=== PATIENT | male | born 1975 | race Caucasian/White ===

== ENCOUNTER 2019-01-04 08:08 | Day surgery (SDC) | payer MEDICAID, SELFPAY ==
--- NOTE | 2018-12-27 16:24 | EKG12_ITS ---
Test Reason : PRE OP Blood Pressure : / mmHG Vent. Rate : 089 BPM Atrial Rate : 089 BPM P-R Int : 136 ms QRS Dur : 096 ms QT Int : 360 ms P-R-T Axes : 048 017 035 degrees QTc Int : 438 ms Normal sinus rhythm Normal ECG When compared with ECG of 03-APR-2005 15:08, No significant change was found Confirmed by DEMETRIA GILL, OMAR ([id number]), editor sound JESUS HIDALGO ([id number]) on 01/03/2019 1:16:18 PM Referred By: Daniel Gonzalez Confirmed By:OMAR AUGUSTIN MD
[2018-12-27 17:18] LABS: Hemoglobin 14.6 g/dl (13.0-16.5); Mean Corpuscular Hgb 27.2 pg (27.0-32.0); Mean Corpuscular Volume 80.1 fL (80-94); Mean Platelet Vol. 10.3 fl (6.2-12.0); Platelet Count 272 K/mm3 (150-450); RBC Distribution Width CV 14.1 % (11.6-14.6); RBC Distribution Width SD 40.4 fl (35.1-43.9); Red Blood Count 5.37 M/mm3 (4.6-6.2); White Blood Count 9.2 K/mm3 (4.4-11.0)
[2018-12-27 17:19] LABS: Scan Indicated on CBC? Y/N NO
[2018-12-27 17:44] LABS: Anion Gap 8 (5-15); BUN 12 mg/dL (7-18); BUN/Creat Ratio 13.8 RATIO (10-20); Calcium,Total 8.8 mg/dL (8.5-10.1); Chloride 104 mmol/L (98-107); Creatinine, Serum 0.87 mg/dL (0.70-1.30); EST Glomerular Filtration Rate 102 mL/min (>60); Est Glom Filt Rate - Afr Amer 123 mL/min (>60); Glucose 224 mg/dL (74-106); Potassium 3.8 mmol/L (3.5-5.1); Sodium Level 136 mmol/L (136-145)
[2018-12-28 15:49] LABS: Hemoglobin A1c 8.2 % (4.2-6.3)
[2019-01-04] VITALS (8 sets, daily range): BP systolic 121–159; BP diastolic 78–97; PULSE 76–105; RESP 16–18; TEMP 35.7–36.5; O2SAT 92–100; BMI 45.3
[2019-01-04 09:00] LABS: Bedside Glucose 196 mg/dL (70-110)
[2019-01-04] MEDS: Oxymetazoline 0.05% 1 SPRAY SPRAY.BTL 15 SPRAY (10:12)
[2019-01-04] MEDS: Mupirocin Ointment 22gm Tube 1 APPLIC (11:51)
--- NOTE | 2019-01-04 11:57 | DCINST_ITS ---
You will use the following diet at home:: No restrictions Your food should be the consistency of: Regular Discharge Activity: May not drive while taking narcotic pain medications. Call your doctor if your incision/area has: Sudden Increased Bleeding, Increased Pain/ Swelling Additional Dressing/Incision Instructions:: mupirocin ointment to incision and nostrils twice daily. do not get nose wet. however, the morning of your follow up appointment, get it very wet in the shower. sleep with head of bed elevated. saline nasal spray to both nostrils 5 times daily. Allergies/Adverse Reactions: Allergies No Known Allergies Allergy (Verified 01/04/19 08:43) Medications to take at Discharge Allopurinol [Zyloprim] 300 mg PO DAILY 12/28/18 Atorvastatin Calcium [Lipitor] 40 mg PO QHS 12/28/18 Cholecalciferol (VIT D3) [Vitamin D] 1,000 unit PO DAILY 12/28/18 Cyclobenzaprine [Flexeril] 10 mg PO PRN PRN 12/28/18 Lisinopril [Zestril] 20 mg PO QHS 12/28/18 Metformin HCl [Glucophage] 500 mg PO 4X/DAY 12/28/18 Vitamin B Complex 1 tab PO DAILY 12/28/18 Oxycodone HCl/Acetaminophen [Percocet 5/325] 1 tab PO Q6H PRN PRN 5 Days #20 tab 01/04/19 Smz/Tmp Ds [Bactrim Ds] 1 tab PO BID #10 tab 01/04/19 The following prescriptions were given: Oxycodone HCl/Acetaminophen [Percocet 5/325] 1 tab PO Q6H PRN PRN 5 Days #20 tab PRN Reason: Pain Smz/Tmp Ds [Bactrim Ds] 1 tab PO BID #10 tab Orders to be completed after discharge: Hemoglobin A1c Time Frame: 12/28/18, Location: Laboratory Primary Care Physician: Ean Luu DO [Primary Care Provider] - Test Results: Test results from this visit will be discussed in further detail at your follow- up appointment, if applicable. Please Follow Up With: Daniel Gonzalez MD When: 1 week
--- NOTE | 2019-01-04 11:57 | PCM.OPRPT ---
Problem List (1) Nasal congestion Status: Chronic (2) Nasal turbinate hypertrophy Status: Chronic (3) Nasal valve collapse Status: Chronic (4) Deviated nasal septum Status: Chronic Report of Operation Date of Procedure: 01/04/19 Pre-Operative Diagnosis: 1. nasal congestion. 2. nasal septal deviation. 3. inferior turbinate hypertrophy. 4. internal nasal valve collapse, right and left Post-Operative Diagnosis: 1. nasal congestion. 2. nasal septal deviation. 3. inferior turbinate hypertrophy. 4. internal nasal valve collapse, right and left Surgery/Procedure Performed:: 1. open septorhinoplasty. 2. correction internal nasal valve collapse, right and left. 3. submucous resection inferior turbinates, right and left Type of Anesthesia:: General Description of Procedure: on the day of the procedure, after appropriate informed consent was obtained, the patient was brought to the operating room and placed in supine position on the operating table. he was placed under general endotracheal anesthesia by the anesthesiologist. the endotracheal tube was secured, the eyes were taped. the nose was injected with lidocaine/epinephrine. the face was prepped and draped in sterile fashion. the nose was decongested with oxymetazoline soaked pledgets. an inverted v columellar incision was made with a lower elwha blade. this traversed into right and left marginal incisions with an iris scizzor and three point retraction; the right and left lower lateral cartilages were skeletonized. the left and right scroll region and upper lateral cartilages were skeletonized. the medial crura were lateralized with brown forceps and the anterior septal angle was found with a color[place] tip bovie. left then right submucoperichondrial flaps were elevated with a rubi elevator. this was taken posteriorly to the bony/cartilaginous junction and inferiorly to the maxillary crest. the right and left upper lateral cartilages were disarticulated from the nasal septum with a #15 blade. given the patients high severe septal deflection, a D knife was used to remove the cartilaginous septum except for a 1cm preserved area off of the keystone. this was shaped for an anterior septal reconstruction on the back table and saved. deviated portions of the perpendicular plate of the ethmoid and vomer were removed with a gary sierra. the cartilage graft was placed as an internal optical laboratory mechanic graft on the right; this was sutured into place using 4-0 PDS between the septum and right upper lateral cartilage as well as to the maxillary crest periosteum. a 1cm x 2 mm internal optical laboratory mechanic graft was sutured between the septum and left upper lateral cartilage with 4-0 PDS. the submucoperichondrial flaps were brought together with numerous 4-0 chromic, several incorporating the graft. the head of the left inferior turbinate was injected with lidocaine/epinephrine. an incision was made in the head with a #15 blade. this was dissected submucosally with a rubi, reduced using suction electrocautery and outfractured using a boies elevator. the head of the right inferior turbinate was injected with lidocaine/epinephrine. an incision was made in the head with a #15 blade. this was dissected submucosally with a rubi, reduced using suction electrocautery and outfractured using a boies elevator. the inverted v columellar incision was closed with 7-0 vicryl, and the marginal incisions with 4-0 chromic. the latera trocar system was loaded. the right ala was everted with a double pronged skin hook. the vestibular skin was pierced with the trocar and advanced deep to the skin and soft tissue envelope, and lateral to the upper lateral cartilage and nasal bone. the implant was deployed and the trocar removed. the latera trocar system was loaded. the left ala was everted with a double pronged skin hook. the vestibular skin was pierced with the trocar and advanced deep to the skin and soft tissue envelope, and lateral to the upper lateral cartilage and nasal bone. the implant was deployed and the trocar removed. kaminski splints were sutured into place and a dorsal nasal splint was placed. a nasogastric tube was inserted and gastric contents were evacuated. the table was rotated 90 degrees toward the anesthesiologist where he was extubated. he was transferred to the PACU in stable condition.
--- NOTE | 2019-01-04 12:22 | OP.PCM_ITS ---
Problem List (1) Nasal congestion Status: Chronic (2) Nasal turbinate hypertrophy Status: Chronic (3) Nasal valve collapse Status: Chronic (4) Deviated nasal septum Status: Chronic Report of Operation Date of Procedure: 01/04/19 Pre-Operative Diagnosis: 1. nasal congestion. 2. nasal septal deviation. 3. inferior turbinate hypertrophy. 4. internal nasal valve collapse, right and left Post-Operative Diagnosis: 1. nasal congestion. 2. nasal septal deviation. 3. inferior turbinate hypertrophy. 4. internal nasal valve collapse, right and left Surgery/Procedure Performed:: 1. open septorhinoplasty. 2. correction internal nasal valve collapse, right and left. 3. submucous resection inferior turbinates, right and left Type of Anesthesia:: General Description of Procedure: on the day of the procedure, after appropriate informed consent was obtained, the patient was brought to the operating room and placed in supine position on the operating table. he was placed under general endotracheal anesthesia by the anesthesiologist. the endotracheal tube was secured, the eyes were taped. the nose was injected with lidocaine/epinephrine. the face was prepped and draped in sterile fashion. the nose was decongested with oxymetazoline soaked pledgets. an inverted v columellar incision was made with a la posta blade. this traversed into right and left marginal incisions with an iris scizzor and three point retraction; the right and left lower lateral cartilages were skeletonized. the left and right scroll region and upper lateral cartilages were skeletonized. the medial crura were lateralized with brown forceps and the anterior septal angle was found with a color[place] tip bovie. left then right submucoperichondrial flaps were elevated with a rubi elevator. this was taken posteriorly to the bony/cartilaginous junction and inferiorly to the maxillary crest. the right and left upper lateral cartilages were disarticulated from the nasal septum with a #15 blade. given the patients high severe septal deflection, a D knife was used to remove the cartilaginous septum except for a 1cm preserved area off of the keystone. this was shaped for an anterior septal reconstruction on the back table and saved. deviated portions of the perpendicular plate of the ethmoid and vomer were removed with a gary sierra. the cartilage graft was placed as an internal wealth management advisor graft on the right; this was sutured into place using 4-0 PDS between the septum and right upper lateral cartilage as well as to the maxillary crest periosteum. a 1cm x 2 mm internal wealth management advisor graft was sutured between the septum and left upper lateral cartilage with 4-0 PDS. the submucoperichondrial flaps were brought together with numerous 4-0 chromic, several incorporating the graft. the head of the left inferior turbinate was injected with lidocaine/epinephrine. an incision was made in the head with a #15 blade. this was dissected submucosally with a rubi, reduced using suction electrocautery and outfractured using a boies elevator. the head of the right inferior turbinate was injected with lidocaine/epinephrine. an incision was made in the head with a #15 blade. this was dissected submucosally with a rubi, reduced using suction electrocautery and outfractured using a boies elevator. the inverted v columellar incision was closed with 7-0 vicryl, and the marginal incisions with 4-0 chromic. the latera trocar system was loaded. the right ala was everted with a double pronged skin hook. the vestibular skin was pierced with the trocar and advanced deep to the skin and soft tissue envelope, and lateral to the upper lateral cartilage and nasal bone. the implant was deployed and the trocar removed. the latera trocar system was loaded. the left ala was everted with a double pronged skin hook. the vestibular skin was pierced with the trocar and advanced deep to the skin and soft tissue envelope, and lateral to the upper lateral cartilage and nasal bone. the implant was deployed and the trocar removed. kaminski splints were sutured into place and a dorsal nasal splint was placed. a nasogastric tube was inserted and gastric contents were evacuated. the table was rotated 90 degrees toward the anesthesiologist where he was extubated. he was transferred to the PACU in stable condition.
[2019-01-04 12:25] LABS: Bedside Glucose 214 mg/dL (70-110)
[2019-01-04] MEDS: HYDROcodone Bitartrate/Apap 5/325 Tablet PO (14:49)
== END 2019-01-04 15:16 | disposition home or self-care (01) ==
LOC: SDC 08:09 → AC 08:09
PROVIDERS: Family Provider Student in an Organized Health Care Education/Training Program; PCP Student in an Organized Health Care Education/Training Program; Referring Provider Otolaryngology; Visit Provider Otolaryngology
PROC: (CPT 20912; principal; 2019-01-04 09:55)
DX: J34.2 Deviated nasal septum (principal); J34.3 Hypertrophy of nasal turbinates; R09.81 Nasal congestion; M95.0 Acquired deformity of nose; G47.33 Obstructive sleep apnea (adult) (pediatric); I10 Essential (primary) hypertension; E11.9 Type 2 diabetes mellitus without complications; E78.00 Pure hypercholesterolemia, unspecified; F41.9 Anxiety disorder, unspecified; F32.9 Major depressive disorder, single episode, unspecified; Z79.84 Long term (current) use of oral hypoglycemic drugs; Z79.899 Other long term (current) drug therapy
CPT/HCPCS: 20912; 30140; 30420; 36415; 80048; 82962; 83036; 85027; 93005; J7120; J2405

== ENCOUNTER → 2019-02-24 | Outpatient (CLI) | payer MEDICAID, SELFPAY ==
[2019-01-04 08:45] VITALS: BMI 45.3
== END | disposition home or self-care (01) ==
LOC: SL 19:50
PROVIDERS: Family Provider Student in an Organized Health Care Education/Training Program; PCP Student in an Organized Health Care Education/Training Program; Referring Provider Otolaryngology; Visit Provider Otolaryngology
DX: G47.10 Hypersomnia, unspecified (principal); R06.81 Apnea, not elsewhere classified; R06.83 Snoring; I10 Essential (primary) hypertension
CPT/HCPCS: 95810

== ENCOUNTER → 2019-03-22 | Outpatient (CLI) | payer MEDICAID, SELFPAY ==
[2019-03-10 11:03] VITALS: BMI 45.3
== END | disposition home or self-care (01) ==
LOC: SL 15:22
PROVIDERS: Family Provider Student in an Organized Health Care Education/Training Program; PCP Student in an Organized Health Care Education/Training Program; Referring Provider Nurse Practitioner Acute Care; Visit Provider Nurse Practitioner Acute Care
DX: Z46.89 Encounter for fitting and adjustment of other specified devices (principal)

== ENCOUNTER → 2019-07-29 | Outpatient (CLI) | payer MEDICAID, SELFPAY ==
[2019-06-30 08:08] VITALS: BMI 44.4
== END | disposition home or self-care (01) ==
LOC: SL 22:46
PROVIDERS: Family Provider Student in an Organized Health Care Education/Training Program; PCP Student in an Organized Health Care Education/Training Program; Referring Provider Internal Medicine Critical Care Medicine; Visit Provider Internal Medicine Critical Care Medicine
DX: G47.33 Obstructive sleep apnea (adult) (pediatric) (principal)
CPT/HCPCS: 95811

== ENCOUNTER → 2019-08-12 | Outpatient (CLI) | payer MEDICAID, SELFPAY ==
[2019-06-30 08:08] VITALS: BMI 44.4
== END | disposition home or self-care (01) ==
LOC: SL 07:46
PROVIDERS: Family Provider Student in an Organized Health Care Education/Training Program; PCP Student in an Organized Health Care Education/Training Program; Referring Provider Nurse Practitioner Acute Care; Visit Provider Nurse Practitioner Acute Care
DX: Z46.89 Encounter for fitting and adjustment of other specified devices (principal)

== ENCOUNTER → 2019-10-03 09:49 | Outpatient (CLI) | payer MEDICAID, SELFPAY ==
[2019-10-03 08:12] VITALS: BMI 44.4
== END ==
PROVIDERS: Family Provider Student in an Organized Health Care Education/Training Program; PCP Student in an Organized Health Care Education/Training Program; Visit Provider Nurse Practitioner Acute Care
DX: Z46.89 Encounter for fitting and adjustment of other specified devices (principal)
CPT/HCPCS: 98960; G0463

== ENCOUNTER → 2021-06-04 07:20 | Outpatient (CLI) | payer MEDICAID, SELFPAY ==
[2021-06-18 18:31] LABS: ACHR AB Modulating <12 % (0-20); ACHR Recep AB, Blocking 10 % (0-25); Acetylcholine Receptor Binding < 0.03 nmol/L (0.00-0.24)
== END ==
PROVIDERS: PCP Student in an Organized Health Care Education/Training Program; Referring Provider Ophthalmology; Visit Provider Ophthalmology
DX: H02.412 Mechanical ptosis of left eyelid (principal)
CPT/HCPCS: 36415; 83519; 84238

== ENCOUNTER → 2024-10-05 | Outpatient (CLI) | payer OTHER, SELFPAY ==
--- NOTE | 2024-10-05 12:32 | RAD_ITS ---
STUDY: X-RAY - BILATERAL RIBS WITH CHEST REASON FOR EXAM: Male, 49 years old. Fall onto right anterior rib cage TECHNIQUE - RIBS: 6 view(s) of the ribs. TECHNIQUE - CHEST: Single PA view of the chest. COMPARISON: None. FINDINGS - RIBS : Normal visualized ribs without a demonstrated fracture. FINDINGS - CHEST: The lungs are clear and expanded. There is no demonstrated pleural abnormality. Normal size heart. Normal mediastinum and elena. Normal visualized pulmonary arteries. Normal visualized aortic arch and descending thoracic aorta. Normal visualized thoracic spine. Normal visualized ribs, clavicles, and shoulders. There is no demonstrated abnormality of the visualized soft tissue structures of the upper abdomen. RAD/Ribs Adilson Min 4V w/PA Chest IMPRESSION: RIBS: Normal x-ray examination of the bilateral ribs. CHEST: Normal x-ray examination of the chest. Electronically Signed: Osbaldo Montalvo MD at 13:03 EST ,
== END | disposition home or self-care (01) ==
LOC: MTRAD 12:32
PROVIDERS: PCP Student in an Organized Health Care Education/Training Program; Referring Provider Physician Assistant; Visit Provider Physician Assistant
DX: S20.211A Contusion of right front wall of thorax, initial encounter (principal); W19.XXXA Unspecified fall, initial encounter
CPT/HCPCS: 71111

== ENCOUNTER 2025-03-24 18:55 | Inpatient (IN) | payer OTHER, SELFPAY ==
[2025-03-24 18:57] VITALS: BP 93/80; PULSE 117; RESP 18; TEMP 36.4; O2SAT 96; BMI 39.9
--- NOTE | 2025-03-24 19:35 | EX.ED.DYSGE1 ---
HPI History of Present Illness Chief Complaint: General Illness Onset/Context/Timing Onset: Days Context: Gradual Onset Timing: Intermittent Current Severity: Mild Maximum Severity: Mild Narrative Narrative: 50-year-old male history of diabetes on metformin. States last 2 to 3 days. Thursday started with diarrhea at night. Multiple episodes again last night. Thursday felt lightheaded dehydrated. He also said he developed a red rash. Currently is on no antibiotics. Says it itches. Primarily below his abdomen back and legs. No prior history of allergic reaction. Prior similar symptoms: No Recent Illness/Hospitalization: No PFSH PFS Medical History Contusion of right chest wall Diabetes Deviated nasal septum Nasal valve collapse Nasal turbinate hypertrophy Nasal congestion Home Medications ?Medication ?Instructions ?Recorded ?Last Taken ?Type allopurinol 300 mg tablet 300 mg PO DAILY 12/28/18 03/23/25 History atorvastatin 40 mg tablet 40 mg PO QHS 12/28/18 03/23/25 History lisinopril 20 mg tablet 20 mg PO QHS 12/28/18 03/23/25 History metformin 500 mg tablet 750 mg PO DAILY 12/28/18 03/23/25 History glipizide 10 mg tablet, extended 10 mg PO QPM 03/24/25 03/23/25 History release 24 hr phentermine 37.5 mg tablet 37.5 mg PO DAILY 03/24/25 03/23/25 History topiramate 50 mg tablet 50 mg PO QHS 03/24/25 03/23/25 History Allergy/AdvReac Type Severity Reaction Status Date / Time No Known Allergies Allergy Verified 03/24/25 18:57 Family History Father Cancer prostate CVA (cerebral vascular accident) Diabetes Surgical History History of appendectomy History of rhinoplasty Social History Smoking Status: Never smoker second hand exposure: No ROS ROS ED ROS Narrative Diarrhea. Rash. Itching. Constitutional Constitutional ED: Denies chills or fever(s) Eyes Eyes: Denies blurry vision ENT ENT ED: Denies ear pain Cardiovascular Cardiovascular: Denies chest pain Respiratory/Chest Respiratory/Chest: Denies cough or dyspnea Gastrointestinal Gastrointestinal: Reports diarrhea; Denies abdominal pain, constipation, melena, nausea or vomiting Genitourinary Genitourinary ED: Denies dysuria or hematuria Musculoskeletal Musculoskeletal: Denies arthralgias or back pain Integumentary Reports rash; Denies abscess Neurologic Neurologic: Denies headache(s) Psychiatric Psychiatric: Denies anxiety Endocrine Endocrinology: Denies cold intolerance or heat intolerance Hematologic/Lymphatic Hematologic/Lymphatic: Reports none Allergic/Immunologic Allergic/Immunologic ED: Denies mouth swelling, tongue swelling or urticaria EXAM Physical Exam Narrative Exam Narrative: 50-year-old male. Sitting upright in bed. Initial blood pressure 93/80. Currently 112/72. Patient does not look septic or toxic. H EENT exam pupils round react to light. Dry mucous membranes. No facial droop no trauma. Neck nontender no JVD. Lungs clear to auscultation bilaterally. Heart tachycardic 117 no murmur. Chest wall ribs nontender. Abdomen soft nontender. Red rash that blanches no hives. No petechiae or purpura. No vesicles or pustules. Moving all 4 extremities. He is a chronic red rash of the lower extremities that does not eduardo that is not new he has and has had it for years. Calves nontender no edema. No cords. Back nontender. Nondescript rash that blanches there also. Again no vesicles. No pustules. No petechiae or peripheral. No sloughing of skin. Neurologically is awake alert. Answering questions following commands. Const Vital Signs: 03/24/25 18:57 03/24/25 19:28 03/24/25 20:56 Temperature 97.6 F L Temperature Source Oral Pulse Rate 117 H 103 H Respiratory Rate 18 Respiratory Effort Normal Non-Labored Respiratory Pattern Normal Blood Pressure 93/80 113/74 Blood Pressure Mean 84 87 Pulse Ox 96 93 Oxygen Delivery Method Room Air Room Air 03/24/25 22:00 03/24/25 22:20 03/24/25 23:08 Temperature 98.6 F 98.6 F 98.6 F Temperature Source Oral Oral Pulse Rate 103 H 104 H 104 H Respiratory Rate 19 H 16 Respiratory Effort Respiratory Pattern Blood Pressure 113/74 101/56 L 101/56 L Blood Pressure Mean 87 71 71 Pulse Ox 93 93 93 Oxygen Delivery Method Room Air Room Air 03/24/25 23:20 Temperature 98.6 F Temperature Source Oral Pulse Rate 100 Respiratory Rate 16 Respiratory Effort Respiratory Pattern Blood Pressure 116/67 Blood Pressure Mean 83 Pulse Ox 94 Oxygen Delivery Method Room Air Positive well nourished and well developed; Negative for cachectic, contractures or unkempt General Appearance ED: well developed and NAD; Negative for unkempt, cachectic, contractures, cyanotic, diaphoretic or pallor Nutritional Appearance: Negative for cachectic HEENT Reports dry mucous membranes Negative for trauma or tenderness Mouth ED: Yes dry mucous membranes Mouth: dry mucous membranes Eyes PERRL and EOMs intact bilaterally General Eye ED: Negative for pale conjunctiva or scleral icterus Neck no lymphadenopathy, supple and no JVD Chest Wall inspection of chest normal and palpation of chest normal Resp normal respiratory effort and clear to auscultation bilaterally Effort and Inspection: Negative for retractions Auscultation: Negative for rales, rhonchi, wheezes or diminished lung sounds Cardio regular rate, regular rhythm, S1 normal heart sound, S2 normal heart sound and no murmurs GI normal to inspection, nondistended, normoactive bowel sounds, non-tender, non-distended and no masses Auscultation: normoactive bowel sounds Palpation: soft; Negative for tender, guarding or rebound tenderness present Back/Spine no CVA tenderness General Back: Negative for CVA tenderness Cervical Spine: Negative for cervical spine tenderness Thoracic Spine / Upper Back: Negative for thoracic spinal tenderness or paraspinal muscle tenderness Lumbar Spine / Lower Back: Negative for lumbar spinal tenderness Extremity normal to inspection Extremity Narrative: Chronic rash lower extremity does not eduardo. General Extremety ED: Negative for edema or tenderness General Extremity: Negative for edema Neuro oriented x3 Sensorium / Orientation: alert; Negative for orientation impaired, lethargic or stuporous Motor Exam: strength 5/5 throughout Psych mental status grossly normal Appearance: Negative for unkempt Skin No no rashes or lesions noted and no wounds Skin Narrative: Rash abdomen and back. Red. Not hives. Possibly generalized allergic reaction. Does eduardo. No petechiae or purpura. No pustules. No vesicles. No sloughing of skin General Skin Exam: Negative for jaundice or pallor Lesions: No lesion noted Rashes: rashes noted MDM MDM MDM Narrative Medical decision making narrative: 50-year-old male allergic reaction with a rash we treated with IV Solu-Medrol. Was transiently hypotension has been having nausea, vomiting and diarrhea. clinically looks dehydrated. Will be treated with IV fluids and screening labs will be obtained. Patient has no abdominal pain. Multiple repeat exams patient was tachycardic and hypotensive was given 2 L of fluid that is all improved. Currently is resting comfortably at 11:50 PM. He is feeling improved. We went over his test results. His CAT scan has not shown anything specific. I will speak with the hospitalist about admission due to his elevated white count, transient hypotension, dehydration. History & Record Review Discussion w/independent historian: Patient and Family Additional record(s) reviewed:: Prior inpatient record, Prior outpatient record, Prior ED visit and Prior labs Lab Data Attestation: I reviewed the patient's lab results. Lab results narrative: CBC shows an elevated white count 21.2. H&H 18.756. Platelets 454. BMP shows sodium 130. Chloride 97. CO2 at 13. Gap is 19. BUN and creatinine 26 and 1.56. Glucose of 391. Lactic acid is elevated 5.9. Liver enzymes unremarkable. Lipase mildly elevated at 140. Urinalysis beginning positive for glucose. No nitrates. Micro pending. Labs: Laboratory Results - last 24 hr 03/24/25 03/24/25 19:53 23:10 WBC 21.2 H RBC 6.67 H Hgb 18.7 H* Hct 56.3 H MCV 84.4 MCH 28.0 MCHC 33.2 RDW Std Deviation 42.7 RDW Coeff of Hero 14.6 Plt Count 454 H MPV 10.0 Immature Gran % (Auto) 1.400 H Neut % (Auto) 70.6 H Lymph % (Auto) 19.5 [place] % (Auto) 5.6 Eos % (Auto) 2.0 Baso % (Auto) 0.9 Absolute Neuts (auto) 15.0 H Absolute Lymphs (auto) 4.14 Nucleated RBC % 0 Sodium 130 L Potassium 3.7 Chloride 97 L Carbon Dioxide 13.4 L Anion Gap 19 H BUN 26 H Creatinine 1.56 H Estim Creat Clear Calc 74.06 Est GFR (MDRD) Non-Af 54 L BUN/Creatinine Ratio 16.3 Glucose 391 H Lactic Acid 5.9 H* Calcium 9.4 Total Bilirubin 1.02 Direct Bilirubin 0.31 H AST 23 ALT 27 Alkaline Phosphatase 110 Total Protein 7.6 Albumin 4.5 Globulin 3.0 Lipase 140 H Urine Color Yellow Urine Clarity Clear Urine pH 5.0 Ur Specific [place] 1.010 Urine Protein 100 H Urine Glucose (UA) 1000 H Urine Ketones 5 H Urine Occult Blood Negative Urine Nitrite Negative Urine Bilirubin Negative Urine Urobilinogen Normal Ur Leukocyte Esterase Negative Radiography Diagnostic Testing: Clinical Impression(s) from Imaging Studies Abdomen/Pelvis CT 03/24/25 22:25 IMPRESSION: 1. Small esophageal hiatal hernia. 2. Hepatomegaly with fatty infiltration. 3. Fecal retention in the colon consistent with constipation. 4. Umbilical hernia containing fat. 5. No obstructive uropathy. 6. Degenerative changes lumbar spine as described. Reading Location: [facility] Rhythm Strip Rhythm Strip: Sinus Rhythm Rate: 88 Ectopy: None EKG Initial EKG: Attestation: I personally reviewed and interpreted this EKG as follows: Interpretation: Sinus Rhythm and No Acute Injury Pattern Comments: Normal sinus rhythm rate 88 no acute signs of ID or ischemia. No dysrhythmia. Discharge Plan Dx/Rx/DC Orders Clinical Impression: Diarrhea, Acute dehydration, Acute kidney injury, Acute hypotension, Leukocytosis, History of diabetes mellitus, Acute lactic acidosis, Rash Disposition Disposition: [facility]
--- OUTSIDE RECORDS SUMMARY | 2025-03-24 19:51 | XMS RPT_ITS | CCD ---
Author Organization [facility] Care Team Providers Care Device Engineer Name Role Phone Jus CHISHOLM Ean L Primary Care Provider [phone] MARGARET FOFANA Referring Unavailable LUU, EAN L Primary Care Unavailable LUU, EAN L Primary Care Unavailable REBA VAUGHAN Referring Unavailable Luu DO Ean Francheska Primary Care Provider Jus CHISHOLM Ean Francheska Primary Care Provider Deepak ELECTRIC MOTOR ANALYST.[place]enn [place] Unavailable Otoniel ELECTRIC MOTOR ANALYST.[place]i [place] Unavailable EAN LUU Attending Unavailable LUU, EAN L Primary Care Unavailable LUU, EAN L Attending Unavailable LUU, EAN L Primary Care Unavailable TJ DEL ANGEL Referring Unavailable LUU, EAN L Primary Care Unavailable CATRINA LOFTON Attending Unavaila ble LUU, EAN L Referring Unavailable LUU, EAN L Primary Care Unavailable PATRICK RUBIN Attending Unavailable LUU, EAN Francheska Primary Care Unavailable PATRICK RUBIN Attending Unavailable JENN SOTELO Referring Unavailabl e LUU, EAN L Primary Care Unavailable JENN SOTELO Attending Unavailabl e LUU, EAN L Primary Care Unavailable LUU, EAN L Referring Unavailable LUU, EAN L Primary Care Unavailable LUU, EAN L Referring Unavailable LUU, EAN L Primary Care Unavailable LUU, EAN L Attending Unavailable LUU, EAN L Primary Care Unavailable LUU, EAN L Attending Unavailable LUU, EAN L Primary Care Unavailable Luu, Ean Primary Care Unavailable Raji Hendricks Attending Unavailable Luu, Ean Referring Unavailable Luu, Ean Referring Unavailable Raji Hendricks Attending Unavailable Ean Luu Primary Care Unavailable Raji Hendricks Attending Unavailable Ean Luu Primary Care Unavailable Ean Luu Referring Unavailable Raji Hendricks Attending Unavailable Raji Hendricks Referring Unavailable Ean Luu Primary Care Unavailable Ena Luu Primary Care Unavailable Raji Hendricks Attending Unavailable Ean Luu Referring Unavailable Allergies Allergy Classification Reported Allergen(s) Allergy Type Date of Onset Reaction(s) Facility (11 sources) Phentermine; Translations: [PHENTERMINE] Drug Allergy 03-25-2024 Other: See Comments [facility] Medications Current Medications Medication Drug Class(es) Dates Sig (Normalized) Sig (Original) acyclovir 800 mg oral tablet (1 source) Herpesvirus Nucleoside Analog DNA Polymerase Inhibitor, Herpes Simplex Virus Nucleoside Analog DNA Polymerase Inhibitor, Herpes Zoster Virus Nucleoside Analog DNA Polymerase Inhibitor Start: 07-15-2023 End: 07-25-2023 take 1 tablet by mouth three times daily acyclovir (ZOVIRAX) 800 mg tablet Indications: Trigeminal neuralgia of left side of face Take 1 tablet by mouth three times a day for 10 days. Take at first signs of outbreak. 30 tablet 0 07/15/2023 07/25/2023 Active Comment on above: Take 1 tablet by christina th three times a day for 10 days. Take at first signs of outbreak. allopurinol 300 mg oral tablet (20 sources) Xanthine Oxidase Inhibitor Start: 04-02-2022 End: 04-19-2024 take 1 tablet by mouth once daily allopurinol (ZYLOPRIM) 300 mg tablet Indications: Gout, unspecified cause, unspecified chronicity, unspecified site Take 1 tablet by mouth once daily. 90 tablet 3 04/19/2024 Active Start: 06-26-2021 take 1 tablet by christina th once daily allopurinol (ZYLOPRIM) 300 mg tablet Indications: Gout, unspecified cause, unspecified chronicity, unspecified site Take 1 tablet by mouth once daily. 90 tablet 3 06/26/2021 Active Comment on above: Take 1 tablet by christina th once daily. amoxicillin 875 mg / clavulanate 125 mg oral tablet (1 source) Penicillin-class Antibacterial Start: 05-17-20 End: 05-27-20 24 take 1 tablet by mouth twice daily amoxicillin-clavulanat e potassium (AUGMENTIN) 875-125 mg per tablet Take 1 tablet by mouth two times a day for 10 days. 20 tablet 05/17/2024 05/27/2024 Active atorvastatin 40 mg oral tablet (20 sources) HMG-CoA Reductase Inhibitor Start: 07-18-20 End: 12-07-19 take 1 tablet by mouth once daily atorvastatin (LIPITOR) 40 mg tablet Indications: Hyperlipidemia with target LDL less than 100 Take 1 tablet by mouth once daily. 90 tablet 3 12/06/2024 Active Start: 04-02-2022 End: 07-14-2024 take 1 tablet by mouth once daily atorvastatin (LIPITOR) 40 mg tablet Indications: Hyperlipidemia with target LDL less than 100 Take 1 tablet by mouth once daily. 90 tablet 1 02/01/2024 07/14/2024 Discontinued Start: 06-26-2021 End: 12-25-2021 take 1 tablet by mouth once daily atorvastatin (LIPITOR) 40 mg tablet Take 1 tablet by mouth once daily. 90 tablet 1 12/25/2021 Active Comment on above: Take 1 tablet by christina th once daily. Blood-Glucose Meter monitoring kit (1 source) Start: 4 End: Blood-Glucose Meter monitoring kit Indications: Uncontrolled type 2 diabetes mellitus with hyperglycemia (HCC) Glucose Meter of Choice - Kit - Dx: Type 2 DM - Uncontrolled E11.65 1 Each 0 03/07/2024 03/08/2024 Active famotidine 40 mg oral tablet (20 sources) Histamine-2 Receptor Antagonist Start: 2 take 1 tablet by mouth at bedtime as needed famotidine (PEPCID) 40 mg tablet Indications: GERD without esophagitis Take 1 tablet by mouth at bedtime as needed. For acid reflux 30 tablet 11 07/09/2022 Active Comment on above: Take 1 tablet by christina th at bedtime as needed. For acid reflux glipiZIDE er 10 mg 24 hr extended release oral tablet (20 sources) Sulfonylurea Start: 3 End: 4 take 1 tablet by mouth once daily glipiZIDE (GLUCOTROL XL) 10mg 24 hr tablet Indications: Uncontrolled type 2 diabetes mellitus with hyperglycemia (HCC) Take 1 tablet by mouth once daily. With supper 30 tablet 11 05/17/2024 Active Start: 02-09-2023 End: 02-23-2024 take 1 tablet by mouth once daily glipiZIDE (GLUCOTROL) 10 mg tablet Take 1 tablet by mouth once daily. 30 tablet 11 02/09/2023 02/23/2024 Discontinued (Duplicate Entry) Comment on above: Take 1 tablet by christina th once daily. Take 1 tablet by christina th once daily. With supper isopropyl alcohol 0.7 ml/ml medicated pad (11 sources) Start: 03-07-20 24 alcohol swabs Indications: Uncontrolled type 2 diabetes mellitus with hyperglycemia (HCC) Use with blood glucose test 2 times daily. Insulin Dep? No 200 Each 5 03/07/2024 Active lisinopril 20 mg oral tablet (20 sources) Angiotensin Converting Enzyme Inhibitor Start: 06-26-20 End: 12-07-19 take 1 tablet by mouth once daily lisinopril (ZESTRIL) 20 mg tablet Indications: Essential hypertension Take 1 tablet by mouth once daily. 90 tablet 3 12/06/2024 Active Comment on above: Take 1 tablet by christina th once daily. take 1 tablet by christina th daily 24 hr metFORMIN hydrochloride 750 mg extended release oral tablet (20 sources) Biguanide Start: 09-23-20 End: 03-05-20 metFORMIN ER (GLUCOPHAGE XR) 750 mg 24 hr tablet Indications: Uncontrolled type 2 diabetes mellitus with hyperglycemia (HCC) Take 2 tablets with supper. 180 tablet 1 03/06/2025 Active Start: 04-02-2022 End: 04-02-2023 metFORMIN ER (GLUCOPHAGE XR) 750 mg 24 hr tablet Indications: Uncontrolled type 2 diabetes mellitus with hyperglycemia (HCC) Take 2 tablets with supper. 180 tablet 1 04/02/2023 Active Start: 06-26-2021 End: 12-25-2021 metFORMIN ER (GLUCOPHAGE XR) 750 mg 24 hr tablet Take 2 tablets with supper. 180 tablet 1 12/25/2021 Active Comment on above: Take 2 tablets with supper. ONETOUCH ULTRA2 METER (9 sources) Start: 03-20-2024 ONETOUCH ULTRA2 METER 1 Each by VIA DEVICE route once daily. 03/20/2024 Active Start: 03-20-2024 ONETOUCH ULTRA 2 METER 1 Each by VIA DEVICE route once daily. 0 03/20/2024 Active phentermine hydrochloride 37.5 mg oral tablet (5 sources) Sympathomimetic Amine Anorectic Start: 01-15-2024 End: 02-14-2024 take 1 tablet by mouth once daily Phentermine HCl (ADIPEX-P) 37.5 mg tablet Indications: Uncontrolled type 2 diabetes mellitus with hyperglycemia (HCC) Take 1 tablet by mouth once daily for 30 days. BMI 41.70 30 tablet 2 01/15/2024 02/14/2024 Active Comment on above: Take 1 tablet by christina th once daily for 30 days. BMI 41.70 sodium chloride-aloe vera (AYR SALINE) topical nasal gel (20 sources) Start: 08-11-2018 sodium chloride-aloe vera (AYR SALINE) topical nasal gel 1 application by INTRANASAL route at bedtime as needed (nasal dryness). 1 Each 5 08/11/2018 Active Comment on above: 1 application by INT RANASAL route at bedtime as needed (nasal dryness). sulfamethoxazole 800 mg / trimethoprim 160 mg oral tablet (1 source) Dihydrofolate Reductase Inhibitor Antibacterial, Sulfonamide Antimicrobial Start: 01-15-2024 End: 01-25-2024 take 1 tablet by mouth twice daily sulfamethoxazole- trimethoprim (BACTRIM DS) 800-160 mg per tablet Indications: Infected cyst of skin Take 1 tablet by mouth two times a day for 10 days. 20 tablet 1 01/15/2024 01/25/2024 Active Comment on above: Take 1 tablet by christina th two times a day for 10 days. topiramate 50 mg oral tablet (6 sources) Start: 05-17-2024 End: 12-06-2024 take 1 tablet by mouth once daily at bedtime topiramate (TOPAMAX) 50 mg tablet Take 1 tablet by mouth daily at bedtime. For weight loss 90 tablet 3 12/06/2024 Active Completed/Discontinued Medications Medication Drug Class(es) Dates Sig (Normalized) Sig (Original) amitriptyline hydrochloride 25 mg oral tablet (20 sources) Tricyclic Antidepressant Start: 04-02-2022 End: 12-06-2024 take 1-2 tablets by mouth once daily at bedtime amitriptyline (ELAVIL) 25 mg tablet Indications: Situational insomnia Take 1-2 tablets by mouth daily at bedtime. For insomnia 180 tablet 1 04/02/2022 12/06/2024 Discontinued Comment on above: Take 1-2 tablets by mouth daily at bedtime. For insomnia carbamide peroxide 65 mg/ml otic solution (20 sources) Start: 08-11-2018 End: 05-17-2024 carbamide peroxide (DEBROX) 6.5 % otic solution Indications: Bilateral impacted cerumen Use 5 Drops in both ears twice daily. 18 mL 1 01/07/2023 05/17/2024 Discontinued Comment on above: Use 5 Drops in both ears twice daily. cholecalciferol 0.125 mg oral capsule (20 sources) Vitamin D Start: 04-02-2022 End: 05-17-2024 take 1 capsule by mouth once daily Cholecalciferol, Vitamin D3, 125 mcg (5,000 unit) cap Take 1 capsule by mouth once daily. 30 capsule 11 04/02/2022 05/17/2024 Discontinued Start: 06-26-2021 take 1 capsule by mo ut once daily Cholecalciferol, Vitamin D3, 125 mcg (5,000 unit) cap Take 1 capsule by mouth once daily. 30 capsule 11 06/26/2021 Active Comment on above: Take 1 capsule by mo uth once daily. CPAP/BIPAP/OTHER (20 sources) Start: 02-25-2023 End: 05-17-2024 CPAP/BIPAP/OTHER Lower Settings to fixed pressure IPAP 12, EPAP min 6, PS 6 cm H2O, suitable mask per pt preference, chin strap, head gear, humidity, tubing, lifetime supplies. G47.33 MIKKI 1 Each 02/25/2023 05/17/2024 Discontinued Start: 02-25-2023 End: 07-12-2050 CPAP/BIPAP/OTHER Lower Setti ngs to fixed pressure IPAP 12, EPAP min 6, PS 6 cm H2O, suitable mask per pt preference, chin strap, head gear, humidity, tubing, lifetime supplies. G47.33 MIKKI 1 Each 0 02/25/2023 07/12/2050 Active Start: 02-17-2023 End: 02-25-2023 CPAP/BIPAP/OTHER Lower Setti ngs to IPAP max 16, EPAP min 6, PS 6 cm H2O, suitable mask per pt preference, chin strap, head gear, humidity, tubing, lifetime supplies. G47.33 MIKKI 1 Each 0 02/17/2023 02/25/2023 Discontinued Start: 02-17-2023 End: 07-04-2050 CPAP/BIPAP/OTHER Lower Setti ngs to IPAP max 16, EPAP min 6, PS 6 cm H2O, suitable mask per pt preference, chin strap, head gear, humidity, tubing, lifetime supplies. G47.33 MIKKI 1 Each 0 02/17/2023 07/04/2050 Active Start: 02-13-2023 End: 05-17-2024 CPAP/BIPAP/OTHER Type .CPAPS ettings into a note to see current settings/supplies/DME information. 1 Each 02/13/2023 05/17/2024 Discontinued Start: 02-13-2023 End: 06-30-2050 CPAP/BIPAP/OTHER Type .CPAPS ettings into a note to see current settings/supplies/DME information. 1 Each 0 02/13/2023 06/30/2050 Active Start: 12-03-2022 End: 04-19-2050 CPAP/BIPAP/OTHER New set up: Settings IPAP max 20, EPAP min 7, PS 6 cm H2O, suitable mask per pt preference, chin strap, head gear, humidity, tubing, lifetime supplies. G47.33 MIKKI 1 Each 0 12/03/2022 04/19/2050 Active Comment on above: New set up: Settings IPAP max 20, EPAP min 7, PS 6 cm H2O, suitable mask per pt preference, chin strap, head gear, humidity, tubing, lifetime supplies. G47.33 MIKKI Type .CPAPSettings i nto a note to see current settings/supplies/DME information. Lower Settings to IP AP max 16, EPAP min 6, PS 6 cm H2O, suitable mask per pt preference, chin strap, head gear, humidity, tubing, lifetime supplies. G47.33 MIKKI Lower Settings to fi xed pressure IPAP 12, EPAP min 6, PS 6 cm H2O, suitable mask per pt preference, chin strap, head gear, humidity, tubing, lifetime supplies. G47.33 MIKKI dapagliflozin 10 mg oral tablet (20 sources) Sodium-Glucose Cotransporter 2 Inhibitor Start: 04-02-20 End: 02-28-20 take 1 tablet by mouth once daily at dinner for diabetes mellitus dapagliflozin (FARXIGA) 10 mg tablet Indications: Uncontrolled type 2 diabetes mellitus with hyperglycemia (HCC) Take 1 tablet by mouth daily with dinner. For diabetes 90 tablet 1 10/01/2022 02/27/2023 Discontinued Start: 09-25-2021 End: 12-25-2021 take 1 tablet by mouth once daily at dinner for diabetes mellitus dapagliflozin (FARXIGA) 10 mg tablet Take 1 tablet by mouth daily with dinner. For diabetes 90 tablet 1 12/25/2021 Active Comment on above: Take 1 tablet by christina th daily with dinner. For diabetes diclofenac sodium 0.01 mg/mg topical gel (20 sources) Nonsteroidal Anti-inflammatory Drug Start: End: diclofenac (VOLTAREN ARTHRITIS PAIN) 1 % topical gel Indications: Chronic pain of both shoulders , Finger pain, left Apply 2 g to affected area twice daily as needed. On left shoulder or 5th finger with joint pain 200 g 2 01/07/2023 05/17/2024 Discontinued Comment on above: Apply 2 g to affecte d area twice daily as needed. On left shoulder or 5th finger with joint pain empagliflozin 25 mg oral tablet (6 sources) Sodium-Glucose Cotransporter 2 Inhibitor Start: End: take 1 tablet by mouth once daily, then take 1 tablet by mouth once daily in the morning empagliflozin (JARDIANCE) 25 mg tablet Take 1 tablet by mouth once daily. Take 1 tablet once daily in the morning 30 tablet 5 02/27/2023 07/15/2023 Discontinued Comment on above: Take 1 tablet by christina th once daily. Take 1 tablet once daily in the morning meloxicam 15 mg oral tablet (13 sources) Nonsteroidal Anti-inflammatory Drug Start: 018 End: take 1 tablet by mouth once daily at mealtime meloxicam (MOBIC) 15 mg tablet Indications: Left lateral epicondylitis , Left elbow pain TAKE 1 TABLET BY MOUTH ONCE DAILY WITH FOOD 30 tablet 0 08/03/2018 10/30/2022 Discontinued Comment on above: TAKE 1 TABLET BY CHRISTINA TH ONCE DAILY WITH FOOD mupirocin 0.02 mg/mg topical ointment (20 sources) RNA Synthetase Inhibitor Antibacterial Start: End: mupirocin (BACTROBAN) 2 % ointment Apply to affected area two times a day as needed (skin infection). 30 g 1 01/15/2024 05/17/2024 Discontinued Comment on above: Apply to affected ar ea twice daily as needed (skin infection). Apply to affected ar ea two times a day as needed (skin infection). sildenafil 100 mg oral tablet (3 sources) Phosphodiesterase 5 Inhibitor Start: End: take 1 tablet by mouth once daily as needed sildenafil (VIAGRA) 100 mg tablet Take 1 tablet by mouth once daily as needed. Take 30-60 minutes before sexual activity. 20 tablet 1 05/17/2024 09/01/2024 Discontinued SITagliptin 100 mg oral tablet (20 sources) Dipeptidyl Peptidase 4 Inhibitor Start: End: take 1 tablet by mouth once daily at dinner SITagliptin phosphate (JANUVIA) 100 mg tablet Indications: Uncontrolled type 2 diabetes mellitus with hyperglycemia (HCC) Take 1 tablet by mouth daily with dinner. 90 tablet 1 10/01/2022 02/26/2023 Discontinued (Not on Formulary) Start: 06-26-2021 End: 12-25-2021 take 1 tablet by mouth once daily at dinner SITagliptin (JANUVIA) 100 mg tablet Take 1 tablet by mouth daily with dinner. 90 tablet 1 12/25/2021 Active Comment on above: Take 1 tablet by christina th daily with dinner. tadalafil 10 mg oral tablet (20 sources) Phosphodiesterase 5 Inhibitor Start: 06-26-2021 Tadalafil (CIALIS) 10 mg tablet Take 1 tablet by mouth as needed (erectile dysfunction). 30 tablet 5 06/26/2021 Active Start: 03-13-2021 End: 05-17-2024 Tadalafil (CIALIS) 5 mg tabl et Indications: ED (erectile dysfunction) of organic origin Take 1 tablet by mouth as needed (sexual dysfunction). 16 tablet 3 03/13/2021 05/17/2024 Discontinued Comment on above: Take 1 tablet by christina th as needed (sexual dysfunction). Take 1 tablet by christina th as needed (erectile dysfunction). tiZANidine 2 mg oral tablet (20 sources) Central alpha-2 Adrenergic Agonist Start: End: take 1 tablet by mouth at bedtime as needed tiZANidine (ZANAFLEX) 2 mg tablet Indications: Carpal tunnel syndrome, bilateral Take 1-2 tablets by mouth at bedtime as needed. Muscle spasm, pain 60 tablet 3 04/02/2022 05/17/2024 Discontinued Start: 06-26-2021 take 1 tablet by christina th at bedtime as needed tiZANidine (ZANAFLEX) 2 mg tablet Indications: Carpal tunnel syndrome, bilateral Take 1-2 tablets by mouth at bedtime as needed. Muscle spasm, pain 60 tablet 3 06/26/2021 Active Comment on above: Take 1-2 tablets by mouth at bedtime as needed. Muscle spasm, pain traZODone hydrochloride 50 mg oral tablet (3 sources) Serotonin Reuptake Inhibitor Start: take 1 tablet by mouth once daily at bedtime traZODone (DESYREL) 50 mg tablet Indications: Chronic insomnia Take 1 tablet by mouth daily at bedtime. For insomnia 90 tablet 1 06/26/2021 Active Comment on above: Take 1 tablet by christina th daily at bedtime. For insomnia vardenafil 20 mg oral tablet (9 sources) Phosphodiesterase 5 Inhibitor Start: End: 023 Vardenafil HCl 20 mg tablet Take 0.5-1 tablets by mouth as needed (erectile dysfunction). 30 tablet 2 04/02/2022 10/30/2022 Discontinued Comment on above: Take 0.5-1 tablets b y mouth as needed (erectile dysfunction). Vitamin B Complex (20 sources) Start: End: 024 take 1 tablet by mouth once daily vitamin b complex (B-COMPLEX) tab Indications: Fatigue, unspecified type Take 1 tablet by mouth once daily. 30 tablet 11 05/07/2022 05/17/2024 Discontinued Start: 05-07-2022 take 1 tablet by christina th once daily vitamin b complex (B-COMPLEX) tab Indications: Fatigue, unspecified type Take 1 tablet by mouth once daily. 30 tablet 11 05/07/2022 Active Start: 03-13-2021 End: 05-05-2022 take 1 tablet by mouth once daily vitamin b complex (B-COMPLEX) tab Indications: Fatigue, unspecified type Take 1 tablet by mouth once daily. 30 tablet 11 03/13/2021 05/05/2022 Discontinued Start: 03-13-2021 take 1 tablet by christina th once daily vitamin b complex (B-COMPLEX) tab Indications: Fatigue, unspecified type Take 1 tablet by mouth once daily. 30 tablet 11 03/13/2021 Active Comment on above: Take 1 tablet by christina th once daily. Problems Active Problems Problem Classification Problem Date Documented Date Episodic/Chronic Administrative/socia l admission (2 sources) Patient encounter status; Translations: [Dietary counseling and surveillance] Episodic Anxiety disorders (20 sources) Anxiety; Translations: [Anxiety disorder, unspecified] Onset: 12-19-2009 12-19-2009 Chronic Diabetes mellitus with complications (20 sources) Type II diabetes mellitus uncontrolled; Translations: [Type 2 diabetes mellitus with hyperglycemia] Onset: 08-29-2019 Chronic Diabetes mellitus without complication (20 sources) Type 2 diabetes mellitus without complication; Translations: [Type 2 diabetes mellitus without complications] Onset: 10-24-2022 Chronic Disorders of lipid metabolism (20 sources) Hyperlipidemia; Translations: [Hyperlipidemia, unspecified] Onset: 12-29-2010 Chronic E Codes: Fall (1 source) Unspecified fall, initial encounter; Translations: [Unspecified fall, initial encounter] Onset: 10-17-2024 Episodic Esophageal disorders (20 sources) Gastroesophageal reflux disease without esophagitis; Translations: [Gastro-esophageal reflux disease without esophagitis] Onset: 07-09-2022 Chronic Essential hypertension (20 sources) Essential hypertension; Translations: [Essential (primary) hypertension] Onset: 12-29-2010 Chronic Genitourinary symptoms and ill-defined conditions (1 source) Dysuria; Translations: [Dysuria] 02-10-2024 Episodic Gout and other crystal arthropathies (20 sources) Gout; Translations: [Gout, unspecified] Onset: 12-19-2009 Resolved: 11-27-2016 10-08-2017 Chronic Miscellaneous mental health disorders (20 sources) Chronic insomnia; Translations: [Psychophysiologic insomnia] Onset: 03-13-2021 03-13-2021 Chronic Nutritional deficiencies (20 sources) Vitamin D deficiency; Translations: [Vitamin D deficiency, unspecified] Onset: 07-09-2022 Chronic Other male genital disorders (20 sources) Secondary erectile dysfunction; Translations: [Male erectile dysfunction, unspecified] Onset: 08-29-2019 08-29-2019 Chronic Other male genital disorders (1 source) Male erectile dysfunction, unspecified; Translations: [ED (erectile dysfunction) of organic origin] Onset: 08-29-2019 Chronic Other nervous system disorders (20 sources) Bilateral carpal tunnel syndrome; Translations: [Carpal tunnel syndrome, bilateral upper limbs] Onset: 06-26-2021 06-26-2021 Chronic Other nervous system disorders (1 source) Left trigeminal neuralgia; Translations: [Trigeminal neuralgia] 07-15-2023 Episodic Other nutritional; endocrine; and metabolic disorders (20 sources) Body mass index 40+ - severely obese; Translations: [Morbid (severe) obesity due to excess calories] Onset: 02-19-2018 Chronic Other nutritional; endocrine; and metabolic disorders (20 sources) Morbid obesity; Translations: [Morbid (severe) obesity due to excess calories] Onset: 10-07-2008 10-07-2008 Chronic Other nutritional; endocrine; and metabolic disorders (4 sources) Severe obesity; Translations: [Morbid (severe) obesity due to excess calories] Chronic Other nutritional; endocrine; and metabolic disorders (2 sources) Morbid (severe) obesity due to excess calories; Translations: [Class 3 severe obesity with serious comorbidity and body mass index (BMI) of 40.0 to 44.9 in adult, unspecified obesity type (HCC)] Onset: 10-07-2008 Chronic Other nutritional; endocrine; and metabolic disorders (1 source) Body mass index (BMI) 40.0-44.9, adult; Translations: [Class 3 severe obesity with serious comorbidity and body mass index (BMI) of 40.0 to 44.9 in adult, unspecified obesity type (HCC)] Onset: 10-28-2022 Chronic Other screening for suspected conditions (not mental disorders or infectious disease) (1 source) Imaging of thorax abnormal; Translations: [Abnormal findings on diagnostic imaging of other specified body structures] Chronic Residual codes; unclassified (20 sources) Obstructive sleep apnea syndrome; Translations: [Obstructive sleep apnea (adult) (pediatric)] Onset: 03-15-2019 03-15-2019 Chronic Residual codes; unclassified (2 sources) Obstructive sleep apnea (adult) (pediatric); Translations: [MIKKI (obstructive sleep apnea)] Onset: 12-03-2022 Chronic Superficial injury; contusion (1 source) Contusion of right front wall of thorax, initial encounter; Translations: [Contusion of right front wall of thorax, initial encounter] Onset: 12-12-2024 Episodic Unclassified (20 sources) Type 2 diabetes mellitus without complication; Translations: [Diabetes mellitus type 2, uncontrolled, without complications] Onset: 02-07-2016 02-07-2016 Past or Other Problems Problem Classification Problem Date Documented Da te Episodic/Chronic Malaise and fatigue (20 sources) Fatigue; Translations: [Other fatigue] Onset: 02-19-2018 02-19-2018 Episodic Nutritional deficiencies (20 sources) Cobalamin deficiency; Translations: [Deficiency of other specified B group vitamins] Onset: 01-15-2024 06-10-2023 Episodic Other connective tissue disease (20 sources) Bursitis of shoulder; Translations: [Bursitis of right shoulder] Onset: 02-19-2018 02-19-2018 Episodic Other connective tissue disease (20 sources) Pain in finger of left hand; Translations: [Pain in left finger(s)] Onset: 03-13-2021 03-13-2021 Episodic Other connective tissue disease (20 sources) Bursitis of right shoulder; Translations: [Bursitis of right shoulder] Onset: 02-19-2018 02-19-2018 Episodic Other ear and sense organ disorders (20 sources) Impacted cerumen of bilateral ears; Translations: [Impacted cerumen, bilateral] Onset: 01-07-2023 01-07-2023 Episodic Other eye disorders (7 sources) Ptosis of left eyelid; Translations: [Unspecified ptosis of left eyelid] Onset: 05-19-2024 05-19-2024 Episodic Other eye disorders (1 source) Unspecified ptosis of left eyelid; Translations: [Ptosis, left eyelid] Onset: 05-19-2024 Episodic Other lower respiratory disease (20 sources) Multiple nodules of lung; Translations: [Other nonspecific abnormal finding of lung field] Onset: 10-30-2022 Episodic Other non-traumatic joint disorders (3 sources) Shoulder pain; Translations: [Pain in right shoulder] Onset: 03-13-2021 03-13-2021 Episodic Other non-traumatic joint disorders (20 sources) Bilateral chronic pain of upper limbs; Translations: [Pain in right shoulder] Onset: 03-13-2021 03-13-2021 Episodic Other nutritional; endocrine; and metabolic disorders (19 sources) Metabolic syndrome X; Translations: [Dysmetabolic syndrome X] Onset: 10-10-2008 Resolved: 11-27-2016 11-27-2016 Chronic Other screening for suspected conditions (not mental disorders or infectious disease) (4 sources) Decreased testosterone level ; Translations: [Other specified abnormal findings of blood chemistry] Onset: 01-15-2024 01-26-2024 Episodic Other skin disorders (20 sources) Actinic keratosis; Translations: [Actinic keratosis] Onset: 06-26-2021 Episodic Other skin disorders (20 sources) Cyst of skin; Translations: [Follicular cyst of the skin and subcutaneous tissue, unspecified] Onset: 01-15-2024 01-15-2024 Episodic Other skin disorders (5 sources) Sebaceous cyst of skin; Translations: [Sebaceous cyst] Onset: 01-25-2016 Resolved: 11-27-2016 11-27-2016 Episodic Other skin disorders (19 sources) Skin tag; Translations: [Other hypertrophic disorders of the skin] Onset: 01-25-2016 Resolved: 11-27-2016 11-27-2016 Episodic Other skin disorders (16 sources) Infection of sebaceous cyst; Translations: [Sebaceous cyst] Onset: 01-25-2016 Resolved: 03-07-2024 02-23-2024 Episodic Other skin disorders (1 source) Follicular cyst of the skin and subcutaneous tissue, unspecified; Translations: [Infected cyst of skin] Onset: 01-15-2024 Episodic Skin and subcutaneous tissue infections (20 sources) Abscess of chest wall; Translations: [Cutaneous abscess of chest wall] Onset: 09-17-2015 Resolved: 11-27-2016 11-27-2016 Episodic Results Test Name Value Interpretation Reference Range Facility [facility] 12-06-2024 [facility] Office Visit ([facility] ) ROE INTERIANO ([id number]) 1975 M Date Time Provider Department 12/06/24 2:40 PM EAN LUUPWS During your visit today, we recorded the following information about you: Temperature Pulse Respiration Blood pressure 96.4 degrees 80/minute 16/minute 126/68 Weight 123.8 kg Ean Luu, DO 12/06/2024 5:09 PM Signed Patient presents with: F/U 3 Month HPI: Roe Interiano is a 49 year old male who presents to the office today for review of health conditions. Concerns today: Overall he is doing well He had recent PTOSIS surgery on left upper eyelid. He is not willing to do his labs at this time Mr. Interiano has past history of diabetes. Since our last visit he denies excessive thirst or increased frequency of urination, chest pain or dyspnea , new or unusual visual symptoms, and low sugar/hypoglycemic reactions. Depression- no. Follows a diabetic diet some of the time. He is compliant with medication(s) and is tolerating med(s) without any side effects. He reports checking his glucose on a infrequent to not at all basis schedule. Patient's last HgA1C was Hemoglobin A1C (%) Date Value 05/06/2024 6.9 01/15/2024 10.9 09/02/2021 10.3 06/21/2021 9.6 Hemoglobin A1C (POCT) (%) Date Value 10/01/2022 9.8 ) Last Ophthalmology exam was within the past 12 months Mr. Interiano reports history of hyperlipidemia. Current therapy includes diet and exercise. Denies side effects of muscle weakness or achiness. His most recent lipid panels are reviewed. Cholesterol, Total (mg/dL) Date Value 05/06/2024 114 06/21/2021 144 HDL Cholesterol (mg/dL) Date Value 05/06/2024 28 06/21/2021 30 LDL Cholesterol (mg/dL) Date Value 05/06/2024 37 06/21/2021 Unable to calculate due to increased Triglycerides. See LDL-Chol, Direct. LDL Cholesterol, Nonfasting (no units) Date Value 01/15/2024 Comment: Unable to calculate due to increased Triglycerides. A Direct LDL Cholesterol measurement will not be performed. If clinically indicated, a fasting Basic Lipid Panel (LIPB) may be ordered. Triglyceride (mg/dL) Date Value 05/06/2024 247 06/21/2021 539 Mr. Interiano indicates a history of hypertension and states that he is feeling well and denies any symptoms referable to elevated blood pressure. Specifically denies headache, chest pain, palpitations, dyspnea, and peripheral edema. Patient denies any side effects of his medication(s) and is compliant with their regimen. Last 3 Encounter BP Readings: Date: BP: 12/06/2024 126/68 08/30/2024 130/80 05/17/2024 140/82 He watches his diet for sodium, low fat and low cholesterol some of the time. He does not check BP's generally. Roe gets minimal exercise. 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 Sebaceous cyst 01/25/2016 Sleep apnea Did not tolerate CPAP PAST SURGICAL HISTORY Procedure Laterality Date APPENDECTOMY EXCISION BENIGN LESIONS,SCALP,NECK,HANDS 01/18/2016 mid chest EYE SURGERY PROCEDURE 32 yrs ago pt not sure what was done REVISE MEDIAN N/CARPAL TUNNEL SURG Bilateral 2019 VASECTOMY UNI/BI SPX W/POSTOP SEMEN EXAMS Social History Tobacco Use Smoking status: Never Passive exposure: Never Smokeless tobacco: Never Vaping Use Vaping status: Never Used Substance Use Topics Alcohol use: No Drug use: No FAMILY HISTORY Problem Relation Age of Onset Lipids Mother Prostate Cancer Father Diabetes Father Glaucoma Father Diabetes Maternal Grandmother Diabetes Paternal Grandmother DVT No Family History Allergies: ALLERGIES Allergen Reactions Phentermine Other: See Comments Difficulty urinating Current Meds: atorvastatin (LIPITOR) 40 mg tablet Take 1 tablet by mouth once daily. topiramate (TOPAMAX) 50 mg tablet Take 1 tablet by mouth daily at bedtime. For weight loss lisinopril (ZESTRIL) 20 mg tablet Take 1 tablet by mouth once daily. metFORMIN ER (GLUCOPHAGE XR) 750 mg 24 hr tablet Take 2 tablets with supper. glipiZIDE (GLUCOTROL XL) 10mg 24 hr tablet Take 1 tablet by mouth once daily. With supper allopurinol (ZYLOPRIM) 300 mg tablet Take 1 tablet by mouth once daily. Bee ResilientTOUCH ULTRA2 METER 1 Each by VIA DEVICE route once daily. blood sugar diagnostic test strip Use with blood glucose test 2 times daily, Insulin Dep? No Lancets Use with blood glucose test 2 times daily. Insulin Dep? No alcohol swabs Use with blood glucose test 2 times daily. Insulin Dep? No famotidi (more content not included)... Normal [facility] Virtual Office Visiton 10-24 Virtual Office Visit [facility] [address] [address] OFFICE VISIT Date of Service: 10/24/24 MR#: [id number] Acct: [id number] Patient: ROE INTERIANO Rep #: [id number] : 1975 Provider: VIDA Vela Age/Sex: 49/M Location: [facility] Status: Signed Intake Vital Signs 10/10/24 09:54 Height 5 ft 9 in Weight: 276 lb 4 oz BMI 40.8 BP 120/78 Position Sitting Pulse 81 Pulse Oximetry (%) 98 Oxygen Delivery Method room air Intake Visit Reasons: 2 W FU/ECHO WELD Chief Complaint: WC new, right rib injury Allergies No Known Allergies Allergy (Verified 10/10/24 09:57) COUNTS INCLUDE 234 BEDS AT THE [facility] Medical History (Updated 10/05/24 @ 12:51 by Raji MCPHERSON, VIDA) Contusion of right chest wall Diabetes Deviated nasal septum Nasal valve collapse Nasal turbinate hypertrophy Nasal congestion Surgical History History of appendectomy History of rhinoplasty Family History Father Cancer prostate CVA (cerebral vascular accident) Diabetes Social History (Updated 05/08/20 @ 11:[address] Audie Upton, DO) Smoking Status: Never smoker second hand exposure: No HPI HPI Chief Complaint: WC new, right rib injury Details: Patient was informed that today's visit charges, even if billed to insurance may still be the patient's responsibility to pay. ROE INTERIANO, is a 49 M who presents to the office today for follow-up of chest wall injury. Patient notes since his last evaluation he has been working without restrictions without difficulty is now symptom-free. No other complaints at this time. Exam Details: Details:: Exam was limited due to phone visit with no video. 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 Follow-up with [facility] clinic on an as-needed basis only. Patient states acknowledging understanding all the above. This note was generated with [employer] dictation software. It may contain incorrect words, spelling, and punctuation that were not noted in checking the note before signing. 10/24/24 0937 Date Raji Han Signature: Date (if applicable) CC: Normal [facility] Urgent Care Visit Reporton 0 10-10-2024 Urgent Care Visit Report [facility] [address], [address] [place] [address] OFFICE VISIT Date of Service: 10/10/24 MR#: [id number] Acct: [id number] Name: ROE INTERIANO Rep #: [id number] : 1975 Provider: VIDA Vela Age/Sex: 49/M Location: [facility] Status: Signed Intake Vital Signs 10/05/24 12:14 10/05/24 12:53 10/10/24 09:54 Height 5 ft 9 in 5 ft 9 in 5 ft 9 in Weight: 274 lb 2 oz 276 lb 4 oz BMI 40.4 40.8 BP 130/66 H 120/78 Blood Pressure Location Lt brachial Position Sitting Sitting Respiration 16 Pulse 79 81 Pulse Source NIBP Temp 97.9 F Temp Source Oral Pulse Oximetry (%) 98 98 Oxygen Delivery Method room air room air Intake Visit Reasons: 1 W FU/ECHO WELD Chief Complaint: WC new, right rib injury Accompanied by: Self Is patient in pain?: Yes Pain scale (1-10): 4 Allergies No Known Allergies Allergy (Verified 10/10/24 09:57) Medications ???Medication ???Instructions ???Recorded ???Confirmed ???Type allopurinol 300 mg tablet 300 mg PO DAILY 12/28/18 10/10/24 History atorvastatin 40 mg tablet 40 mg PO QHS 12/28/18 10/10/24 History cholecalciferol (vitamin D3) 25 1,000 unit PO DAILY 12/28/18 10/10/24 History mcg (1,000 unit) tablet cyclobenzaprine 10 mg tablet 10 mg PO PRN PRN Muscle Spasm 12/28/18 10/10/24 History lisinopril 20 mg tablet 20 mg PO QHS 12/28/18 10/10/24 History metformin 500 mg tablet 500 mg PO 4X/DAY 12/28/18 10/10/24 History vitamin B complex 1 tab PO DAILY 12/28/18 10/10/24 History Nurse's Note: [facility] follow up. COUNTS INCLUDE 234 BEDS AT THE [facility] Medical History (Updated 10/05/24 @ 12:51 by Raji MCPHERSON, PA) Contusion of right chest wall Diabetes Deviated nasal septum Nasal valve collapse Nasal turbinate hypertrophy Nasal congestion Surgical History History of appendectomy History of rhinoplasty Family History Father Cancer prostate CVA (cerebral vascular accident) Diabetes Social History (Updated 05/08/20 @ 11:[address] Audie Upton, DO) Smoking Status: Never smoker second hand exposure: No HPI HPI Chief Complaint: WC new, right rib injury Details: ROE INTERIANO, is a 49 M who presents to the office today for f/u status post fall on 10/05/2024 on icy surface therefore landing on right anterior chest wall with localized pain to the same. No complaints of chest pressure or shortness of breath or dyspnea on exertion, though admits deep inspiration does aggravate localized tenderness - though less so compared to last evaluation here. No other body part complaints of including no head or neck complaints. No loiz-ofv-[id number] products taken to assist. No other associated symptoms and no other alleviating/aggravating factors. ROS Const Constitutional: No other (As above) Exam Const General: cooperative, healthy appearing and no acute distress Orientation: alert and awake HENMT Head: normal to inspection Ears: external ears normal Nose: external nose normal and no nasal discharge Neck Neck: normal visual inspection, no meningeal signs and supple Chest Chest palpation inspection: normal inspection of the chest and normal palpation of entire chest wall (Except tender to touch R ant. cw (and still no ecchymosis/swelling to same)) Resp Effort Inspection: normal respiratory effort, able to speak in complete sentences and symmetric chest movement Auscultation: Bilateral: Clear to Auscultation Cardio Palpation: normal PMI Rate: regular rate Rhythm: regular rhythm Heart Sounds: S1 normal, S2 normal, no gallops, no murmurs and no rubs Pulses: radial pulses present GI Inspection: normal to inspection Palpation: soft Skin General: no rashes or lesions noted Neuro General: patient alert and patient awake Cognition: normal cognition Speech: speech normal Extrem General: normal to inspection Psych Appearance: grossly normal Mental Status: mental status grossly normal Mood: congruent mood Affect: normal affect Speech and Movement: speech and movement normal Attitude: cooperative Diagnoses Contusion of right chest wall S20.211A Assessment and Plan Assessment and Plan (1) Contusion of right chest wall: Status: Acute Plan: Continue to return to work without restrictions as noted on today's [employer] 14. Supportive measures including 6 inch Elton wrap to use as swath over chest as dispensed last evaluation, and cough/deep breathing exercises as re-instructed today. Follow-up with the [facility] in approximately 14 days for reassessment and continuation of care, sooner should symptoms only worsen or any other concerns develop; anticipate released without restrictions then Patient states acknowledging unders (more content not included)... Normal [facility] Ribs Adilson Min 4V w/PA Cheston 10-05-2024 Ribs Adilson Min 4V w/PA Chest [facility] [address] [place] [address] Ribs Adilson Min 4V w/PA Chest MR#: [id number] Acct: [id number] Name: ROE INTERIANO Rep #: [id number] : 1975 49 From: Osbaldo canela MD PCP: Dr. Ean Luu, DO Status: REG CLI Study: Ribs Adilson Min 4V w/PA Chest Date of Exam: 10/05 Exam# [id number] Ordering Dr: Raji Alvarez PA :[id number] STUDY: X-RAY - BILATERAL RIBS WITH CHEST REASON FOR EXAM: Male, 49 years old. Fall onto right anterior rib cage TECHNIQUE - RIBS: 6 view(s) of the ribs. TECHNIQUE - CHEST: Single PA view of the chest. COMPARISON: None. FINDINGS - RIBS : Normal visualized ribs without a demonstrated fracture. FINDINGS - CHEST: The lungs are clear and expanded. There is no demonstrated pleural abnormality. Normal size heart. Normal mediastinum and elena. Normal visualized pulmonary arteries. Normal visualized aortic arch and descending thoracic aorta. Normal visualized thoracic spine. Normal visualized ribs, clavicles, and shoulders. There is no demonstrated abnormality of the visualized soft tissue structures of the upper abdomen. RAD/Ribs Adilson Min 4V w/PA Chest IMPRESSION: RIBS: Normal x-ray examination of the bilateral ribs. CHEST: Normal x-ray examination of the chest. Electronically Signed: Osbaldo Montalvo MD at 13:03 EST , CC: Dr. Ean Luu, ; VIDA Vela [employer]itness [employer] Manager: Signed Normal [facility] Urgent Care Visit Reporton 0 10-05-2024 Urgent Care Visit Report [facility] [address], [address] [place] [address] OFFICE VISIT Date of Service: 10/05/24 MR#: [id number] Acct: [id number] Name: ROE INTERIANO Rep #: [id number] : 1975 Provider: VIDA Vela Age/Sex: 49/M Location: [facility] Status: Signed Intake Vital Signs 10/03/19 08:07 10/05/24 12:14 Height 5 ft 8 in 5 ft 9 in Weight: 274 lb 2 oz BMI 40.4 BP 130/66 H Blood Pressure Location Lt brachial Position Sitting Respiration 16 Pulse 79 Pulse Source NIBP Temp 97.9 F Temp Source Oral Pulse Oximetry (%) 98 Oxygen Delivery Method room air Intake Visit Reasons: R SIDE RIB INJURY/ ECHO-WELD (TFP HYACINTH) Chief Complaint: WC new, right rib injury Carbon Setter Required: No Is patient in pain?: Yes Allergies No Known Allergies Allergy (Verified 10/05/24 12:15) Medications ???Medication ???Instructions ???Recorded ???Confirmed ???Type allopurinol 300 mg tablet 300 mg PO DAILY 12/28/18 05/08/20 History atorvastatin 40 mg tablet 40 mg PO QHS 12/28/18 10/05/24 History cholecalciferol (vitamin D3) 25 1,000 unit PO DAILY 12/28/18 05/08/20 History mcg (1,000 unit) tablet cyclobenzaprine 10 mg tablet 10 mg PO PRN PRN Muscle Spasm 12/28/18 05/08/20 History lisinopril 20 mg tablet 20 mg PO QHS 12/28/18 05/08/20 History metformin 500 mg tablet 500 mg PO 4X/DAY 12/28/18 10/05/24 History vitamin B complex 1 tab PO DAILY 12/28/18 05/08/20 History Have you fallen in the past year?: Yes COUNTS INCLUDE 234 BEDS AT THE [facility] Medical History (Updated 10/05/24 @ 12:51 by Raji Alvarez PA, PA) Contusion of right chest wall Diabetes Deviated nasal septum Nasal valve collapse Nasal turbinate hypertrophy Nasal congestion Surgical History History of appendectomy History of rhinoplasty Family History Father Cancer prostate CVA (cerebral vascular accident) Diabetes Social History (Updated 05/08/20 @ 11:[address] Audie Upton, DO) Smoking Status: Never smoker second hand exposure: No HPI HPI Chief Complaint: WC new, right rib injury Details: ROE INTERIANO, is a 49 M who presents to the office today for initial evaluation status post fall on icy surface therefore landing on right anterior chest wall with localized pain to the same. No complaints of chest pressure or shortness of breath or dyspnea on exertion, though admits deep inspiration does aggravate localized tenderness. No other body part complaints of including no head or neck complaints. No wnad-pif-[id number] products taken to assist. No other associated symptoms and no other alleviating/aggravating factors. ROS Const Constitutional: No other (As above) Exam Const General: cooperative, healthy appearing and no acute distress Orientation: alert and awake [facility] Head: normal to inspection Ears: external ears normal Nose: external nose normal and no nasal discharge Neck Neck: normal visual inspection, no meningeal signs and supple Chest Chest palpation inspection: normal inspection of the chest and normal palpation of entire chest wall (Except tender to touch R ant. cw (no ecchymosis/swelling to same)) Resp Effort Inspection: normal respiratory effort, able to speak in complete sentences and symmetric chest movement Auscultation: Bilateral: Clear to Auscultation Cardio Palpation: normal PMI Rate: regular rate Rhythm: regular rhythm Heart Sounds: S1 normal, S2 normal, no gallops, no murmurs and no rubs Pulses: radial pulses present GI Inspection: normal to inspection Palpation: soft Skin General: no rashes or lesions noted Neuro General: patient alert and patient awake Cognition: normal cognition Speech: speech normal Extrem General: normal to inspection Psych Appearance: grossly normal Mental Status: mental status grossly normal Mood: congruent mood Affect: normal affect Speech and Movement: speech and movement normal Attitude: cooperative Coding Level of Care Code Off vis,new,level 4 Diagnoses Contusion of right chest wall S20.211A Assessment and Plan Assessment and Plan (1) Contusion of right chest wall: Status: Acute Plan: Right rib and PA chest radiographs revealed no acute osseous or cardiopulmonary pathology per my review, pending radiologist interpretation time patient discharge. Return to work today sitting duties only then returned to work without restrictions effective 10/06/2024 as noted on today's [employer] 14. Supportive measures including 6 inch Elton wrap to use as swath over chest, and cough/deep breathing exercises as instructed today. Follow-up with the [facility] in approximately 5 days for reassessment and continuation of care, sooner should symptoms only w (more content not included)... [facility] ([facility] ) ROE INTERIANO ([id number]) 1975 M Date Time Provider Department 08/30/24 3:00 PM EAN LUU [facility] During your visit today, we recorded the following information about you: Temperature Pulse Respiration Blood pressure 97.7 degrees 64/minute 16/minute 130/80 Weight 122.9 kg Ean Luu, 09/01/2024 12:33 PM Signed Patient presents with: F/U 3 Month HPI: Roe Boykin Jaydon is a 49 year old male who presents to the office today for review of health conditions. Concerns today: Mood, has stressors with his not wanting to work and financial stressors as well as stressors with his brother and daughter Alia. No SI or HI. 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 Mr. Interiano has past history of diabetes. Since our last visit he denies excessive thirst or increased frequency of urination, chest pain or dyspnea , new or unusual visual symptoms, and low sugar/hypoglycemic reactions. Depression- no. Follows a diabetic diet some of the time. He is compliant with medication(s) and is tolerating med(s) without any side effects. He reports checking his glucose on a once a day schedule with sugars in the <150 range. Patient's last HgA1C was Hemoglobin A1C (%) Date Value 05/06/2024 6.9 01/15/2024 10.9 09/02/2021 10.3 06/21/2021 9.6 Hemoglobin A1C (POCT) (%) Date Value 10/01/2022 9.8 ) Last Ophthalmology exam was within the past 6 months Mr. Interiano reports history of hyperlipidemia. Current therapy includes atorvastatin (Lipitor) 40 mg. Denies side effects of muscle weakness or achiness. His most recent lipid panels are reviewed. Cholesterol, Total (mg/dL) Date Value 05/06/2024 114 06/21/2021 144 HDL Cholesterol (mg/dL) Date Value 05/06/2024 28 06/21/2021 30 LDL Cholesterol (mg/dL) Date Value 05/06/2024 37 06/21/2021 Unable to calculate due to increased Triglycerides. See LDL-Chol, Direct. LDL Cholesterol, Nonfasting (no units) Date Value 01/15/2024 Comment: Unable to calculate due to increased Triglycerides. A Direct LDL Cholesterol measurement will not be performed. If clinically indicated, a fasting Basic Lipid Panel (LIPB) may be ordered. Triglyceride (mg/dL) Date Value 05/06/2024 247 06/21/2021 539 Mr. Interiano indicates a history of hypertension and states that he is feeling well and denies any symptoms referable to elevated blood pressure. Specifically denies headache, chest pain, palpitations, dyspnea, and peripheral edema. Patient denies any side effects of his medication(s) and is compliant with their regimen. Last 3 Encounter BP Readings: Date: BP: 08/30/2024 130/80 05/17/2024 140/82 03/25/2024 132/72 He watches his diet for sodium, low fat and low cholesterol some of the time. He does not check BP's generally. Roe gets minimal exercise. 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 Sebaceous cyst 01/25/2016 Sleep apnea Did not tolerate CPAP PAST SURGICAL HISTORY Procedure Laterality Date APPENDECTOMY EXCISION BENIGN LESIONS,SCALP,NECK,HANDS 01/18/2016 mid chest EYE SURGERY PROCEDURE 32 yrs ago pt not sure what was done REVISE MEDIAN N/CARPAL TUNNEL SURG Bilateral 2019 VASECTOMY UNI/BI SPX W/POSTOP SEMEN EXAMS Social History Tobacco Use Smoking status: Never Passive exposure: Never Smokeless tobacco: Never Vaping Use Vaping status: Never Used Substance Use Topics Alcohol use: No Drug use: No FAMILY HISTORY Problem Relation Age of Onset Lipids Mother Prostate Cancer Father Diabetes Father Glaucoma Father Diabetes Maternal Grandmother Diabetes Paternal Grandmother DVT No Family History Allergies: ALLERGIES Allergen Reactions Phentermine Other: See Comments Difficulty urinating Current Meds: metFORMIN ER (GLUCOPHAGE XR) 750 mg 24 hr tablet Take 2 tablets with supper. atorvastatin (LIPITOR) 40 mg tablet Take 1 tablet by mouth once daily. glipiZIDE (GLUCOTROL XL) 10mg 24 hr tablet Take 1 tablet by mouth once daily. With supper topiramate (TOPAMAX) 50 mg tablet Take 1 tablet by mouth daily at bedtime. For weight loss sildenafil (VIAGRA) 100 mg tablet Take 1 tablet by mouth once daily as needed. Take 30-60 minutes before sexual activity. allopurinol (ZYLOPRIM) 300 mg tablet Take 1 tablet by mouth once daily. ONETOUCH ULTRA2 (more content not included)... Normal [facility] CNOVon 05-17-2024 CNOV Office Visit (FAMPWS ) ROE INTERIANO ([id number]) 1975 M Date Time Provider Department 05/17/24 3:20 PM EAN LUUPMYRNA During your visit today, we recorded the following information about you: Temperature Pulse Respiration Blood pressure 97.8 degrees 80/minute 20/minute 140/82 Weight 122 kg Jus Ean Pritchard, DO 05/19/2024 12:33 PM Signed Patient presents with: F/U 3 Month HPI: Roe Interiano is a 49 year old male who presents to the office today for review of health conditions. Concerns today: Sore throat started Thursday, significant last night, sinus pressure and congestion. No cough, no fevers or chills. No ear pain Ptosis upper left eyelid, hasn't made follow up appt for surgical consideration yet with Cras ERECTILE DYSFUNCTION, has been tried on multple different medications without a lot of benefit. Was seen by Student Counsellor for opinion for testosterone replacement, not interested in surgical options at this time Mr. Interiano has past history of diabetes. Since our last visit he denies excessive thirst or increased frequency of urination, chest pain or dyspnea , new or unusual visual symptoms, and low sugar/hypoglycemic reactions. Depression- no. Follows a diabetic diet some of the time. He is compliant with medication(s) and is tolerating med(s) without any side effects. He reports checking his glucose on a once a day schedule with sugars in the <150 range. Patient's last HgA1C was Hemoglobin A1C (%) Date Value 05/06/2024 6.9 01/15/2024 10.9 09/02/2021 10.3 06/21/2021 9.6 Hemoglobin A1C (POCT) (%) Date Value 10/01/2022 9.8 ) Last Ophthalmology exam was within the past 12 months Mr. Interiano reports history of hyperlipidemia. Current therapy includes atorvastatin (Lipitor) 40 mg. Denies side effects of muscle weakness or achiness. His most recent lipid panels are reviewed. Cholesterol, Total (mg/dL) Date Value 05/06/2024 114 06/21/2021 144 HDL Cholesterol (mg/dL) Date Value 05/06/2024 28 06/21/2021 30 LDL Cholesterol (mg/dL) Date Value 05/06/2024 37 06/21/2021 Unable to calculate due to increased Triglycerides. See LDL-Chol, Direct. LDL Cholesterol, Nonfasting (no units) Date Value 01/15/2024 Comment: Unable to calculate due to increased Triglycerides. A Direct LDL Cholesterol measurement will not be performed. If clinically indicated, a fasting Basic Lipid Panel (LIPB) may be ordered. Triglyceride (mg/dL) Date Value 05/06/2024 247 06/21/2021 539 Mr. Interiano indicates a history of hypertension and states that he is feeling well and denies any symptoms referable to elevated blood pressure. Specifically denies headache, chest pain, palpitations, dyspnea, and peripheral edema. Patient denies any side effects of his medication(s) and is compliant with their regimen. Last 3 Encounter BP Readings: Date: BP: 05/17/2024 140/82 03/25/2024 132/72 02/23/2024 119/71 He watches his diet for sodium, low fat and low cholesterol some of the time. He does not check BP's generally. Roe likes to exercise by walking. 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 01/25/2016: Sebaceous cyst No date: Sleep apnea Comment: Did not tolerate CPAP PAST SURGICAL HISTORY No date: APPENDECTOMY 01/18/2016: EXCISION BENIGN LESIONS,SCALP,NECK,HANDS Comment: mid chest 32 yrs ago: EYE SURGERY PROCEDURE Comment: pt not sure what was done 2020: REVISE MEDIAN N/CARPAL TUNNEL SURG; Bilateral No date: VASECTOMY UNI/BI SPX W/POSTOP SEMEN EXAMS Social History Tobacco Use Smoking status: Never Passive exposure: Never Smokeless tobacco: Never Vaping Use Vaping status: Never Used Substance Use Topics Alcohol use: No Drug use: No FAMILY HISTORY Problem Relation Age of Onset Lipids Mother Prostate Cancer Father Diabetes Father Glaucoma Father Diabetes Maternal Grandmother Diabetes Paternal Grandmother DVT No Family History Allergies: ALLERGIES Allergen Reactions Phentermine Other: See Comments Difficulty urinating Current Meds: glipiZIDE (GLUCOTROL XL) 10mg 24 hr tablet Take 1 tablet by mouth once daily. With supper amoxicillin-clavulanate potassium (AUGMENTIN) 875-125 mg per tablet Take 1 tablet by mouth two times a day for 10 days. topiramate (TOPAMAX) 50 mg tablet Take 1 tablet by mouth daily at bedtime. For weight loss sildenafil (VIAGRA) 100 mg tablet Take 1 tablet by mouth once daily as needed. Ruslan (more content not included)... Normal [facility] ALBUMIN/CREATININE RATIO, UR INEon 05-06-2024 Albumin DL <= 20 mg/L (U) [Mass/Vol] 14.8 mg/L Normal [facility] Comment on above: Order Comment: Speci men Type: URINE SPECIMENOrdering Facility: [facility] Address: [address] [place] [address] Performed By: #### U ACR ####[facility] LABCLIA [id number] [place] [address] [place] Albumin/Creatinine (U) [Mass ratio] 15 mg/g Normal <30 [facility] Comment on above: Order Comment: Speci men Type: URINE SPECIMENOrdering Facility: [facility] Address: [address] [place] [address] Result Comment: Adul t Male and Female Nephrotic Criteria: <30 mg/g is considered normal to mildly increased 30-300 mg/g is considered moderately increased >300 mg/g is considered severely increased KDIGO. (2013). KDIGO 2012 Clinical Practice Guideline for the Evaluation and Management of Chronic Kidney Disease. Official Journal of the International Society of Nephrology, 3(1), 1-150. Performed By: #### U ACR ####[facility] LABCLIA [id number] [place] [address] [place] Creatinine (U) [Mass/Vol] 100.3 mg/dL Normal 20.0-300.0 [facility] Comment on above: Order Comment: Speci men Type: URINE SPECIMENOrdering Facility: [facility] Address: [address] [place] [address] Performed By: #### U ACR ####[facility] LABCLIA [id number] [place] [address] [place] Comprehensive metabolic 2000 panelon 05-06-2024 Albumin [Mass/Vol] 4.2 g/dL Normal 3.9-4.9 [facility] Comment on above: Order Comment: Speci men Type: BLOOD SPECIMENOrdering Facility: [facility] Address: [address] [place] [address] Performed By: #### 2 4323-8 ####[facility] BETSE[facility] MILLTOWNCLIA [id number] [place] [address] [place] ALP [Catalytic activity/Vol] 73 U/L Normal 38-113 [facility] Comment on above: Order Comment: Speci men Type: BLOOD SPECIMENOrdering Facility: [facility] Address: [address] [place] [address] Performed By: #### 2 4323-8 ####[facility] MILLTOWNCLIA [id number] [place] [address] [place] ALT [Catalytic activity/Vol] 20 U/L Normal 10-54 [facility] Comment on above: Order Comment: Speci men Type: BLOOD SPECIMENOrdering Facility: [facility] Address: [address] [place] [address] Performed By: #### 2 4323-8 ####[facility] BETSE[facility] MILLTOWNCLIA [id number] [place] [address] [place] Anion gap [Moles/Vol] 12 mmol/L Normal 8-15 [facility] Comment on above: Order Comment: Speci men Type: BLOOD SPECIMENOrdering Facility: [facility] Address: [address] [place] [address] Performed By: #### 2 4323-8 ####[facility] BETSE[facility] MILLTOWNCLIA [id number] [place] [address] [place] AST [Catalytic activity/Vol] 16 U/L Normal 14-40 [facility] Comment on above: Order Comment: Speci men Type: BLOOD SPECIMENOrdering Facility: [facility] Address: [address] [place] [address] Performed By: #### 2 4323-8 ####[facility] [id number] [place] [address] [place] Bilirubin [Mass/Vol] 0.9 mg/dL Normal 0.2-1.3 [facility] Comment on above: Order Comment: Speci men Type: BLOOD SPECIMENOrdering Facility: [facility] Address: [address] [place] [address] Performed By: #### 2 4323-8 ####[facility] [id number] [place] [address] [place] Calcium [Mass/Vol] 9.8 mg/dL Normal 8.5-10.2 [facility] Comment on above: Order Comment: Speci men Type: BLOOD SPECIMENOrdering Facility: [facility] Address: [address] [place] [address] Performed By: #### 2 4323-8 ####[facility] [id number] [place] [address] [place] Chloride [Moles/Vol] 106 mmol/L Normal 98-107 [facility] Comment on above: Order Comment: Speci men Type: BLOOD SPECIMENOrdering Facility: [facility] Address: [address] [place] [address] Performed By: #### 2 4323-8 ####[facility] [id number] [place] [address] [place] CO2 [Moles/Vol] 21 mmol/L Low 22-30 [facility] Comment on above: Order Comment: Speci men Type: BLOOD SPECIMENOrdering Facility: [facility] Address: [address] [place] [address] Performed By: #### 2 4323-8 ####[facility] [id number] [place] [address] [place] Creatinine [Mass/Vol] 0.65 mg/dL Low 0.73-1.22 [facility] Comment on above: Order Comment: Speci men Type: BLOOD SPECIMENOrdering Facility: [facility] Address: [address] [place] [address] Performed By: #### 2 4323-8 ####[facility] [id number] [place] [address] [place] Creatinine and Glomerular filtration rate.predicted panel (S/P/Bld) 116 mL/min/1.73m??? Normal >=60 [facility] Comment on above: Order Comment: Speci men Type: BLOOD SPECIMENOrdering Facility: [facility] Address: [address] [place] [address] Result Comment: Celeste mated Glomerular Filtration Rate (eGFR) is calculated using the 2020 CKD-EPI creatinine equation. This equation utilizes serum creatinine, sex, and age as parameters. The creatinine assay has traceable calibration to isotope dilution-mass spectrometry. Refer to KDIGO guidelines for clinical interpretation. In patients with unstable renal function, e.g. those with acute kidney injury, the eGFR may not accurately reflect actual GFR. Performed By: #### 2 4323-8 ####[facility] [id number] [place] [address] [place] Glucose [Mass/Vol] 137 mg/dL High 74-99 [facility] Comment on above: Order Comment: Speci men Type: BLOOD SPECIMENOrdering Facility: [facility] Address: [address] [place] [address] Result Comment: The [place] Diabetes Association (ADA) provides guidance for cutoff values for fasting glucose and random glucose. The ADA defines fasting as no caloric intake for at least 8 hours. Fasting plasma glucose results between 100 to 125 mg/dL indicate increased risk for diabetes (prediabetes). Fasting plasma glucose results greater than or equal to 126 mg/dL meet the criteria for diagnosis of diabetes. In the absence of unequivocal hyperglycemia, results should be confirmed by repeat testing. In a patient with classic symptoms of hyperglycemia or hyperglycemic crisis, random plasma glucose results greater than or equal to 200 mg/dL meet the criteria for diagnosis of diabetes. Reference: Standards of Medical Care in Diabetes 2016, [place] Diabetes Association. Diabetes Care. 2016.39(Suppl 1). Performed By: #### 2 4323-8 ####[facility] MILLWNELIA [id number] [place] [address] [place] Potassium [Moles/Vol] 4.3 mmol/L Normal 3.7-5.1 [facility] Comment on above: Order Comment: Speci men Type: BLOOD SPECIMENOrdering Facility: [facility] Address: [address] [place] [address] Performed By: #### 2 4323-8 ####[facility] [id number] [place] [address] [place] Protein [Mass/Vol] 6.7 g/dL Normal 6.3-8.0 [facility] Comment on above: Order Comment: Speci men Type: BLOOD SPECIMENOrdering Facility: [facility] Address: [address] [place] [address] Performed By: #### 2 4323-8 ####[facility] [id number] [place] [address] [place] Sodium [Moles/Vol] 139 mmol/L Normal 136-144 [facility] Comment on above: Order Comment: Speci men Type: BLOOD SPECIMENOrdering Facility: [facility] Address: [address] [place] [address] Performed By: #### 2 4323-8 ####[facility] [id number] [place] [address] [place] Urea nitrogen [Mass/Vol] 14 mg/dL Normal 9-24 [facility] Comment on above: Order Comment: Rachel mejia Type: BLOOD SPECIMENOrdering Facility: [facility] Address: [address] [place] [address] Performed By: #### 2 4323-8 ####[facility] [id number] [place] [address] [place] HbA1c (Bld)on 05-06-2024 Average glucose Estimated from glycated hemoglobin (Bld) [Mass/Vol] 151 mg/dL Normal [facility] Comment on above: Order Comment: Rachel mejia Type: BLOOD SPECIMENOrdering Facility: [facility] Address: [address] [place] [address] Result Comment: eAG: (Estimated average glucose) is a calculated value from HgbA1c and is passenger representative of the average blood glucose level in the last 2-3 month period. Performed By: #### 5 5454-3 ####[facility] LABCLIA [id number] [place] [address] [place] HbA1c (Bld) [Mass fraction] 6.9 % High 4.3-5.6 [facility] Comment on above: Order Comment: Rachel mejia Type: BLOOD SPECIMENOrdering Facility: [facility] Address: [address] [place] [address] Result Comment: [place] Diabetes Association guidelines indicate that patients with HgbA1c in the range 5.7-6.4% are at increased risk for development of diabetes, and intervention by lifestyle modification may be beneficial. HgbA1c greater or equal to 6.5% is considered diagnostic of diabetes. Performed By: #### 5 5454-3 ####[facility] LABCLIA [id number] [place] [id number] [place] Lipid 1996 panelon 4 Cholesterol [Mass/Vol] 114 mg/dL Normal <200 [facility] Comment on above: Order Comment: Speci men Type: BLOOD SPECIMENOrdering Facility: [facility] Address: [address] [place] [address] Result Comment: <200 mg/dL, Desirable 200-239 mg/dL, Borderline high >239 mg/dL, High Performed By: #### 3 016-3 ####[facility] LABCLIA [id number] [place] [address] [place]#### 84374-3 ####[facility] LABCLIA [id number] [address] [id number] [place] [address] [place] Cholesterol in HDL [Mass/Vol] 28 mg/dL Low >39 [facility] Comment on above: Order Comment: Speci men Type: BLOOD SPECIMENOrdering Facility: [facility] Address: [address] [place] [address] Result Comment: 40-5 9 mg/dL, Acceptable >59 mg/dL, High: Negative risk factor for coronary heart disease <40 mg/dL, Low: Positive risk factor for coronary heart disease Performed By: #### 3 016-3 ####[facility] LABCLIA [id number] [place] [address] [place]#### 13247-4 ####[facility] LABCLIA [id number] [address] STATES [facility] [id number] [place] [address] [place] Cholesterol in LDL [Mass/Vol] 37 mg/dL Normal <100 [facility] Comment on above: Order Comment: Speci men Type: BLOOD SPECIMENOrdering Facility: [facility] Address: [address] [place] [address] Result Comment: <100 mg/dL, Optimal 100-129 mg/dL, Near optimal/above optimal 130-159 mg/dL, Borderline high 160-189 mg/dL, High >189 mg/dL, Very high Secondary prevention optimal LDL Cholesterol levels are recommended to be < 70 mg/dL Performed By: #### 3 016-3 ####[facility] LABCLIA [id number] [place] [address] [place]#### 05567-2 ####[facility] LABIA [id number] [address] [id number] [place] [address] [place] Cholesterol in LDL/Cholesterol in HDL [Mass ratio] 1.32 {ratio} Normal <2.54 [facility] Comment on above: Order Comment: Speci men Type: BLOOD SPECIMENOrdering Facility: [facility] Address: [address] [place] [address] Result Comment: Darcy guadarrama: 1. National Cholesterol Education Program ATP III Guideline At-A-Glance Quick Desk Reference: National Heart, Lung, and Blood El Portal. National Institutes of Health. 2001: NIH Publication No. 01-3305. 2. An International Atherosclerosis Society position paper: global recommendations for the management of dyslipidemia: executive summary, Atherosclerosis. 2014: 232(2):410-413. Performed By: #### 3 016-3 ####[facility] LABIA [id number] [address] [place]#### 14179-0 ####[facility] LABIA [id number] [address] [id number] [place] [address] [place] Cholesterol in VLDL [Mass/Vol] 49 mg/dL High <30 [facility] Comment on above: Order Comment: Speci men Type: BLOOD SPECIMENOrdering Facility: [facility] Address: [address] [place] [address] Performed By: #### 3 016-3 ####[facility] LABCLIA [id number] [place] [address] [place]#### 84848-4 ####[facility] LABCLIA [id number] [address] OF [facility] [id number] [place] [address] [place] Cholesterol non HDL [Mass/Vol] 86 mg/dL Normal <130 [facility] Comment on above: Order Comment: Speci men Type: BLOOD SPECIMENOrdering Facility: [facility] Address: [address] [place] [address] Result Comment: <130 mg/dL, Optimal 130-159 mg/dL, Near optimal/above optimal 160-189 mg/dL, Borderline high 190-219 mg/dL, High >219 mg/dL, Very high Secondary prevention optimal non HDL Cholesterol levels are recommended to be <100 mg/dL Performed By: #### 3 016-3 ####[facility] LABCLIA [id number] [place] [address] [place]#### 03923-5 ####[facility] LABCLIA [id number] [address] STATES OF [facility] [id number] [place] [address] [place] Cholesterol.total/ Cholesterol in HDL [Mass ratio] 4.07 {ratio} Normal <5.10 [facility] Comment on above: Order Comment: Speci men Type: BLOOD SPECIMENOrdering Facility: [facility] Address: [address] [place] [address] Performed By: #### 3 016-3 ####[facility] LABCLIA [id number] [place] [address] [place]#### 47795-3 ####[facility] LABCLIA [id number] [address] [id number] [place] [address] [place] FASTING TIME 12 hrs Normal [facility] Comment on above: Order Comment: Speci men Type: BLOOD SPECIMENOrdering Facility: [facility] Address: [address] [place] [address] Performed By: #### 3 016-3 ####[facility] LABCLIA [id number] [place] [address] [place]#### 94132-3 ####[facility] LABCLIA [id number] [address] [id number] [place] [address] [place] Triglyceride [Mass/Vol] 247 mg/dL High <150 [facility] Comment on above: Order Comment: Speci men Type: BLOOD SPECIMENOrdering Facility: [facility] Address: [address] [place] [address] Result Comment: <150 mg/dL, Normal 150-199 mg/dL, Borderline high 200-499 mg/dL, High >499 mg/dL, Very high Performed By: #### 3 016-3 ####[facility] LABCLIA [id number] [place] [address] [place]#### 57430-1 ####[facility] LABCLIA [id number] [address] [id number] [place] [address] [place] TSH SerPl-aCncon 05-06-2024 TSH Qn 1.620 m[IU]/L Normal 0.270-4.200 [facility] Comment on above: Order Comment: Speci men Type: BLOOD SPECIMENOrdering Facility: [facility] Address: [address] [place] [address] Performed By: #### 3 016-3 ####[facility] LABCLIA [id number] [address]#### 24445-7 ####[facility] LABCLIA [id number] [address] STATES OF [facility] [id number] [address] [place] 05-02-2024 [facility] ROE INTERIANO ([id number]) 1975 M Date Time Provider Department 05/02/24 [facility] During your visit today, we recorded the following information about you: [place] RN 05/02/2024 1:28 PM Signed Patient calling to ask if he needs any labs prior to 3 month follow up appointment on 05/17? Advised PCP out of office this week. He says he is okay to wait for response. INO Dumont Bernadette, PA-C 05/02/2024 2:56 PM Addendum Fasting labs ordered. Tj Del Angel PA-C 05/02/2024 Philomena Scott RN 05/02/2024 3:03 PM Signed Called and left a voicemail for the Patient to call back and ask for a nurse to receive the providers message. INO Pride Krystle, RN 05/02/2024 3:24 PM Signed Patient returns call and notified that fasting lab orders have been placed. Patient will have completed prior to appointment 05/17. Jaci Silva RN Allergies As of Date: 05/02/2024 Noted Allergy Reaction PHENTERMINE 03/25/2024 14 - Other: See Comments Comments: Difficulty urinating Date Reviewed: 03/25/2024 Reviewed by: Ana Villalta RN - Fully Assessed Reason for Visit: Patient Question [1477] Primary Visit Diagnosis:Hyperlipidemia with target LDL less than 100 [E78.5] Other Visit Diagnosis:Diabetes mellitus type 2 with ketoacidosis, uncontrolled (HCC) [E11.10] Order(s):HEMOGLOBIN A1C [[id number]] Order #: [id number] FUTURE LIPID PANEL BASIC [SQLIPB] Order #: [id number] FUTURE COMPREHENSIVE METABOLIC PANEL [SQCMP] Order #: [id number] FUTURE ALBUMIN/CREATININE RATIO, URINE [SQUACR] Order #: [id number] FUTURE THYROID STIMULATING HORMONE [SQTSH] Order #: [id number] FUTURE Prescriptions as of 05/02/2024 - allopurinol (ZYLOPRIM) 300 mg tablet Take 1 tablet by mouth once daily. - ONETOUCH ULTRA2 METER 1 Each by VIA DEVICE route once daily. - metFORMIN ER (GLUCOPHAGE XR) 750 mg 24 hr tablet Take 2 tablets with supper. - blood sugar diagnostic test strip Use with blood glucose test 2 times daily, Insulin Dep? No - Lancets Use with blood glucose test 2 times daily. Insulin Dep? No - alcohol swabs Use with blood glucose test 2 times daily. Insulin Dep? No - lisinopril (ZESTRIL) 20 mg tablet Take 1 tablet by mouth once daily. - atorvastatin (LIPITOR) 40 mg tablet Take 1 tablet by mouth once daily. - mupirocin (BACTROBAN) 2 % ointment Apply to affected area two times a day as needed (skin infection). - glipiZIDE (GLUCOTROL XL) 10mg 24 hr tablet Take 1 tablet by mouth once daily. With supper - CPAP/BIPAP/OTHER Lower Settings to fixed pressure IPAP 12, EPAP min 6, PS 6 cm H2O, suitable mask per pt preference, chin strap, head gear, humidity, tubing, lifetime supplies. G47.33 MIKKI - CPAP/BIPAP/OTHER Type .CPAPSettings into a note to see current settings/supplies/DME information. - diclofenac (VOLTAREN ARTHRITIS PAIN) 1 % topical gel Apply 2 g to affected area twice daily as needed. On left shoulder or 5th finger with joint pain - carbamide peroxide (DEBROX) 6.5 % otic solution Use 5 Drops in both ears twice daily. - famotidine (PEPCID) 40 mg tablet Take 1 tablet by mouth at bedtime as needed. For acid reflux - vitamin b complex (B-COMPLEX) tab Take 1 tablet by mouth once daily. - Cholecalciferol, Vitamin D3, 125 mcg (5,000 unit) cap Take 1 capsule by mouth once daily. - tiZANidine (ZANAFLEX) 2 mg tablet Take 1-2 tablets by mouth at bedtime as needed. Muscle spasm, pain - amitriptyline (ELAVIL) 25 mg tablet Take 1-2 tablets by mouth daily at bedtime. For insomnia - Tadalafil (CIALIS) 5 mg tablet Take 1 tablet by mouth as needed (sexual dysfunction). - sodium chloride-aloe vera (AYR SALINE) topical nasal gel 1 application by INTRANASAL route at bedtime as needed (nasal dryness). Meds Comments as of 04/10/2017: Problem List As Of Date 05/02/2024 Noted Resolved MORBID OBESITY [E66.01] 10/07/2008 Dysmetabolic syndrome X [E88.810] 10/10/2008 11/27/2016 Gout [M10.9] 12/19/2009 11/27/2016 Anxiety [F41.9] 12/19/2009 Hypertension [I10] 12/29/2010 Hyperlipidemia with target LDL less than 100 [E*12/29/2010 Cutaneous abscess of chest wall [L02.213] 09/17/2015 11/27/2016 Infected sebaceous cyst [L72.3, L08.9] 01/25/2016 03/07/2024 Skin tag [L91.8] 01/25/2016 11/27/2016 Diabetes mellitus type 2, uncontrolled, without*02/07/2016 Gout [M10.9] 12/19/2009 Fatigue [R53.83] 02/19/2018 Obesity, Class III, BMI 40-49.9 (morbid obesity*02/19/2018 Acute bursitis of right shoulder [M75.51] 02/19/2018 Essential hypertension [I10] 02/16/2019 Uncontrolled type 2 diabetes mellitus without c*02/16/2019 MIKKI (obstructive sleep apnea) [G47.33] 03/15/2019 ED (erectile dysfunction) of organic origin [N5*08/29/2019 Diabetes mellitus type 2 with ketoacidosis, unc*08/29/2019 Uncontrolled type 2 diabetes m (more content not included)... Normal [facility] CNOVon 03-25-2024 CNOV Office Visit (ENWSTR ) ROE INTERIANO Lucretia ([id number]) 1975 M Date Time Provider Department 03/25/24 1:00 PM CATRINA LOFTON ENWSTR During your visit today, we recorded the following information about you: Pulse Respiration Blood pressure Weight 68/minute 20/minute 132/72 122 kg Height 1.727 m Catrina Lofton MD 03/28/2024 8:52 PM Signed [facility] Initial Clinic Visit Note Referred by: Ean Luu DO Chief complaint: Low testosterone HPI: Mr. Interiano is a 49 year old male here today at the request of his PCP for evaluation, management, and treatment of hypogonadism. 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 Anosmia:Normal Medications like KTZ, opioids,chemotherapy: No No use of anabolic steroids, estrogen, prolonged steroid use No antiepileptic use Alcohol:None Mumps/Orchitis in childhood.None No pituitary infections, surgeries, radiations, no testicular infections, radiation or surgery No fractures Losing weight by exercising and diet- could not quantity Exercise- walking about 1 to 1.5 hours every other day Exercise tolerance: no change Risk factors for Complications : History or Family history of Prostate Cancer : yes, father Race : no History of Breast Cancer : no History of MIKKI or suggestive of MIKKI: yes for several years, not using CPAP as he cannot sleep with it 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 metFORMIN ER (GLUCOPHAGE XR) 750 mg 24 hr tablet Take 2 tablets with supper. blood sugar diagnostic test strip Use with blood glucose test 2 times daily, Insulin Dep? No Lancets Use with blood glucose test 2 times daily. Insulin Dep? No alcohol swabs Use with blood glucose test 2 times daily. Insulin Dep? No lisinopril (ZESTRIL) 20 mg tablet Take 1 tablet by mouth once daily. atorvastatin (LIPITOR) 40 mg tablet Take 1 tablet by mouth once daily. glipiZIDE (GLUCOTROL XL) 10mg 24 hr tablet Take 1 tablet by mouth once daily. With supper allopurinol (ZYLOPRIM) 300 mg tablet Take 1 tablet by mouth once daily. carbamide peroxide (DEBROX) 6.5 % otic solution Use 5 Drops in both ears twice daily. (Patient taking differently: Use 5 Drops in both ears as needed (impacted cerumen).) famotidine (PEPCID) 40 mg tablet Take 1 tablet by mouth at bedtime as needed. For acid reflux sodium chloride-aloe vera (AYR SALINE) topical nasal gel 1 application by INTRANASAL route at bedtime as needed (nasal dryness). mupirocin (BACTROBAN) 2 % ointment Apply to affected area two times a day as needed (skin infection). (Patient not taking: Reported on 02/10/2024) CPAP/BIPAP/OTHER Lower Settings to fixed pressure IPAP 12, EPAP min 6, PS 6 cm H2O, suitable mask per pt preference, chin strap, head gear, humidity, tubing, lifetime supplies. G47.33 MIKKI (Patient not taking: Reported on 01/15/2024) CPAP/BIPAP/OTHER Type .CPAPSettings into a note to see current settings/supplies/DME information. (Patient not taking: Reported on 01/15/2024) diclofenac (VOLTAREN ARTHRITIS PAIN) 1 % topical gel Apply 2 g to affected area twice daily as needed. On left shoulder or 5th finger with joint pain (Patient not taking: Reported on 01/15/2024) vitamin b complex (B-COMPLEX) tab Take 1 tablet by mouth once daily. (Patient not taking: Reported on 03/25/2024) Cholecalciferol, Vitamin D3, 125 mcg (5,000 unit) cap Take 1 capsule by mouth once da (more content not included)... Normal [facility] 03-25-2024 [facility] Telephone (JONATHONWS) ROE INTERIANO ([id number]) 1975 M Date Time Provider Department 03/25/24 EAN LUU [facility] [place] During your visit today, we recorded the following information about you: Mag Chambers RN 03/25/2024 1:48 PM Signed Patient reports he saw the dewer, and was informed his testosterone numbers are fine and he doesn't need treatment. Reports he is feeling very frustrated right now. Reports he is having energy problems, sexual problems and doesn't know what to do now. Reports he is working on weight. Please advise patient. Jenn Sotelo APRN.ONDINA 03/25/2024 2:07 PM Signed Would recommend focusing on weight loss until follow-up appointment with Dr. Luu in April to further discuss. Thank you, Jenn Sotelo APRN.Lisa Richardson MA 03/25/2024 2:56 PM Signed Pt informed Lisa Valles MA Allergies As of Date: 03/25/2024 Noted Allergy Reaction PHENTERMINE 03/25/2024 14 - Other: See Comments Comments: Difficulty urinating Date Reviewed: 03/25/2024 Reviewed by: Ana Villalta RN - Fully Assessed Reason for Visit: Patient Update [1234] Prescriptions as of 03/25/2024 - MetacafeUCH ULTRA2 METER 1 Each by VIA DEVICE route once daily. - metFORMIN ER (GLUCOPHAGE XR) 750 mg 24 hr tablet Take 2 tablets with supper. - blood sugar diagnostic test strip Use with blood glucose test 2 times daily, Insulin Dep? No - Lancets Use with blood glucose test 2 times daily. Insulin Dep? No - alcohol swabs Use with blood glucose test 2 times daily. Insulin Dep? No - lisinopril (ZESTRIL) 20 mg tablet Take 1 tablet by mouth once daily. - atorvastatin (LIPITOR) 40 mg tablet Take 1 tablet by mouth once daily. - mupirocin (BACTROBAN) 2 % ointment Apply to affected area two times a day as needed (skin infection). - glipiZIDE (GLUCOTROL XL) 10mg 24 hr tablet Take 1 tablet by mouth once daily. With supper - allopurinol (ZYLOPRIM) 300 mg tablet Take 1 tablet by mouth once daily. - CPAP/BIPAP/OTHER Lower Settings to fixed pressure IPAP 12, EPAP min 6, PS 6 cm H2O, suitable mask per pt preference, chin strap, head gear, humidity, tubing, lifetime supplies. G47.33 MIKKI - CPAP/BIPAP/OTHER Type .CPAPSettings into a note to see current settings/supplies/DME information. - diclofenac (VOLTAREN ARTHRITIS PAIN) 1 % topical gel Apply 2 g to affected area twice daily as needed. On left shoulder or 5th finger with joint pain - carbamide peroxide (DEBROX) 6.5 % otic solution Use 5 Drops in both ears twice daily. - famotidine (PEPCID) 40 mg tablet Take 1 tablet by mouth at bedtime as needed. For acid reflux - vitamin b complex (B-COMPLEX) tab Take 1 tablet by mouth once daily. - Cholecalciferol, Vitamin D3, 125 mcg (5,000 unit) cap Take 1 capsule by mouth once daily. - tiZANidine (ZANAFLEX) 2 mg tablet Take 1-2 tablets by mouth at bedtime as needed. Muscle spasm, pain - amitriptyline (ELAVIL) 25 mg tablet Take 1-2 tablets by mouth daily at bedtime. For insomnia - Tadalafil (CIALIS) 5 mg tablet Take 1 tablet by mouth as needed (sexual dysfunction). - sodium chloride-aloe vera (AYR SALINE) topical nasal gel 1 application by INTRANASAL route at bedtime as needed (nasal dryness). Meds Comments as of 04/10/2017: Problem List As Of Date 03/25/2024 Noted Resolved MORBID OBESITY [E66.01] 10/07/2008 Dysmetabolic syndrome X [E88.810] 10/10/2008 11/27/2016 Gout [M10.9] 12/19/2009 11/27/2016 Anxiety [F41.9] 12/19/2009 Hypertension [I10] 12/29/2010 Hyperlipidemia with target LDL less than 100 [E*12/29/2010 Cutaneous abscess of chest wall [L02.213] 09/17/2015 11/27/2016 Infected sebaceous cyst [L72.3, L08.9] 01/25/2016 03/07/2024 Skin tag [L91.8] 01/25/2016 11/27/2016 Diabetes mellitus type 2, uncontrolled, without*02/07/2016 Gout [M10.9] 12/19/2009 Fatigue [R53.83] 02/19/2018 Obesity, Class III, BMI 40-49.9 (morbid obesity*02/19/2018 Acute bursitis of right shoulder [M75.51] 02/19/2018 Essential hypertension [I10] 02/16/2019 Uncontrolled type 2 diabetes mellitus without c*02/16/2019 MIKKI (obstructive sleep apnea) [G47.33] 03/15/2019 ED (erectile dysfunction) of organic origin [N5*08/29/2019 Diabetes mellitus type 2 with ketoacidosis, unc*08/29/2019 Uncontrolled type 2 diabetes mellitus with hype*03/13/2021 Chronic insomnia [F51.04] 03/13/2021 Finger pain, left [M79.645] 03/13/2021 Chronic pain of both shoulders [M25.511, G89.29*03/13/2021 Actinic keratosis [L57.0] 06/26/2021 Carpal tunnel syndrome, bilateral [G56.03] 06/26/2021 Vitamin D deficiency [E55.9] 07/09/2022 GERD without esophagitis [K21.9] 07/09/2022 Diabetes mellitus type 2, controlled, without c*10/24/2022 Lung nodules [R91.8] 10/30/2022 Bilateral impacted cerumen [H61.23] 01/07/2023 Vitamin B12 deficiency [E53.8] 01/15/2024 Infected cyst of skin [L72.9, L08.9] (more content not included)... Normal [facility] CNOVon 03-07-2024 CNOV Office Visit (CURTIS ) ROE INTERIANO ([id number]) 1975 M Date Time Provider Department 03/07/24 8:00 AM PATRICK RUBIN During your visit today, we recorded the following information about you: Patrick Rubin MD 03/07/2024 8:20 AM Signed POST OP Patient presents with: Follow Up: 10-14 day L groin abscess HPI: doing well, concerned about new area that drained a couple days ago, no f/c, no pain, no drainage today VITALS: There were no vitals taken for this visit. MEDS: lisinopril (ZESTRIL) 20 mg tablet Take 1 tablet by mouth once daily. atorvastatin (LIPITOR) 40 mg tablet Take 1 tablet by mouth once daily. mupirocin (BACTROBAN) 2 % ointment Apply to affected area two times a day as needed (skin infection). (Patient not taking: Reported on 02/10/2024) metFORMIN ER (GLUCOPHAGE XR) 750 mg 24 hr tablet Take 2 tablets with supper. glipiZIDE (GLUCOTROL XL) 10mg 24 hr tablet Take 1 tablet by mouth once daily. With supper allopurinol (ZYLOPRIM) 300 mg tablet Take 1 tablet by mouth once daily. CPAP/BIPAP/OTHER Lower Settings to fixed pressure IPAP 12, EPAP min 6, PS 6 cm H2O, suitable mask per pt preference, chin strap, head gear, humidity, tubing, lifetime supplies. G47.33 MIKKI (Patient not taking: Reported on 01/15/2024) CPAP/BIPAP/OTHER Type .CPAPSettings into a note to see current settings/supplies/DME information. (Patient not taking: Reported on 01/15/2024) diclofenac (VOLTAREN ARTHRITIS PAIN) 1 % topical gel Apply 2 g to affected area twice daily as needed. On left shoulder or 5th finger with joint pain (Patient not taking: Reported on 01/15/2024) carbamide peroxide (DEBROX) 6.5 % otic solution Use 5 Drops in both ears twice daily. famotidine (PEPCID) 40 mg tablet Take 1 tablet by mouth at bedtime as needed. For acid reflux vitamin b complex (B-COMPLEX) tab Take 1 tablet by mouth once daily. Cholecalciferol, Vitamin D3, 125 mcg (5,000 unit) cap Take 1 capsule by mouth once daily. (Patient not taking: Reported on 01/15/2024) tiZANidine (ZANAFLEX) 2 mg tablet Take 1-2 tablets by mouth at bedtime as needed. Muscle spasm, pain amitriptyline (ELAVIL) 25 mg tablet Take 1-2 tablets by mouth daily at bedtime. For insomnia Tadalafil (CIALIS) 5 mg tablet Take 1 tablet by mouth as needed (sexual dysfunction). sodium chloride-aloe vera (AYR SALINE) topical nasal gel 1 application by INTRANASAL route at bedtime as needed (nasal dryness). Lancets (FREESTYLE LANCETS) Misc lancets Use as instructed blood sugar diagnostic (FREESTYLE TEST) Misc test strip Use as directed. PHYSICAL EXAM: Left mons IANDD site healing well, 3mm opening with some proteinaceous deposit cleaned, no signs of infection or new abscess IMPRESSION: Post op course: expected I have explained to Mr. Interiano that he may return to normal activity with no restrictions. I have encouraged him to contact me at any time with any questions or concerns that may arise. Follow up: prn, encouraged following diabetic diet and monitoring blood sugars Patrick Rubin MD 03/07/2024 8:11 AM Allergies As of Date: 03/07/2024 (No Known Allergies) Date Reviewed: 03/07/2024 Reviewed by: Carlota Bailey MA - Fully Assessed Reason for Visit: Follow Up [171] Cmt: 10-14 day L groin abscess Primary Visit Diagnosis:Infected cyst of skin [L72.9, L08.9] Other Visit Diagnosis:Infected sebaceous cyst [L72.3, L08.9] Prescriptions as of 03/07/2024 - lisinopril (ZESTRIL) 20 mg tablet Take 1 tablet by mouth once daily. - atorvastatin (LIPITOR) 40 mg tablet Take 1 tablet by mouth once daily. - mupirocin (BACTROBAN) 2 % ointment Apply to affected area two times a day as needed (skin infection). - metFORMIN ER (GLUCOPHAGE XR) 750 mg 24 hr tablet Take 2 tablets with supper. - glipiZIDE (GLUCOTROL XL) 10mg 24 hr tablet Take 1 tablet by mouth once daily. With supper - allopurinol (ZYLOPRIM) 300 mg tablet Take 1 tablet by mouth once daily. - CPAP/BIPAP/OTHER Lower Settings to fixed pressure IPAP 12, EPAP min 6, PS 6 cm H2O, suitable mask per pt preference, chin strap, head gear, humidity, tubing, lifetime supplies. G47.33 MIKKI - CPAP/BIPAP/OTHER Type .CPAPSettings into a note to see current settings/supplies/DME information. - diclofenac (VOLTAREN ARTHRITIS PAIN) 1 % topical gel Apply 2 g to affected area twice daily as needed. On left shoulder or 5th finger with joint pain - carbamide peroxide (DEBROX) 6.5 % otic solution Use 5 Drops in both ears twice daily. - famotidine (PEPCID) 40 mg tablet Take 1 tablet by mouth at bedtime as needed. For acid reflux - vitamin b complex (B-COMPLEX) tab Take 1 tablet by mouth once daily. - Cholecalciferol, Vitamin D3, 125 mcg (5,000 unit) cap Take 1 capsule by mouth once daily. - tiZANidine (ZANAFLEX) 2 mg tablet Take 1-2 tablets by mouth at bedtime as n (more content not included)... Normal [facility] CNOVon 02-23-2024 CNOV Office Visit (CURTIS ) ROE INTERIANO ([id number]) 1975 M Date Time Provider Department 02/23/24 8:45 AM PATRICK RUBIN During your visit today, we recorded the following information about you: Pulse Blood pressure Weight Height 74/minute 119/71 122.5 kg 1.757 m Patrick Rubin MD 02/23/2024 6:46 PM Signed Incision and drainage Indication- 48 y/o wm with DM presents for eval of abscess of left side of mons pubis. Initially began in November, started as small pimple, enlarged, became red and painful and then spontaneously drained, seen by PCP treated with bactrim and bactroban. Some improvement but no resolution, yesterday once again became sore and swollen, no recent drg. No f/c. No previous similar episodes. Has DM, hasn;t checked his sugars in a while, had blood work about 1 month ago. Last HgbA1c 01/15/2024 - was 10.9.long h/o poorly controlled dm as in past poor dietary choices. 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 atorvastatin (LIPITOR) 40 mg tablet Take 1 tablet by mouth once daily. mupirocin (BACTROBAN) 2 % ointment Apply to affected area two times a day as needed (skin infection). (Patient not taking: Reported on 02/10/2024) metFORMIN ER (GLUCOPHAGE XR) 750 mg 24 hr tablet Take 2 tablets with supper. glipiZIDE (GLUCOTROL XL) 10mg 24 hr tablet Take 1 tablet by mouth once daily. With supper allopurinol (ZYLOPRIM) 300 mg tablet Take 1 tablet by mouth once daily. CPAP/BIPAP/OTHER Lower Settings to fixed pressure IPAP 12, EPAP min 6, PS 6 cm H2O, suitable mask per pt preference, chin strap, head gear, humidity, tubing, lifetime supplies. G47.33 MIKKI (Patient not taking: Reported on 01/15/2024) CPAP/BIPAP/OTHER Type .CPAPSettings into a note to see current settings/supplies/DME information. (Patient not taking: Reported on 01/15/2024) diclofenac (VOLTAREN ARTHRITIS PAIN) 1 % topical gel Apply 2 g to affected area twice daily as needed. On left shoulder or 5th finger with joint pain (Patient not taking: Reported on 01/15/2024) carbamide peroxide (DEBROX) 6.5 % otic solution Use 5 Drops in both ears twice daily. famotidine (PEPCID) 40 mg tablet Take 1 tablet by mouth at bedtime as needed. For acid reflux vitamin b complex (B-COMPLEX) tab Take 1 tablet by mouth once daily. Cholecalciferol, Vitamin D3, 125 mcg (5,000 unit) cap Take 1 capsule by mouth once daily. (Patient not taking: Reported on 01/15/2024) tiZANidine (ZANAFLEX) 2 mg tablet Take 1-2 tablets by mouth at bedtime as needed. Muscle spasm, pain amitriptyline (ELAVIL) 25 mg tablet Take 1-2 tablets by mouth daily at bedtime. For insomnia Tadalafil (CIALIS) 5 mg tablet Take 1 tablet by mouth as needed (sexual dysfunction). sodium chloride-aloe vera (AYR SALINE) topical nasal gel 1 application by INTRANASAL route at bedtime as needed (nasal dryness). Lancets (FREESTYLE LANCETS) [facility] lancets Use as instructed blood sugar diagnostic (FREESTYLE TEST) Misc test strip Use as directed. No current facility-administered medications on file prior to visit. BP 119/71 Pulse 74 Ht 175.7 cm (5' 9.17) Wt 122.5 kg (270 lb) BMI 39.67 kg/m? Body mass index is 39.67 kg/m?. General appearance: alert, in no acute distress, obese Head: Normocephalic, atraumatic Eyes: Anicteric sclera , Pupils are equally round and reactive Neck: No JVD, Trachea midline Abdomen: Soft, non distended Left side of mons pubis with 3cm fluctuant abscess, no surrounding cellulitis Extremities:No clubbing, cyanosis, or edema. Neuro: Alert and oriented times three, No apparent distress risks benefits and alternatives of proceeding with incision and drainage were discussed with the risks to include but not limited to hemorrhage, infection , seroma or hematoma formation, and the possibility of recurrence. Patient was understanding and wished to pro (more content not included)... Normal [facility] CNOVon 02-10-2024 CNOV Office Visit (FAMPWS ) ROE INTERIANO ([id number]) 1975 M Date Time Provider Department 02/10/24 3:20 PM JENN SOTELO During your visit today, we recorded the following information about you: Pulse Respiration Blood pressure Weight 72/minute 16/minute 124/62 126.9 kg Jenn Sotelo APRN.SOLE CONFORMING MACHINE OPERATOR 02/10/2024 4:05 PM Signed Chief Complaint Patient presents with: follow up groin remains red and sore even after second cour HPI Roe Interiano is a 48 year old male who presents here today for Above Complaints. Roe is an established patient of Dr. Jus DO. He is a new patient to me today. Concerns today... Groin rash/lesion --- Was seen by Dr. Luu on 01/14: Skin lesion, left groin area, sore and tender. Thinks it was red and draining as well. Present for a few weeks. No fevers or chills. Infected cyst of skin - ICD9: 706.2, ICD10: L72.9, L08.9 - Begin treatment with Trimethoprim-sulfamethozazol e (Bactrim) 2 DS PO BID - SULFAMETHOXAZOLE 800 MG-TRIMETHOPRIM 160 MG TABLET Today... Pt reports area is not any better. Got better, seemed almost gone and then antibiotic was done and it came right back. Did another round of antibiotic and the same thing happened. Feels area is larger this time. Feels like a really big pimple Does report burning with urination recently and burning to area. No drainage that he is aware of. No bandage to area. HgA1c is out of control at 10.9 which is likely contributing to poor healing. No other concerns or complaints. Past medical history, appointments, medications, allergies reviewed. 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 Sebaceous cyst 01/25/2016 Sleep apnea Did not tolerate CPAP Previous Surgical History PAST SURGICAL HISTORY Procedure Laterality Date APPENDECTOMY EXCISION BENIGN LESIONS,SCALP,NECK,HANDS 01/18/2016 mid chest EYE SURGERY PROCEDURE 32 yrs ago pt not sure what was done REVISE MEDIAN N/CARPAL TUNNEL SURG Bilateral 2019 VASECTOMY UNI/BI SPX W/POSTOP SEMEN EXAMS Family History FAMILY HISTORY Problem Relation Age of Onset Lipids Mother Prostate Cancer Father Diabetes Father Glaucoma Father Diabetes Maternal Grandmother Diabetes Paternal Grandmother DVT No Family History Patient Allergies ALLERGIES No Known Allergies Current Medications Current Outpatient Medications on File Prior to Visit Medication Sig lisinopril (ZESTRIL) 20 mg tablet Take 1 tablet by mouth once daily. atorvastatin (LIPITOR) 40 mg tablet Take 1 tablet by mouth once daily. mupirocin (BACTROBAN) 2 % ointment Apply to affected area two times a day as needed (skin infection). Phentermine HCl (ADIPEX-P) 37.5 mg tablet Take 1 tablet by mouth once daily for 30 days. BMI 41.70 metFORMIN ER (GLUCOPHAGE XR) 750 mg 24 hr tablet Take 2 tablets with supper. glipiZIDE (GLUCOTROL XL) 10mg 24 hr tablet Take 1 tablet by mouth once daily. With supper allopurinol (ZYLOPRIM) 300 mg tablet Take 1 tablet by mouth once daily. CPAP/BIPAP/OTHER Lower Settings to fixed pressure IPAP 12, EPAP min 6, PS 6 cm H2O, suitable mask per pt preference, chin strap, head gear, humidity, tubing, lifetime supplies. G47.33 MIKKI (Patient not taking: Reported on 01/15/2024) CPAP/BIPAP/OTHER Type .CPAPSettings into a note to see current settings/supplies/DME information. (Patient not taking: Reported on 01/15/2024) glipiZIDE (GLUCOTROL) 10 mg tablet Take 1 tablet by mouth once daily. diclofenac (VOLTAREN ARTHRITIS PAIN) 1 % topical gel Apply 2 g to affected area twice daily as needed. On left shoulder or 5th finger with joint pain (Patient not taking: Reported on 01/15/2024) carbamide peroxide (DEBROX) 6.5 % otic solution Use 5 Drops in both ears twice daily. famotidine (PEPCID) 40 mg tablet Take 1 tablet by mouth at bedtime as needed. For acid reflux vitamin b complex (B-COMPLEX) tab Take 1 tablet by mouth once daily. Cholecalciferol, Vitamin D3, 125 mcg (5,000 unit) cap Take 1 capsule by mouth once daily. (Patient not taking: Reported on 01/15/2024) tiZANidine (ZANAFLEX) 2 mg tablet Take 1-2 tablets by mouth at bedtime as needed. Muscle spasm, pain amitriptyline (ELAVIL) 25 mg tablet Take 1-2 tablets by mouth daily at bedtime. For insomnia Tadalafil (CIALIS) 5 mg tablet Take 1 tablet by mouth as needed (sexual dysfunction). sodium chloride-aloe vera (AYR SALINE) topical nasal gel 1 application by INTRANASAL route at bedtime as (more content not included)... Normal [facility] UA DIP, URINE (POC)on 2023 BILIRUBIN UA (POCT) Negative Negative [facility] CLARITY UA (POCT) Clear [facility] COLOR UA (POCT) Yellow [facility] GLUCOSE UA (POCT) 100 mg/dL Abnormal Negative [facility] Hemoglobin Ql (U) Negative Negative [facility] Interpretation and review of laboratory results Abnormal [facility] KETONE UA (POCT) Negative Negative mg/dL [facility] LEUKOCYTES UA (POCT) Negative Negative [facility] NITRITE UA (POCT) Negative Negative [facility] PH UA (POCT) 5.5 4.5 - 8.0 [facility] Protein Ql (U) Negative Negative mg/dL [facility] SPECIFIC GRAVITY UA (POCT) <=1.005 Abnormal 1.005 - 1.030 [facility] UROBILINOGEN UA (POCT) 0.2 Normal E.U./dL [facility] Location:[facility], [address] [place] [address], [place], [place], [id number] [place] [address] POINT OF CARE [facility] CNPTayler 02-03-2024 CNPN [facility] JAYDONROE D ([id number]) 1975 M Date Time Provider Department 02/03/24 EAN LUU During your visit today, we recorded the following information about you: Ean Luu DO 02/03/2024 10:24 PM Signed Please let him know that his testosterone levels are still low normal. Recommend follow up with Urologist or dewer for opinion if interested in taking testosterone hormone DO Reena Salinas [place], MA 02/04/2024 9:35 AM Signed Pt informed, verbalized understanding. Please assist with scheduling. Lisa Valles MA Allergies As of Date: 02/03/2024 (No Known Allergies) Date Reviewed: 01/15/2024 Reviewed by: Sarah Lua LPN - Fully Assessed Prescriptions as of 03/30/2024 - ONEJobviteUCH ULTRA2 METER 1 Each by VIA DEVICE route once daily. - metFORMIN ER (GLUCOPHAGE XR) 750 mg 24 hr tablet Take 2 tablets with supper. - blood sugar diagnostic test strip Use with blood glucose test 2 times daily, Insulin Dep? No - Lancets Use with blood glucose test 2 times daily. Insulin Dep? No - alcohol swabs Use with blood glucose test 2 times daily. Insulin Dep? No - lisinopril (ZESTRIL) 20 mg tablet Take 1 tablet by mouth once daily. - atorvastatin (LIPITOR) 40 mg tablet Take 1 tablet by mouth once daily. - mupirocin (BACTROBAN) 2 % ointment Apply to affected area two times a day as needed (skin infection). - glipiZIDE (GLUCOTROL XL) 10mg 24 hr tablet Take 1 tablet by mouth once daily. With supper - allopurinol (ZYLOPRIM) 300 mg tablet Take 1 tablet by mouth once daily. - CPAP/BIPAP/OTHER Lower Settings to fixed pressure IPAP 12, EPAP min 6, PS 6 cm H2O, suitable mask per pt preference, chin strap, head gear, humidity, tubing, lifetime supplies. G47.33 MIKKI - CPAP/BIPAP/OTHER Type .CPAPSettings into a note to see current settings/supplies/DME information. - diclofenac (VOLTAREN ARTHRITIS PAIN) 1 % topical gel Apply 2 g to affected area twice daily as needed. On left shoulder or 5th finger with joint pain - carbamide peroxide (DEBROX) 6.5 % otic solution Use 5 Drops in both ears twice daily. - famotidine (PEPCID) 40 mg tablet Take 1 tablet by mouth at bedtime as needed. For acid reflux - vitamin b complex (B-COMPLEX) tab Take 1 tablet by mouth once daily. - Cholecalciferol, Vitamin D3, 125 mcg (5,000 unit) cap Take 1 capsule by mouth once daily. - tiZANidine (ZANAFLEX) 2 mg tablet Take 1-2 tablets by mouth at bedtime as needed. Muscle spasm, pain - amitriptyline (ELAVIL) 25 mg tablet Take 1-2 tablets by mouth daily at bedtime. For insomnia - Tadalafil (CIALIS) 5 mg tablet Take 1 tablet by mouth as needed (sexual dysfunction). - sodium chloride-aloe vera (AYR SALINE) topical nasal gel 1 application by INTRANASAL route at bedtime as needed (nasal dryness). Meds Comments as of 04/10/2017: Problem List As Of Date 02/03/2024 Noted Resolved MORBID OBESITY [E66.01] 10/07/2008 Dysmetabolic syndrome X [E88.810] 10/10/2008 11/27/2016 Gout [M10.9] 12/19/2009 11/27/2016 Anxiety [F41.9] 12/19/2009 Hypertension [I10] 12/29/2010 Hyperlipidemia with target LDL less than 100 [E*12/29/2010 Cutaneous abscess of chest wall [L02.213] 09/17/2015 11/27/2016 Sebaceous cyst [L72.3] 01/25/2016 11/27/2016 Skin tag [L91.8] 01/25/2016 11/27/2016 Diabetes mellitus type 2, uncontrolled, without*02/07/2016 Gout [M10.9] 12/19/2009 Fatigue [R53.83] 02/19/2018 Obesity, Class III, BMI 40-49.9 (morbid obesity*02/19/2018 Acute bursitis of right shoulder [M75.51] 02/19/2018 Essential hypertension [I10] 02/16/2019 Uncontrolled type 2 diabetes mellitus without c*02/16/2019 MIKKI (obstructive sleep apnea) [G47.33] 03/15/2019 ED (erectile dysfunction) of organic origin [N5*08/29/2019 Diabetes mellitus type 2 with ketoacidosis, unc*08/29/2019 Uncontrolled type 2 diabetes mellitus with hype*03/13/2021 Chronic insomnia [F51.04] 03/13/2021 Finger pain, left [M79.645] 03/13/2021 Chronic pain of both shoulders [M25.511, G89.29*03/13/2021 Actinic keratosis [L57.0] 06/26/2021 Carpal tunnel syndrome, bilateral [G56.03] 06/26/2021 Vitamin D deficiency [E55.9] 07/09/2022 GERD without esophagitis [K21.9] 07/09/2022 Diabetes mellitus type 2, controlled, without c*10/24/2022 Lung nodules [R91.8] 10/30/2022 Bilateral impacted cerumen [H61.23] 01/07/2023 Vitamin B12 deficiency [E53.8] 01/15/2024 Infected cyst of skin [L72.9, L08.9] 01/15/2024 Encounter Status:Closed by ALLI MULLEN on 03/30/24 Normal [facility] TESTOSTERONE, FREE AND TOTAL on 01-27-2024 TESTOSTERONE, FREE, S 8.50 ng/dL Normal 4.26-16.4 [facility] Comment on above: Order Comment: Speci men Type: BLOOD SPECIMENOrdering Facility: [facility] Address: [address], [place] [address] Result Comment: ADDITIONAL INFORMATION This test was developed and its performance characteristics determined by [facility] in a manner consistent with CLIA requirements. This test has not been cleared or approved by the U.S. Food and Drug Administration. Performed By: #### T FTEST ####[facility] REFERENCE LABCLIA [id number] [place] [address] TESTOSTERONE, TOTAL, S 200 ng/dL Low 240-950 [facility] Comment on above: Order Comment: Speci men Type: BLOOD SPECIMENOrdering Facility: [facility] Address: [address] [place] [address] Result Comment: ADDITIONAL INFORMATION Testing performed by Liquid Chromatography-Tandem Mass Spectrometry (LC-MS/MS). This test was developed and its performance characteristics determined by [facility] in a manner consistent with CLIA requirements. This test has not been cleared or approved by the U.S. Food and Drug Administration. Test Performed by: [facility] [place] [id number] Strategic Analyst: Ulysses Sher M.D. Ph.D.; CLIA# [id number] Performed By: #### T FTEST ####[facility] REFERENCE LABCLIA [id number] [place] [address] Virid[place] 01-26-20[facility] ROE INTERIANO ([id number]) 1975 M Date Time Provider Department 01/26/24 [facility] During your visit today, we recorded the following information about you: Joyce Cline LPN 01/26/2024 9:30 AM Signed Patient calling asking PCP recommendations on his PSA and Testosterone lab results, he can see these on his my chart. His appt was before his labs were done. Please advise Latest Ref Rng 01/15/2024 WBC 3.70 - 11.00 k/uL 8.96 RBC 4.20 - 6.00 m/uL 5.70 Hemoglobin 13.0 - 17.0 g/dL 15.7 Hematocrit 39.0 - 51.0 % 46.3 MCV 80.0 - 100.0 fL 81.2 MCH 26.0 - 34.0 pg 27.5 MCHC 30.5 - 36.0 g/dL 33.9 RDW-CV 11.5 - 15.0 % 14.1 Platelet Count 150 - 400 k/uL 270 MPV 9.0 - 12.7 fL 10.4 Neut% % 72.7 Abs Neut (ANC) 1.45 - 7.50 k/uL 6.52 Lymph% % 16.2 Abs Lymph 1.00 - 4.00 k/uL 1.45 Edwards% % 6.3 Abs Edwards <0.87 k/uL 0.56 Eosin% % 3.6 Abs Eosin <0.46 k/uL 0.32 Baso% % 1.0 Abs Baso <0.11 k/uL 0.09 Immature Gran % % 0.2 IMMATURE GRANS (ABS) <0.10 k/uL <0.03 NRBC /100 WBC 0.0 Absolute nRBC <0.01 k/uL <0.01 DTYPE Auto Protein, Total 6.3 - 8.0 g/dL 7.1 Albumin 3.9 - 4.9 g/dL 4.4 Calcium 8.5 - 10.2 mg/dL 9.9 Bilirubin, Total 0.2 - 1.3 mg/dL 0.8 Alkaline Phosphatase 38 - 113 U/L 117 (H) AST 14 - 40 U/L 26 ALT 10 - 54 U/L 31 Glucose 74 - 99 mg/dL 373 (H) BUN 9 - 24 mg/dL 16 Creatinine 0.73 - 1.22 mg/dL 0.75 Sodium 136 - 144 mmol/L 134 (L) Potassium 3.7 - 5.1 mmol/L 4.5 Chloride 97 - 105 mmol/L 100 CO2 22 - 30 mmol/L 20 (L) Anion Gap 9 - 18 mmol/L 14 eGFR >=60 mL/min/1.73m? 112 Total Cholesterol, Nonfasting <200 mg/dL 145 Triglycerides, Nonfasting <150 mg/dL 988 (H) HDL Cholesterol, Nonfasting >39 mg/dL 31 (L) LDL Cholesterol, Nonfasting -- Non HDL Cholesterol, Nonfasting <130 mg/dL 114 VLDL Cholesterol, Nonfasting -- Total Chol/HDL Ratio, Nonfasting <5.10 mg/dL 4.68 LDL/HDL Ratio, Nonfasting -- Testosterone Free 4.26 - 16.4 ng/dL 4.72 Testosterone 240 - 950 ng/dL 122 (L) Hemoglobin A1C 4.3 - 5.6 % 10.9 (H) Estimated Average Glucose mg/dL 266 PSA Screening <2.60 ng/mL 0.49 Legend: (H) High (L) Low Ean Luu DO 01/26/2024 4:59 PM Signed Please inform patient that his testosterone levels are low. Would recommend this to be rechecked. If it is still low, then needs to consider seeing Urologist for opinion regarding if safe for him to be on testotserone replacement therapy. His PSA prostate levels are normal. He needs to be considering starting another glucose medication for regulation of his uncontrolled diabetes such as Jardiance or Trulicity or Lantus insulin daily as injection DO Tyler Salinas Amanda, RN 01/26/2024 6:23 PM Signed Pt called and is notified of providers results and instructions. Pt voices understanding. Pt scheduled recheck of testosterone levels. Pt states he does not want to start another medication at this time for his uncontrolled diabetes. INO Pride Alyson, APRN.OND[place] 01/27/2024 9:42 AM Signed Noted. Thank you, Jenn Sotelo APRN.SOLE CONFORMING MACHINE OPERATOR Allergies As of Date: 01/26/2024 (No Known Allergies) Date Reviewed: 01/15/2024 Reviewed by: Sarah Lua LPN - Fully Assessed Reason for Visit: Results, Lab [1201] Primary Visit Diagnosis:Low testosterone [R79.89] Order(s):TESTOSTERONE, FREE AND TOTAL [SQTFTEST] Order #: [id number] FUTURE Prescriptions as of 01/27/2024 - lisinopril (ZESTRIL) 20 mg tablet take 1 tablet by mouth daily - mupirocin (BACTROBAN) 2 % ointment Apply to affected area two times a day as needed (skin infection). - Phentermine HCl (ADIPEX-P) 37.5 mg tablet Take 1 tablet by mouth once daily for 30 days. BMI 41.70 - metFORMIN ER (GLUCOPHAGE XR) 750 mg 24 hr tablet Take 2 tablets with supper. - atorvastatin (LIPITOR) 40 mg tablet Take 1 tablet by mouth once daily. - glipiZIDE (GLUCOTROL XL) 10mg 24 hr tablet Take 1 tablet by mouth once daily. With supper - allopurinol (ZYLOPRIM) 300 mg tablet Take 1 tablet by mouth once daily. - CPAP/BIPAP/OTHER Lower Settings to fixed pressure IPAP 12, EPAP min 6, PS 6 cm H2O, suitable mask per pt preference, chin strap, head gear, humidity, tubing, lifetime supplies. G47.33 MIKKI - CPAP/BIPAP/OTHER Type .CPAPSettings into a note to see current settings/supplies/DME information. - glipiZIDE (GLUCOTROL) 10 mg tablet Take 1 tablet by mouth once daily. - diclofenac (VOLTAREN ARTHRITIS PAIN) 1 % topical gel Apply 2 g to affected area twice daily as needed. On left shoulder or 5th finger with joint pain - carbamide peroxide (DEBROX) 6.5 % otic solution Use 5 Drops in both ears twice daily. - famotidine (PEPCID) 40 mg tablet Take 1 tablet by mouth at bedtime as needed. For acid reflux - vitamin b complex (B-COMPLEX) tab Take 1 tablet by mouth once daily. - Cholecalci (more content not included)... Normal [facility] CBC W Auto Differential pane l (Bld)on 01-16-2024 Basophils (Bld) [#/Vol] 0.09 10*3/uL <0.11 k/uL [facility] Basophils/100 WBC (Bld) 1.0 % [facility] Differential cell count method Nom (Bld) Auto [facility] Eosinophils (Bld) [#/Vol] 0.32 10*3/uL <0.46 k/uL [facility] Eosinophils/100 WBC (Bld) 3.6 % [facility] Erythrocyte distribution width (RBC) [Ratio] 14.1 % 11.5 - 15.0 % [facility] Hematocrit (Bld) [Volume fraction] 46.3 % 39.0 - 51.0 % [facility] Hemoglobin (Bld) [Mass/Vol] 15.7 g/dL 13.0 - 17.0 g/dL [facility] Immature granulocytes (Bld) [#/Vol] <0.10 k/uL [facility] Immature granulocytes/100 WBC (Bld) 0.2 % [facility] Lymphocytes (Bld) [#/Vol] 1.45 10*3/uL 1.00 - 4.00 k/uL [facility] Lymphocytes/100 WBC (Bld) 16.2 % [facility] MCH (RBC) [Entitic mass] 27.5 pg 26.0 - 34.0 pg [facility] MCHC (RBC) [Mass/Vol] 33.9 g/dL 30.5 - 36.0 g/dL [facility] MCV (RBC) [Entitic vol] 81.2 fL 80.0 - 100.0 fL [facility] Monocytes (Bld) [#/Vol] 0.56 10*3/uL <0.87 k/uL [facility] Monocytes/100 WBC (Bld) 6.3 % [facility] Neutrophils (Bld) [#/Vol] 6.52 10*3/uL 1.45 - 7.50 k/uL [facility] Neutrophils/100 WBC (Bld) 72.7 % [facility] Nucleated RBC (Bld) [#/Vol] <0.01 k/uL [facility] Nucleated RBC/100 WBC (Bld) [Ratio] 0.0 /100 WBC [facility] Platelet mean volume (Bld) [Entitic vol] 10.4 fL 9.0 - 12.7 fL [facility] Platelets (Bld) [#/Vol] 270 10*3/uL 150 - 400 k/uL [facility] RBC (Bld) [#/Vol] 5.70 10*6/uL 4.20 - 6.0 0 m/uL [facility] WBC (Bld) [#/Vol] 8.96 10*3/uL 3.70 - 11. 00 k/uL [facility] CBC W Auto Differential pane l (Bld)on 01-15-2024 Basophils (Bld) [#/Vol] 0.09 10*3/uL Normal <0.11 [facility] Comment on above: Order Comment: Speci men Type: BLOOD SPECIMENOrdering Facility: [facility] Address: [address] [place] [address] Performed By: #### 5 7021-8 ####[facility] LABCLIA [id number] [place] [address] [place] Basophils/100 WBC (Bld) 1.0 % Normal [facility] Comment on above: Order Comment: Speci men Type: BLOOD SPECIMENOrdering Facility: [facility] Address: [address] [place] [address] Performed By: #### 5 7021-8 ####[facility] LABCLIA [id number] [place] [address] [place] Differential cell count method Nom (Bld) Auto Normal [facility] Comment on above: Order Comment: Speci men Type: BLOOD SPECIMENOrdering Facility: [facility] Address: [address] [place] [address] Performed By: #### 5 7021-8 ####[facility] LABCLIA [id number] [place] [address] [place] Eosinophils (Bld) [#/Vol] 0.32 10*3/uL Normal <0.46 [facility] Comment on above: Order Comment: Speci men Type: BLOOD SPECIMENOrdering Facility: [facility] Address: [address] [place] [address] Performed By: #### 5 7021-8 ####[facility] LABCLIA [id number] [place] [address] [place] Eosinophils/100 WBC (Bld) 3.6 % Normal [facility] Comment on above: Order Comment: Speci men Type: BLOOD SPECIMENOrdering Facility: [facility] Address: [address] [place] [address] Performed By: #### 5 7021-8 ####[facility] LABCLIA [id number] [place] [address] [place] Erythrocyte distribution width (RBC) [Ratio] 14.1 % Normal 11.5-15.0 [facility] Comment on above: Order Comment: Speci men Type: BLOOD SPECIMENOrdering Facility: [facility] Address: [address] [place] [address] Performed By: #### 5 7021-8 ####[facility] LABCLIA [id number] [place] [address] [place] Hematocrit (Bld) [Volume fraction] 46.3 % Normal 39.0-51.0 [facility] Comment on above: Order Comment: Speci men Type: BLOOD SPECIMENOrdering Facility: [facility] Address: [address] [place] [address] Performed By: #### 5 7021-8 ####[facility] LABIA [id number] [place] [address] [place] Hemoglobin (Bld) [Mass/Vol] 15.7 g/dL Normal 13.0-17.0 [facility] Comment on above: Order Comment: Speci men Type: BLOOD SPECIMENOrdering Facility: [facility] Address: [address] [place] [address] Performed By: #### 5 7021-8 ####[facility] LABIA [id number] [place] [address] [place] Immature granulocytes (Bld) [#/Vol] 10*3/uL Normal <0.10 [facility] Comment on above: Order Comment: Speci men Type: BLOOD SPECIMENOrdering Facility: [facility] Address: [address] [place] [address] Performed By: #### 5 7021-8 ####[facility] LABCLIA [id number] [place] [address] [place] Immature granulocytes/100 WBC (Bld) 0.2 % Normal [facility] Comment on above: Order Comment: Speci men Type: BLOOD SPECIMENOrdering Facility: [facility] Address: [address] [place] [address] Performed By: #### 5 7021-8 ####[facility] LABCLIA [id number] [place] [address] [place] Lymphocytes (Bld) [#/Vol] 1.45 10*3/uL Normal 1.00-4.00 [facility] Comment on above: Order Comment: Speci men Type: BLOOD SPECIMENOrdering Facility: [facility] Address: [address] [place] [address] Performed By: #### 5 7021-8 ####[facility] LABCLIA [id number] [place] [address] [place] Lymphocytes/100 WBC (Bld) 16.2 % Normal [facility] Comment on above: Order Comment: Speci men Type: BLOOD SPECIMENOrdering Facility: [facility] Address: [address] [place] [address] Performed By: #### 5 7021-8 ####[facility] LABCLIA [id number] [place] [address] [place] MCH (RBC) [Entitic mass] 27.5 pg Normal 26.0-34.0 [facility] Comment on above: Order Comment: Speci men Type: BLOOD SPECIMENOrdering Facility: [facility] Address: [address] [place] [address] Performed By: #### 5 7021-8 ####[facility] LABCLIA [id number] [place] [address] [place] MCHC (RBC) [Mass/Vol] 33.9 g/dL Normal 30.5-36.0 [facility] Comment on above: Order Comment: Speci men Type: BLOOD SPECIMENOrdering Facility: [facility] Address: [address] [place] [address] Performed By: #### 5 7021-8 ####[facility] LABCLIA [id number] [place] [address] [place] MCV (RBC) [Entitic vol] 81.2 fL Normal 80.0-100.0 [facility] Comment on above: Order Comment: Speci men Type: BLOOD SPECIMENOrdering Facility: [facility] Address: [address] [place] [address] Performed By: #### 5 7021-8 ####[facility] LABIA [id number] [place] [address] [place] Monocytes (Bld) [#/Vol] 0.56 10*3/uL Normal <0.87 [facility] Comment on above: Order Comment: Speci men Type: BLOOD SPECIMENOrdering Facility: [facility] Address: [address] [place] [address] Performed By: #### 5 7021-8 ####[facility] LABCLIA [id number] [place] [address] [place] Monocytes/100 WBC (Bld) 6.3 % Normal [facility] Comment on above: Order Comment: Speci men Type: BLOOD SPECIMENOrdering Facility: [facility] Address: [address] [place] [address] Performed By: #### 5 7021-8 ####[facility] LABIA [id number] [place] [address] [place] Neutrophils (Bld) [#/Vol] 6.52 10*3/uL Normal 1.45-7.50 [facility] Comment on above: Order Comment: Speci men Type: BLOOD SPECIMENOrdering Facility: [facility] Address: [address] [place] [address] Performed By: #### 5 7021-8 ####[facility] LABCLIA [id number] [place] [address] [place] Neutrophils/100 WBC (Bld) 72.7 % Normal [facility] Comment on above: Order Comment: Speci men Type: BLOOD SPECIMENOrdering Facility: [facility] Address: [address] [place] [address] Performed By: #### 5 7021-8 ####[facility] LABCLIA [id number] [place] [address] [place] Nucleated RBC (Bld) [#/Vol] 10*3/uL Normal <0.01 [facility] Comment on above: Order Comment: Speci men Type: BLOOD SPECIMENOrdering Facility: [facility] Address: [address] [place] [address] Performed By: #### 5 7021-8 ####[facility] LABCLIA [id number] [place] [address] [place] Nucleated RBC/100 WBC (Bld) [Ratio] 0.0 /100 WBC Normal [facility] Comment on above: Order Comment: Speci men Type: BLOOD SPECIMENOrdering Facility: [facility] Address: [address] [place] [address] Performed By: #### 5 7021-8 ####[facility] LABCLIA [id number] [place] [address] [place] Platelet mean volume (Bld) [Entitic vol] 10.4 fL Normal 9.0-12.7 [facility] Comment on above: Order Comment: Speci men Type: BLOOD SPECIMENOrdering Facility: [facility] Address: [address] [place] [address] Performed By: #### 5 7021-8 ####[facility] LABCLIA [id number] [place] [address] [place] Platelets (Bld) [#/Vol] 270 10*3/uL Normal 150-400 [facility] Comment on above: Order Comment: Speci men Type: BLOOD SPECIMENOrdering Facility: [facility] Address: [address] [place] [address] Performed By: #### 5 7021-8 ####[facility] LABCLIA [id number] [place] [address] [place] RBC (Bld) [#/Vol] 5.70 10*6/uL Normal 4.20-6.00 [facility] Comment on above: Order Comment: Speci men Type: BLOOD SPECIMENOrdering Facility: [facility] Address: [address] [place] [address] Performed By: #### 5 7021-8 ####[facility] LABCLIA [id number] [place], [place] [address] [place] WBC (Bld) [#/Vol] 8.96 10*3/uL Normal 3.70-11.00 [facility] Comment on above: Order Comment: Speci men Type: BLOOD SPECIMENOrdering Facility: [facility] Address: [address] [place] [address] Performed By: #### 5 7021-8 ####[facility] LABIA [id number] [place] [address] [place] CNOVon 01-15-2024 CNOV Office Visit (FAMPWS ) ROE INTERIANO ([id number]) 1975 M Date Time Provider Department 01/15/24 4:00 PM EAN LUU FAMPWS During your visit today, we recorded the following information about you: Pulse Respiration Blood pressure Weight 100/minute 14/minute 150/80 128.7 kg Ean Luu, 01/15/2024 5:17 PM Signed Patient presents with: 6 month f/up HPI: Roe Boykin Jaydon is a 48 year old male who presents to the office today for review of health conditions. Concerns today: Erectile dysfunction, long standing, difficulty with achieving and maintaining an erection. Has been on ERECTILE DYSFUNCTION medications in the past without much benefit, he would like to have testosterone levels checked Morbid obesity, weight at 283 lbs, knows that he needs to work on weight loss. He is interested in a trial of a medication. Is trying to be more physically active as well as eating healthier diet. Skin lesion, left groin area, sore and tender. Thinks it was red and draining as well. Present for a few weeks. No fevers or chills. Mr. Interiano has past history of diabetes. Since our last visit he denies excessive thirst or increased frequency of urination, chest pain or dyspnea , new or unusual visual symptoms, and low sugar/hypoglycemic reactions. Depression- no. Follows a diabetic diet some of the time. He is compliant with medication(s) and is tolerating med(s) without any side effects. He reports checking his glucose on a twice a day schedule with sugars in the <200 range. Patient's last HgA1C was Hemoglobin A1C (%) Date Value 06/27/2023 11.2 10/27/2022 9.9 09/02/2021 10.3 06/21/2021 9.6 Hemoglobin A1C (POCT) (%) Date Value 10/01/2022 9.8 ) Last Ophthalmology exam was within the past 12 months Mr. Interiano reports history of hyperlipidemia. Current therapy includes atorvastatin (Lipitor) 40 mg. Denies side effects of muscle weakness or achiness. His most recent lipid panels are reviewed. Cholesterol, Total (mg/dL) Date Value 06/27/2023 119 06/21/2021 144 HDL Cholesterol (mg/dL) Date Value 06/27/2023 28 06/21/2021 30 LDL Cholesterol Date Value 06/27/2023 Comment: Unable to calculate due to increased Triglycerides. See LDL-Chol, Direct. 06/21/2021 Unable to calculate due to increased Triglycerides. See LDL-Chol, Direct. mg/dL Triglyceride (mg/dL) Date Value 06/27/2023 503 06/21/2021 539 Mr. Interiano indicates a history of hypertension and states that he is feeling well and denies any symptoms referable to elevated blood pressure. Specifically denies headache, chest pain, palpitations, dyspnea, and peripheral edema. Patient denies any side effects of his medication(s) and is compliant with their regimen. Last 3 Encounter BP Readings: Date: BP: 01/15/2024 150/80 07/15/2023 130/80 01/07/2023 136/70 He watches his diet for sodium, low fat and low cholesterol some of the time. He does not check BP's generally. Roe gets minimal exercise. 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 Sebaceous cyst 01/25/2016 Sleep apnea Did not tolerate CPAP PAST SURGICAL HISTORY Procedure Laterality Date APPENDECTOMY EXCISION BENIGN LESIONS,SCALP,NECK,HANDS 01/18/2016 mid chest EYE SURGERY PROCEDURE 32 yrs ago pt not sure what was done REVISE MEDIAN N/CARPAL TUNNEL SURG Bilateral 2019 VASECTOMY UNI/BI SPX W/POSTOP SEMEN EXAMS Social History Tobacco Use Smoking status: Never Smokeless tobacco: Never Vaping Use Vaping Use: Never used Substance Use Topics Alcohol use: No Drug use: No FAMILY HISTORY Problem Relation Age of Onset Lipids Mother Prostate Cancer Father Diabetes Father Glaucoma Father Diabetes Maternal Grandmother Diabetes Paternal Grandmother DVT No Family History Allergies: ALLERGIES No Known Allergies Current Meds: lisinopril (ZESTRIL) 20 mg tablet take 1 tablet by mouth daily metFORMIN ER (GLUCOPHAGE XR) 750 mg 24 hr tablet Take 2 tablets with supper. atorvastatin (LIPITOR) 40 mg tablet Take 1 tablet by mouth once daily. glipiZIDE (GLUCOTROL XL) 10mg 24 hr tablet Take 1 tablet by mouth once daily. With supper allopurinol (ZYLOPRIM) 300 mg tablet Take 1 tablet by mouth once daily. glipiZIDE (GLUCOTROL) 10 mg tablet Take 1 tablet by mouth once daily. carbamide peroxide (DEBROX) 6.5 % otic solution Use 5 Drops in both ears twice daily. famotidine (PEPCID) 40 mg tablet Take 1 tablet by mouth at bedtime as needed. For acid re (more content not included)... Normal [facility] Comprehensive metabolic 2000 panelon 01-15-2024 Albumin [Mass/Vol] 4.4 g/dL Normal 3.9-4.9 [facility] Comment on above: Order Comment: Speci men Type: BLOOD SPECIMENOrdering Facility: [facility] Address: [address] [place] [address] Performed By: #### 2 4323-8, LIPNF ####[facility] LABCLIA [id number] [place] [address] [place] ALP [Catalytic activity/Vol] 117 U/L High 38-113 [facility] Comment on above: Order Comment: Speci men Type: BLOOD SPECIMENOrdering Facility: [facility] Address: [address] [place] [address] Performed By: #### 2 4323-8, LIPNF ####[facility] LABCLIA [id number] [place] [address] [place] ALT [Catalytic activity/Vol] 31 U/L Normal 10-54 [facility] Comment on above: Order Comment: Speci men Type: BLOOD SPECIMENOrdering Facility: [facility] Address: [address] [place] [address] Performed By: #### 2 4323-8, LIPNF ####[facility] LABCLIA [id number] [place] [address] [place] Anion gap [Moles/Vol] 14 mmol/L Normal 9-18 [facility] Comment on above: Order Comment: Speci men Type: BLOOD SPECIMENOrdering Facility: [facility] Address: [address] [place] [address] Performed By: #### 2 4323-8, LIPNF ####[facility] LABCLIA [id number] [place] [address] [place] AST [Catalytic activity/Vol] 26 U/L Normal 14-40 [facility] Comment on above: Order Comment: Speci men Type: BLOOD SPECIMENOrdering Facility: [facility] Address: [address] [place] [address] Performed By: #### 2 4323-8, LIPNF ####[facility] LABCLIA [id number] [place] [address] [place] Bilirubin [Mass/Vol] 0.8 mg/dL Normal 0.2-1.3 [facility] Comment on above: Order Comment: Speci men Type: BLOOD SPECIMENOrdering Facility: [facility] Address: [address] [place] [address] Performed By: #### 2 4323-8, LIPNF ####[facility] LABCLIA [id number] [place] [address] [place] Calcium [Mass/Vol] 9.9 mg/dL Normal 8.5-10.2 [facility] Comment on above: Order Comment: Speci men Type: BLOOD SPECIMENOrdering Facility: [facility] Address: [address] [place] [address] Performed By: #### 2 4323-8, LIPNF ####[facility] LABCLIA [id number] [place] [address] [place] Chloride [Moles/Vol] 100 mmol/L Normal 97-105 [facility] Comment on above: Order Comment: Speci men Type: BLOOD SPECIMENOrdering Facility: [facility] Address: [address] [place] [address] Performed By: #### 2 4323-8, LIPNF ####[facility] LABCLIA [id number] [place] [address] [place] CO2 [Moles/Vol] 20 mmol/L Low 22-30 [facility] Comment on above: Order Comment: Speci men Type: BLOOD SPECIMENOrdering Facility: [facility] Address: [address] [place] [address] Performed By: #### 2 4323-8, LIPNF ####[facility] LABCLIA [id number] [place] [id number] [place] Creatinine [Mass/Vol] 0.75 mg/dL Normal 0.73-1.22 [facility] Comment on above: Order Comment: Rachel mejia Type: BLOOD SPECIMENOrdering Facility: [facility] Address: [address] [place] [address] Performed By: #### 2 4323-8, LIPNF ####[facility] LABIA [id number] [place] [address] [place] [facility] Creatinine and Glomerular filtration rate.predicted panel (S/P/Bld) 112 mL/min/1.73m??? Normal >=60 [facility] Comment on above: Order Comment: Rachel mejia Type: BLOOD SPECIMENOrdering Facility: [facility] Address: [address] [place] [address] Result Comment: Celeste mated Glomerular Filtration Rate (eGFR) is calculated using the 2020 CKD-EPI creatinine equation. This equation utilizes serum creatinine, sex, and age as parameters. The creatinine assay has traceable calibration to isotope dilution-mass spectrometry. Refer to KDIGO guidelines for clinical interpretation. In patients with unstable renal function, e.g. those with acute kidney injury, the eGFR may not accurately reflect actual GFR. Performed By: #### 2 4323-8, LIPNF ####[facility] LABIA [id number] [place] [address] [place] Glucose [Mass/Vol] 373 mg/dL High 74-99 [facility] Comment on above: Order Comment: Rachel mejia Type: BLOOD SPECIMENOrdering Facility: [facility] Address: [address] [place] [address] Result Comment: The [place] Diabetes Association (ADA) provides guidance for cutoff values for fasting glucose and random glucose. The ADA defines fasting as no caloric intake for at least 8 hours. Fasting plasma glucose results between 100 to 125 mg/dL indicate increased risk for diabetes (prediabetes). Fasting plasma glucose results greater than or equal to 126 mg/dL meet the criteria for diagnosis of diabetes. In the absence of unequivocal hyperglycemia, results should be confirmed by repeat testing. In a patient with classic symptoms of hyperglycemia or hyperglycemic crisis, random plasma glucose results greater than or equal to 200 mg/dL meet the criteria for diagnosis of diabetes. Reference: Standards of Medical Care in Diabetes 2016, [place] [employer] Association. Diabetes Care. 2016.39(Suppl 1). Performed By: #### 2 4323-8, LIPNF ####[facility] LABCLIA [id number] [place] [address] [place] Potassium [Moles/Vol] 4.5 mmol/L Normal 3.7-5.1 [facility] Comment on above: Order Comment: Speci men Type: BLOOD SPECIMENOrdering Facility: [facility] Address: [address] [place] [address] Performed By: #### 2 4323-8, LIPNF ####[facility] LABCLIA [id number] [place] [address] [place] Protein [Mass/Vol] 7.1 g/dL Normal 6.3-8.0 [facility] Comment on above: Order Comment: Speci men Type: BLOOD SPECIMENOrdering Facility: [facility] Address: [address] [place] [address] Performed By: #### 2 4323-8, LIPNF ####[facility] LABCLIA [id number] [place] [address] [place] Sodium [Moles/Vol] 134 mmol/L Low 136-144 [facility] Comment on above: Order Comment: Speci men Type: BLOOD SPECIMENOrdering Facility: [facility] Address: [address] [place] [address] Performed By: #### 2 4323-8, LIPNF ####[facility] LABCLIA [id number] [place] [address] [place] Urea nitrogen [Mass/Vol] 16 mg/dL Normal 9-24 [facility] Comment on above: Order Comment: Speci men Type: BLOOD SPECIMENOrdering Facility: [facility] Address: [address] [place] [address] Performed By: #### 2 4323-8, LIPNF ####[facility] LABCLIA [id number] [place] [address] [place] HbA1c (Bld)on 01-15-2024 Average glucose Estimated from glycated hemoglobin (Bld) [Mass/Vol] 266 mg/dL Normal [facility] Comment on above: Order Comment: Speci men Type: BLOOD SPECIMENOrdering Facility: [facility] Address: [address] [place] [address] Result Comment: eAG: (Estimated average glucose) is a calculated value from HgbA1c and is passenger representative of the average blood glucose level in the last 2-3 month period. Performed By: #### 5 5454-3 ####[facility] LABIA [id number] [place] [address] [place] HbA1c (Bld) [Mass fraction] 10.9 % High 4.3-5.6 [facility] Comment on above: Order Comment: Rachel mejia Type: BLOOD SPECIMENOrdering Facility: [facility] Address: [address] [place] [address] Result Comment: [place] Diabetes Association guidelines indicate that patients with HgbA1c in the range 5.7-6.4% are at increased risk for development of diabetes, and intervention by lifestyle modification may be beneficial. HgbA1c greater or equal to 6.5% is considered diagnostic of diabetes. Performed By: #### 5 5454-3 ####[facility] LABCLIA [id number] [place] [address] [place] LIPID PANEL, NONFASTINGon Cholesterol [Mass/Vol] 145 mg/dL Normal <200 [facility] Comment on above: Order Comment: Rachel mejia Type: BLOOD SPECIMENOrdering Facility: [facility] Address: [address] [place] [address] Result Comment: <200 mg/dL, Desirable 200-239 mg/dL, Borderline high >239 mg/dL, High Performed By: #### 2 4323-8, LIPNF ####[facility] LABCLIA [id number] [place] [address] [place] HDL CHOLESTEROL, NF 31 mg/dL Low >39 [facility] Comment on above: Order Comment: Speci men Type: BLOOD SPECIMENOrdering Facility: [facility] Address: [address] [place] [address] Result Comment: 40-5 9 mg/dL, Acceptable >59 mg/dL, High: Negative risk factor for coronary heart disease <40 mg/dL, Low: Positive risk factor for coronary heart disease Performed By: #### 2 4323-8, LIPNF ####[facility] LABCLIA [id number] [place] [address] [place] LDL CHOLESTEROL, NF Normal [facility] Comment on above: Order Comment: Speci [facility] Type: BLOOD SPECIMENOrdering Facility: [facility] Address: [address] [place] [address] Result Comment: Unab le to calculate due to increased Triglycerides. A Direct LDL Cholesterol measurement will not be performed. If clinically indicated, a fasting Basic Lipid Panel (LIPB) may be ordered. Performed By: #### 2 4323-8, LIPNF ####[facility] LABCLIA [id number] [place] [address] [place] LDL/HDL RATIO, NF Normal [facility] Comment on above: Order Comment: Speci [facility] Type: BLOOD SPECIMENOrdering Facility: [facility] Address: [address] [place] [address] Result Comment: Unab le to calculate due to elevated Triglycerides. Reference: 1. National Cholesterol Education Program ATP III Guideline At-A-Glance Quick Desk Reference: National Heart, Lung, and Blood El Portal. National Institutes of Health. 2001: NIH Publication No. 01-3305. 2. An International Atherosclerosis Society position paper: global recommendations for the management of dyslipidemia: executive summary, Atherosclerosis. 2014: 232(2):410-413. Performed By: #### 2 4323-8, LIPNF ####[facility] LABCLIA [id number] [place] [address] [place] NON HDL CHOL, NF 114 mg/dL Normal <130 [facility] Comment on above: Order Comment: Speci men Type: BLOOD SPECIMENOrdering Facility: [facility] Address: [address] [place] [address] Result Comment: <130 mg/dL, Optimal 130-159 mg/dL, Near optimal/above optimal 160-189 mg/dL, Borderline high 190-219 mg/dL, High >219 mg/dL, Very high Secondary prevention optimal non HDL Cholesterol levels are recommended to be <100 mg/dL Performed By: #### 2 4323-8, LIPNF ####[facility] LABCLIA [id number] [place] [address] [place] T CHOL/HDL RATIO NF 4.68 mg/dL Normal <5.10 [facility] Comment on above: Order Comment: Speci men Type: BLOOD SPECIMENOrdering Facility: [facility] Address: [address] [place] [address] Performed By: #### 2 4323-8, LIPNF ####[facility] LABCLIA [id number] [place] [address] [place] TRIGLYCERIDES, NF 988 mg/dL High <150 [facility] Comment on above: Order Comment: Speci men Type: BLOOD SPECIMENOrdering Facility: [facility] Address: [address] [place] [address] Result Comment: <150 mg/dL, Normal 150-199 mg/dL, Borderline high 200-499 mg/dL, High >499 mg/dL, Very high Performed By: #### 2 4323-8, LIPNF ####[facility] LABCLIA [id number] [place] [address] [place] VLDL CHOLESTEROL, NF Normal [facility] Comment on above: Order Comment: Speci men Type: BLOOD SPECIMENOrdering Facility: [facility] Address: [address] [place] [address] Result Comment: Unab le to calculate due to elevated Triglycerides. Performed By: #### 2 4323-8, LIPNF ####[facility] LABCLIA [id number] [place] [address] [place] PSA/PROSTATE SPECIFIC ANTIGE N SCREENINGon 01-15-2024 Prostate specific Ag [Mass/Vol] 0.49 ng/mL Normal <2.60 [facility] Comment on above: Order Comment: Speci men Type: BLOOD SPECIMENOrdering Facility: [facility] Address: [address] [place] [address] Result Comment: Tota l PSA test methodology used is the Electrochemiluminescence Immunoassay by [employer]. Total PSA values by differing methodologies cannot be interchanged. Performed By: #### P SAS1 ####[facility] LABCLIA [id number] [place] [address] [place] TESTOSTERONE, FREE AND TOTAL on 01-15-2024 TESTOSTERONE, FREE, S 4.72 ng/dL Normal 4.26-16.4 [facility] Comment on above: Order Comment: Speci men Type: BLOOD SPECIMENOrdering Facility: [facility] Address: [address] [place] [address] Result Comment: ADDITIONAL INFORMATION This test was developed and its performance characteristics determined by [facility] in a manner consistent with CLIA requirements. This test has not been cleared or approved by the U.S. Food and Drug Administration. Performed By: #### T FTEST ####[facility] LABCLIA [id number] [place] [address] TESTOSTERONE, TOTAL, S 122 ng/dL Low 240-950 [facility] Comment on above: Order Comment: Speci men Type: BLOOD SPECIMENOrdering Facility: [facility] Address: [address] [place] [address] Result Comment: ADDITIONAL INFORMATION Testing performed by Liquid Chromatography-Tandem Mass Spectrometry (LC-MS/MS). This test was developed and its performance characteristics determined by [facility] in a manner consistent with CLIA requirements. This test has not been cleared or approved by the U.S. Food and Drug Administration. Test Performed by: [facility] [address] [place] [address] Strategic Analyst: Ulysses Sher M.D. Ph.D.; CLIA# [id number] Performed By: #### T FTEST ####[facility] LABCLIA [id number] [place] [id number] CT CHEST WO IVCONon 11-13-19 [facility] ECG COMPLETEon 10-28-2022 Atrial Rate 74 BPM [facility] Calculated P [place] 30 degrees [facility] Calculated R [place] 19 degrees [facility] Calculated T [place] 28 degrees [facility] P-R Interval 146 ms [facility] QRS Duration 118 ms [facility] QT Interval 410 ms [facility] QTC Calculation (Bazett) 455 ms [facility] Ventricular Rate 74 [facility] Ventricular Rate : 7 4 BPM Atrial Rate : 74 BPM P-R Interval : 146 ms QRS Duration : 118 ms Q-T Interval : 410 ms QTC Calculation(Bazett) : 455 ms Calculated P [place] : 30 degrees Calculated R [place] : 19 degrees Calculated T [place] : 28 degrees NORMAL SINUS RHYTHM NON-SPECIFIC INTRA-VENTRICULAR CONDUCTION DELAY BORDERLINE ECG NO PREVIOUS ECGS AVAILABLE Confirmed by ROE MARIE M.D. ([id number]) on 10/28/2022 4:56:40 PM NAME : ROE INTERIANO PID : [id number] : 1975 Gender : Male Race : ORD : [id number] Procedure Date : Oct 28 2022 07:57:11 Edit Date : Oct 28 2022 16:56:45 Diagnosis: NORMAL SINUS RHYTHM NON-SPECIFIC INTRA-VENTRICULAR CONDUCTION DELAY BORDERLINE ECG NO PREVIOUS ECGS AVAILABLE Confirmed by ROE MARIE M.D. ([id number]) on 10/28/2022 4:56:40 PM Test Reason : Other - Specify Location : 0 : CARD Overread By : ROE MARIE M.D. Edited By : ROE MARIE M.D. Referred By : REBA VAUGHAN Acquired by : [facility] US ABD RT UPPER QUADRANTon 0 10-27-2022 [facility] XR CHEST 2V FRONTAL/LATon Radiology Result ACTIONABLE Abnormal [facility] HEMOGLOBIN A1C (POC)on 10-01 HbA1c (Bld) [Mass fraction] 9.8 % Abnormal 4.2 - 5.6 % [facility] Vital Signs Date Time Vital Sign Value Performing Clinician Faci lity 12-06-2024 14:14-0400 Body mass index (BMI) [Ratio] 41.51 kg/m2 Ean Luu DO Work Phone: [facility] 12-06-2024 14:14-0400 Body temperature 96.4 [degF] Ean Luu DO Work Phone: [facility] 12-06-2024 14:14-0400 Body weight 123.83 kg Ean Luu DO Work Phone: [facility] 12-06-2024 14:14-0400 Diastolic blood pressure 68 mm[Hg] Ean Luu DO Work Phone: [facility] 12-06-2024 14:14-0400 Heart rate 80 /min Ean Luu DO Work Phone: [facility] 12-06-2024 14:14-0400 Respiratory rate 16 /min Ean Luu DO Work Phone: [facility] 12-06-2024 14:14-0400 Systolic blood pressure 126 mm[Hg] Ean Luu DO Work Phone: [facility] 08-30-2024 15:25-0500 Body mass index (BMI) [Ratio] 41.21 kg/m2 Ean Luu DO Work Phone: [facility] 08-30-2024 15:25-0500 Body temperature 97.7 [degF] Ean Luu DO Work Phone: [facility] 08-30-2024 15:25-0500 Body weight 122.92 kg Ean Luu DO Work Phone: [facility] 08-30-2024 15:25-0500 Diastolic blood pressure 80 mm[Hg] Ean Luu DO Work Phone: [facility] 08-30-2024 15:25-0500 Heart rate 64 /min Ean Luu DO Work Phone: [facility] 08-30-2024 15:25-0500 Respiratory rate 16 /min Ean Luu DO Work Phone: [facility] 08-30-2024 15:25-0500 Systolic blood pressure 130 mm[Hg] Ean Luu DO Work Phone: [facility] 05-17-2024 15:18-0400 Diastolic blood pressure 82 mm[Hg] Ean Luu DO Work Phone: [facility] 05-17-2024 15:18-0400 Systolic blood pressure 140 mm[Hg] Ean Luu DO Work Phone: [facility] 05-17-2024 15:13-0400 Body mass index (BMI) [Ratio] 40.9 kg/m2 Ean Luu DO Work Phone: [facility] 05-17-2024 15:13-0400 Body temperature 97.81 [degF] Ean Luu DO Work Phone: [facility] 05-17-2024 15:13-0400 Body weight 122.02 kg Ean Luu DO Work Phone: [facility] 05-17-2024 15:13-0400 Heart rate 80 /min Ean Luu DO Work Phone: [facility] 05-17-2024 15:13-0400 Respiratory rate 20 /min Ean Luu DO Work Phone: [facility] 03-25-2024 13:08-0400 Body height 172.7 cm Catrina Lofton MD Work Phone: [facility] 03-25-2024 13:08-0400 Body mass index (BMI) [Ratio] 40.9 kg/m2 Catrina Lofton MD Work Phone: [facility] 03-25-2024 13:08-0400 Body weight 122.02 kg Catrina Lofton MD Work Phone: [facility] 03-25-2024 13:08-0400 Diastolic blood pressure 72 mm[Hg] Catrina Lofton MD Work Phone: [facility] 03-25-2024 13:08-0400 Heart rate 68 /min Catrina Lofton MD Work Phone: [facility] 03-25-2024 13:08-0400 Respiratory rate 20 /min Catrina Lofton MD Work Phone: [facility] 03-25-2024 13:08-0400 SaO2% (BldA) [Mass fraction] 96 % Catrina Lofton MD Work Phone: [facility] 03-25-2024 13:08-0400 Systolic blood pressure 132 mm[Hg] Catrina Lofton MD Work Phone: [facility] 02-23-2024 08:57-0400 Body height 175.7 cm Patrick Rubin MD Work Phone: [facility] 02-23-2024 08:57-0400 Body mass index (BMI) [Ratio] 39.67 kg/m2 Patrick Rubin MD Work Phone: [facility] 02-23-2024 08:57-0400 Body weight 122.47 kg Patrick Rubin MD Work Phone: [facility] 02-23-2024 08:57-0400 Diastolic blood pressure 71 mm[Hg] Patrick Rubin MD Work Phone: [facility] 02-23-2024 08:57-0400 Heart rate 74 /min Patrick Rubin MD Work Phone: [facility] 02-23-2024 08:57-0400 Systolic blood pressure 119 mm[Hg] Patrick Rubin MD Work Phone: [facility] 02-10-2024 15:28-0400 Body mass index (BMI) [Ratio] 41.11 kg/m2 Jenn Sotelo ELECTRIC MOTOR ANALYST.SOLE CONFORMING MACHINE OPERATOR Work Phone: [facility] 02-10-2024 15:28-0400 Body weight 126.92 kg Jenn Sotelo ELECTRIC MOTOR ANALYST.SOLE CONFORMING MACHINE OPERATOR Work Phone: [facility] 02-10-2024 15:28-0400 Diastolic blood pressure 62 mm[Hg] Jenn Sotelo ELECTRIC MOTOR ANALYST.SOLE CONFORMING MACHINE OPERATOR Work Phone: [facility] 02-10-2024 15:28-0400 Heart rate 72 /min Jenn Sotelo ELECTRIC MOTOR ANALYST.SOLE CONFORMING MACHINE OPERATOR Work Phone: [facility] 02-10-2024 15:28-0400 Respiratory rate 16 /min Jenn Sotelo ELECTRIC MOTOR ANALYST.SOLE CONFORMING MACHINE OPERATOR Work Phone: [facility] 02-10-2024 15:28-0400 Systolic blood pressure 124 mm[Hg] Jenn Sotelo ELECTRIC MOTOR ANALYST.SOLE CONFORMING MACHINE OPERATOR Work Phone: [facility] 01-15-2024 16:06-0400 Body weight 128.73 kg Ean Luu DO Work Phone: [facility] 01-15-2024 16:06-0400 Diastolic blood pressure 80 mm[Hg] Ean Luu DO Work Phone: [facility] 01-15-2024 16:06-0400 Heart rate 100 /min Ean Luu DO Work Phone: [facility] 01-15-2024 16:06-0400 Respiratory rate 14 /min Ean Luu DO Work Phone: [facility] 01-15-2024 16:06-0400 Systolic blood pressure 150 mm[Hg] Ean Luu DO Work Phone: [facility] 07-15-2023 15:36-0400 Body temperature 97.3 [degF] Ean Luu DO Work Phone: [facility] 07-15-2023 15:36-0400 Body weight 126.55 kg Ean Luu DO Work Phone: [facility] 07-15-2023 15:36-0400 Diastolic blood pressure 80 mm[Hg] Ean Luu DO Work Phone: [facility] 07-15-2023 15:36-0400 Heart rate 68 /min Ean Luu DO Work Phone: [facility] 07-15-2023 15:36-0400 Respiratory rate 16 /min Ean Luu DO Work Phone: [facility] 07-15-2023 15:36-0400 Systolic blood pressure 130 mm[Hg] Ean Luu DO Work Phone: [facility] 01-07-2023 18:32-0400 Body temperature 97.7 [degF] Ean Luu DO Work Phone: [facility] 01-07-2023 18:32-0400 Body weight 130.64 kg Ean Luu DO Work Phone: [facility] 01-07-2023 18:32-0400 Diastolic blood pressure 70 mm[Hg] Ean Luu DO Work Phone: [facility] 01-07-2023 18:32-0400 Heart rate 80 /min Ean Luu DO Work Phone: [facility] 01-07-2023 18:32-0400 Respiratory rate 20 /min Ean Luu DO Work Phone: [facility] 01-07-2023 18:32-0400 Systolic blood pressure 136 mm[Hg] Ean Luu DO Work Phone: [facility] 12-01-2022 02:35-0500 Body height 175.7 cm Sleep Main Work Phone: [facility] 12-01-2022 02:35-0500 Body weight 130 kg Sleep Main Work Phone: [facility] 11-24-2022 08:19-0500 Body height 175.[address] Work Phone: [facility] 11-24-2022 08:19-0500 Body weight 130.[address] Work Phone: [facility] 11-19-2022 13:53-0500 Body height 175.3 cm Margaret Felixghlin ELECTRIC MOTOR ANALYST.SOLE CONFORMING MACHINE OPERATOR Work Phone: [facility] 11-19-2022 13:53-0500 Body weight 132.54 kg Margaret Fofana ELECTRIC MOTOR ANALYST.SOLE CONFORMING MACHINE OPERATOR Work Phone: [facility] 11-19-2022 13:53-0500 Diastolic blood pressure 84 mm[Hg] Margaret Fofana ELECTRIC MOTOR ANALYST.SOLE CONFORMING MACHINE OPERATOR Work Phone: [facility] 11-19-2022 13:53-0500 Heart rate 76 /min Margaret Fofana ELECTRIC MOTOR ANALYST.SOLE CONFORMING MACHINE OPERATOR Work Phone: [facility] 11-19-2022 13:53-0500 SaO2% (BldA) [Mass fraction] 97 % Margaret Fofana ELECTRIC MOTOR ANALYST.SOLE CONFORMING MACHINE OPERATOR Work Phone: [facility] 11-19-2022 13:53-0500 Systolic blood pressure 136 mm[Hg] Margaret Felixghlin ELECTRIC MOTOR ANALYST.SOLE CONFORMING MACHINE OPERATOR Work Phone: [facility] 10-24-2022 07:59-0500 Body height 175.3 cm Reba Vaughan ELECTRIC MOTOR ANALYST.SOLE CONFORMING MACHINE OPERATOR Work Phone: [facility] 10-24-2022 07:59-0500 Body weight 130.64 kg Reba Bulow ELECTRIC MOTOR ANALYST.SOLE CONFORMING MACHINE OPERATOR Work Phone: [facility] 10-01-2022 17:00-0500 Body temperature 97.81 [degF] Ean Luu DO Work Phone: [facility] 10-01-2022 17:00-0500 Body weight 130.64 kg Ean Luu DO Work Phone: [facility] 10-01-2022 17:00-0500 Diastolic blood pressure 80 mm[Hg] Ean Luu DO Work Phone: [facility] 10-01-2022 17:00-0500 Heart rate 80 /min Ean Luu DO Work Phone: [facility] 10-01-2022 17:00-0500 Respiratory rate 16 /min Ean Luu DO Work Phone: [facility] 10-01-2022 17:00-0500 Systolic blood pressure 120 mm[Hg] Ean Luu DO Work Phone: [facility] 07-09-2022 17:32-0400 Body temperature 98.01 [degF] Ean Luu DO Work Phone: [facility] 07-09-2022 17:32-0400 Body weight 132 kg Ean Luu DO Work Phone: [facility] 07-09-2022 17:32-0400 Diastolic blood pressure 80 mm[Hg] Ean Luu DO Work Phone: [facility] 07-09-2022 17:32-0400 Heart rate 88 /min Ean Luu DO Work Phone: [facility] 07-09-2022 17:32-0400 Respiratory rate 16 /min Ean Luu DO Work Phone: [facility] 07-09-2022 17:32-0400 SaO2% (BldA) [Mass fraction] 99 % Ean Luu DO Work Phone: [facility] 07-09-2022 17:32-0400 Systolic blood pressure 138 mm[Hg] Ean Luu DO Work Phone: [facility] 12-25-2021 17:30-0400 Body temperature 96.69 [degF] Ean Luu DO Work Phone: [facility] 12-25-2021 17:30-0400 Body weight 130.64 kg Ean Luu DO Work Phone: [facility] 12-25-2021 17:30-0400 Diastolic blood pressure 70 mm[Hg] Ean Luu DO Work Phone: [facility] 12-25-2021 17:30-0400 Heart rate 88 /min Ean Luu DO Work Phone: [facility] 12-25-2021 17:30-0400 Respiratory rate 20 /min Ean Luu DO Work Phone: [facility] 12-25-2021 17:30-0400 Systolic blood pressure 124 mm[Hg] Ean Luu DO Work Phone: [facility] Encounters Encounter Date Encounter Type Care Provider Facility Start: 03-05-2025 End: 03-06-2025 Refill Ean Fayrison DO Work Phone: [facility] [place] Comment on above: Refill Request Start: 12-06-2024 End: 12-06-2024 ambulatory EAN FAYRISON Facility:[facility] Start: 12-06-2024 End: 12-06-2024 Patient encounter procedure Ean Fayrison DO Work Phone: [facility] [place] Comment on above: Uncontrolled type 2 diabetes mellitus with hyperglycemia (HCC) (Primary Dx); Hyperlipidemia with target LDL less than 100; Essential hypertension; Primary hypertension; Vitamin B12 deficiency Start: 10-24-2024 End: 10-24-2024 ambulatory Ean Luu Facility:[facility] Start: 10-10-2024 End: 10-10-2024 ambulatory Ean Luu Facility:[facility] Start: 10-05-2024 End: 10-05-2024 ambulatory Ean Luu Facility:[facility] Start: 10-05-2024 End: 10-05-2024 ambulatory Raji MCPHERSON Facility:[facility] Start: 08-30-2024 End: 08-30-2024 Patient encounter procedure Ean Fayrison DO Work Phone: [facility] [place] Comment on above: MIKKI (obstructive sle ep apnea) (Primary Dx); Uncontrolled type 2 diabetes mellitus with hyperglycemia (HCC); Primary hypertension; Hyperlipidemia with target LDL less than 100; Vitamin B12 deficiency; Ptosis, left eyelid; Fatigue, unspecified type Start: 08-30-2024 End: 08-30-2024 ambulatory EAN LUU Facility:[facility] Start: 07-14-2024 End: 07-18-2024 Refill Jennkamila Sotelo ELECTRIC MOTOR ANALYST.SOLE CONFORMING MACHINE OPERATOR Work Phone: [facility] [place] Comment on above: Refill Request Start: 05-17-2024 End: 05-17-2024 Patient encounter procedure Ean Luu DO Work Phone: [facility] [place] Comment on above: Uncontrolled type 2 diabetes mellitus with hyperglycemia (HCC) (Primary Dx); Primary hypertension; Hyperlipidemia with target LDL less than 100; MIKKI (obstructive sleep apnea); Vitamin B12 deficiency; ED (erectile dysfunction) of organic origin; Morbid obesity (HCC); Ptosis, left eyelid Start: 05-17-2024 End: 05-17-2024 ambulatory EAN LUU Facility:[facility] Start: 05-06-2024 End: 05-06-2024 ambulatory TJ BEAN Facility:[facility] Start: 05-02-2024 Telephone encounter Ean chan DO Work Phone: [facility] [place] Comment on above: Patient Question Start: 04-19-2024 Refill Mag henning PA-C Work Phone: [facility] [place] Comment on above: Refill Request Start: 03-25-2024 Telephone encounter Ean chan DO Work Phone: [facility] [place] Comment on above: Patient Update Start: 03-25-2024 End: 03-25-2024 ambulatory CATRINA LOFTON Facility:[facility] Start: 03-25-2024 End: 03-25-2024 Patient encounter procedure Catrina Lofton MD Work Phone: Endocrinology Comment on above: Low testosterone in male (Primary Dx) Start: 03-16-2024 Refill Jenn Sotelo ELECTRIC MOTOR ANALYST.SOLE CONFORMING MACHINE OPERATOR Work Phone: [facility] [place] Comment on above: Refill Request Start: 03-07-2024 End: 03-07-2024 Patient encounter procedure Patrick Rubin MD Work Phone: General Surgery Comment on above: Infected cyst of ski n (Primary Dx); Infected sebaceous cyst Refill Request Start: 03-07-2024 End: 03-07-2024 ambulatory PATRICK RUBIN Facility:[facility] Start: 02-23-2024 End: 02-23-2024 ambulatory PATRICK RUBIN Facility:[facility] Start: 02-23-2024 End: 02-23-2024 Patient encounter procedure Patrick Rubin MD Work Phone: General Surgery Comment on above: Infected sebaceous c yst (Primary Dx); Cutaneous abscess of other site Start: 02-19-2024 Refill Jennmilady Sotelo ELECTRIC MOTOR ANALYST.SOLE CONFORMING MACHINE OPERATOR Work Phone: [facility] [place] Comment on above: Refill Request Start: 02-10-2024 End: 02-10-2024 ambulatory JENN SOTELO Facility:[facility] Start: 02-10-2024 End: 02-10-2024 Patient encounter procedure Jennmilady Sotelo ELECTRIC MOTOR ANALYST.SOLE CONFORMING MACHINE OPERATOR Work Phone: [facility] [place] Comment on above: Cutaneous abscess of other site (Primary Dx); Uncontrolled type 2 diabetes mellitus with hyperglycemia (HCC); Dysuria Start: 02-03-2024 Telephone encounter Ean chan DO Work Phone: [facility] [place] Start: 01-31-2024 Refill Ean mahmood DO Work Phone: [facility] [place] Comment on above: Refill Request Start: 01-27-2024 End: 01-27-2024 ambulatory EAN LUU Facility:[facility] Start: 01-26-2024 Telephone encounter Ean chan DO Work Phone: [facility] [place] Comment on above: Results, Lab Start: 01-15-2024 End: 01-15-2024 ambulatory EAN LUU Facility:[facility] Start: 01-15-2024 End: 01-15-2024 Patient encounter procedure Ean Luu DO Work Phone: [facility] [place] Comment on above: Uncontrolled type 2 diabetes mellitus with hyperglycemia (HCC) (Primary Dx); Infected cyst of skin; Hyperlipidemia with target LDL less than 100; Essential hypertension; Vitamin B12 deficiency; ED (erectile dysfunction) of organic origin; Screening for prostate cancer Start: 01-15-2024 End: 01-15-2024 ambulatory EAN LUU Facility:[facility] Start: 01-15-2024 Refill Jenn Sotelo SOLE CONFORMING MACHINE OPERATOR Work Phone: [facility] [place] Comment on above: Refill Request Start: 08-03-2023 Refill Ean mahmood DO Work Phone: [facility] [place] Comment on above: Refill Request Start: 07-15-2023 End: 07-15-2023 Patient encounter procedure Ean Luu DO Work Phone: [facility] [place] Comment on above: Uncontrolled type 2 diabetes mellitus with hyperglycemia (HCC) (Primary Dx); Trigeminal neuralgia of left side of face; Essential hypertension; Vitamin B12 deficiency Start: 06-09-2023 Telephone encounter Ean chan DO Work Phone: [facility] [place] Start: 05-18-2023 Refill Ean mahmood DO Work Phone: [facility] [place] Comment on above: Refill Request Start: 04-16-2023 Telephone encounter Ean chan DO Work Phone: [facility] [place] Comment on above: Patient Question Start: 04-02-2023 Refill Ean mahmood DO Work Phone: [facility] [place] Comment on above: Refill Request Start: 02-26-2023 Telephone encounter Ean chan DO Work Phone: [facility] [place] Comment on above: Insurance Authorizat ion ([employer] ) Start: 02-24-2023 Telephone encounter [facility] Work Phone: Neurology Comment on above: PAP Therapy Follow U p (11/27/22 - 02/24/23 ) Start: 02-17-2023 E-mail encounter toya m caregiver Margaret Fofana APRN.SOLE CONFORMING MACHINE OPERATOR Work Phone: [facility] Start: 02-17-2023 Follow-up encounter Margaret Robles APRN.SOLE CONFORMING MACHINE OPERATOR Work Phone: Neurology Comment on above: BiPAP follow up Start: 02-02-2023 Telephone encounter Ean chan DO Work Phone: [facility] [place] Comment on above: Medication Problem Start: 01-07-2023 End: 01-07-2023 Patient encounter procedure Ean Luu DO Work Phone: [facility] [place] Comment on above: Uncontrolled type 2 diabetes mellitus with hyperglycemia (HCC) (Primary Dx); Chronic pain of both shoulders; Finger pain, left; Bilateral impacted cerumen; Hyperlipidemia with target LDL less than 100; Obesity, Class III, BMI 40-49.9 (morbid obesity) (HCC); Fatigue, unspecified type; Essential hypertension; MIKKI (obstructive sleep apnea) Start: 01-07-2023 Refill Jenn Sotelo APRN.SOLE CONFORMING MACHINE OPERATOR Work Phone: [facility] Comment on above: Refill Request Start: 01-06-2023 End: 01-06-2023 ambulatory Sathish Martínez MD Work Phone: General Surgery Comment on above: Obesity, Class III, BMI 40-49.9 (morbid obesity) (HCC) (Primary Dx); Controlled type 2 diabetes mellitus without complication, without long-term current use of insulin (HCC); MIKKI (obstructive sleep apnea) Start: 01-06-2023 End: 01-06-2023 Telemedicine consultation with patient Sathish Martínez MD Work Phone: [facility] Start: 12-29-2022 Orders Only Shara Upton MD Work Phone: Pulmonary Medicine Comment on above: Lung nodules (Primar y Dx) Start: 12-10-2022 Telephone encounter Margaret Robles APRN.SOLE CONFORMING MACHINE OPERATOR Work Phone: Neurology Comment on above: Patient Question (Hi s new CPAP machine) Start: 12-01-2022 Chart abstracting [facility] Work Phone: Neurology Start: 11-30-2022 End: 12-01-2022 ambulatory MARGARET ANDERSONAUGHLIN Facility:[facility] Start: 11-24-2022 End: 11-24-[address] Work Phone: General Surgery Comment on above: Obesity, Class III, BMI 40-49.9 (morbid obesity) (HCC) (Primary Dx); Controlled type 2 diabetes mellitus without complication, without long-term current use of insulin (HCC); Dietary counseling and surveillance Start: 11-24-2022 End: 11-24-2022 Telemedicine consultation with patient Carrie Lane RD Work Phone: [facility] Start: 11-22-2022 Orders Only Shara Upton MD Work Phone: Pulmonary Medicine Comment on above: Lung nodules (Primar y Dx) Start: 11-21-2022 Telephone encounter Ean chan DO Work Phone: Family [facility] Comment on above: Orders Start: 11-19-2022 End: 11-19-2022 Patient encounter procedure Margaret Felixghlin ELECTRIC MOTOR ANALYST.SOLE CONFORMING MACHINE OPERATOR Work Phone: Neurology Comment on above: MIKKI (obstructive sle ep apnea) (Primary Dx); Primary hypertension; Obesity, Class III, BMI 40-49.9 (morbid obesity) (HCC) Start: 11-13-2022 End: 11-13-2022 Subsequent hospital visit by physician Ct [facility] (I-Stat) Work Phone: Cat Scan Comment on above: Lung nodules [R91.8] Start: 11-04-2022 Chart abstracting [facility] Work Phone: Neurology Start: 11-04-2022 End: 11-04-2022 ambulatory Sathish Martínez MD Work Phone: General Surgery Comment on above: Body mass index 40.0 -44.9, adult (HCC) (Primary Dx); Hyperlipidemia with target LDL less than 100; Gout, unspecified cause, unspecified chronicity, unspecified site; GERD without esophagitis; Vitamin D deficiency; MIKKI (obstructive sleep apnea); Primary hypertension; Controlled type 2 diabetes mellitus without complication, without long-term current use of insulin (HCC) Start: 11-04-2022 End: 11-04-2022 Telemedicine consultation with patient Sathish Martínez MD Work Phone: [facility] Start: 10-30-2022 End: 10-30-2022 ambulatory Shara Upton MD Work Phone: Pulmonary Medicine Comment on above: Lung nodules (Primar y Dx); Morbid obesity (HCC) Start: 10-30-2022 End: 10-30-2022 Telemedicine consultation with patient Shara Upton MD Work Phone: [facility] Start: 10-28-2022 End: 10-28-2022 Orders Only Reba Vaughan APRN.SOLE CONFORMING MACHINE OPERATOR Work Phone: Endocrinology BMI Comment on above: Abnormal chest x-ray (Primary Dx) Class 3 severe obesi ty with serious comorbidity and body mass index (BMI) of 40.0 to 44.9 in adult, unspecified obesity type (HCC) [E66.01, Z68.41] Start: 10-27-2022 End: 10-27-2022 Subsequent hospital visit by physician X[facility] [place] Work Phone: Radiology Comment on above: Class 3 severe obesi ty with serious comorbidity and body mass index (BMI) of 40.0 to 44.9 in adult, unspecified obesity type (HCC) [E66.01, Z68.41] Start: 10-24-2022 End: 10-24-2022 ambulatory Reba Vaughan APRN.SOLE CONFORMING MACHINE OPERATOR Work Phone: General Surgery Comment on above: Class 3 severe obesi ty with serious comorbidity and body mass index (BMI) of 40.0 to 44.9 in adult, unspecified obesity type (HCC) (Primary Dx); MIKKI (obstructive sleep apnea); Primary hypertension; Hyperlipidemia with target LDL less than 100; GERD without esophagitis; Vitamin D deficiency; Controlled type 2 diabetes mellitus without complication, unspecified whether retirement insulin use (HCC) Start: 10-24-2022 End: 10-24-2022 Telemedicine consultation with patient Reba Vaughan APRN.SOLE CONFORMING MACHINE OPERATOR Work Phone: [facility] Start: 10-01-2022 End: 10-01-2022 Patient encounter procedure Ean Luu DO Work Phone: [facility] [place] Comment on above: Uncontrolled type 2 diabetes mellitus with hyperglycemia (HCC) (Primary Dx); Hyperlipidemia with target LDL less than 100; Carpal tunnel syndrome, bilateral; Fatigue, unspecified type; Essential hypertension; Obesity, Class III, BMI 40-49.9 (morbid obesity) (HCC) Start: 07-09-2022 End: 07-09-2022 Patient encounter procedure Ean Luu DO Work Phone: [facility] [place] Comment on above: Uncontrolled type 2 diabetes mellitus with hyperglycemia (HCC) (Primary Dx); GERD without esophagitis; Fatigue, unspecified type; Essential hypertension; Hyperlipidemia with target LDL less than 100; Vitamin D deficiency; Obesity, Class III, BMI 40-49.9 (morbid obesity) (HCC) Start: 07-09-2022 Telephone encounter Ean chan DO Work Phone: [facility] [place] Comment on above: Insurance Authorizat ion Start: 05-05-2022 Refill Ean mahmood DO Work Phone: [facility] [place] Comment on above: Refill Request Start: 01-29-2022 Refill Ean mahmood DO Work Phone: [facility] [place] Comment on above: Refill Request Start: 12-30-2021 Telephone encounter Ean chan DO Work Phone: [facility] [place] Comment on above: Results Start: 12-25-2021 End: 12-25-2021 Patient encounter procedure Ean Luu DO Work Phone: [facility] [place] Comment on above: Uncontrolled type 2 diabetes mellitus with hyperglycemia (HCC) (Primary Dx); Hyperlipidemia with target LDL less than 100; Essential hypertension; Obesity, Class III, BMI 40-49.9 (morbid obesity) (HCC); Actinic keratosis Procedures Date Procedure Procedure Detail Performing Clinician Start: 02-10-2024 Urnls dip stick/tabl et rgnt auto w/o microscopy Jennkamila Sotelo ELECTRIC MOTOR ANALYST.SOLE CONFORMING MACHINE OPERATOR Work Phone: Start: 11-13-2022 Ct thorax w/o contra st material Shara Upton MD Work Phone: Start: 10-28-2022 Ecg routine ecg w/le ast 12 lds i&r only Reba Vaughan ELECTRIC MOTOR ANALYST.SOLE CONFORMING MACHINE OPERATOR Work Phone: Start: 10-27-2022 Radiologic exam ches t 2 views Reba Vaughan ELECTRIC MOTOR ANALYST.SOLE CONFORMING MACHINE OPERATOR Work Phone: Start: 10-27-2022 Us abdominal real ti me w/image limited Reba Vaughan ELECTRIC MOTOR ANALYST.SOLE CONFORMING MACHINE OPERATOR Work Phone: Start: 10-01-2022 Hemoglobin A1c/Hemoglobin.total in Blood Ean Pritchard Jus CHISHOLM Work Phone: Start: 04-02-2022 Adult depression screening assessment Ean Luu DO Work Phone: Start: 03-11-2021 Adult depression screening assessment Ean Luu DO Work Phone: Plan of Treatment Date Care Activity Detail Author Start: 02-04-2026 Urine microalbumin profile [facility] Start: 12-06-2025 Annual PCP Team Chronic Disease Visit Annual PCP Team Chronic Disease Visit [facility] Start: 12-06-2025 BP Controlled (<130/80) BP Controlled (<130/80) [facility] Start: 08-30-2025 Annual PCP Team Chronic Disease Visit Annual PCP Team [facility] Disease [facility] [facility] Start: 08-30-2025 Covid-19 Vaccine ( season) Covid-19 Vaccine () [facility] Comment on above: Postponed from 05/29/2024 (Declined at t his time) Start: 07-14-2025 Glaucoma screening Dilated Retinal Exam [facility] Start: 06-08-2025 End: 09-07-2025 CBC panel - Blood by Automated count COMPLETE BLOOD COUNT Lab Routine Hyperlipidemia with target LDL less than 100 Expected: 06/08/2025, Expires: 09/07/2025 [facility] Comment on above: Expected: 06/08/2025, Expires: Start: 06-08-2025 End: 09-07-2025 Comprehensive metabolic 2000 panel - Serum or Plasma COMPREHENSIVE METABOLIC PANEL Lab Routine Hyperlipidemia with target LDL less than 100 Vitamin B12 deficiency Expected: 06/08/2025, Expires: 09/07/2025 [facility] Comment on above: Expected: 06/08/2025, Expires: Start: 06-08-2025 End: 09-07-2025 Hemoglobin A1c in Blood HEMOGLOBIN A1C Lab Routine Uncontrolled type 2 diabetes mellitus with hyperglycemia (HCC) Expected: 06/08/2025, Expires: 09/07/2025 [facility] Work Phone: Comment on above: Expected: 06/08/2025, Expires: Start: 06-08-2025 End: 09-07-2025 Lipid 1996 panel - Serum or Plasma LIPID PANEL BASIC Lab Routine Hyperlipidemia with target LDL less than 100 Expected: 06/08/2025, Expires: 09/07/2025 [facility] Comment on above: Expected: 06/08/2025, Expires: Start: 06-08-2025 End: 09-07-2025 Microalbumin/Creatinin e [Mass Ratio] in Urine ALBUMIN/CREATININE RATIO, URINE Lab Routine Uncontrolled type 2 diabetes mellitus with hyperglycemia (HCC) Expected: 06/08/2025, Expires: 09/07/2025 [facility] Comment on above: Expected: 06/08/2025, Expires: Start: 06-06-2025 End: 06-06-2025 Patient encounter procedure 06/06/2025 2:40 PM EDT Office Visit [facility] [address] [place] [address] Ean Luu DO [address] [place], [place] [id number] [facility] Comment on above: Physical Start: 05-29-2025 Influenza vaccination Influenza Vaccine (Season Ended) [facility] Start: 05-18-2025 Diabetic foot examination Diabetic Foot Exam [facility] Start: 05-17-2025 Annual PCP Team Chronic Disease Visit Annual PCP Team Chronic Disease Visit [facility] Start: 05-06-2025 Hepatitis B screening Urine Albumin:Creatinine Ratio [facility] Start: 05-06-2025 Hepatitis B surface antibody level LDL Cholesterol [facility] Start: 03-27-2025 Influenza vaccination Influ[facility] Vaccine [facility] Comment on above: Postponed from 05/29/2024 (Declined at t his time) Start: 02-22-2025 BP Controlled (<130/80) BP Controlled (<130/80) [facility] Start: 02-09-2025 Annual PCP Team Chronic Disease Visit Annual PCP Team Chronic Disease Visit [facility] Start: 02-09-2025 BP Controlled (<130/80) BP Controlled (<130/80) [facility] Start: 01-14-2025 Annual PCP Team Chronic Disease Visit Annual PCP Team Chronic Disease Visit [facility] Start: 01-14-2025 Covid-19 Vaccine ( season) Covid-19 Vaccine () [facility] Comment on above: Postponed from 05/29/2023 (Declined at t his time) Start: 01-14-2025 Hepatitis B surface antibody level LDL Cholesterol [facility] Start: 01-14-2025 Pneumococcal vaccination Pneumococcal Vaccine (2 of 2 - PCV) [facility] Comment on above: Postponed from 09/15/2013 (Declined at t his time) Start: 12-06-2024 End: 12-06-2024 Patient encounter procedure 12/06/2024 2:40 PM EDT Office Visit [facility] [place] [address] [place] [address] Ean Luu DO [address] [place] [address] 3 month follow up [facility] Comment on above: 3 month follow up Start: 11-06-2024 Hemoglobin A1c measurement HbA1C [facility] Start: 08-30-2024 End: 08-30-2024 Patient encounter procedure 08/30/2024 3:00 PM EST Office Visit [facility] [address] [place] [address] Ean Luu DO [address] [place] [address] 3 month follow up [facility] Comment on above: 3 month follow up Start: 08-30-2024 End: 11-29-2024 CBC W Auto Differential panel - Blood COMPLETE BLOOD COUNT AND DIFFERENTIAL Lab Routine Uncontrolled type 2 diabetes mellitus with hyperglycemia (HCC) Expected: 08/30/2024, Expires: 11/29/2024 [facility] Comment on above: Expected: 08/30/2024, Expires: Start: 08-30-2024 End: 11-29-2024 Comprehensive metabolic 2000 panel - Serum or Plasma COMPREHENSIVE METABOLIC PANEL Lab Routine Uncontrolled type 2 diabetes mellitus with hyperglycemia (HCC) Expected: 08/30/2024, Expires: 11/29/2024 [facility] Comment on above: Expected: 08/30/2024, Expires: Start: 08-30-2024 End: 11-29-2024 Hemoglobin A1c in Blood HEMOGLOBIN A1C Lab Routine Uncontrolled type 2 diabetes mellitus with hyperglycemia (HCC) Expected: 08/30/2024, Expires: 11/29/2024 [facility] Work Phone: Comment on above: Expected: 08/30/2024, Expires: Start: 07-15-2024 3 comp foot exam completed Diabetic Foot Exam [facility] Start: 07-15-2024 Annual PCP Team Chronic Disease Visit Annual PCP Team Chronic Disease Visit [facility] Start: 07-15-2024 BP Controlled (<130/80) BP Controlled (<130/80) [facility] Start: 07-15-2024 Diabetic foot examination Diabetic Foot Exam [facility] Start: 06-27-2024 Hepatitis B screening Urine Albumin:Creatinine Ratio [facility] Start: 06-27-2024 Hepatitis B surface antibody level LDL Cholesterol [facility] Start: 05-29-2024 Covid-19 Vaccine ( season) Covid-19 Vaccine ( season) [facility] Start: 05-29-2024 Influenza vaccination [facility] Start: 05-17-2024 End: 05-17-2024 Patient encounter procedure 05/17/2024 3:20 PM EDT Office Visit [facility] [address] [place] [address] Ean Luu L, DO [address] [place] [address] 3 month f/up [facility] Comment on above: 3 month f/up Start: 05-06-2024 End: 05-06-2024 ambulatory 05/06/2024 8:15 AM EDT Results Only [facility] [address] [place] [address] [facility] Start: 05-02-2024 End: 08-01-2024 Comprehensive metabolic 2000 panel - Serum or Plasma COMPREHENSIVE METABOLIC PANEL Lab Routine Hyperlipidemia with target LDL less than 100 Diabetes mellitus type 2 with ketoacidosis, uncontrolled (HCC) Expected: 05/02/2024, Expires: 08/01/2024 [facility] Comment on above: Expected: 05/02/2024, Expires: Start: 05-02-2024 End: 08-01-2024 Hemoglobin A1c in Blood HEMOGLOBIN A1C Lab Routine Hyperlipidemia with target LDL less than 100 Diabetes mellitus type 2 with ketoacidosis, uncontrolled (HCC) Expected: 05/02/2024, Expires: 08/01/2024 [facility] Work Phone: Comment on above: Expected: 05/02/2024, Expires: Start: 05-02-2024 End: 08-01-2024 Lipid 1996 panel - Serum or Plasma LIPID PANEL BASIC Lab Routine Hyperlipidemia with target LDL less than 100 Expected: 05/02/2024, Expires: 08/01/2024 [facility] Comment on above: Expected: 05/02/2024, Expires: Start: 05-02-2024 End: 08-01-2024 Microalbumin/Creatinin e [Mass Ratio] in Urine ALBUMIN/CREATININE RATIO, URINE Lab Routine Diabetes mellitus type 2 with ketoacidosis, uncontrolled (HCC) Expected: 05/02/2024, Expires: 08/01/2024 [facility] Comment on above: Expected: 05/02/2024, Expires: Start: 05-02-2024 End: 08-01-2024 Thyrotropin [Units/volume] in Serum or Plasma THYROID STIMULATING HORMONE Lab Routine Hyperlipidemia with target LDL less than 100 Expected: 05/02/2024, Expires: 08/01/2024 [facility] Comment on above: Expected: 05/02/2024, Expires: Start: 04-15-2024 Hemoglobin A1c measurement HbA1C [facility] Start: 03-27-2024 Influenza vaccination Influenza Vaccine (#1) [facility] Comment on above: Postponed from 05/29/2023 (Declined at t his time) Start: 03-25-2024 End: 03-25-2024 Patient encounter procedure 03/25/2024 1:00 PM EDT [facility] [address] [address] [place], [place] [id number] Catrina Lofton MD [address] [address] [place] [place], [place] [id number] TESTOSTERONE Endocrinology Comment on above: TESTOSTERONE Start: 03-07-2024 End: 03-07-2024 Patient encounter procedure 03/07/2024 8:00 AM EDT Office Visit General Surgery [address] [facility] [address] [place], [place] [id number] Patrick Rubin MD [address] [facility] [address] [place] [address] 10-14 day L groin abscess review General Surgery Comment on above: 10-14 day L groin abscess review Start: 02-23-2024 End: 02-23-2024 Patient encounter procedure General Surgery Comment on above: Cutaneous abscess of other site [L02.818 ] Cutaneous abscess of left groin; 01/14 PCP visit placed on Bactrim, 02/09 PCP visit and referral Start: 01-26-2024 End: 04-26-2024 TESTOSTERONE, FREE AND TOTAL TESTOSTERONE, FREE AND TOTAL Lab Routine Low testosterone Expected: 01/26/2024, Expires: 04/26/2024 [facility] Work Phone: Comment on above: Expected: 01/26/2024, Expires: 4 Start: 01-15-2024 End: 04-15-2024 Comprehensive metabolic 2000 panel - Serum or Plasma [facility] Work Phone: Comment on above: Expected: 01/15/2024, Expires: Start: 01-15-2024 End: 04-15-2024 Hemoglobin A1c in Blood [facility] Work Phone: Comment on above: Expected: 01/15/2024, Expires: 4 Start: 01-15-2024 End: 04-15-2024 LIPID PANEL, NONFASTING [facility] Work Phone: Comment on above: Expected: 01/15/2024, Expires: Start: 01-15-2024 End: 04-15-2024 PSA/PROSTATE SPECIFIC ANTIGEN SCREENING [facility] Work Phone: Comment on above: Expected: 01/15/2024, Expires: Start: 01-15-2024 End: 04-15-2024 TESTOSTERONE, FREE AND TOTAL [facility] Work Phone: Comment on above: Expected: 01/15/2024, Expires: 4 Start: 01-08-2024 ANNUAL PCP TEAM CHRONIC DISEASE VISIT ANNUAL PCP TEAM CHRONIC DISEASE VISIT [facility] Start: 10-27-2023 Hepatitis B surface antibody level LDL CHOLESTEROL [facility] Start: 10-01-2023 ANNUAL PCP TEAM CHRONIC DISEASE VISIT ANNUAL PCP TEAM CHRONIC DISEASE VISIT [facility] Start: 10-01-2023 COVID-19 VACCINE (#1) COVID-19 VACCINE (#1) [facility] Comment on above: Postponed from 1976 (Declined at t his time) Start: 09-26-2023 Hemoglobin A1c measurement HbA1C [facility] Start: 09-26-2023 Hemoglobin A1c/Hemoglobin.total in Blood HbA1C [facility] Start: 07-09-2023 ANNUAL PCP TEAM CHRONIC DISEASE VISIT ANNUAL PCP TEAM CHRONIC DISEASE VISIT [facility] Start: 07-09-2023 PNEUMOCOCCAL (2 - PCV) PNEUMOCOCCAL (2 - PCV) [facility] Comment on above: Postponed from 09/15/2013 (Declined at t his time) Start: 07-09-2023 Pneumococcal vaccination Pneumococcal Vaccine (2 - PCV) [facility] Comment on above: Postponed from 09/15/2013 (Declined at t his time) Start: 06-10-2023 End: 08-10-2023 ALBUMIN/CREAT RATIO RND UR ALBUMIN/CREAT RATIO RND UR Lab Routine Diabetes mellitus type 2 with ketoacidosis, uncontrolled (HCC) Expected: 06/10/2023, Expires: 08/10/2023 [facility] Work Phone: Comment on above: Expected: 06/10/2023, Expires: 3 Start: 06-10-2023 End: 08-10-2023 CBC W Auto Differential panel - Blood CBC + DIFF Lab Routine Hypercholesteremia Expected: 06/10/2023, Expires: 08/10/2023 [facility] Work Phone: Comment on above: Expected: 06/10/2023, Expires: 3 Start: 06-10-2023 End: 08-10-2023 Cobalamin (Vitamin B12) [Mass/volume] in Serum or Plasma VITAMIN B12 BLOOD Lab Routine Vitamin B12 deficiency Expected: 06/10/2023, Expires: 08/10/2023 [facility] Work Phone: Comment on above: Expected: 06/10/2023, Expires: 3 Start: 06-10-2023 End: 08-10-2023 Comprehensive metabolic 2000 panel - Serum or Plasma COMP METABOLIC PANEL Lab Routine Hypercholesteremia Expected: 06/10/2023, Expires: 08/10/2023 [facility] Work Phone: Comment on above: Expected: 06/10/2023, Expires: 3 Start: 06-10-2023 End: 08-10-2023 Hemoglobin A1c in Blood HGB A1C Lab Routine Diabetes mellitus type 2 with ketoacidosis, uncontrolled (HCC) Expected: 06/10/2023, Expires: 08/10/2023 [facility] Work Phone: Comment on above: Expected: 06/10/2023, Expires: 3 Start: 06-10-2023 End: 08-10-2023 Lipid 1996 panel - Serum or Plasma LIPID PANEL BASIC Lab Routine Hypercholesteremia Expected: 06/10/2023, Expires: 08/10/2023 [facility] Work Phone: Comment on above: Expected: 06/10/2023, Expires: 3 Start: 06-10-2023 End: 08-10-2023 Thyrotropin [Units/volume] in Serum or Plasma TSH BLD Lab Routine Diabetes mellitus type 2 with ketoacidosis, uncontrolled (HCC) Expected: 06/10/2023, Expires: 08/10/2023 [facility] Work Phone: Comment on above: Expected: 06/10/2023, Expires: 3 Start: 06-10-2023 End: 08-10-2023 Urate [Mass/volume] in Serum or Plasma URIC ACID BLOOD Lab Routine Gout, unspecified cause, unspecified chronicity, unspecified site Expected: 06/10/2023, Expires: 08/10/2023 [facility] Work Phone: Comment on above: Expected: 06/10/2023, Expires: 3 Start: 05-29-2023 Influenza vaccination [facility] Start: 04-02-2023 3 comp foot exam completed DIABETIC FOOT EXAM [facility] Start: 04-02-2023 Adult depression screening assessment DEPRESSION SCREENING [facility] Start: 04-02-2023 ANNUAL PCP TEAM CHRONIC DISEASE VISIT ANNUAL PCP TEAM CHRONIC DISEASE VISIT [facility] Start: 04-02-2023 BP CONTROLLED (<130/80) BP CONTROLLED (<130/80) [facility] Start: 03-27-2023 Influenza vaccination INFLUENZA (#1) [facility] Comment on above: Postponed from 05/29/2022 (Declined at t his time) Start: 02-09-2023 End: 01-28-2024 Ct thorax w/o contrast material CT CHEST WO IVCON Radiology Routine Lung nodules Expected: 02/09/2023, Expires: 01/28/2024 [facility] Work Phone: Comment on above: Expected: 02/09/2023, Expires: 4 Start: 01-25-2023 Hemoglobin A1c/Hemoglobin.total in Blood HBA1C [facility] Start: 12-30-2022 End: 03-01-2023 CBC panel - Blood by Automated count CBC Lab Routine Uncontrolled type 2 diabetes mellitus with hyperglycemia (HCC) Expected: 12/30/2022, Expires: 03/01/2023 [facility] Work Phone: Comment on above: Expected: 12/30/2022, Expires: 3 Start: 12-30-2022 End: 03-01-2023 Comprehensive metabolic 2000 panel - Serum or Plasma COMP METABOLIC PANEL Lab Routine Uncontrolled type 2 diabetes mellitus with hyperglycemia (HCC) Expected: 12/30/2022, Expires: 03/01/2023 [facility] Work Phone: Comment on above: Expected: 12/30/2022, Expires: 3 Start: 12-30-2022 End: 03-01-2023 Hemoglobin A1c in Blood HGB A1C Lab Routine Uncontrolled type 2 diabetes mellitus with hyperglycemia (HCC) Expected: 12/30/2022, Expires: 03/01/2023 [facility] Work Phone: Comment on above: Expected: 12/30/2022, Expires: 3 Start: 12-30-2022 Hemoglobin A1c/Hemoglobin.total in Blood HBA1C [facility] Start: 12-28-2022 Hepatitis B screening URINE ALBUMIN:CREATININE RATIO [facility] Start: 12-28-2022 Hepatitis B surface antibody level LDL CHOLESTEROL [facility] Start: 12-25-2022 ANNUAL PCP TEAM CHRONIC DISEASE VISIT ANNUAL PCP TEAM CHRONIC DISEASE VISIT [facility] Start: 12-25-2022 BP CONTROLLED (<130/80) BP CONTROLLED (<130/80) [facility] Start: 11-22-2022 End: 01-22-2023 FUNGAL BATTERY CF FUNGAL BATTERY CF Lab Routine Lung nodules Expected: 11/22/2022, Expires: 01/22/2023 [facility] Work Phone: Comment on above: Expected: 11/22/2022, Expires: 3 Start: 11-22-2022 End: 01-22-2023 FUNGAL BATTERY ID FUNGAL BATTERY ID Lab Routine Lung nodules Expected: 11/22/2022, Expires: 01/22/2023 [facility] Work Phone: Comment on above: Expected: 11/22/2022, Expires: 3 Start: 11-22-2022 End: 01-22-2023 HISTOPLASMA AG URINE HISTOPLASMA AG URINE Lab Routine Lung nodules Expected: 11/22/2022, Expires: 01/22/2023 [facility] Work Phone: Comment on above: Expected: 11/22/2022, Expires: 3 Start: 10-30-2022 End: 11-29-2023 Ct thorax w/o contrast material CT CHEST WO IVCON Radiology Routine Lung nodules Expected: 10/30/2022, Expires: 11/29/2023 [facility] Work Phone: Comment on above: Expected: 10/30/2022, Expires: 4 Start: 10-24-2022 End: 12-24-2022 25-hydroxyvitamin D3 [Mass/volume] in Serum or Plasma VITAMIN D 25 HYDROXY Lab Routine Class 3 severe obesity with serious comorbidity and body mass index (BMI) of 40.0 to 44.9 in adult, unspecified obesity type (HCC) Expected: 10/24/2022, Expires: 12/24/2022 [facility] Work Phone: Comment on above: Expected: 10/24/2022, Expires: 3 Start: 10-24-2022 End: 12-24-2022 CBC W Auto Differential panel - Blood CBC + DIFF Lab Routine Class 3 severe obesity with serious comorbidity and body mass index (BMI) of 40.0 to 44.9 in adult, unspecified obesity type (HCC) Expected: 10/24/2022, Expires: 12/24/2022 [facility] Work Phone: Comment on above: Expected: 10/24/2022, Expires: Start: 10-24-2022 End: 12-24-2022 Cobalamin (Vitamin B12) [Mass/volume] in Serum or Plasma VITAMIN B12 BLOOD Lab Routine Class 3 severe obesity with serious comorbidity and body mass index (BMI) of 40.0 to 44.9 in adult, unspecified obesity type (HCC) Expected: 10/24/2022, Expires: 12/24/2022 [facility] Work Phone: Comment on above: Expected: 10/24/2022, Expires: Start: 10-24-2022 End: 12-24-2022 Comprehensive metabolic 2000 panel - Serum or Plasma COMP METABOLIC PANEL Lab Routine Class 3 severe obesity with serious comorbidity and body mass index (BMI) of 40.0 to 44.9 in adult, unspecified obesity type (HCC) Expected: 10/24/2022, Expires: 12/24/2022 [facility] Work Phone: Comment on above: Expected: 10/24/2022, Expires: Start: 10-24-2022 End: 12-24-2022 Ferritin [Mass/volume] in Serum or Plasma FERRITIN BLD Lab Routine Class 3 severe obesity with serious comorbidity and body mass index (BMI) of 40.0 to 44.9 in adult, unspecified obesity type (HCC) Expected: 10/24/2022, Expires: 12/24/2022 [facility] Work Phone: Comment on above: Expected: 10/24/2022, Expires: Start: 10-24-2022 End: 12-24-2022 Folate [Mass/volume] in Serum or Plasma FOLATE SERUM Lab Routine Class 3 severe obesity with serious comorbidity and body mass index (BMI) of 40.0 to 44.9 in adult, unspecified obesity type (HCC) Expected: 10/24/2022, Expires: 12/24/2022 [facility] Work Phone: Comment on above: Expected: 10/24/2022, Expires: Start: 10-24-2022 End: 12-24-2022 Hemoglobin A1c in Blood HGB A1C Lab Routine Class 3 severe obesity with serious comorbidity and body mass index (BMI) of 40.0 to 44.9 in adult, unspecified obesity type (HCC) Expected: 10/24/2022, Expires: 12/24/2022 [facility] Work Phone: Comment on above: Expected: 10/24/2022, Expires: Start: 10-24-2022 End: 12-24-2022 Iron and Iron binding capacity panel - Serum or Plasma IRON + TIBC Lab Routine Class 3 severe obesity with serious comorbidity and body mass index (BMI) of 40.0 to 44.9 in adult, unspecified obesity type (HCC) Expected: 10/24/2022, Expires: 12/24/2022 [facility] Work Phone: Comment on above: Expected: 10/24/2022, Expires: Start: 10-24-2022 End: 12-24-2022 Lipid 1996 panel - Serum or Plasma LIPID PANEL BASIC Lab Routine Class 3 severe obesity with serious comorbidity and body mass index (BMI) of 40.0 to 44.9 in adult, unspecified obesity type (HCC) Expected: 10/24/2022, Expires: 12/24/2022 [facility] Work Phone: Comment on above: Expected: 10/24/2022, Expires: Start: 10-24-2022 End: 12-24-2022 Natriuretic peptide.B prohormone N-Terminal [Mass/volume] in Serum or Plasma NT PRO BNP Lab Routine Class 3 severe obesity with serious comorbidity and body mass index (BMI) of 40.0 to 44.9 in adult, unspecified obesity type (HCC) Expected: 10/24/2022, Expires: 12/24/2022 [facility] Work Phone: Comment on above: Expected: 10/24/2022, Expires: Start: 10-24-2022 End: 12-24-2022 NICOTINE & METAB, UR NICOTINE & METAB, UR Lab Routine Class 3 severe obesity with serious comorbidity and body mass index (BMI) of 40.0 to 44.9 in adult, unspecified obesity type (HCC) Expected: 10/24/2022, Expires: 12/24/2022 [facility] Work Phone: Comment on above: Expected: 10/24/2022, Expires: Start: 10-24-2022 End: 12-24-2022 Thyrotropin [Units/volume] in Serum or Plasma TSH BLD Lab Routine Class 3 severe obesity with serious comorbidity and body mass index (BMI) of 40.0 to 44.9 in adult, unspecified obesity type (HCC) Expected: 10/24/2022, Expires: 12/24/2022 [facility] Work Phone: Comment on above: Expected: 10/24/2022, Expires: Start: 10-24-2022 End: 12-24-2022 TOX SCREEN ROUT UR TOX SCREEN ROUT UR Lab Routine Class 3 severe obesity with serious comorbidity and body mass index (BMI) of 40.0 to 44.9 in adult, unspecified obesity type (HCC) Expected: 10/24/2022, Expires: 12/24/2022 [facility] Work Phone: Comment on above: Expected: 10/24/2022, Expires: Start: 10-24-2022 End: 12-24-2022 VITAMIN B1 (THIAMINE), WHOLE BLOOD VITAMIN B1 (THIAMINE), WHOLE BLOOD Lab Routine Class 3 severe obesity with serious comorbidity and body mass index (BMI) of 40.0 to 44.9 in adult, unspecified obesity type (HCC) Expected: 10/24/2022, Expires: 12/24/2022 [facility] Work Phone: Comment on above: Expected: 10/24/2022, Expires: 3 Start: 09-02-2022 COVID-19 VACCINE (#1) COVID-19 VACCINE (#1) [facility] Comment on above: Postponed from 1976 (Declined at t his time) Start: 09-02-2022 COVID-19 VACCINE (1) COVID-19 VACCINE (1) [facility] Comment on above: Postponed from 1981 (Declined at t his time) Start: 06-21-2022 Hepatitis B surface antibody level LDL CHOLESTEROL [facility] Start: 05-31-2022 Glaucoma screening Dilated Retinal Exam [facility] Start: 05-31-2022 Hepatitis C antibody, confirmatory test DILATED RETINAL EXAM [facility] Start: 05-29-2022 Influenza vaccination [facility] Start: 03-29-2022 Hemoglobin A1c/Hemoglobin.total in Blood HBA1C [facility] Start: 03-27-2022 Influenza vaccination INFLUENZA (#1) [facility] Comment on above: Postponed from 05/29/2021 (Declined at t his time) Start: 03-13-2022 3 comp foot exam completed DIABETIC FOOT EXAM [facility] Start: 03-11-2022 Adult depression screening assessment DEPRESSION SCREENING [facility] Start: 12-25-2021 End: 02-24-2022 ALBUMIN/CREAT RATIO RND UR ALBUMIN/CREAT RATIO RND UR Lab Routine Expected: 12/25/2021, Expires: 02/24/2022 [facility] Work Phone: Comment on above: Expected: 12/25/2021, Expires: 2 Start: 12-25-2021 End: 02-24-2022 CBC panel - Blood by Automated count CBC Lab Routine Expected: 12/25/2021, Expires: 02/24/2022 [facility] Work Phone: Comment on above: Expected: 12/25/2021, Expires: 2 Start: 12-25-2021 End: 02-24-2022 Comprehensive metabolic 2000 panel - Serum or Plasma COMP METABOLIC PANEL Lab Routine Expected: 12/25/2021, Expires: 02/24/2022 [facility] Work Phone: Comment on above: Expected: 12/25/2021, Expires: 2 Start: 12-25-2021 End: 02-24-2022 Hemoglobin A1c/Hemoglobin.total in Blood HGB A1C Lab Routine Expected: 12/25/2021 (Approximate), Expires: 02/24/2022 [facility] Work Phone: Comment on above: Expected: 12/25/2021 (Approximate), Expi res: 02/24/2022 Start: 12-25-2021 End: 02-24-2022 LIPID PANEL BASIC LIPID PANEL BASIC Lab Routine Hyperlipidemia with target LDL less than 100 Expected: 12/25/2021, Expires: 02/24/2022 [facility] Work Phone: Comment on above: Expected: 12/25/2021, Expires: 2 Start: 12-25-2021 End: 02-24-2022 Urinalysis complete panel - Urine URINALYSIS, WITH MICROSCOPIC Lab Routine Expected: 12/25/2021, Expires: 02/24/2022 [facility] Work Phone: Comment on above: Expected: 12/25/2021, Expires: 2 Start: 12-01-2021 Hemoglobin A1c/Hemoglobin.total in Blood HBA1C [facility] Start: 2021 COLOGUARD (FIT-DNA) COLOGUARD (FIT-DNA) [facility] Start: 2021 Colonoscopy COLONOSCOPY [facility] Start: 2021 COLORECTAL CANCER SCREENING COLORECTAL CANCER SCREENING [facility] Start: [address] COLONOGRAPHY [facility] Start: 2021 FECAL OCCULT BLOOD FECAL OCCULT BLOOD [facility] Start: 2021 Screening for malignant neoplasm of colon [facility] Start: 2021 SIGMOIDOSCOPY SIGMOIDOSCOPY [facility] Start: 02-13-2020 Hepatitis B screening URINE ALBUMIN:CREATININE RATIO [facility] Start: 09-15-2013 PNEUMOCOCCAL (2 - PCV) PNEUMOCOCCAL (2 - PCV) [facility] Start: 09-15-2013 Pneumococcal vaccination [facility] Start: 1995 Hepatitis B Vaccine (1 of 3 - 19+ 3-dose series) Hepatitis B Vaccine (1 of 3 - 19+ 3-dose series) [facility] Start: 1994 Depression Screening Depression Screening [facility] Start: 1994 HEPATITIS C SCREENING HEPATITIS C SCREENING [facility] Start: 1994 Hepatitis C screening Hepatitis C Screening [facility] Start: 1994 HIV SCREENING HIV SCREENING [facility] Start: 1994 HIV screening HIV Screening [facility] Start: 1976 HEPATITIS B (1 of 3 - 3-dose series) HEPATITIS B (1 of 3 - 3-dose series) [facility] Start: 1976 Hepatitis B Vaccine (1 of 3 - 3-dose series) Hepatitis B Vaccine (1 of 3 - 3-dose series) [facility] End: 10-24-2023 ECG COMPLETE ECG COMPLETE ECG Routine Class 3 severe obesity with serious comorbidity and body mass index (BMI) of 40.0 to 44.9 in adult, unspecified obesity type (HCC) 1 Occurrences starting 10/24/2022 until 10/24/2023 [facility] Work Phone: Comment on above: 1 Occurrences starting 10/24/2022 until 10/24/2023 End: 10-28-2022 ECG COMPLETE ECG COMPLETE ECG Routine Class 3 severe obesity with serious comorbidity and body mass index (BMI) of 40.0 to 44.9 in adult, unspecified obesity type (HCC) 1 Occurrences starting 10/28/2022 until 10/28/2022 [facility] Work Phone: Comment on above: 1 Occurrences starting 10/28/2022 until 10/28/2022 End: 10-24-2023 HOME SLEEP APNEA TEST (HSAT) HOME SLEEP APNEA TEST (HSAT) Procedures Routine Class 3 severe obesity with serious comorbidity and body mass index (BMI) of 40.0 to 44.9 in adult, unspecified obesity type (HCC) MIKKI (obstructive sleep apnea) 1 Occurrences starting 10/24/2022 until 10/24/2023 [facility] Work Phone: Comment on above: 1 Occurrences starting 10/24/2022 until 10/24/2023 End: 12-19-2023 PAP TITRATION PSG (CPAP, BIPAP, ASV) PAP TITRATION PSG (CPAP, BIPAP, ASV) Procedures Routine MIKKI (obstructive sleep apnea) 1 Occurrences starting 11/19/2022 until 12/19/2023 [facility] Work Phone: Comment on above: 1 Occurrences starting 11/19/2022 until 12/19/2023 End: 11-23-2023 Radiologic exam chest 2 views XR CHEST 2V FRONTAL/LAT Radiology Routine Class 3 severe obesity with serious comorbidity and body mass index (BMI) of 40.0 to 44.9 in adult, unspecified obesity type (HCC) 1 Occurrences starting 10/24/2022 until 11/23/2023 [facility] Work Phone: Comment on above: 1 Occurrences starting 10/24/2022 until 11/23/2023 TESTOSTERONE, FREE A ND TOTAL TESTOSTERONE, FREE AND TOTAL Lab Routine Low testosterone 01/27/2024 7:53 AM EDT [facility] End: 11-23-2023 Us abdominal real time w/image limited US ABD RT UPPER QUADRANT Radiology Routine Class 3 severe obesity with serious comorbidity and body mass index (BMI) of 40.0 to 44.9 in adult, unspecified obesity type (HCC) 1 Occurrences starting 10/24/2022 until 11/23/2023 [facility] Work Phone: Comment on above: 1 Occurrences starting 10/24/2022 until 11/23/2023 [facility] Immunizations Immunization Date Immunization Notes Care Provider Bry kaye 08-11-2018 influenza virus vacc ine, unspecified formulation Ean Luu DO Work Phone: [facility] 02-05-2016 tetanus toxoid, redu ana diphtheria toxoid, and acellular pertussis vaccine, adsorbed Ean Luu DO Work Phone: [facility] Work Phone: 09-15-2012 pneumococcal polysaccharide vaccine, 23 valent Ean Luu DO Work Phone: [facility] Payers Date Payer Category Payer Unknown [id number] 2024 Self-pay 2024 Unknown [id number] 2023 Private Health Insurance [id number] 2023 Unknown [id number] 2020 Medicaid [id number] 2018 Unknown [facility] [id number]-Present [phone] [address] [place] [address] WC [id number] 2018 Medicaid [employer] [id number] 2018-Present [phone] [address] [place] [address] Medicaid [id number] 2018 Medicaid [id number] Unknown [id number] Unknown [id number] Unknown [id number] Unknown [id number] Unknown [id number] Social History Date Type Detail Facility Start: 07-09-2022 End: 03-25-2024 Tobacco smoking status MIIS Never smoked tobacco [facility] Work Phone: Start: 12-25-2021 End: 08-30-2024 Alcohol intake Current non-drinker of alcohol (finding) [facility] Start: 06-26-2021 End: 12-31-2022 History SDOH Alcohol Frequency 1 [facility] Start: 06-26-2021 History SDOH Alcohol Std Drinks 98 [facility] Start: 06-26-2021 End: 12-31-2022 History SDOH Social Connections Phone 4 [facility] Start: 06-26-2021 End: 12-31-2022 History SDOH Social Connections Baptism 3 [facility] Start: 06-26-2021 End: 12-31-2022 History SDOH Physical Activity DPW 0 [facility] Start: 06-26-2021 End: 12-31-2022 History SDOH Stress 2 [facility] Start: 02-01-2020 Education 15 [facility] Start: 1975 Sex Assigned At Not on file C [facility] Start: 12-15-2021 End: 07-09-2022 Exposure to SARS-CoV-2 (event) Not sure [facility] Work Phone: Start: 07-09-2022 End: 03-25-2024 Tobacco use and exposure Smokeless tobacco non-user [facility] Start: 12-31-2022 End: 02-13-2023 History of Social function [facility] Start: 12-31-2022 End: 02-13-2023 Social connection and isolation panel [facility] Do you belong to any clubs or organizations such as jew groups, unions, fraternal or athletic groups, or school groups? Yes [facility] Are you now , , , , never or living with a partner? [facility] How often to you hav e a drink containing alcohol? Never [facility] How many standard dr inks containing alcohol do you have on a typical day? Patient does not drink [facility] How hard is it for y ou to pay for the very basics like food, housing, medical care, and heating Not very hard [facility] Do you feel stress - tense, restless, nervous, or anxious, or unable to sleep at night because your mind is troubled all the time - these days [OSQ] Only a little [facility] (I/We) worried whemaria isabel er (my/our) food would run out before (I/we) got money to buy more. Never true [facility] In the past 12 month s, was there a time when you were not able to pay the mortgage or rent on time? No [facility] How hard is it for y ou to pay for the very basics like food, housing, medical care, and heating Somewhat hard [facility] The food that (I/we) bought just didn't last, and (I/we) didn't have money to get more. DK or Refused [facility] Do you feel stress - tense, restless, nervous, or anxious, or unable to sleep at night because your mind is troubled all the time - these days [OSQ] To some extent [facility] NEGATED: Highlighted rowStart: AGUILARF History of tobacco use Passive smoker [facility] Medical Equipment Procedure Code Equipment Code Equipment Origin al Text Equipment Identifier Dates [id number], [id number], [id number] Start: 12-09-2010 End: 03-25-2024 Comment on above: Use as directed. Use as instructed Functional Status Date Assessment Result Facility 03-23-2015 Are you deaf, or do you have serious difficulty hearing No 03/23/2015 3:08 PM Sonja Soto LPN [facility] 03-23-2015 Are you blind, or do you have serious difficulty seeing, even when wearing glasses No 03/23/2015 3:08 PM Sonja Soto LPN [facility] 03-23-2015 Do you have serious difficulty walking or climbing stairs No 03/23/2015 3:08 PM Sonja Soto LPN No [facility] 03-23-2015 Do you have difficul ty dressing or bathing No 03/23/2015 3:08 PM Sonja Soto LPN [facility] 03-23-2015 Because of a physica l, mental, or emotional condition, do you have difficulty doing errands alone such as visiting a physician's office or shopping No 03/23/2015 3:08 PM Sonja Soto LPN [facility] Mental Status Date Assessment Result Facility 03-23-2015 Because of a physica l, mental, or emotional condition, do you have serious difficulty concentrating, remembering, or making decisions No 03/23/2015 3:08 PM Sonja Soto LPN No [facility] Clinical Notes 01-25-2016 to 03-06-2025 Telephone Encounter - Sarah Lua LPN - 03/06/2025 12:39 PM EDTTelephone Encounter - Sarah Lua LPN - 03/06/2025 12:39 PM Ean Jc DO - 12/06/2024 5:05 PM EDT Note Date & Type Note Facility 03-06-2025 Telephone encounter Note Prescription Refill Information The patient has been identified by name and date of : Yes Caregiver verified no other encounters exist for this prescription request: Yes Caregiver confirmed with patient/requestor that no other refills are due, in the near future, with this provider at this time: Yes The last office visit in the department: 12/06/24 Does the patient have a future office visit with this provider/department: Yes Requested Prescriptions Pending Prescriptions Disp Refills metFORMIN ER (GLUCOPHAGE XR) 750 mg 24 hr tablet 180 tablet 1 Sig: Take 2 tablets with supper. Sarah Lua LPN March 06, 2025 12:40 PM [facility] 03-06-2025 Miscellaneous Notes Prescription Refill Information The patient has been identified by name and date of : Yes Caregiver verified no other encounters exist for this prescription request: Yes Caregiver confirmed with patient/requestor that no other refills are due, in the near future, with this provider at this time: Yes The last office visit in the department: 12/06/24 Does the patient have a future office visit with this provider/department: Yes Requested Prescriptions Pending Prescriptions Disp Refills metFORMIN ER (GLUCOPHAGE XR) 750 mg 24 hr tablet 180 tablet 1 Sig: Take 2 tablets with supper. Sarah Lua LPN March 06, 2025 12:40 PM documented in this encounter [facility] 12-06-2024 Note HNO ID: [id number] Author: EAN LUU DO Service: ? Author Type: Physician Type: Progress Notes Filed: 12/06/2024 17:09 Note Text: Patient presents with: F/U 3 Month HPI: Roe Interiano is a 49 year old male who presents to the office today for review of health conditions. Concerns today: Overall he is doing well He had recent PTOSIS surgery on left upper eyelid. He is not willing to do his labs at this time Mr. Interiano has past history of diabetes. Since our last visit he denies excessive thirst or increased frequency of urination, chest pain or dyspnea , new or unusual visual symptoms, and low sugar/hypoglycemic reactions. Depression- no. Follows a diabetic diet some of the time. He is compliant with medication(s) and is tolerating med(s) without any side effects. He reports checking his glucose on a infrequent to not at all basis schedule. Patient's last HgA1C was Hemoglobin A1C (%) Date Value 05/06/2024 6.9 01/15/2024 10.9 09/02/2021 10.3 06/21/2021 9.6 Hemoglobin A1C (POCT) (%) Date Value 10/01/2022 9.8 ) Last Ophthalmology exam was within the past 12 months Mr. Interiano reports history of hyperlipidemia. Current therapy includes diet and exercise. Denies side effects of muscle weakness or achiness. His most recent lipid panels are reviewed. Cholesterol, Total (mg/dL) Date Value 05/06/2024 114 06/21/2021 144 HDL Cholesterol (mg/dL) Date Value 05/06/2024 28 06/21/2021 30 LDL Cholesterol (mg/dL) Date Value 05/06/2024 37 06/21/2021 Unable to calculate due to increased Triglycerides. See LDL-Chol, Direct. LDL Cholesterol, Nonfasting (no units) Date Value 01/15/2024 Comment: Unable to calculate due to increased Triglycerides. A Direct LDL Cholesterol measurement will not be performed. If clinically indicated, a fasting Basic Lipid Panel (LIPB) may be ordered. Triglyceride (mg/dL) Date Value 05/06/2024 247 06/21/2021 539 Mr. Interiano indicates a history of hypertension and states that he is feeling well and denies any symptoms referable to elevated blood pressure. Specifically denies headache, chest pain, palpitations, dyspnea, and peripheral edema. Patient denies any side effects of his medication(s) and is compliant with their regimen. Last 3 Encounter BP Readings: Date: BP: 12/06/2024 126/68 08/30/2024 130/80 05/17/2024 140/82 He watches his diet for sodium, low fat and low cholesterol some of the time. He does not check BP's generally. Roe gets minimal exercise. 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 Sebaceous cyst 01/25/2016 Sleep apnea Did not tolerate CPAP PAST SURGICAL HISTORY Procedure Laterality Date APPENDECTOMY EXCISION BENIGN LESIONS,SCALP,NECK,HANDS 01/18/2016 mid chest EYE SURGERY PROCEDURE 32 yrs ago pt not sure what was done REVISE MEDIAN N/CARPAL TUNNEL SURG Bilateral 2019 VASECTOMY UNI/BI SPX W/POSTOP SEMEN EXAMS Social History Tobacco Use Smoking status: Never Passive exposure: Never Smokeless tobacco: Never Vaping Use Vaping status: Never Used Substance Use Topics Alcohol use: No Drug use: No FAMILY HISTORY Problem Relation Age of Onset Lipids Mother Prostate Cancer Father Diabetes Father Glaucoma Father Diabetes Maternal Grandmother Diabetes Paternal Grandmother DVT No Family History Allergies: ALLERGIES Allergen Reactions Phentermine Other: See Comments Difficulty urinating Current Meds: atorvastatin (LIPITOR) 40 mg tablet Take 1 tablet by mouth once daily. topiramate (TOPAMAX) 50 mg tablet Take 1 tablet by mouth daily at bedtime. For weight loss lisinopril (ZESTRIL) 20 mg tablet Take 1 tablet by mouth once daily. metFORMIN ER (GLUCOPHAGE XR) 750 mg 24 hr tablet Take 2 tablets with supper. glipiZIDE (GLUCOTROL XL) 10mg 24 hr tablet Take 1 tablet by mouth once daily. With supper allopurinol (ZYLOPRIM) 300 mg tablet Take 1 tablet by mouth once daily. ONEJobviteUCH ULTRA2 METER 1 Each by VIA DEVICE route once daily. blood sugar diagnostic test strip Use with blood glucose test 2 times daily, Insulin Dep? No Lancets Use with blood glucose test 2 times daily. Insulin Dep? No alcohol swabs Use with blood glucose test 2 times daily. Insulin Dep? No famotidine (PEPCID) 40 mg tablet Take 1 tablet by mouth at bedtime as needed. For acid reflux sodium chloride-aloe vera (AYR SALINE) topical nasal gel 1 application by INTRANASAL route at bedtime as needed (nasal dryness). Review of Systems: The remainder of the review of systems is negative. PE: 12/06/ (more content not included)... [facility] 12-06-2024 History of Present illness Narrative Patient presents with: F/U 3 Month HPI: Roe Interiano is a 49 year old male who presents to the office today for review of health conditions. Concerns today: Overall he is doing well He had recent PTOSIS surgery on left upper eyelid. He is not willing to do his labs at this time Mr. Interiano has past history of diabetes. Since our last visit he denies excessive thirst or increased frequency of urination, chest pain or dyspnea , new or unusual visual symptoms, and low sugar/hypoglycemic reactions. Depression- no. Follows a diabetic diet some of the time. He is compliant with medication(s) and is tolerating med(s) without any side effects. He reports checking his glucose on a infrequent to not at all basis schedule. Patient's last HgA1C was Hemoglobin A1C (%) Date Value 05/06/2024 6.9 01/15/2024 10.9 09/02/2021 10.3 06/21/2021 9.6 Hemoglobin A1C (POCT) (%) Date Value 10/01/2022 9.8 ) Last Ophthalmology exam was within the past 12 months Mr. Interiano reports history of hyperlipidemia. Current therapy includes diet and exercise. Denies side effects of muscle weakness or achiness. His most recent lipid panels are reviewed. Cholesterol, Total (mg/dL) Date Value 05/06/2024 114 06/21/2021 144 HDL Cholesterol (mg/dL) Date Value 05/06/2024 28 06/21/2021 30 LDL Cholesterol (mg/dL) Date Value 05/06/2024 37 06/21/2021 Unable to calculate due to increased Triglycerides. See LDL-Chol, Direct. LDL Cholesterol, Nonfasting (no units) Date Value 01/15/2024 Comment: Unable to calculate due to increased Triglycerides. A Direct LDL Cholesterol measurement will not be performed. If clinically indicated, a fasting Basic Lipid Panel (LIPB) may be ordered. Triglyceride (mg/dL) Date Value 05/06/2024 247 06/21/2021 539 Mr. Interiano indicates a history of hypertension and states that he is feeling well and denies any symptoms referable to elevated blood pressure. Specifically denies headache, chest pain, palpitations, dyspnea, and peripheral edema. Patient denies any side effects of his medication(s) and is compliant with their regimen. Last 3 Encounter BP Readings: Date: BP: 12/06/2024 126/68 08/30/2024 130/80 05/17/2024 140/82 He watches his diet for sodium, low fat and low cholesterol some of the time. He does not check BP's generally. Roe gets minimal exercise. 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 Sebaceous cyst 01/25/2016 Sleep apnea Did not tolerate CPAP PAST SURGICAL HISTORY Procedure Laterality Date APPENDECTOMY EXCISION BENIGN LESIONS,SCALP,NECK,HANDS 01/18/2016 mid chest EYE SURGERY PROCEDURE 32 yrs ago pt not sure what was done REVISE MEDIAN N/CARPAL TUNNEL SURG Bilateral 2019 VASECTOMY UNI/BI SPX W/POSTOP SEMEN EXAMS Social History Tobacco Use Smoking status: Never Passive exposure: Never Smokeless tobacco: Never Vaping Use Vaping status: Never Used Substance Use Topics Alcohol use: No Drug use: No FAMILY HISTORY Problem Relation Age of Onset Lipids Mother Prostate Cancer Father Diabetes Father Glaucoma Father Diabetes Maternal Grandmother Diabetes Paternal Grandmother DVT No Family History Allergies: ALLERGIES Allergen Reactions Phentermine Other: See Comments Difficulty urinating Current Meds: atorvastatin (LIPITOR) 40 mg tablet Take 1 tablet by mouth once daily. topiramate (TOPAMAX) 50 mg tablet Take 1 tablet by mouth daily at bedtime. For weight loss lisinopril (ZESTRIL) 20 mg tablet Take 1 tablet by mouth once daily. metFORMIN ER (GLUCOPHAGE XR) 750 mg 24 hr tablet Take 2 tablets with supper. glipiZIDE (GLUCOTROL XL) 10mg 24 hr tablet Take 1 tablet by mouth once daily. With supper allopurinol (ZYLOPRIM) 300 mg tablet Take 1 tablet by mouth once daily. ONETOUCH ULTRA2 METER 1 Each by VIA DEVICE route once daily. blood sugar diagnostic test strip Use with blood glucose test 2 times daily, Insulin Dep? No Lancets Use with blood glucose test 2 times daily. Insulin Dep? No alcohol swabs Use with blood glucose test 2 times daily. Insulin Dep? No famotidine (PEPCID) 40 mg tablet Take 1 tablet by mouth at bedtime as needed. For acid reflux sodium chloride-aloe vera (AYR SALINE) topical nasal gel 1 application by INTRANASAL route at bedtime as needed (nasal dryness). Review of Systems: The remainder of the review of systems is negative. PE: 12/06/24 1414 BP: 126/68 Pulse: 80 Resp: 16 Temp: (!) 35.8 C (96.4 F) TempSrc: Temporal Weight: 123.8 kg (273 lb) Gen: A&O, NAD, non-toxic appearing, Pleasant, cooperative HEENT: NT/AC, PERRLA, EOM abnormal chronically on right, healing left upper eyelid from surgery, nares clear and patent b/l, pharynx without erythema, exudate or lesions. Uvula midline. MMM Neck: supple, No cervical LAD, no thyromegaly, no carotid bruits CV: RRR, normal S1 and S2, no murmurs, no gallops, no rubs, Pulses 2+ and symmetric in UE and LE b/l Lungs: normal respiratory effort, CTA b/l, no wheezing or rhonchi or rales Abd: soft, obese, NT, ND, +BS, no hepatosplenomegaly MS: arthritis changes of joints Neuro: CN II-XII intact b/l, strength 5/5 b/l UE and LE, DTRs 2/4 UE and LE, sensation intact. Skin: warm, dry, intact, No rashes or lesions on exposed skin. Foot exam: Monofilament wnl on right and left feet. No edema, normal pulses ASSESSMENT/PLAN: 1. Uncontrolled type 2 diabetes mellitus with hyperglycemia (HCC) - ICD9: 250.02, ICD10: E11.65 (primary diagnosis) - Uncontrolled - Improving control - Continue current medications - Blood glucose monitoring on a twice daily schedule - Counseled on healthy diet and regular exercise - Discussed need for and benefit of weight loss. BMI 41.51 kg/(m^2) - HEMOGLOBIN A1C - ALBUMIN/CREATININE RATIO, URINE 2. Hyperlipidemia with target LDL less than 100 - ICD9: 272.4, ICD10: E78.5 - Control undetermined, due for labs - Continue current medications - Counseled on healthy diet and regular exercise - ATORVASTATIN 40 MG TABLET - COMPREHENSIVE METABOLIC PANEL - LIPID PANEL BASIC - COMPLETE BLOOD COUNT 3. Essential hypertension - ICD9: 401.9, ICD10: I10 - Controlled - Continue current medications - Recommend home blood pressure monitoring, to bring results to next visit - Encouraged sodium restriction, DASH or Mediterranean diet - Recommend regular aerobic exercise - LISINOPRIL 20 MG TABLET 4. Primary hypertension - ICD9: 401.9, ICD10: I10 - Controlled - Continue current medications - Recommend home blood pressure monitoring, to bring results to next visit - Encouraged sodium restriction, DASH or Mediterranean diet - Recommend regular aerobic exercise 5. Vitamin B12 deficiency - ICD9: 266.2, ICD10: E53.8 - COMPREHENSIVE METABOLIC PANEL Ean Luu DO To ER if develops chest pain, shortness of breath, or severe worsening of symptoms. Discussed risks, benefits, alternatives, and potential side effects of medications. Patient expressed understanding and agreed with the plan. Ean Luu DO [id number] [place] [address] documented in this encounter [facility] 09-01-2024 Note HNO ID: [id number] Author: EAN LUU DO Service: ? Author Type: Physician Type: Progress Notes Filed: 09/01/2024 12:33 Note Text: Patient presents with: F/U 3 Month HPI: Roe D Jaydon is a 49 year old male who presents to the office today for review of health conditions. Concerns today: Mood, has stressors with his not wanting to work and financial stressors as well as stressors with his brother and daughter Alia. No SI or HI. 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 Mr. Interiano has past history of diabetes. Since our last visit he denies excessive thirst or increased frequency of urination, chest pain or dyspnea , new or unusual visual symptoms, and low sugar/hypoglycemic reactions. Depression- no. Follows a diabetic diet some of the time. He is compliant with medication(s) and is tolerating med(s) without any side effects. He reports checking his glucose on a once a day schedule with sugars in the <150 range. Patient's last HgA1C was Hemoglobin A1C (%) Date Value 05/06/2024 6.9 01/15/2024 10.9 09/02/2021 10.3 06/21/2021 9.6 Hemoglobin A1C (POCT) (%) Date Value 10/01/2022 9.8 ) Last Ophthalmology exam was within the past 6 months Mr. Interiano reports history of hyperlipidemia. Current therapy includes atorvastatin (Lipitor) 40 mg. Denies side effects of muscle weakness or achiness. His most recent lipid panels are reviewed. Cholesterol, Total (mg/dL) Date Value 05/06/2024 114 06/21/2021 144 HDL Cholesterol (mg/dL) Date Value 05/06/2024 28 06/21/2021 30 LDL Cholesterol (mg/dL) Date Value 05/06/2024 37 06/21/2021 Unable to calculate due to increased Triglycerides. See LDL-Chol, Direct. LDL Cholesterol, Nonfasting (no units) Date Value 01/15/2024 Comment: Unable to calculate due to increased Triglycerides. A Direct LDL Cholesterol measurement will not be performed. If clinically indicated, a fasting Basic Lipid Panel (LIPB) may be ordered. Triglyceride (mg/dL) Date Value 05/06/2024 247 06/21/2021 539 Mr. Interiano indicates a history of hypertension and states that he is feeling well and denies any symptoms referable to elevated blood pressure. Specifically denies headache, chest pain, palpitations, dyspnea, and peripheral edema. Patient denies any side effects of his medication(s) and is compliant with their regimen. Last 3 Encounter BP Readings: Date: BP: 08/30/2024 130/80 05/17/2024 140/82 03/25/2024 132/72 He watches his diet for sodium, low fat and low cholesterol some of the time. He does not check BP's generally. Roe gets minimal exercise. 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 Sebaceous cyst 01/25/2016 Sleep apnea Did not tolerate CPAP PAST SURGICAL HISTORY Procedure Laterality Date APPENDECTOMY EXCISION BENIGN LESIONS,SCALP,NECK,HANDS 01/18/2016 mid chest EYE SURGERY PROCEDURE 32 yrs ago pt not sure what was done REVISE MEDIAN N/CARPAL TUNNEL SURG Bilateral 2019 VASECTOMY UNI/BI SPX W/POSTOP SEMEN EXAMS Social History Tobacco Use Smoking status: Never Passive exposure: Never Smokeless tobacco: Never Vaping Use Vaping status: Never Used Substance Use Topics Alcohol use: No Drug use: No FAMILY HISTORY Problem Relation Age of Onset Lipids Mother Prostate Cancer Father Diabetes Father Glaucoma Father Diabetes Maternal Grandmother Diabetes Paternal Grandmother DVT No Family History Allergies: ALLERGIES Allergen Reactions Phentermine Other: See Comments Difficulty urinating Current Meds: metFORMIN ER (GLUCOPHAGE XR) 750 mg 24 hr tablet Take 2 tablets with supper. atorvastatin (LIPITOR) 40 mg tablet Take 1 tablet by mouth once daily. glipiZIDE (GLUCOTROL XL) 10mg 24 hr tablet Take 1 tablet by mouth once daily. With supper topiramate (TOPAMAX) 50 mg tablet Take 1 tablet by mouth daily at bedtime. For weight loss sildenafil (VIAGRA) 100 mg tablet Take 1 tablet by mouth once daily as needed. Take 30-60 minutes before sexual activity. allopurinol (ZYLOPRIM) 300 mg tablet Take 1 tablet by mouth once daily. MetacafeUCH ULTRA2 METER 1 Each by VIA DEVICE route once daily. blood sugar diagnostic test strip Use with blood glucose test 2 times daily, Insulin Dep? No Lancets Use with blood glucose test 2 times daily. Insulin Dep? No alcohol swabs Use with blood glucose test 2 times daily. Insulin Dep? No lisinopril (ZESTRIL) (more content not included)... [facility] 09-01-2024 History of Present illness Narrative Patient presents with: F/U 3 Month HPI: Roe Interiano is a 49 year old male who presents to the office today for review of health conditions. Concerns today: Mood, has stressors with his not wanting to work and financial stressors as well as stressors with his brother and daughter Alia. No SI or HI. 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 Mr. Interiano has past history of diabetes. Since our last visit he denies excessive thirst or increased frequency of urination, chest pain or dyspnea , new or unusual visual symptoms, and low sugar/hypoglycemic reactions. Depression- no. Follows a diabetic diet some of the time. He is compliant with medication(s) and is tolerating med(s) without any side effects. He reports checking his glucose on a once a day schedule with sugars in the <150 range. Patient's last HgA1C was Hemoglobin A1C (%) Date Value 05/06/2024 6.9 01/15/2024 10.9 09/02/2021 10.3 06/21/2021 9.6 Hemoglobin A1C (POCT) (%) Date Value 10/01/2022 9.8 ) Last Ophthalmology exam was within the past 6 months Mr. Interiano reports history of hyperlipidemia. Current therapy includes atorvastatin (Lipitor) 40 mg. Denies side effects of muscle weakness or achiness. His most recent lipid panels are reviewed. Cholesterol, Total (mg/dL) Date Value 05/06/2024 114 06/21/2021 144 HDL Cholesterol (mg/dL) Date Value 05/06/2024 28 06/21/2021 30 LDL Cholesterol (mg/dL) Date Value 05/06/2024 37 06/21/2021 Unable to calculate due to increased Triglycerides. See LDL-Chol, Direct. LDL Cholesterol, Nonfasting (no units) Date Value 01/15/2024 Comment: Unable to calculate due to increased Triglycerides. A Direct LDL Cholesterol measurement will not be performed. If clinically indicated, a fasting Basic Lipid Panel (LIPB) may be ordered. Triglyceride (mg/dL) Date Value 05/06/2024 247 06/21/2021 539 Mr. Interiano indicates a history of hypertension and states that he is feeling well and denies any symptoms referable to elevated blood pressure. Specifically denies headache, chest pain, palpitations, dyspnea, and peripheral edema. Patient denies any side effects of his medication(s) and is compliant with their regimen. Last 3 Encounter BP Readings: Date: BP: 08/30/2024 130/80 05/17/2024 140/82 03/25/2024 132/72 He watches his diet for sodium, low fat and low cholesterol some of the time. He does not check BP's generally. Roe gets minimal exercise. 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 Sebaceous cyst 01/25/2016 Sleep apnea Did not tolerate CPAP PAST SURGICAL HISTORY Procedure Laterality Date APPENDECTOMY EXCISION BENIGN LESIONS,SCALP,NECK,HANDS 01/18/2016 mid chest EYE SURGERY PROCEDURE 32 yrs ago pt not sure what was done REVISE MEDIAN N/CARPAL TUNNEL SURG Bilateral 2019 VASECTOMY UNI/BI SPX W/POSTOP SEMEN EXAMS Social History Tobacco Use Smoking status: Never Passive exposure: Never Smokeless tobacco: Never Vaping Use Vaping status: Never Used Substance Use Topics Alcohol use: No Drug use: No FAMILY HISTORY Problem Relation Age of Onset Lipids Mother Prostate Cancer Father Diabetes Father Glaucoma Father Diabetes Maternal Grandmother Diabetes Paternal Grandmother DVT No Family History Allergies: ALLERGIES Allergen Reactions Phentermine Other: See Comments Difficulty urinating Current Meds: metFORMIN ER (GLUCOPHAGE XR) 750 mg 24 hr tablet Take 2 tablets with supper. atorvastatin (LIPITOR) 40 mg tablet Take 1 tablet by mouth once daily. glipiZIDE (GLUCOTROL XL) 10mg 24 hr tablet Take 1 tablet by mouth once daily. With supper topiramate (TOPAMAX) 50 mg tablet Take 1 tablet by mouth daily at bedtime. For weight loss sildenafil (VIAGRA) 100 mg tablet Take 1 tablet by mouth once daily as needed. Take 30-60 minutes before sexual activity. allopurinol (ZYLOPRIM) 300 mg tablet Take 1 tablet by mouth once daily. ONETOUCH ULTRA2 METER 1 Each by VIA DEVICE route once daily. blood sugar diagnostic test strip Use with blood glucose test 2 times daily, Insulin Dep? No Lancets Use with blood glucose test 2 times daily. Insulin Dep? No alcohol swabs Use with blood glucose test 2 times daily. Insulin Dep? No lisinopril (ZESTRIL) 20 mg tablet Take 1 tablet by mouth once daily. famotidine (PEPCID) 40 mg tablet Take 1 tablet by mouth at bedtime as needed. For acid reflux amitriptyline (ELAVIL) 25 mg tablet Take 1-2 tablets by mouth daily at bedtime. For insomnia (Patient not taking: Reported on 03/25/2024) sodium chloride-aloe vera (AYR SALINE) topical nasal gel 1 application by INTRANASAL route at bedtime as needed (nasal dryness). Review of Systems: The remainder of the review of systems is negative. PE: 08/30/24 1525 BP: 130/80 Pulse: 64 Resp: 16 Temp: 36.5 C (97.7 F) TempSrc: Left Tympanic Weight: 122.9 kg (271 lb) Gen: A&O, NAD, non-toxic appearing, Pleasant, cooperative HEENT: NT/AC, ptosis left upper eyelid and visually impaired, nares clear and patent b/l, pharynx without erythema, exudate or lesions. MMM, Uvula midline. EACs without erythema or debris. TMs pearly jimenez with intact landmarks b/l. Neck: supple, No cervical LAD, no thyromegaly, no carotid bruits CV: RRR, normal S1 and S2, no murmurs, no gallops, no rubs, Pulses 2+ and symmetric in UE and LE b/l Lungs: normal respiratory effort, CTA b/l, no wheezing or rhonchi or rales Abd: soft, obese, NT, ND, +BS, no hepatosplenomegaly MS: FROM all 4 extremities Neuro: CN II-XII intact b/l, strength 5/5 b/l UE and LE, DTRs 2/4 UE and LE, sensation intact. Skin: warm, dry, intact, No rashes or lesions on exposed skin. Foot exam: Monofilament wnl on right and left feet. No edema, normal pulses ASSESSMENT/PLAN: 1. MIKKI (obstructive sleep apnea) - ICD9: 327.23, ICD10: G47.33 (primary diagnosis) Stable, chronic 2. Uncontrolled type 2 diabetes mellitus with hyperglycemia (HCC) - ICD9: 250.02, ICD10: E11.65 - Improving control - Continue current medications - Blood glucose monitoring on a twice daily schedule - Counseled on healthy diet and regular exercise - Discussed need for and benefit of weight loss. BMI 41.21 kg/(m^2) - METFORMIN ER 750 MG TABLET,EXTENDED RELEASE 24 HR - HEMOGLOBIN A1C - COMPREHENSIVE METABOLIC PANEL - COMPLETE BLOOD COUNT AND DIFFERENTIAL 3. Primary hypertension - ICD9: 401.9, ICD10: I10 - Controlled - Continue current medications - Recommend home blood pressure monitoring, to bring results to next visit - Encouraged sodium restriction, DASH or Mediterranean diet - Recommend regular aerobic exercise - Discussed need for and benefit of weight loss. BMI 41.21 kg/(m^2) 4. Hyperlipidemia with target LDL less than 100 - ICD9: 272.4, ICD10: E78.5 - Improving control - Continue current medications - Counseled on healthy diet and regular exercise - Discussed need for and benefit of weight loss. BMI 41.21 kg/(m^2) 5. Vitamin B12 deficiency - ICD9: 266.2, ICD10: E53.8 stable 6. Ptosis, left eyelid - ICD9: 374.30, ICD10: H02.402 F/u with specialist for surgery Okay for clearance A1c is controlled. 7. Fatigue, unspecified type - ICD9: 780.79, ICD10: R53.83 Stable, chronic Ean Luu DO To ER if develops chest pain, shortness of breath, or severe worsening of symptoms. Discussed risks, benefits, alternatives, and potential side effects of medications. Patient expressed understanding and agreed with the plan. Ean Luu DO [address] [place] [address] documented in this encounter [facility] 07-15-2024 Telephone encounter Note Prescription Refill Information The patient has been identified by name and date of : Yes Caregiver verified no other encounters exist for this prescription request: Yes Caregiver confirmed with patient/requestor that no other refills are due, in the near future, with this provider at this time: Yes The last office visit in the department: 05/17/24 Does the patient have a future office visit with this provider/department: Yes 08/30/24 Requested Prescriptions Pending Prescriptions Disp Refills atorvastatin (LIPITOR) 40 mg tablet 90 tablet 1 Sig: Take 1 tablet by mouth once daily. Suha Villalobos LPN July 15, 2024 8:00 AM [facility] 07-15-2024 Miscellaneous Notes Prescription Refill Information The patient has been identified by name and date of : Yes Caregiver verified no other encounters exist for this prescription request: Yes Caregiver confirmed with patient/requestor that no other refills are due, in the near future, with this provider at this time: Yes The last office visit in the department: 05/17/24 Does the patient have a future office visit with this provider/department: Yes 08/30/24 Requested Prescriptions Pending Prescriptions Disp Refills atorvastatin (LIPITOR) 40 mg tablet 90 tablet 1 Sig: Take 1 tablet by mouth once daily. Suha Villalobos LPN July 15, 2024 8:00 AM documented in this encounter [facility] 05-17-2024 Instructions Ean Luu DO - 05/17/2024 3:46 PM EDT Decrease dose of glipizide to 1/2 tablet with supper, down from 10 mg to 5 mg. EPSOM salt soaks- for 20 minutes in the evening with 1 cup of epsom salts. documented in this encounter [facility] 05-17-2024 Note HNO ID: [id number] Author: LUU, ENA, DO Service: ? Author Type: Physician Type: Progress Notes Filed: 05/19/2024 12:33 Note Text: Patient presents with: F/U 3 Month HPI: Roe Interiano is a 49 year old male who presents to the office today for review of health conditions. Concerns today: Sore throat started Thursday, significant last night, sinus pressure and congestion. No cough, no fevers or chills. No ear pain Ptosis upper left eyelid, hasn't made follow up appt for surgical consideration yet with [facility] ERECTILE DYSFUNCTION, has been tried on multple different medications without a lot of benefit. Was seen by Student Counsellor for opinion for testosterone replacement, not interested in surgical options at this time Mr. Interiano has past history of diabetes. Since our last visit he denies excessive thirst or increased frequency of urination, chest pain or dyspnea , new or unusual visual symptoms, and low sugar/hypoglycemic reactions. Depression- no. Follows a diabetic diet some of the time. He is compliant with medication(s) and is tolerating med(s) without any side effects. He reports checking his glucose on a once a day schedule with sugars in the <150 range. Patient's last HgA1C was Hemoglobin A1C (%) Date Value 05/06/2024 6.9 01/15/2024 10.9 09/02/2021 10.3 06/21/2021 9.6 Hemoglobin A1C (POCT) (%) Date Value 10/01/2022 9.8 ) Last Ophthalmology exam was within the past 12 months Mr. Interiano reports history of hyperlipidemia. Current therapy includes atorvastatin (Lipitor) 40 mg. Denies side effects of muscle weakness or achiness. His most recent lipid panels are reviewed. Cholesterol, Total (mg/dL) Date Value 05/06/2024 114 06/21/2021 144 HDL Cholesterol (mg/dL) Date Value 05/06/2024 28 06/21/2021 30 LDL Cholesterol (mg/dL) Date Value 05/06/2024 37 06/21/2021 Unable to calculate due to increased Triglycerides. See LDL-Chol, Direct. LDL Cholesterol, Nonfasting (no units) Date Value 01/15/2024 Comment: Unable to calculate due to increased Triglycerides. A Direct LDL Cholesterol measurement will not be performed. If clinically indicated, a fasting Basic Lipid Panel (LIPB) may be ordered. Triglyceride (mg/dL) Date Value 05/06/2024 247 06/21/2021 539 Mr. Interiano indicates a history of hypertension and states that he is feeling well and denies any symptoms referable to elevated blood pressure. Specifically denies headache, chest pain, palpitations, dyspnea, and peripheral edema. Patient denies any side effects of his medication(s) and is compliant with their regimen. Last 3 Encounter BP Readings: Date: BP: 05/17/2024 140/82 03/25/2024 132/72 02/23/2024 119/71 He watches his diet for sodium, low fat and low cholesterol some of the time. He does not check BP's generally. Roe likes to exercise by walking. 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 01/25/2016: Sebaceous cyst No date: Sleep apnea Comment: Did not tolerate CPAP PAST SURGICAL HISTORY No date: APPENDECTOMY 01/18/2016: EXCISION BENIGN LESIONS,SCALP,NECK,HANDS Comment: mid chest 32 yrs ago: EYE SURGERY PROCEDURE Comment: pt not sure what was done 2020: REVISE MEDIAN N/CARPAL TUNNEL SURG; Bilateral No date: VASECTOMY UNI/BI SPX W/POSTOP SEMEN EXAMS Social History Tobacco Use Smoking status: Never Passive exposure: Never Smokeless tobacco: Never Vaping Use Vaping status: Never Used Substance Use Topics Alcohol use: No Drug use: No FAMILY HISTORY Problem Relation Age of Onset Lipids Mother Prostate Cancer Father Diabetes Father Glaucoma Father Diabetes Maternal Grandmother Diabetes Paternal Grandmother DVT No Family History Allergies: ALLERGIES Allergen Reactions Phentermine Other: See Comments Difficulty urinating Current Meds: glipiZIDE (GLUCOTROL XL) 10mg 24 hr tablet Take 1 tablet by mouth once daily. With supper amoxicillin-clavulanate potassium (AUGMENTIN) 875-125 mg per tablet Take 1 tablet by mouth two times a day for 10 days. topiramate (TOPAMAX) 50 mg tablet Take 1 tablet by mouth daily at bedtime. For weight loss sildenafil (VIAGRA) 100 mg tablet Take 1 tablet by mouth once daily as needed. Take 30-60 minutes before sexual activity. allopurinol (ZYLOPRIM) 300 mg tablet Take 1 tablet by mouth once daily. ONETOUCH ULTRA2 METER 1 Each by VIA DEVICE route once daily. metFORMIN ER (GLUCOPHAGE XR) 750 mg 24 hr tablet Take 2 tablets with supper. blood sugar diagnostic test strip Use with blood (more content not included)... [facility] 05-17-2024 History of Present illness Narrative Patient presents with: F/U 3 Month HPI: Roe Interiano is a 49 year old male who presents to the office today for review of health conditions. Concerns today: Sore throat started Thursday, significant last night, sinus pressure and congestion. No cough, no fevers or chills. No ear pain Ptosis upper left eyelid, hasn't made follow up appt for surgical consideration yet with [facility] ERECTILE DYSFUNCTION, has been tried on multple different medications without a lot of benefit. Was seen by Student Counsellor for opinion for testosterone replacement, not interested in surgical options at this time Mr. Interiano has past history of diabetes. Since our last visit he denies excessive thirst or increased frequency of urination, chest pain or dyspnea , new or unusual visual symptoms, and low sugar/hypoglycemic reactions. Depression- no. Follows a diabetic diet some of the time. He is compliant with medication(s) and is tolerating med(s) without any side effects. He reports checking his glucose on a once a day schedule with sugars in the <150 range. Patient's last HgA1C was Hemoglobin A1C (%) Date Value 05/06/2024 6.9 01/15/2024 10.9 09/02/2021 10.3 06/21/2021 9.6 Hemoglobin A1C (POCT) (%) Date Value 10/01/2022 9.8 ) Last Ophthalmology exam was within the past 12 months Mr. Interiano reports history of hyperlipidemia. Current therapy includes atorvastatin (Lipitor) 40 mg. Denies side effects of muscle weakness or achiness. His most recent lipid panels are reviewed. Cholesterol, Total (mg/dL) Date Value 05/06/2024 114 06/21/2021 144 HDL Cholesterol (mg/dL) Date Value 05/06/2024 28 06/21/2021 30 LDL Cholesterol (mg/dL) Date Value 05/06/2024 37 06/21/2021 Unable to calculate due to increased Triglycerides. See LDL-Chol, Direct. LDL Cholesterol, Nonfasting (no units) Date Value 01/15/2024 Comment: Unable to calculate due to increased Triglycerides. A Direct LDL Cholesterol measurement will not be performed. If clinically indicated, a fasting Basic Lipid Panel (LIPB) may be ordered. Triglyceride (mg/dL) Date Value 05/06/2024 247 06/21/2021 539 Mr. Interiano indicates a history of hypertension and states that he is feeling well and denies any symptoms referable to elevated blood pressure. Specifically denies headache, chest pain, palpitations, dyspnea, and peripheral edema. Patient denies any side effects of his medication(s) and is compliant with their regimen. Last 3 Encounter BP Readings: Date: BP: 05/17/2024 140/82 03/25/2024 132/72 02/23/2024 119/71 He watches his diet for sodium, low fat and low cholesterol some of the time. He does not check BP's generally. Roe likes to exercise by walking. 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 01/25/2016: Sebaceous cyst No date: Sleep apnea Comment: Did not tolerate CPAP PAST SURGICAL HISTORY No date: APPENDECTOMY 01/18/2016: EXCISION BENIGN LESIONS,SCALP,NECK,HANDS Comment: mid chest 32 yrs ago: EYE SURGERY PROCEDURE Comment: pt not sure what was done 2020: REVISE MEDIAN N/CARPAL TUNNEL SURG; Bilateral No date: VASECTOMY UNI/BI SPX W/POSTOP SEMEN EXAMS Social History Tobacco Use Smoking status: Never Passive exposure: Never Smokeless tobacco: Never Vaping Use Vaping status: Never Used Substance Use Topics Alcohol use: No Drug use: No FAMILY HISTORY Problem Relation Age of Onset Lipids Mother Prostate Cancer Father Diabetes Father Glaucoma Father Diabetes Maternal Grandmother Diabetes Paternal Grandmother DVT No Family History Allergies: ALLERGIES Allergen Reactions Phentermine Other: See Comments Difficulty urinating Current Meds: glipiZIDE (GLUCOTROL XL) 10mg 24 hr tablet Take 1 tablet by mouth once daily. With supper amoxicillin-clavulanate potassium (AUGMENTIN) 875-125 mg per tablet Take 1 tablet by mouth two times a day for 10 days. topiramate (TOPAMAX) 50 mg tablet Take 1 tablet by mouth daily at bedtime. For weight loss sildenafil (VIAGRA) 100 mg tablet Take 1 tablet by mouth once daily as needed. Take 30-60 minutes before sexual activity. allopurinol (ZYLOPRIM) 300 mg tablet Take 1 tablet by mouth once daily. MetacafeUCH ULTRA2 METER 1 Each by VIA DEVICE route once daily. metFORMIN ER (GLUCOPHAGE XR) 750 mg 24 hr tablet Take 2 tablets with supper. blood sugar diagnostic test strip Use with blood glucose test 2 times daily, Insulin Dep? No Lancets Use with blood glucose test 2 times daily. Insulin Dep? No alcohol swabs Use with blood glucose test 2 times daily. Insulin Dep? No lisinopril (ZESTRIL) 20 mg tablet Take 1 tablet by mouth once daily. atorvastatin (LIPITOR) 40 mg tablet Take 1 tablet by mouth once daily. famotidine (PEPCID) 40 mg tablet Take 1 tablet by mouth at bedtime as needed. For acid reflux amitriptyline (ELAVIL) 25 mg tablet Take 1-2 tablets by mouth daily at bedtime. For insomnia (Patient not taking: Reported on 03/25/2024) sodium chloride-aloe vera (AYR SALINE) topical nasal gel 1 application by INTRANASAL route at bedtime as needed (nasal dryness). Review of Systems: The remainder of the review of systems is negative. PE: 05/17/24 1513 05/17/24 1518 BP: 136/80 140/82 Pulse: 80 Resp: 20 Temp: 36.6 C (97.8 F) TempSrc: Left Tympanic Weight: 122 kg (269 lb) Gen: A&O, NAD, non-toxic appearing, Pleasant, cooperative HEENT: NT/AC, PERRLA, ptosis left upper eyelid, hx of left eye deformity, nares clear and patent b/l, pharynx without erythema, exudate or lesions. Uvula midline. EACs without erythema or debris. TMs pearly jimenez with intact landmarks b/l. Neck: supple, No cervical LAD, no thyromegaly, no carotid bruits CV: RRR, normal S1 and S2, no murmurs, no gallops, no rubs, Pulses 2+ and symmetric in UE and LE b/l Lungs: normal respiratory effort, CTA b/l, no wheezing or rhonchi or rales Abd: soft, obese, NT, ND, +BS, no hepatosplenomegaly MS: FROM all 4 extremities Neuro: CN II-XII intact b/l, strength 5/5 b/l UE and LE, DTRs 2/4 UE and LE, sensation intact. Skin: warm, dry, intact, No rashes or lesions on exposed skin. Foot exam: Monofilament wnl on right and left feet. No edema, normal pulses ASSESSMENT/PLAN: 1. Uncontrolled type 2 diabetes mellitus with hyperglycemia (HCC) - ICD9: 250.02, ICD10: E11.65 (primary diagnosis) - Improving control - Continue current medications - Blood glucose monitoring on a once daily schedule - Counseled on healthy diet and regular exercise - Discussed need for and benefit of weight loss. BMI 40.90 kg/(m^2) - GLIPIZIDE ER 10 MG TABLET, EXTENDED RELEASE 24 HR 2. Primary hypertension - ICD9: 401.9, ICD10: I10 - Controlled - Continue current medications - Recommend home blood pressure monitoring, to bring results to next visit - Encouraged sodium restriction, DASH or Mediterranean diet - Recommend regular aerobic exercise - Discussed need for and benefit of weight loss. BMI 40.90 kg/(m^2) 3. Hyperlipidemia with target LDL less than 100 - ICD9: 272.4, ICD10: E78.5 - Improving control - Continue current medications - Counseled on healthy diet and regular exercise - Discussed need for and benefit of weight loss. BMI 40.90 kg/(m^2) 4. MIKKI (obstructive sleep apnea) - ICD9: 327.23, ICD10: G47.33 Need for continued weight loss 5. Vitamin B12 deficiency - ICD9: 266.2, ICD10: E53.8 Continue supplement 6. ED (erectile dysfunction) of organic origin - ICD9: 607.84, ICD10: N52.9 Consider surgical options Hasn't improved with E D medications 7. Morbid obesity (HCC) - ICD9: 278.01, ICD10: E66.01 Weight decreasing - Behavioral intervention, - [facility], and - Eat well program 8. Ptosis, left eyelid - ICD9: 374.30, ICD10: H02.402 F/u with center maker hand, rinku for surgical intervention at this time with controlled a1c Ean Luu DO To ER if develops chest pain, shortness of breath, or severe worsening of symptoms. Discussed risks, benefits, alternatives, and potential side effects of medications. Patient expressed understanding and agreed with the plan. Ean Luu DO [address] [place] [address] documented in this encounter [facility] 05-02-2024 Telephone encounter Note Patient returns call and notified that fasting lab orders have been placed. Patient will have completed prior to appointment 05/17. Jaci Silva RN [facility] 05-02-2024 Miscellaneous Notes Patient returns call and notified that fasting lab orders have been placed. Patient will have completed prior to appointment 05/17. Jaci Silva RN Called and left a voicemail for the Patient to call back and ask for a nurse to receive the providers message. Philomena Scott RN Fasting labs ordered. Tj Del Angel PA-C 05/02/2024 Patient calling to ask if he needs any labs prior to 3 month follow up appointment on 05/17? Advised PCP out of office this week. He says he is okay to wait for response. [place] Plaza RN documented in this encounter [facility] 05-02-2024 Telephone encounter Note Called and left a voicemail for the Patient to call back and ask for a nurse to receive the providers message. Philomena Scott RN [facility] 05-02-2024 Telephone encounter Note Fasting labs ordered. Tj Del Angel PA-C 05/02/2024 [facility] 05-02-2024 Telephone encounter Note Patient calling to ask if he needs any labs prior to 3 month follow up appointment on 05/17? Advised PCP out of office this week. He says he is okay to wait for response. Sahara Plaza RN [facility] 04-19-2024 Telephone encounter Note Prescription Refill Information The patient has been identified by name and date of : Yes Caregiver verified no other encounters exist for this prescription request: Yes Caregiver confirmed with patient/requestor that no other refills are due, in the near future, with this provider at this time: Yes The last office visit in the department: 02/10/2024 Does the patient have a future office visit with this provider/department: Yes Requested Prescriptions Pending Prescriptions Disp Refills allopurinol (ZYLOPRIM) 300 mg tablet 90 tablet 3 Sig: Take 1 tablet by mouth once daily. Ragini Marcum LPN April 19, 2024 10:15 AM [facility] 04-19-2024 Miscellaneous Notes Prescription Refill Information The patient has been identified by name and date of : Yes Caregiver verified no other encounters exist for this prescription request: Yes Caregiver confirmed with patient/requestor that no other refills are due, in the near future, with this provider at this time: Yes The last office visit in the department: 02/10/2024 Does the patient have a future office visit with this provider/department: Yes Requested Prescriptions Pending Prescriptions Disp Refills allopurinol (ZYLOPRIM) 300 mg tablet 90 tablet 3 Sig: Take 1 tablet by mouth once daily. Ragini Marcum LPN April 19, 2024 10:15 AM documented in this encounter [facility] 03-25-2024 Telephone encounter Note Pt informed Lisa Valles MA [facility] 03-25-2024 Miscellaneous Notes Pt informed Lisa Valles MA Would recommend focusing on weight loss until follow-up appointment with Dr. Luu in April to further discuss. Thank you, Jenn Sotelo APRN.SOLE CONFORMING MACHINE OPERATOR Patient reports he saw the dewer, and was informed his testosterone numbers are fine and he doesn't need treatment. Reports he is feeling very frustrated right now. Reports he is having energy problems, sexual problems and doesn't know what to do now. Reports he is working on weight. Please advise patient. documented in this encounter [facility] 03-25-2024 Telephone encounter Note Would recommend focusing on weight loss until follow-up appointment with Dr. Luu in April to further discuss. Thank you, Jenn Sotelo APRN.SOLE CONFORMING MACHINE OPERATOR [facility] 03-25-2024 Telephone encounter Note Patient reports he saw the dewer, and was informed his testosterone numbers are fine and he doesn't need treatment. Reports he is feeling very frustrated right now. Reports he is having energy problems, sexual problems and doesn't know what to do now. Reports he is working on weight. Please advise patient. [facility] 03-25-2024 Note HNO ID: [id number] Author: CATRINA LOFTON MD Service: ? Author Type: Physician Type: Progress Notes Filed: 03/28/2024 20:52 Note Text: [facility] Initial Clinic Visit Note Referred by: Ean Luu DO Chief complaint: Low testosterone HPI: Mr. Interiano is a 49 year old male here today at the request of his PCP for evaluation, management, and treatment of hypogonadism. 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 Anosmia:Normal Medications like KTZ, opioids,chemotherapy: No No use of anabolic steroids, estrogen, prolonged steroid use No antiepileptic use Alcohol:None Mumps/Orchitis in childhood.None No pituitary infections, surgeries, radiations, no testicular infections, radiation or surgery No fractures Losing weight by exercising and diet- could not quantity Exercise- walking about 1 to 1.5 hours every other day Exercise tolerance: no change Risk factors for Complications : History or Family history of Prostate Cancer : yes, father Race : no History of Breast Cancer : no History of MIKKI or suggestive of MIKKI: yes for several years, not using CPAP as he cannot sleep with it 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 metFORMIN ER (GLUCOPHAGE XR) 750 mg 24 hr tablet Take 2 tablets with supper. blood sugar diagnostic test strip Use with blood glucose test 2 times daily, Insulin Dep? No Lancets Use with blood glucose test 2 times daily. Insulin Dep? No alcohol swabs Use with blood glucose test 2 times daily. Insulin Dep? No lisinopril (ZESTRIL) 20 mg tablet Take 1 tablet by mouth once daily. atorvastatin (LIPITOR) 40 mg tablet Take 1 tablet by mouth once daily. glipiZIDE (GLUCOTROL XL) 10mg 24 hr tablet Take 1 tablet by mouth once daily. With supper allopurinol (ZYLOPRIM) 300 mg tablet Take 1 tablet by mouth once daily. carbamide peroxide (DEBROX) 6.5 % otic solution Use 5 Drops in both ears twice daily. (Patient taking differently: Use 5 Drops in both ears as needed (impacted cerumen).) famotidine (PEPCID) 40 mg tablet Take 1 tablet by mouth at bedtime as needed. For acid reflux sodium chloride-aloe vera (AYR SALINE) topical nasal gel 1 application by INTRANASAL route at bedtime as needed (nasal dryness). mupirocin (BACTROBAN) 2 % ointment Apply to affected area two times a day as needed (skin infection). (Patient not taking: Reported on 02/10/2024) CPAP/BIPAP/OTHER Lower Settings to fixed pressure IPAP 12, EPAP min 6, PS 6 cm H2O, suitable mask per pt preference, chin strap, head gear, humidity, tubing, lifetime supplies. G47.33 MIKKI (Patient not taking: Reported on 01/15/2024) CPAP/BIPAP/OTHER Type .CPAPSettings into a note to see current settings/supplies/DME information. (Patient not taking: Reported on 01/15/2024) diclofenac (VOLTAREN ARTHRITIS PAIN) 1 % topical gel Apply 2 g to affected area twice daily as needed. On left shoulder or 5th finger with joint pain (Patient not taking: Reported on 01/15/2024) vitamin b complex (B-COMPLEX) tab Take 1 tablet by mouth once daily. (Patient not taking: Reported on 03/25/2024) Cholecalciferol, Vitamin D3, 125 mcg (5,000 unit) cap Take 1 capsule by mouth once daily. (Patient not taking: Reported on 01/15/2024) tiZANidine (ZANAFLEX) 2 mg tablet Take 1-2 tablets by mouth at bedtime as needed. Muscle spasm, pain (Patient not taking: Reported on 03/25/2024) amitriptyline (ELAVIL) 25 mg tablet Take 1-2 tablets by mouth daily at bedtime. For insomnia (Patient (more content not included)... [facility] 03-25-2024 History of Present illness Narrative [facility] Initial Clinic Visit Note Referred by: Ean Luu DO Chief complaint: Low testosterone HPI: Mr. Interiano is a 49 year old male here today at the request of his PCP for evaluation, management, and treatment of hypogonadism. 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 Anosmia:Normal Medications like KTZ, opioids,chemotherapy: No No use of anabolic steroids, estrogen, prolonged steroid use No antiepileptic use Alcohol:None Mumps/Orchitis in childhood.None No pituitary infections, surgeries, radiations, no testicular infections, radiation or surgery No fractures Losing weight by exercising and diet- could not quantity Exercise- walking about 1 to 1.5 hours every other day Exercise tolerance: no change Risk factors for Complications : History or Family history of Prostate Cancer : yes, father Race : no History of Breast Cancer : no History of MIKKI or suggestive of MIKKI: yes for several years, not using CPAP as he cannot sleep with it 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 metFORMIN ER (GLUCOPHAGE XR) 750 mg 24 hr tablet Take 2 tablets with supper. blood sugar diagnostic test strip Use with blood glucose test 2 times daily, Insulin Dep? No Lancets Use with blood glucose test 2 times daily. Insulin Dep? No alcohol swabs Use with blood glucose test 2 times daily. Insulin Dep? No lisinopril (ZESTRIL) 20 mg tablet Take 1 tablet by mouth once daily. atorvastatin (LIPITOR) 40 mg tablet Take 1 tablet by mouth once daily. glipiZIDE (GLUCOTROL XL) 10mg 24 hr tablet Take 1 tablet by mouth once daily. With supper allopurinol (ZYLOPRIM) 300 mg tablet Take 1 tablet by mouth once daily. carbamide peroxide (DEBROX) 6.5 % otic solution Use 5 Drops in both ears twice daily. (Patient taking differently: Use 5 Drops in both ears as needed (impacted cerumen).) famotidine (PEPCID) 40 mg tablet Take 1 tablet by mouth at bedtime as needed. For acid reflux sodium chloride-aloe vera (AYR SALINE) topical nasal gel 1 application by INTRANASAL route at bedtime as needed (nasal dryness). mupirocin (BACTROBAN) 2 % ointment Apply to affected area two times a day as needed (skin infection). (Patient not taking: Reported on 02/10/2024) CPAP/BIPAP/OTHER Lower Settings to fixed pressure IPAP 12, EPAP min 6, PS 6 cm H2O, suitable mask per pt preference, chin strap, head gear, humidity, tubing, lifetime supplies. G47.33 MIKKI (Patient not taking: Reported on 01/15/2024) CPAP/BIPAP/OTHER Type .CPAPSettings into a note to see current settings/supplies/DME information. (Patient not taking: Reported on 01/15/2024) diclofenac (VOLTAREN ARTHRITIS PAIN) 1 % topical gel Apply 2 g to affected area twice daily as needed. On left shoulder or 5th finger with joint pain (Patient not taking: Reported on 01/15/2024) vitamin b complex (B-COMPLEX) tab Take 1 tablet by mouth once daily. (Patient not taking: Reported on 03/25/2024) Cholecalciferol, Vitamin D3, 125 mcg (5,000 unit) cap Take 1 capsule by mouth once daily. (Patient not taking: Reported on 01/15/2024) tiZANidine (ZANAFLEX) 2 mg tablet Take 1-2 tablets by mouth at bedtime as needed. Muscle spasm, pain (Patient not taking: Reported on 03/25/2024) amitriptyline (ELAVIL) 25 mg tablet Take 1-2 tablets by mouth daily at bedtime. For insomnia (Patient not taking: Reported on 03/25/2024) Tadalafil (CIALIS) 5 mg tablet Take 1 tablet by mouth as needed (sexual dysfunction). (Patient not taking: Reported on 03/25/2024) No current facility-administered medications on file prior to visit. ALLERGIES Allergen Reactions Phentermine Other: See Comments Difficulty urinating FAMILY HISTORY Problem Relation Age of Onset Lipids Mother Prostate Cancer Father Diabetes Father Glaucoma Father Diabetes Maternal Grandmother Diabetes Paternal Grandmother DVT No Family History Vitals: BP 132/72 (BP Site: Right Arm, BP Position: Sitting, BP Cuff Size: Large Adult) Pulse 68 Resp 20 Ht 172.7 cm (5' 8) Wt 122 kg (269 lb) SpO2 96% BMI 40.90 kg/m Body mass index is 40.9 kg/m . Physical Exam: General: WNWD, NAD, obese body habitus Extremities proportion : normal Eyes: conjunctivae are pink, and moist. No exopthalmos, lag, or stare Neck: The thyroid is normal in size, nontender, no cervical or supraclavicular adenopathy Cardiovascular: regular rate Respiratory: full sounds bilaterally with normal expansion Gastrointestinal: soft, non-tender, normal bowel sounds, no hepatosplenomegaly Musculoskeletal: normal muscle mass, no lower extremity swelling Spine: no kyphosis present, no lordosis present Skin: normal, no rashes present Neurologic:Visual Field defects DATA REVIEW: Labs: Latest Ref Rng 01/15/2024 01/27/2024 WBC 3.70 - 11.00 k/uL 8.96 RBC 4.20 - 6.00 m/uL 5.70 Hemoglobin 13.0 - 17.0 g/dL 15.7 Hematocrit 39.0 - 51.0 % 46.3 MCV 80.0 - 100.0 fL 81.2 MCH 26.0 - 34.0 pg 27.5 MCHC 30.5 - 36.0 g/dL 33.9 RDW-CV 11.5 - 15.0 % 14.1 Platelet Count 150 - 400 k/uL 270 MPV 9.0 - 12.7 fL 10.4 Neut% % 72.7 Abs Neut (ANC) 1.45 - 7.50 k/uL 6.52 Lymph% % 16.2 Abs Lymph 1.00 - 4.00 k/uL 1.45 Edwards% % 6.3 Abs Edwards <0.87 k/uL 0.56 Eosin% % 3.6 Abs Eosin <0.46 k/uL 0.32 Baso% % 1.0 Abs Baso <0.11 k/uL 0.09 Immature Gran % % 0.2 IMMATURE GRANS (ABS) <0.10 k/uL <0.03 NRBC /100 WBC 0.0 Absolute nRBC <0.01 k/uL <0.01 DTYPE Auto Testosterone Free 4.26 - 16.4 ng/dL 4.72 8.50 Testosterone 240 - 950 ng/dL 122 (L) 200 (L) Hemoglobin A1C 4.3 - 5.6 % 10.9 (H) Estimated Average Glucose mg/dL 266 PSA Screening <2.60 ng/mL 0.49 Legend: (L) Low (H) High Assessment and Plan: Felipe Interiano is a 49 year old male who presents for evaluation of hypogonadism, after referral by his primary care physician. #Low Total Testosterone 2/2 low normal SHBG from obesity, untreated MIKKI Reviewed diurnal variation of testosterone hormone and that testosterone levels are expected to be at their peak at 8 am in the morning Instructed patient hypogonadism is diagnosed when two fasting 8-10 AM total and free testosterone levels are below the reference range Reviewed the role of binding globulins and testosterone --low binding globulins possibly due to obesity can result in low total testosterone levels but normal Free T levels Reviewed that his free T is within normal and does not indicate need for TRT initiation Patient is not happy after hearing this and reports that he thought he would get help here for his symptoms, but was not a useful visit. I again emphasized that his free/active testosterone levels are within normal, and the reason for low total has been explained once again. I discussed it is is important to target this patients obesity, suspected MIKKI, and stress as ways to improve his SHBG and in turn total testosterone levels. He can possibly do labs with his PCP if the above causes of low T can be treated I spent a total of 55 minutes on the date of the service which included preparing to see the patient, [id number] patient care, completing clinical documentation, obtaining and/or reviewing separately obtained history, performing a medically appropriate examination, counseling and educating the patient/family/caregiver, ordering medications, tests, or procedures, and independently interpreting results (not separately reported). Catrina Lofton MD Endocrinology Associate Staff [facility] Endocrinology and Metabolism [place] [phone] documented in this encounter [facility] 03-16-2024 Telephone encounter Note JACE-02/10/24 Labs-01/27/24Jul-05/17/24 Suha Villalobos LPN [facility] 03-16-2024 Miscellaneous Notes JACE-02/10/24 Labs-01/27/24Jul-05/17/24 Suha Villalobos LPN documented in this encounter [facility] 03-07-2024 Telephone encounter Note Prescription Refill Information The patient has been identified by name and date of : Yes Caregiver verified no other encounters exist for this prescription request: Yes Caregiver confirmed with patient/requestor that no other refills are due, in the near future, with this provider at this time: Yes The last office visit in the department: 02-10-24 Does the patient have a future office visit with this provider/department: Yes Patient reports he has not checked his BS's at home in a long time, and wants to get his DM under control. Requested Prescriptions Pending Prescriptions Disp Refills blood sugar diagnostic test strip 200 Strip 5 Sig: Use with blood glucose test 2 times daily, Insulin Dep? No Lancets 200 Each 5 Sig: Use with blood glucose test 2 times daily. Insulin Dep? No alcohol swabs 200 Each 5 Sig: Use with blood glucose test 2 times daily. Insulin Dep? No Blood-Glucose Meter monitoring kit 1 Each 0 Sig: Glucose Meter of Choice - Kit - Dx: Type 2 DM - Uncontrolled E11.65 Mag Chambers RN March 07, 2024 9:59 AM [facility] 03-07-2024 Miscellaneous Notes Prescription Refill Information The patient has been identified by name and date of : Yes Caregiver verified no other encounters exist for this prescription request: Yes Caregiver confirmed with patient/requestor that no other refills are due, in the near future, with this provider at this time: Yes The last office visit in the department: 02-10-24 Does the patient have a future office visit with this provider/department: Yes Patient reports he has not checked his BS's at home in a long time, and wants to get his DM under control. Requested Prescriptions Pending Prescriptions Disp Refills blood sugar diagnostic test strip 200 Strip 5 Sig: Use with blood glucose test 2 times daily, Insulin Dep? No Lancets 200 Each 5 Sig: Use with blood glucose test 2 times daily. Insulin Dep? No alcohol swabs 200 Each 5 Sig: Use with blood glucose test 2 times daily. Insulin Dep? No Blood-Glucose Meter monitoring kit 1 Each 0 Sig: Glucose Meter of Choice - Kit - Dx: Type 2 DM - Uncontrolled E11.65 Mag Thony Chambers RN March 07, 2024 9:59 AM documented in this encounter [facility] 03-07-2024 Note HNO ID: [id number] Author: PATRICK RUBIN MD Service: ? Author Type: Physician Type: Progress Notes Filed: 03/07/2024 08:20 Note Text: POST OP Patient presents with: Follow Up: 10-14 day L groin abscess HPI: doing well, concerned about new area that drained a couple days ago, no f/c, no pain, no drainage today VITALS: There were no vitals taken for this visit. MEDS: lisinopril (ZESTRIL) 20 mg tablet Take 1 tablet by mouth once daily. atorvastatin (LIPITOR) 40 mg tablet Take 1 tablet by mouth once daily. mupirocin (BACTROBAN) 2 % ointment Apply to affected area two times a day as needed (skin infection). (Patient not taking: Reported on 02/10/2024) metFORMIN ER (GLUCOPHAGE XR) 750 mg 24 hr tablet Take 2 tablets with supper. glipiZIDE (GLUCOTROL XL) 10mg 24 hr tablet Take 1 tablet by mouth once daily. With supper allopurinol (ZYLOPRIM) 300 mg tablet Take 1 tablet by mouth once daily. CPAP/BIPAP/OTHER Lower Settings to fixed pressure IPAP 12, EPAP min 6, PS 6 cm H2O, suitable mask per pt preference, chin strap, head gear, humidity, tubing, lifetime supplies. G47.33 MIKKI (Patient not taking: Reported on 01/15/2024) CPAP/BIPAP/OTHER Type .CPAPSettings into a note to see current settings/supplies/DME information. (Patient not taking: Reported on 01/15/2024) diclofenac (VOLTAREN ARTHRITIS PAIN) 1 % topical gel Apply 2 g to affected area twice daily as needed. On left shoulder or 5th finger with joint pain (Patient not taking: Reported on 01/15/2024) carbamide peroxide (DEBROX) 6.5 % otic solution Use 5 Drops in both ears twice daily. famotidine (PEPCID) 40 mg tablet Take 1 tablet by mouth at bedtime as needed. For acid reflux vitamin b complex (B-COMPLEX) tab Take 1 tablet by mouth once daily. Cholecalciferol, Vitamin D3, 125 mcg (5,000 unit) cap Take 1 capsule by mouth once daily. (Patient not taking: Reported on 01/15/2024) tiZANidine (ZANAFLEX) 2 mg tablet Take 1-2 tablets by mouth at bedtime as needed. Muscle spasm, pain amitriptyline (ELAVIL) 25 mg tablet Take 1-2 tablets by mouth daily at bedtime. For insomnia Tadalafil (CIALIS) 5 mg tablet Take 1 tablet by mouth as needed (sexual dysfunction). sodium chloride-aloe vera (AYR SALINE) topical nasal gel 1 application by INTRANASAL route at bedtime as needed (nasal dryness). Lancets (FREESTYLE LANCETS) [facility] lancets Use as instructed blood sugar diagnostic (FREESTYLE TEST) Misc test strip Use as directed. PHYSICAL EXAM: Left mons IANDD site healing well, 3mm opening with some proteinaceous deposit cleaned, no signs of infection or new abscess IMPRESSION: Post op course: expected I have explained to Mr. Interiano that he may return to normal activity with no restrictions. I have encouraged him to contact me at any time with any questions or concerns that may arise. Follow up: prn, encouraged following diabetic diet and monitoring blood sugars Patrick Rubin MD 03/07/2024 8:11 AM [facility] 03-07-2024 History of Present illness Narrative POST OP Patient presents with: Follow Up: 10-14 day L groin abscess HPI: doing well, concerned about new area that drained a couple days ago, no f/c, no pain, no drainage today VITALS: There were no vitals taken for this visit. MEDS: lisinopril (ZESTRIL) 20 mg tablet Take 1 tablet by mouth once daily. atorvastatin (LIPITOR) 40 mg tablet Take 1 tablet by mouth once daily. mupirocin (BACTROBAN) 2 % ointment Apply to affected area two times a day as needed (skin infection). (Patient not taking: Reported on 02/10/2024) metFORMIN ER (GLUCOPHAGE XR) 750 mg 24 hr tablet Take 2 tablets with supper. glipiZIDE (GLUCOTROL XL) 10mg 24 hr tablet Take 1 tablet by mouth once daily. With supper allopurinol (ZYLOPRIM) 300 mg tablet Take 1 tablet by mouth once daily. CPAP/BIPAP/OTHER Lower Settings to fixed pressure IPAP 12, EPAP min 6, PS 6 cm H2O, suitable mask per pt preference, chin strap, head gear, humidity, tubing, lifetime supplies. G47.33 MIKKI (Patient not taking: Reported on 01/15/2024) CPAP/BIPAP/OTHER Type .CPAPSettings into a note to see current settings/supplies/DME information. (Patient not taking: Reported on 01/15/2024) diclofenac (VOLTAREN ARTHRITIS PAIN) 1 % topical gel Apply 2 g to affected area twice daily as needed. On left shoulder or 5th finger with joint pain (Patient not taking: Reported on 01/15/2024) carbamide peroxide (DEBROX) 6.5 % otic solution Use 5 Drops in both ears twice daily. famotidine (PEPCID) 40 mg tablet Take 1 tablet by mouth at bedtime as needed. For acid reflux vitamin b complex (B-COMPLEX) tab Take 1 tablet by mouth once daily. Cholecalciferol, Vitamin D3, 125 mcg (5,000 unit) cap Take 1 capsule by mouth once daily. (Patient not taking: Reported on 01/15/2024) tiZANidine (ZANAFLEX) 2 mg tablet Take 1-2 tablets by mouth at bedtime as needed. Muscle spasm, pain amitriptyline (ELAVIL) 25 mg tablet Take 1-2 tablets by mouth daily at bedtime. For insomnia Tadalafil (CIALIS) 5 mg tablet Take 1 tablet by mouth as needed (sexual dysfunction). sodium chloride-aloe vera (AYR SALINE) topical nasal gel 1 application by INTRANASAL route at bedtime as needed (nasal dryness). Lancets (FREESTYLE LANCETS) Misc lancets Use as instructed blood sugar diagnostic (FREESTYLE TEST) Misc test strip Use as directed. PHYSICAL EXAM: Left mons I&D site healing well, 3mm opening with some proteinaceous deposit cleaned, no signs of infection or new abscess IMPRESSION: Post op course: expected I have explained to Mr. Interiano that he may return to normal activity with no restrictions. I have encouraged him to contact me at any time with any questions or concerns that may arise. Follow up: prn, encouraged following diabetic diet and monitoring blood sugars Patrick Rubin MD 03/07/2024 8:11 AM documented in this encounter [facility] 02-23-2024 Note HNO ID: [id number] Author: PATRICK RUBIN MD Service: ? Author Type: Physician Type: Progress Notes Filed: 02/23/2024 18:46 Note Text: Incision and drainage Indication- 48 y/o wm with DM presents for eval of abscess of left side of mons pubis. Initially began in November, started as small pimple, enlarged, became red and painful and then spontaneously drained, seen by PCP treated with bactrim and bactroban. Some improvement but no resolution, yesterday once again became sore and swollen, no recent drg. No f/c. No previous similar episodes. Has DM, hasn;t checked his sugars in a while, had blood work about 1 month ago. Last HgbA1c 01/15/2024 - was 10.9.long h/o poorly controlled dm as in past poor dietary choices. 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 atorvastatin (LIPITOR) 40 mg tablet Take 1 tablet by mouth once daily. mupirocin (BACTROBAN) 2 % ointment Apply to affected area two times a day as needed (skin infection). (Patient not taking: Reported on 02/10/2024) metFORMIN ER (GLUCOPHAGE XR) 750 mg 24 hr tablet Take 2 tablets with supper. glipiZIDE (GLUCOTROL XL) 10mg 24 hr tablet Take 1 tablet by mouth once daily. With supper allopurinol (ZYLOPRIM) 300 mg tablet Take 1 tablet by mouth once daily. CPAP/BIPAP/OTHER Lower Settings to fixed pressure IPAP 12, EPAP min 6, PS 6 cm H2O, suitable mask per pt preference, chin strap, head gear, humidity, tubing, lifetime supplies. G47.33 MIKKI (Patient not taking: Reported on 01/15/2024) CPAP/BIPAP/OTHER Type .CPAPSettings into a note to see current settings/supplies/DME information. (Patient not taking: Reported on 01/15/2024) diclofenac (VOLTAREN ARTHRITIS PAIN) 1 % topical gel Apply 2 g to affected area twice daily as needed. On left shoulder or 5th finger with joint pain (Patient not taking: Reported on 01/15/2024) carbamide peroxide (DEBROX) 6.5 % otic solution Use 5 Drops in both ears twice daily. famotidine (PEPCID) 40 mg tablet Take 1 tablet by mouth at bedtime as needed. For acid reflux vitamin b complex (B-COMPLEX) tab Take 1 tablet by mouth once daily. Cholecalciferol, Vitamin D3, 125 mcg (5,000 unit) cap Take 1 capsule by mouth once daily. (Patient not taking: Reported on 01/15/2024) tiZANidine (ZANAFLEX) 2 mg tablet Take 1-2 tablets by mouth at bedtime as needed. Muscle spasm, pain amitriptyline (ELAVIL) 25 mg tablet Take 1-2 tablets by mouth daily at bedtime. For insomnia Tadalafil (CIALIS) 5 mg tablet Take 1 tablet by mouth as needed (sexual dysfunction). sodium chloride-aloe vera (AYR SALINE) topical nasal gel 1 application by INTRANASAL route at bedtime as needed (nasal dryness). Lancets (FREESTYLE LANCETS) [facility] lanc[facility] Use as instructed blood sugar diagnostic (FREESTYLE TEST) Misc test strip Use as directed. No current facility-administered medications on file prior to visit. BP 119/71 Pulse 74 Ht 175.7 cm (5' 9.17) Wt 122.5 kg (270 lb) BMI 39.67 kg/m? Body mass index is 39.67 kg/m?. General appearance: alert, in no acute distress, obese Head: Normocephalic, atraumatic Eyes: Anicteric sclera , Pupils are equally round and reactive Neck: No JVD, Trachea midline Abdomen: Soft, non distended Left side of mons pubis with 3cm fluctuant abscess, no surrounding cellulitis Extremities:No clubbing, cyanosis, or edema. Neuro: Alert and oriented times three, No apparent distress risks benefits and alternatives of proceeding with incision and drainage were discussed with the risks to include but not limited to hemorrhage, infection , seroma or hematoma formation, and the possibility of recurrence. Patient was understanding and wished to proceed UNIVERSAL PROTOCOL / SAFETY CHECKLIST Procedure to be performed:SHERWIN Sign in Communication: Completed Time Out: Team Confirms the Correct Patient, Correct Procedure, Correct Site and Site Marking, Correct Position (if applicable). Sign Out Discussion: C (more content not included)... [facility] 02-23-2024 History of Present illness Narrative Incision and drainage Indication- 48 y/o wm with DM presents for eval of abscess of left side of mons pubis. Initially began in November, started as small pimple, enlarged, became red and painful and then spontaneously drained, seen by PCP treated with bactrim and bactroban. Some improvement but no resolution, yesterday once again became sore and swollen, no recent drg. No f/c. No previous similar episodes. Has DM, hasn;t checked his sugars in a while, had blood work about 1 month ago. Last HgbA1c 01/15/2024 - was 10.9.long h/o poorly controlled dm as in past poor dietary choices. 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 atorvastatin (LIPITOR) 40 mg tablet Take 1 tablet by mouth once daily. mupirocin (BACTROBAN) 2 % ointment Apply to affected area two times a day as needed (skin infection). (Patient not taking: Reported on 02/10/2024) metFORMIN ER (GLUCOPHAGE XR) 750 mg 24 hr tablet Take 2 tablets with supper. glipiZIDE (GLUCOTROL XL) 10mg 24 hr tablet Take 1 tablet by mouth once daily. With supper allopurinol (ZYLOPRIM) 300 mg tablet Take 1 tablet by mouth once daily. CPAP/BIPAP/OTHER Lower Settings to fixed pressure IPAP 12, EPAP min 6, PS 6 cm H2O, suitable mask per pt preference, chin strap, head gear, humidity, tubing, lifetime supplies. G47.33 MIKKI (Patient not taking: Reported on 01/15/2024) CPAP/BIPAP/OTHER Type .CPAPSettings into a note to see current settings/supplies/DME information. (Patient not taking: Reported on 01/15/2024) diclofenac (VOLTAREN ARTHRITIS PAIN) 1 % topical gel Apply 2 g to affected area twice daily as needed. On left shoulder or 5th finger with joint pain (Patient not taking: Reported on 01/15/2024) carbamide peroxide (DEBROX) 6.5 % otic solution Use 5 Drops in both ears twice daily. famotidine (PEPCID) 40 mg tablet Take 1 tablet by mouth at bedtime as needed. For acid reflux vitamin b complex (B-COMPLEX) tab Take 1 tablet by mouth once daily. Cholecalciferol, Vitamin D3, 125 mcg (5,000 unit) cap Take 1 capsule by mouth once daily. (Patient not taking: Reported on 01/15/2024) tiZANidine (ZANAFLEX) 2 mg tablet Take 1-2 tablets by mouth at bedtime as needed. Muscle spasm, pain amitriptyline (ELAVIL) 25 mg tablet Take 1-2 tablets by mouth daily at bedtime. For insomnia Tadalafil (CIALIS) 5 mg tablet Take 1 tablet by mouth as needed (sexual dysfunction). sodium chloride-aloe vera (AYR SALINE) topical nasal gel 1 application by INTRANASAL route at bedtime as needed (nasal dryness). Lancets (FREESTYLE LANCETS) [facility] lancets Use as instructed blood sugar diagnostic (FREESTYLE TEST) [facility] test strip Use as directed. No current facility-administered medications on file prior to visit. BP 119/71 Pulse 74 Ht 175.7 cm (5' 9.17) Wt 122.5 kg (270 lb) BMI 39.67 kg/m Body mass index is 39.67 kg/m . General appearance: alert, in no acute distress, obese Head: Normocephalic, atraumatic Eyes: Anicteric sclera , Pupils are equally round and reactive Neck: No JVD, Trachea midline Abdomen: Soft, non distended Left side of mons pubis with 3cm fluctuant abscess, no surrounding cellulitis Extremities:No clubbing, cyanosis, or edema. Neuro: Alert and oriented times three, No apparent distress risks benefits and alternatives of proceeding with incision and drainage were discussed with the risks to include but not limited to hemorrhage, infection , seroma or hematoma formation, and the possibility of recurrence. Patient was understanding and wished to proceed UNIVERSAL PROTOCOL / SAFETY CHECKLIST Procedure to be performed:I&D Sign in Communication: Completed Time Out: Team Confirms the Correct Patient, Correct Procedure, Correct Site and Site Marking, Correct Position (if applicable). Sign Out Discussion: Completed The area was prepped with betadaine. Overlying skin and subcutaneous tissues were anesthetized with 1% Xylocaine with epinephrine. An 11 blade was used to make a 1.5 centimeter opening over the abscess cavity. A small amount of purulent drainage was evacuated and cultures not obtained.punctum which drained sebum noted upon infiltration of site. irrigated Packing - 1/4 inch nu gauze placed, and a dry dressing was applied. The patient was instructed to change the dressing each day. And remove packing with next shower Antibiotics --none Dx - infected sebaceous cyst Follow-up visit --10-14 days Patrick Rubin MD 02/23/2024 6:39 PM documented in this encounter [facility] 02-10-2024 History of Present illness Narrative Chief Complaint Patient presents with: follow up groin remains red and sore even after second cour HPI Roe Interiano is a 48 year old male who presents here today for Above Complaints. Roe is an established patient of Dr. Jus DO. He is a new patient to me today. Concerns today... Groin rash/lesion --- Was seen by Dr. Luu on 01/14: Skin lesion, left groin area, sore and tender. Thinks it was red and draining as well. Present for a few weeks. No fevers or chills. Infected cyst of skin - ICD9: 706.2, ICD10: L72.9, L08.9 - Begin treatment with Trimethoprim-sulfamethozazole (Bactrim) 2 DS PO BID - SULFAMETHOXAZOLE 800 MG-TRIMETHOPRIM 160 MG TABLET Today... Pt reports area is not any better. Got better, seemed almost gone and then antibiotic was done and it came right back. Did another round of antibiotic and the same thing happened. Feels area is larger this time. Feels like a really big pimple Does report burning with urination recently and burning to area. No drainage that he is aware of. No bandage to area. HgA1c is out of control at 10.9 which is likely contributing to poor healing. No other concerns or complaints. Past medical history, appointments, medications, allergies reviewed. 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 Sebaceous cyst 01/25/2016 Sleep apnea Did not tolerate CPAP Previous Surgical History PAST SURGICAL HISTORY Procedure Laterality Date APPENDECTOMY EXCISION BENIGN LESIONS,SCALP,NECK,HANDS 01/18/2016 mid chest EYE SURGERY PROCEDURE 32 yrs ago pt not sure what was done REVISE MEDIAN N/CARPAL TUNNEL SURG Bilateral 2019 VASECTOMY UNI/BI SPX W/POSTOP SEMEN EXAMS Family History FAMILY HISTORY Problem Relation Age of Onset Lipids Mother Prostate Cancer Father Diabetes Father Glaucoma Father Diabetes Maternal Grandmother Diabetes Paternal Grandmother DVT No Family History Patient Allergies ALLERGIES No Known Allergies Current Medications Current Outpatient Medications on File Prior to Visit Medication Sig lisinopril (ZESTRIL) 20 mg tablet Take 1 tablet by mouth once daily. atorvastatin (LIPITOR) 40 mg tablet Take 1 tablet by mouth once daily. mupirocin (BACTROBAN) 2 % ointment Apply to affected area two times a day as needed (skin infection). Phentermine HCl (ADIPEX-P) 37.5 mg tablet Take 1 tablet by mouth once daily for 30 days. BMI 41.70 metFORMIN ER (GLUCOPHAGE XR) 750 mg 24 hr tablet Take 2 tablets with supper. glipiZIDE (GLUCOTROL XL) 10mg 24 hr tablet Take 1 tablet by mouth once daily. With supper allopurinol (ZYLOPRIM) 300 mg tablet Take 1 tablet by mouth once daily. CPAP/BIPAP/OTHER Lower Settings to fixed pressure IPAP 12, EPAP min 6, PS 6 cm H2O, suitable mask per pt preference, chin strap, head gear, humidity, tubing, lifetime supplies. G47.33 MIKKI (Patient not taking: Reported on 01/15/2024) CPAP/BIPAP/OTHER Type .CPAPSettings into a note to see current settings/supplies/DME information. (Patient not taking: Reported on 01/15/2024) glipiZIDE (GLUCOTROL) 10 mg tablet Take 1 tablet by mouth once daily. diclofenac (VOLTAREN ARTHRITIS PAIN) 1 % topical gel Apply 2 g to affected area twice daily as needed. On left shoulder or 5th finger with joint pain (Patient not taking: Reported on 01/15/2024) carbamide peroxide (DEBROX) 6.5 % otic solution Use 5 Drops in both ears twice daily. famotidine (PEPCID) 40 mg tablet Take 1 tablet by mouth at bedtime as needed. For acid reflux vitamin b complex (B-COMPLEX) tab Take 1 tablet by mouth once daily. Cholecalciferol, Vitamin D3, 125 mcg (5,000 unit) cap Take 1 capsule by mouth once daily. (Patient not taking: Reported on 01/15/2024) tiZANidine (ZANAFLEX) 2 mg tablet Take 1-2 tablets by mouth at bedtime as needed. Muscle spasm, pain amitriptyline (ELAVIL) 25 mg tablet Take 1-2 tablets by mouth daily at bedtime. For insomnia Tadalafil (CIALIS) 5 mg tablet Take 1 tablet by mouth as needed (sexual dysfunction). sodium chloride-aloe vera (AYR SALINE) topical nasal gel 1 application by INTRANASAL route at bedtime as needed (nasal dryness). Lancets (FREESTYLE LANCETS) [facility] lancets Use as instructed blood sugar diagnostic (FREESTYLE TEST) Misc test strip Use as directed. No current facility-administered medications on file prior to visit. Social History Social History Tobacco Use Smoking status: Never Smokeless tobacco: Never Vaping Use Vaping Use: Never used Substance Use Topics Alcohol use: No Drug use: No REVIEW OF SYSTEMS: as above Reviewed relevant PMHx, PSHx, Social Hx, current medications and allergies. Review of Symptoms REVIEW OF SYSTEMS See HPI. EXAM: BP 124/62 (BP Site: Left Arm, BP Position: Sitting, BP Cuff Size: Large Adult) Pulse 72 Resp 16 Wt 126.9 kg (279 lb 12.8 oz) BMI 41.11 kg/m General Appearance: Well appearing, alert, in no acute distress, well-hydrated, well nourished.. Skin: Skin color, texture, turgor normal, no suspicious rashes or lesions, Positives: abscess to L groin/scrotum region about the size of dime. Red and inflamed without drainage. Head: Normocephalic, no masses, lesions, tenderness or abnormalities. Health Maintenance List Hepatitis C Screening Never done HIV Screening Never done Hepatitis B Vaccine(1 of 3 - 19+ 3-dose series) Never done Colorectal Cancer Screening Never done Dilated Retinal Exam due on 05/31/2022 Covid-19 Vaccine(1 - 2022- season) due on 01/14/2025 Pneumococcal Vaccine(2 of 2 - PCV) due on 01/14/2025 HbA1C due on 04/15/2024 Influenza Vaccine(Season Ended) due on 05/29/2024 Urine Albumin:Creatinine Ratio due on 06/27/2024 Diabetic Foot Exam due on 07/15/2024 BP Controlled (<130/80) due on 07/15/2024 LDL Cholesterol due on 01/14/2025 Annual PCP Team Chronic Disease Visit due on 01/14/2025 DTaP,Tdap,Td Vaccine(2 - Td or Tdap) due on 02/04/2026 Behavioral Health Screening Discontinued ASSESSMENT/PLAN: 1. Cutaneous abscess of other site - ICD9: 682.8, ICD10: L02.818 UA dip d/t associated dysuria -- negative for any signs of infection. Glucose + at 100. Poorly controlled DM contributing to poor healing process. Failed resolution with 2 rounds of antibiotic. Likely needs I&D or excision. General surgery consult placed. - No lymphangetic streaking, this was defined for patient to watch for and to seek medical care immediately if appears - UA DIP, URINE (POC) - CONSULT TO GENERAL SURGERY 2. Uncontrolled type 2 diabetes mellitus with hyperglycemia (HCC) - ICD9: 250.02, ICD10: E11.65 See above. - UA DIP, URINE (POC) 3. Dysuria - ICD9: 788.1, ICD10: R30.0 see above. - UA DIP, URINE (POC) RTO as needed. Prescription instructions reviewed with patient as applicable. Potential red flag symptoms discussed with the patient. Reviewed appropriate action plan to take if red flag symptoms occur. Patient agreeable to treatment plan. Jenn Burgos APRN.SOLE CONFORMING MACHINE OPERATOR [id number] [place] [address] documented in this encounter [facility] 02-10-2024 Note HNO ID: [id number] Author: JENN SOTELO APRN.ONDINA Service: ? Author Type: Nurse Practitioner Type: Progress Notes Filed: 02/10/2024 16:05 Note Text: Chief Complaint Patient presents with: follow up groin remains red and sore even after second cour HPI Roe Interiano is a 48 year old male who presents here today for Above Complaints. Roe is an established patient of Dr. Jus DO. He is a new patient to me today. Concerns today... Groin rash/lesion --- Was seen by Dr. Luu on 01/14: Skin lesion, left groin area, sore and tender. Thinks it was red and draining as well. Present for a few weeks. No fevers or chills. Infected cyst of skin - ICD9: 706.2, ICD10: L72.9, L08.9 - Begin treatment with Trimethoprim-sulfamethozazole (Bactrim) 2 DS PO BID - SULFAMETHOXAZOLE 800 MG-TRIMETHOPRIM 160 MG TABLET Today... Pt reports area is not any better. Got better, seemed almost gone and then antibiotic was done and it came right back. Did another round of antibiotic and the same thing happened. Feels area is larger this time. Feels like a really big pimple Does report burning with urination recently and burning to area. No drainage that he is aware of. No bandage to area. HgA1c is out of control at 10.9 which is likely contributing to poor healing. No other concerns or complaints. Past medical history, appointments, medications, allergies reviewed. 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 Sebaceous cyst 01/25/2016 Sleep apnea Did not tolerate CPAP Previous Surgical History PAST SURGICAL HISTORY Procedure Laterality Date APPENDECTOMY EXCISION BENIGN LESIONS,SCALP,NECK,HANDS 01/18/2016 mid chest EYE SURGERY PROCEDURE 32 yrs ago pt not sure what was done REVISE MEDIAN N/CARPAL TUNNEL SURG Bilateral 2019 VASECTOMY UNI/BI SPX W/POSTOP SEMEN EXAMS Family History FAMILY HISTORY Problem Relation Age of Onset Lipids Mother Prostate Cancer Father Diabetes Father Glaucoma Father Diabetes Maternal Grandmother Diabetes Paternal Grandmother DVT No Family History Patient Allergies ALLERGIES No Known Allergies Current Medications Current Outpatient Medications on File Prior to Visit Medication Sig lisinopril (ZESTRIL) 20 mg tablet Take 1 tablet by mouth once daily. atorvastatin (LIPITOR) 40 mg tablet Take 1 tablet by mouth once daily. mupirocin (BACTROBAN) 2 % ointment Apply to affected area two times a day as needed (skin infection). Phentermine HCl (ADIPEX-P) 37.5 mg tablet Take 1 tablet by mouth once daily for 30 days. BMI 41.70 metFORMIN ER (GLUCOPHAGE XR) 750 mg 24 hr tablet Take 2 tablets with supper. glipiZIDE (GLUCOTROL XL) 10mg 24 hr tablet Take 1 tablet by mouth once daily. With supper allopurinol (ZYLOPRIM) 300 mg tablet Take 1 tablet by mouth once daily. CPAP/BIPAP/OTHER Lower Settings to fixed pressure IPAP 12, EPAP min 6, PS 6 cm H2O, suitable mask per pt preference, chin strap, head gear, humidity, tubing, lifetime supplies. G47.33 MIKKI (Patient not taking: Reported on 01/15/2024) CPAP/BIPAP/OTHER Type .CPAPSettings into a note to see current settings/supplies/DME information. (Patient not taking: Reported on 01/15/2024) glipiZIDE (GLUCOTROL) 10 mg tablet Take 1 tablet by mouth once daily. diclofenac (VOLTAREN ARTHRITIS PAIN) 1 % topical gel Apply 2 g to affected area twice daily as needed. On left shoulder or 5th finger with joint pain (Patient not taking: Reported on 01/15/2024) carbamide peroxide (DEBROX) 6.5 % otic solution Use 5 Drops in both ears twice daily. famotidine (PEPCID) 40 mg tablet Take 1 tablet by mouth at bedtime as needed. For acid reflux vitamin b complex (B-COMPLEX) tab Take 1 tablet by mouth once daily. Cholecalciferol, Vitamin D3, 125 mcg (5,000 unit) cap Take 1 capsule by mouth once daily. (Patient not taking: Reported on 01/15/2024) tiZANidine (ZANAFLEX) 2 mg tablet Take 1-2 tablets by mouth at bedtime as needed. Muscle spasm, pain amitriptyline (ELAVIL) 25 mg tablet Take 1-2 tablets by mouth daily at bedtime. For insomnia Tadalafil (CIALIS) 5 mg tablet Take 1 tablet by mouth as needed (sexual dysfunction). sodium chloride-aloe vera (AYR SALINE) topical nasal gel 1 application by INTRANASAL route at bedtime as needed (nasal dryness). Lancets (FREESTYLE LANCETS) [facility] lancets Use as instructed blood sugar diagnostic (FREESTYLE TEST) [facility] test strip Use as directed. No current facility-administered medications on file prior to visit. Social History Social History (more content not included)... [facility] 02-04-2024 Telephone encounter Note Pt informed, verbalized understanding. Please assist with scheduling. Lisa Valles MA [facility] 02-04-2024 Miscellaneous Notes Pt informed, verbalized understanding. Please assist with scheduling. Lisa Valles MA Please let him know that his testosterone levels are still low normal. Recommend follow up with Urologist or dewer for opinion if interested in taking testosterone hormone Ean Luu DO documented in this encounter [facility] 02-03-2024 Telephone encounter Note Please let him know that his testosterone levels are still low normal. Recommend follow up with Urologist or dewer for opinion if interested in taking testosterone hormone Ean Luu DO [facility] 02-01-2024 Telephone encounter Note Patient has been identified by name and date of : Yes Patient phones for refill(s): Requested Prescriptions Pending Prescriptions Disp Refills lisinopril (ZESTRIL) 20 mg tablet 90 tablet 3 Sig: Take 1 tablet by mouth once daily. atorvastatin (LIPITOR) 40 mg tablet 90 tablet 1 Sig: Take 1 tablet by mouth once daily. Date of last office visit in primary care: 01/15/2024 Date of next office visit in primary care: 01/31/2024 Please advise. Thank you. Betzaida Hyman MA. [facility] 02-01-2024 Miscellaneous Notes Patient has been identified by name and date of : Yes Patient phones for refill(s): Requested Prescriptions Pending Prescriptions Disp Refills lisinopril (ZESTRIL) 20 mg tablet 90 tablet 3 Sig: Take 1 tablet by mouth once daily. atorvastatin (LIPITOR) 40 mg tablet 90 tablet 1 Sig: Take 1 tablet by mouth once daily. Date of last office visit in primary care: 01/15/2024 Date of next office visit in primary care: 01/31/2024 Please advise. Thank you. Betzaida Hyman MA. documented in this encounter [facility] 01-27-2024 Telephone encounter Note Noted. Thank you, Jenn Sotelo APRN.ONDINA [facility] 01-27-2024 Miscellaneous Notes Noted. Thank you, Jenn Sotelo APRN.SOLE CONFORMING MACHINE OPERATOR Pt called and is notified of providers results and instructions. Pt voices understanding. Pt scheduled recheck of testosterone levels. Pt states he does not want to start another medication at this time for his uncontrolled diabetes. Philomena Scott RN Please inform patient that his testosterone levels are low. Would recommend this to be rechecked. If it is still low, then needs to consider seeing Urologist for opinion regarding if safe for him to be on testotserone replacement therapy. His PSA prostate levels are normal. He needs to be considering starting another glucose medication for regulation of his uncontrolled diabetes such as Jardiance or Trulicity or Lantus insulin daily as injection Ean Luu DO Patient calling asking PCP recommendations on his PSA and Testosterone lab results, he can see these on his my chart. His appt was before his labs were done. Please advise Latest Ref Rng 01/15/2024 WBC 3.70 - 11.00 k/uL 8.96 RBC 4.20 - 6.00 m/uL 5.70 Hemoglobin 13.0 - 17.0 g/dL 15.7 Hematocrit 39.0 - 51.0 % 46.3 MCV 80.0 - 100.0 fL 81.2 MCH 26.0 - 34.0 pg 27.5 MCHC 30.5 - 36.0 g/dL 33.9 RDW-CV 11.5 - 15.0 % 14.1 Platelet Count 150 - 400 k/uL 270 MPV 9.0 - 12.7 fL 10.4 Neut% % 72.7 Abs Neut (ANC) 1.45 - 7.50 k/uL 6.52 Lymph% % 16.2 Abs Lymph 1.00 - 4.00 k/uL 1.45 Edwards% % 6.3 Abs Edwards <0.87 k/uL 0.56 Eosin% % 3.6 Abs Eosin <0.46 k/uL 0.32 Baso% % 1.0 Abs Baso <0.11 k/uL 0.09 Immature Gran % % 0.2 IMMATURE GRANS (ABS) <0.10 k/uL <0.03 NRBC /100 WBC 0.0 Absolute nRBC <0.01 k/uL <0.01 DTYPE Auto Protein, Total 6.3 - 8.0 g/dL 7.1 Albumin 3.9 - 4.9 g/dL 4.4 Calcium 8.5 - 10.2 mg/dL 9.9 Bilirubin, Total 0.2 - 1.3 mg/dL 0.8 Alkaline Phosphatase 38 - 113 U/L 117 (H) AST 14 - 40 U/L 26 ALT 10 - 54 U/L 31 Glucose 74 - 99 mg/dL 373 (H) BUN 9 - 24 mg/dL 16 Creatinine 0.73 - 1.22 mg/dL 0.75 Sodium 136 - 144 mmol/L 134 (L) Potassium 3.7 - 5.1 mmol/L 4.5 Chloride 97 - 105 mmol/L 100 CO2 22 - 30 mmol/L 20 (L) Anion Gap 9 - 18 mmol/L 14 eGFR >=60 mL/min/1.73m 112 Total Cholesterol, Nonfasting <200 mg/dL 145 Triglycerides, Nonfasting <150 mg/dL 988 (H) HDL Cholesterol, Nonfasting >39 mg/dL 31 (L) LDL Cholesterol, Nonfasting -- Non HDL Cholesterol, Nonfasting <130 mg/dL 114 VLDL Cholesterol, Nonfasting -- Total Chol/HDL Ratio, Nonfasting <5.10 mg/dL 4.68 LDL/HDL Ratio, Nonfasting -- Testosterone Free 4.26 - 16.4 ng/dL 4.72 Testosterone 240 - 950 ng/dL 122 (L) Hemoglobin A1C 4.3 - 5.6 % 10.9 (H) Estimated Average Glucose mg/dL 266 PSA Screening <2.60 ng/mL 0.49 Legend: (H) High (L) Low documented in this encounter [facility] 01-26-2024 Telephone encounter Note Pt called and is notified of providers results and instructions. Pt voices understanding. Pt scheduled recheck of testosterone levels. Pt states he does not want to start another medication at this time for his uncontrolled diabetes. Philomena Scott RN [facility] 01-26-2024 Telephone encounter Note Please inform patient that his testosterone levels are low. Would recommend this to be rechecked. If it is still low, then needs to consider seeing Urologist for opinion regarding if safe for him to be on testotserone replacement therapy. His PSA prostate levels are normal. He needs to be considering starting another glucose medication for regulation of his uncontrolled diabetes such as Jardiance or Trulicity or Lantus insulin daily as injection Ean Luu DO [facility] 01-26-2024 Telephone encounter Note Patient calling asking PCP recommendations on his PSA and Testosterone lab results, he can see these on his my chart. His appt was before his labs were done. Please advise Latest Ref Rng 01/15/2024 WBC 3.70 - 11.00 k/uL 8.96 RBC 4.20 - 6.00 m/uL 5.70 Hemoglobin 13.0 - 17.0 g/dL 15.7 Hematocrit 39.0 - 51.0 % 46.3 MCV 80.0 - 100.0 fL 81.2 MCH 26.0 - 34.0 pg 27.5 MCHC 30.5 - 36.0 g/dL 33.9 RDW-CV 11.5 - 15.0 % 14.1 Platelet Count 150 - 400 k/uL 270 MPV 9.0 - 12.7 fL 10.4 Neut% % 72.7 Abs Neut (ANC) 1.45 - 7.50 k/uL 6.52 Lymph% % 16.2 Abs Lymph 1.00 - 4.00 k/uL 1.45 Edwards% % 6.3 Abs Edwards <0.87 k/uL 0.56 Eosin% % 3.6 Abs Eosin <0.46 k/uL 0.32 Baso% % 1.0 Abs Baso <0.11 k/uL 0.09 Immature Gran % % 0.2 IMMATURE GRANS (ABS) <0.10 k/uL <0.03 NRBC /100 WBC 0.0 Absolute nRBC <0.01 k/uL <0.01 DTYPE Auto Protein, Total 6.3 - 8.0 g/dL 7.1 Albumin 3.9 - 4.9 g/dL 4.4 Calcium 8.5 - 10.2 mg/dL 9.9 Bilirubin, Total 0.2 - 1.3 mg/dL 0.8 Alkaline Phosphatase 38 - 113 U/L 117 (H) AST 14 - 40 U/L 26 ALT 10 - 54 U/L 31 Glucose 74 - 99 mg/dL 373 (H) BUN 9 - 24 mg/dL 16 Creatinine 0.73 - 1.22 mg/dL 0.75 Sodium 136 - 144 mmol/L 134 (L) Potassium 3.7 - 5.1 mmol/L 4.5 Chloride 97 - 105 mmol/L 100 CO2 22 - 30 mmol/L 20 (L) Anion Gap 9 - 18 mmol/L 14 eGFR >=60 mL/min/1.73m 112 Total Cholesterol, Nonfasting <200 mg/dL 145 Triglycerides, Nonfasting <150 mg/dL 988 (H) HDL Cholesterol, Nonfasting >39 mg/dL 31 (L) LDL Cholesterol, Nonfasting -- Non HDL Cholesterol, Nonfasting <130 mg/dL 114 VLDL Cholesterol, Nonfasting -- Total Chol/HDL Ratio, Nonfasting <5.10 mg/dL 4.68 LDL/HDL Ratio, Nonfasting -- Testosterone Free 4.26 - 16.4 ng/dL 4.72 Testosterone 240 - 950 ng/dL 122 (L) Hemoglobin A1C 4.3 - 5.6 % 10.9 (H) Estimated Average Glucose mg/dL 266 PSA Screening <2.60 ng/mL 0.49 Legend: (H) High (L) Low [facility] 01-15-2024 Note HNO ID: [id number] Author: EAN LUU, DO Service: ? Author Type: Physician Type: Progress Notes Filed: 01/15/2024 17:17 Note Text: Patient presents with: 6 month f/up HPI: Roe Interiano is a 48 year old male who presents to the office today for review of health conditions. Concerns today: Erectile dysfunction, long standing, difficulty with achieving and maintaining an erection. Has been on ERECTILE DYSFUNCTION medications in the past without much benefit, he would like to have testosterone levels checked Morbid obesity, weight at 283 lbs, knows that he needs to work on weight loss. He is interested in a trial of a medication. Is trying to be more physically active as well as eating healthier diet. Skin lesion, left groin area, sore and tender. Thinks it was red and draining as well. Present for a few weeks. No fevers or chills. Mr. Interiano has past history of diabetes. Since our last visit he denies excessive thirst or increased frequency of urination, chest pain or dyspnea , new or unusual visual symptoms, and low sugar/hypoglycemic reactions. Depression- no. Follows a diabetic diet some of the time. He is compliant with medication(s) and is tolerating med(s) without any side effects. He reports checking his glucose on a twice a day schedule with sugars in the <200 range. Patient's last HgA1C was Hemoglobin A1C (%) Date Value 06/27/2023 11.2 10/27/2022 9.9 09/02/2021 10.3 06/21/2021 9.6 Hemoglobin A1C (POCT) (%) Date Value 10/01/2022 9.8 ) Last Ophthalmology exam was within the past 12 months Mr. Interiano reports history of hyperlipidemia. Current therapy includes atorvastatin (Lipitor) 40 mg. Denies side effects of muscle weakness or achiness. His most recent lipid panels are reviewed. Cholesterol, Total (mg/dL) Date Value 06/27/2023 119 06/21/2021 144 HDL Cholesterol (mg/dL) Date Value 06/27/2023 28 06/21/2021 30 LDL Cholesterol Date Value 06/27/2023 Comment: Unable to calculate due to increased Triglycerides. See LDL-Chol, Direct. 06/21/2021 Unable to calculate due to increased Triglycerides. See LDL-Chol, Direct. mg/dL Triglyceride (mg/dL) Date Value 06/27/2023 503 06/21/2021 539 Mr. Interiano indicates a history of hypertension and states that he is feeling well and denies any symptoms referable to elevated blood pressure. Specifically denies headache, chest pain, palpitations, dyspnea, and peripheral edema. Patient denies any side effects of his medication(s) and is compliant with their regimen. Last 3 Encounter BP Readings: Date: BP: 01/15/2024 150/80 07/15/2023 130/80 01/07/2023 136/70 He watches his diet for sodium, low fat and low cholesterol some of the time. He does not check BP's generally. Roe gets minimal exercise. 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 Sebaceous cyst 01/25/2016 Sleep apnea Did not tolerate CPAP PAST SURGICAL HISTORY Procedure Laterality Date APPENDECTOMY EXCISION BENIGN LESIONS,SCALP,NECK,HANDS 01/18/2016 mid chest EYE SURGERY PROCEDURE 32 yrs ago pt not sure what was done REVISE MEDIAN N/CARPAL TUNNEL SURG Bilateral 2019 VASECTOMY UNI/BI SPX W/POSTOP SEMEN EXAMS Social History Tobacco Use Smoking status: Never Smokeless tobacco: Never Vaping Use Vaping Use: Never used Substance Use Topics Alcohol use: No Drug use: No FAMILY HISTORY Problem Relation Age of Onset Lipids Mother Prostate Cancer Father Diabetes Father Glaucoma Father Diabetes Maternal Grandmother Diabetes Paternal Grandmother DVT No Family History Allergies: ALLERGIES No Known Allergies Current Meds: lisinopril (ZESTRIL) 20 mg tablet take 1 tablet by mouth daily metFORMIN ER (GLUCOPHAGE XR) 750 mg 24 hr tablet Take 2 tablets with supper. atorvastatin (LIPITOR) 40 mg tablet Take 1 tablet by mouth once daily. glipiZIDE (GLUCOTROL XL) 10mg 24 hr tablet Take 1 tablet by mouth once daily. With supper allopurinol (ZYLOPRIM) 300 mg tablet Take 1 tablet by mouth once daily. glipiZIDE (GLUCOTROL) 10 mg tablet Take 1 tablet by mouth once daily. carbamide peroxide (DEBROX) 6.5 % otic solution Use 5 Drops in both ears twice daily. famotidine (PEPCID) 40 mg tablet Take 1 tablet by mouth at bedtime as needed. For acid reflux vitamin b complex (B-COMPLEX) tab Take 1 tablet by mouth once daily. Lancets (FREESTYLE LANCETS) Misc lancets Use as instructed blood sugar diagnostic (FREESTYLE TEST) Misc test strip Use as directed. mupirocin (BACTROBAN) 2 % ointment Apply to affected area two times (more content not included)... [facility] 01-15-2024 History of Present illness Narrative Patient presents with: 6 month f/up HPI: Roe Interiano is a 48 year old male who presents to the office today for review of health conditions. Concerns today: Erectile dysfunction, long standing, difficulty with achieving and maintaining an erection. Has been on ERECTILE DYSFUNCTION medications in the past without much benefit, he would like to have testosterone levels checked Morbid obesity, weight at 283 lbs, knows that he needs to work on weight loss. He is interested in a trial of a medication. Is trying to be more physically active as well as eating healthier diet. Skin lesion, left groin area, sore and tender. Thinks it was red and draining as well. Present for a few weeks. No fevers or chills. Mr. Interiano has past history of diabetes. Since our last visit he denies excessive thirst or increased frequency of urination, chest pain or dyspnea , new or unusual visual symptoms, and low sugar/hypoglycemic reactions. Depression- no. Follows a diabetic diet some of the time. He is compliant with medication(s) and is tolerating med(s) without any side effects. He reports checking his glucose on a twice a day schedule with sugars in the <200 range. Patient's last HgA1C was Hemoglobin A1C (%) Date Value 06/27/2023 11.2 10/27/2022 9.9 09/02/2021 10.3 06/21/2021 9.6 Hemoglobin A1C (POCT) (%) Date Value 10/01/2022 9.8 ) Last Ophthalmology exam was within the past 12 months Mr. Interiano reports history of hyperlipidemia. Current therapy includes atorvastatin (Lipitor) 40 mg. Denies side effects of muscle weakness or achiness. His most recent lipid panels are reviewed. Cholesterol, Total (mg/dL) Date Value 06/27/2023 119 06/21/2021 144 HDL Cholesterol (mg/dL) Date Value 06/27/2023 28 06/21/2021 30 LDL Cholesterol Date Value 06/27/2023 Comment: Unable to calculate due to increased Triglycerides. See LDL-Chol, Direct. 06/21/2021 Unable to calculate due to increased Triglycerides. See LDL-Chol, Direct. mg/dL Triglyceride (mg/dL) Date Value 06/27/2023 503 06/21/2021 539 Mr. Interiano indicates a history of hypertension and states that he is feeling well and denies any symptoms referable to elevated blood pressure. Specifically denies headache, chest pain, palpitations, dyspnea, and peripheral edema. Patient denies any side effects of his medication(s) and is compliant with their regimen. Last 3 Encounter BP Readings: Date: BP: 01/15/2024 150/80 07/15/2023 130/80 01/07/2023 136/70 He watches his diet for sodium, low fat and low cholesterol some of the time. He does not check BP's generally. Roe gets minimal exercise. 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 Sebaceous cyst 01/25/2016 Sleep apnea Did not tolerate CPAP PAST SURGICAL HISTORY Procedure Laterality Date APPENDECTOMY EXCISION BENIGN LESIONS,SCALP,NECK,HANDS 01/18/2016 mid chest EYE SURGERY PROCEDURE 32 yrs ago pt not sure what was done REVISE MEDIAN N/CARPAL TUNNEL SURG Bilateral 2019 VASECTOMY UNI/BI SPX W/POSTOP SEMEN EXAMS Social History Tobacco Use Smoking status: Never Smokeless tobacco: Never Vaping Use Vaping Use: Never used Substance Use Topics Alcohol use: No Drug use: No FAMILY HISTORY Problem Relation Age of Onset Lipids Mother Prostate Cancer Father Diabetes Father Glaucoma Father Diabetes Maternal Grandmother Diabetes Paternal Grandmother DVT No Family History Allergies: ALLERGIES No Known Allergies Current Meds: lisinopril (ZESTRIL) 20 mg tablet take 1 tablet by mouth daily metFORMIN ER (GLUCOPHAGE XR) 750 mg 24 hr tablet Take 2 tablets with supper. atorvastatin (LIPITOR) 40 mg tablet Take 1 tablet by mouth once daily. glipiZIDE (GLUCOTROL XL) 10mg 24 hr tablet Take 1 tablet by mouth once daily. With supper allopurinol (ZYLOPRIM) 300 mg tablet Take 1 tablet by mouth once daily. glipiZIDE (GLUCOTROL) 10 mg tablet Take 1 tablet by mouth once daily. carbamide peroxide (DEBROX) 6.5 % otic solution Use 5 Drops in both ears twice daily. famotidine (PEPCID) 40 mg tablet Take 1 tablet by mouth at bedtime as needed. For acid reflux vitamin b complex (B-COMPLEX) tab Take 1 tablet by mouth once daily. Lancets (FREESTYLE LANCETS) [facility] lancets Use as instructed blood sugar diagnostic (FREESTYLE TEST) [facility] test strip Use as directed. mupirocin (BACTROBAN) 2 % ointment Apply to affected area two times a day as needed (skin infection). sulfamethoxazole-trimethoprim (BACTRIM DS) 800-160 mg per tablet Take 1 tablet by mouth two times a day for 10 days. CPAP/BIPAP/OTHER Lower Settings to fixed pressure IPAP 12, EPAP min 6, PS 6 cm H2O, suitable mask per pt preference, chin strap, head gear, humidity, tubing, lifetime supplies. G47.33 MIKKI (Patient not taking: Reported on 01/15/2024) CPAP/BIPAP/OTHER Type .CPAPSettings into a note to see current settings/supplies/DME information. (Patient not taking: Reported on 01/15/2024) diclofenac (VOLTAREN ARTHRITIS PAIN) 1 % topical gel Apply 2 g to affected area twice daily as needed. On left shoulder or 5th finger with joint pain (Patient not taking: Reported on 01/15/2024) Cholecalciferol, Vitamin D3, 125 mcg (5,000 unit) cap Take 1 capsule by mouth once daily. (Patient not taking: Reported on 01/15/2024) tiZANidine (ZANAFLEX) 2 mg tablet Take 1-2 tablets by mouth at bedtime as needed. Muscle spasm, pain amitriptyline (ELAVIL) 25 mg tablet Take 1-2 tablets by mouth daily at bedtime. For insomnia Tadalafil (CIALIS) 5 mg tablet Take 1 tablet by mouth as needed (sexual dysfunction). sodium chloride-aloe vera (AYR SALINE) topical nasal gel 1 application by INTRANASAL route at bedtime as needed (nasal dryness). Review of Systems: The remainder of the review of systems is negative. PE: 01/15/24 1606 BP: 150/80 BP Site: Left Arm BP Position: Sitting BP Cuff Size: Large Adult Pulse: 100 Resp: 14 Weight: 128.7 kg (283 lb 12.8 oz) Gen: A&O, NAD, non-toxic appearing, Pleasant, cooperative HEENT: NT/AC, PERRLA, ptosis left upper eyelid, visually impaired right eye, nares clear and patent b/l, pharynx without erythema, exudate or lesions. Uvula midline. MMM Neck: supple, No cervical LAD, no thyromegaly, no carotid bruits CV: RRR, normal S1 and S2, no murmurs, no gallops, no rubs, Pulses 2+ and symmetric in UE and LE b/l Lungs: normal respiratory effort, CTA b/l, no wheezing or rhonchi or rales Abd: soft, NT, ND, +BS, no hepatosplenomegaly MS: FROM all 4 extremities Neuro: CN II-XII intact b/l, strength 5/5 b/l UE and LE, DTRs 2/4 UE and LE, sensation intact. Skin: warm, dry, intact, non fluctuant skin cyst/abscess with soreness and redness left groin Foot exam: no edema, normal pulses ASSESSMENT/PLAN: 1. Uncontrolled type 2 diabetes mellitus with hyperglycemia (HCC) - ICD9: 250.02, ICD10: E11.65 (primary diagnosis) - Uncontrolled - Worsening control - Barriers to control: diet adherence, lack of exercise, and cost of medication - Continue current medications - Blood glucose monitoring on a twice daily schedule - Counseled on healthy diet and regular exercise - Discussed need for and benefit of weight loss. BMI 41.70 kg/(m^2) - would like to start GLP1 agonist but he states insurance won't cover it - PHENTERMINE 37.5 MG TABLET - HEMOGLOBIN A1C - COMPREHENSIVE METABOLIC PANEL - COMPLETE BLOOD COUNT AND DIFFERENTIAL 2. Infected cyst of skin - ICD9: 706.2, ICD10: L72.9, L08.9 - Begin treatment with Trimethoprim-sulfamethozazole (Bactrim) 2 DS PO BID - SULFAMETHOXAZOLE 800 MG-TRIMETHOPRIM 160 MG TABLET 3. Hyperlipidemia with target LDL less than 100 - ICD9: 272.4, ICD10: E78.5 - Control undetermined, due for labs - Continue current medications - Counseled on healthy diet and regular exercise - Discussed need for and benefit of weight loss. BMI 41.70 kg/(m^2) - LIPID PANEL, NONFASTING 4. Essential hypertension - ICD9: 401.9, ICD10: I10 - Controlled - Continue current medications - Recommend home blood pressure monitoring, to bring results to next visit - Encouraged sodium restriction, DASH or Mediterranean diet - Recommend regular aerobic exercise 5. Vitamin B12 deficiency - ICD9: 266.2, ICD10: E53.8 Continue supplement 6. ED (erectile dysfunction) of organic origin - ICD9: 607.84, ICD10: N52.9 Labs as ordered Need for weight loss Have tried viagra and cialis without improvement - TESTOSTERONE, FREE AND TOTAL 7. Screening for prostate cancer - ICD9: V76.44, ICD10: Z12.5 - Counseled on healthy diet and regular exercise - Discussed need for and benefit of weight loss. BMI 41.70 kg/(m^2) - PSA/PROSTATE SPECIFIC ANTIGEN SCREENING Ean Luu DO To ER if develops chest pain, shortness of breath, or severe worsening of symptoms. Discussed risks, benefits, alternatives, and potential side effects of medications. Patient expressed understanding and agreed with the plan. Ean Luu DO [address] [place] [address] documented in this encounter [facility] 01-15-2024 Miscellaneous Notes Patient has been identified by name and date of : Yes, Provider Luu Date 01/15/2024 Time 1221 Patient phones for refill(s): Requested Prescriptions Pending Prescriptions Disp Refills lisinopril (ZESTRIL) 20 mg tablet [Pharmacy Med Name: lisinopril 20 mg tablet] 90 tablet 3 Sig: take 1 tablet by mouth daily Date of last office visit in primary care: 07/15/2023 Date of next office visit in primary care: Visit date not found Please advise. Thank you. Lisa Valles MA. documented in this encounter [facility] 08-03-2023 Miscellaneous Notes [facility] Patient has been identified by name and date of : Yes Patient aware RX will be sent to pharmacy. No need to notify patient. Spouse phones for refill(s): Requested Prescriptions Pending Prescriptions Disp Refills atorvastatin (LIPITOR) 40 mg tablet 90 tablet 1 Sig: Take 1 tablet by mouth once daily. Date of last office visit : 07/15/2023 Date of next office visit : 01/15/2024 Last 2 Encounter Wt Readings: Date: Wt: 07/15/2023 126.6 kg (279 lb) 01/07/2023 130.6 kg (288 lb) Not applicable Please advise. Lilly Rosado Pss documented in this encounter [facility] 07-16-2023 History of Present illness Narrative Patient presents with: 6 Month Exam HPI: Roe Interiano is a 48 year old male who presents to the office today for review of health conditions. Concerns today: Admits that he hasn't been following a diabetic diet. He stopped taking his jardiance since he isn't able to afford the extra $40 per month cost. He states that he didn't qualify for patient assistance due to his health insurance. Tingling left side of face on jaw, no blisters, present the last 1 week He is frustrated that his insurance won't pay for weight loss surgery for him as well. Mr. Interiano has past history of diabetes. Since our last visit he denies excessive thirst or increased frequency of urination, chest pain or dyspnea , new or unusual visual symptoms, and low sugar/hypoglycemic reactions. Depression- no. Follows a diabetic diet generally not very much. He is not compliant with medication(s) but is tolerating med(s) without any side effects. He reports checking his glucose on a infrequent to not at all basis schedule - due to his choice. Patient's last HgA1C was Hemoglobin A1C (%) Date Value 06/27/2023 11.2 10/27/2022 9.9 09/02/2021 10.3 06/21/2021 9.6 Hemoglobin A1C (POCT) (%) Date Value 10/01/2022 9.8 ) Last Ophthalmology exam was within the past 12 months Mr. Interiano reports history of hyperlipidemia. Current therapy includes atorvastatin (Lipitor) 40 mg. Denies side effects of muscle weakness or achiness. His most recent lipid panels are reviewed. Cholesterol, Total (mg/dL) Date Value 06/27/2023 119 06/21/2021 144 HDL Cholesterol (mg/dL) Date Value 06/27/2023 28 06/21/2021 30 LDL Cholesterol Date Value 06/27/2023 Comment: Unable to calculate due to increased Triglycerides. See LDL-Chol, Direct. 06/21/2021 Unable to calculate due to increased Triglycerides. See LDL-Chol, Direct. mg/dL Triglyceride (mg/dL) Date Value 06/27/2023 503 06/21/2021 539 Mr. Interiano indicates a history of hypertension and states that he is feeling well and denies any symptoms referable to elevated blood pressure. Specifically denies headache, chest pain, palpitations, dyspnea, and peripheral edema. Patient denies any side effects of his medication(s) and is compliant with their regimen. Last 3 Encounter BP Readings: Date: BP: 07/15/2023 130/80 01/07/2023 136/70 11/19/2022 136/84 He watches his diet for sodium, low fat and low cholesterol some of the time. He does not check BP's generally. Roe gets minimal exercise. 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 Sebaceous cyst 01/25/2016 Sleep apnea Did not tolerate CPAP PAST SURGICAL HISTORY Procedure Laterality Date APPENDECTOMY EXCISION BENIGN LESIONS,SCALP,NECK,HANDS 01/18/2016 mid chest EYE SURGERY PROCEDURE 32 yrs ago pt not sure what was done REVISE MEDIAN N/CARPAL TUNNEL SURG Bilateral 2019 VASECTOMY UNI/BI SPX W/POSTOP SEMEN EXAMS Social History Tobacco Use Smoking status: Never Smokeless tobacco: Never Vaping Use Vaping Use: Never used Substance Use Topics Alcohol use: No Drug use: No FAMILY HISTORY Problem Relation Age of Onset Lipids Mother Prostate Cancer Father Diabetes Father Glaucoma Father Diabetes Maternal Grandmother Diabetes Paternal Grandmother DVT No Family History Allergies: ALLERGIES No Known Allergies Current Meds: allopurinol (ZYLOPRIM) 300 mg tablet Take 1 tablet by mouth once daily. metFORMIN ER (GLUCOPHAGE XR) 750 mg 24 hr tablet Take 2 tablets with supper. lisinopril (ZESTRIL) 20 mg tablet Take 1 tablet by mouth once daily. diclofenac (VOLTAREN ARTHRITIS PAIN) 1 % topical gel Apply 2 g to affected area twice daily as needed. On left shoulder or 5th finger with joint pain carbamide peroxide (DEBROX) 6.5 % otic solution Use 5 Drops in both ears twice daily. atorvastatin (LIPITOR) 40 mg tablet Take 1 tablet by mouth once daily. famotidine (PEPCID) 40 mg tablet Take 1 tablet by mouth at bedtime as needed. For acid reflux vitamin b complex (B-COMPLEX) tab Take 1 tablet by mouth once daily. Cholecalciferol, Vitamin D3, 125 mcg (5,000 unit) cap Take 1 capsule by mouth once daily. glipiZIDE (GLUCOTROL XL) 10mg 24 hr tablet Take 1 tablet by mouth once daily. With supper acyclovir (ZOVIRAX) 800 mg tablet Take 1 tablet by mouth three times a day for 10 days. Take at first signs of outbreak. CPAP/BIPAP/OTHER Lower Settings to fixed pressure IPAP 12, EPAP min 6, PS 6 cm H2O, suitable mask per pt preference, chin strap, head gear, humidity, tubing, lifetime supplies. G47.33 MIKKI CPAP/BIPAP/OTHER Type .CPAPSettings into a note to see current settings/supplies/DME information. glipiZIDE (GLUCOTROL) 10 mg tablet Take 1 tablet by mouth once daily. tiZANidine (ZANAFLEX) 2 mg tablet Take 1-2 tablets by mouth at bedtime as needed. Muscle spasm, pain amitriptyline (ELAVIL) 25 mg tablet Take 1-2 tablets by mouth daily at bedtime. For insomnia mupirocin (BACTROBAN) 2 % ointment Apply to affected area twice daily as needed (skin infection). Tadalafil (CIALIS) 5 mg tablet Take 1 tablet by mouth as needed (sexual dysfunction). sodium chloride-aloe vera (AYR SALINE) topical nasal gel 1 application by INTRANASAL route at bedtime as needed (nasal dryness). Lancets (FREESTYLE LANCETS) [facility] lancets Use as instructed blood sugar diagnostic (FREESTYLE TEST) [facility] test strip Use as directed. Review of Systems: The remainder of the review of systems is negative. PE: 07/15/23 1536 BP: 130/80 Pulse: 68 Resp: 16 Temp: 36.3 C (97.3 F) TempSrc: Left Tympanic Weight: 126.6 kg (279 lb) Gen: A&O, NAD, non-toxic appearing, Pleasant, cooperative HEENT: NT/AC, PERRLA, wearing glasses, EOMs intact b/l, nares clear and patent b/l, pharynx without erythema, exudate or lesions. Uvula midline. MMM Neck: supple, No cervical LAD, no thyromegaly, no carotid bruits CV: RRR, normal S1 and S2, no murmurs, no gallops, no rubs, Pulses 2+ and symmetric in UE and LE b/l Lungs: normal respiratory effort, CTA b/l, no wheezing or rhonchi or rales Abd: soft, obese, NT, ND, +BS, no hepatosplenomegaly MS: FROM all 4 extremities Neuro: CN II-XII intact b/l, strength 5/5 b/l UE and LE, DTRs 2/4 UE and LE, sensation intact. Skin: warm, dry, intact, No rashes or lesions on exposed skin. Foot exam: no edema, normal pulses ASSESSMENT/PLAN: 1. Uncontrolled type 2 diabetes mellitus with hyperglycemia (HCC) - ICD9: 250.02, ICD10: E11.65 (primary diagnosis) - Uncontrolled, poor diet choices and non adherence to medication, restart sulfonylurea - Worsening control - Blood glucose monitoring on a three times daily schedule - able to check with insurance on other medication options for coverage - GLIPIZIDE ER 10 MG TABLET, EXTENDED RELEASE 24 HR 2. Trigeminal neuralgia of left side of face - ICD9: 350.1, ICD10: G50.0 rx prn, likely with trigeminal neuralgia at this time, no signs of shingles or stroke symptoms otherwise. - ACYCLOVIR 800 MG TABLET 3. Essential hypertension - ICD9: 401.9, ICD10: I10 - Controlled - Continue current medications - Recommend home blood pressure monitoring, to bring results to next visit - Encouraged sodium restriction, DASH or Mediterranean diet - Recommend regular aerobic exercise - Discussed need for and benefit of weight loss. BMI 41.00 kg/(m^2) - Reviewed risks of hypertension and principles of treatment 4. Vitamin B12 deficiency - ICD9: 266.2, ICD10: E53.8 Start on supplement Ean L Luu, DO To ER if develops chest pain, shortness of breath, or severe worsening of symptoms. Discussed risks, benefits, alternatives, and potential side effects of medications. Patient expressed understanding and agreed with the plan. Ean Luu DO [address] [place] [address] documented in this encounter [facility] 06-10-2023 Miscellaneous Notes Pt notified of instructions below. Pt verbalizes understanding. Imtiaz Marr LPN Please inform patient that his fasting labs and urine albumin are ordered to have drawn before his upcoming visit in office Ean Luu DO Has appt 07/15/23 & asking if he is due for labs? Please advise pt. Radha Loera LPN documented in this encounter [facility] 05-18-2023 Miscellaneous Notes Patient has been identified by name and date of : Yes Requested Prescriptions Pending Prescriptions Disp Refills allopurinol (ZYLOPRIM) 300 mg tablet 90 tablet 3 Sig: Take 1 tablet by mouth once daily. JACE-01/07/23 Labs-10/27/22 NOV-07/15/23 RX INSTRUCTIONS: Patient aware RX will be sent to pharmacy. No need to notify patient. Breann Mora documented in this encounter [facility] 04-24-2023 Miscellaneous Notes Patient calls and notified of provider response. Patient voiced understanding. Barb Duarte RN Left message to return call. This isn't a procedure that can be done without insurance coverage due to would then be out of pocket, unless this is what patient is interested in discussing with financial intern Ean Luu DO Patient reports he had a change of insurance and insurance denied the Bariatric procedure. Asking pcp if you know of any other options for him to get this procedure? Please advise patient. documented in this encounter [facility] 04-02-2023 Miscellaneous Notes Patient has been identified by name and date of : Yes Last office visit in this department: 01/07/2023 Labs-10/27/22 NOV-07/08/23 RX INSTRUCTIONS: Patient aware RX will be sent to pharmacy. No need to notify patient. Patient phones requesting refills as follows: Requested Prescriptions Pending Prescriptions Disp Refills metFORMIN ER (GLUCOPHAGE XR) 750 mg 24 hr tablet 180 tablet 1 Sig: Take 2 tablets with supper. Please review and advise. Deepa Salas documented in this encounter [facility] 02-28-2023 Miscellaneous Notes Noted, will await callback by patient or Ean Luu DO Pt states this is still gonna be 40.00 he can not afford. His is calling insurance today to see what they will cover and will call us back with information. Ok to change Farixiga to Jardiance Please inform Ean Luu DO The following approved medication requests have been transmitted electronically. Requested Prescriptions Signed Prescriptions Disp Refills empagliflozin (JARDIANCE) 25 mg tablet 30 tablet 5 Sig: Take 1 tablet by mouth once daily. Take 1 tablet once daily in the morning Authorizing Provider: EAN LUU DO Called patient per phone note 02/02 advised no longer has [employer] but chart no been updated. Received PA request from [employer] for Farxiga. Patient verified new insurance listed below. [facility] ID [id number] Group [id number] Member services# Farxiga is not covered and other formulary option is needed. Patient is on fixed income so if expensive still with insurance will not be able to afford. Advised would need to get prices from insurance since we are unsure cost. Please choose another formulary option -Nesina 6.25 mg, 12.5 mg, 25 mg -Jardiance 25 mg Tradjenta Onglyza 2.5 mg, 5 mg Shara Patel Ma documented in this encounter [facility] 02-25-2023 Miscellaneous Notes Order signed for pressure adjust. documented in this encounter [facility] 02-24-2023 Miscellaneous Notes Images from the original note were not included. documented in this encounter [facility] 02-09-2023 Miscellaneous Notes Pt informed, verbalized understanding. Lisa Valles The following approved medication requests have been transmitted electronically. Requested Prescriptions Signed Prescriptions Disp Refills glipiZIDE (GLUCOTROL) 10 mg tablet 30 tablet 11 Sig: Take 1 tablet by mouth once daily. Authorizing Provider: EAN LUU DO Please review provider message below for Januvia alternative. Pt uses DM. Katiana Dozier LPN LM for patients to contact office to inform of the below. Betzaida Hyman MA Can you please call the patient and significant other and let them know an alternative to Januvia could be Glipizide. This medication is usually relatively affordable. If they would like to add on this medication please verify pharmacy. Thank you. 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 Asking for something cheaper. Please advise . Mckenna Hopkins LPN documented in this encounter [facility] 01-07-2023 History of Present illness Narrative Patient presents with: F/U 3 Month HPI: Roe Interiano is a 47 year old male who presents to the office today for review of health conditions. Concerns today: Considering going through with a bariatric surgery. Recently had retesting for MIKKI and is waiting the 5-8 months to receive a new CPAP machine to control his MIKKI symptoms. Admits to poor diet choices. Not willing to currently have blood glucose and cholesterol rechecked. States there has been a lot of stress in his life with his 's uncle ill and hospitalized at this time. Mr. Interiano has past history of diabetes. Since our last visit he denies excessive thirst or increased frequency of urination, chest pain or dyspnea , new or unusual visual symptoms, and low sugar/hypoglycemic reactions. Depression- no. Follows a diabetic diet generally not very much. He is not compliant with medication(s) but is tolerating med(s) without any side effects. He reports checking his glucose on a infrequent to not at all basis schedule Patient's last HgA1C was Hemoglobin A1C (%) Date Value 10/27/2022 9.9 12/28/2021 8.5 09/02/2021 10.3 06/21/2021 9.6 Hemoglobin A1C (POCT) (%) Date Value 10/01/2022 9.8 ) Last Ophthalmology exam was within the past 12 months Mr. Interiano reports history of hyperlipidemia. Current therapy includes atorvastatin (Lipitor) 40 mg. Denies side effects of muscle weakness or achiness. His most recent lipid panels are reviewed. Cholesterol, Total (mg/dL) Date Value 10/27/2022 128 06/21/2021 144 HDL Cholesterol (mg/dL) Date Value 10/27/2022 31 06/21/2021 30 LDL Cholesterol Date Value 10/27/2022 Comment: Unable to calculate due to increased Triglycerides. See LDL-Chol, Direct. 06/21/2021 Unable to calculate due to increased Triglycerides. See LDL-Chol, Direct. mg/dL Triglyceride (mg/dL) Date Value 10/27/2022 408 06/21/2021 539 Mr. Interiano indicates a history of hypertension and states that he is feeling well and denies any symptoms referable to elevated blood pressure. Specifically denies headache, chest pain, palpitations, dyspnea, and peripheral edema. Patient denies any side effects of his medication(s) and is compliant with their regimen. Last 3 Encounter BP Readings: Date: BP: 01/07/2023 136/70 11/19/2022 136/84 10/01/2022 120/80 He watches his diet for sodium, low fat and low cholesterol generally not very much. He does not check BP's generally. Roe denies regular aerobic exercise. 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 Sebaceous cyst 01/25/2016 Sleep apnea Did not tolerate CPAP PAST SURGICAL HISTORY Procedure Laterality Date APPENDECTOMY EXCISION BENIGN LESIONS,SCALP,NECK,HANDS 01/18/2016 mid chest EYE SURGERY PROCEDURE 32 yrs ago pt not sure what was done REVISE MEDIAN N/CARPAL TUNNEL SURG Bilateral 2019 VASECTOMY UNI/BI SPX W/POSTOP SEMEN EXAMS Social History Tobacco Use Smoking status: Never Smokeless tobacco: Never Vaping Use Vaping Use: Never used Substance Use Topics Alcohol use: No Drug use: No FAMILY HISTORY Problem Relation Age of Onset Lipids Mother Prostate Cancer Father Diabetes Father Glaucoma Father Diabetes Maternal Grandmother Diabetes Paternal Grandmother DVT No Family History Allergies: ALLERGIES No Known Allergies Current Meds: CPAP/BIPAP/OTHER New set up: Settings IPAP max 20, EPAP min 7, PS 6 cm H2O, suitable mask per pt preference, chin strap, head gear, humidity, tubing, lifetime supplies. G47.33 MIKKI SITagliptin phosphate (JANUVIA) 100 mg tablet Take 1 tablet by mouth daily with dinner. atorvastatin (LIPITOR) 40 mg tablet Take 1 tablet by mouth once daily. dapagliflozin (FARXIGA) 10 mg tablet Take 1 tablet by mouth daily with dinner. For diabetes metFORMIN ER (GLUCOPHAGE XR) 750 mg 24 hr tablet Take 2 tablets with supper. famotidine (PEPCID) 40 mg tablet Take 1 tablet by mouth at bedtime as needed. For acid reflux vitamin b complex (B-COMPLEX) tab Take 1 tablet by mouth once daily. Cholecalciferol, Vitamin D3, 125 mcg (5,000 unit) cap Take 1 capsule by mouth once daily. tiZANidine (ZANAFLEX) 2 mg tablet Take 1-2 tablets by mouth at bedtime as needed. Muscle spasm, pain allopurinol (ZYLOPRIM) 300 mg tablet Take 1 tablet by mouth once daily. amitriptyline (ELAVIL) 25 mg tablet Take 1-2 tablets by mouth daily at bedtime. For insomnia lisinopril (ZESTRIL, PRINIVIL) 20 mg tablet Take 1 tablet by mouth once daily. mupirocin (BACTROBAN) 2 % ointment Apply to affected area twice daily as needed (skin infection). Tadalafil (CIALIS) 5 mg tablet Take 1 tablet by mouth as needed (sexual dysfunction). sodium chloride-aloe vera (AYR SALINE) topical nasal gel 1 application by INTRANASAL route at bedtime as needed (nasal dryness). Lancets (FREESTYLE LANCETS) [facility] lancets Use as instructed blood sugar diagnostic (FREESTYLE TEST) Misc test strip Use as directed. diclofenac (VOLTAREN ARTHRITIS PAIN) 1 % topical gel Apply 2 g to affected area twice daily as needed. On left shoulder or 5th finger with joint pain carbamide peroxide (DEBROX) 6.5 % otic solution Use 5 Drops in both ears twice daily. Review of Systems: The remainder of the review of systems is negative. PE: 01/07/23 1832 BP: 136/70 Pulse: 80 Resp: 20 Temp: 36.5 C (97.7 F) TempSrc: Left Tympanic Weight: 130.6 kg (288 lb) Gen: A&O, NAD, non-toxic appearing, cooperative HEENT: NT/AC, PERRLA, eyelid ptosis left >right, EOMs intact on left eye, visually impaired on right eye., nares clear and patent b/l, pharynx without erythema, exudate or lesions. Uvula midline Neck: supple, No cervical LAD, no thyromegaly, no carotid bruits CV: RRR, normal S1 and S2, no murmurs, no gallops, no rubs, Pulses 2+ and symmetric in UE and LE b/l Lungs: normal respiratory effort, CTA b/l, no wheezing or rhonchi or rales Abd: soft, central obesity, NT, ND, +BS, no hepatosplenomegaly MS: left finger index with DIP joint swelling / arthritis changes Neuro: CN II-XII intact b/l Skin: warm, dry, intact, No rashes or lesions on exposed skin. Foot exam: no edema, normal pulses ASSESSMENT/PLAN: 1. Uncontrolled type 2 diabetes mellitus with hyperglycemia (HCC) - ICD9: 250.02, ICD10: E11.65 (primary diagnosis) - Uncontrolled - Barriers to control: diet adherence and lack of exercise - Continue current medications - Blood glucose monitoring on a twice daily schedule - Counseled on healthy diet and regular exercise - Discussed need for and benefit of weight loss. BMI 42.32 kg/(m^2) 2. Chronic pain of both shoulders - ICD9: 719.41, 338.29, ICD10: M25.511, G89.29, M25.512 rx refilled, stable - DICLOFENAC 1 % TOPICAL GEL 3. Finger pain, left - ICD9: 729.5, ICD10: M79.645 rx prn use as d/w him today - DICLOFENAC 1 % TOPICAL GEL 4. Bilateral impacted cerumen - ICD9: 380.4, ICD10: H61.23 - rx refilled, stable. - CARBAMIDE PEROXIDE 6.5 % EAR DROPS 5. Hyperlipidemia with target LDL less than 100 - ICD9: 272.4, ICD10: E78.5 - suboptimal control - Continue current medication. - Encouraged following a low fat, low cholesterol diet. - Discussed the benefits of regular aerobic exercise and weight loss. 6. Obesity, Class III, BMI 40-49.9 (morbid obesity) (HCC) - ICD9: 278.01, ICD10: E66.01 Stable - Behavioral intervention, - PSMF, and - Eat well program Follow up with Bariatric specialist/surgeon 7. Fatigue, unspecified type - ICD9: 780.79, ICD10: R53.83 - chronic 8. Essential hypertension - ICD9: 401.9, ICD10: I10 - good control - Continue current medication(s) - Encouraged dietary sodium restriction/DASH diet - Recommended regular aerobic exercise. - Recommend home blood pressure monitoring, to bring results in on next visit - Discussed need and benefit for weight loss. - Goal of BP <130/80 9. MIKKI (obstructive sleep apnea) - ICD9: 327.23, ICD10: G47.33 - need for new CPAP, awaiting this Ean Luu DO To ER if develops chest pain, shortness of breath, or severe worsening of symptoms. Discussed risks, benefits, alternatives, and potential side effects of medications. Patient expressed understanding and agreed with the plan. Ean Luu DO [address] [place] [address] documented in this encounter [facility] 01-07-2023 Miscellaneous Notes Patient has been identified by name and date of : Patient phones for refill(s): Requested Prescriptions Pending Prescriptions Disp Refills lisinopril (ZESTRIL) 20 mg tablet [Pharmacy Med Name: lisinopril 20 mg tablet] 90 tablet 3 Sig: Take 1 tablet by mouth once daily. Date of last office visit in primary care: 10/01/22 Last 2 Encounter Wt Readings: Date: Wt: 12/01/2022 130 kg (286 lb 9.6 oz) 11/24/2022 130.6 kg (288 lb) Previous labs/tests for medication: Not applicable Please advise. Thank you. Patrick Leroy LPN documented in this encounter [facility] 01-06-2023 History of Present illness Narrative VIRTUAL VISIT PROGRESS NOTE This is a virtual visit using Me[employer]urMobile video visit. It required patient-provider interaction for the medical decision making as documented below. I have communicated my name and active licensure. The patient's identity and physical location were verified at the time of this visit. Either the patient or their legal passenger representative has been informed of the risks and benefits of -- and alternatives to -- treatment through a remote evaluation and consents to proceed with the evaluation remotely. Roe Interiano is a 47 year old male who is undergoing multidisciplinary evaluation for metabolic and bariatric surgery. At that time of my last visit the patient was undecided on procedure type. This visit is to evaluate studies obtained since the time of initial evaluation and to make a procedure choice. At the time of his initial visit he was interested in sleeve gastrectomy based on the recommendation of his primary care provider, not considered Costa-en-Y gastric bypass. His individual metabolic risk score was 72 which favors Costa-en-Y gastric bypass for resolution of type 2 diabetes. He was last seen on 11/04/2022 for his initial visit. The following results have been obtained in the interim: Sleep study completed with reconfirmed diagnosis of obstructive sleep apnea recommended auto bilevel PAP. Still awaiting machine, was told several month wait for supplies from [facility] pattern lease inspector. The following he has followed up with psychology nutrition is scheduled. We had a lengthy discussion including the following specific concerns that he brought up. Concerned about time off work. Had been told 4-6 weeks by others in the program. 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 's uncle just had complications from a shoulder surgery. This has increased apprehension around surgery. He does note that this for July did have alcohol use disorder and was a smoker and he wonders if those 2 factors played into his postoperative complications. Patient reported weight today is unchanged. 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 Sebaceous cyst 01/25/2016 Sleep apnea Did not tolerate CPAP PAST SURGICAL HISTORY Procedure Laterality Date APPENDECTOMY EXCISION BENIGN LESIONS,SCALP,NECK,HANDS 01/18/2016 mid chest EYE SURGERY PROCEDURE 32 yrs ago pt not sure what was done REVISE MEDIAN N/CARPAL TUNNEL SURG Bilateral 2019 VASECTOMY UNI/BI SPX W/POSTOP SEMEN EXAMS FAMILY HISTORY Problem Relation Age of Onset Lipids Mother Prostate Cancer Father Diabetes Father Glaucoma Father Diabetes Maternal Grandmother Diabetes Paternal Grandmother DVT No Family History Social History Tobacco Use Smoking status: Never Smokeless tobacco: Never Vaping Use Vaping Use: Never used Substance Use Topics Alcohol use: No Drug use: No Current Outpatient Medications Medication Sig CPAP/BIPAP/OTHER New set up: Settings IPAP max 20, EPAP min 7, PS 6 cm H2O, suitable mask per pt preference, chin strap, head gear, humidity, tubing, lifetime supplies. G47.33 MIKKI SITagliptin phosphate (JANUVIA) 100 mg tablet Take 1 tablet by mouth daily with dinner. atorvastatin (LIPITOR) 40 mg tablet Take 1 tablet by mouth once daily. dapagliflozin (FARXIGA) 10 mg tablet Take 1 tablet by mouth daily with dinner. For diabetes metFORMIN ER (GLUCOPHAGE XR) 750 mg 24 hr tablet Take 2 tablets with supper. famotidine (PEPCID) 40 mg tablet Take 1 tablet by mouth at bedtime as needed. For acid reflux vitamin b complex (B-COMPLEX) tab Take 1 tablet by mouth once daily. Cholecalciferol, Vitamin D3, 125 mcg (5,000 unit) cap Take 1 capsule by mouth once daily. tiZANidine (ZANAFLEX) 2 mg tablet Take 1-2 tablets by mouth at bedtime as needed. Muscle spasm, pain allopurinol (ZYLOPRIM) 300 mg tablet Take 1 tablet by mouth once daily. amitriptyline (ELAVIL) 25 mg tablet Take 1-2 tablets by mouth daily at bedtime. For insomnia lisinopril (ZESTRIL, PRINIVIL) 20 mg tablet Take 1 tablet by mouth once daily. mupirocin (BACTROBAN) 2 % ointment Apply to affected area twice daily as needed (skin infection). diclofenac (VOLTAREN ARTHRITIS PAIN) 1 % topical gel Apply 2 g to affected area twice daily as needed. On left shoulder or 5th finger with joint pain Tadalafil (CIALIS) 5 mg tablet Take 1 tablet by mouth as needed (sexual dysfunction). (Patient not taking: Reported on 11/19/2022) carbamide peroxide (DEBROX) 6.5 % otic solution Use 5 Drops in both ears twice daily. sodium chloride-aloe vera (AYR SALINE) topical nasal gel 1 application by INTRANASAL route at bedtime as needed (nasal dryness). Lancets (FREESTYLE LANCETS) [facility] lancets Use as instructed blood sugar diagnostic (FREESTYLE TEST) [facility] test strip Use as directed. No current facility-administered medications for this visit. ALLERGIES No Known Allergies REVIEW OF SYSTEMS: GENERAL: Sleepiness HEENT: denies ANN, change in hearing or vision, no other ENT complaints NECK: denies swelling or pain in neck RESPIRATORY: no cough, no wheezing or shortness of breath CARDIOVASCULAR: no chest pain, no palpitations GI: normal appetite, tolerating PO well, BMs normal, and no abdominal pain MUSCULOSKELETAL: denies any painful or swollen joints, no muscle aches PSYCH: denies depressed or anxious mood, sleep is normal HEMATOLOGY/LYMPHOLOGY: negative for prolonged bleeding, no swollen lymph nodes ENDOCRINE: denies cold/heat intolerance, denies polyuria or polydipsia, no goiter NEURO: no numbness or paresthesias and no weakness of the extremities PHYSICAL EXAMINATION: VIDEO EXAM: (if completed, performed via video enabled technology) No exam performed ASSESSMENT: Roe Interiano No diagnosis found. PLAN: Roe Interiano is a 47 year old male with the following diagnosis and co-morbidities: type 2 diabetes mellitus, dyslipidemia, and obstructive sleep apnea BMI: 42.11 kg/m2 We had a lengthy discussion regarding the various options for metabolic and bariatric surgery. This included longitudinal sleeve gastrectomy and Costa en Y gastric bypass. Based on the patient's comorbidities we discussed that my recommendation for procedure would be Costa en Y gastric bypass based on his individualized metabolic risk score. Risks, benefits, outcomes, follow up and expectations of longitudinal sleeve gastrectomy and Costa en Y gastric bypass procedures were discussed in detail. Specifically, (1) we talked about the increased risk of nutritional deficiencies and marginal ulcer formation with the gastric bypass, and how medications like ASA and NSAIDS are not to be used after gastric bypass. (2) There is a lifelong risk of internal hernia formation from a gastric bypass, related to the spaces created when the intestines are rerouted, though these spaces are routinely closed at the time of surgery. (3) We also discussed the possibility of developing GERD (or worsening of GERD if already a pre-existing condition) after sleeve gastrectomy, and how ASA and NSAIDS are acceptable after sleeve gastrectomy. (4) The patient understands that if medical therapy fails for marginal ulcer or GERD, then surgical therapy may be needed. (5) The patient also understands that the weight loss after a sleeve gastrectomy may be 10% lower than that of a gastric bypass (on average); however, there are more surgical options for a secondary bariatric procedure after sleeve gastrectomy. After our discussion, patient states he has selected Costa en Y gastric bypass as their preferred procedure. Additional items needed to prepare for selected surgical procedure: none We discussed importance of using CPAP in immediate and early postop period and explained that MIKKI can be a life threatening condition. He is still awaiting a device from the DME supplier, and was apparently told that this could be 8 months. I will message the sleep medicine team to see if there is any alternative to move this forward. He has at least 3-4 more visits with the nutrition team to meet insurance criteria. In terms of post operative recovery. My recommendation is to anticipate at least 1 preferably 2 weeks fully off work to concentrate on postoperative recovery meeting protein goals and fluid intake goals in the first couple of weeks. At 2 weeks some people are able to return to desk based jobs. There would be a total of 4-week restriction of lifting weight of no more than 15 pounds. I spent a total of 45 minutes on the date of the service which included preparing to see the patient, [id number] patient care, completing clinical documentation, counseling and educating the patient/family/caregiver, communicating with other HCPs (not separately reported), communicating results to the patient/family/caregiver, and care coordination (not separately reported) Sathish Martínez MD 01/06/2023 9:02 AM documented in this encounter [facility] 12-10-2022 Miscellaneous Notes Called and left patient a voicemail and sent DataPad message Patient called regarding his CPAP machine. He spoke to the [employer] company and they told him it would take 6-8 months to receive. Patient's insurance is running out at the end of the month. Patient asking if you can please contact the [employer] company. documented in this encounter [facility] 12-01-2022 History of Present illness Narrative Sleep Study Check-In Documentation Date: December 01, 2022 Name: Roe Interiano Patient was accompanied by Self. Location: [place] Latex allergy: No Tape allergy: No Current medications were reviewed with the patient:Yes Sleep aid taken by patient for the sleep study: [place] of sleep aid: Not Applicable Procedure was explained to the patient and all questions were answered. PAP treatment discussed and shown to patient: Yes If PAP used enter mask info: Mask Name Ramon Guaman F&P MaskTypeNasal Mask SizeMedisandra Magana Sharp Used No Knowledge Program (KP): KP was not completed in epic by patient and accepted Study type: PAP titration Adverse Event: No (If yes create a new abstract) Comments: Patient was advised to follow up with their ordering provider regarding test results Carlota Shabazz documented in this encounter [facility] 11-24-[address] - 11/24/2022 8:54 AM EST Nutrition Intervention 11/24/2022: Modify type and amount of foods consumed for meals and snacks 1. Read Nutritional Guidelines Section of Your Guide to Surgery by next session [email or web address] en 2. Do not skip meals. 3. Use protein shake 1x per day to replace any skipped meals or for breakfast. Aim for shakes ~150-200 calories, ~15-20 grams of protein, <5 grams of total sugar. Here are a few examples of approved options for the 2 week pre-op liquid diet: Slim Fast Advanced Nutrition, [place] Breakfast Essentials Light Start mixed with fat free milk, Atkins, Boost Glucose Control, Owyn 4. Use the Healthy Plate Method of portion control for lunch and dinner 4 oz lean meat (fish, chicken, pork tenderloin, turkey, seafood, eggs/cheese) 1/2 plate non starchy vegetables (salad, greens, cabbage, spinach, brussels sprouts, broccoli, carrots, celery, peppers, green beans, cauliflower) 1 cup starch/starchy vegetables (corn, peas, beans, winter squash, sweet potato, brown rice, whole grain pasta, whole grain bread products, quinoa) 5. Physical activity: Aim for 150 minutes of physical activity per week. Include 10-20 minutes of strength/resistance exercise 2-3x/week. 6. Drink 64 ounces per day water. Fluids should follow these guidelines: No carbonation, no caffeine, no calories, no alcohol. 7. Start to explore post surgery bariatric vitamins/minerals: (2) children's chewable Multivitamin complete (morning) OR (2) adult Centrum Chewable complete multivitamin, Iron supplement 18mg (morning), Vit B12 500 mcg sublingual pill or liquid (morning), and calcium citrate w/Vit D 600 mg at lunch and 600 mg at dinner. Additional 2000 IU Vit D3 daily, B complex with 75-100 mg Thiamine *It is ok to take a combination bariatric vitamin to limit pill volume. Here are a few options to consider: - Bariatric Fusion: 4 Complete Multivitamin chewables per day (2 in the AM, 2 in the PM) OR 2 Multivitamin soft chews per day + 3 calcium chews + 1 iron soft chew [email or web address] - Procare Health: 1 Bariatric Multivitamin (capsule or chewable) and 5988-4786 mg Calcium Citrate per day [email or web address] Polymers - Bariatric Choice: 1 Bariatric Multivitamin capsule and 2322-6775 mg Calcium Citrate per day OR 4 Complete Multivitamin chewables per day [email or web address] - Bariatric Advantage: 2 Multivitamin chewables and 3 Calcium Citrate chewables per day [email or web address] - Celebrate: 2 Multivitamin (chewables) OR 3 Multivitamin (capsules) PLUS 3 Calcium Citrate soft chews per day AND Iron (chewable, capsule, or soft chew for a total of 45-60 mg per day) www.[email or web address] - Bariatric Pal: 1 Bariatric Multivitamin capsule and 5155-7486 mg Calcium Citrate per day [email or web address] [email or web address] Take multivitamin with iron 2 hours apart from calcium citrate, and take each dose of calcium 4 hours apart from each other Pre-op goal weight: 276 pounds Protein needs: 92 gm per day Nutrition Monitoring & Evaluation: 1-2 lbs wt loss/week Need for Follow up: 1 month, scheduling [phone] documented in this encounter [facility] 11-24-2022 Miscellaneous Notes Pt said he needed to think it over and he will discuss it with provider at his December appointment. Please inform patient that I would like him to have a colonoscopy for colon cancer screening Ean Luu DO documented in this encounter [facility] 11-24-2022 History of Present illness Narrative [facility] Nutrition Therapy: Virtual Consult - Initial Assessment This visit was performed virtually due to the COVID-19 epidemic as an effort to protect patients and minimize exposure. Consent from patient received to conduct visit virtually. This Team Access Model visit is a virtual encounter. It required patient-provider interaction for the medical decision making as documented below. Nutrition Diagnosis: Overweight/obesity, related to, food/nutrition - related knowledge deficit, as evidenced by BMI above normative standard for age and gender. RECOMMENDED MALNUTRITION DIAGNOSIS: NO MALNUTRITION IDENTIFIED NUTRITION CARE PLAN Nutrition Intervention 11/24/2022: Modify type and amount of foods consumed for meals and snacks 1. Read Nutritional Guidelines Section of Your Guide to Surgery by next session [email or web address]?la= en 2. Do not skip meals. 3. Use protein shake 1x per day to replace any skipped meals or for breakfast. Aim for shakes ~150-200 calories, ~15-20 grams of protein, <5 grams of total sugar. Here are a few examples of approved options for the 2 week pre-op liquid diet: Slim Fast Advanced Nutrition, [place] Breakfast Essentials Light Start mixed with fat free milk, Atkins, Boost Glucose Control, Owyn 4. Use the Healthy Plate Method of portion control for lunch and dinner 4 oz lean meat (fish, chicken, pork tenderloin, turkey, seafood, eggs/cheese) 1/2 plate non starchy vegetables (salad, greens, cabbage, spinach, brussels sprouts, broccoli, carrots, celery, peppers, green beans, cauliflower) 1 cup starch/starchy vegetables (corn, peas, beans, winter squash, sweet potato, brown rice, whole grain pasta, whole grain bread products, quinoa) 5. Physical activity: Aim for 150 minutes of physical activity per week. Include 10-20 minutes of strength/resistance exercise 2-3x/week. 6. Drink 64 ounces per day water. Fluids should follow these guidelines: No carbonation, no caffeine, no calories, no alcohol. 7. Start to explore post surgery bariatric vitamins/minerals: (2) children's chewable Multivitamin complete (morning) OR (2) adult Centrum Chewable complete multivitamin, Iron supplement 18mg (morning), Vit B12 500 mcg sublingual pill or liquid (morning), and calcium citrate w/Vit D 600 mg at lunch and 600 mg at dinner. Additional 2000 IU Vit D3 daily, B complex with 75-100 mg Thiamine *It is ok to take a combination bariatric vitamin to limit pill volume. Here are a few options to consider: - Bariatric Fusion: 4 Complete Multivitamin chewables per day (2 in the AM, 2 in the PM) OR 2 Multivitamin soft chews per day + 3 calcium chews + 1 iron soft chew [email or web address] - Procare Health: 1 Bariatric Multivitamin (capsule or chewable) and 7731-4397 mg Calcium Citrate per day [email or web address] Polymers - Bariatric Choice: 1 Bariatric Multivitamin capsule and 3112-0105 mg Calcium Citrate per day OR 4 Complete Multivitamin chewables per day [email or web address] - Bariatric Advantage: 2 Multivitamin chewables and 3 Calcium Citrate chewables per day [email or web address] Polymers - Celebrate: 2 Multivitamin (chewables) OR 3 Multivitamin (capsules) PLUS 3 Calcium Citrate soft chews per day AND Iron (chewable, capsule, or soft chew for a total of 45-60 mg per day) [email or web address] Polymers - Bariatric Pal: 1 Bariatric Multivitamin capsule and 0209-7993 mg Calcium Citrate per day www.[email or web address] [email or web address] Take multivitamin with iron 2 hours apart from calcium citrate, and take each dose of calcium 4 hours apart from each other Pre-op goal weight: 276 pounds Protein needs: 92 gm per day Nutrition Monitoring & Evaluation: 1-2 lbs wt loss/week Need for Follow up: 1 month, scheduling [phone] Patient presents for initial nutrition consult in preparation for bariatric surgery. Patient is interested in undecided (Dr. Martínez). Height and weight discussed today. Presents with Class III obesity, Body mass index is 42.53 kg/m . Significant medical comorbidities include HTN, HLD, type 2 diabetes, MIKKI, GERD. Patient does not have a set weight goal following surgery. Patient has basic understanding of weight loss surgery and nutritional implications following surgery. Previous diet attempts include Slimgenics, keto. Weight history significant for adult onset weight gain. Greatest barrier to weight loss in the past has been n/a. Greatest motivation for surgery includes improved health, get off diabetes medications. Diet recall indicates consistent meal pattern with no skipped meals. Patient endorses regular consumption of fast food and processed snacks contributing to excess calorie intake. Meals are not well balanced and often lack lean protein source and non starchy vegetables (only likes green beans and salad). Fluids consumed include coffee, diet pop and insufficient water. 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 [place] body weight: 169 lbs. Excess body weight: 119 lbs. Goal weight pre-op: 276 lbs. Protein needs estimated: 92 gm (1.2 g protein/kg IBW) Patient meets the National Institutes of Health guidelines for weight loss surgery and has [employer] Insurance therefore is required to complete 6 months of Nutrition Intervention for clearance for surgery. Today is visit 2 out of 6 ([place] 10/24/22, Ariana 11/24/22). Patient's symptoms are: Weight Concerns: weight gain Diet History: Breakfast - instant oatmeal, or [employer] breakfast sandwich Snack - nuts, or cookies, or apple Lunch - sandwich and chips, or leftovers Snack - chips or fruit Dinner - chicken or beef w/ potato and sometimes green beans, eats out 3-4x/week fast food or restaurant Snack - grapes or chips, bowl of cereal Beverages - 2 bottles diet pop, 1-2 cups coffee w/ cream and sweet n low, hot tea, 5-6 glasses water Alcohol- none Vitamins/Supplements - Vit B12, Vit D Activity: Activities of Daily Living: Active <25% of the day. 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 Resting Metabolic Rate: 2198 Malnutrition Screening Significant unintentional weight loss? No Eating less than 75% of usual intake for more than 2 weeks? No Potential Signs of Inflammation: no identifiable sources Education Materials Provided: BMI Nutrition Guidelines and Vitamins & Minerals after Gastric Bypass or Gastric Sleeve, Healthy Lunch/Dinner Plate, Healthy Snacks, and Lean Protein Foods, and Smart Choices Dining Out READINESS TO LEARN Cognitive ability: Alert and oriented Motivation to learn: Interested Family support: Unable to assess - Family not present Instruction provided to: Patient Patient learns best by: Multiple Methods Factors affecting learning: None Physical limitations affecting learning: None Referred by: Mauricio ZENDEJAS Billing Type: Initial Assess/15 min 2 units SIGNATURE: Carrie [address] RD PATIENT NAME: Roe Interiano DATE: 11/24/2022 TIME: 3:14 PM documented in this encounter [facility] 11-19-2022 Instructions Margaret Fofana APRN.SOLE CONFORMING MACHINE OPERATOR - 11/19/2022 2:35 PM EST PLAN: - Will start Auto Bilevel PAP - I will have a prescription sent to a [employer] company - Miya Leggett - who will be calling you in the next 1-2 weeks or so. Please call them directly or us if you do not hear from them in this time frame. - You should be eligible for new supplies approximately every 3-6 months, depending on your insurance coverage. - If your mask doesn't fit well, call the [employer] company before 30 days are up to get a new mask without an additional charge. - Insurance requires regular usage and periodic office follow ups for PAP therapy, to continue to cover supplies. INSURANCE REQUIREMENTS: - Your insurance requires a [id number] follow up visit within a 31-90 day period after starting CPAP. - Your insurance requires compliance with CPAP, which is at least 4 hours per night for 70% of the time. This must be done over a 30 day period and must occur within the initial 31-90 day period after starting CPAP. - Your insurance also requires at least yearly follow ups to continue to pay for CPAP supplies. - Any appointments can be scheduled through the central scheduling system for the [facility] at [phone]. - If you are a [facility] patient, call [phone] for questions - Any other locations you have seen me at, please call [phone] opt [phone] for questions. - May use Message My Doc through My Chart for questions. - [facility] website: [email or web address] About Your PAP Therapy Continuous Positive Airway Pressure/Bilevel Therapy You have been prescribed Positive Airway Pressure (PAP) therapy to treat sleep apnea. The most common type of sleep apnea is obstructive sleep apnea (MIKKI), a condition in which the upper airway collapses during sleep. This obstruction keeps air from getting into your lungs. The prescribed PAP machine (CPAP or Bilevel or ASV) will smoothly blow air into your airway to prevent it from closing. The machine will use a mask to deliver the air through your nose and/or mouth. These devices are available in various sizes and styles. It will take some time for you to get used to the new equipment and it may take a while for you to begin to feel the benefits of PAP therapy. Please be patient. If you are having problems adjusting to your machine, please contact us for help. Beginning your PAP Therapy Assembly: Place your PAP machine on a level surface near your bed. To prevent injury, do not place the machine higher than your head. Keep the machine at least 12 inches away from anything that may block the vents. Plug the machine into a properly grounded electrical outlet. It is better to avoid using an extension cord. If necessary, use a heavy-duty one. If you are NOT using a humidifier with you PAP equipment: Attach one end of your 6-foot tubing to the PAP unit outlet and the other end to your mask. (If your mask does not have a built-in exhalation port, a special exhalation valve should be used between the mask and the 6-foot tubing.) Attach the headgear to your mask. If you are using a humidifier with your PAP equipment: Fill the humidifier with DISTILLED water to the maximum fill line. Attach the humidifier to the PAP unit s outlet as instructed by the respiratory therapist with your home care company. Attach one end of your 6-foot tubing to the humidifier outlet and the other end to your mask. (If your mask does not have a built-in exhalation port, a special exhalation valve should be used between the mask and the 6-foot tubing.) If you have been prescribed oxygen to be used with the PAP machine, you will be instructed on how to attach your oxygen tubing. Always turn off the oxygen tank before turning off your PAP machine. Getting Started: Wash your face and apply the mask and headgear as instructed by the instructional design technologist or respiratory therapist. The mask should fit snugly to prevent air leaks, but not so tight as to cause skin irritation or discomfort. Turn the PAP power switch to the ON position. You should feel air blowing through the mask. Breathe normally and adjust the mask gently if you feel an air leak. If there are no leaks, activate the ramp feature on your PAP machine. The ramp allows a lower pressure to be delivered for a designated period of time (usually 5 to 45 minutes) to allow you to relax and fall asleep more easily. The pressure will then gradually increase to the prescribed pressure that controls your apnea. Remember to turn OFF your PAP unit when it is not in use. Care and Maintenance Headgear should be washed as needed. Daily inspection and weekly washings are recommended. Do not disassemble the straps. Machine wash in warm water, making sure to attach Velcro hooks and tabs before washing. Line dry or machine dry on a low setting. Masks should be washed every other day. Daily inspection is recommended. Leave the mask and tubing attached. Gently wash the mask with a soft cloth using warm water and mild detergent, concentrating on the mask cushion flaps. DO NOT use alcohol or bleach. Rinse thoroughly and air dry. Tubing should be washed every other day. Daily inspection is recommended. Wash in warm water and mild detergent and rinse thoroughly. Hook the tubing to the machine and blow until dry. Humidifier should be washed daily and filled with DISTILLED water before use. Wash with warm water and mild detergent. Disinfect weekly by soaking with a solution of 1 part white vinegar and 3 parts water for 30 minutes. Rinse thoroughly and air dry. Disposable filters should be replaced once a month. Wash reusable foam filters with warm water and mild detergent at least once a month. Rinse thoroughly and dry with paper towels. Avoid materials planner/production planner that contain fragrance or conditioners, as these will leave a residue. NEVER iron any soft goods. Troubleshooting If the machine fails to turn on: Make sure that the PAP machine is plugged into a grounded outlet. Make sure that the ON/OFF switch is in the ON position. Make sure that the wall outlet has power. If there is no pressure coming from your machine: Make sure that the inlet filter is clean and unblocked. Make sure that the cooling fan is unblocked and that air is flowing freely. Make sure that all tubing is securely connected. If your PAP machine still fails to operate, please call [phone] or your home care company for assistance. What You Should Know About Insurance There are many different insurance policies and coverage for PAP equipment will vary. Find out what your coverage provides and what your responsibilities are as a consumer. PAP therapy equipment is considered Durable Medical Equipment (DME). Here are a few questions to ask your insurance provider. What benefits do I have for DME? Do I have a deductible and/or co pay for DME? Is there a repair or replacement plan for durable medical equipment? How often can I receive a replacement mask, tubing, headgear and filters? Do I have to demonstrate that I am using my PAP device? How do I do that? Important Information It is very important to keep your PAP equipment and supplies clean. The life of the supplies depends on the care they receive. Under normal circumstances, expect the mask and headgear to last 9-12 months. Refer to the agricultural extension educator s manual for more information. Important Safety Reminders Keep equipment free from obstruction. Use your PAP equipment as directed. DO NOT try to adjust your pressure setting. DO NOT block the exhalation port or valve. Keep filters clean to prevent overheating. If a humidifier is being used, place it at a level lower than your head. If using a heated humidifier, allow unit to cool before cleaning or refilling. Follow safety guidelines regarding oxygen equipment.DO NOT operate multiple electrical devices from one outlet. If you have a medical emergency, contact the Emergency Medical Services. Below are the links to follow to watch a PAP education video: http://my.[facility].org/jenny e_care/services/home_respiratory_ therapy.aspx http://www.youtube.com/watch?v=ramses J_epDGzEw http://my.[facility].org/bere rological_institute/sleep-disorde rs-center/treatment-services/pap- therapy.aspx documented in this encounter [facility] 11-19-2022 History of Present illness Narrative Images from the original note were not included. [facility] New Patient Evaluation PATIENT NAME: Roe Interiano DATE OF SERVICE: November 19, 2022 CONSULTING PROVIDER: Reba Vaughan [address] [facility] [address] REASON FOR CONSULT: Reba Vaughan sends the patient for an opinion about MIKKI and treatment. My findings and recommendations will be transmitted electronically via shared medical record to the consulting provider. HPI: Roe Interiano is a 47 year old male with past medical history of Anxiety, Diabetes mellitus type II, GERD, Hyperlipidemia, Hypertension, Insomnia, Morbid obesity, & Obstructive sleep apnea. His sleep-related history includes sleepiness, fatigue, snoring, multiple awakenings from sleep, and waking up with dry mouth/sore throat. He was previously diagnosed with MIKKI, and was not able to tolerate PAP. Their previous test results are not available for review. He states he was on BiPAP through [employer], but insurance changed and no longer receiving supplies. He had a mask that was improper fit and just ultimately stopped use. SLEEP-WAKE SCHEDULE Bedtime: 10-11 PM. Latency: awhile Wake time: 730 AM, with an alarm. Nocturnal wakings: 2-4 for BRB On weekends, he tends to sleeps until 9-10 AM. Average total sleep time (in a 24 hour period): ?? hours. He does take naps. Frequency: occasionally or on sundays, Duration: 60 minutes. Naps are sometimes refreshing. Preferred sleep position: side or back Breathing disturbances and other behaviors during sleep: snoring and stopping breathing during sleep. WAKE-RELATED DETAILS He works but is not a shift worker. He does not have difficulty with memory or concentration. He denies falling asleep or dozing off when driving. Has been drowsy. He does drink 4-5 servings of pop, 2 servings of coffee caffeinated beverages per day. There has not been a recent change in weight. Excessive Daytime sleepiness/fatigue has been a problem for several years There is a history of head injury (age 6) prior to the start of daytime sleepiness. SLEEP DISORDER SYMPTOMS He does not report having an urge to move the legs in the evening (when resting) that is accompanied or caused by uncomfortable and/or unpleasant sensations in the legs. He has not been told that he has leg kicking during sleep. He denies any history of parasomnias. OTHER SLEEP BEHAVIORS/COMPLAINTS: Bruxism: No Anxiety or rumination: No GERD or aspiration: Yes Waking up with heart pounding or racing: No SLEEP FUNCTIONAL OUTCOME MEASURES Not completed PAST TREATMENTS: Bilevel PAP PRIOR SLEEP STUDIES: On file, reviewed with patient 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 Sebaceous cyst 01/25/2016 Sleep apnea Did not tolerate CPAP PAST SURGICAL HISTORY Procedure Laterality Date APPENDECTOMY EXCISION BENIGN LESIONS,SCALP,NECK,HANDS 01/18/2016 mid chest EYE SURGERY PROCEDURE 32 yrs ago pt not sure what was done REVISE MEDIAN N/CARPAL TUNNEL SURG Bilateral 2019 VASECTOMY UNI/BI SPX W/POSTOP SEMEN EXAMS ACTIVE PROBLEM LIST Morbid Obesity (Hcc) Anxiety Hypertension Hyperlipidemia With Target Ldl Less Than 100 Diabetes Mellitus Type 2, Uncontrolled, Without Complications Gout Fatigue Obesity, Class Iii, Bmi 40-49.9 (Morbid Obesity) ([facility]) Acute Bursitis of Right Shoulder Essential Hypertension Uncontrolled Type 2 Diabetes Mellitus Without Complication, Without Long-Term Current Use of Insulin Mikki (Obstructive Sleep Apnea) Ed (Erectile Dysfunction) of Organic Origin Diabetes Mellitus Type 2 With Ketoacidosis, Uncontrolled (Hcc) Uncontrolled Type 2 Diabetes Mellitus With Hyperglycemia ([facility]) Chronic Insomnia Finger Pain, Left Chronic Pain of Both Shoulders Actinic Keratosis Carpal Tunnel Syndrome, Bilateral Vitamin D Deficiency Gerd Without Esophagitis Diabetes Mellitus Type 2, Controlled, Without Complications ([facility]) Lung Nodules Allergies As of Date: 11/19/2022 (No Known Allergies) Fully Assessed 11/19/2022 CURRENT MEDICATIONS: SITagliptin phosphate (JANUVIA) 100 mg tablet Take 1 tablet by mouth daily with dinner. atorvastatin (LIPITOR) 40 mg tablet Take 1 tablet by mouth once daily. dapagliflozin (FARXIGA) 10 mg tablet Take 1 tablet by mouth daily with dinner. For diabetes metFORMIN ER (GLUCOPHAGE XR) 750 mg 24 hr tablet Take 2 tablets with supper. famotidine (PEPCID) 40 mg tablet Take 1 tablet by mouth at bedtime as needed. For acid reflux vitamin b complex (B-COMPLEX) tab Take 1 tablet by mouth once daily. Cholecalciferol, Vitamin D3, 125 mcg (5,000 unit) cap Take 1 capsule by mouth once daily. tiZANidine (ZANAFLEX) 2 mg tablet Take 1-2 tablets by mouth at bedtime as needed. Muscle spasm, pain allopurinol (ZYLOPRIM) 300 mg tablet Take 1 tablet by mouth once daily. amitriptyline (ELAVIL) 25 mg tablet Take 1-2 tablets by mouth daily at bedtime. For insomnia lisinopril (ZESTRIL, PRINIVIL) 20 mg tablet Take 1 tablet by mouth once daily. mupirocin (BACTROBAN) 2 % ointment Apply to affected area twice daily as needed (skin infection). diclofenac (VOLTAREN ARTHRITIS PAIN) 1 % topical gel Apply 2 g to affected area twice daily as needed. On left shoulder or 5th finger with joint pain carbamide peroxide (DEBROX) 6.5 % otic solution Use 5 Drops in both ears twice daily. sodium chloride-aloe vera (AYR SALINE) topical nasal gel 1 application by INTRANASAL route at bedtime as needed (nasal dryness). Lancets (FREESTYLE LANCETS) Misc lancets Use as instructed blood sugar diagnostic (FREESTYLE TEST) Misc test strip Use as directed. Tadalafil (CIALIS) 5 mg tablet Take 1 tablet by mouth as needed (sexual dysfunction). (Patient not taking: Reported on 11/19/2022) REVIEW OF SYSTEMS SLEEP RELATED ROS GENERAL: See HPI RESPIRATORY: negative dyspnea CARDIOVASCULAR: negative chest pain GI: positive GERD : positive nocturia SKIN: positive mask irritation PSYCH: negative depression and suicidal thoughts ENDOCRINE: negative thyroid problems NEURO: negative memory problems All other systems reviewed and are negative. SOCIAL HISTORY Social History Tobacco Use Smoking status: Never Smokeless tobacco: Never Vaping Use Vaping Use: Never used Substance Use Topics Alcohol use: No Drug use: No FAMILY HISTORY FAMILY HISTORY Problem Relation Age of Onset Lipids Mother Prostate Cancer Father Diabetes Father Glaucoma Father Diabetes Maternal Grandmother Diabetes Paternal Grandmother DVT No Family History PHYSICAL EXAMINATION: Vital Signs: BP 136/84 (BP Site: Left Arm, BP Position: Sitting, BP Cuff Size: Large Adult) Pulse 76 Ht 175.3 cm (5' 9) Wt 132.5 kg (292 lb 3.2 oz) SpO2 97% BMI 43.15 kg/m PHYSICAL EXAM: General appearance: NAD, attire appropriate per season Mental status: A & O X3 Speech: Clear & Coherent Constitutional: Overweight Skin: W/D/I on exposed skin Neuro: Gait stable, hearing intact to conversation IMPRESSION/PLAN: G47.33 MIKKI (obstructive sleep apnea) (primary encounter diagnosis) I10 Primary hypertension E66.01 Obesity, Class III, BMI 40-49.9 (morbid obesity) ([facility]) Roe Interiano is a 47 year old male with past medical history of Anxiety, Diabetes mellitus type II, GERD, Hyperlipidemia, Hypertension, Insomnia, Morbid obesity, & Obstructive sleep apnea. His sleep-related history includes sleepiness, fatigue, snoring, multiple awakenings from sleep, and waking up with dry mouth/sore throat. He was previously diagnosed with MIKKI, and was not able to tolerate PAP. Their previous test results are not available for review. He states he was on BiPAP through [employer], but insurance changed and no longer receiving supplies. He had a mask that was improper fit and just ultimately stopped use. Discussed with patient: the physiology of OSAS, medical conditions associated with OSAS (DM, HTN, CAD, Depression, Stroke, Headache, [place]) and treatment options (UPPP, Dental appliances, CPAP, Inspire). Advised patient to avoid activities that could harm self or others when tired/sleepy, including driving and/or operating heavy machinery. - PAP titration study per insurance requirement and assess need for BiPAP therapy - Will start Auto Bilevel PAP after results of PAP titration - I will have a prescription sent to a [employer] company - [employer] - who will be calling you in the next 1-2 weeks or so. Please call them directly or us if you do not hear from them in this time frame. - You should be eligible for new supplies approximately every 3-6 months, depending on your insurance coverage. - If your mask doesn't fit well, call the DME company before 30 days are up to get a new mask without an additional charge. - Insurance requires regular usage and periodic office follow ups for PAP therapy, to continue to cover supplies. INSURANCE REQUIREMENTS: - Your insurance requires a [id number] follow up visit within a 31-90 day period after starting CPAP. - Your insurance requires compliance with CPAP, which is at least 4 hours per night for 70% of the time. This must be done over a 30 day period and must occur within the initial 31-90 day period after starting CPAP. - Your insurance also requires at least yearly follow ups to continue to pay for CPAP supplies. Follow up in 3 month(s). Margaret Fofana APRN.ONDINA I spent a total of 45 minutes on the date of the service which included preparing to see the patient, [id number] patient care, completing clinical documentation, obtaining and/or reviewing separately obtained history, performing a medically appropriate examination, counseling and educating the patient/family/caregiver, ordering medications, tests, or procedures, and communicating results to the patient/family/caregiver. documented in this encounter [facility] 11-13-2022 History of Present illness Narrative Radiology Service Progress Note PATIENT NAME: Roe Interiano DATE OF SERVICE: November 13, 2022 TIME: 10:29 AM PATIENT IDENTITY VERIFICATION COMPLETED USING TWO (2) IDENTIFIERS: Name and Date of confirmed by patient verbally. FALL SCREENING: Has the patient had 2 falls in the last year or 1 fall with injury or currently using an Ambulatory Assistive Device (Walker, Cane, Wheelchair, Crutches, etc.)? No PATIENT GENDER DATA: Male PATIENT RELEVANT IMPLANT DATA REVIEWED: Yes RADIOLOGY DEPARTMENT: CT; Exam(s) Completed: Chest PERIPHERAL IV DATA: Not applicable SIGNED BY: RT Paulo(R) November 13, 2022 10:29 AM documented in this encounter [facility] 11-04-2022 History of Present illness Narrative November 04, 2022 Standing PSG Orders signed in the last 90 days None Future PSG Orders signed in the last 90 days Ordered Auth. provider CONSULT TO SLEEP MEDICINE - ADULT [[id number]] 10/24/22 Reba Vaughan APRN.SOLE CONFORMING MACHINE OPERATOR Assoc. diagnoses: MIKKI (obstructive sleep apnea) [G47.33] Q: Does consulting provider have [facility] access?: A: Yes All Prior Sleep Studies (past 365 days) Some values may be hidden. Unless noted otherwise, only the newest values recorded on each date are displayed. 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 Indications for study: MIKKI suspected with comorbid medical or sleep disorders: Morbid obesity (BMI>40 kg/m2) Sleep study to be performed: Home Sleep Apnea Test (HSAT) Special instructions: None-follow laboratory protocol [facility] Staff Note: I have read the above protocol, edited as needed, and agree to the plan. Lon Gentile MD 8:58 AM, 11/05/2022 Nomad# [id number] , date shipped out 11/04/22 Tracking mailout: [phone] Tracking return: [phone] 2006 November 04, 2022 An order has been received for Home Sleep Apnea Test (HSAT) from [facility] Staff. Visit prep complete. Comments :No The sleep study is scheduled for 11/05/22. Insurance: Payor: [facility] MEDICAID / Plan: [facility] MEDICAID / Product Type: Medicaid / Payer/Plan Subscr Sex Relation Sub. Ins. ID Effective Group Num 1. [facility] 1975 [facility] Self [id number] 10/29/22 [facility] [address] 2. [facility] GEN* ROE INTERIANO 1975 Male Self [id number] 05/19/18 [address], [facility] [address] Macarena Mosley documented in this encounter [facility] 11-04-2022 History and physical note BARIATRIC SURGERY NEW PATIENT EVALUATION Date: November 04, 2022 Time: 8:06 AM Name: Roe Interiano CHIEF COMPLAINT: initial evaluation for metabolic and bariatric surgery This is a virtual visit using Got[employer] video visit. It required patient-provider interaction for the medical decision making as documented below. SUBJECTIVE HPI:This is a 47 year old male with morbid obesity who presents for a virtual evaluation for surgical treatment of obesity. The patient's access body weight interferes with activities of daily living and negatively impacts body of quality of life. Weight History: He reports a family history of obesity and adult onset weight gain. He states his weight gain is related to the following factors, including reduced physical activity, consumption of unhealthy foods, and inadequate sleep duration (not due to night work). The most recent height and weight we have on file is 130.6 kg, 175.3 cm, which corresponds to a body mass index of 42.53 kg/m2. His peak adult weight was around 310lbs. The patient affirms that these are roughly accurate. He is interested in surgery to improve his weight related comorbidities as well as his overall quality of life. GERD symptoms: Famotidine appears in medication list, he only uses this intermittently. Usually this medication completely resolves symptoms. NSAID use: No regular use. Has topical diclofenac on list MIKKI -previously documented intolerance of CPAP. He is not currently using the machine. He has tried several different masks in the past. STOP-BANG score at initial evaluation on 10/24/2022 was 5. Diabetes, A1c from 09/29/2022 was 9.8, A1c from 10/27/2022 was 9.9. Currently on metformin, januvia and farxiga. Diagnosed in 2016. Never been on insulin. X-ray demonstrated multiple pulmonary nodules. He was recently evaluated by pulmonology who is impression that this likely represents granulomatous disease or histoplasmosis exposure. 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 Sebaceous cyst 01/25/2016 Sleep apnea Did not tolerate CPAP PAST SURGICAL HISTORY: PAST SURGICAL HISTORY Procedure Laterality Date APPENDECTOMY EXCISION BENIGN LESIONS,SCALP,NECK,HANDS 01/18/2016 mid chest EYE SURGERY PROCEDURE 32 yrs ago pt not sure what was done REVISE MEDIAN N/CARPAL TUNNEL SURG Bilateral 2019 VASECTOMY UNI/BI SPX W/POSTOP SEMEN EXAMS FAMILY HISTORY: FAMILY HISTORY Problem Relation Age of Onset Lipids Mother Prostate Cancer Father Diabetes Father Glaucoma Father Diabetes Maternal Grandmother Diabetes Paternal Grandmother DVT No Family History SOCIAL HISTORY: Social History Tobacco Use Smoking status: Never Smokeless tobacco: Never Vaping Use Vaping Use: Never used Substance Use Topics Alcohol use: No Drug use: No MEDICATIONS: Prior to Admission Medications: SITagliptin phosphate (JANUVIA) 100 mg tablet Take 1 tablet by mouth daily with dinner. atorvastatin (LIPITOR) 40 mg tablet Take 1 tablet by mouth once daily. dapagliflozin (FARXIGA) 10 mg tablet Take 1 tablet by mouth daily with dinner. For diabetes metFORMIN ER (GLUCOPHAGE XR) 750 mg 24 hr tablet Take 2 tablets with supper. famotidine (PEPCID) 40 mg tablet Take 1 tablet by mouth at bedtime as needed. For acid reflux vitamin b complex (B-COMPLEX) tab Take 1 tablet by mouth once daily. Cholecalciferol, Vitamin D3, 125 mcg (5,000 unit) cap Take 1 capsule by mouth once daily. tiZANidine (ZANAFLEX) 2 mg tablet Take 1-2 tablets by mouth at bedtime as needed. Muscle spasm, pain allopurinol (ZYLOPRIM) 300 mg tablet Take 1 tablet by mouth once daily. amitriptyline (ELAVIL) 25 mg tablet Take 1-2 tablets by mouth daily at bedtime. For insomnia lisinopril (ZESTRIL, PRINIVIL) 20 mg tablet Take 1 tablet by mouth once daily. mupirocin (BACTROBAN) 2 % ointment Apply to affected area twice daily as needed (skin infection). diclofenac (VOLTAREN ARTHRITIS PAIN) 1 % topical gel Apply 2 g to affected area twice daily as needed. On left shoulder or 5th finger with joint pain Tadalafil (CIALIS) 5 mg tablet Take 1 tablet by mouth as needed (sexual dysfunction). carbamide peroxide (DEBROX) 6.5 % otic solution Use 5 Drops in both ears twice daily. sodium chloride-aloe vera (AYR SALINE) topical nasal gel 1 application by INTRANASAL route at bedtime as needed (nasal dryness). Lancets (FREESTYLE LANCETS) [facility] lanc[facility] Use as instructed blood sugar diagnostic (FREESTYLE TEST) Misc test strip Use as directed. No current facility-administered medications for this visit. ALLERGIES: ALLERGIES No Known Allergies I have confirmed and edited as necessary, the PFSH and ROS obtained by others. REVIEW OF SYSTEMS: GENERAL: feeling well without fatigue, no recent change in weight HEENT: denies ANN, change in hearing or vision, no other ENT complaints NECK: denies swelling or pain in neck RESPIRATORY: no cough, no wheezing or shortness of breath CARDIOVASCULAR: no chest pain, no palpitations GI: normal appetite, tolerating PO well, BMs normal, and no abdominal pain : urination is normal MUSCULOSKELETAL: denies any painful or swollen joints, no muscle aches SKIN: no rash PSYCH: denies depressed or anxious mood, sleep is normal HEMATOLOGY/LYMPHOLOGY: negative for prolonged bleeding, no swollen lymph nodes ENDOCRINE: blood sugar checks at home, last A1c 9 NEURO: no numbness or paresthesias and no weakness of the extremities Objective PHYSICAL EXAM: VIDEO EXAM: (if completed, performed via video enabled technology) No exam performed ASSESSMENT: Roe Interiano is a 47 year old male with the following diagnosis and co-morbidities: dyslipidemia - T type II diabetes mellitus - GERD - MIKKI (previously did not use CPAP) -Hypertension -Right upper quadrant ultrasound noted fatty appearance of liver There is no height or weight on file to calculate BMI. Diagnosis noted as above, no additional diagnosis at this time. - Individualized metabolic score: 73; favors Costa en Y gastric bypass - Relapse with Costa en Y gastric bypass 35.7% - Relapse with longitudinal sleeve gastrectomy 55.0% This patient does meet the criteria for a surgical weight loss procedure according to NIH guidelines. Is this a Revisional Procedure:No Risks, benefits and alternatives discussed. PLAN: The plan of treatment for Roe Interiano is to continue with the consultations and tests ordered today in hopes of qualifying for pre-operative clearance for bariatric surgery. Patient is interested in: initially interested in sleeve gastrectomy We did discuss that gastroesophageal reflux disease can worsen after laparoscopic sleeve gastrectomy. In addition we discussed that based on the individualized metabolic risk score procedure selection, MD likelihood of relapse of diabetes after Costa-en-Y gastric bypass versus sleeve that the gastric bypass is favored - Patient has a 6-month insurance requirement for medically supervised weight loss/diet - We discussed post-operative requirements for optimal weight loss, healthy recovery, and weight loss maintenance in detail, including protein and fluid intake, vitamins, and minerals, labs, and follow-up appointments. Patient expressed understanding and agrees to comply with these requirements. - I emphasized the importance of using CPAP in immediate and early postop period and explained that MIKKI can be a life threatening condition. -Patient did mention to me that he may be losing insurance coverage in January. This unfortunately [place] deplete is required 6 months of nutrition visits. I will have navigator reach out to him about potential alternative coverage, in particular if there is a commercially available plan through his workplace. -We will schedule follow-up appointment in 2 to 3 months as a virtual visit to discuss final procedure choice. Patient was encouraged to talk to friends or family members regarding laparoscopic sleeve gastrectomy versus Costa-en-Y gastric bypass. -If elects laparoscopic sleeve gastrectomy, will need preoperative EGD to rule out esophagitis, hiatal hernia. -Unrelated to multidisciplinary metabolic work-up, patient is due for age-related colorectal cancer screening based on average risk. There are no Patient Instructions on file for this visit. I spent a total of 60 minutes on the date of the service which included preparing to see the patient, [id number] patient care, completing clinical documentation, obtaining and/or reviewing separately obtained history, counseling and educating the patient/family/caregiver, communicating with other HCPs (not separately reported), communicating results to the patient/family/caregiver, and care coordination (not separately reported) Bariatric and Advanced Laparoscopic Surgery SIGNATURE: Sathish Martínez MD PATIENT NAME: Roe Interiano DATE: November 04, 2022 TIME: 8:06 AM documented in this encounter [facility] 10-30-2022 History of Present illness Narrative VIRTUAL VISIT PROGRESS NOTE This is a virtual visit using [employer] video visit. It required patient-provider interaction for the medical decision making as documented below. Roe Interiano is a 47 year old male seen for abnormal chest x-ray. Consultation requested by surgery. HPI: 47-year-old morbidly obese non-smoker with PMH significant for diabetes, HTN, gout, HLD and obstructive sleep apnea being seen virtually for abnormal chest x-ray. No prior chronic respiratory problems such as asthma. No history of cancer. No chronic respiratory symptoms of cough, chest pain, sputum production or wheezing. LOW due to weight. In the process of being evaluated for bariatric surgery. Screening CXR showed multiple nodules thus being sent for evaluation but surgery. DATA: DATE OF EXAM: Oct 27 2022 9:16AM [id number] - XR CHEST 2V FRONTAL/LAT / PROCEDURE REASON: multiple diagnoses CLINICAL HISTORY: Class 3 severe obesity with serious comorbidity and body mass index (BMI) of 40.0 to 44.9 in adult, unspecified obesity type (HCC) Class 3 severe obesity with serious comorbidity and body mass index (BMI) of 40.0 to 44.9 in adult, unspecified obesity type (HCC) MQ: XC2_6 EXAM DATE/TIME: 10/27/2022 9:16 AM COMPARISON: No relevant prior studies available. RESULT: Lines, tubes, and devices: None. Lungs and pleura: No consolidation. Several tiny nodules bilaterally likely represent calcified granulomata. No pleural effusion. No pneumothorax. Cardiomediastinal silhouette: Normal cardiomediastinal silhouette. Bones and soft tissues: Mild wedging of several lower thoracic vertebrae. Age indeterminate somewhat exaggerated dorsal kyphosis IMPRESSION: Several tiny nodules bilaterally likely represent calcified granulomata. CT chest recommended for complete evaluation, however. Mild wedging of several thoracic vertebrae. 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 Sebaceous cyst 01/25/2016 Sleep apnea Did not tolerate CPAP PAST SURGICAL HISTORY Procedure Laterality Date APPENDECTOMY EXCISION BENIGN LESIONS,SCALP,NECK,HANDS 01/18/2016 mid chest EYE SURGERY PROCEDURE 32 yrs ago pt not sure what was done VASECTOMY UNI/BI SPX W/POSTOP SEMEN EXAMS FAMILY HISTORY Problem Relation Age of Onset Lipids Mother Prostate Cancer Father Diabetes Father Glaucoma Father Diabetes Maternal Grandmother Diabetes Paternal Grandmother Social History Tobacco Use Smoking status: Never Smokeless tobacco: Never Vaping Use Vaping Use: Never used Substance Use Topics Alcohol use: No 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 atorvastatin (LIPITOR) 40 mg tablet Take 1 tablet by mouth once daily. dapagliflozin (FARXIGA) 10 mg tablet Take 1 tablet by mouth daily with dinner. For diabetes metFORMIN ER (GLUCOPHAGE XR) 750 mg 24 hr tablet Take 2 tablets with supper. famotidine (PEPCID) 40 mg tablet Take 1 tablet by mouth at bedtime as needed. For acid reflux vitamin b complex (B-COMPLEX) tab Take 1 tablet by mouth once daily. Cholecalciferol, Vitamin D3, 125 mcg (5,000 unit) cap Take 1 capsule by mouth once daily. tiZANidine (ZANAFLEX) 2 mg tablet Take 1-2 tablets by mouth at bedtime as needed. Muscle spasm, pain allopurinol (ZYLOPRIM) 300 mg tablet Take 1 tablet by mouth once daily. Vardenafil HCl 20 mg tablet Take 0.5-1 tablets by mouth as needed (erectile dysfunction). amitriptyline (ELAVIL) 25 mg tablet Take 1-2 tablets by mouth daily at bedtime. For insomnia lisinopril (ZESTRIL, PRINIVIL) 20 mg tablet Take 1 tablet by mouth once daily. mupirocin (BACTROBAN) 2 % ointment Apply to affected area twice daily as needed (skin infection). diclofenac (VOLTAREN ARTHRITIS PAIN) 1 % topical gel Apply 2 g to affected area twice daily as needed. On left shoulder or 5th finger with joint pain Tadalafil (CIALIS) 5 mg tablet Take 1 tablet by mouth as needed (sexual dysfunction). carbamide peroxide (DEBROX) 6.5 % otic solution Use 5 Drops in both ears twice daily. sodium chloride-aloe vera (AYR SALINE) topical nasal gel 1 application by INTRANASAL route at bedtime as needed (nasal dryness). meloxicam (MOBIC) 15 mg tablet TAKE 1 TABLET BY MOUTH ONCE DAILY WITH FOOD Lancets (FREESTYLE LANCETS) Misc lancets Use as instructed blood sugar diagnostic (FREESTYLE TEST) Misc test strip Use as directed. No current facility-administered medications for this visit. ALLERGIES No Known Allergies REVIEW OF SYSTEMS: GENERAL: feeling well without fatigue, no fever HEENT: no sinus congestion or drainage CARDIAC: no chest pain, palpitations. Edema RESP: no cough, chest pain, wheezing, sputum GI: no GERD, diarrhea, nausea ENDO: diabetes not well controlled PSYCH: no anxiety or depression Rest of ROS negative PHYSICAL EXAMINATION: VIDEO EXAM: (if completed, performed via video enabled technology) GENERAL: Morbidly obese male, NAD RESPIRATORY: breathing non-labored ASSESSMENT/PLAN: Multiple pulmonary nodules -Likely represents granulomatous disease, histoplasmosis exposure. Low risk for cancer -Chest CT 2. Morbid obesity -Class 3, BMI 45 -Being evaluated for bariatric surgery Shara Upton MD documented in this encounter [facility] 10-27-2022 History of Present illness Narrative Radiology Service Progress Note PATIENT NAME: Roe Interiano DATE OF SERVICE: October 27, 2022 TIME: 9:11 AM PATIENT IDENTITY VERIFICATION COMPLETED USING TWO (2) IDENTIFIERS: Name and Date of confirmed by patient verbally. FALL SCREENING: Has the patient had 2 falls in the last year or 1 fall with injury or currently using an Ambulatory Assistive Device (Walker, Cane, Wheelchair, Crutches, etc.)? No PATIENT GENDER DATA: Male PATIENT RELEVANT IMPLANT DATA REVIEWED: Yes RADIOLOGY DEPARTMENT: General X-ray: Exam(s) Completed: Chest X-Ray PERIPHERAL IV DATA: Not applicable SIGNED BY: RT Felicitas(R) October 27, 2022 9:11 AM documented in this encounter [facility] 10-27-2022 History of Present illness Narrative Radiology Service Progress Note PATIENT NAME: Roe Interiano DATE OF SERVICE: October 27, 2022 TIME: 9:09 AM PATIENT IDENTITY VERIFICATION COMPLETED USING TWO (2) IDENTIFIERS: Name and Date of confirmed by patient verbally. FALL SCREENING: Has the patient had 2 falls in the last year or 1 fall with injury or currently using an Ambulatory Assistive Device (Walker, Cane, Wheelchair, Crutches, etc.)? No PATIENT GENDER DATA: Male PATIENT RELEVANT IMPLANT DATA REVIEWED: Not Applicable RADIOLOGY DEPARTMENT: Ultrasound PERIPHERAL IV DATA: Not applicable SIGNED BY: Mireya Candelario RDMS RVT October 27, 2022 9:09 AM documented in this encounter [facility] 10-24-2022 History of Present illness Narrative BMI Obesity Medicine Initial Bariatric Surgery Consult [facility] Visit October 24, 2022 Virtual Visit (Audio/Visual)I have discussed the nature of this visit with the patient which will occur via [facility] (Phone, Virtual Visit) and he agrees to proceed with this interaction. Patient Summary:: Roe Interiano is a 47 year old male who presents on October 24, 2022 for medical assessment of obesity. The patient is interested in laparoscopic sleeve gastrectomy and has decided to have the procedure with Dr. Sathish Martínze. Weight History: He reports a family history of obesity and adult onset weight gain. He states his weight gain is related to the following factors, including reduced physical activity, consumption of unhealthy foods, and inadequate sleep duration. Weight Graph: (please see graph scanned in chart) Obesigenic Medications: NO Diet: B: Yogurt, granola bar, apple L: Left overs from dinner D: Chicken and vegetable Snacks: Chips Beverages: Diet pepsi, coffee, water, tea Quality of diet: 24hr recall suggests unhealthy diet. Characterization of diet:Unstructured, unhealthy snacking, and increased consumption of sugar sweetened beverages. History of eating disorders: negative Previous Obesity Treatments: Self directed exercise and dieting Portion control Keto diet Exercise: Regular exercise: No Barriers to regular exercise? None Stress test: yes: when 12/2020 WNL Functional Status: Do heavy work around the house, such as scrubbing floors, lifting or moving heavy furniture (8.00 METs) Patient denies any chest pain or undue shortness of breath with the above physical activity. 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 Snoring : Do you snore loudly (louder than talking, heard through closed doors)? YES 2. Tired : Do you often feel tired, fatigued, or sleepy during daytime? YES 3. Observed : Has anyone observed you stop breathing during your sleep? NO 4. Blood Pressure: Do you have or are you being treated for high blood pressure? YES 5. BMI : BMI more than 35 kg/m2? YES 6. Age : Age over 50 yr old? NO 7. Neck circumference: Neck circumference greater than 40 cm? NO 8. Gender : Gender male? 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 atorvastatin (LIPITOR) 40 mg tablet Take 1 tablet by mouth once daily. dapagliflozin (FARXIGA) 10 mg tablet Take 1 tablet by mouth daily with dinner. For diabetes metFORMIN ER (GLUCOPHAGE XR) 750 mg 24 hr tablet Take 2 tablets with supper. famotidine (PEPCID) 40 mg tablet Take 1 tablet by mouth at bedtime as needed. For acid reflux vitamin b complex (B-COMPLEX) tab Take 1 tablet by mouth once daily. Cholecalciferol, Vitamin D3, 125 mcg (5,000 unit) cap Take 1 capsule by mouth once daily. tiZANidine (ZANAFLEX) 2 mg tablet Take 1-2 tablets by mouth at bedtime as needed. Muscle spasm, pain allopurinol (ZYLOPRIM) 300 mg tablet Take 1 tablet by mouth once daily. Vardenafil HCl 20 mg tablet Take 0.5-1 tablets by mouth as needed (erectile dysfunction). amitriptyline (ELAVIL) 25 mg tablet Take 1-2 tablets by mouth daily at bedtime. For insomnia lisinopril (ZESTRIL, PRINIVIL) 20 mg tablet Take 1 tablet by mouth once daily. mupirocin (BACTROBAN) 2 % ointment Apply to affected area twice daily as needed (skin infection). diclofenac (VOLTAREN ARTHRITIS PAIN) 1 % topical gel Apply 2 g to affected area twice daily as needed. On left shoulder or 5th finger with joint pain Tadalafil (CIALIS) 5 mg tablet Take 1 tablet by mouth as needed (sexual dysfunction). carbamide peroxide (DEBROX) 6.5 % otic solution Use 5 Drops in both ears twice daily. sodium chloride-aloe vera (AYR SALINE) topical nasal gel 1 application by INTRANASAL route at bedtime as needed (nasal dryness). meloxicam (MOBIC) 15 mg tablet TAKE 1 TABLET BY MOUTH ONCE DAILY WITH FOOD Lancets (FREESTYLE LANCETS) [facility] lancets Use as instructed blood sugar diagnostic (FREESTYLE TEST) [facility] test strip Use as directed. No current facility-administered medications on file prior to visit. ALLERGIES No Known Allergies PAST SURGICAL HISTORY Procedure Laterality Date APPENDECTOMY EXCISION BENIGN LESIONS,SCALP,NECK,HANDS 01/18/2016 mid chest EYE SURGERY PROCEDURE 32 yrs ago pt not sure what was done VASECTOMY UNI/BI SPX W/POSTOP SEMEN EXAMS Any problems with anesthesia with the above surgeries: No FAMILY HISTORY Problem Relation Age of Onset Lipids Mother Prostate Cancer Father Diabetes Father Glaucoma Father Diabetes Maternal Grandmother Diabetes Paternal Grandmother Social History Tobacco Use Smoking status: Never Smokeless tobacco: Never Vaping Use Vaping Use: Never used Substance Use Topics Alcohol use: No Drug use: No Review Of Systems Skin: negative Respiratory: +MIKKI (non compliant with BiPap) Cardiovascular: +HTN-Rx Gastrointestinal: +GERD-Rx Genitourinary: No burning with urination, blood in urine or incontinence. Hematology/Lymphology Negative for prolonged bleeding, bruising easily or swollen nodes Musculoskeletal: negative Psychiatric: negative Endocrine: +DMT2-Rx Neuro: No history of headaches, syncope, paralysis, seizures or tremors Physical Exam Virtual: NAD Impression Roe Interiano is a 47 year old male with Class III obesity He has the following metabolic complications of obesity type 2 diabetes mellitus, dyslipidemia, hypertension, and obstructive sleep apnea and other medical conditions as below. We reviewed principles of energy metabolism, caloric intake and expenditure, and rationale for treatment program. We discussed the importance of healthy lifestyle modification. He is a candidate for bariatric and metabolic surgery. he will be evaluated by our multidisciplinary team in preparation for surgery. : N/A Patient Active Problem List Diabetes mellitus type 2, controlled, without complications (HCC) Vitamin D deficiency GERD without esophagitis Actinic keratosis Carpal tunnel syndrome, bilateral Uncontrolled type 2 diabetes mellitus with hyperglycemia (HCC) Chronic insomnia Finger pain, left Chronic pain of both shoulders ED (erectile dysfunction) of organic origin Diabetes mellitus type 2 with ketoacidosis, uncontrolled (HCC) MIKKI (obstructive sleep apnea) Essential hypertension Uncontrolled type 2 diabetes mellitus without complication, without long-term current use of insulin Fatigue Obesity, Class III, BMI 40-49.9 (morbid obesity) (HCC) Acute bursitis of right shoulder Diabetes mellitus type 2, uncontrolled, without complications Hypertension Hyperlipidemia with target LDL less than 100 Anxiety Gout Morbid obesity (HCC) Resolved Hospital Problems No resolved problems to display. Plan Based on the severity and resistance of the obesity to more conservative weight loss approaches, I believe a surgical intervention is the best and most appropriate intervention. -He has a 6 month insurance requirement prior to surgery. -Reviewed BMI Nutritional Tips for Bariatric Surgery pamphlet -Encouraged the patient to improve physical activity. We discussed the benefits of both cardiovascular and strength exercises. -Discussed the importance of taking post-operative vitamins and reviewed vitamin levels ordered today. Patient understands that any variations of B vitamins or Vitamin D will be corrected pre-operatively. -Labs ordered today: See Epic -CXR, EKG, RUQ US order placed today -1/6 nutritional counseling completed today -HSAT order and consult to sleep medicine placed today I spent a total of 45 minutes on the date of the service which included preparing to see the patient, [id number] patient care, completing clinical documentation, obtaining and/or reviewing separately obtained history, performing a medically appropriate examination, counseling and educating the patient/family/caregiver, ordering medications, tests, or procedures, and independently interpreting results (not separately reported). Reba Vaughan APRN.CNP documented in this encounter [facility] 10-01-2022 History of Present illness Narrative Patient presents with: F/U 3 Month HPI: Roe Interiano is a 47 year old male who presents to the office today for review of health conditions. Concerns today: Obesity, states that he is considering interest in bariatric surgery options because he is struggling with attempts at weight loss. Knows that he needs to get weight down for better diabetes control. Is wondering if should consider bariatric procedure. Mr. Interiano has past history of diabetes. Since our last visit he denies excessive thirst or increased frequency of urination, chest pain or dyspnea , new or unusual visual symptoms, and low sugar/hypoglycemic reactions. Depression- no. Follows a diabetic diet some of the time. He is compliant with medication(s) and is tolerating med(s) without any side effects. He reports checking his glucose on a infrequent to not at all basis schedule. Patient's last HgA1C was Hemoglobin A1C (%) Date Value 12/28/2021 8.5 09/02/2021 10.3 06/21/2021 9.6 Hemoglobin A1C (POCT) (%) Date Value 10/01/2022 9.8 ) Last Ophthalmology exam was within the past 12 months Mr. Interiano reports history of hyperlipidemia. Current therapy includes atorvastatin (Lipitor) 40 mg. Denies side effects of muscle weakness or achiness. His most recent lipid panels are reviewed. Cholesterol, Total (mg/dL) Date Value 12/28/2021 137 06/21/2021 144 HDL Cholesterol (mg/dL) Date Value 12/28/2021 31 06/21/2021 30 LDL Cholesterol Date Value 12/28/2021 Comment: Unable to calculate due to increased Triglycerides. See LDL-Chol, Direct. 06/21/2021 Unable to calculate due to increased Triglycerides. See LDL-Chol, Direct. mg/dL Triglyceride (mg/dL) Date Value 12/28/2021 508 06/21/2021 539 Mr. Interiano indicates a history of hypertension and states that he is feeling well and denies any symptoms referable to elevated blood pressure. Specifically denies headache, chest pain, palpitations, dyspnea, and peripheral edema. Patient denies any side effects of his medication(s) and is compliant with their regimen. Last 3 Encounter BP Readings: Date: BP: 10/01/2022 120/80 07/09/2022 138/80 04/02/2022 120/80 He watches his diet for sodium, low fat and low cholesterol some of the time. He does not check BP's generally. Roe gets minimal exercise. 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 Sebaceous cyst 01/25/2016 Sleep apnea Did not tolerate CPAP PAST SURGICAL HISTORY Procedure Laterality Date APPENDECTOMY EXCISION BENIGN LESIONS,SCALP,NECK,HANDS 01/18/2016 mid chest EYE SURGERY PROCEDURE 32 yrs ago pt not sure what was done VASECTOMY UNI/BI SPX W/POSTOP SEMEN EXAMS Social History Tobacco Use Smoking status: Never Smokeless tobacco: Never Vaping Use Vaping Use: Never used Substance Use Topics Alcohol use: No Drug use: No FAMILY HISTORY Problem Relation Age of Onset Lipids Mother Prostate Cancer Father Diabetes Father Glaucoma Father Diabetes Maternal Grandmother Diabetes Paternal Grandmother Allergies: ALLERGIES No Known Allergies Current Meds: metFORMIN ER (GLUCOPHAGE XR) 750 mg 24 hr tablet Take 2 tablets with supper. famotidine (PEPCID) 40 mg tablet Take 1 tablet by mouth at bedtime as needed. For acid reflux vitamin b complex (B-COMPLEX) tab Take 1 tablet by mouth once daily. Cholecalciferol, Vitamin D3, 125 mcg (5,000 unit) cap Take 1 capsule by mouth once daily. tiZANidine (ZANAFLEX) 2 mg tablet Take 1-2 tablets by mouth at bedtime as needed. Muscle spasm, pain allopurinol (ZYLOPRIM) 300 mg tablet Take 1 tablet by mouth once daily. Vardenafil HCl 20 mg tablet Take 0.5-1 tablets by mouth as needed (erectile dysfunction). amitriptyline (ELAVIL) 25 mg tablet Take 1-2 tablets by mouth daily at bedtime. For insomnia lisinopril (ZESTRIL, PRINIVIL) 20 mg tablet Take 1 tablet by mouth once daily. mupirocin (BACTROBAN) 2 % ointment Apply to affected area twice daily as needed (skin infection). diclofenac (VOLTAREN ARTHRITIS PAIN) 1 % topical gel Apply 2 g to affected area twice daily as needed. On left shoulder or 5th finger with joint pain Tadalafil (CIALIS) 5 mg tablet Take 1 tablet by mouth as needed (sexual dysfunction). carbamide peroxide (DEBROX) 6.5 % otic solution Use 5 Drops in both ears twice daily. sodium chloride-aloe vera (AYR SALINE) topical nasal gel 1 application by INTRANASAL route at bedtime as needed (nasal dryness). meloxicam (MOBIC) 15 mg tablet TAKE 1 TABLET BY MOUTH ONCE DAILY WITH FOOD Lancets (FREESTYLE LANCETS) Misc lancets Use as instructed blood sugar diagnostic (FREESTYLE TEST) Misc test strip Use as directed. SITagliptin phosphate (JANUVIA) 100 mg tablet Take 1 tablet by mouth daily with dinner. atorvastatin (LIPITOR) 40 mg tablet Take 1 tablet by mouth once daily. dapagliflozin (FARXIGA) 10 mg tablet Take 1 tablet by mouth daily with dinner. For diabetes Review of Systems: The remainder of the review of systems is negative. PE: 10/01/22 1700 BP: 120/80 Pulse: 80 Resp: 16 Temp: 36.6 C (97.8 F) TempSrc: Left Tympanic Weight: 130.6 kg (288 lb) Gen: A&O, NAD, non-toxic appearing, cooperative HEENT: NT/AC, strabismus right eye, ptosis right upper eyelid, nares clear and patent b/l, pharynx without erythema, exudate or lesions. Uvula midline. EACs without erythema or debris on right, + cerumen on left Neck: supple, No cervical LAD, no thyromegaly, no carotid bruits CV: RRR, normal S1 and S2, no murmurs, no gallops, no rubs, Pulses 2+ and symmetric in UE and LE b/l Lungs: normal respiratory effort, CTA b/l, no wheezing or rhonchi or rales Abd: soft, obese, NT, ND, +BS, no hepatosplenomegaly MS: FROM all 4 extremities Neuro: CN II-XII intact b/l Skin: warm, dry, intact, No rashes or lesions on exposed skin. Foot exam: no edema, normal pulses ASSESSMENT/PLAN: 1. Uncontrolled type 2 diabetes mellitus with hyperglycemia (HCC) - ICD9: 250.02, ICD10: E11.65 (primary diagnosis) uncontrolled poorly controlled worsening control Poor adherence to plan of care. - Continue current medications - Blood glucose monitoring on a twice a day schedule - Encouraged regular aerobic exercise and weight loss - Follow up in 3 months, sooner should any other issues arise. - Discussed diabetic education issues of retirement diabetic complications, hyperglycemic symptoms, diet, medications- side effects and need for compliance, and importance of exercise with patient. - BP goal of <130/80 - LDL goal of <100 - would recommend considering adding GLP1 medication such as trulicity or victoza etc - SITAGLIPTIN PHOSPHATE 100 MG TABLET - DAPAGLIFLOZIN 10 MG TABLET - HGB A1C - COMP METABOLIC PANEL - CBC - HEMOGLOBIN A1C (POC) 2. Hyperlipidemia with target LDL less than 100 - ICD9: 272.4, ICD10: E78.5 - suboptimal control - Encouraged following a low fat, low cholesterol diet. - Discussed the benefits of regular aerobic exercise and weight loss. - ATORVASTATIN 40 MG TABLET 3. Carpal tunnel syndrome, bilateral - ICD9: 354.0, ICD10: G56.03 stable 4. Fatigue, unspecified type - ICD9: 780.79, ICD10: R53.83 chronic 5. Essential hypertension - ICD9: 401.9, ICD10: I10 - good control - Continue current medication(s) - Encouraged dietary sodium restriction/DASH diet - Recommended regular aerobic exercise. - Recommend home blood pressure monitoring, to bring results in on next visit - Goal of BP <130/80 6. Obesity, Class III, BMI 40-49.9 (morbid obesity) (HCC) - ICD9: 278.01, ICD10: E66.01 Weight increasing - Behavioral intervention and - Pharmacological intervention Ean Luu DO To ER if develops chest pain, shortness of breath, or severe worsening of symptoms. Discussed risks, benefits, alternatives, and potential side effects of medications. Patient expressed understanding and agreed with the plan. Ean Luu DO [address] [place] [address] documented in this encounter [facility] 07-14-2022 Miscellaneous Notes Have head no response from insurance. Called the pharmacy and rx was ran through [employer] insurance with no copay and no issues. It appears PA was able to be completed via covermymeds. LUISA INTERIANO ([place]: [id number]) - [id number] metFORMIN HCl ER 750MG er tablets Status: Sent to Plan Created: July 07, 2022 Sent: July 10, 2022 Open An[employer] as not sent Archive [facility] has changed their PA process. This new process isn't going well. Unable to complete PA electronically. Please call insurance company for a PA for his glucophage XR medication. States this is needed due to insurance changes. Ean Luu DO documented in this encounter [facility] 07-09-2022 History of Present illness Narrative Patient presents with: F/U 3 Month HPI: Roe Interiano is a 47 year old male who presents to the office today for review of health conditions. Concerns today: Admits that he hasn't been consistent with taking his Farxiga medication. He hasn't had his labs obtained as ordered at last office visit. Admits doesn't always follow a low carbohydrate diabetic diet as he shoulder. Mr. Interiano has past history of diabetes. Since our last visit he denies excessive thirst or increased frequency of urination, chest pain or dyspnea , new or unusual visual symptoms, and low sugar/hypoglycemic reactions. Follows a diabetic diet generally not very much. He is not compliant with medication(s) and is tolerating med(s) without any side effects. He reports checking his glucose on a infrequent to not at all basis schedule - he refuses to regularly check his blood glucose. Patient's last HgA1C was Hemoglobin A1C (%) Date Value 12/28/2021 8.5 09/02/2021 10.3 06/21/2021 9.6 ) Last Ophthalmology exam was within the past 12 months Mr. Interiano reports history of hyperlipidemia. Current therapy includes atorvastatin (Lipitor) 40 mg. Denies side effects of muscle weakness or achiness. His most recent lipid panels are reviewed. Cholesterol, Total (mg/dL) Date Value 12/28/2021 137 06/21/2021 144 HDL Cholesterol (mg/dL) Date Value 12/28/2021 31 06/21/2021 30 LDL Cholesterol Date Value 12/28/2021 Comment: Unable to calculate due to increased Triglycerides. See LDL-Chol, Direct. 06/21/2021 Unable to calculate due to increased Triglycerides. See LDL-Chol, Direct. mg/dL Triglyceride (mg/dL) Date Value 12/28/2021 508 06/21/2021 539 Mr. Interiano indicates a history of hypertension and states that he is feeling well and denies any symptoms referable to elevated blood pressure. Specifically denies headache, chest pain, palpitations, dyspnea, and peripheral edema. Patient denies any side effects of his medication(s) and is compliant with their regimen. Last 3 Encounter BP Readings: Date: BP: 07/09/2022 138/80 04/02/2022 120/80 12/25/2021 124/70 He watches his diet for sodium, low fat and low cholesterol some of the time. He does not check BP's generally. Roe gets minimal exercise. 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 Sebaceous cyst 01/25/2016 Sleep apnea Did not tolerate CPAP PAST SURGICAL HISTORY Procedure Laterality Date APPENDECTOMY EXCISION BENIGN LESIONS,SCALP,NECK,HANDS 01/18/2016 mid chest EYE SURGERY PROCEDURE 32 yrs ago pt not sure what was done VASECTOMY UNI/BI SPX W/POSTOP SEMEN EXAMS Social History Tobacco Use Smoking status: Never Smokeless tobacco: Never Vaping Use Vaping Use: Never used Substance Use Topics Alcohol use: No Drug use: No FAMILY HISTORY Problem Relation Age of Onset Lipids Mother Prostate Cancer Father Diabetes Father Glaucoma Father Diabetes Maternal Grandmother Diabetes Paternal Grandmother Allergies: ALLERGIES No Known Allergies Current Meds: vitamin b complex (B-COMPLEX) tab Take 1 tablet by mouth once daily. SITagliptin (JANUVIA) 100 mg tablet Take 1 tablet by mouth daily with dinner. atorvastatin (LIPITOR) 40 mg tablet Take 1 tablet by mouth once daily. dapagliflozin (FARXIGA) 10 mg tablet Take 1 tablet by mouth daily with dinner. For diabetes Cholecalciferol, Vitamin D3, 125 mcg (5,000 unit) cap Take 1 capsule by mouth once daily. tiZANidine (ZANAFLEX) 2 mg tablet Take 1-2 tablets by mouth at bedtime as needed. Muscle spasm, pain allopurinol (ZYLOPRIM) 300 mg tablet Take 1 tablet by mouth once daily. amitriptyline (ELAVIL) 25 mg tablet Take 1-2 tablets by mouth daily at bedtime. For insomnia lisinopril (ZESTRIL, PRINIVIL) 20 mg tablet Take 1 tablet by mouth once daily. mupirocin (BACTROBAN) 2 % ointment Apply to affected area twice daily as needed (skin infection). diclofenac (VOLTAREN ARTHRITIS PAIN) 1 % topical gel Apply 2 g to affected area twice daily as needed. On left shoulder or 5th finger with joint pain carbamide peroxide (DEBROX) 6.5 % otic solution Use 5 Drops in both ears twice daily. sodium chloride-aloe vera (AYR SALINE) topical nasal gel 1 application by INTRANASAL route at bedtime as needed (nasal dryness). Lancets (FREESTYLE LANCETS) [facility] lancets Use as instructed blood sugar diagnostic (FREESTYLE TEST) Misc test strip Use as directed. metFORMIN ER (GLUCOPHAGE XR) 750 mg 24 hr tablet Take 2 tablets with supper. famotidine (PEPCID) 40 mg tablet Take 1 tablet by mouth at bedtime as needed. For acid reflux Vardenafil HCl 20 mg tablet Take 0.5-1 tablets by mouth as needed (erectile dysfunction). Tadalafil (CIALIS) 5 mg tablet Take 1 tablet by mouth as needed (sexual dysfunction). (Patient not taking: Reported on 07/09/2022) meloxicam (MOBIC) 15 mg tablet TAKE 1 TABLET BY MOUTH ONCE DAILY WITH FOOD (Patient not taking: Reported on 07/09/2022) Review of Systems: The remainder of the review of systems is negative. PE: 07/09/22 1732 BP: 138/80 Pulse: 88 Resp: 16 Temp: 36.7 C (98 F) TempSrc: Left Tympanic SpO2: 99% Weight: 132 kg (291 lb) Gen: A&O, NAD, non-toxic appearing, cooperative HEENT: NT/AC, upper eyelid lag on left, nares clear and patent b/l, pharynx without erythema, exudate or lesions. Uvula midline.MMM Neck: supple, No cervical LAD, no thyromegaly, no carotid bruits CV: RRR, normal S1 and S2, no murmurs, no gallops, no rubs, Pulses 2+ and symmetric in UE and LE b/l Lungs: normal respiratory effort, CTA b/l, no wheezing or rhonchi or rales Abd: soft,obese, NT, ND, +BS, no hepatosplenomegaly MS: FROM all 4 extremities Neuro: CN II-XII intact b/l, strength 5/5 b/l UE and LE, DTRs 2/4 UE and LE, sensation intact. Skin: warm, dry, intact, No rashes or lesions on exposed skin. Foot exam: no edema, normal pulses ASSESSMENT/PLAN: 1. Uncontrolled type 2 diabetes mellitus with hyperglycemia (HCC) - ICD9: 250.02, ICD10: E11.65 (primary diagnosis) uncontrolled poorly controlled - Continue current medications - Check HgA1C and fasting lipid panel - Blood glucose monitoring on a once a day schedule - METFORMIN ER 750 MG TABLET,EXTENDED RELEASE 24 HR 2. GERD without esophagitis - ICD9: 530.81, ICD10: K21.9 - Discussed lifestyle modifications including losing weight, limiting caffeine, no meals three hours before sleep, and head of bed elevation - FAMOTIDINE 40 MG TABLET 3. Fatigue, unspecified type - ICD9: 780.79, ICD10: R53.83 - multifactorial, doesn't eat and follow a diabetic diet and often not taking his medications appropriately 4. Essential hypertension - ICD9: 401.9, ICD10: I10 - good control - Continue current medication(s) - Encouraged dietary sodium restriction/DASH diet - Recommended regular aerobic exercise. - Recommend home blood pressure monitoring, to bring results in on next visit - Discussed need and benefit for weight loss. - Goal of BP <130/80 5. Hyperlipidemia with target LDL less than 100 - ICD9: 272.4, ICD10: E78.5 - to be determined upon return of lab results - Encouraged following a low fat, low cholesterol diet. - Discussed the benefits of regular aerobic exercise and weight loss. 6. Vitamin D deficiency - ICD9: 268.9, ICD10: E55.9 - continue supplement 7. Obesity, Class III, BMI 40-49.9 (morbid obesity) (HCC) - ICD9: 278.01, ICD10: E66.01 Stable - Behavioral intervention and - Pharmacological intervention Ean Luu DO He refuses colonoscopy or IFOBT or cologuard stool testing at this time. To ER if develops chest pain, shortness of breath, or severe worsening of symptoms. Discussed risks, benefits, alternatives, and potential side effects of medications. Patient expressed understanding and agreed with the plan. Ean Luu DO [address] [place] [address] documented in this encounter [facility] 05-05-2022 Miscellaneous Notes Patient has been identified by name and date of : Yes Pending Prescriptions Disp Refills VITAMIN B COMPLEX TABLET 30 tablet 11 Sig: Take 1 tablet by mouth once daily. TAVIA: No RX INSTRUCTIONS: Patient aware RX will be sent to pharmacy. No need to notify patient. Breann Mora documented in this encounter [facility] 01-29-2022 Miscellaneous Notes Patient has been identified by name and date of : Yes Spouse phones for refill(s): Pending Prescriptions Disp Refills LISINOPRIL 20 MG TABLET 90 tablet 3 Sig: Take 1 tablet by mouth once daily. TAVIA: No Date of last office visit in primary care: 12/25/2021 states that pharmacy told her that patient needs refills. Pharmacy gave them a couple pills to hold him over. Last 2 Encounter Wt Readings: Date: Wt: 12/25/2021 130.6 kg (288 lb) 09/25/2021 132.5 kg (292 lb) Previous labs/tests for medication: Blood Pressure: BUN (mg/dL) Date Value 12/28/2021 16 09/02/2021 10 Sodium (mmol/L) Date Value 12/28/2021 139 09/02/2021 136 Last 1 Encounter BP Readings: Date: BP: 12/25/2021 124/70 Liver Function: ALT (U/L) Date Value 12/28/2021 21 09/02/2021 30 AST (U/L) Date Value 12/28/2021 18 09/02/2021 20 Please advise. Thank you. Barb Duarte RN documented in this encounter [facility] 12-30-2021 Miscellaneous Notes Spoke with patient. Given message from provider's office. Patient verbalizes understanding. [place] RN Message left to return call. Patrick Leroy LPN He is already at the highest dose of Farixiga Can check to see if his insurance will cover Rybelsus oral GLP1 agonist Ean Luu DO Pt. will not do any injections. He will increase his Farxiga if needed.Patrick Leroy LPN Please inform patient that his a1c is improved but still high at 8.5%. We need to consider adding on once a day Lantus 10 units of insulin at bedtime or changing the Januvia to trulicity 0.75 mg once a week SQ injection or Ozempic once a week injection (GLP 1 agonist) for improved control. Ean Luu DO documented in this encounter [facility] 12-25-2021 History of Present illness Narrative Patient presents with: Follow Up: 3 months HPI: Roe Interiano is a 46 year old male who presents to the office today for review of health conditions. Concerns today: Skin lesion on scalp, not resolved, hx of sun exposure in the past. Mr. Interiano has past history of diabetes. Since our last visit he denies excessive thirst or increased frequency of urination, chest pain or dyspnea , new or unusual visual symptoms and low sugar/hypoglycemic reactions. Follows a diabetic diet some of the time. He is compliant with medication(s) and is tolerating med(s) without any side effects. He reports checking his glucose on a infrequent to not at all basis schedule. Patient's last HgA1C was Hemoglobin A1C (%) Date Value 09/02/2021 10.3 06/21/2021 9.6 ) Last Ophthalmology exam was within the past 12 months Mr. Interiano reports history of hyperlipidemia. Current therapy includes atorvastatin (Lipitor) 40 mg. Denies side effects of muscle weakness or achiness. His most recent lipid panels are reviewed. Cholesterol, Total (mg/dL) Date Value 06/21/2021 144 HDL Cholesterol (mg/dL) Date Value 06/21/2021 30 LDL Cholesterol (mg/dL) Date Value 06/21/2021 Unable to calculate due to increased Triglycerides. See LDL-Chol, Direct. Triglyceride (mg/dL) Date Value 06/21/2021 539 Mr. Interiano indicates a history of hypertension and states that he is feeling well and denies any symptoms referable to elevated blood pressure. Specifically denies headache, chest pain, palpitations, dyspnea and peripheral edema. Patient denies any side effects of his medication(s) and is compliant with their regimen. Last 3 Encounter BP Readings: Date: BP: 12/25/2021 124/70 09/25/2021 136/80 09/02/2021 136/80 He watches his diet for sodium, low fat and low cholesterol some of the time. He does not check BP's generally. Roe gets minimal exercise. 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 Sebaceous cyst 01/25/2016 Sleep apnea Did not tolerate CPAP PAST SURGICAL HISTORY Procedure Laterality Date APPENDECTOMY EXCISION BENIGN LESIONS,SCALP,NECK,HANDS 01/18/2016 mid chest EYE SURGERY PROCEDURE 32 yrs ago pt not sure what was done VASECTOMY UNI/BI SPX W/POSTOP SEMEN EXAMS Social History Tobacco Use Smoking status: Never Smoker Smokeless tobacco: Never Used Vaping Use Vaping Use: Never used Substance Use Topics Alcohol use: No Drug use: No FAMILY HISTORY Problem Relation Age of Onset Lipids Mother Prostate Cancer Father Diabetes Father Glaucoma Father Diabetes Maternal Grandmother Diabetes Paternal Grandmother Allergies: ALLERGIES No Known Allergies Current Meds: SITagliptin (JANUVIA) 100 mg tablet Take 1 tablet by mouth daily with dinner. metFORMIN ER (GLUCOPHAGE XR) 750 mg 24 hr tablet Take 2 tablets with supper. atorvastatin (LIPITOR) 40 mg tablet Take 1 tablet by mouth once daily. dapagliflozin (FARXIGA) 10 mg tablet Take 1 tablet by mouth daily with dinner. For diabetes lisinopril (ZESTRIL, PRINIVIL) 20 mg tablet Take 1 tablet by mouth once daily. Cholecalciferol, Vitamin D3, 125 mcg (5,000 unit) cap Take 1 capsule by mouth once daily. tiZANidine (ZANAFLEX) 2 mg tablet Take 1-2 tablets by mouth at bedtime as needed. Muscle spasm, pain allopurinol (ZYLOPRIM) 300 mg tablet Take 1 tablet by mouth once daily. mupirocin (BACTROBAN) 2 % ointment Apply to affected area twice daily as needed (skin infection). diclofenac (VOLTAREN ARTHRITIS PAIN) 1 % topical gel Apply 2 g to affected area twice daily as needed. On left shoulder or 5th finger with joint pain vitamin b complex (B-COMPLEX) tab Take 1 tablet by mouth once daily. Tadalafil (CIALIS) 5 mg tablet Take 1 tablet by mouth as needed (sexual dysfunction). carbamide peroxide (DEBROX) 6.5 % otic solution Use 5 Drops in both ears twice daily. sodium chloride-aloe vera (AYR SALINE) topical nasal gel 1 application by INTRANASAL route at bedtime as needed (nasal dryness). Lancets (FREESTYLE LANCETS) [facility] lancets Use as instructed blood sugar diagnostic (FREESTYLE TEST) [facility] test strip Use as directed. Tadalafil (CIALIS) 10 mg tablet Take 1 tablet by mouth as needed (erectile dysfunction). traZODone (DESYREL) 50 mg tablet Take 1 tablet by mouth daily at bedtime. For insomnia meloxicam (MOBIC) 15 mg tablet TAKE 1 TABLET BY MOUTH ONCE DAILY WITH FOOD Review of Systems: The remainder of the review of systems is negative. PE: 12/25/21 1730 BP: 124/70 Pulse: 88 Resp: 20 Temp: (!) 35.9 C (96.7 F) TempSrc: Left Tympanic Weight: 130.6 kg (288 lb) Gen: A&O, NAD, non-toxic appearing, Pleasant, cooperative HEENT: NT/AC, upper eyelid lag left >right, EOMI intact on left, nares clear and patent b/l, pharynx without erythema, exudate or lesions. Uvula midline. Neck: supple, No cervical LAD, no thyromegaly, no carotid bruits CV: RRR, normal S1 and S2, no murmurs, no gallops, no rubs, Pulses 2+ and symmetric in UE and LE b/l Lungs: normal respiratory effort, CTA b/l, no wheezing or rhonchi or rales Abd: soft, obese, NT, ND, +BS, no hepatosplenomegaly MS: FROM all 4 extremities Neuro: CN II-XII intact b/l, strength 5/5 b/l UE and LE, DTRs 2/4 UE and LE, sensation intact. Skin: warm, dry, intact, actinic keratosis scalp Foot exam: no edema, normal pulses ASSESSMENT/PLAN: 1. Uncontrolled type 2 diabetes mellitus with hyperglycemia (HCC) - ICD9: 250.02, ICD10: E11.65 (primary diagnosis) uncontrolled Poor adherence to plan of care. - Continue current medications - Check HgA1C, fasting glucose, fasting lipid panel and CMP - Blood glucose monitoring on a twice a day schedule - Encouraged regular aerobic exercise and weight loss - Follow up in 3 months, sooner should any other issues arise. - Discussed diabetic education issues of retirement diabetic complications, hyperglycemic symptoms, diet, medications- side effects and need for compliance and importance of exercise with patient. - BP goal of <130/80 - LDL goal of <100 2. Hyperlipidemia with target LDL less than 100 - ICD9: 272.4, ICD10: E78.5 - to be determined upon return of lab results - Encouraged following a low fat, low cholesterol diet. - Discussed the benefits of regular aerobic exercise and weight loss. - Check fasting lipid panel - LIPID PANEL BASIC 3. Essential hypertension - ICD9: 401.9, ICD10: I10 - good control - Continue current medication(s) - Encouraged dietary sodium restriction/DASH diet - Recommended regular aerobic exercise. - Recommend home blood pressure monitoring, to bring results in on next visit - Discussed need and benefit for weight loss. - Goal of BP <130/80 4. Obesity, Class III, BMI 40-49.9 (morbid obesity) (HCC) - ICD9: 278.01, ICD10: E66.01 Stable - Behavioral intervention, - Eat well program and - Continue current medications 5. Actinic keratosis - ICD9: 702.0, ICD10: L57.0 - treated x 1 lesion on scalp with cryotherapy, tolerated well, no complication. Ean Luu DO To ER if develops chest pain, shortness of breath, or severe worsening of symptoms. Discussed risks, benefits, alternatives, and potential side effects of medications. Patient expressed understanding and agreed with the plan. Ean Luu DO [address] [place] [id number] documented in this encounter [facility] 01-25-2016 History of Past i llness Narrative Problem Noted Date Resolved Date Sebaceous cyst 01/25/2016 11/27/2016 Skin tag 01/25/2016 11/27/2016 Cutaneous abscess of chest wall 09/17/2015 11/27/2016 Gout 12/19/2009 11/27/2016 Dysmetabolic syndrome X 10/10/2008 11/28/19 17 documented as of this encounter (statuses as of 12/25/2021) [facility]04-29-2016 History of Past illness Narrative* Problem Noted Date Resolved Date Sebaceous cyst 01/25/2016 11/27/2016 Skin tag 01/25/2016 11/27/2016 Cutaneous abscess of chest wall 09/17/2015 11/27/2016 Gout 12/19/2009 11/27/2016 Dysmetabolic syndrome X 10/10/2008 11/28/19 17 documented as of this encounter (statuses as of 12/30/2021) [facility]2016 History of Past illness Narrative* Problem Noted Date Resolved Date Sebaceous cyst 01/25/2016 11/27/2016 Skin tag 01/25/2016 11/27/2016 Cutaneous abscess of chest wall 09/17/2015 11/27/2016 Gout 12/19/2009 11/27/2016 Dysmetabolic syndrome X 10/10/2008 11/28/19 17 documented as of this encounter (statuses as of 01/29/2022) [facility] History of Past illness Narrative* Problem Noted Date Resolved Date Sebaceous cyst 01/25/2016 11/27/2016 Skin tag 01/25/2016 11/27/2016 Cutaneous abscess of chest wall 09/17/2015 11/27/2016 Gout 12/19/2009 11/27/2016 Dysmetabolic syndrome X 10/10/2008 11/28/19 17 documented as of this encounter (statuses as of 05/07/2022) [facility] History of Past illness Narrative* Problem Noted Date Resolved Date Sebaceous cyst 01/25/2016 11/27/2016 Skin tag 01/25/2016 11/27/2016 Cutaneous abscess of chest wall 09/17/2015 11/27/2016 Gout 12/19/2009 11/27/2016 Dysmetabolic syndrome X 10/10/2008 11/28/19 17 documented as of this encounter (statuses as of 07/10/2022) [facility] History of Past illness Narrative* Problem Noted Date Resolved Date Sebaceous cyst 01/25/2016 11/27/2016 Skin tag 01/25/2016 11/27/2016 Cutaneous abscess of chest wall 09/17/2015 11/27/2016 Gout 12/19/2009 11/27/2016 Dysmetabolic syndrome X 10/10/2008 11/28/19 17 documented as of this encounter (statuses as of 07/14/2022) [facility] History of Past illness Narrative* Problem Noted Date Resolved Date Sebaceous cyst 01/25/2016 11/27/2016 Skin tag 01/25/2016 11/27/2016 Cutaneous abscess of chest wall 09/17/2015 11/27/2016 Gout 12/19/2009 11/27/2016 Dysmetabolic syndrome X 10/10/2008 11/28/19 17 documented as of this encounter (statuses as of 10/03/2022) [facility] History of Past illness Narrative* Problem Noted Date Resolved Date Sebaceous cyst 01/25/2016 11/27/2016 Skin tag 01/25/2016 11/27/2016 Cutaneous abscess of chest wall 09/17/2015 11/27/2016 Gout 12/19/2009 11/27/2016 Dysmetabolic syndrome X 10/10/2008 11/28/19 17 documented as of this encounter (statuses as of 10/24/2022) [facility] History of Past illness Narrative* Problem Noted Date Resolved Date Sebaceous cyst 01/25/2016 11/27/2016 Skin tag 01/25/2016 11/27/2016 Cutaneous abscess of chest wall 09/17/2015 11/27/2016 Gout 12/19/2009 11/27/2016 Dysmetabolic syndrome X 10/10/2008 11/28/19 17 documented as of this encounter (statuses as of 10/28/2022) [facility] History of Past illness Narrative* Problem Noted Date Resolved Date Sebaceous cyst 01/25/2016 11/27/2016 Skin tag 01/25/2016 11/27/2016 Cutaneous abscess of chest wall 09/17/2015 11/27/2016 Gout 12/19/2009 11/27/2016 Dysmetabolic syndrome X 10/10/2008 11/28/19 17 documented as of this encounter (statuses as of 10/29/2022) [address]29-2016 History of Past illness Narrative* Problem Noted Date Resolved Date Sebaceous cyst 01/25/2016 11/27/2016 Skin tag 01/25/2016 11/27/2016 Cutaneous abscess of chest wall 09/17/2015 11/27/2016 Gout 12/19/2009 11/27/2016 Dysmetabolic syndrome X 10/10/2008 11/28/19 17 documented as of this encounter (statuses as of 10/30/2022) [facility] History of Past illness Narrative* Problem Noted Date Resolved Date Sebaceous cyst 01/25/2016 11/27/2016 Skin tag 01/25/2016 11/27/2016 Cutaneous abscess of chest wall 09/17/2015 11/27/2016 Gout 12/19/2009 11/27/2016 Dysmetabolic syndrome X 10/10/2008 11/28/19 17 documented as of this encounter (statuses as of 11/04/2022) [facility] History of Past illness Narrative* Problem Noted Date Resolved Date Sebaceous cyst 01/25/2016 11/27/2016 Skin tag 01/25/2016 11/27/2016 Cutaneous abscess of chest wall 09/17/2015 11/27/2016 Gout 12/19/2009 11/27/2016 Dysmetabolic syndrome X 10/10/2008 11/28/19 17 documented as of this encounter (statuses as of 11/05/2022) [facility] History of Past illness Narrative* Problem Noted Date Resolved Date Sebaceous cyst 01/25/2016 11/27/2016 Skin tag 01/25/2016 11/27/2016 Cutaneous abscess of chest wall 09/17/2015 11/27/2016 Gout 12/19/2009 11/27/2016 Dysmetabolic syndrome X 10/10/2008 11/28/19 17 documented as of this encounter (statuses as of 11/19/2022) [facility] History of Past illness Narrative* Problem Noted Date Resolved Date Sebaceous cyst 01/25/2016 11/27/2016 Skin tag 01/25/2016 11/27/2016 Cutaneous abscess of chest wall 09/17/2015 11/27/2016 Gout 12/19/2009 11/27/2016 Dysmetabolic syndrome X 10/10/2008 11/28/19 17 documented as of this encounter (statuses as of 11/22/2022) [address]-2016 History of Past illness Narrative* Problem Noted Date Resolved Date Sebaceous cyst 01/25/2016 11/27/2016 Skin tag 01/25/2016 11/27/2016 Cutaneous abscess of chest wall 09/17/2015 11/27/2016 Gout 12/19/2009 11/27/2016 Dysmetabolic syndrome X 10/10/2008 11/28/19 17 documented as of this encounter (statuses as of 11/24/2022) [facility] History of Past illness Narrative* Problem Noted Date Resolved Date Sebaceous cyst 01/25/2016 11/27/2016 Skin tag 01/25/2016 11/27/2016 Cutaneous abscess of chest wall 09/17/2015 11/27/2016 Gout 12/19/2009 11/27/2016 Dysmetabolic syndrome X 10/10/2008 11/28/19 17 documented as of this encounter (statuses as of 11/24/2022) [address]29-2016 History of Past illness Narrative* Problem Noted Date Resolved Date Sebaceous cyst 01/25/2016 11/27/2016 Skin tag 01/25/2016 11/27/2016 Cutaneous abscess of chest wall 09/17/2015 11/27/2016 Gout 12/19/2009 11/27/2016 Dysmetabolic syndrome X 10/10/2008 11/28/19 17 documented as of this encounter (statuses as of 12/01/2022) [address]-2016 History of Past illness Narrative* Problem Noted Date Resolved Date Sebaceous cyst 01/25/2016 11/27/2016 Skin tag 01/25/2016 11/27/2016 Cutaneous abscess of chest wall 09/17/2015 11/27/2016 Gout 12/19/2009 11/27/2016 Dysmetabolic syndrome X 10/10/2008 11/28/19 17 documented as of this encounter (statuses as of 12/10/2022) [address]29-2016 History of Past illness Narrative* Problem Noted Date Resolved Date Sebaceous cyst 01/25/2016 11/27/2016 Skin tag 01/25/2016 11/27/2016 Cutaneous abscess of chest wall 09/17/2015 11/27/2016 Gout 12/19/2009 11/27/2016 Dysmetabolic syndrome X 10/10/2008 11/28/19 17 documented as of this encounter (statuses as of 12/29/2022) [facility] History of Past illness Narrative* Problem Noted Date Resolved Date Sebaceous cyst 01/25/2016 11/27/2016 Skin tag 01/25/2016 11/27/2016 Cutaneous abscess of chest wall 09/17/2015 11/27/2016 Gout 12/19/2009 11/27/2016 Dysmetabolic syndrome X 10/10/2008 11/28/19 17 documented as of this encounter (statuses as of 01/07/2023) [address]-2016 History of Past illness Narrative* Problem Noted Date Resolved Date Sebaceous cyst 01/25/2016 11/27/2016 Skin tag 01/25/2016 11/27/2016 Cutaneous abscess of chest wall 09/17/2015 11/27/2016 Gout 12/19/2009 11/27/2016 Dysmetabolic syndrome X 10/10/2008 11/28/19 17 documented as of this encounter (statuses as of 01/08/2023) [address]-2016 History of Past illness Narrative* Problem Noted Date Resolved Date Sebaceous cyst 01/25/2016 11/27/2016 Skin tag 01/25/2016 11/27/2016 Cutaneous abscess of chest wall 09/17/2015 11/27/2016 Gout 12/19/2009 11/27/2016 Dysmetabolic syndrome X 10/10/2008 11/28/19 17 documented as of this encounter (statuses as of 01/08/2023) [facility] History of Past illness Narrative* Problem Noted Date Resolved Date Sebaceous cyst 01/25/2016 11/27/2016 Skin tag 01/25/2016 11/27/2016 Cutaneous abscess of chest wall 09/17/2015 11/27/2016 Gout 12/19/2009 11/27/2016 Dysmetabolic syndrome X 10/10/2008 11/28/19 17 documented as of this encounter (statuses as of 02/10/2023) [facility] History of Past illness Narrative* Problem Noted Date Resolved Date Sebaceous cyst 01/25/2016 11/27/2016 Skin tag 01/25/2016 11/27/2016 Cutaneous abscess of chest wall 09/17/2015 11/27/2016 Gout 12/19/2009 11/27/2016 Dysmetabolic syndrome X 10/10/2008 11/28/19 17 documented as of this encounter (statuses as of 02/24/2023) [facility]04[facility] History of Past illness Narrative* Problem Noted Date Resolved Date Sebaceous cyst 01/25/2016 11/27/2016 Skin tag 01/25/2016 11/27/2016 Cutaneous abscess of chest wall 09/17/2015 11/27/2016 Gout 12/19/2009 11/27/2016 Dysmetabolic syndrome X 10/10/2008 11/28/19 17 documented as of this encounter (statuses as of 02/25/2023) [facility] History of Past illness Narrative* Problem Noted Date Resolved Date Sebaceous cyst 01/25/2016 11/27/2016 Skin tag 01/25/2016 11/27/2016 Cutaneous abscess of chest wall 09/17/2015 11/27/2016 Gout 12/19/2009 11/27/2016 Dysmetabolic syndrome X 10/10/2008 11/28/19 17 documented as of this encounter (statuses as of 04/02/2023) [address]29-2016 History of Past illness Narrative* Problem Noted Date Diagnosed Date Resolved Date Sebaceous cyst 01/25/2016 11/27/2016 Skin tag 01/25/2016 11/27/2016 Cutaneous abscess of chest wall 09/17/2015 11/27/2016 Gout 12/19/2009 11/27/2016 Dysmetabolic syndrome X 10/10/200810/2016 documented as of this encounter (statuses as of 04/24/2023) [facility]04[facility] History of Past illness Narrative* Problem Noted Date Diagnosed Date Resolved Date Sebaceous cyst 01/25/2016 11/27/2016 Skin tag 01/25/2016 11/27/2016 Cutaneous abscess of chest wall 09/17/2015 11/27/2016 Gout 12/19/2009 11/27/2016 Dysmetabolic syndrome X 10/10/200810/2016 documented as of this encounter (statuses as of 05/19/2023) [facility] History of Past illness Narrative* Problem Noted Date Diagnosed Date Resolved Date Sebaceous cyst 01/25/2016 11/27/2016 Skin tag 01/25/2016 11/27/2016 Cutaneous abscess of chest wall 09/17/2015 11/27/2016 Gout 12/19/2009 11/27/2016 Dysmetabolic syndrome X 10/10/200810/2016 documented as of this encounter (statuses as of 06/10/2023) [facility] History of Past illness Narrative* Problem Noted Date Diagnosed Date Resolved Date Sebaceous cyst 01/25/2016 11/27/2016 Skin tag 01/25/2016 11/27/2016 Cutaneous abscess of chest wall 09/17/2015 11/27/2016 Gout 12/19/2009 11/27/2016 Dysmetabolic syndrome X 10/10/200810/2016 documented as of this encounter (statuses as of 07/04/2023) [facility] History of Past illness Narrative* Problem Noted Date Diagnosed Date Resolved Date Sebaceous cyst 01/25/2016 11/27/2016 Skin tag 01/25/2016 11/27/2016 Cutaneous abscess of chest wall 09/17/2015 11/27/2016 Gout 12/19/2009 11/27/2016 Dysmetabolic syndrome X 10/10/200810/2016 documented as of this encounter (statuses as of 07/16/2023) [address]29-2016 History of Past illness Narrative* Problem Noted Date Diagnosed Date Resolved Date Sebaceous cyst 01/25/2016 11/27/2016 Skin tag 01/25/2016 11/27/2016 Cutaneous abscess of chest wall 09/17/2015 11/27/2016 Gout 12/19/2009 11/27/2016 Dysmetabolic syndrome X 10/10/200810/2016 documented as of this encounter (statuses as of 08/02/2023) [address]29-2016 History of Past illness Narrative* Problem Noted Date Diagnosed Date Resolved Date Sebaceous cyst 01/25/2016 11/27/2016 Skin tag 01/25/2016 11/27/2016 Cutaneous abscess of chest wall 09/17/2015 11/27/2016 Gout 12/19/2009 11/27/2016 Dysmetabolic syndrome X 10/10/200810/2016 documented as of this encounter (statuses as of 08/02/2023) [address]29-2016 History of Past illness Narrative* Problem Noted Date Diagnosed Date Resolved Date Sebaceous cyst 01/25/2016 11/27/2016 Skin tag 01/25/2016 11/27/2016 Cutaneous abscess of chest wall 09/17/2015 11/27/2016 Gout 12/19/2009 11/27/2016 Dysmetabolic syndrome X 10/10/200810/2016 documented as of this encounter (statuses as of 08/02/2023) [address]29-2016 History of Past illness Narrative* Problem Noted Date Diagnosed Date Resolved Date Sebaceous cyst 01/25/2016 11/27/2016 Skin tag 01/25/2016 11/27/2016 Cutaneous abscess of chest wall 09/17/2015 11/27/2016 Gout 12/19/2009 11/27/2016 Dysmetabolic syndrome X 10/10/200810/2016 documented as of this encounter (statuses as of 08/04/2023) [address]29-2016 History of Past illness Narrative* Problem Noted Date Diagnosed Date Resolved Date Sebaceous cyst 01/25/2016 11/27/2016 Skin tag 01/25/2016 11/27/2016 Cutaneous abscess of chest wall 09/17/2015 11/27/2016 Gout 12/19/2009 11/27/2016 Dysmetabolic syndrome X 10/10/200810/2016 documented as of this encounter (statuses as of 01/15/2024) [facility]04[facility]2016 History of Past illness Narrative* Problem Noted Date Diagnosed Date Resolved Date Sebaceous cyst 01/25/2016 11/27/2016 Skin tag 01/25/2016 11/27/2016 Cutaneous abscess of chest wall 09/17/2015 11/27/2016 Gout 12/19/2009 11/27/2016 Dysmetabolic syndrome X 10/10/200810/2016 documented as of this encounter (statuses as of 01/16/2024) [facility] [place] [facility] Diagnosis Uncontrolled type 2 diabetes mellitus with hyperglycemia (HCC)- Primary Hyperlipidemia with target LDL less than 100 Other and unspecified hyperlipidemia Essential hypertension Unspecified essential hypertension Obesity, Class III, BMI 40-49.9 (morbid obesity) (HCC) Morbid obesity Actinic keratosis [facility] [place] [facility] Diagnosis Essential hypertension Unspecified essential hypertension [facility] [place] [facility]* Diagnosis Fatigue, unspecified type documented [facility] this encounter [facility] [place] [facility]* Diagnosis Uncontrolled type 2 diabetes mellitus with hyperglycemia (HCC)- Primary GERD without esophagitis Esophageal reflux Fatigue, unspecified type Essential hypertension Unspecified essential hypertension Hyperlipidemia with target LDL less than 100 Other and unspecified hyperlipidemia Vitamin D deficiency Unspecified vitamin D deficiency Obesity, Class III, BMI 40-49.9 (morbid obesity) (HCC) Morbid obesity [facility] [place] [facility] Diagnosis Uncontrolled type 2 diabetes mellitus with hyperglycemia (HCC)- Primary Hyperlipidemia with target LDL less than 100 Other and unspecified hyperlipidemia Carpal tunnel syndrome, bilateral Carpal tunnel syndrome Fatigue, unspecified type Essential hypertension Unspecified essential hypertension Obesity, Class III, BMI 40-49.9 (morbid obesity) (HCC) Morbid obesity [facility] encounter [facility] [place] [facility]* Diagnosis Class 3 severe obesity with serious comorbidity and body mass index (BMI) of 40.0 to 44.9 in adult, unspecified obesity type (HCC)- Primary MIKKI (obstructive sleep apnea) Obstructive sleep apnea (adult) (pediatric) Primary hypertension Unspecified essential hypertension Hyperlipidemia with target LDL less than 100 Other and unspecified hyperlipidemia GERD without esophagitis Esophageal reflux Vitamin D deficiency Unspecified vitamin D deficiency Controlled type 2 diabetes mellitus without complication, unspecified whether terminal operator insulin use (HCC) [facility] encounter [facility] [place] [facility] Diagnosis Abnormal chest x-ray- Primary Other nonspecific abnormal finding of lung field [facility] [place] [facility] Diagnosis Class 3 severe obesity with serious comorbidity and body mass index (BMI) of 40.0 to 44.9 in adult, unspecified obesity type (HCC) documented in this encounter [facility] note* Diagnosis Lung nodules- Primary Other nonspecific abnormal finding of lung field Morbid obesity (HCC) Morbid obesity [facility] [place] [facility] Diagnosis Body mass index 40.0-44.9, adult (HCC)- Primary Body Mass Index 40.0-44.9, adult Hyperlipidemia with target LDL less than 100 Other and unspecified hyperlipidemia Gout, unspecified cause, unspecified chronicity, unspecified site GERD without esophagitis Esophageal reflux Vitamin D deficiency Unspecified vitamin D deficiency MIKKI (obstructive sleep apnea) Obstructive sleep apnea (adult) (pediatric) Primary hypertension Unspecified essential hypertension Controlled type 2 diabetes mellitus without complication, without long-term current use of insulin ([facility]) Class 3 severe obesity with serious comorbidity and body mass index (BMI) of 40.0 to 44.9 in adult, unspecified obesity type (HCC) MIKKI (obstructive sleep apnea) Obstructive sleep apnea (adult) (pediatric) documented [facility] this encounter [facility] [place] [facility] Diagnosis MIKKI (obstructive sleep apnea)- Primary Obstructive sleep apnea (adult) (pediatric) Primary hypertension Unspecified essential hypertension Obesity, Class III, BMI 40-49.9 (morbid obesity) (HCC) Morbid obesity documented in this encounter [facility] [place] [facility]* Diagnosis Lung nodules- Primary Other nonspecific abnormal finding of lung field documented [facility] this encounter [facility] [place] [facility] Diagnosis Obesity, Class III, BMI 40-49.9 (morbid obesity) (HCC)- Primary Morbid obesity Controlled type 2 diabetes mellitus without complication, without long-term current use of insulin (HCC) Dietary counseling and surveillance Dietary surveillance and counseling documented in this encounter [facility] [place] [facility]* Diagnosis Lung nodules- Primary Other nonspecific abnormal finding of lung field documented [facility] this encounter [facility] [place] [facility] Diagnosis Obesity, Class III, BMI 40-49.9 (morbid obesity) (HCC)- Primary Morbid obesity Controlled type 2 diabetes mellitus without complication, without long-term current use of insulin (HCC) MIKKI (obstructive sleep apnea) Obstructive sleep apnea (adult) (pediatric) [facility] Essential hypertension Unspecified essential hypertension [facility] Diagnosis Uncontrolled type 2 diabetes mellitus with hyperglycemia (HCC)- Primary Chronic pain of both shoulders Pain in joint, shoulder region Finger pain, left Pain in limb Bilateral impacted cerumen Impacted cerumen Hyperlipidemia with target LDL less than 100 Other and unspecified hyperlipidemia Obesity, Class III, BMI 40-49.9 (morbid obesity) (HCC) Morbid obesity Fatigue, unspecified type Essential hypertension Unspecified essential hypertension MIKKI (obstructive sleep apnea) Obstructive sleep apnea (adult) (pediatric) documented in this encounter [facility] [place] [facility]* Diagnosis Uncontrolled type 2 diabetes mellitus with hyperglycemia (HCC) [facility] Diagnosis Gout, unspecified cause, unspecified chronicity, unspecified site [facility] [place] [facility] Diagnosis Vitamin B12 deficiency- Primary Other B-complex deficiencies Uncontrolled type 2 diabetes mellitus with hyperglycemia (HCC) Essential hypertension Unspecified essential hypertension Gout, unspecified cause, unspecified chronicity, unspecified site Diabetes mellitus type 2 with ketoacidosis, uncontrolled (HCC) Type II or unspecified type diabetes mellitus with ketoacidosis, uncontrolled Hypercholesteremia Pure hypercholesterolemia [facility] note* Diagnosis Uncontrolled type 2 diabetes mellitus with hyperglycemia (HCC)- Primary Trigeminal neuralgia of left side of face Essential hypertension Unspecified essential hypertension Vitamin B12 deficiency Other B-complex deficiencies [facility] Diagnosis Class 3 severe obesity with serious comorbidity and body mass index (BMI) of 40.0 to 44.9 in adult, unspecified obesity type (HCC) [facility] [place] [facility] Diagnosis Lung nodules Other nonspecific abnormal finding of lung field [facility] Diagnosis Class 3 severe obesity with serious comorbidity and body mass index (BMI) of 40.0 to 44.9 in adult, unspecified obesity type (HCC) [facility] Diagnosis Hyperlipidemia with target LDL less than 100 Other and unspecified hyperlipidemia [facility] Diagnosis Essential hypertension Unspecified essential hypertension [facility] Diagnosis Uncontrolled type 2 diabetes mellitus with hyperglycemia (HCC)- Primary Infected cyst of skin Sebaceous cyst Hyperlipidemia with target LDL less than 100 Other and unspecified hyperlipidemia Essential hypertension Unspecified essential hypertension Vitamin B12 deficiency Other B-complex deficiencies ED (erectile dysfunction) of organic origin Impotence of organic origin Screening for prostate cancer Special screening for malignant neoplasm of prostate [facility] [place] [facility] Diagnosis Low testosterone- Primary Other testicular hypofunction [facility]* Diagnosis Hyperlipidemia with target LDL less than 100 Other and unspecified hyperlipidemia [facility] [place] [facility]* Diagnosis Essential hypertension Unspecified essential hypertension Hyperlipidemia with target LDL less than 100 Other and unspecified hyperlipidemia [facility]* Diagnosis Cutaneous abscess of other site- Primary Uncontrolled type 2 diabetes mellitus with hyperglycemia (HCC) Dysuria [facility] [place] [facility]* Diagnosis Uncontrolled type 2 diabetes mellitus with hyperglycemia (HCC) [facility] Diagnosis Infected sebaceous cyst- Primary Sebaceous cyst Cutaneous abscess of other site [facility]* Diagnosis Infected cyst of skin- Primary Sebaceous cyst Infected sebaceous cyst Sebaceous cyst [facility]* Diagnosis Uncontrolled type 2 diabetes mellitus with hyperglycemia (HCC)- Primary [facility]* Diagnosis Uncontrolled type 2 diabetes mellitus with hyperglycemia (HCC) [facility]* Diagnosis Low testosterone in male- Primary [facility]* Diagnosis Gout, unspecified cause, unspecified chronicity, unspecified site [facility]* Diagnosis Hyperlipidemia with target LDL less than 100- Primary Other and unspecified hyperlipidemia Diabetes mellitus type 2 with ketoacidosis, uncontrolled (HCC) Type II or unspecified type diabetes mellitus with ketoacidosis, uncontrolled [facility]* Diagnosis Uncontrolled type 2 diabetes mellitus with hyperglycemia (HCC)- Primary Primary hypertension Unspecified essential hypertension Hyperlipidemia with target LDL less than 100 Other and unspecified hyperlipidemia MIKKI (obstructive sleep apnea) Obstructive sleep apnea (adult) (pediatric) Vitamin B12 deficiency Other B-complex deficiencies ED (erectile dysfunction) of organic origin Impotence of organic origin Morbid obesity (HCC) Morbid obesity Ptosis, left eyelid Unspecified ptosis of eyelid documented [facility] this encounter [facility] [place] [facility]* Diagnosis Hyperlipidemia with target LDL less than 100 Other and unspecified hyperlipidemia documented in this encounter [facility] [place] [facility]* Diagnosis MIKKI (obstructive sleep apnea)- Primary Obstructive sleep apnea (adult) (pediatric) Uncontrolled type 2 diabetes mellitus with hyperglycemia (HCC) Primary hypertension Unspecified essential hypertension Hyperlipidemia with target LDL less than 100 Other and unspecified hyperlipidemia Vitamin B12 deficiency Other B-complex deficiencies Ptosis, left eyelid Unspecified ptosis of eyelid Fatigue, unspecified type documented in this encounter [facility] [place] [facility]* Diagnosis Uncontrolled type 2 diabetes mellitus with hyperglycemia (HCC)- Primary Hyperlipidemia with target LDL less than 100 Other and unspecified hyperlipidemia Essential hypertension Unspecified essential hypertension Primary hypertension Unspecified essential hypertension Vitamin B12 deficiency Other B-complex deficiencies documented in this encounter [facility] [place] [facility]* Diagnosis Uncontrolled type 2 diabetes mellitus with hyperglycemia (HCC) documented in this encounter [facility] for referral (narrative)* Outpatient Procedure (Routine) - Closed Specialty Diagnoses / Procedures Referred By Contac t Referred [facility] Diagnoses Class 3 severe obesity with serious comorbidity and body mass index (BMI) of 40.0 to 44.9 in adult, unspecified obesity type (HCC) Procedures ECG COMPLETE ECG ROUTINE ECG W/LEAST 12 LDS W/I&R Reba Vaughan APRN.CNP [id number] [facility] [place] [address] [place] [address] Referral ID Status Reason Start Date Expiration Date V isits Requested Visits Authorized [id number] Closed Auto-Generate d Referral 10/24/2022 10/24/2023 1 1 AM [facility] for referral (narrative)* Diagnostic Procedure Only (Routine) - Closed Specialty Diagnoses / Procedures Referred By Contac t Referred To Contact [facility] IMAG[facility] Diagnoses Class 3 severe obesity with serious comorbidity and body mass index (BMI) of 40.0 to 44.9 in adult, unspecified obesity type (HCC) Procedures US ABD RT UPPER QUADRANT US ABDOMINAL REAL TIME W/IMAGE LIMITED Bulow, Reba, ELECTRIC MOTOR ANALYST.SOLE CONFORMING MACHINE OPERATOR [address] [place] [address] [facility] [address] Referral ID Status Reason Start Date Expiration Date V isits Requested Visits Authorized [id number] Closed Auto-Generate d Referral 10/24/2022 11/23/2023 1 1 [facility] for visit Narrative* Outpatient Procedure (Routine) - Closed Specialty Diagnoses / Procedures Referred By Contac t Referred To [facility] Diagnoses Class 3 severe obesity with serious comorbidity and body mass index (BMI) of 40.0 to 44.9 in adult, unspecified obesity type (HCC) Procedures ECG COMPLETE ECG ROUTINE ECG W/LEAST 12 LDS W/I&R Reba Vaughan, ELECTRIC MOTOR ANALYST.SOLE CONFORMING MACHINE OPERATOR [address] [place] [address] [facility] [place] [facility] [address] [place] [address] Referral ID Status Reason Start Date Expiration Date V isits Requested Visits Authorized [id number] Closed Auto-Generate d Referral 10/24/2022 10/24/2023 1 1 [facility] Reason for Referral Specialty Diagnoses / Procedures Referred By Contac t Referred To Contact Diagnoses Diabetes mellitus type 2 with ketoacidosis, uncontrolled (HCC) Ean Luu L, DO [address] [place] [address] Referral ID Status Reason Start Date Expiration Date Visits Re quested Visits Authorized [id number] Closed 1 1 Referral ID Status Reason Start Date Expiration Date Visits Re quested Visits Authorized [id number] Closed 1 1 Specialty Diagnoses / Procedures Referred By Contac t Referred To Contact Diagnoses MIKKI (obstructive sleep apnea) Procedures CONSULT TO SLEEP MEDICINE - ADULT OFFICE/OUTPATIENT [facility] MDM 60-74 MINUTES Reba Vaughan, ELECTRIC MOTOR ANALYST.SOLE CONFORMING MACHINE OPERATOR [address] [place] [address] Referral ID Status Reason Start Date Expiration Date Visits Requested Visits Authorized [id number] Authorized PCP Requested Referral 10/24/2022 10/24/2023 1 1 Specialty Diagnoses / Procedures Referred By Contac t Referred To Contact [facility] Diagnoses Class 3 severe obesity with serious comorbidity and body mass index (BMI) of 40.0 to 44.9 in adult, unspecified obesity type (HCC) MIKKI (obstructive sleep apnea) Procedures HOME SLEEP APNEA TEST (HSAT) SLEEP STD AIRFLOW HRT RATE&O2 SAT EFFORT UNATT Reba Vaughan, ELECTRIC MOTOR ANALYST.SOLE CONFORMING MACHINE OPERATOR [address] [id number] [place] [address] Referral ID Status Reason Start Date Expiration Date Visits Requested Visits Authorized [id number] Authorized Auto-Generat ed Referral 10/24/2022 10/24/2023 1 1 Specialty Diagnoses / Procedures Referred By Contac t Referred To Contact US IMAGING Diagnoses Class 3 severe obesity with serious comorbidity and body mass index (BMI) of 40.0 to 44.9 in adult, unspecified obesity type (HCC) Procedures US ABD RT UPPER QUADRANT US ABDOMINAL REAL TIME W/IMAGE LIMITED Reba Vaughan, ELECTRIC MOTOR ANALYST.SOLE CONFORMING MACHINE OPERATOR [address] [place] [address] [facility] Referral ID Status Reason Start Date Expiration Date Visits Requested Visits Authorized [id number] Authorized Auto-Generat ed Referral 10/24/2022 11/23/2023 1 1 Specialty Diagnoses / Procedures Referred By Contac t Referred [facility] Diagnoses Class 3 severe obesity with serious comorbidity and body mass index (BMI) of 40.0 to 44.9 in adult, unspecified obesity type (HCC) Procedures ECG COMPLETE ECG ROUTINE ECG W/LEAST 12 LDS W/I&R Reba Vaughan, ELECTRIC MOTOR ANALYST.SOLE CONFORMING MACHINE OPERATOR [address] [place] [address] [facility] [address] [address] Referral ID Status Reason Start Date Expiration Date Visits Requested Visits Authorized [id number] Pending Review Auto-Generat ed Referral 10/24/2022 10/24/2023 1 1 Specialty Diagnoses / Procedures Referred By Contac t Referred To Contact CT IMAGING Diagnoses Lung nodules Procedures CT CHEST WO IVCON DIAGNOSTIC COMPUTED TOMOGRAPHY THORAX W/O Shara Pretty MD [address] [facility] [place] [address] Ct Imaging Referral ID Status Reason Start Date Expiration Date Visits Requested Visits Authorized [id number] Pending Review Auto-Generat ed Referral 10/30/2022 11/29/2023 1 1 Referral ID Status Reason Start Date Expiration Date Visits Requested Visits Authorized [id number] Pending Review Auto-Generat ed Referral 02/09/2023 01/28/2024 1 1 Specialty Diagnoses / Procedures Referred By Contac t Referred To Contact CT IMAGING Diagnoses Lung nodules Procedures CT CHEST WO IVCON DIAGNOSTIC COMPUTED TOMOGRAPHY THORAX W/O Shara Pretty MD [address] [place] [address] Ct Imaging [facility] Referral ID Status Reason Start Date Expiration Date V isits Requested Visits Authorized [id number] Denied Auto-Generat ed Referral Patient Cleared - Admin/Chairm an/Director advise to proceed or did not respond 10/30/2022 12/29/2022 1 0 Specialty Diagnoses / Procedures Referred By Contac t Referred To Contact General Surgery Diagnoses Cutaneous abscess of other site Procedures CONSULT TO GENERAL SURGERY OFFICE/OUTPATIENT [facility] MDM 60 MINUTES Jenn Sotelo APRN.SOLE CONFORMING MACHINE OPERATOR [address] [place] [address] Referral ID Status Reason Start Date Expiration Date Visits Requested Visits Authorized [id number] Authorized PCP Requested Referral 02/10/2024 02/09/2025 1 1 Advance Directives Documents on File Type Date Recorded 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 Advance Directive(s) Advance Directive(s) 12/25/2020 4:50 PM Advance Directive(s) 02/16/2020 11:03 AM Advance Directive(s) 02/10/2020 10:50 AM Advance Directive(s) 05/19/2018 4:30 PM Documents on File Type Date Recorded 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 Advance Directive(s) Advance Directive(s) 12/25/2020 4:50 PM Advance Directive(s) 02/16/2020 11:03 AM Advance Directive(s) 02/10/2020 10:50 AM Advance Directive(s) 05/19/2018 4:30 PM Summary Purpose Family History No Family History Records FoundNo Family History Records FoundNo Family History Records Found Additional Source Comments Source Comments (unrecognize d section and content) In the event this informatio n is protected by the Federal Confidentiality of Alcohol and Drug Abuse Patient Records regulations: The Federal rules restrict any use of the information to criminally investigate or prosecute any alcohol or drug abuse patient.[facility] the event this information is protected by the Federal Confidentiality of Alcohol and Drug Abuse Patient Records regulations: The Federal rules restrict any use of the information to criminally investigate or prosecute any alcohol or drug abuse patient.[facility] the event this information is protected by the Federal Confidentiality of Alcohol and Drug Abuse Patient Records regulations: The Federal rules restrict any use of the information to criminally investigate or prosecute any alcohol or drug abuse patient.[facility] the event this information is protected by the Federal Confidentiality of Alcohol and Drug Abuse Patient Records regulations: The Federal rules restrict any use of the information to criminally investigate or prosecute any alcohol or drug abuse patient.[facility] the event this information is protected by the Federal Confidentiality of Alcohol and Drug Abuse Patient Records regulations: The Federal rules restrict any use of the information to criminally investigate or prosecute any alcohol or drug abuse patient.[facility] the event this information is protected by the Federal Confidentiality of Alcohol and Drug Abuse Patient Records regulations: The Federal rules restrict any use of the information to criminally investigate or prosecute any alcohol or drug abuse patient.[facility]In the event this information is protected by the Federal Confidentiality of Alcohol and Drug Abuse Patient Records regulations: The Federal rules restrict any use of the information to criminally investigate or prosecute any alcohol or drug abuse patient.[facility] the event this information is protected by the Federal Confidentiality of Alcohol and Drug Abuse Patient Records regulations: The Federal rules restrict any use of the information to criminally investigate or prosecute any alcohol or drug abuse patient.[facility]In the event this information is protected by the Federal Confidentiality of Alcohol and Drug Abuse Patient Records regulations: The Federal rules restrict any use of the information to criminally investigate or prosecute any alcohol or drug abuse patient.[facility]In the event this information is protected by the Federal Confidentiality of Alcohol and Drug Abuse Patient Records regulations: The Federal rules restrict any use of the information to criminally investigate or prosecute any alcohol or drug abuse patient.[facility] the event this information is protected by the Federal Confidentiality of Alcohol and Drug Abuse Patient Records regulations: The Federal rules restrict any use of the information to criminally investigate or prosecute any alcohol or drug abuse patient.[facility] the event this information is protected by the Federal Confidentiality of Alcohol and Drug Abuse Patient Records regulations: The Federal rules restrict any use of the information to criminally investigate or prosecute any alcohol or drug abuse patient.[facility] the event this information is protected by the Federal Confidentiality of Alcohol and Drug Abuse Patient Records regulations: The Federal rules restrict any use of the information to criminally investigate or prosecute any alcohol or drug abuse patient.[facility]In the event this information is protected by the Federal Confidentiality of Alcohol and Drug Abuse Patient Records regulations: The Federal rules restrict any use of the information to criminally investigate or prosecute any alcohol or drug abuse patient.[facility] HospitalIn the event this information is protected by the Federal Confidentiality of Alcohol and Drug Abuse Patient Records regulations: The Federal rules restrict any use of the information to criminally investigate or prosecute any alcohol or drug abuse patient.[facility] HospitalIn the event this information is protected by the Federal Confidentiality of Alcohol and Drug Abuse Patient Records regulations: The Federal rules restrict any use of the information to criminally investigate or prosecute any alcohol or drug abuse patient.[facility] HospitalIn the event this information is protected by the Federal Confidentiality of Alcohol and Drug Abuse Patient Records regulations: The Federal rules restrict any use of the information to criminally investigate or prosecute any alcohol or drug abuse patient.[facility] HospitalIn the event this information is protected by the Federal Confidentiality of Alcohol and Drug Abuse Patient Records regulations: The Federal rules restrict any use of the information to criminally investigate or prosecute any alcohol or drug abuse patient.[facility] HospitalIn the event this information is protected by the Federal Confidentiality of Alcohol and Drug Abuse Patient Records regulations: The Federal rules restrict any use of the information to criminally investigate or prosecute any alcohol or drug abuse patient.[facility] HospitalIn the event this information is protected by the Federal Confidentiality of Alcohol and Drug Abuse Patient Records regulations: The Federal rules restrict any use of the information to criminally investigate or prosecute any alcohol or drug abuse patient.[facility]In the event this information is protected by the Federal Confidentiality of Alcohol and Drug Abuse Patient Records regulations: The Federal rules restrict any use of the information to criminally investigate or prosecute any alcohol or drug abuse patient.[facility]In the event this information is protected by the Federal Confidentiality of Alcohol and Drug Abuse Patient Records regulations: The Federal rules restrict any use of the information to criminally investigate or prosecute any alcohol or drug abuse patient.[facility] HospitalIn the event this information is protected by the Federal Confidentiality of Alcohol and Drug Abuse Patient Records regulations: The Federal rules restrict any use of the information to criminally investigate or prosecute any alcohol or drug abuse patient.[facility] HospitalIn the event this information is protected by the Federal Confidentiality of Alcohol and Drug Abuse Patient Records regulations: The Federal rules restrict any use of the information to criminally investigate or prosecute any alcohol or drug abuse patient.[facility] HospitalIn the event this information is protected by the Federal Confidentiality of Alcohol and Drug Abuse Patient Records regulations: The Federal rules restrict any use of the information to criminally investigate or prosecute any alcohol or drug abuse patient.[facility] HospitalIn the event this information is protected by the Federal Confidentiality of Alcohol and Drug Abuse Patient Records regulations: The Federal rules restrict any use of the information to criminally investigate or prosecute any alcohol or drug abuse patient.[facility] HospitalIn the event this information is protected by the Federal Confidentiality of Alcohol and Drug Abuse Patient Records regulations: The Federal rules restrict any use of the information to criminally investigate or prosecute any alcohol or drug abuse patient.[facility] HospitalIn the event this information is protected by the Federal Confidentiality of Alcohol and Drug Abuse Patient Records regulations: The Federal rules restrict any use of the information to criminally investigate or prosecute any alcohol or drug abuse patient.[facility] HospitalIn the event this information is protected by the Federal Confidentiality of Alcohol and Drug Abuse Patient Records regulations: The Federal rules restrict any use of the information to criminally investigate or prosecute any alcohol or drug abuse patient.[facility] HospitalIn the event this information is protected by the Federal Confidentiality of Alcohol and Drug Abuse Patient Records regulations: The Federal rules restrict any use of the information to criminally investigate or prosecute any alcohol or drug abuse patient.[facility] HospitalIn the event this information is protected by the Federal Confidentiality of Alcohol and Drug Abuse Patient Records regulations: The Federal rules restrict any use of the information to criminally investigate or prosecute any alcohol or drug abuse patient.[facility] HospitalIn the event this information is protected by the Federal Confidentiality of Alcohol and Drug Abuse Patient Records regulations: The Federal rules restrict any use of the information to criminally investigate or prosecute any alcohol or drug abuse patient.[facility] HospitalIn the event this information is protected by the Federal Confidentiality of Alcohol and Drug Abuse Patient Records regulations: The Federal rules restrict any use of the information to criminally investigate or prosecute any alcohol or drug abuse patient.[facility] HospitalIn the event this information is protected by the Federal Confidentiality of Alcohol and Drug Abuse Patient Records regulations: The Federal rules restrict any use of the information to criminally investigate or prosecute any alcohol or drug abuse patient.[facility] HospitalIn the event this information is protected by the Federal Confidentiality of Alcohol and Drug Abuse Patient Records regulations: The Federal rules restrict any use of the information to criminally investigate or prosecute any alcohol or drug abuse patient.[facility] HospitalIn the event this information is protected by the Federal Confidentiality of Alcohol and Drug Abuse Patient Records regulations: The Federal rules restrict any use of the information to criminally investigate or prosecute any alcohol or drug abuse patient.[facility] HospitalIn the event this information is protected by the Federal Confidentiality of Alcohol and Drug Abuse Patient Records regulations: The Federal rules restrict any use of the information to criminally investigate or prosecute any alcohol or drug abuse patient.[facility] HospitalIn the event this information is protected by the Federal Confidentiality of Alcohol and Drug Abuse Patient Records regulations: The Federal rules restrict any use of the information to criminally investigate or prosecute any alcohol or drug abuse patient.[facility] HospitalIn the event this information is protected by the Federal Confidentiality of Alcohol and Drug Abuse Patient Records regulations: The Federal rules restrict any use of the information to criminally investigate or prosecute any alcohol or drug abuse patient.[facility] HospitalIn the event this information is protected by the Federal Confidentiality of Alcohol and Drug Abuse Patient Records regulations: The Federal rules restrict any use of the information to criminally investigate or prosecute any alcohol or drug abuse patient.[facility] HospitalIn the event this information is protected by the Federal Confidentiality of Alcohol and Drug Abuse Patient Records regulations: The Federal rules restrict any use of the information to criminally investigate or prosecute any alcohol or drug abuse patient.[facility] HospitalIn the event this information is protected by the Federal Confidentiality of Alcohol and Drug Abuse Patient Records regulations: The Federal rules restrict any use of the information to criminally investigate or prosecute any alcohol or drug abuse patient.[facility] HospitalIn the event this information is protected by the Federal Confidentiality of Alcohol and Drug Abuse Patient Records regulations: The Federal rules restrict any use of the information to criminally investigate or prosecute any alcohol or drug abuse patient.[facility] HospitalIn the event this information is protected by the Federal Confidentiality of Alcohol and Drug Abuse Patient Records regulations: The Federal rules restrict any use of the information to criminally investigate or prosecute any alcohol or drug abuse patient.[facility] HospitalIn the event this information is protected by the Federal Confidentiality of Alcohol and Drug Abuse Patient Records regulations: The Federal rules restrict any use of the information to criminally investigate or prosecute any alcohol or drug abuse patient.[facility] HospitalIn the event this information is protected by the Federal Confidentiality of Alcohol and Drug Abuse Patient Records regulations: The Federal rules restrict any use of the information to criminally investigate or prosecute any alcohol or drug abuse patient.[facility] HospitalIn the event this information is protected by the Federal Confidentiality of Alcohol and Drug Abuse Patient Records regulations: The Federal rules restrict any use of the information to criminally investigate or prosecute any alcohol or drug abuse patient.[facility] HospitalIn the event this information is protected by the Federal Confidentiality of Alcohol and Drug Abuse Patient Records regulations: The Federal rules restrict any use of the information to criminally investigate or prosecute any alcohol or drug abuse patient.[facility] HospitalIn the event this information is protected by the Federal Confidentiality of Alcohol and Drug Abuse Patient Records regulations: The Federal rules restrict any use of the information to criminally investigate or prosecute any alcohol or drug abuse patient.[facility] HospitalIn the event this information is protected by the Federal Confidentiality of Alcohol and Drug Abuse Patient Records regulations: The Federal rules restrict any use of the information to criminally investigate or prosecute any alcohol or drug abuse patient.[facility] HospitalIn the event this information is protected by the Federal Confidentiality of Alcohol and Drug Abuse Patient Records regulations: The Federal rules restrict any use of the information to criminally investigate or prosecute any alcohol or drug abuse patient.[facility] HospitalIn the event this information is protected by the Federal Confidentiality of Alcohol and Drug Abuse Patient Records regulations: The Federal rules restrict any use of the information to criminally investigate or prosecute any alcohol or drug abuse patient.[facility] HospitalIn the event this information is protected by the Federal Confidentiality of Alcohol and Drug Abuse Patient Records regulations: The Federal rules restrict any use of the information to criminally investigate or prosecute any alcohol or drug abuse patient.[facility] HospitalIn the event this information is protected by the Federal Confidentiality of Alcohol and Drug Abuse Patient Records regulations: The Federal rules restrict any use of the information to criminally investigate or prosecute any alcohol or drug abuse patient.[facility] HospitalIn the event this information is protected by the Federal Confidentiality of Alcohol and Drug Abuse Patient Records regulations: The Federal rules restrict any use of the information to criminally investigate or prosecute any alcohol or drug abuse patient.[facility] HospitalIn the event this information is protected by the Federal Confidentiality of Alcohol and Drug Abuse Patient Records regulations: The Federal rules restrict any use of the information to criminally investigate or prosecute any alcohol or drug abuse patient.[facility] HospitalIn the event this information is protected by the Federal Confidentiality of Alcohol and Drug Abuse Patient Records regulations: The Federal rules restrict any use of the information to criminally investigate or prosecute any alcohol or drug abuse patient.[facility] Reason for Visit (unrecogniz ed section and content) Reason Comments Follow Up 3 months Reason Comments Results Reason Onset Date Comments Refill Request 01/29/2022 Reason Onset Date Comments Refill Request 05/05/2022 Reason Comments F/U 3 Month Reason Comments Insurance Authorization Reason Comments Obesity Weight Loss Surgery Reason Comments Abnormal Chest X-ray Reason Comments Weight Loss Surgery Reason Comments New Patient Evaluation Specialty Diagnoses / Procedures Referred By Contac t Referred To Contact Diagnoses MIKKI (obstructive sleep apnea) Procedures CONSULT TO SLEEP MEDICINE - ADULT OFFICE/OUTPATIENT NEW HIGH MDM 60-74 MINUTES Reba Vaughan, ELECTRIC MOTOR ANALYST.SOLE CONFORMING MACHINE OPERATOR [address] [place] [id number] Referral ID Status Reason Start Date Expiration Date V isits Requested Visits Authorized [id number] Closed PCP Requested Referral 10/24/2022 10/24/2023 1 1 Reason Comments Orders Reason Comments Patient Education Assessment Reason Comments Patient Question His new CPAP machine Reason Comments Weight Loss Surgery procedure selection Reason Comments Refill Request Reason Comments Medication Problem Reason Comments PAP Therapy Follow Up 11/27/22 - 02/24/23 Reason Onset Date Comments Refill Request 04/02/2023 Reason Comments Patient Question Reason Onset Date Comments Refill Request 05/18/2023 Reason Comments Insurance Authorization [employer] Reason Comments 6 Month Exam Reason Comments Radiology CT Specialty Diagnoses / Procedures Referred By Contac t Referred To Contact CT IMAGING Diagnoses Lung nodules Procedures CT CHEST WO IVCON DIAGNOSTIC COMPUTED TOMOGRAPHY THORAX W/O Shara Pretty MD [address] [place] [address] Ct Imaging [place] [address] Referral ID Status Reason Start Date Expiration Date V isits Requested Visits Authorized [id number] Denied Auto-Generat ed Referral Patient Cleared - Admin/Chairm an/Director advise to proceed or did not respond 10/30/2022 12/29/2022 1 0 Reason Comments Radiology US Specialty Diagnoses / Procedures Referred By Contac t Referred To Contact US IMAGING Diagnoses Class 3 severe obesity with serious comorbidity and body mass index (BMI) of 40.0 to 44.9 in adult, unspecified obesity type (HCC) Procedures US ABD RT UPPER QUADRANT US ABDOMINAL REAL TIME W/IMAGE LIMITED Reba Vaughan, TORIE.SOLE CONFORMING MACHINE OPERATOR [address] [place] [address] [place] [phone] Referral ID Status Reason Start Date Expiration Date V isits Requested Visits Authorized [id number] Closed Auto-Generate d Referral 10/24/2022 11/23/2023 1 1 Reason Onset Date Comments Refill Request 08/03/2023 Reason Comments 6 month f/up Reason Comments Results, Lab Reason Onset Date Comments Refill Request 01/31/2024 Reason Comments follow up groin remains red and sore hanna n after second cour Reason Comments Consult L groin cutaneous ab scess Specialty Diagnoses / Procedures Referred By Contac t Referred To Contact General Surgery Diagnoses Cutaneous abscess of other site Procedures CONSULT TO GENERAL SURGERY OFFICE/OUTPATIENT [facility] 60 MINUTES Jenn Sotelo, ELECTRIC MOTOR ANALYST.SOLE CONFORMING MACHINE OPERATOR [address] [place] [address] Referral ID Status Reason Start Date Expiration Date V isits Requested Visits Authorized [id number] Closed PCP Requested Referral 02/10/2024 02/09/2025 1 1 Reason Comments Follow Up 10-14 day L groin ab scess Reason Onset Date Comments Refill Request 03/07/2024 Reason Onset Date Comments Refill Request 03/16/2024 Reason Comments Patient Update Reason Comments Low Testosterone Reason Onset Date Comments Refill Request 04/19/2024 Reason Onset Date Comments Refill Request 07/14/2024 Reason Onset Date Comments Refill Request 03/05/2025 Care Teams (unrecognized sec tion and content) Device Engineer Relationship Specialty Start Date End Date Ean Luu DO [address] [place] [address] PCP - General Family Practice 05/03/13 Device Engineer Relationship Specialty Start Date End Date Ean Luu DO [address] [place] [address] PCP - General Family Practice 05/03/13 Device Engineer Relationship Specialty Start Date End Date Ean Luu DO [address] [place], [place] [id number] PCP - General Family Practice 05/03/13 Device Engineer Relationship Specialty Start Date End Date Ean Luu, DO [address] [place] [address] PCP - General Family Practice 05/03/13 Device Engineer Relationship Specialty Start Date End Date Ean Luu, DO [address] [place] [address] PCP - General Family Medicine 05/03/13 Device Engineer Relationship Specialty Start Date End Date Ean Luu, DO [address] [place] [address] PCP - General Family Medicine 05/03/13 Device Engineer Relationship Specialty Start Date End Date Ean Luu, DO [address] [place] [address] PCP - General Family Medicine 05/03/13 Device Engineer Relationship Specialty Start Date End Date Ean Luu, DO [address] [place] [address] PCP - General Family Medicine 05/03/13 Device Engineer Relationship Specialty Start Date End Date Ean Luu, DO [address] [place] [address] PCP - General Family Medicine 05/03/13 Device Engineer Relationship Specialty Start Date End Date Ean Luu, DO [address] [place] [address] PCP - General Family Medicine 05/03/13 Device Engineer Relationship Specialty Start Date End Date Ean Luu, DO [address] [place] [address] PCP - General Family Medicine 05/03/13 Device Engineer Relationship Specialty Start Date End Date Ean Luu, DO [address] [place] [address] PCP - General Family Medicine 05/03/13 Device Engineer Relationship Specialty Start Date End Date Ean Luu, DO [address] [place] [address] PCP - General Family Medicine 05/03/13 Device Engineer Relationship Specialty Start Date End Date Ean Luu, DO [address] [place] [address] PCP - General Family Medicine 05/03/13 Device Engineer Relationship Specialty Start Date End Date Ean Luu, DO [address] [place] [address] PCP - General Family Medicine 05/03/13 Device Engineer Relationship Specialty Start Date End Date Ean Luu, DO [address] [place] [address] PCP - General Family Medicine 05/03/13 Device Engineer Relationship Specialty Start Date End Date Ean Luu, DO [address] [place] [address] PCP - General Family Medicine 05/03/13 Device Engineer Relationship Specialty Start Date End Date Ean Luu, DO [address] [place] [address] PCP - General Family Medicine 05/03/13 Device Engineer Relationship Specialty Start Date End Date Ean Luu, DO [address] [place] [address] PCP - General Family Medicine 05/03/13 Device Engineer Relationship Specialty Start Date End Date Ean Luu, DO [address] [place] [address] PCP - General Family Medicine 05/03/13 Device Engineer Relationship Specialty Start Date End Date Ean Luu, DO [address] [place] [address] PCP - General Family Medicine 05/03/13 Device Engineer Relationship Specialty Start Date End Date Ean Luu DO [address] [facility] [place] [address] PCP - General Family Medicine 05/03/13 Device Engineer Relationship Specialty Start Date End Date Ean Luu DO [address] [facility] [place] [place] [address] PCP - General Family Medicine 05/03/13 Device Engineer Relationship Specialty Start Date End Date Ean Luu DO [address] [place] [address] PCP - General Family Medicine 05/03/13 Device Engineer Relationship Specialty Start Date End Date Ean Luu DO [address] [place] [address] PCP - General Family Medicine 05/03/13 Device Engineer Relationship Specialty Start Date End Date Ean Luu DO [address] [facility] [place] [place] [address] PCP - General Family Medicine 05/03/13 Device Engineer Relationship Specialty Start Date End Date Ean Luu DO [address] [facility] [place] [place] [address] PCP - General Family Medicine 05/03/13 Device Engineer Relationship Specialty Start Date End Date Ean Luu DO [address] [facility] [place] [address] PCP - General Family Medicine 05/03/13 Device Engineer Relationship Specialty Start Date End Date Ean Luu DO [address] [facility] [address] PCP - General Family Medicine 05/03/13 Device Engineer Relationship Specialty Start Date End Date Ean Luu, [address] [facility] [address] PCP - General Family Medicine 05/03/13 Device Engineer Relationship Specialty Start Date End Date Ean Luu, DO [address] [place] [address] PCP - General Family Medicine 05/03/13 Device Engineer Relationship Specialty Start Date End Date Ean Luu, [address] [place] [address] PCP - General Family Medicine 05/03/13 Device Engineer Relationship Specialty Start Date End Date Ean Luu, [address] [facility] [place] [address] PCP - General Family Medicine 05/03/13 Device Engineer Relationship Specialty Start Date End Date Ean Luu, DO [address] [place] [address] PCP - General Family Medicine 05/03/13 Device Engineer Relationship Specialty Start Date End Date Ean Luu, [address] [facility] [place] [address] PCP - General Family Medicine 05/03/13 Device Engineer Relationship Specialty Start Date End Date Ean Luu, [address] [place] [address] PCP - General Family Medicine 05/03/13 Device Engineer Relationship Specialty Start Date End Date Ean Luu DO [address] [facility] [place] [address] PCP - General Family Medicine 05/03/13 Device Engineer Relationship Specialty Start Date End Date Ean Luu DO [address] [facility] [place] [address] PCP - General Family Medicine 05/03/13 Device Engineer Relationship Specialty Start Date End Date Ean Luu DO [address] [facility] [place] [address] PCP - [facility] Medicine 05/03/13 Device Engineer Relationship Specialty Start Date End Date Ean Luu DO [address] [facility] [place] [address] PCP - General Family Medicine 05/03/13 Jenn Sotelo, ELECTRIC MOTOR ANALYST.SOLE CONFORMING MACHINE OPERATOR [address] [facility] [place] [address] Rrts [facility] 09/04/24 Alli Mullen, ELECTRIC MOTOR ANALYST.SOLE CONFORMING MACHINE OPERATOR [address] [facility] [place] [address] Rrts [facility] 09/04/24 Device Engineer Relationship Specialty Start Date End Date Ean Luu DO [address] [facility] [place] [address] PCP - General [facility] Medicine 05/03/13 Alli Mullen, ELECTRIC MOTOR ANALYST.SOLE CONFORMING MACHINE OPERATOR [address] [facility] [place] [address] Rrts [facility] Medicine 09/04/24 (unrecognized sect ion and content) No Status Records FoundNo Status Records FoundNo Status Records Found INFORMATION SOURCE (unrecogn ized section and content) DATE CREATED AUTHOR 12/05/2022 [facility] DATE CREATED AUTHOR AUTHOR'S JENNIFFER ATION 12/09/2024 [facility] DATE CREATED AUTHOR AUTHOR'S ORGANIZ ATION 12/13/2024 [facility] FOR RECORDS PERTAINING TO PATIENTS WHO ARE OR HAVE BEEN ENROLLED IN A CHEMICAL DEPENDENCY/SUBSTANCEABUSE PROGRAM, SOME INFORMATION MAY BE OMITTED. This clinical summary was aggregated from multiple sources. Caution should be exercised in using it in the provision of clinical care. This summary normalizes information from multiple sources, and as a consequence, information in this document may materially change the coding, format and clinical context of patient data. In addition, data may be omitted in some cases. CLINICAL DECISIONS SHOULD BE BASED ON THE PRIMARY CLINICAL RECORDS. [employer] provides no warranty or guarantee of the accuracy or completeness of information in this document.
[2025-03-24] MEDS: 0.9% Normal Saline (1000mL) 1,000 ML 1000 ML IV (19:56)
[2025-03-24] MEDS: MethylPREDNISolone 125 MG/2 ML Vial IV (19:57)
[2025-03-24] MEDS: Ondansetron 4 MG/2 ML Vial IV (20:03)
[2025-03-24 20:22] LABS: Absolute Lymphocyte Count 4.14 X10^3/uL (0.83-4.51); Basophil% 0.9 % (0-1); Eosinophil# 0.42 X10^3/uL; Lymphocyte # 4.14 X10^3/ul (0.83-4.51); Lymphocyte % 19.5 % (19-41); Mean Corp Hgb Conc 33.2 g/dL (32-36); Mean Corpuscular Volume 84.4 fL (80-94); Monocyte# 1.18 X10^3/uL; Monocyte% 5.6 % (0-10); NRBC Flagged by Analyzer 0 % (0-5); Neutrophil # 14.99 X10^3/uL (2.7-7.7); Neutrophil % 70.6 % (47-70); Platelet Count 454 K/mm3 (150-450); RBC Distribution Width CV 14.6 % (11.6-14.6); RBC Distribution Width SD 42.7 fl (35.1-43.9); Red Blood Count 6.67 M/mm3 (4.6-6.2); White Blood Count 21.2 K/mm3 (4.4-11.0)
[2025-03-24 20:56] VITALS: BP 113/74; PULSE 103; O2SAT 93
[2025-03-24 21:14] LABS: Anion Gap 19 (5-15); BUN 26 mg/dL (4-19); BUN/Creat Ratio 16.3 RATIO (10-20); Calcium,Total 9.4 mg/dL (7.6-11.0); Carbon Dioxide 13.4 mmol/L (21.0-32.0); Chloride 97 mmol/L (98-108); Creatinine, Serum 1.56 mg/dL (0.70-1.20); EST Glomerular Filtration Rate 54 (>60); Estimated Creatinine Clearance 74.06 ml/min (50-250); Glucose 391 mg/dL (70-99); Potassium 3.7 mmol/L (3.3-5.1); Sodium Level 130 mmol/L (133-145)
[2025-03-24 21:15] LABS: Lactic Acid 5.9 mmol/L (0.0-2.0)
[2025-03-24 21:28] LABS: Hematocrit 56.3 % (40-54)
[2025-03-24 21:32] LABS: Hemoglobin 18.7 g/dL (13.0-16.5)
[2025-03-24 22:00] VITALS: BP 113/74; PULSE 103; TEMP 37; O2SAT 93
[2025-03-24 22:20] VITALS: BP 101/56; PULSE 104; RESP 19; TEMP 37; O2SAT 93
--- NOTE | 2025-03-24 22:25 | CT_ITS ---
EXAM: CT Abdomen and Pelvis With Intravenous Contrast CLINICAL INDICATION: VOMITING AND DEHYDRATION AND HYPOTENSION TECHNIQUE: Axial computed tomography images of the abdomen and pelvis with intravenous contrast. This CT exam was performed using one or more of the following dose reduction techniques: automated exposure control, adjustment of the mA and/or kV according to patient size, and/or use of iterative reconstruction technique. COMPARISON: No relevant prior studies available. FINDINGS: LUNG BASES: Unremarkable. No mass. No consolidation. MEDIASTINUM: Small esophageal hiatal hernia. ABDOMEN: LIVER: Hepatomegaly with fatty infiltration. GALLBLADDER AND BILE DUCTS: Unremarkable. No calcified stones. No ductal dilation. PANCREAS: Unremarkable. No mass. No ductal dilation. SPLEEN: Unremarkable. No splenomegaly. ADRENALS: Unremarkable. No mass. KIDNEYS AND URETERS: Unremarkable. No stones within either kidney. No hydronephrosis. STOMACH AND BOWEL: Fecal retention in the colon consistent with constipation. No obstruction. No mucosal thickening. PELVIS: APPENDIX: No findings to suggest acute appendicitis. BLADDER: Unremarkable. No mass. REPRODUCTIVE: Unremarkable as visualized. ABDOMEN and PELVIS: INTRAPERITONEAL SPACE: Unremarkable. No free air. No significant fluid collection. BONES/JOINTS: Degenerative disc disease throughout the lumbar spine. Degenerative facet arthropathy throughout the lumbar spine, most prominent in the lower lumbar spine. No acute fracture. No dislocation. SOFT TISSUES: Umbilical hernia containing fat. VASCULATURE: Scattered calcified atherosclerotic disease of aorta. No abdominal aortic aneurysm. LYMPH NODES: Unremarkable. No enlarged lymph nodes. CT/Abdomen/Pelvis W IV Cont ONLY IMPRESSION: 1. Small esophageal hiatal hernia. 2. Hepatomegaly with fatty infiltration. 3. Fecal retention in the colon consistent with constipation. 4. Umbilical hernia containing fat. 5. No obstructive uropathy. 6. Degenerative changes lumbar spine as described. Reading Location: [id number]
[2025-03-24] MEDS: 0.9% Normal Saline (1000mL) 1,000 ML 999 ML IV (22:32)
[2025-03-24 23:08] VITALS: BP 101/56; PULSE 104; RESP 16; TEMP 37; O2SAT 93
[2025-03-24 23:13] LABS: AST(SGOT) 23 U/L (<=37); Alanine Aminotransfer ALT/SGPT 27 U/L (<=46); Albumin, Serum 4.5 g/dL (3.5-5.0); Alkaline Phosphatase 110 U/L (40-129); Bilirubin, Direct 0.31 mg/dL (0.00-0.30); Lipase 140 U/L (13-75); Protein, Total 7.6 g/dL (5.9-8.4); Total Bilirubin 1.02 mg/dL (0.00-1.30)
[2025-03-24 23:20] VITALS: BP 116/67; PULSE 100; RESP 16; TEMP 37; O2SAT 94
[2025-03-24 23:48] LABS: Mucous, Urine 0 SEEN /hpf (<or=2+); Red Blood Cells-Urine 0 SEEN /hpf (0-5); Squamous Epithelial Cells - UA 0 SEEN /hpf (0-5); White Blood Cells 0 SEEN /hpf (0-5)
[2025-03-24 23:49] LABS: Color, Urine Yellow (Yellow); Glucose, Dipstick 1000 mg/dl (Normal); Ketone-Dipstick 5 mg/dl (Negative); Leukocyte Esterase-Dipstick Negative /ul (Negative); Nitrite-Dipstick Negative (Negative); Occult Blood-Urine Negative /ul (Negative); Protein-Dipstick 100 mg/dl (Negative); Urine Bilirubin Dipstick Negative (Negative); Urine Clarity Clear (Clear); Urine Urobilinogen Normal (Normal)
[2025-03-25] VITALS (23 sets, daily range): BP systolic 114–145; BP diastolic 62–80; PULSE 68–108; RESP 13–20; TEMP 36.1–37.1; O2SAT 90–99; BMI 39.6
[2025-03-25 00:05] LABS: Reflex Lactate? Y
[2025-03-25 00:14] LABS: Bacteria RARE /hpf (None Seen); Calcium Oxalate Crystals Ur 2+ /hpf (<or=2+); Hyaline Cast 0-5 SEEN /lpf (0-5)
--- NOTE | 2025-03-25 00:14 | PCM.HP.STD ---
HPI - General General Date of Admission: 03/25/25 Date of Service: 03/25/25 Chief Complaint: N/V/D HPI Narrative The patient is a 50 y/o M w/ PMHx: Morbid obesity, Diabetes mellitus type II, Obesity, HTN, HLD, Gout, MIKKI who presents to the [facility] ED on 03/24/25 with history of generalized fatigue, malaise ongoing over the last 2 to 3 days with diarrhea starting on Thursday night with onset of multiple episodes since addition to nausea and emesis then with onset of lightheadedness and dizziness in addition to development of erythematous rash that is pruritic with no current antibiotic therapy primarily to his abdomen, back and lower extremities not improving prompting eventual ED evaluation to be cautious. Workup in the ED included T97.6, heart 117, BP 93/80, respiratory rate 18, 96% on room air with most recent repeat vitals T98.6 Oral, heart rate 104, BP 101/56 with MAP of 71, respiratory rate 19, 93% on room air, CBC with WBC 21.2, hemoglobin 18.7, platelet 454 with left shift, CMP with sodium 130, chloride 97, 13.4, anion gap 19, BUN/creatinine 26/1.56, GFR 54, glucose 391, lactic acid 5.9, hepatic profile with T. bili 0.31 otherwise unremarkable, lipase mildly elevated 140, CT abdomen pelvis with small esophageal Heda hernia, hepatomegaly with fatty infiltration, fecal retention in the colon consistent with constipation, umbilical hernia containing fat, no obstructive uropathy, degenerative changes of the lumbar spine, EKG with sinus rhythm with no acute evidence of ischemia, urinalysis with protein 100, glucose of thousand, ketone 5, negative nitrite, negative leukocyte esterase. In the ED patient initiated on septic 30 cc/kg IV fluid bolus protocol with 2000 cc administered in addition to Solu-Medrol 125 mg IV x 1, Zofran 4 mg IV x 1. Discussed with ED physician that order for hospitalist was placed for beta-hydroxybutyrate acid to assure no DKA evidence. [facility] Medical History Morbid obesity Gout HLD (hyperlipidemia) HTN (hypertension) MIKKI (obstructive sleep apnea) Diabetes Deviated nasal septum Nasal turbinate hypertrophy Home Medications ?Medication ?Instructions ?Recorded ?Last Taken ?Type allopurinol 300 mg tablet 300 mg PO DAILY 12/28/18 03/23/25 History atorvastatin 40 mg tablet 40 mg PO QHS 12/28/18 03/23/25 History lisinopril 20 mg tablet 20 mg PO QHS 12/28/18 03/23/25 History metformin 500 mg tablet 750 mg PO DAILY 12/28/18 03/23/25 History glipizide 10 mg tablet, extended 10 mg PO QPM 03/24/25 03/23/25 History release 24 hr phentermine 37.5 mg tablet 37.5 mg PO DAILY 03/24/25 03/23/25 History topiramate 50 mg tablet 50 mg PO QHS 03/24/25 03/23/25 History Allergy/AdvReac Type Severity Reaction Status Date / Time No Known Allergies Allergy Verified 03/24/25 18:57 Family History (Updated 03/25/25 @ 01:[address] Sridevi Dillon MD) Father Cancer prostate CVA (cerebral vascular accident) Diabetes Mother No problems noted. Surgical History History of appendectomy History of rhinoplasty Social History (Updated 03/25/25 @ 01:[address] Sridevi Dillon MD) household members: spouse Smoking Status: Never smoker second hand exposure: No alcohol intake: never substance use type: does not use ROS ROS Narrative Admission Review of Systems: CONSTITUTIONAL: No weight loss, fever, chills, + weakness or fatigue. HEENT: + Lightheadedness, dizziness. Eyes: No visual loss, blurred vision, double vision or yellow sclerae. Ears, Nose, Throat: No hearing loss, sneezing, congestion, runny nose or sore throat. SKIN: + Significant rash onset primarily to the lower abdomen, back and bilateral lower extremity noted to be pruritic. CARDIOVASCULAR: No chest pain, chest pressure or chest discomfort, palpitations, edema, orthopnea, syncopal events. RESPIRATORY: No shortness of breath, cough or sputum, wheezing, hemoptysis. GASTROINTESTINAL: + Lack of appetite/anorexia, loose stools/diarrhea, nausea, emesis. No abdominal pain, melena, BRBPR. GENITOURINARY: No dysuria, frequency, urgency or retention. NEUROLOGICAL: + Lightheadedness, dizziness. No headache, syncope, paralysis, ataxia, numbness or tingling in the extremities, focal weakness, change in bowel or bladder control, seizure. MUSCULOSKELETAL: + muscle, back pain, joint pain or stiffness. HEMATOLOGIC: No anemia, bleeding or bruising. LYMPHATICS: No enlarged nodes. No history of splenectomy. PSYCHIATRIC: No history of depression or anxiety. ENDOCRINOLOGIC: No reports of sweating, cold or heat intolerance. No polyuria or polydipsia. ALLERGIES: No history of asthma, hives, eczema or rhinitis. Vital Signs Vital Signs Vital Signs: 03/24/25 18:57 03/24/25 19:28 03/24/25 20:56 Temperature 97.6 F L Temperature Source Oral Pulse Rate 117 H 103 H Respiratory Rate 18 Respiratory Effort Normal Non-Labored Respiratory Pattern Normal Blood Pressure 93/80 113/74 Blood Pressure Mean 84 87 Pulse Ox 96 93 Oxygen Delivery Method Room Air Room Air 03/24/25 22:00 03/24/25 22:20 03/24/25 23:08 Temperature 98.6 F 98.6 F 98.6 F Temperature Source Oral Oral Pulse Rate 103 H 104 H 104 H Respiratory Rate 19 H 16 Respiratory Effort Respiratory Pattern Blood Pressure 113/74 101/56 L 101/56 L Blood Pressure Mean 87 71 71 Pulse Ox 93 93 93 Oxygen Delivery Method Room Air Room Air 03/24/25 23:20 03/25/25 00:00 Temperature 98.6 F Temperature Source Oral Pulse Rate 100 103 H Respiratory Rate 16 Respiratory Effort Respiratory Pattern Blood Pressure 116/67 114/76 Blood Pressure Mean 83 88 Pulse Ox 94 94 Oxygen Delivery Method Room Air Room Air Weight Weight: 270 lb Body Mass Index (BMI) 39.9 Physical Exam Narrative Physical Examination: General: Awake, alert, oriented x 3 and cooperative, seated upright in the ED bed, notes feeling significantly improved since initial ED arrival. Skin: Normal color, normal turgor, no icterus, no cyanosis except occasional stage ecchymoses, abrasion and notable bilateral lower extremity primarily petechial rash, mildly blanching, and raised. HEENT: AT/NC, EOMI although he does have amblyopia present, PERRLA, moderately dry MM, no carotid bruits, difficult to discern JVD given thickened neck. Lungs: Mildly diminished, greater bases, poor effort, no evidence of distress, no rales, ronchi or wheezing. Heart: Regular rate and rhythm; no gallop, rub audible. Abdomen: Soft, morbidly obese, NTTP, mildly hyperactive bowel sounds, difficult to discern distention and HSM given habitus but no tympany noted. Extremities: No cyanosis, no clubbing, mild bilateral ankle nonpitting edema, see skin. Neurological: Patient awake, alert, oriented as noted, cognitive function intact; pupils equally reactive to light and accommodation, cranial nerves grossly normal, moving all 4 extremities, no focal deficits, strength moderately to severely globally decreased. Psychiatric: Affect appears flat, fatigued, no acute evidence of depressive or anxiety feelings. Results Lab / Micro Data 03/24/25 19:53 03/24/25 19:53 Labs: Laboratory Results - last 24 hr 03/24/25 19:53: WBC 21.2 H, RBC 6.67 H, Hgb 18.7 H*, Hct 56.3 H, MCV 84.4, MCH 28.0, MCHC 33.2, RDW Std Deviation 42.7, RDW Coeff of Hero 14.6, Plt Count 454 H, MPV 10.0, Immature Gran % (Auto) 1.400 H, Neut % (Auto) 70.6 H, Lymph % (Auto) 19.5, [place] % (Auto) 5.6, Eos % (Auto) 2.0, Baso % (Auto) 0.9, Absolute Neuts (auto) 15.0 H, Absolute Lymphs (auto) 4.14, Nucleated RBC % 0, Sodium 130 L, Potassium 3.7, Chloride 97 L, Carbon Dioxide 13.4 L, Anion Gap 19 H, BUN 26 H, Creatinine 1.56 H, Estim Creat Clear Calc 74.06, Est GFR (MDRD) Non-Af 54 L, BUN/Creatinine Ratio 16.3, Glucose 391 H, Lactic Acid 5.9 H*, Calcium 9.4, Total Bilirubin 1.02, Direct Bilirubin 0.31 H, AST 23, ALT 27, Alkaline Phosphatase 110, Total Protein 7.6, Albumin 4.5, Globulin 3.0, Lipase 140 H 03/24/25 23:10: Urine Color Yellow, Urine Clarity Clear, Urine pH 5.0, Ur Specific [place] 1.010, Urine Protein 100 H, Urine Glucose (UA) 1000 H, Urine Ketones 5 H, Urine Occult Blood Negative, Urine Nitrite Negative, Urine Bilirubin Negative, Urine Urobilinogen Normal, Ur Leukocyte Esterase Negative, Urine RBC 0 SEEN, Urine WBC 0 SEEN, Ur Squamous Epith Cells 0 SEEN, Calcium Oxalate Crystal 2+, Urine Bacteria RARE, Hyaline Casts 0-5 SEEN, Urine Mucus 0 SEEN Rhythm Strip Rhythm Strip: Sinus Rhythm Rate: 88 Ectopy: None Imaging Radiology Impression Abdomen/Pelvis CT 03/24/25 22:25 IMPRESSION: 1. Small esophageal hiatal hernia. 2. Hepatomegaly with fatty infiltration. 3. Fecal retention in the colon consistent with constipation. 4. Umbilical hernia containing fat. 5. No obstructive uropathy. 6. Degenerative changes lumbar spine as described. Reading Location: [facility] Assessment & Plan Assessment/Plan (1) Acute kidney injury: (2) Diarrhea: PLAN: Plan The patient is a 50 y/o M w/ PMHx: Morbid obesity, Diabetes mellitus type II, Obesity, HTN, HLD, Gout, MIKKI who presents to the [facility] ED on 03/24/25 with history of generalized fatigue, malaise ongoing over the last 2 to 3 days with diarrhea starting on Thursday night with onset of multiple episodes since addition to nausea and emesis then with onset of lightheadedness and dizziness in addition to development of erythematous rash that is pruritic with no current antibiotic therapy primarily to his abdomen, back and lower extremities not improving prompting eventual ED evaluation to be cautious. #1. SIRS with unclear exact etiology primarily suspected secondary to severity of dehydration of note with persistent significant diarrhea, fatigue and malaise with erythematous rash suspected secondary to possible acute gastroenteritis with significant leukocytosis suspected secondary to dehydration as well as lactic acidosis associate with dehydration: Will admit to PCU, will continue aggressive hydration, will obtain C. difficile and enteric pathogen, procalcitonin requested, will trend lactic acid per facility protocol, will allow clear liquids until clinically improving maintain IV PPI, already received IV Solu-Medrol in the ED for rash present, as noted given hyperglycemia, lactic acidosis and mild anion gap elevation requested beta hydroxybutyrate acid to ensure no DKA evident, will continue to monitor erythematous rash, will maintain on fall precautions, if enteric/c-diff negative will have loperamide that may be used. #2. Acute kidney injury: Secondary to acute presentation as noted with GI losses. Admission BUN/Cr 26/1.56, GFR 54, prior baseline creatinine noted to be 0.8. Will continue to aggressively hydrate, hold nephrotoxic medications and repeat chemistry in AM. #3. Hyponatremia, hypochloremia, suspected hypovolemic etiology especially with acute presentation #1: Admission CMP with sodium 130, chloride 97, will continue to aggressively hydrate and repeat CMP in AM. #4. Diabetes mellitus type II with hyperglycemia: Given lactic acidosis and elevated anion gap to be cautious will obtain hydroxybutyrate level to assure no DKA, in the interim will hold oral home regimen, hemoglobin A1c requested, holding oral regimen, given current presentation maintain n.p.o. status with continued accu checks w/ ISS. #5. Hypertension: Will temporally hold home lisinopril regimen given CELIA, will have as needed IV hydralazine in the interim however BP is on low normal and at this point given presentation #1. #6. Hyperlipidemia: Will continue patient on statin therapy. #7. Gout: Will continue patient on allopurinol regimen. #8. Morbid Obesity: Weight loss and lifestyle changes encouraged. #9. MIKKI: Patient denies using PAP therapy as he was not able to tolerate in the past. #10. DVT prophylaxis: Lovenox. #11. CODE status: Patient HCPOA and living will are not in place but he notes his will be his medical decision-maker if necessary. Discussed CODE status at length including difference between FULL code, DNR-CCA and DNR-CC status. Following discussions about the differences in these status, requested Full Code status. Charges/Coding Visit Charges Inpatient E&M: 77149 Init Hosp L3
--- OUTSIDE RECORDS SUMMARY | 2025-03-25 00:43 | XMS RPT_ITS | CCD ---
Author Organization [facility] Care Team Providers Care Customer Success Advocate Name Role Phone Jus CHISHOLM Ean L Primary Care Provider [phone] MARGARET FOFANA Referring Unavailable LUU, EAN L Primary Care Unavailable LUU, EAN L Primary Care Unavailable REBA VAUGHAN Referring Unavailable Luu DO Ean Francheska Primary Care Provider Jus CHISHOLM Ean Francheska Primary Care Provider Deepak GI TECHNICIAN.[place]enn [place] Unavailable Otoniel GI TECHNICIAN.Alli [place] Unavailable EAN LUU Attending Unavailable LUU, [...] Hendricks Attending Unavailable Raji Hendricks Referring Unavailable LuuEan Primary Care Unavailable Ean Luu Primary Care Unavailable Raji Hendricks Attending Unavailable LuuEan Referring Unavailable Pedro STUARTNPrerna LOWRY Unavailable [phone] Allergies Allergy Classification Reported Allergen(s) Allergy Type Date of Onset Reaction(s) Facility (12 sources) Phentermine; Translations: [PHENTERMINE] Drug Allergy 03-25-2024 Other: See Comments [facility] Medications Current Medications Medication Drug Class(es) [...] source) Penicillin-class Antibacterial Start: 05-17-20 End: 05-27-20 take 1 tablet by mouth twice daily [...] monitoring kit (1 source) Start: 4 End: 4 Blood-Glucose Meter monitoring kit Indications: Uncontrolled type [...] supper isopropyl alcohol 0.7 ml/ml medicated pad (12 sources) Start: 03-07-20 24 alcohol swabs Indications: [...] 2 tablets with supper. ONETOUCH ULTRA2 METER (10 sources) Start: 03-20-2024 ONETOUCH ULTRA2 METER 1 [...] 10 days. topiramate 50 mg oral tablet (7 sources) Start: 05-17-2024 End: 12-06-2024 take 1 [...] Start: 06-26-2021 take 1 capsule by mo [facility] once daily Cholecalciferol, Vitamin D3, 125 mcg (5,000 unit) cap Take 1 capsule by mouth once daily. 30 capsule 11 06/26/2021 Active Comment on above: Take 1 capsule by mo [facility] once daily. CPAP/BIPAP/OTHER (20 sources) Start: 02-25-2023 [...] gear, humidity, tubing, lifetime supplies. G47.33 [facility] [id number] dapagliflozin 10 mg oral tablet (20 sources) [...] gel (20 sources) Nonsteroidal Anti-inflammatory Drug Start: 021 End: diclofenac (VOLTAREN ARTHRITIS PAIN) 1 % [...] (9 sources) Phosphodiesterase 5 Inhibitor Start: End: Vardenafil HCl 20 mg tablet Take 0.5-1 tablets by mouth as needed (erectile dysfunction). 30 tablet 2 04/02/2022 10/30/2022 Discontinued Comment on above: Take 0.5-1 tablets b y mouth as needed (erectile dysfunction). Vitamin B Complex (20 sources) Start: End: take 1 tablet by mouth [...] [Anxiety disorder, unspecified] Onset: 12-19-2009 12-19-2009 Chronic Cardiac dysrhythmias (1 source) Tachycardia; Translations: [Tachycardia, unspecified] 03-24-2025 Episodic Diabetes mellitus with complications (20 sources) Type [...] D deficiency, unspecified] Onset: 07-09-2022 Chronic Other circulatory disease (1 source) Low blood pressure; Translations: [Hypotension, unspecified] 03-24-2025 Episodic Other male genital disorders (20 sources) Secondary [...] Onset: 01-07-2023 01-07-2023 Episodic Other eye disorders (8 sources) Ptosis of left eyelid; Translations: [Unspecified [...] nutritional; endocrine; and metabolic disorders (20 sources) Metabolic syndrome X; Translations: [Dysmetabolic syndrome [...] Resolved: 11-27-2016 11-27-2016 Episodic Other skin disorders (20 sources) Skin tag; Translations: [Other hypertrophic disorders of the skin] Onset: 01-25-2016 Resolved: 11-27-2016 11-27-2016 Episodic Other skin disorders (17 sources) Infection of sebaceous cyst; Translations: [Sebaceous [...] Test Name Value Interpretation Reference Range Facility [facility] 12-06-2024 CNOV Office Visit (FAMPWS ) ROE INTERIANO ([id number]) 1975 M Date Time Provider Department 12/06/24 2:40 PM [facility] your visit today, we recorded the following information about you: Temperature Pulse Respiration Blood pressure 96.4 degrees 80/minute 16/minute 126/68 Weight 123.8 kg Ean Luu, 12/06/2024 5:09 PM Signed Patient presents with: [...] No famotidi (more content not included)... Normal [facility] Virtual Office Visiton 10-24 Virtual Office Visit [facility] [address] [place] [address] OFFICE VISIT Date of Service: 10/24/24 MR#: [id number] Acct: [id number] Patient: ROE INTERIANO Rep #: [id number] : 1975 Provider: VIDA Vela Age/Sex: 49/M Location: [facility] Status: Signed Intake Vital Signs 10/10/24 09:54 Height 5 ft 9 in Weight: 276 lb 4 oz BMI 40.8 BP 120/78 Position Sitting Pulse 81 Pulse Oximetry (%) 98 Oxygen Delivery Method room air Intake Visit Reasons: 2 W FU/ECHO WELD Chief Complaint: WC new, right rib injury Allergies No Known Allergies Allergy (Verified 10/10/24 09:57) [facility] Medical History (Updated 10/05/24 @ 12:51 by [...] video. Coding Level of Care Code Attention Kanwal Diagnoses Contusion of right chest wall S20.211A Comment 25071 Assessment and Plan Assessment and Plan (1) Contusion of right chest wall: Status: Acute Plan: Released without restrictions at this time as noted on today's [employer] 14. Follow-up with [facility] on an as-needed basis only. Patient states acknowledging understanding all the above. This note was generated with [employer] dictation software. It may contain incorrect words, spelling, and punctuation that were not noted in checking the note before signing. 10/24/24 0937 Date Raji Han Signature: Date (if applicable) CC: Normal [facility] Urgent Care Visit Reporton 0 10-10-2024 Urgent Care Visit Report [facility] [address], [address] [place] [address] OFFICE VISIT Date of Service: 10/10/24 MR#: [id number] Acct: [id number] Name: ROE INTERIANO Rep #: [id number] : 1975 Provider: VIDA Vela Age/Sex: 49/M Location: [facility] Status: Signed Intake Vital Signs 10/05/24 12:14 [...] air Intake Visit Reasons: 1 W FU/ECHO ÁNGELA Chief Complaint: WC new, right rib injury [...] PO DAILY 12/28/18 10/10/24 History Nurse's Note: [facility] follow up. [facility] Medical History (Updated 10/05/24 @ 12:51 by VIDA Enamorado) Contusion of right chest wall Diabetes Deviated [...] including no head or neck complaints. No iipo-anb-lcwbgow products taken to assist. No other associated symptoms and no other alleviating/aggravating factors. ROS Const Constitutional: No other (As above) Exam Const General: cooperative, healthy appearing and no acute distress Orientation: alert and awake [facility] Head: normal to inspection Ears: external ears [...] work without restrictions as noted on today's [employer] 14. Supportive measures including 6 inch Elton [...] acknowledging unders (more content not included)... Normal [facility] Ribs Adilson Min 4V w/PA Cheston 10-05-2024 Ribs Adilson Min 4V w/PA Chest [facility] [address] [place] [address] Ribs Adilson Min 4V w/PA Chest MR#: [id number] Acct: [id number] Name: ROE INTERIANO Rep #: [id number] : 1975 49 From: Osbaldo canela MD PCP: Dr. Ean Luu, DO Status: REG CLI Study: Ribs Adilson Min 4V w/PA Chest Date of Exam: 10/05 Exam# [id number] Ordering Dr: Raji Alvarez PA :[id number] STUDY: X-RAY - BILATERAL RIBS WITH CHEST [...] 13:03 EST , CC: Dr. Ean Luu, DO; VIDA Vela Chemical Instrumentation Officer: Signed Normal [facility] Urgent Care Visit Reporton 0 10-05-2024 Urgent Care Visit Report [facility] [address], [address] [place], [place] [address] OFFICE VISIT Date of Service: 10/05/24 MR#: [id number] Acct: [id number] Name: ROE INTERIANO Rep #: [id number] : 1975 Provider: VIDA Vela Age/Sex: 49/M Location: [facility] Status: Signed Intake Vital Signs 10/03/19 08:07 [...] Chief Complaint: WC new, right rib injury Cast Associate Required: No Is patient in pain?: Yes [...] you fallen in the past year?: Yes [facility] Medical History (Updated 10/05/24 @ 12:51 by [...] including no head or neck complaints. No oebv-aha-zzjphey products taken to assist. No other associated symptoms and no other alleviating/aggravating factors. ROS Const Constitutional: No other (As above) Exam Const General: cooperative, healthy appearing and no acute distress Orientation: alert and awake [facility] Head: normal to inspection Ears: external ears [...] restrictions effective 10/06/2024 as noted on today's [employer] 14. Supportive measures including 6 inch Elton wrap to use as swath over chest, and cough/deep breathing exercises as instructed today. Follow-up with the [facility] in approximately 5 days for reassessment and continuation of care, sooner should symptoms only w (more content not included)... 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 Mr. Interiano has past history [...] ONETOUCH ULTRA2 (more content not included)... Normal [facility] CNOVon 05-17-2024 CNOV Office Visit (FAMPWS ) ROE INTERIANO ([id number]) 1975 M Date Time Provider Department 05/17/24 3:20 PM EAN LUU During your visit today, we recorded the following information about you: Temperature Pulse Respiration Blood pressure 97.8 degrees 80/minute 20/minute 140/82 Weight 122 kg Ean Luu, DO 05/19/2024 12:33 PM Signed Patient presents [...] up appt for surgical consideration yet with Knitting Teacher ERECTILE DYSFUNCTION, has been tried on multple different medications without a lot of benefit. Was seen by Security Controls Assessor for opinion for testosterone replacement, not interested [...] needed. Ruslan (more content not included)... Normal [facility] ALBUMIN/CREATININE RATIO, UR INEon 05-06-2024 Albumin DL <= 20 mg/L (U) [Mass/Vol] 14.8 mg/L Normal [facility] Comment on above: Order Comment: Speci men Type: URINE SPECIMENOrdering Facility: [facility] Address: [address] [place] [address] Performed By: #### U ACR ####[facility] LABCLIA [id number] [place] [address] [place] Albumin/Creatinine (U) [Mass ratio] 15 mg/g Normal <30 [facility] Comment on above: Order Comment: Speci men Type: URINE SPECIMENOrdering Facility: [facility] Address: [address] [place] [address] Result Comment: Adul t Male and Female Nephrotic Criteria: <30 mg/g is considered normal to mildly increased 30-300 mg/g is considered moderately increased >300 mg/g is considered severely increased KDIGO. (2013). KDIGO 2012 Clinical Practice Guideline for the Evaluation and Management of Chronic Kidney Disease. Official Journal of the International Society of Nephrology, 3(1), 1-150. Performed By: #### U ACR ####[facility] LABCLIA [id number] [place] [id number] [place] Creatinine (U) [Mass/Vol] 100.3 mg/dL Normal 20.0-300.0 [facility] Comment on above: Order Comment: Speci men Type: URINE SPECIMENOrdering Facility: [facility] Address: [address] [place] [address] Performed By: #### U ACR ####[facility] LABCLIA [id number] [place] [address] [place] Comprehensive metabolic 2000 panelon 05-06-2024 Albumin [Mass/Vol] 4.2 g/dL Normal 3.9-4.9 [facility] Comment on above: Order Comment: Speci men Type: BLOOD SPECIMENOrdering Facility: [facility] Address: [address] [place] [address] Performed By: #### 2 4323-8 ####[facility] BETSEY MILLTOWNCLIA [id number] [place] [address] [place] ALP [Catalytic activity/Vol] 73 U/L Normal 38-113 [facility] Comment on above: Order Comment: Speci men Type: BLOOD SPECIMENOrdering Facility: [facility] Address: [address] [place] [address] Performed By: #### 2 4323-8 ####[facility] BETSEY MILLTOWNCLIA [id number] [place] [address] [place] ALT [Catalytic activity/Vol] 20 U/L Normal 10-54 [facility] Comment on above: Order Comment: Speci men Type: BLOOD SPECIMENOrdering Facility: [facility] Address: [address] [place] [address] Performed By: #### 2 4323-8 ####[facility] BETSEY MILLTOWNCLIA [id number] [place] [address] [place] Anion gap [Moles/Vol] 12 mmol/L Normal 8-15 [facility] Comment on above: Order Comment: Speci men Type: BLOOD SPECIMENOrdering Facility: [facility] Address: [address] [place] [address] Performed By: #### 2 4323-8 ####[facility] RODERICKLIA [id number] [place] [address] [place] AST [Catalytic activity/Vol] 16 U/L Normal 14-40 [facility] Comment on above: Order Comment: Speci men Type: BLOOD SPECIMENOrdering Facility: [facility] Address: [address] [place] [address] Performed By: #### 2 4323-8 ####[facility] REJIHOLLY SPRINGSFRANKLIA [id number] [place] [address] [place] Bilirubin [Mass/Vol] 0.9 mg/dL Normal 0.2-1.3 [facility] Comment on above: Order Comment: Speci men Type: BLOOD SPECIMENOrdering Facility: [facility] Address: [address] [place] [address] Performed By: #### 2 4323-8 ####[facility] REJIHOLLY SPRINGSFRANKLIA [id number] [place] [address] [place] Calcium [Mass/Vol] 9.8 mg/dL Normal 8.5-10.2 [facility] Comment on above: Order Comment: Speci men Type: BLOOD SPECIMENOrdering Facility: [facility] Address: [address] [place] [address] Performed By: #### 2 4323-8 ####[facility] [id number] [place] [address] [place] Chloride [Moles/Vol] 106 mmol/L Normal 98-107 [facility] Comment on above: Order Comment: Speci men Type: BLOOD SPECIMENOrdering Facility: [facility] Address: [address] [place] [address] Performed By: #### 2 4323-8 ####[facility] EASTWNCLIA [id number] [place] [address] [place] CO2 [Moles/Vol] 21 mmol/L Low 22-30 [facility] Comment on above: Order Comment: Speci men Type: BLOOD SPECIMENOrdering Facility: [facility] Address: [address] [place] [address] Performed By: #### 2 4323-8 ####[facility] HOSPITALLIA [id number] [place] [address] [place] Creatinine [Mass/Vol] 0.65 mg/dL Low 0.73-1.22 [facility] Comment on above: Order Comment: Speci men Type: BLOOD SPECIMENOrdering Facility: [facility] Address: [address] [place] [address] Performed By: #### 2 4323-8 ####[facility] [id number] [place] [address] [place] Creatinine and Glomerular filtration rate.predicted panel (S/P/Bld) 116 mL/min/1.73m??? Normal >=60 [facility] Comment on above: Order Comment: Speci men Type: BLOOD SPECIMENOrdering Facility: [facility] Address: [address] [place] [address] Result Comment: Celeste mated Glomerular Filtration Rate [...] actual GFR. Performed By: #### 2 4323-8 ####[facility] EASTWNCLIA [id number] [place] [address] [place] Glucose [Mass/Vol] 137 mg/dL High 74-99 [facility] Comment on above: Order Comment: Speci men Type: BLOOD SPECIMENOrdering Facility: [facility] Address: [address] [place] [address] Result Comment: The [place] Diabetes Association (ADA) provides guidance for cutoff [...] Standards of Medical Care in Diabetes 2016, [place] Diabetes Association. Diabetes Care. 2016.39(Suppl 1). Performed By: #### 2 4323-8 ####[facility] [id number] [place] [address] [place] Potassium [Moles/Vol] 4.3 mmol/L Normal 3.7-5.1 [facility] Comment on above: Order Comment: Rafiai men Type: BLOOD SPECIMENOrdering Facility: [facility] Address: [address] [place] [address] Performed By: #### 2 4323-8 ####[facility]ERNCLI [id number] [place] [address] [place] Protein [Mass/Vol] 6.7 g/dL Normal 6.3-8.0 [facility] Comment on above: Order Comment: Rachel mejia Type: BLOOD SPECIMENOrdering Facility: [facility] Address: [address] [place] [address] Performed By: #### 2 4323-8 ####[facility]CLIA [id number] [place] [address] [place] Sodium [Moles/Vol] 139 mmol/L Normal 136-144 [facility] Comment on above: Order Comment: Speci men Type: BLOOD SPECIMENOrdering Facility: [facility] Address: [address] [place] [address] Performed By: #### 2 4323-8 ####[facility] REJIPARVIZ [id number] [place] [address] [place] Urea nitrogen [Mass/Vol] 14 mg/dL Normal 9-24 [facility] Comment on above: Order Comment: Rafiai men Type: BLOOD SPECIMENOrdering Facility: [facility] Address: [address] [place] [address] Performed By: #### 2 4323-8 ####[facility]ENTERNCRELL [id number] [place] [address] [place] HbA1c (Bld)on 05-06-2024 Average glucose Estimated from glycated hemoglobin (Bld) [Mass/Vol] 151 mg/dL Normal [facility] Comment on above: Order Comment: Rachel men Type: BLOOD SPECIMENOrdering Facility: [facility] Address: [address] [place] [address] Result Comment: eAG: (Estimated average glucose) is a calculated value from HgbA1c and is contracts representative of the average blood glucose level in the last 2-3 month period. Performed By: #### 5 5454-3 ####[facility] LABCLIA [id number] [place] [address] [place] HbA1c (Bld) [Mass fraction] 6.9 % High 4.3-5.6 [facility] Comment on above: Order Comment: Rachel [facility] Type: BLOOD SPECIMENOrdering Facility: [facility] Address: [address] [place] [address] Result Comment: Amer ican Diabetes Association guidelines indicate that patients with HgbA1c in the range 5.7-6.4% are at increased risk for development of diabetes, and intervention by lifestyle modification may be beneficial. HgbA1c greater or equal to 6.5% is considered diagnostic of diabetes. Performed By: #### 5 5454-3 ####[facility] LABCLIA [id number] [place] [address] [place] Lipid 1996 panelon 4 Cholesterol [Mass/Vol] 114 mg/dL Normal <200 [facility] Comment on above: Order Comment: Speci men Type: BLOOD SPECIMENOrdering Facility: [facility] Address: [address] [place] [address] Result Comment: <200 mg/dL, Desirable 200-239 mg/dL, Borderline high >239 mg/dL, High Performed By: #### 3 016-3 ####[facility] LABCLIA [id number] [place] [address] [place]#### 97445-2 ####[facility] LABCLIA [id number] [address] STATES OF [facility] [id number] [place] [address] [place] Cholesterol in HDL [Mass/Vol] 28 mg/dL Low >39 [facility] Comment on above: Order Comment: Speci men Type: BLOOD SPECIMENOrdering Facility: [facility] Address: [address] [place] [address] Result Comment: 40-5 9 mg/dL, Acceptable >59 mg/dL, High: Negative risk factor for coronary heart disease <40 mg/dL, Low: Positive risk factor for coronary heart disease Performed By: #### 3 016-3 ####[facility] LABCLIA [id number] [place] [address] [place]#### 12351-5 ####[facility] LABCLIA [id number] [address] STATES OF AMERICAWESTERN RESERVE HOSPITALLIA [id number] [place] [address] [place] Cholesterol in LDL [Mass/Vol] 37 mg/dL Normal <100 [facility] Comment on above: Order Comment: Speci men Type: BLOOD SPECIMENOrdering Facility: [facility] Address: [address] [place] [address] Result Comment: <100 mg/dL, Optimal 100-129 mg/dL, Near optimal/above optimal 130-159 mg/dL, Borderline high 160-189 mg/dL, High >189 mg/dL, Very high Secondary prevention optimal LDL Cholesterol levels are recommended to be < 70 mg/dL Performed By: #### 3 016-3 ####[facility] LABCLIA [id number] [address]#### 54624-8 ####[facility] LABCLIA [id number] [id number] [place] [address] STATES OF [facility] Cholesterol in LDL/Cholesterol in HDL [Mass ratio] 1.32 {ratio} Normal <2.54 [facility] Comment on above: Order Comment: Speci men Type: BLOOD SPECIMENOrdering Facility: [facility] Address: [address] [place] [address] Result Comment: Darcy guaadrrama: 1. National Cholesterol Education Program ATP III Guideline At-A-Glance Quick Desk Reference: National Heart, Lung, and Blood [place]. National Institutes of Health. 2001: NIH Publication No. 01-3305. 2. An International Atherosclerosis Society position paper: global recommendations for the management of dyslipidemia: executive summary, Atherosclerosis. 2014: 232(2):410-413. Performed By: #### 3 016-3 ####[facility] LABCLIA [id number] [address] [place]#### 03310-1 ####[facility] LABCLIA [id number] [address] [id number] [address] [place] Cholesterol in VLDL [Mass/Vol] 49 mg/dL High <30 [facility] Comment on above: Order Comment: Speci men Type: BLOOD SPECIMENOrdering Facility: [facility] Address: [address] [place] [address] Performed By: #### 3 016-3 ####[facility] LABCLIA [id number] [place] [address] [place]#### 31827-9 ####[facility] LABCLIA [id number] [address] STATES OF [facility] [id number] [address] [place] Cholesterol non HDL [Mass/Vol] 86 mg/dL Normal <130 [facility] Comment on above: Order Comment: Speci men Type: BLOOD SPECIMENOrdering Facility: [facility] Address: [address] [place] [address] Result Comment: <130 mg/dL, Optimal 130-159 mg/dL, Near optimal/above optimal 160-189 mg/dL, Borderline high 190-219 mg/dL, High >219 mg/dL, Very high Secondary prevention optimal non HDL Cholesterol levels are recommended to be <100 mg/dL Performed By: #### 3 016-3 ####[facility] LABCLIA [id number] [address] [place]#### 23908-9 ####[facility] LABCLIA [id number] [place] [address] [place] [facility] [id number] [place] [address] [place] Cholesterol.total/ Cholesterol in HDL [Mass ratio] 4.07 {ratio} Normal <5.10 [facility] Comment on above: Order Comment: Speci men Type: BLOOD SPECIMENOrdering Facility: [facility] Address: [address] [place] [address] Performed By: #### 3 016-3 ####[facility] LABCLIA [id number] [place] [address] [place]#### 37993-0 ####[facility] LABCLIA [id number] [place] [address] [facility] [id number] [place] [address] [place] FASTING TIME 12 hrs Normal [facility] Comment on above: Order Comment: Speci men Type: BLOOD SPECIMENOrdering Facility: [facility] Address: [address] [place] [address] Performed By: #### 3 016-3 ####[facility] LABCLIA [id number] [place] [address] [place]#### 03808-7 ####[facility] LABCLIA [id number] [address] STATES [facility] [id number] [place] [address] [place] Triglyceride [Mass/Vol] 247 mg/dL High <150 [facility] Comment on above: Order Comment: Speci men Type: BLOOD SPECIMENOrdering Facility: [facility] Address: [address] [place] [address] Result Comment: <150 mg/dL, Normal 150-199 mg/dL, Borderline high 200-499 mg/dL, High >499 mg/dL, Very high Performed By: #### 3 016-3 ####[facility] LABCLIA [id number] [place] [address] [place]#### 87758-4 ####[facility] LABCLIA [id number] [place] [address] [facility] [id number] [address] [place] TSH SerPl-aCncon 05-06-2024 TSH Qn 1.620 m[IU]/L Normal 0.270-4.200 [facility] Comment on above: Order Comment: Speci men Type: BLOOD SPECIMENOrdering Facility: [facility] Address: [address] [place] [address] Performed By: #### 3 016-3 ####[facility] LABCLIA [id number] [address]#### 78099-0 ####[facility] LABCLIA [id number] [address] [id number] [address] [place] CNPNon 05-02-2024 CNPN Telephone (FAMPWS) ROE INTERIANO ([id number]) 1975 Date Time Provider Department 05/02/24 EAN LUU FAMPWS During your visit today, [...] with ketoacidosis, uncontrolled (HCC) [E11.10] Order(s):HEMOGLOBIN A1C [ZZTQI1F] Order #: [id number] FUTURE LIPID PANEL BASIC [SQLIPB] Order #: [id number] FUTURE COMPREHENSIVE METABOLIC PANEL [SQCMP] Order #: [id number] FUTURE ALBUMIN/CREATININE RATIO, URINE [SQUACR] Order #: [id number] FUTURE THYROID STIMULATING HORMONE [SQTSH] Order #: [id number] FUTURE Prescriptions as of 05/02/2024 - allopurinol [...] diabetes m (more content not included)... Normal [facility] CNOVon 03-25-2024 CNOV Office Visit (ENWSTR ) ROE INTERIANO Lucretia ([id number]) 1975 M Date Time Provider Department 03/25/24 [...] on File Prior to Visit Medication Sig DeepRockDriveTOUCH ULTRA2 METER 1 Each by VIA DEVICE [...] once da (more content not included)... [facility] JAYDONROE ([id number]) 1975 M Date Time Provider Department 03/25/24 EAN LUU During your visit today, we recorded the following information about you: Mag Chambers, RN 03/25/2024 1:48 PM Signed Patient reports he saw the production line technician, and was informed his testosterone numbers are [...] urinating Date Reviewed: 03/25/2024 Reviewed by: Ana Villalta, INO - Fully Assessed Reason for Visit: Patient Update [1234] Prescriptions as of 03/25/2024 - ONETOUCH ULTRA2 METER 1 Each by [...] [L72.9, L08.9] (more content not included)... Normal [facility] CNOVon 03-07-2024 CNOV Office Visit (GENSME ) ROE INTERIANO ([id number]) 1975 M Date Time Provider Department 03/07/24 [...] as n (more content not included)... Normal [facility] CNOVon 02-23-2024 CNOV Office Visit (CURTIS ) ROE INTERIANO ([id number]) 1975 M Date Time Provider Department 02/23/24 [...] as needed (nasal dryness). [facility] Use as instructed blood sugar diagnostic [...] to pro (more content not included)... Normal [facility] CNOVon 02-10-2024 CNOV Office Visit (FAMPWS ) ROE INTERIANO ([id number]) 1975 M Date Time Provider Department 02/10/24 3:20 PM JENN SOTELO [facility] During your visit today, we recorded the following information about you: Pulse Respiration Blood pressure Weight 72/minute 16/minute 124/62 126.9 kg Jenn Sotelo APRN.QUALITY CONTROL ASSISTANT 02/10/2024 4:05 PM Signed Chief Complaint Patient [...] bedtime as (more content not included)... Normal [facility] UA DIP, URINE (POC)on 2023 BILIRUBIN UA (POCT) Negative Negative [facility] CLARITY UA (POCT) Clear [facility] COLOR UA (POCT) Yellow [facility] GLUCOSE UA (POCT) 100 mg/dL Abnormal Negative [facility] Hemoglobin Ql (U) Negative Negative [facility] Interpretation and review of laboratory results Abnormal [facility] KETONE UA (POCT) Negative Negative mg/dL [facility] LEUKOCYTES UA (POCT) Negative Negative [facility] NITRITE UA (POCT) Negative Negative [facility] PH UA (POCT) 5.5 4.5 - 8.0 [facility] Protein Ql (U) Negative Negative mg/dL [facility] SPECIFIC GRAVITY UA (POCT) <=1.005 Abnormal 1.005 - 1.030 [facility] UROBILINOGEN UA (POCT) 0.2 Normal E.U./dL [facility] Location:[facility], [address], [place], [address] [facility] POINT OF CARE [facility] CNPNon 02-03-2024 CNPN Telephone (FAMPWS) ROE INTERIANO ([id number]) 1975 M Date Time Provider Department 02/03/24 [facility] During your visit today, we recorded the following information about you: Ean Luu DO 02/03/2024 10:24 PM Signed Please let him know that his testosterone levels are still low normal. Recommend follow up with Urologist or production line technician for opinion if interested in taking testosterone hormone DO Reena Salinas [place], MA 02/04/2024 9:35 AM Signed Pt informed, verbalized understanding. Please assist with scheduling. Lisa Valles MA Allergies As of Date: 02/03/2024 (No Known Allergies) Date Reviewed: 01/15/2024 Reviewed by: Sarah Lua LPN - Fully Assessed Prescriptions as of 03/30/2024 - ONETOUCH ULTRA2 METER 1 Each by [...] Status:Closed by ALLI MULLEN on 03/30/24 Normal [facility] TESTOSTERONE, FREE AND TOTAL on 01-27-2024 TESTOSTERONE, FREE, S 8.50 ng/dL Normal 4.26-16.4 [facility] Comment on above: Order Comment: Speci men Type: BLOOD SPECIMENOrdering Facility: [facility] Address: [address] [place] [id number] Result Comment: ADDITIONAL INFORMATION This test was developed and its performance characteristics determined by [facility] in a manner consistent with CLIA requirements. This test has not been cleared or approved by the U.S. Food and Drug Administration. Performed By: #### T FTEST ####[facility] LABCLIA [id number] [place] [address] TESTOSTERONE, TOTAL, S 200 ng/dL Low 240-950 [facility] Comment on above: Order Comment: Speci men Type: BLOOD SPECIMENOrdering Facility: [facility] Address: [address] [place], [place] [address] [address] Result Comment: ADDITIONAL INFORMATION Testing performed by Liquid Chromatography-Tandem Mass Spectrometry (LC-MS/MS). This test was developed and its performance characteristics determined by [facility] in a manner consistent with CLIA requirements. This test has not been cleared or approved by the U.S. Food and Drug Administration. Test Performed by: [address] [address] Research And Development Manager: Ulysses Sher M.D. Ph.D.; CLIA# [id number] Performed By: #### T FTEST ####[facility] LABCLIA [id number] [place] [address] Viridiana 01-26-2024 CNPN Telephone (FAMPWS) ROE INTERIANO ([id number]) 1975 Date Time Provider Department 01/26/24 EAN LUU During your visit today, we recorded the following information about you: FideliawilliJoyceVLADIMIR 01/26/2024 9:30 AM Signed Patient calling asking [...] Abs Lymph 1.00 - 4.00 k/uL 1.45 [place]% % 6.3 Abs [place] <0.87 k/uL 0.56 E[place]% % 3.6 Abs [...] AM Signed Noted. Thank you, Jenn Sotelo APRN.QUALITY CONTROL ASSISTANT Allergies As of Date: 01/26/2024 (No Known Allergies) Date Reviewed: 01/15/2024 Reviewed by: Sarah Lua LPN - Fully Assessed Reason for Visit: Results, Lab [1201] Primary Visit Diagnosis:Low testosterone [R79.89] Order(s):TESTOSTERONE, FREE AND TOTAL [SQTFTEST] Order #: [id number] FUTURE Prescriptions as of 01/27/2024 - lisinopril [...] - Cholecalci (more content not included)... Normal [facility] CBC W Auto Differential pane l (Bld)on 01-16-2024 Basophils (Bld) [#/Vol] 0.09 10*3/uL <0.11 k/uL [facility] Basophils/100 WBC (Bld) 1.0 % [facility] Differential cell count method Nom (Bld) Auto [facility] Eosinophils (Bld) [#/Vol] 0.32 10*3/uL <0.46 k/uL [facility] Eosinophils/100 WBC (Bld) 3.6 % [facility] Erythrocyte distribution width (RBC) [Ratio] 14.1 % 11.5 - 15.0 % [facility] Hematocrit (Bld) [Volume fraction] 46.3 % 39.0 - 51.0 % [facility] Hemoglobin (Bld) [Mass/Vol] 15.7 g/dL 13.0 - 17.0 g/dL [facility] Immature granulocytes (Bld) [#/Vol] <0.10 k/uL [facility] Immature granulocytes/100 WBC (Bld) 0.2 % [facility] Lymphocytes (Bld) [#/Vol] 1.45 10*3/uL 1.00 - 4.00 k/uL [facility] Lymphocytes/100 WBC (Bld) 16.2 % [facility] MCH (RBC) [Entitic mass] 27.5 pg 26.0 - 34.0 pg [facility] MCHC (RBC) [Mass/Vol] 33.9 g/dL 30.5 - 36.0 g/dL [facility] MCV (RBC) [Entitic vol] 81.2 fL 80.0 - 100.0 fL [facility] Monocytes (Bld) [#/Vol] 0.56 10*3/uL <0.87 k/uL [facility] Monocytes/100 WBC (Bld) 6.3 % [facility] Neutrophils (Bld) [#/Vol] 6.52 10*3/uL 1.45 - 7.50 k/uL [facility] Neutrophils/100 WBC (Bld) 72.7 % [facility] Nucleated RBC (Bld) [#/Vol] <0.01 k/uL [facility] Nucleated RBC/100 WBC (Bld) [Ratio] 0.0 /100 WBC [facility] Platelet mean volume (Bld) [Entitic vol] 10.4 fL 9.0 - 12.7 fL [facility] Platelets (Bld) [#/Vol] 270 10*3/uL 150 - 400 k/uL [facility] RBC (Bld) [#/Vol] 5.70 10*6/uL 4.20 - 6.0 0 m/uL [facility] WBC (Bld) [#/Vol] 8.96 10*3/uL 3.70 - 11. 00 k/uL [facility] CBC W Auto Differential pane l (Bld)on 01-15-2024 Basophils (Bld) [#/Vol] 0.09 10*3/uL Normal <0.11 [facility] Comment on above: Order Comment: Speci men Type: BLOOD SPECIMENOrdering Facility: [facility] Address: [address] [place] [address] Performed By: #### 5 7021-8 ####[facility] LABCLIA [id number] [place] [address] [place] Basophils/100 WBC (Bld) 1.0 % Normal [facility] Comment on above: Order Comment: Speci men Type: BLOOD SPECIMENOrdering Facility: [facility] Address: [address] [place] [address] Performed By: #### 5 7021-8 ####[facility] LABCLIA [id number] [place] [address] [place] Differential cell count method Nom (Bld) Auto Normal [facility] Comment on above: Order Comment: Speci men Type: BLOOD SPECIMENOrdering Facility: [facility] Address: [address] [place] [address] Performed By: #### 5 7021-8 ####[facility] LABCLIA [id number] [place] [address] [place] Eosinophils (Bld) [#/Vol] 0.32 10*3/uL Normal <0.46 [facility] Comment on above: Order Comment: Speci men Type: BLOOD SPECIMENOrdering Facility: [facility] Address: [address] [place] [address] Performed By: #### 5 7021-8 ####[facility] LABCLIA [id number] [place] [address] [place] Eosinophils/100 WBC (Bld) 3.6 % Normal [facility] Comment on above: Order Comment: Speci men Type: BLOOD SPECIMENOrdering Facility: [facility] Address: [address] [place] [address] Performed By: #### 5 7021-8 ####[facility] LABIA [id number] [place] [address] [place] Erythrocyte distribution width (RBC) [Ratio] 14.1 % Normal 11.5-15.0 [facility] Comment on above: Order Comment: Speci men Type: BLOOD SPECIMENOrdering Facility: [facility] Address: [address] [place] [address] Performed By: #### 5 7021-8 ####[facility] LABIA [id number] [place] [address] [place] Hematocrit (Bld) [Volume fraction] 46.3 % Normal 39.0-51.0 [facility] Comment on above: Order Comment: Speci men Type: BLOOD SPECIMENOrdering Facility: [facility] Address: [address] [place] [address] Performed By: #### 5 7021-8 ####[facility] LABIA [id number] [place] [address] [place] Hemoglobin (Bld) [Mass/Vol] 15.7 g/dL Normal 13.0-17.0 [facility] Comment on above: Order Comment: Speci men Type: BLOOD SPECIMENOrdering Facility: [facility] Address: [address] [place] [address] Performed By: #### 5 7021-8 ####[facility] LABIA [id number] [place] [address] [place] Immature granulocytes (Bld) [#/Vol] 10*3/uL Normal <0.10 [facility] Comment on above: Order Comment: Speci men Type: BLOOD SPECIMENOrdering Facility: [facility] Address: [address] [place] [address] Performed By: #### 5 7021-8 ####[facility] LABCLIA [id number] [place] [address] [place] Immature granulocytes/100 WBC (Bld) 0.2 % Normal [facility] Comment on above: Order Comment: Speci men Type: BLOOD SPECIMENOrdering Facility: [facility] Address: [address] [place] [address] Performed By: #### 5 7021-8 ####[facility] LABCLIA [id number] [place] [address] [place] Lymphocytes (Bld) [#/Vol] 1.45 10*3/uL Normal 1.00-4.00 [facility] Comment on above: Order Comment: Speci men Type: BLOOD SPECIMENOrdering Facility: [facility] Address: [address] [place] [address] Performed By: #### 5 7021-8 ####[facility] LABCLIA [id number] [place] [address] [place] Lymphocytes/100 WBC (Bld) 16.2 % Normal [facility] Comment on above: Order Comment: Speci men Type: BLOOD SPECIMENOrdering Facility: [facility] Address: [address] [place] [address] Performed By: #### 5 7021-8 ####[facility] LABCLIA [id number] [place] [address] [place] MCH (RBC) [Entitic mass] 27.5 pg Normal 26.0-34.0 [facility] Comment on above: Order Comment: Speci men Type: BLOOD SPECIMENOrdering Facility: [facility] Address: [address] [place] [address] Performed By: #### 5 7021-8 ####[facility] LABCLIA [id number] [place] [address] [place] MCHC (RBC) [Mass/Vol] 33.9 g/dL Normal 30.5-36.0 [facility] Comment on above: Order Comment: Speci men Type: BLOOD SPECIMENOrdering Facility: [facility] Address: [address] [place] [address] Performed By: #### 5 7021-8 ####[facility] LABIA [id number] [place] [address] [place] MCV (RBC) [Entitic vol] 81.2 fL Normal 80.0-100.0 [facility] Comment on above: Order Comment: Speci men Type: BLOOD SPECIMENOrdering Facility: [facility] Address: [address] [place] [address] Performed By: #### 5 7021-8 ####[facility] LABIA [id number] [place] [address] [place] Monocytes (Bld) [#/Vol] 0.56 10*3/uL Normal <0.87 [facility] Comment on above: Order Comment: Speci men Type: BLOOD SPECIMENOrdering Facility: [facility] Address: [address] [place] [address] Performed By: #### 5 7021-8 ####[facility] LABIA [id number] [place] [address] [place] Monocytes/100 WBC (Bld) 6.3 % Normal [facility] Comment on above: Order Comment: Speci men Type: BLOOD SPECIMENOrdering Facility: [facility] Address: [address] [place] [address] Performed By: #### 5 7021-8 ####[facility] LABIA [id number] [place] [address] [place] Neutrophils (Bld) [#/Vol] 6.52 10*3/uL Normal 1.45-7.50 [facility] Comment on above: Order Comment: Speci men Type: BLOOD SPECIMENOrdering Facility: [facility] Address: [address] [place] [address] Performed By: #### 5 7021-8 ####[facility] LABCLIA [id number] [place] [address] [place] Neutrophils/100 WBC (Bld) 72.7 % Normal [facility] Comment on above: Order Comment: Speci men Type: BLOOD SPECIMENOrdering Facility: [facility] Address: [address] [place] [address] Performed By: #### 5 7021-8 ####[facility] LABCLIA [id number] [place] [address] [place] Nucleated RBC (Bld) [#/Vol] 10*3/uL Normal <0.01 [facility] Comment on above: Order Comment: Speci men Type: BLOOD SPECIMENOrdering Facility: [facility] Address: [address] [place] [address] Performed By: #### 5 7021-8 ####[facility] LABIA [id number] [place] [address] [place] Nucleated RBC/100 WBC (Bld) [Ratio] 0.0 /100 WBC Normal [facility] Comment on above: Order Comment: Speci men Type: BLOOD SPECIMENOrdering Facility: [facility] Address: [address] [place] [address] Performed By: #### 5 7021-8 ####[facility] LABIA [id number] [place] [address] [place] Platelet mean volume (Bld) [Entitic vol] 10.4 fL Normal 9.0-12.7 [facility] Comment on above: Order Comment: Speci men Type: BLOOD SPECIMENOrdering Facility: [facility] Address: [address] [place] [address] Performed By: #### 5 7021-8 ####[facility] LABIA [id number] [place] [address] [place] Platelets (Bld) [#/Vol] 270 10*3/uL Normal 150-400 [facility] Comment on above: Order Comment: Speci men Type: BLOOD SPECIMENOrdering Facility: [facility] Address: [address] [place] [address] Performed By: #### 5 7021-8 ####[facility] LABCLIA [id number] [place] [address] [place] RBC (Bld) [#/Vol] 5.70 10*6/uL Normal 4.20-6.00 [facility] Comment on above: Order Comment: Speci men Type: BLOOD SPECIMENOrdering Facility: [facility] Address: [address] [place] [address] Performed By: #### 5 7021-8 ####[facility] LABCLIA [id number] [place] [address] [place] WBC (Bld) [#/Vol] 8.96 10*3/uL Normal 3.70-11.00 [facility] Comment on above: Order Comment: Speci men Type: BLOOD SPECIMENOrdering Facility: [facility] Address: [address] [place] [address] Performed By: #### 5 7021-8 ####[facility] LABCLIA [id number] [place] [address] [place] CNOVon 01-15-2024 CNOV Office Visit (FAMPWS ) ROE INTERIANO ([id number]) 1975 M Date Time Provider Department 01/15/24 [...] acid re (more content not included)... Normal [facility] Comprehensive metabolic 2000 panelon 01-15-2024 Albumin [Mass/Vol] 4.4 g/dL Normal 3.9-4.9 [facility] Comment on above: Order Comment: Speci men Type: BLOOD SPECIMENOrdering Facility: [facility] Address: [address] [place] [address] Performed By: #### 2 4323-8, LIPNF ####[facility] LABCLIA [id number] [place] [address] [place] ALP [Catalytic activity/Vol] 117 U/L High 38-113 [facility] Comment on above: Order Comment: Speci men Type: BLOOD SPECIMENOrdering Facility: [facility] Address: [address] [place] [address] Performed By: #### 2 4323-8, LIPNF ####[facility] LABCLIA [id number] [place] [address] [place] ALT [Catalytic activity/Vol] 31 U/L Normal 10-54 [facility] Comment on above: Order Comment: Speci men Type: BLOOD SPECIMENOrdering Facility: [facility] Address: [address] [place] [address] Performed By: #### 2 4323-8, LIPNF ####[facility] LABIA [id number] [place] [address] [place] Anion gap [Moles/Vol] 14 mmol/L Normal 9-18 [facility] Comment on above: Order Comment: Speci men Type: BLOOD SPECIMENOrdering Facility: [facility] Address: [address] [place] [address] Performed By: #### 2 4323-8, LIPNF ####[facility] LABCLIA [id number] [place] [address] [place] AST [Catalytic activity/Vol] 26 U/L Normal 14-40 [facility] Comment on above: Order Comment: Speci men Type: BLOOD SPECIMENOrdering Facility: [facility] Address: [address] [place] [address] Performed By: #### 2 4323-8, LIPNF ####[facility] LABCLIA [id number] [place] [address] [place] Bilirubin [Mass/Vol] 0.8 mg/dL Normal 0.2-1.3 [facility] Comment on above: Order Comment: Speci men Type: BLOOD SPECIMENOrdering Facility: [facility] Address: [address] [place] [address] Performed By: #### 2 4323-8, LIPNF ####[facility] LABCLIA [id number] [place] [address] [place] Calcium [Mass/Vol] 9.9 mg/dL Normal 8.5-10.2 [facility] Comment on above: Order Comment: Speci men Type: BLOOD SPECIMENOrdering Facility: [facility] Address: [address] [place] [address] Performed By: #### 2 4323-8, LIPNF ####[facility] LABCLIA [id number] [place] [address] [place] Chloride [Moles/Vol] 100 mmol/L Normal 97-105 [facility] Comment on above: Order Comment: Speci men Type: BLOOD SPECIMENOrdering Facility: [facility] Address: [address] [place] [address] Performed By: #### 2 4323-8, LIPNF ####[facility] LABCLIA [id number] [place] [address] [place] CO2 [Moles/Vol] 20 mmol/L Low 22-30 [facility] Comment on above: Order Comment: Speci men Type: BLOOD SPECIMENOrdering Facility: [facility] Address: [address] [place] [address] Performed By: #### 2 4323-8, LIPNF ####[facility] LABCLIA [id number] [facility] [place] [address] [place] Creatinine [Mass/Vol] 0.75 mg/dL Normal 0.73-1.22 [facility] Comment on above: Order Comment: Speci men Type: BLOOD SPECIMENOrdering Facility: [facility] Address: [address] [place] [address] Performed By: #### 2 4323-8, LIPNF ####[facility] LABCLIA [id number] [place] [address] [place] Creatinine and Glomerular filtration rate.predicted panel (S/P/Bld) 112 mL/min/1.73m??? Normal >=60 [facility] Comment on above: Order Comment: Speci men Type: BLOOD SPECIMENOrdering Facility: [facility] Address: [address] [place] [address] Result Comment: Celeste mated Glomerular Filtration Rate [...] GFR. Performed By: #### 2 4323-8, LIPNF ####[facility] LABCLIA [id number] [place] [address] [place] Glucose [Mass/Vol] 373 mg/dL High 74-99 [facility] Comment on above: Order Comment: Speci men Type: BLOOD SPECIMENOrdering Facility: [facility] Address: [address] [place] [address] Result Comment: The [place] Diabetes Association (ADA) provides guidance for cutoff [...] Standards of Medical Care in Diabetes 2016, [place] Diabetes Association. Diabetes Care. 2016.39(Suppl 1). Performed By: #### 2 4323-8, LIPNF ####[facility] LABIA [id number] [place] [address] [place] Potassium [Moles/Vol] 4.5 mmol/L Normal 3.7-5.1 [facility] Comment on above: Order Comment: Speci men Type: BLOOD SPECIMENOrdering Facility: [facility] Address: [address] [place] [address] Performed By: #### 2 4323-8, LIPNF ####[facility] [id number] [place] [address] [place] Protein [Mass/Vol] 7.1 g/dL Normal 6.3-8.0 [facility] Comment on above: Order Comment: Speci men Type: BLOOD SPECIMENOrdering Facility: [facility] Address: [address] [place] [address] Performed By: #### 2 4323-8, LIPNF ####[facility] LABIA [id number] [place] [address] [place] Sodium [Moles/Vol] 134 mmol/L Low 136-144 [facility] Comment on above: Order Comment: Speci men Type: BLOOD SPECIMENOrdering Facility: [facility] Address: [address] [place] [address] Performed By: #### 2 4323-8, LIPNF ####[facility] LABCLIA [id number] [place] [address] [place] Urea nitrogen [Mass/Vol] 16 mg/dL Normal 9-24 [facility] Comment on above: Order Comment: Rafiai men Type: BLOOD SPECIMENOrdering Facility: [facility] Address: [address] [place] [address] Performed By: #### 2 4323-8, LIPNF ####[facility] LABCLIA [id number] [place] [address] [place] HbA1c (Bld)on 01-15-2024 Average glucose Estimated from glycated hemoglobin (Bld) [Mass/Vol] 266 mg/dL Normal [facility] Comment on above: Order Comment: Rachel mejia Type: BLOOD SPECIMENOrdering Facility: [facility] Address: [address] [place] [address] Result Comment: eAG: (Estimated average glucose) is a calculated value from HgbA1c and is contracts representative of the average blood glucose level in the last 2-3 month period. Performed By: #### 5 5454-3 ####[facility] LABCLIA [id number] [place] [address] [place] HbA1c (Bld) [Mass fraction] 10.9 % High 4.3-5.6 [facility] Comment on above: Order Comment: Rachel mejia Type: BLOOD SPECIMENOrdering Facility: [facility] Address: [address] [place] [address] Result Comment: Amer [place] Diabetes Association guidelines indicate that patients with HgbA1c in the range 5.7-6.4% are at increased risk for development of diabetes, and intervention by lifestyle modification may be beneficial. HgbA1c greater or equal to 6.5% is considered diagnostic of diabetes. Performed By: #### 5 5454-3 ####[facility] LABCLIA [id number] [place] [address] [place] LIPID PANEL, NONFASTINGon 04 -19-2024 Cholesterol [Mass/Vol] 145 mg/dL Normal <200 [facility] Comment on above: Order Comment: Speci men Type: BLOOD SPECIMENOrdering Facility: [facility] Address: [address] [place] [address] Result Comment: <200 mg/dL, Desirable 200-239 mg/dL, Borderline high >239 mg/dL, High Performed By: #### 2 4323-8, LIPNF ####[facility] LABCLIA [id number] [place] [address] [place] HDL CHOLESTEROL, NF 31 mg/dL Low >39 [facility] Comment on above: Order Comment: Speci men Type: BLOOD SPECIMENOrdering Facility: [facility] Address: [address] [place] [address] Result Comment: 40-5 9 mg/dL, Acceptable >59 mg/dL, High: Negative risk factor for coronary heart disease <40 mg/dL, Low: Positive risk factor for coronary heart disease Performed By: #### 2 4323-8, LIPNF ####[facility] LABCLIA [id number] [place] [address] [place] LDL CHOLESTEROL, NF Normal [facility] Comment on above: Order Comment: Speci men Type: BLOOD SPECIMENOrdering Facility: [facility] Address: [address] [place] [address] Result Comment: Unab le to calculate due to increased Triglycerides. A Direct LDL Cholesterol measurement will not be performed. If clinically indicated, a fasting Basic Lipid Panel (LIPB) may be ordered. Performed By: #### 2 4323-8, LIPNF ####[facility] LABCLIA [id number] [place] [address] [place] LDL/HDL RATIO, NF Normal [facility] Comment on above: Order Comment: Speci men Type: BLOOD SPECIMENOrdering Facility: [facility] Address: [address] [place] [address] Result Comment: Unab le to calculate due to elevated Triglycerides. Reference: 1. National Cholesterol Education Program ATP III Guideline At-A-Glance Quick Desk Reference: National Heart, Lung, and Blood [place]. National Institutes of Health. 2001: NIH Publication No. 01-3305. 2. An International Atherosclerosis Society position paper: global recommendations for the management of dyslipidemia: executive summary, Atherosclerosis. 2014: 232(2):410-413. Performed By: #### 2 4323-8, LIPNF ####[facility] LABCLIA [id number] [place] [address] [place] NON HDL CHOL, NF 114 mg/dL Normal <130 [facility] Comment on above: Order Comment: Speci men Type: BLOOD SPECIMENOrdering Facility: [facility] Address: [address] [place] [address] Result Comment: <130 mg/dL, Optimal 130-159 mg/dL, Near optimal/above optimal 160-189 mg/dL, Borderline high 190-219 mg/dL, High >219 mg/dL, Very high Secondary prevention optimal non HDL Cholesterol levels are recommended to be <100 mg/dL Performed By: #### 2 4323-8, LIPNF ####[facility] LABCLIA [id number] [address] [place] T CHOL/HDL RATIO NF 4.68 mg/dL Normal <5.10 [facility] Comment on above: Order Comment: Rafiai men Type: BLOOD SPECIMENOrdering Facility: [facility] Address: [address] [place] [address] Performed By: #### 2 4323-8, LIPNF ####[facility] LABCLIA [id number] [address] [place] TRIGLYCERIDES, NF 988 mg/dL High <150 [facility] Comment on above: Order Comment: Rafiai men Type: BLOOD SPECIMENOrdering Facility: [facility] Address: [address] [place] [address] Result Comment: <150 mg/dL, Normal 150-199 mg/dL, Borderline high 200-499 mg/dL, High >499 mg/dL, Very high Performed By: #### 2 4323-8, LIPNF ####[facility] LABCLIA [id number] [place] [address] [place] VLDL CHOLESTEROL, NF Normal [facility] Comment on above: Order Comment: Speci men Type: BLOOD SPECIMENOrdering Facility: [facility] Address: [address] [place] [address] Result Comment: Unab le to calculate due to elevated Triglycerides. Performed By: #### 2 4323-8, LIPNF ####[facility] LABCLIA [id number] [place] [address] [place] PSA/PROSTATE SPECIFIC ANTIGE N SCREENINGon 01-15-2024 Prostate specific Ag [Mass/Vol] 0.49 ng/mL Normal <2.60 [facility] Comment on above: Order Comment: Speci men Type: BLOOD SPECIMENOrdering Facility: [facility] Address: [address] [place] [address] Result Comment: Tota l PSA test methodology used is the Electrochemiluminescence Immunoassay by Bob [employer]. Total PSA values by differing methodologies cannot be interchanged. Performed By: #### P SAS1 ####[facility] LABCLIA [id number] [place] [address] [place] TESTOSTERONE, FREE AND TOTAL on 01-15-2024 TESTOSTERONE, FREE, S 4.72 ng/dL Normal 4.26-16.4 [facility] Comment on above: Order Comment: Speci men Type: BLOOD SPECIMENOrdering Facility: [facility] Address: [address] [place] [address] Result Comment: ADDITIONAL INFORMATION This test was developed and its performance characteristics determined by [facility] in a manner consistent with CLIA requirements. This test has not been cleared or approved by the U.S. Food and Drug Administration. Performed By: #### T FTEST ####[facility] LABCLIA [id number] [place] [address] TESTOSTERONE, TOTAL, S 122 ng/dL Low 240-950 [facility] Comment on above: Order Comment: Speci men Type: BLOOD SPECIMENOrdering Facility: [facility] Address: [place] [address] Result Comment: ADDITIONAL INFORMATION Testing performed by Liquid Chromatography-Tandem Mass Spectrometry (LC-MS/MS). This test was developed and its performance characteristics determined by [facility] in a manner consistent with CLIA requirements. This test has not been cleared or approved by the U.S. Food and Drug Administration. Test Performed by: [facility] [address] [place] [address] Research And Development Manager: Ulysses Sher M.D. Ph.D.; CLIA# [id number] Performed By: #### T FTEST ####[facility] LABCLIA [id number] [place] [address] CT CHEST WO IVCONon 11-13-19 [facility] ECG COMPLETEon 10-28-2022 Atrial Rate 74 BPM [facility] Calculated P [place] 30 degrees [facility] Calculated R [place] 19 degrees [facility] Calculated T [place] 28 degrees [facility] P-R Interval 146 ms [facility] QRS Duration 118 ms [facility] QT Interval 410 ms [facility] QTC Calculation (Bazett) 455 ms [facility] Ventricular Rate 74 BPM [facility] ECG COMPLETE Ventricular Rate : 7 4 BPM Atrial Rate : 74 BPM P-R Interval : 146 ms QRS Duration : 118 ms Q-T Interval : 410 ms QTC Calculation(Bazett) : 455 ms Calculated P [place] : 30 degrees Calculated R [place] : 19 degrees Calculated T [place] : 28 degrees NORMAL SINUS RHYTHM NON-SPECIFIC INTRA-VENTRICULAR CONDUCTION DELAY BORDERLINE ECG NO PREVIOUS ECGS AVAILABLE Confirmed by ROE MARIE M.D. ([id number]) on 10/28/2022 4:56:40 PM NAME : JAYDONROE PID : [id number] : 1975 Gender : Male Race : ORD : [id number] Procedure Date : Oct 28 2022 07:57:11 [...] REBA VAUGHAN Acquired by : JENNIFER WARD [facility] ABD RT UPPER QUADRANTon 0 10-27-2022 [facility] XR CHEST 2V FRONTAL/LATon Radiology Result ACTIONABLE Abnormal [facility] HEMOGLOBIN A1C (POC)on 10-01 HbA1c (Bld) [Mass fraction] 9.8 % Abnormal 4.2 - 5.6 % [facility] Vital Signs Date Time Vital Sign Value Performing Clinician Faci lity 03-24-2025 18:28-0400 Body mass index (BMI) [Ratio] 41 kg/m2 Kisha Hill APRN.QUALITY CONTROL ASSISTANT Work Phone: [facility] 03-24-2025 18:28-0400 Body temperature 98.4 [degF] Kisha Hill APRN.QUALITY CONTROL ASSISTANT Work Phone: [facility] 03-24-2025 18:28-0400 Body weight 122.3 kg Kisha Hill APRN.QUALITY CONTROL ASSISTANT Work Phone: [facility] 03-24-2025 18:28-0400 Diastolic blood pressure 60 mm[Hg] Kisha Hill APRN.QUALITY CONTROL ASSISTANT Work Phone: [facility] 03-24-2025 18:28-0400 Heart rate 122 /min Kisha Hill APRN.QUALITY CONTROL ASSISTANT Work Phone: [facility] 03-24-2025 18:28-0400 Respiratory rate 20 /min Kisha Hill APRN.QUALITY CONTROL ASSISTANT Work Phone: [facility] 03-24-2025 18:28-0400 SaO2% (BldA) [Mass fraction] 97 % Kisha Hill APRN.QUALITY CONTROL ASSISTANT Work Phone: [facility] 03-24-2025 18:28-0400 Systolic blood pressure 92 mm[Hg] Kisha Hill QUALITY CONTROL ASSISTANT Work Phone: [facility] 12-06-2024 14:14-0400 Body mass index (BMI) [Ratio] 41.51 kg/m2 Ean Luu DO Work Phone: [facility] 12-06-2024 14:14-0400 Body temperature 96.4 [degF] Ean Luu DO Work Phone: [facility] 12-06-2024 14:14-0400 Body weight 123.83 kg Ean Luu DO Work Phone: [facility] 12-06-2024 14:14-0400 Diastolic blood pressure 68 mm[Hg] Ean Luu DO Work Phone: [facility] 12-06-2024 14:14-0400 Heart rate 80 /min Ean Luu DO Work Phone: [facility] 12-06-2024 14:14-0400 Respiratory rate 16 /min Ean Luu DO Work Phone: [facility] 12-06-2024 14:14-0400 Systolic blood pressure 126 mm[Hg] Ean Luu DO Work Phone: [facility] 08-30-2024 15:25-0500 Body mass index (BMI) [Ratio] 41.21 kg/m2 Ean Luu DO Work Phone: [facility] 08-30-2024 15:25-0500 Body temperature 97.7 [degF] Ean Luu DO Work Phone: [facility] 08-30-2024 15:25-0500 Body weight 122.92 kg Ean Luu DO Work Phone: [facility] 08-30-2024 15:25-0500 Diastolic blood pressure 80 mm[Hg] Ean Luu DO Work Phone: [facility] 08-30-2024 15:25-0500 Heart rate 64 /min Ean Luu DO Work Phone: [facility] 08-30-2024 15:25-0500 Respiratory rate 16 /min Ean Luu DO Work Phone: [facility] 08-30-2024 15:25-0500 Systolic blood pressure 130 mm[Hg] Ean Luu DO Work Phone: [facility] 05-17-2024 15:18-0400 Diastolic blood pressure 82 mm[Hg] Ean Luu DO Work Phone: [facility] 05-17-2024 15:18-0400 Systolic blood pressure 140 mm[Hg] Ean Luu DO Work Phone: [facility] 05-17-2024 15:13-0400 Body mass index (BMI) [Ratio] 40.9 kg/m2 Ean Luu DO Work Phone: [facility] 05-17-2024 15:13-0400 Body temperature 97.81 [degF] Ean Luu DO Work Phone: [facility] 05-17-2024 15:13-0400 Body weight 122.02 kg Ean Luu DO Work Phone: [facility] 05-17-2024 15:13-0400 Heart rate 80 /min Ean Luu DO Work Phone: [facility] 05-17-2024 15:13-0400 Respiratory rate 20 /min Ean Luu DO Work Phone: [facility] 03-25-2024 13:08-0400 Body height 172.7 cm Catrina Lofton MD Work Phone: [facility] 03-25-2024 13:08-0400 Body mass index (BMI) [Ratio] 40.9 kg/m2 Catrina Lofton MD Work Phone: [facility] 03-25-2024 13:08-0400 Body weight 122.02 kg Catrina Lofton MD Work Phone: [facility] 03-25-2024 13:08-0400 Diastolic blood pressure 72 mm[Hg] Catrina Lofton MD Work Phone: [facility] 03-25-2024 13:08-0400 Heart rate 68 /min Catrina Lofton MD Work Phone: [facility] 03-25-2024 13:08-0400 Respiratory rate 20 /min Catrina Lofton MD Work Phone: [facility] 03-25-2024 13:08-0400 SaO2% (BldA) [Mass fraction] 96 % Catrina Lofton MD Work Phone: [facility] 03-25-2024 13:08-0400 Systolic blood pressure 132 mm[Hg] Catrina Lofton MD Work Phone: [facility] 02-23-2024 08:57-0400 Body height 175.7 cm Patrick Rubin MD Work Phone: [facility] 02-23-2024 08:57-0400 Body mass index (BMI) [Ratio] 39.67 kg/m2 Patrick Rubin MD Work Phone: [facility] 02-23-2024 08:57-0400 Body weight 122.47 kg Patrick Rubin MD Work Phone: [facility] 02-23-2024 08:57-0400 Diastolic blood pressure 71 mm[Hg] Patrick Rubin MD Work Phone: [facility] 02-23-2024 08:57-0400 Heart rate 74 /min Patrick Rubin MD Work Phone: [facility] 02-23-2024 08:57-0400 Systolic blood pressure 119 mm[Hg] Patrick Rubin MD Work Phone: [facility] 02-10-2024 15:28-0400 Body mass index (BMI) [Ratio] 41.11 kg/m2 Jenn Sotelo APRN.CNP Work Phone: [facility] 02-10-2024 15:28-0400 Body weight 126.92 kg Jenn Sotelo GI TECHNICIAN.QUALITY CONTROL ASSISTANT Work Phone: [facility] 02-10-2024 15:28-0400 Diastolic blood pressure 62 mm[Hg] Jenn Sotelo GI TECHNICIAN.QUALITY CONTROL ASSISTANT Work Phone: [facility] 02-10-2024 15:28-0400 Heart rate 72 /min Jenn Sotleo GI TECHNICIAN.QUALITY CONTROL ASSISTANT Work Phone: [facility] 02-10-2024 15:28-0400 Respiratory rate 16 /min Jenn Sotelo GI TECHNICIAN.QUALITY CONTROL ASSISTANT Work Phone: [facility] 02-10-2024 15:28-0400 Systolic blood pressure 124 mm[Hg] Jenn Sotelo GI TECHNICIAN.QUALITY CONTROL ASSISTANT Work Phone: [facility] 01-15-2024 16:06-0400 Body weight 128.73 kg Ean Luu DO Work Phone: [facility] 01-15-2024 16:06-0400 Diastolic blood pressure 80 mm[Hg] Ean Luu DO Work Phone: [facility] 01-15-2024 16:06-0400 Heart rate 100 /min Ean Luu DO Work Phone: [facility] 01-15-2024 16:06-0400 Respiratory rate 14 /min Ean Luu DO Work Phone: [facility] 01-15-2024 16:06-0400 Systolic blood pressure 150 mm[Hg] Ean Luu DO Work Phone: [facility] 07-15-2023 15:36-0400 Body temperature 97.3 [degF] Ean Luu DO Work Phone: [facility] 07-15-2023 15:36-0400 Body weight 126.55 kg Ean Luu DO Work Phone: [facility] 07-15-2023 15:36-0400 Diastolic blood pressure 80 mm[Hg] Ean Luu DO Work Phone: [facility] 07-15-2023 15:36-0400 Heart rate 68 /min Ean Luu DO Work Phone: [facility] 07-15-2023 15:36-0400 Respiratory rate 16 /min Ean Luu DO Work Phone: [facility] 07-15-2023 15:36-0400 Systolic blood pressure 130 mm[Hg] Ean Luu DO Work Phone: [facility] 01-07-2023 18:32-0400 Body temperature 97.7 [degF] Ean Luu DO Work Phone: [facility] 01-07-2023 18:32-0400 Body weight 130.64 kg Ean Luu DO Work Phone: [facility] 01-07-2023 18:32-0400 Diastolic blood pressure 70 mm[Hg] Ean Luu DO Work Phone: [facility] 01-07-2023 18:32-0400 Heart rate 80 /min Ean Luu DO Work Phone: [facility] 01-07-2023 18:32-0400 Respiratory rate 20 /min Ean Luu DO Work Phone: [facility] 01-07-2023 18:32-0400 Systolic blood pressure 136 mm[Hg] Ean Luu DO Work Phone: [facility] 12-01-2022 02:35-0500 Body height 175.7 cm Sleep Main Work Phone: [facility] 12-01-2022 02:35-0500 Body weight 130 kg Sleep Main Work Phone: [facility] 11-24-2022 08:19-0500 Body height 175.[address] Work Phone: [facility] 11-24-2022 08:19-0500 Body weight 130.[address] Work Phone: [facility] 11-19-2022 13:53-0500 Body height 175.3 cm Margaret Fofana GI TECHNICIAN.QUALITY CONTROL ASSISTANT Work Phone: [facility] 11-19-2022 13:53-0500 Body weight 132.54 kg Margaret Fofana GI TECHNICIAN.QUALITY CONTROL ASSISTANT Work Phone: [facility] 11-19-2022 13:53-0500 Diastolic blood pressure 84 mm[Hg] Margaretabiodun Fofana GI TECHNICIAN.QUALITY CONTROL ASSISTANT Work Phone: [facility] 11-19-2022 13:53-0500 Heart rate 76 /min Margaret Fofana GI TECHNICIAN.QUALITY CONTROL ASSISTANT Work Phone: [facility] 11-19-2022 13:53-0500 SaO2% (BldA) [Mass fraction] 97 % [facility] Fofana GI TECHNICIAN.QUALITY CONTROL ASSISTANT Work Phone: [facility] 11-19-2022 13:53-0500 Systolic blood pressure 136 mm[Hg] Margaretabiodun Fofana GI TECHNICIAN.QUALITY CONTROL ASSISTANT Work Phone: [facility] 10-24-2022 07:59-0500 Body height 175.3 cm Reba Vaughan GI TECHNICIAN.QUALITY CONTROL ASSISTANT Work Phone: [facility] 10-24-2022 07:59-0500 Body weight 130.64 kg Reba Vaughan GI TECHNICIAN.QUALITY CONTROL ASSISTANT Work Phone: [facility] 10-01-2022 17:00-0500 Body temperature 97.81 [degF] Ean Luu DO Work Phone: [facility] 10-01-2022 17:00-0500 Body weight 130.64 kg Ean Luu DO Work Phone: [facility] 10-01-2022 17:00-0500 Diastolic blood pressure 80 mm[Hg] Ean Luu DO Work Phone: [facility] 10-01-2022 17:00-0500 Heart rate 80 /min Ean Luu DO Work Phone: [facility] 10-01-2022 17:00-0500 Respiratory rate 16 /min Ean Luu DO Work Phone: [facility] 10-01-2022 17:00-0500 Systolic blood pressure 120 mm[Hg] Ean Luu DO Work Phone: [facility] 07-09-2022 17:32-0400 Body temperature 98.01 [degF] Ean Luu DO Work Phone: [facility] 07-09-2022 17:32-0400 Body weight 132 kg Ean Luu DO Work Phone: [facility] 07-09-2022 17:32-0400 Diastolic blood pressure 80 mm[Hg] Ean Luu DO Work Phone: [facility] 07-09-2022 17:32-0400 Heart rate 88 /min Ean Luu DO Work Phone: [facility] 07-09-2022 17:32-0400 Respiratory rate 16 /min Ean Luu DO Work Phone: [facility] 07-09-2022 17:32-0400 SaO2% (BldA) [Mass fraction] 99 % Ean Luu DO Work Phone: [facility] 07-09-2022 17:32-0400 Systolic blood pressure 138 mm[Hg] Ean Luu DO Work Phone: [facility] 12-25-2021 17:30-0400 Body temperature 96.69 [degF] Ean Luu DO Work Phone: [facility] 12-25-2021 17:30-0400 Body weight 130.64 kg Ean Luu DO Work Phone: [facility] 12-25-2021 17:30-0400 Diastolic blood pressure 70 mm[Hg] Ean Luu DO Work Phone: [facility] 12-25-2021 17:30-0400 Heart rate 88 /min Ean Luu DO Work Phone: [facility] 12-25-2021 17:30-0400 Respiratory rate 20 /min Ean Luu DO Work Phone: [facility] 12-25-2021 17:30-0400 Systolic blood pressure 124 mm[Hg] Ean Luu DO Work Phone: [facility] Encounters Encounter Date Encounter Type Care Provider Facility Start: 03-24-2025 End: 03-24-2025 Patient encounter procedure Kisha Hill QUALITY CONTROL ASSISTANT [facility] Comment on above: Hypotension, unspeci fied hypotension type (Primary Dx); Tachycardia Start: 03-05-2025 End: 03-06-2025 Refill Ean L Luu DO Work Phone: [facility] Comment on above: Refill Request Start: 12-06-2024 End: 12-06-2024 ambulatory EAN L LUU Facility:[facility] Start: 12-06-2024 End: 12-06-2024 Patient encounter procedure Ean L Luu DO Work Phone: [facility] Comment on above: Uncontrolled type 2 diabetes mellitus with hyperglycemia (HCC) (Primary Dx); Hyperlipidemia with target LDL less than 100; Essential hypertension; Primary hypertension; Vitamin B12 deficiency Start: 10-24-2024 End: 10-24-2024 ambulatory Ean Luu Facility[facility] Start: 10-10-2024 End: 10-10-2024 ambulatory Ean Luu Facility:[facility] Start: 10-05-2024 End: 10-05-2024 ambulatory Ean Luu Facility:[facility] Start: 10-05-2024 End: 10-05-2024 ambulatory Raji MCPHERSON Facility:[facility] Start: 08-30-2024 End: 08-30-2024 Patient encounter procedure Ean L Luu DO Work Phone: [facility] Comment on above: MIKKI (obstructive sle ep apnea) (Primary Dx); Uncontrolled type 2 diabetes mellitus with hyperglycemia (HCC); Primary hypertension; Hyperlipidemia with target LDL less than 100; Vitamin B12 deficiency; Ptosis, left eyelid; Fatigue, unspecified type Start: 08-30-2024 End: 08-30-2024 ambulatory EAN L LUU Facility:[facility] Start: 07-14-2024 End: 07-18-2024 Refill Jenn Sotelo GI TECHNICIAN.QUALITY CONTROL ASSISTANT Work Phone: [facility] Comment on above: Refill Request Start: 05-17-2024 End: 05-17-2024 Patient encounter procedure Ean Silverrison DO Work Phone: [facility] Comment on above: Uncontrolled type 2 diabetes mellitus with hyperglycemia (HCC) (Primary Dx); Primary hypertension; Hyperlipidemia with target LDL less than 100; MIKKI (obstructive sleep apnea); Vitamin B12 deficiency; ED (erectile dysfunction) of organic origin; Morbid obesity (HCC); Ptosis, left eyelid Start: 05-17-2024 End: 05-17-2024 ambulatory EAN LUU Facility:[facility] Start: 05-06-2024 End: 05-06-2024 ambulatory TJ BEAN Facility:[facility] Start: 05-02-2024 Telephone encounter Ean chan DO Work Phone: [facility] [place] Comment on above: Patient Question Start: 04-19-2024 Refill Mag Negrete on PA-C Work Phone: [facility] Comment on above: Refill Request Start: 03-25-2024 Telephone encounter Ean chan DO Work Phone: [facility] [place] Comment on above: Patient Update Start: 03-25-2024 End: 03-25-2024 ambulatory CATRINA LOFTON Facility:[facility] Start: 03-25-2024 End: 03-25-2024 Patient encounter procedure Catrina Lofton MD Work Phone: Endocrinology Comment on above: Low testosterone in male (Primary Dx) Start: 03-16-2024 Refill Jenn Sotelo GI TECHNICIAN.QUALITY CONTROL ASSISTANT Work Phone: [facility] Comment on above: Refill Request Start: 03-07-2024 End: 03-07-2024 Patient encounter procedure Patrick Rubin MD Work Phone: General Surgery Comment on above: Infected cyst of ski n (Primary Dx); Infected sebaceous cyst Refill Request Start: 03-07-2024 End: 03-07-2024 ambulatory PATRICK RUBIN Facility:[facility] Start: 02-23-2024 End: 02-23-2024 ambulatory PATRICK RUBIN Facility:[facility] Start: 02-23-2024 End: 02-23-2024 Patient encounter procedure Patrick Rubin MD Work Phone: General Surgery Comment on above: Infected sebaceous c yst (Primary Dx); Cutaneous abscess of other site Start: 02-19-2024 Refill Jenn Deepak GI TECHNICIAN.QUALITY CONTROL ASSISTANT Work Phone: [facility] Comment on above: Refill Request Start: 02-10-2024 End: 02-10-2024 ambulatory JENN SOTELO Facility:[facility] Start: 02-10-2024 End: 02-10-2024 Patient encounter procedure Jenn Sotelo GI TECHNICIAN.QUALITY CONTROL ASSISTANT Work Phone: [facility] Comment on above: Cutaneous abscess of other site (Primary Dx); Uncontrolled type 2 diabetes mellitus with hyperglycemia (HCC); Dysuria Start: 02-03-2024 Telephone encounter Ean chan DO Work Phone: [facility] Start: 01-31-2024 Refill Ean Garcia son DO Work Phone: [facility] Comment on above: Refill Request Start: 01-27-2024 End: 01-27-2024 ambulatory EAN LUU Facility:[facility] Start: 01-26-2024 Telephone encounter Ean chan DO Work Phone: [facility] Comment on above: Results, Lab Start: 01-15-2024 End: 01-15-2024 ambulatory EAN LUU Facility:[facility] Start: 01-15-2024 End: 01-15-2024 Patient encounter procedure Ean Luu DO Work Phone: [facility] Comment on above: Uncontrolled type 2 diabetes mellitus with hyperglycemia (HCC) (Primary Dx); Infected cyst of skin; Hyperlipidemia with target LDL less than 100; Essential hypertension; Vitamin B12 deficiency; ED (erectile dysfunction) of organic origin; Screening for prostate cancer Start: 01-15-2024 End: 01-15-2024 ambulatory EAN LUU Facility:[facility] Start: 01-15-2024 Refill Jenn Sotelo TORIE.QUALITY CONTROL ASSISTANT Work Phone: [facility] Comment on above: Refill Request Start: 08-03-2023 Refill Ean mahmood DO Work Phone: [facility] Comment on above: Refill Request Start: 07-15-2023 End: 07-15-2023 Patient encounter procedure Ean Luu DO Work Phone: [facility] Comment on above: Uncontrolled type 2 diabetes mellitus with hyperglycemia (HCC) (Primary Dx); Trigeminal neuralgia of left side of face; Essential hypertension; Vitamin B12 deficiency Start: 06-09-2023 Telephone encounter Ean chan DO Work Phone: [facility] Start: 05-18-2023 Refill Ean mahmood DO Work Phone: [facility] Comment on above: Refill Request Start: 04-16-2023 Telephone encounter Ean chan DO Work Phone: [facility] Comment on above: Patient Question Start: 04-02-2023 Refill Ean mahmood DO Work Phone: [facility] Comment on above: Refill Request Start: 02-26-2023 Telephone encounter Ean chan DO Work Phone: [facility] Comment on above: Insurance Authorizat ion ([employer] ) Start: 02-24-2023 Telephone encounter [facility] Work Phone: Neurology Comment on above: PAP Therapy Follow U p (11/27/22 - 02/24/23 ) Start: 02-17-2023 E-mail encounter toya bull caregiver Margaret Fofana APRN.QUALITY CONTROL ASSISTANT Work Phone: [facility] Start: 02-17-2023 Follow-up encounter Margaret Robles APRN.QUALITY CONTROL ASSISTANT Work Phone: Neurology Comment on above: BiPAP follow up Start: 02-02-2023 Telephone encounter Ean Francheska chan DO Work Phone: [facility] [place] Comment on above: Medication Problem Start: 01-07-2023 End: 01-07-2023 Patient encounter procedure Ean Luu DO Work Phone: Family [facility] [place] Comment on above: Uncontrolled type 2 diabetes mellitus with hyperglycemia (HCC) (Primary Dx); Chronic pain of both shoulders; Finger pain, left; Bilateral impacted cerumen; Hyperlipidemia with target LDL less than 100; Obesity, Class III, BMI 40-49.9 (morbid obesity) (HCC); Fatigue, unspecified type; Essential hypertension; MIKKI (obstructive sleep apnea) Start: 01-07-2023 Refill Jenn Sotelo APRN.QUALITY CONTROL ASSISTANT Work Phone: [facility] Comment on above: Refill Request Start: 01-06-2023 End: 01-06-2023 ambulatory Sathish Martínez MD Work Phone: General Surgery Comment on above: Obesity, Class III, BMI 40-49.9 (morbid obesity) (HCC) (Primary Dx); Controlled type 2 diabetes mellitus without complication, without long-term current use of insulin (HCC); MIKKI (obstructive sleep apnea) Start: 01-06-2023 End: 01-06-2023 Telemedicine consultation with patient Sathish Martínez MD Work Phone: [facility] Start: 12-29-2022 Orders Only Shara Upton MD Work Phone: Pulmonary Medicine Comment on above: Lung nodules (Primar y Dx) Start: 12-10-2022 Telephone encounter Margaret Robles APRN.QUALITY CONTROL ASSISTANT Work Phone: Neurology Comment on above: Patient Question (Hi s new CPAP machine) Start: 12-01-2022 Chart abstracting [facility] Work Phone: Neurology Start: 11-30-2022 End: 12-01-2022 ambulatory MARGARET FOFANA Facility:[facility] Start: 11-24-2022 End: 11-24-[address] Work Phone: General Surgery Comment on above: Obesity, Class III, BMI 40-49.9 (morbid obesity) (HCC) (Primary Dx); Controlled type 2 diabetes mellitus without complication, without long-term current use of insulin (HCC); Dietary counseling and surveillance Start: 11-24-2022 End: 11-24-2022 Telemedicine consultation with patient Carrie Mendozanini OLIVEIRA Work Phone: [facility] Start: 11-22-2022 Orders Only Shara Upton MD Work Phone: Pulmonary Medicine Comment on above: Lung nodules (Primar y Dx) Start: 11-21-2022 Telephone encounter Ean chan DO Work Phone: [facility] Comment on above: Orders Start: 11-19-2022 End: 11-19-2022 Patient encounter procedure Margaret Fofana APRN.CNP Work Phone: Neurology Comment on above: MIKKI (obstructive sle ep apnea) (Primary Dx); Primary hypertension; Obesity, Class III, BMI 40-49.9 (morbid obesity) (HCC) Start: 11-13-2022 End: 11-13-2022 Subsequent hospital visit by physician [facility] ([facility]) Work Phone: Cat Scan Comment [...] with patient Sathish Martínez MD Work Phone: [facility] Start: 10-30-2022 End: 10-30-2022 ambulatory Shara Upton MD Work Phone: Pulmonary Medicine Comment on above: Lung nodules (Primar y Dx); Morbid obesity (HCC) Start: 10-30-2022 End: 10-30-2022 Telemedicine consultation with patient Shara Upton MD Work Phone: [facility] Start: 10-28-2022 End: 10-28-2022 Orders Only Reba Vaughan APRN.QUALITY CONTROL ASSISTANT Work Phone: Endocrinology BMI Comment on above: Abnormal chest x-ray (Primary Dx) Class 3 severe obesi ty with serious comorbidity and body mass index (BMI) of 40.0 to 44.9 in adult, unspecified obesity type (HCC) [E66.01, Z68.41] Start: 10-27-2022 End: 10-27-2022 Subsequent hospital visit by physician Xr [facility] [place] Petar Work Phone: Radiology Comment on above: Class 3 severe obesi ty with serious comorbidity and body mass index (BMI) of 40.0 to 44.9 in adult, unspecified obesity type (HCC) [E66.01, Z68.41] Start: 10-24-2022 End: 10-24-2022 ambulatory Reba Vaughan APRN.QUALITY CONTROL ASSISTANT Work Phone: General Surgery Comment on above: Class 3 severe obesi ty with serious comorbidity and body mass index (BMI) of 40.0 to 44.9 in adult, unspecified obesity type (HCC) (Primary Dx); MIKKI (obstructive sleep apnea); Primary hypertension; Hyperlipidemia with target LDL less than 100; GERD without esophagitis; Vitamin D deficiency; Controlled type 2 diabetes mellitus without complication, unspecified whether mcc insulin use (HCC) Start: 10-24-2022 End: 10-24-2022 Telemedicine consultation with patient Reba Alexus VOGT.QUALITY CONTROL ASSISTANT Work Phone: [facility] Start: 10-01-2022 End: 10-01-2022 Patient encounter procedure Ean Luu DO Work Phone: [facility] Comment on above: Uncontrolled type 2 diabetes mellitus with hyperglycemia (HCC) (Primary Dx); Hyperlipidemia with target LDL less than 100; Carpal tunnel syndrome, bilateral; Fatigue, unspecified type; Essential hypertension; Obesity, Class III, BMI 40-49.9 (morbid obesity) (HCC) Start: 07-09-2022 End: 07-09-2022 Patient encounter procedure Ean Luu DO Work Phone: [facility] Comment on above: Uncontrolled type 2 diabetes mellitus with hyperglycemia (HCC) (Primary Dx); GERD without esophagitis; Fatigue, unspecified type; Essential hypertension; Hyperlipidemia with target LDL less than 100; Vitamin D deficiency; Obesity, Class III, BMI 40-49.9 (morbid obesity) ([facility]) Start: 07-09-2022 Telephone encounter Ean chan DO Work Phone: [facility] Comment on above: Insurance Authorizat ion Start: 05-05-2022 Refill Ean mahmood DO Work Phone: [facility] Comment on above: Refill Request Start: 01-29-2022 Refill Ean mahmood DO Work Phone: [facility] Comment on above: Refill Request Start: 12-30-2021 Telephone encounter Ean chan DO Work Phone: [facility] Comment on above: Results Start: 12-25-2021 End: 12-25-2021 Patient encounter procedure Ean Luu DO Work Phone: [facility] Comment on above: Uncontrolled type 2 diabetes mellitus with hyperglycemia (HCC) (Primary Dx); Hyperlipidemia with target LDL less than 100; Essential hypertension; Obesity, Class III, BMI 40-49.9 (morbid obesity) ([facility]); Actinic keratosis Procedures Date Procedure Procedure Detail Performing Clinician Start: 02-10-2024 Urnls dip stick/tabl et rgnt auto w/o microscopy Jennkamila Sotelo APRN.QUALITY CONTROL ASSISTANT Work Phone: Start: 11-13-2022 Ct thorax w/o contra st material Shara Arielle Brown MD Work Phone: Start: 10-28-2022 Ecg routine ecg w/le ast 12 lds i&r only Reba Vaughan GI TECHNICIAN.QUALITY CONTROL ASSISTANT Work Phone: Start: 10-27-2022 Radiologic exam ches t 2 views Reba Vaughan APRN.QUALITY CONTROL ASSISTANT Work Phone: Start: 10-27-2022 Us abdominal real ti me w/image limited Reba Vaughan APRN.QUALITY CONTROL ASSISTANT Work Phone: Start: 10-01-2022 Hemoglobin A1c/Hemoglobin.total in Blood Ean Luu DO Work Phone: Start: 04-02-2022 Adult depression screening assessment Ean Luu DO Work Phone: Start: 03-11-2021 Adult depression screening assessment Ean Luu Work Phone: Plan of Treatment Date Care Activity Detail Author Start: 02-04-2026 Urine microalbumin profile [facility] Start: 12-06-2025 Annual PCP Team Chronic Disease Visit Annual PCP Team Chronic Disease Visit [facility] Start: 12-06-2025 BP Controlled (<130/80) BP Controlled (<130/80) [facility] Start: 08-30-2025 Annual PCP Team Chronic Disease Visit Annual PCP Team Chronic Disease Visit [facility] Start: 08-30-2025 Covid-19 Vaccine () Covid-19 Vaccine () [facility] Comment on above: Postponed from 05/29/2024 (Declined at t his time) Start: 07-14-2025 Glaucoma screening Dilated Retinal Exam [facility] Start: 06-08-2025 End: 09-07-2025 CBC panel - Blood by Automated count COMPLETE BLOOD COUNT Lab Routine Hyperlipidemia with target LDL less than 100 Expected: 06/08/2025, Expires: 09/07/2025 [facility] Comment on above: Expected: 06/08/2025, Expires: Start: 06-08-2025 End: 09-07-2025 Comprehensive metabolic 2000 panel - Serum or Plasma COMPREHENSIVE METABOLIC PANEL Lab Routine Hyperlipidemia with target LDL less than 100 Vitamin B12 deficiency Expected: 06/08/2025, Expires: 09/07/2025 [facility] Comment on above: Expected: 06/08/2025, Expires: Start: 06-08-2025 End: 09-07-2025 Hemoglobin A1c in Blood HEMOGLOBIN A1C Lab Routine Uncontrolled type 2 diabetes mellitus with hyperglycemia (HCC) Expected: 06/08/2025, Expires: 09/07/2025 [facility] Work Phone: Comment on above: Expected: 06/08/2025, Expires: Start: 06-08-2025 End: 09-07-2025 Lipid 1996 panel - Serum or Plasma LIPID PANEL BASIC Lab Routine Hyperlipidemia with target LDL less than 100 Expected: 06/08/2025, Expires: 09/07/2025 [facility] Comment on above: Expected: 06/08/2025, Expires: Start: 06-08-2025 End: 09-07-2025 Microalbumin/Creatinin e [Mass Ratio] in Urine ALBUMIN/CREATININE RATIO, URINE Lab Routine Uncontrolled type 2 diabetes mellitus with hyperglycemia (HCC) Expected: 06/08/2025, Expires: 09/07/2025 [facility] Comment on above: Expected: 06/08/2025, Expires: Start: 06-06-2025 End: 06-06-2025 Patient encounter procedure 06/06/2025 2:40 PM EDT Office Visit [facility] [address] [place], [place] [id number] Ean Luu DO [address] [place] [address] [facility] Comment on above: Physical Start: 05-29-2025 Influenza vaccination Influenza Vaccine (Season Ended) [facility] Start: 05-18-2025 Diabetic foot examination Diabetic Foot Exam [facility] Start: 05-17-2025 Annual PCP Team Chronic Disease Visit Annual PCP Team Chronic Disease Visit [facility] Start: 05-06-2025 Hepatitis B screening Urine Albumin:Creatinine Ratio [facility] Start: 05-06-2025 Hepatitis B surface antibody level LDL Cholesterol [facility] Start: 03-27-2025 [facility]: Postponed from 05/29/2024 (Declined at t his time) Start: 02-22-2025 BP Controlled (<130/80) BP Controlled (<130/80) [facility] Start: 02-09-2025 Annual PCP Team Chronic Disease Visit Annual PCP Team Chronic Disease Visit [facility] Start: 02-09-2025 BP Controlled (<130/80) BP Controlled (<130/80) [facility] Start: 01-14-2025 Annual PCP Team Chronic Disease Visit Annual PCP Team Chronic Disease Visit [facility] Start: 01-14-2025 Covid-19 Vaccine () Covid-19 Vaccine () [facility] Comment on above: Postponed from 05/29/2023 (Declined at t his time) Start: 01-14-2025 Hepatitis B surface antibody level LDL Cholesterol [facility] Start: 01-14-2025 Pneumococcal vaccination Pneumococcal Vaccine (2 of 2 - PCV) [facility] Comment on above: Postponed from 09/15/2013 (Declined at t his time) Start: 12-06-2024 End: 12-06-2024 Patient encounter procedure 12/06/2024 2:40 PM EDT Office Visit Family [facility] [address] [place] [address] Ean Luu, DO [address] [place], [place] [address] 3 month follow up Family [facility] Comment on above: 3 month follow up Start: 11-06-2024 Hemoglobin A1c measurement HbA1C [facility] Start: 08-30-2024 End: 08-30-2024 Patient encounter procedure 08/30/2024 3:00 PM EST Office Visit Family [facility] [address] [place] [address] Ean Luu, DO [address] [place] [address] 3 month follow up Family [facility] Comment on above: 3 month follow up Start: 08-30-2024 End: 11-29-2024 CBC W Auto Differential panel - Blood COMPLETE BLOOD COUNT AND DIFFERENTIAL Lab Routine Uncontrolled type 2 diabetes mellitus with hyperglycemia (HCC) Expected: 08/30/2024, Expires: 11/29/2024 [facility] Comment on above: Expected: 08/30/2024, Expires: Start: 08-30-2024 End: 11-29-2024 Comprehensive metabolic 2000 panel - Serum or Plasma COMPREHENSIVE METABOLIC PANEL Lab Routine Uncontrolled type 2 diabetes mellitus with hyperglycemia (HCC) Expected: 08/30/2024, Expires: 11/29/2024 [facility] Comment on above: Expected: 08/30/2024, Expires: Start: 08-30-2024 End: 11-29-2024 Hemoglobin A1c in Blood HEMOGLOBIN A1C Lab Routine Uncontrolled type 2 diabetes mellitus with hyperglycemia (HCC) Expected: 08/30/2024, Expires: 11/29/2024 [facility] Work Phone: Comment on above: Expected: 08/30/2024, Expires: Start: 07-15-2024 3 comp foot exam completed Diabetic Foot Exam [facility] Start: 07-15-2024 Annual PCP Team Chronic Disease Visit Annual PCP Team Chronic Disease Visit [facility] Start: 07-15-2024 BP Controlled (<130/80) BP Controlled (<130/80) [facility] Start: 07-15-2024 Diabetic foot examination Diabetic Foot Exam [facility] Start: 06-27-2024 Hepatitis B screening Urine Albumin:Creatinine Ratio [facility] Start: 06-27-2024 Hepatitis B surface antibody level LDL Cholesterol [facility] Start: 05-29-2024 Covid-19 Vaccine ( season) Covid-19 Vaccine ( season) [facility] Start: 05-29-2024 Influenza vaccination [facility] Start: 05-17-2024 End: 05-17-2024 Patient encounter procedure 05/17/2024 3:20 PM EDT Office Visit [facility] [address] [facility] [place] [address] Ean Luu DO [address] [place] [address] 3 month f/up [facility] Comment on above: 3 month f/up Start: 05-06-2024 End: 05-06-2024 ambulatory 05/06/2024 8:15 AM EDT Results Only [facility] [address] [place] [address] [facility] Start: 05-02-2024 End: 08-01-2024 Comprehensive metabolic 2000 panel - Serum or Plasma COMPREHENSIVE METABOLIC PANEL Lab Routine Hyperlipidemia with target LDL less than 100 Diabetes mellitus type 2 with ketoacidosis, uncontrolled (HCC) Expected: 05/02/2024, Expires: 08/01/2024 [facility] Comment on above: Expected: 05/02/2024, Expires: Start: 05-02-2024 End: 08-01-2024 Hemoglobin A1c in Blood HEMOGLOBIN A1C Lab Routine Hyperlipidemia with target LDL less than 100 Diabetes mellitus type 2 with ketoacidosis, uncontrolled (HCC) Expected: 05/02/2024, Expires: 08/01/2024 [facility] Work Phone: Comment on above: Expected: 05/02/2024, Expires: Start: 05-02-2024 End: 08-01-2024 Lipid 1996 panel - Serum or Plasma LIPID PANEL BASIC Lab Routine Hyperlipidemia with target LDL less than 100 Expected: 05/02/2024, Expires: 08/01/2024 [facility] Comment on above: Expected: 05/02/2024, Expires: Start: 05-02-2024 End: 08-01-2024 Microalbumin/Creatinin e [Mass Ratio] in Urine ALBUMIN/CREATININE RATIO, URINE Lab Routine Diabetes mellitus type 2 with ketoacidosis, uncontrolled (HCC) Expected: 05/02/2024, Expires: 08/01/2024 [facility] Comment on above: Expected: 05/02/2024, Expires: Start: 05-02-2024 End: 08-01-2024 Thyrotropin [Units/volume] in Serum or Plasma THYROID STIMULATING HORMONE Lab Routine Hyperlipidemia with target LDL less than 100 Expected: 05/02/2024, Expires: 08/01/2024 [facility] Comment on above: Expected: 05/02/2024, Expires: Start: 04-15-2024 Hemoglobin A1c measurement HbA1C [facility] Start: 03-27-2024 Influenza vaccination Influenza Vaccine (#1) [facility] Comment on above: Postponed from 05/29/2023 (Declined at t his time) Start: 03-25-2024 End: 03-25-2024 Patient encounter procedure 03/25/2024 1:00 PM EDT [facility] [address] [facility] [place] [id number] Cartina Lofton MD [address] [facility] [place], [place] [id number] TESTOSTERONE Endocrinology Comment on above: TESTOSTERONE Start: 03-07-2024 End: 03-07-2024 Patient encounter procedure 03/07/2024 8:00 AM EDT Office Visit General Surgery [address] [facility] [address] [place], [place] [id number] Patrick Rubin MD [address] [facility] [address] [place], [place] [id number] 10-14 day L groin abscess review General [...] Routine Low testosterone Expected: 01/26/2024, Expires: 04/26/2024 [facility] Work Phone: Comment on above: Expected: 01/26/2024, Expires: Start: 01-15-2024 End: 04-15-2024 Comprehensive metabolic 2000 panel - Serum or Plasma [facility] Work Phone: Comment on above: Expected: 01/15/2024, Expires: Start: 01-15-2024 End: 04-15-2024 Hemoglobin A1c in Blood [facility] Work Phone: Comment on above: Expected: 01/15/2024, Expires: Start: 01-15-2024 End: 04-15-2024 LIPID PANEL, NONFASTING [facility] Work Phone: Comment on above: Expected: 01/15/2024, Expires: Start: 01-15-2024 End: 04-15-2024 PSA/PROSTATE SPECIFIC ANTIGEN SCREENING [facility] Work Phone: Comment on above: Expected: 01/15/2024, Expires: Start: 01-15-2024 End: 04-15-2024 TESTOSTERONE, FREE AND TOTAL [facility] Work Phone: Comment on above: Expected: 01/15/2024, Expires: Start: 01-08-2024 ANNUAL PCP TEAM CHRONIC DISEASE VISIT ANNUAL PCP TEAM CHRONIC DISEASE VISIT [facility] Start: 10-27-2023 Hepatitis B surface antibody level LDL CHOLESTEROL [facility] Start: 10-01-2023 ANNUAL PCP TEAM CHRONIC DISEASE VISIT ANNUAL PCP TEAM CHRONIC DISEASE VISIT [facility] Start: 10-01-2023 COVID-19 VACCINE (#1) COVID-19 VACCINE (#1) [facility] Comment on above: Postponed from 1976 (Declined at t his time) Start: 09-26-2023 Hemoglobin A1c measurement HbA1C [facility] Start: 09-26-2023 Hemoglobin A1c/Hemoglobin.total in Blood HbA1C [facility] Start: 07-09-2023 ANNUAL PCP TEAM CHRONIC DISEASE VISIT ANNUAL PCP TEAM CHRONIC DISEASE VISIT [facility] Start: 07-09-2023 PNEUMOCOCCAL (2 - PCV) PNEUMOCOCCAL (2 - PCV) [facility] Comment on above: Postponed from 09/15/2013 (Declined at t his time) Start: 07-09-2023 Pneumococcal vaccination Pneumococcal Vaccine (2 - PCV) [facility] Comment on above: Postponed from 09/15/2013 (Declined at t his time) Start: 06-10-2023 End: 08-10-2023 ALBUMIN/CREAT RATIO RND UR ALBUMIN/CREAT RATIO RND UR Lab Routine Diabetes mellitus type 2 with ketoacidosis, uncontrolled (HCC) Expected: 06/10/2023, Expires: 08/10/2023 [facility] Work Phone: Comment on above: Expected: 06/10/2023, Expires: 3 Start: 06-10-2023 End: 08-10-2023 CBC W Auto Differential panel - Blood CBC + DIFF Lab Routine Hypercholesteremia Expected: 06/10/2023, Expires: 08/10/2023 [facility] Work Phone: Comment on above: Expected: 06/10/2023, Expires: Start: 06-10-2023 End: 08-10-2023 Cobalamin (Vitamin B12) [Mass/volume] in Serum or Plasma VITAMIN B12 BLOOD Lab Routine Vitamin B12 deficiency Expected: 06/10/2023, Expires: 08/10/2023 [facility] Work Phone: Comment on above: Expected: 06/10/2023, Expires: 3 Start: 06-10-2023 End: 08-10-2023 Comprehensive metabolic 2000 panel - Serum or Plasma COMP METABOLIC PANEL Lab Routine Hypercholesteremia Expected: 06/10/2023, Expires: 08/10/2023 [facility] Work Phone: Comment on above: Expected: 06/10/2023, Expires: 3 Start: 06-10-2023 End: 08-10-2023 Hemoglobin A1c in Blood HGB A1C Lab Routine Diabetes mellitus type 2 with ketoacidosis, uncontrolled (HCC) Expected: 06/10/2023, Expires: 08/10/2023 [facility] Work Phone: Comment on above: Expected: 06/10/2023, Expires: 3 Start: 06-10-2023 End: 08-10-2023 Lipid 1996 panel - Serum or Plasma LIPID PANEL BASIC Lab Routine Hypercholesteremia Expected: 06/10/2023, Expires: 08/10/2023 [facility] Work Phone: Comment on above: Expected: 06/10/2023, Expires: 3 Start: 06-10-2023 End: 08-10-2023 Thyrotropin [Units/volume] in Serum or Plasma TSH BLD Lab Routine Diabetes mellitus type 2 with ketoacidosis, uncontrolled (HCC) Expected: 06/10/2023, Expires: 08/10/2023 [facility] Work Phone: Comment on above: Expected: 06/10/2023, Expires: 3 Start: 06-10-2023 End: 08-10-2023 Urate [Mass/volume] in Serum or Plasma URIC ACID BLOOD Lab Routine Gout, unspecified cause, unspecified chronicity, unspecified site Expected: 06/10/2023, Expires: 08/10/2023 [facility] Work Phone: Comment on above: Expected: 06/10/2023, Expires: 3 Start: 05-29-2023 Influenza vaccination [facility] Start: 04-02-2023 3 comp foot exam completed DIABETIC FOOT EXAM [facility] Start: 04-02-2023 Adult depression screening assessment DEPRESSION SCREENING [facility] Start: 04-02-2023 ANNUAL PCP TEAM CHRONIC DISEASE VISIT ANNUAL PCP TEAM CHRONIC DISEASE VISIT [facility] Start: 04-02-2023 BP CONTROLLED (<130/80) BP CONTROLLED (<130/80) [facility] Start: 03-27-2023 Influenza vaccination INFLUENZA (#1) [facility] Comment on above: Postponed from 05/29/2022 (Declined at t his time) Start: 02-09-2023 End: 01-28-2024 Ct thorax w/o contrast material CT CHEST WO IVCON Radiology Routine Lung nodules Expected: 02/09/2023, Expires: 01/28/2024 [facility] Work Phone: Comment on above: Expected: 02/09/2023, Expires: 4 Start: 01-25-2023 Hemoglobin A1c/Hemoglobin.total in Blood HBA1C [facility] Start: 12-30-2022 End: 03-01-2023 CBC panel - Blood by Automated count CBC Lab Routine Uncontrolled type 2 diabetes mellitus with hyperglycemia (HCC) Expected: 12/30/2022, Expires: 03/01/2023 [facility] Work Phone: Comment on above: Expected: 12/30/2022, Expires: 3 Start: 12-30-2022 End: 03-01-2023 Comprehensive metabolic 2000 panel - Serum or Plasma COMP METABOLIC PANEL Lab Routine Uncontrolled type 2 diabetes mellitus with hyperglycemia (HCC) Expected: 12/30/2022, Expires: 03/01/2023 [facility] Work Phone: Comment on above: Expected: 12/30/2022, Expires: 3 Start: 12-30-2022 End: 03-01-2023 Hemoglobin A1c in Blood HGB A1C Lab Routine Uncontrolled type 2 diabetes mellitus with hyperglycemia (HCC) Expected: 12/30/2022, Expires: 03/01/2023 [facility] Work Phone: Comment on above: Expected: 12/30/2022, Expires: 3 Start: 12-30-2022 Hemoglobin A1c/Hemoglobin.total in Blood HBA1C [facility] Start: 12-28-2022 Hepatitis B screening URINE ALBUMIN:CREATININE RATIO [facility] Start: 12-28-2022 Hepatitis B surface antibody level LDL CHOLESTEROL [facility] Start: 12-25-2022 ANNUAL PCP TEAM CHRONIC DISEASE VISIT ANNUAL PCP TEAM CHRONIC DISEASE VISIT [facility] Start: 12-25-2022 BP CONTROLLED (<130/80) BP CONTROLLED (<130/80) [facility] Start: 11-22-2022 End: 01-22-2023 FUNGAL BATTERY CF FUNGAL BATTERY CF Lab Routine Lung nodules Expected: 11/22/2022, Expires: 01/22/2023 [facility] Work Phone: Comment on above: Expected: 11/22/2022, Expires: 3 Start: 11-22-2022 End: 01-22-2023 FUNGAL BATTERY ID FUNGAL BATTERY ID Lab Routine Lung nodules Expected: 11/22/2022, Expires: 01/22/2023 [facility] Work Phone: Comment on above: Expected: 11/22/2022, Expires: 3 Start: 11-22-2022 End: 01-22-2023 HISTOPLASMA AG URINE HISTOPLASMA AG URINE Lab Routine Lung nodules Expected: 11/22/2022, Expires: 01/22/2023 [facility] Work Phone: Comment on above: Expected: 11/22/2022, Expires: 3 Start: 10-30-2022 End: 11-29-2023 Ct thorax w/o contrast material CT CHEST WO IVCON Radiology Routine Lung nodules Expected: 10/30/2022, Expires: 11/29/2023 [facility] Work Phone: Comment on above: Expected: 10/30/2022, Expires: 4 Start: 10-24-2022 End: 12-24-2022 25-hydroxyvitamin D3 [Mass/volume] in Serum or Plasma VITAMIN D 25 HYDROXY Lab Routine Class 3 severe obesity with serious comorbidity and body mass index (BMI) of 40.0 to 44.9 in adult, unspecified obesity type (HCC) Expected: 10/24/2022, Expires: 12/24/2022 [facility] Work Phone: Comment on above: Expected: 10/24/2022, Expires: 3 Start: 10-24-2022 End: 12-24-2022 CBC W Auto Differential panel - Blood CBC + DIFF Lab Routine Class 3 severe obesity with serious comorbidity and body mass index (BMI) of 40.0 to 44.9 in adult, unspecified obesity type (HCC) Expected: 10/24/2022, Expires: 12/24/2022 [facility] Work Phone: Comment on above: Expected: 10/24/2022, Expires: 3 Start: 10-24-2022 End: 12-24-2022 Cobalamin (Vitamin B12) [Mass/volume] in Serum or Plasma VITAMIN B12 BLOOD Lab Routine Class 3 severe obesity with serious comorbidity and body mass index (BMI) of 40.0 to 44.9 in adult, unspecified obesity type (HCC) Expected: 10/24/2022, Expires: 12/24/2022 [facility] Work Phone: Comment on above: Expected: 10/24/2022, Expires: Start: 10-24-2022 End: 12-24-2022 Comprehensive metabolic 2000 panel - Serum or Plasma COMP METABOLIC PANEL Lab Routine Class 3 severe obesity with serious comorbidity and body mass index (BMI) of 40.0 to 44.9 in adult, unspecified obesity type (HCC) Expected: 10/24/2022, Expires: 12/24/2022 [facility] Work Phone: Comment on above: Expected: 10/24/2022, Expires: Start: 10-24-2022 End: 12-24-2022 Ferritin [Mass/volume] in Serum or Plasma FERRITIN BLD Lab Routine Class 3 severe obesity with serious comorbidity and body mass index (BMI) of 40.0 to 44.9 in adult, unspecified obesity type (HCC) Expected: 10/24/2022, Expires: 12/24/2022 [facility] Work Phone: Comment on above: Expected: 10/24/2022, Expires: Start: 10-24-2022 End: 12-24-2022 Folate [Mass/volume] in Serum or Plasma FOLATE SERUM Lab Routine Class 3 severe obesity with serious comorbidity and body mass index (BMI) of 40.0 to 44.9 in adult, unspecified obesity type (HCC) Expected: 10/24/2022, Expires: 12/24/2022 [facility] Work Phone: Comment on above: Expected: 10/24/2022, Expires: Start: 10-24-2022 End: 12-24-2022 Hemoglobin A1c in Blood HGB A1C Lab Routine Class 3 severe obesity with serious comorbidity and body mass index (BMI) of 40.0 to 44.9 in adult, unspecified obesity type (HCC) Expected: 10/24/2022, Expires: 12/24/2022 [facility] Work Phone: Comment on above: Expected: 10/24/2022, Expires: Start: 10-24-2022 End: 12-24-2022 Iron and Iron binding capacity panel - Serum or Plasma IRON + TIBC Lab Routine Class 3 severe obesity with serious comorbidity and body mass index (BMI) of 40.0 to 44.9 in adult, unspecified obesity type (HCC) Expected: 10/24/2022, Expires: 12/24/2022 [facility] Work Phone: Comment on above: Expected: 10/24/2022, Expires: Start: 10-24-2022 End: 12-24-2022 Lipid 1996 panel - Serum or Plasma LIPID PANEL BASIC Lab Routine Class 3 severe obesity with serious comorbidity and body mass index (BMI) of 40.0 to 44.9 in adult, unspecified obesity type (HCC) Expected: 10/24/2022, Expires: 12/24/2022 [facility] Work Phone: Comment on above: Expected: 10/24/2022, Expires: Start: 10-24-2022 End: 12-24-2022 Natriuretic peptide.B prohormone N-Terminal [Mass/volume] in Serum or Plasma NT PRO BNP Lab Routine Class 3 severe obesity with serious comorbidity and body mass index (BMI) of 40.0 to 44.9 in adult, unspecified obesity type (HCC) Expected: 10/24/2022, Expires: 12/24/2022 [facility] Work Phone: Comment on above: Expected: 10/24/2022, Expires: Start: 10-24-2022 End: 12-24-2022 NICOTINE & METAB, UR NICOTINE & METAB, UR Lab Routine Class 3 severe obesity with serious comorbidity and body mass index (BMI) of 40.0 to 44.9 in adult, unspecified obesity type (HCC) Expected: 10/24/2022, Expires: 12/24/2022 [facility] Work Phone: Comment on above: Expected: 10/24/2022, Expires: 3 Start: 10-24-2022 End: 12-24-2022 Thyrotropin [Units/volume] in Serum or Plasma TSH BLD Lab Routine Class 3 severe obesity with serious comorbidity and body mass index (BMI) of 40.0 to 44.9 in adult, unspecified obesity type (HCC) Expected: 10/24/2022, Expires: 12/24/2022 [facility] Work Phone: Comment on above: Expected: 10/24/2022, Expires: 3 Start: 10-24-2022 End: 12-24-2022 TOX SCREEN ROUT UR TOX SCREEN ROUT UR Lab Routine Class 3 severe obesity with serious comorbidity and body mass index (BMI) of 40.0 to 44.9 in adult, unspecified obesity type (HCC) Expected: 10/24/2022, Expires: 12/24/2022 [facility] Work Phone: Comment on above: Expected: 10/24/2022, Expires: 3 Start: 10-24-2022 End: 12-24-2022 VITAMIN B1 (THIAMINE), WHOLE BLOOD VITAMIN B1 (THIAMINE), WHOLE BLOOD Lab Routine Class 3 severe obesity with serious comorbidity and body mass index (BMI) of 40.0 to 44.9 in adult, unspecified obesity type (HCC) Expected: 10/24/2022, Expires: 12/24/2022 [facility] Work Phone: Comment on above: Expected: 10/24/2022, Expires: 3 Start: 09-02-2022 COVID-19 VACCINE (#1) COVID-19 VACCINE (#1) [facility] Comment on above: Postponed from 1976 (Declined at t his time) Start: 09-02-2022 COVID-19 VACCINE (1) COVID-19 VACCINE (1) [facility] Comment on above: Postponed from 1981 (Declined at t his time) Start: 06-21-2022 Hepatitis B surface antibody level LDL CHOLESTEROL [facility] Start: 05-31-2022 Glaucoma screening Dilated Retinal Exam [facility] Start: 05-31-2022 Hepatitis C antibody, confirmatory test DILATED RETINAL EXAM [facility] Start: 05-29-2022 Influenza vaccination [facility] Start: 03-29-2022 Hemoglobin A1c/Hemoglobin.total in Blood HBA1C [facility] Start: 03-27-2022 Influenza vaccination INFLUENZA (#1) [facility] Comment on above: Postponed from 05/29/2021 (Declined at t his time) Start: 03-13-2022 3 comp foot exam completed DIABETIC FOOT EXAM [facility] Start: 03-11-2022 Adult depression screening assessment DEPRESSION SCREENING [facility] Start: 12-25-2021 End: 02-24-2022 ALBUMIN/CREAT RATIO RND UR ALBUMIN/CREAT RATIO RND UR Lab Routine Expected: 12/25/2021, Expires: 02/24/2022 [facility] Work Phone: Comment on above: Expected: 12/25/2021, Expires: 2 Start: 12-25-2021 End: 02-24-2022 CBC panel - Blood by Automated count CBC Lab Routine Expected: 12/25/2021, Expires: 02/24/2022 [facility] Work Phone: Comment on above: Expected: 12/25/2021, Expires: 2 Start: 12-25-2021 End: 02-24-2022 Comprehensive metabolic 2000 panel - Serum or Plasma COMP METABOLIC PANEL Lab Routine Expected: 12/25/2021, Expires: 02/24/2022 [facility] Work Phone: Comment on above: Expected: 12/25/2021, Expires: 2 Start: 12-25-2021 End: 02-24-2022 Hemoglobin A1c/Hemoglobin.total in Blood HGB A1C Lab Routine Expected: 12/25/2021 (Approximate), Expires: 02/24/2022 [facility] Work Phone: Comment on above: Expected: 12/25/2021 (Approximate), Expi res: 02/24/2022 Start: 12-25-2021 End: 02-24-2022 LIPID PANEL BASIC LIPID PANEL BASIC Lab Routine Hyperlipidemia with target LDL less than 100 Expected: 12/25/2021, Expires: 02/24/2022 [facility] Work Phone: Comment on above: Expected: 12/25/2021, Expires: 2 Start: 12-25-2021 End: 02-24-2022 Urinalysis complete panel - Urine URINALYSIS, WITH MICROSCOPIC Lab Routine Expected: 12/25/2021, Expires: 02/24/2022 [facility] Work Phone: Comment on above: Expected: 12/25/2021, Expires: 2 Start: 12-01-2021 Hemoglobin A1c/Hemoglobin.total in Blood HBA1C [facility] Start: 2021 COLOGUARD (FIT-DNA) COLOGUARD (FIT-DNA) [facility] Start: 2021 Colonoscopy COLONOSCOPY [facility] Start: 2021 COLORECTAL CANCER SCREENING COLORECTAL CANCER SCREENING [facility] Start: [address] COLONOGRAPHY [facility] Start: 2021 FECAL OCCULT BLOOD FECAL OCCULT BLOOD [facility] Start: 2021 Screening for malignant neoplasm of colon [facility] Start: 2021 SIGMOIDOSCOPY SIGMOIDOSCOPY [facility] Start: 02-13-2020 Hepatitis B screening URINE ALBUMIN:CREATININE RATIO [facility] Start: 09-15-2013 PNEUMOCOCCAL (2 - PCV) PNEUMOCOCCAL (2 - PCV) [facility] Start: 09-15-2013 Pneumococcal vaccination [facility] Start: 1995 Hepatitis B Vaccine (1 of 3 - 19+ 3-dose series) Hepatitis B Vaccine (1 of 3 - 19+ 3-dose series) [facility] Start: 1994 Depression Screening Depression Screening [facility] Start: 1994 HEPATITIS C SCREENING HEPATITIS C SCREENING [facility] Start: 1994 Hepatitis C screening Hepatitis C Screening [facility] Start: 1994 HIV SCREENING HIV SCREENING [facility] Start: 1994 HIV screening HIV Screening [facility] Start: 1976 HEPATITIS B (1 of 3 - 3-dose series) HEPATITIS B (1 of 3 - 3-dose series) [facility] Start: 1976 Hepatitis B Vaccine (1 of 3 - 3-dose series) Hepatitis B Vaccine (1 of 3 - 3-dose series) [facility] End: 10-24-2023 ECG COMPLETE ECG COMPLETE ECG Routine Class 3 severe obesity with serious comorbidity and body mass index (BMI) of 40.0 to 44.9 in adult, unspecified obesity type (HCC) 1 Occurrences starting 10/24/2022 until 10/24/2023 [facility] Work Phone: Comment on above: 1 Occurrences starting 10/24/2022 until 10/24/2023 End: 10-28-2022 ECG COMPLETE ECG COMPLETE ECG Routine Class 3 severe obesity with serious comorbidity and body mass index (BMI) of 40.0 to 44.9 in adult, unspecified obesity type (HCC) 1 Occurrences starting 10/28/2022 until 10/28/2022 [facility] Work Phone: Comment on above: 1 Occurrences starting 10/28/2022 until 10/28/2022 End: 10-24-2023 HOME SLEEP APNEA TEST (HSAT) HOME SLEEP APNEA TEST (HSAT) Procedures Routine Class 3 severe obesity with serious comorbidity and body mass index (BMI) of 40.0 to 44.9 in adult, unspecified obesity type (HCC) MIKKI (obstructive sleep apnea) 1 Occurrences starting 10/24/2022 until 10/24/2023 [facility] Work Phone: Comment on above: 1 Occurrences starting 10/24/2022 until 10/24/2023 End: 12-19-2023 PAP TITRATION PSG (CPAP, BIPAP, ASV) PAP TITRATION PSG (CPAP, BIPAP, ASV) Procedures Routine MIKKI (obstructive sleep apnea) 1 Occurrences starting 11/19/2022 until 12/19/2023 [facility] Work Phone: Comment on above: 1 Occurrences starting 11/19/2022 until 12/19/2023 End: 11-23-2023 Radiologic exam chest 2 views XR CHEST 2V FRONTAL/LAT Radiology Routine Class 3 severe obesity with serious comorbidity and body mass index (BMI) of 40.0 to 44.9 in adult, unspecified obesity type (HCC) 1 Occurrences starting 10/24/2022 until 11/23/2023 [facility] Work Phone: Comment on above: 1 Occurrences starting 10/24/2022 until 11/23/2023 TESTOSTERONE, FREE A ND TOTAL TESTOSTERONE, FREE AND TOTAL Lab Routine Low testosterone 01/27/2024 7:53 AM EDT [facility] End: 11-23-2023 Us abdominal real time w/image limited US ABD RT UPPER QUADRANT Radiology Routine Class 3 severe obesity with serious comorbidity and body mass index (BMI) of 40.0 to 44.9 in adult, unspecified obesity type (HCC) 1 Occurrences starting 10/24/2022 until 11/23/2023 [facility] Work Phone: Comment on above: 1 Occurrences starting 10/24/2022 until 11/23/2023 [facility] Immunizations Immunization Date Immunization Notes Care Provider Bry kaye 08-11-2018 influenza virus vacc ine, unspecified formulation Ean Luu DO Work Phone: [facility] 02-05-2016 tetanus toxoid, redu ana diphtheria toxoid, and acellular pertussis vaccine, adsorbed Ean Luu DO Work Phone: [facility] Work Phone: 09-15-2012 pneumococcal polysaccharide vaccine, 23 valent Ean Luu DO Work Phone: [facility] Payers Date Payer Category Payer Unknown [id number] 2024 Self-pay 2024 Unknown [id number] 2023 Private Health Insurance [id number] 2023 Unknown [id number] 2020 Medicaid [id number] 2018 Unknown [facility] [id number]-Present [phone] [address] [place] [address] WC [id number] 2018 Medicaid [employer] [id number] 2018-Present [phone] [address] [place] [address] Medicaid [id number] 2018 Medicaid [id number] Unknown [id number] Unknown [id number] Unknown [id number] Unknown [id number] Unknown [id number] Social History Date Type Detail Facility Start: 07-09-2022 End: 03-25-2024 Tobacco smoking status VTIS Never smoked tobacco [facility] Work Phone: Start: 12-25-2021 End: 03-24-2025 Alcohol intake Current non-drinker of alcohol (finding) [facility] Start: 06-26-2021 End: 12-31-2022 History SDOH Alcohol Frequency 1 [facility] Start: 06-26-2021 History SDOH Alcohol Std Drinks 98 [facility] Start: 06-26-2021 End: 12-31-2022 History SDOH Social Connections Phone 4 [facility] Start: 06-26-2021 End: 12-31-2022 History SDOH Social Connections [facility] 3 [facility] Start: 06-26-2021 End: 12-31-2022 History SDOH Physical Activity DPW 0 [facility] Start: 06-26-2021 End: 12-31-2022 History SDOH Stress 2 [facility] Start: 02-01-2020 Education 15 [facility] Start: 1975 Sex Assigned At Not on file C [facility] Start: 12-15-2021 End: 07-09-2022 Exposure to SARS-CoV-2 (event) Not sure [facility] Work Phone: Start: 07-09-2022 End: 03-25-2024 Tobacco use and exposure Smokeless tobacco non-user [facility] Start: 12-31-2022 End: 02-13-2023 History of Social function [facility] Start: 12-31-2022 End: 02-13-2023 Social connection and isolation panel [facility] Do you belong to any clubs or organizations such as mu-ism groups, unions, fraternal or athletic groups, or school groups? Yes [facility] Are you now , , , , never or living with a partner? [facility] How often to you hav e a drink containing alcohol? Never [facility] How many standard dr inks containing alcohol do you have on a typical day? Patient does not drink [facility] How hard is it for y ou to pay for the very basics like food, housing, medical care, and heating Not very hard [facility] Do you feel stress - tense, restless, nervous, or anxious, or unable to sleep at night because your mind is troubled all the time - these days [OSQ] Only a little [facility] (I/We) worried bety er (my/our) food would run out before (I/we) got money to buy more. Never true [facility] In the past 12 month s, was there a time when you were not able to pay the mortgage or rent on time? No [facility] How hard is it for y ou to pay for the very basics like food, housing, medical care, and heating Somewhat hard [facility] The food that (I/we) bought just didn't last, and (I/we) didn't have money to get more. DK or Refused [facility] Do you feel stress - tense, restless, nervous, or anxious, or unable to sleep at night because your mind is troubled all the time - these days [OSQ] To some extent [facility] NEGATED: Highlighted rowStart: [id number] History of tobacco use Passive smoker [facility] Medical Equipment Procedure Code Equipment Code Equipment Origin al Text Equipment Identifier Dates [id number], [id number], [id number], [id number] Start: 12-09-2010 End: 03-25-2024 Comment on above: Use as directed. Use as instructed Functional Status Date Assessment Result Facility 03-23-2015 Are you deaf, or do you have serious difficulty hearing No 03/23/2015 3:08 PM EDT Sonja Curiel LPN No [facility] 03-23-2015 Are you blind, or do you have serious difficulty seeing, even when wearing glasses No 03/23/2015 3:08 PM EDT Sonja Curiel LPN No [facility] 03-23-2015 Do you have serious difficulty walking or climbing stairs No 03/23/2015 3:08 PM EDT Sonja Curiel LPN No [facility] 03-23-2015 Do you have difficul ty dressing or bathing No 03/23/2015 3:08 PM EDT Sonja Curiel LPN No [facility] 03-23-2015 Because of a physica l, mental, or emotional condition, do you have difficulty doing errands alone such as visiting a physician's office or shopping No 03/23/2015 3:08 PM EDT Sonja Curiel LPN No [facility] Mental Status Date Assessment Result Facility 03-23-2015 Because of a physica l, mental, or emotional condition, do you have serious difficulty concentrating, remembering, or making decisions No 03/23/2015 3:08 PM EDT Sonja Curiel LPN No [facility] Clinical Notes 01-25-2016 to 03-24-2025 Kisha Hill APRN.QUALITY CONTROL ASSISTANT - 03/24/2025 6:42 PM EDTTelephone Encounter - Sarah Lua LPN - 03/06/2025 12:39 PM EDTTelephone Encounter - Sarah Lua LPN - 03/06/2025 12:39 PM EDTPatient Instructions Note Date & Type Note Facility 03-24-2025 History of Present illness Narrative Triage Note: BP 92/60 Pulse (!) 122 Temp 36.9 C (98.4 F) Resp 20 Wt 122.3 kg (269 lb 10 oz) SpO2 97% BMI 41.00 kg/m . Recheck BP 84/40 HR 125 Patient presented to for c/o itching, lightheaded, dizziness, and doesn't feel well. Two days prior was experiencing diarrhea. He has drank 2 bottles of water today and voiding. Due low BP and tachycardia, recommend patient be seen at nearest ED for further work up. Patient declined squad, will transport to [facility]. Kisha Hill APRN.ONDINA documented in this encounter [facility] 03-06-2025 Telephone encounter Note Prescription Refill Information [...] Lua LPN March 06, 2025 12:40 PM [facility] 03-06-2025 Miscellaneous Notes Prescription Refill Information [...] 2025 12:40 PM documented in this encounter [facility] 12-06-2024 Note HNO ID: [id number] Author: EAN LUU, DO Service: ? Author [...] negative. PE: 12/06/ (more content not included)... [facility] 12-06-2024 History of Present illness Narrative Patient [...] agreed with the plan. Ean Luu DO [address] [place] [address] documented in this encounter [facility] 09-01-2024 Note HNO ID: [id number] Author: EAN LUU DO Service: ? 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 Mr. Interiano has past history [...] No lisinopril (ZESTRIL) (more content not included)... [facility] 09-01-2024 History of Present illness Narrative Patient presents with: F/U 3 Month HPI: oRe Interiano is a 49 year old male who presents to the office today for review of health conditions. Concerns today: Mood, has stressors with his not wanting to work and financial stressors as well as stressors with his brother and daughter Alia. No SI or HI. 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 Mr. Interiano has past history [...] Take 1 tablet by mouth once daily. ONEStartcappsUCH ULTRA2 METER 1 Each by VIA DEVICE [...] with the plan. Ean Luu DO [address] [place] [address] documented in this encounter [facility] 07-15-2024 Telephone encounter Note Prescription Refill [...] Villalobos LPN July 15, 2024 8:00 AM [facility] 07-15-2024 Miscellaneous Notes Prescription Refill Information [...] 2024 8:00 AM documented in this encounter [facility] 05-17-2024 Instructions Ean Luu DO - 05/17/2024 3:46 PM EDT Decrease dose of glipizide to 1/2 tablet with supper, down from 10 mg to 5 mg. EPSOM salt soaks- for 20 minutes in the evening with 1 cup of epsom salts. documented in this encounter [facility] 05-17-2024 Note HNO ID: [id number] Author: EAN LUU DO Service: ? Author [...] up appt for surgical consideration yet with Knitting Teacher ERECTILE DYSFUNCTION, has been tried on multple different medications without a lot of benefit. Was seen by Security Controls Assessor for opinion for testosterone replacement, not interested [...] Use with blood (more content not included)... [facility] 05-17-2024 History of Present illness Narrative Patient [...] up appt for surgical consideration yet with Knitting Teacher ERECTILE DYSFUNCTION, has been tried on multple different medications without a lot of benefit. Was seen by Security Controls Assessor for opinion for testosterone replacement, not interested [...] - ICD9: 374.30, ICD10: H02.402 F/u with oyster farmer, okay for surgical intervention at this time with controlled a1c Ean Luu DO To ER if develops chest pain, shortness of breath, or severe worsening of symptoms. Discussed risks, benefits, alternatives, and potential side effects of medications. Patient expressed understanding and agreed with the plan. Ean Luu DO [address] [place] [address] documented in this encounter [facility] 05-02-2024 Telephone encounter Note Patient returns call and notified that fasting lab orders have been placed. Patient will have completed prior to appointment 05/17. Jaci Silva RN [facility] 05-02-2024 Miscellaneous Notes Patient returns call [...] [place] RN documented in this encounter [facility] 05-02-2024 Telephone encounter Note Called and left a voicemail for the Patient to call back and ask for a nurse to receive the providers message. Philomena Scott RN [facility] 05-02-2024 Telephone encounter Note Fasting labs ordered. Tj Del Angel PA-C 05/02/2024 [facility] 05-02-2024 Telephone encounter Note Patient calling to ask if he needs any labs prior to 3 month follow up appointment on 05/17? Advised PCP out of office this week. He says he is okay to wait for response. Sahara Plaza, RN [facility] 04-19-2024 Telephone encounter Note Prescription Refill [...] Marcum LPN April 19, 2024 10:15 AM [facility] 04-19-2024 Miscellaneous Notes Prescription Refill Information [...] 2024 10:15 AM documented in this encounter [facility] 03-25-2024 Telephone encounter Note Pt informed Lisa Valles MA [facility] 03-25-2024 Miscellaneous Notes Pt informed Lisa Valles MA Would recommend focusing on weight loss until follow-up appointment with Dr. Luu in April to further discuss. Thank you, Jenn Sotelo APRN.QUALITY CONTROL ASSISTANT Patient reports he saw the production line technician, and was informed his testosterone numbers are fine and he doesn't need treatment. Reports he is feeling very frustrated right now. Reports he is having energy problems, sexual problems and doesn't know what to do now. Reports he is working on weight. Please advise patient. documented in this encounter [facility] 03-25-2024 Telephone encounter Note Would recommend focusing on weight loss until follow-up appointment with Dr. Luu in April to further discuss. Thank you, Jenn Sotelo APRN.QUALITY CONTROL ASSISTANT [facility] 03-25-2024 Telephone encounter Note Patient reports he saw the production line technician, and was informed his testosterone numbers are fine and he doesn't need treatment. Reports he is feeling very frustrated right now. Reports he is having energy problems, sexual problems and doesn't know what to do now. Reports he is working on weight. Please advise patient. [facility] 03-25-2024 Note HNO ID: [id number] Author: CATRINA LOFTON MD Service: ? Author [...] For insomnia (Patient (more content not included)... [facility] 03-25-2024 History of Present illness Narrative ENDOCRINOLOGY [...] on File Prior to Visit Medication Sig DEY Storage SystemsUCH ULTRA2 METER 1 Each by VIA DEVICE [...] Abs Lymph 1.00 - 4.00 k/uL 1.45 [place]% % 6.3 Abs [place] <0.87 k/uL 0.56 Eosin% % 3.6 Abs [...] which included preparing to see the patient, [id number] patient care, completing clinical documentation, obtaining and/or reviewing separately obtained history, performing a medically appropriate examination, counseling and educating the patient/family/caregiver, ordering medications, tests, or procedures, and independently interpreting results (not separately reported). Catrina Lofton MD Endocrinology Associate Staff [facility] Specialty & [facility] Endocrinology and Metabolism [place] [phone] documented in this encounter [facility] 03-16-2024 Telephone encounter Note JACE-02/10/24 Labs-01/27/24Jul-05/17/24 Suha Villalobos LPN [facility] 03-16-2024 Miscellaneous Notes JACE-02/10/24 Labs-01/27/24Jul-05/17/24 Suha Villalobos LPN documented in this encounter [facility] 03-07-2024 Telephone encounter Note Prescription Refill [...] Chambers RN March 07, 2024 9:[address] [facility] 03-07-2024 Miscellaneous Notes Prescription Refill Information [...] 2024 9:59 AM documented in this encounter [facility] 03-07-2024 Note HNO ID: [id number] Author: PATRICK RUBIN MD Service: ? Author [...] sugars Patrick Rubin MD 03/07/2024 8:11 AM [facility] 03-07-2024 History of Present illness Narrative POST [...] as needed (nasal dryness). Lancets (FREESTYLE LANCETS) [facility] lancets Use as instructed blood sugar diagnostic (FREESTYLE TEST) [facility] test strip Use as directed. PHYSICAL EXAM: [...] 03/07/2024 8:11 AM documented in this encounter [facility] 02-23-2024 Note HNO ID: [id number] Author: PATRICK RUBIN MD Service: ? Author [...] as needed (nasal dryness). Lancets (FREESTYLE LANCETS) [facility] lancets Use as instructed blood sugar diagnostic (FREESTYLE TEST) [facility] Use as directed. No current [...] PROTOCOL / SAFETY CHECKLIST Procedure to be performed:IANDLucretia Sign in Communication: Completed Time Out: Team Confirms the Correct Patient, Correct Procedure, Correct Site and Site Marking, Correct Position (if applicable). Sign Out Discussion: C (more content not included)... [facility] 02-23-2024 History of Present illness Narrative Incision [...] as needed (nasal dryness). Lancets (FREESTYLE LANCETS) [facility] lancets Use as instructed blood sugar diagnostic (FREESTYLE TEST) [facility] test strip Use as directed. No current [...] 02/23/2024 6:39 PM documented in this encounter [facility] 02-10-2024 History of Present illness Narrative [...] Exam due on 05/31/2022 Covid-19 Vaccine(1 - 24 season) due on 01/14/2025 Pneumococcal Vaccine(2 of [...] Patient agreeable to treatment plan. Jenn Burgos APRN.ONDINA [address] [place] [address] documented in this encounter [facility] 02-10-2024 Note HNO ID: [id number] Author: JENN SOTELO APRN.CNP Service: ? Author Type: Nurse Practitioner Type: [...] as needed (nasal dryness). Lancets (FREESTYLE LANCETS) [facility] lancets Use as instructed blood sugar diagnostic (FREESTYLE TEST) Mis test strip Use as directed. No current facility-administered medications on file prior to visit. Social History Social History (more content not included)... [facility] 02-04-2024 Telephone encounter Note Pt informed, verbalized understanding. Please assist with scheduling. Lisa Valles MA [facility] 02-04-2024 Miscellaneous Notes Pt informed, verbalized understanding. Please assist with scheduling. Lisa Valles MA Please let him know that his testosterone levels are still low normal. Recommend follow up with Urologist or production line technician for opinion if interested in taking testosterone hormone Ean Luu DO documented in this encounter [facility] 02-03-2024 Telephone encounter Note Please let him know that his testosterone levels are still low normal. Recommend follow up with Urologist or production line technician for opinion if interested in taking testosterone hormone Ean Luu DO [facility] 02-01-2024 Telephone encounter Note Patient has [...] Please advise. Thank you. Betzaida Hyman MA. [facility] 02-01-2024 Miscellaneous Notes Patient has been [...] Betzaida Hyman MA. documented in this encounter [facility] 01-27-2024 Telephone encounter Note Noted. Thank you, Jenn Sotelo APRN.QUALITY CONTROL ASSISTANT [facility] 01-27-2024 Miscellaneous Notes Noted. Thank you, Jenn Sotelo APRN.QUALITY CONTROL ASSISTANT Pt called and is notified of providers [...] Abs Lymph 1.00 - 4.00 k/uL 1.45 [place]% % 6.3 Abs [place] <0.87 k/uL 0.56 Eosin% % 3.6 Abs [...] High (L) Low documented in this encounter [facility] 01-26-2024 Telephone encounter Note Pt called and is notified of providers results and instructions. Pt voices understanding. Pt scheduled recheck of testosterone levels. Pt states he does not want to start another medication at this time for his uncontrolled diabetes. Philomena Scott RN [facility] 01-26-2024 Telephone encounter Note Please inform [...] insulin daily as injection Ean Luu DO [facility] 01-26-2024 Telephone encounter Note Patient calling [...] Abs Lymph 1.00 - 4.00 k/uL 1.45 [place]% % 6.3 Abs [place] <0.87 k/uL 0.56 Eosin% % 3.6 Abs [...] ng/mL 0.49 Legend: (H) High (L) Low [facility] 01-15-2024 Note HNO ID: [id number] Author: EAN LUU, DO Service: ? Author [...] by mouth once daily. Lancets (FREESTYLE LANCETS) [facility] lancets Use as instructed blood sugar diagnostic (FREESTYLE TEST) Misc test strip Use as directed. mupirocin (BACTROBAN) 2 % ointment Apply to affected area two times (more content not included)... [facility] 01-15-2024 History of Present illness Narrative Patient [...] by mouth once daily. Lancets (FREESTYLE LANCETS) [facility] lancets Use as instructed blood sugar diagnostic (FREESTYLE TEST) [facility] test strip Use as directed. mupirocin (BACTROBAN) [...] agreed with the plan. Ean Luu DO [address] [place] [address] documented in this encounter [facility] 01-15-2024 Miscellaneous Notes Patient has been identified by name and date of : Yes, Provider Jus Date 01/15/2024 Time 1221 Patient phones for [...] Lisa Valles MA. documented in this encounter [facility] 08-03-2023 Miscellaneous Notes Pharmacy verified in Epic Patient has been identified by name and [...] (288 lb) Not applicable Please advise. Lilly Patel documented in this encounter [facility] 07-16-2023 History of Present illness Narrative [...] TEST) Misc test strip Use as directed. Review of [...] 266.2, ICD10: E53.8 Start on supplement Ean Luu DO To ER if develops chest pain, shortness of breath, or severe worsening of symptoms. Discussed risks, benefits, alternatives, and potential side effects of medications. Patient expressed understanding and agreed with the plan. Ean Luu DO [address] [place] [address] documented in this encounter [facility] 06-10-2023 Miscellaneous Notes Pt notified of instructions below. Pt verbalizes understanding. Imtiaz Marr LPN Please inform patient that his fasting labs and urine albumin are ordered to have drawn before his upcoming visit in office Ean Luu DO Has appt 07/15/23 & asking if he is due for labs? Please advise pt. Radha Loera LPN documented in this encounter [facility] 05-18-2023 Miscellaneous Notes Patient has been identified by name and date of : Yes Requested Prescriptions Pending Prescriptions Disp Refills allopurinol (ZYLOPRIM) 300 mg tablet 90 tablet 3 Sig: Take 1 tablet by mouth once daily. JACE-01/07/23 Labs-10/27/22 NOV-07/15/23 RX INSTRUCTIONS: Patient aware RX will be sent to pharmacy. No need to notify patient. Breannlane Mora documented in this encounter [facility] 04-24-2023 Miscellaneous Notes Patient calls and notified of provider response. Patient voiced understanding. Barb Duarte RN Left message to return call. This isn't a procedure that can be done without insurance coverage due to would then be out of pocket, unless this is what patient is interested in discussing with financial assistance specialist Ean Luu DO Patient reports he had a change of insurance and insurance denied the Bariatric procedure. Asking pcp if you know of any other options for him to get this procedure? Please advise patient. documented in this encounter [facility] 04-02-2023 Miscellaneous Notes Patient has been [...] advise. Deepa Salas documented in this encounter [facility] 02-28-2023 Miscellaneous Notes Noted, will await [...] Requested Prescriptions Signed Prescriptions Disp Refills empagliflozin (KARENDIANCE) 25 mg tablet 30 tablet 5 Sig: Take 1 tablet by mouth once daily. Take 1 tablet once daily in the morning Authorizing Provider: EAN LUU DO Called patient per phone note 02/02 advised no longer has caresource but chart no been updated. Received PA request from [employer] for Farxiga. Patient verified new insurance listed below. [facility] [place] [id number] Group [id number] Member services# Farxiga is not covered and [...] Shara Patel Ma documented in this encounter [facility] 02-25-2023 Miscellaneous Notes Order signed for pressure adjust. documented in this encounter [facility] 02-24-2023 Miscellaneous Notes Images from the original note were not included. documented in this encounter [facility] 02-09-2023 Miscellaneous Notes Pt informed, verbalized [...] called and went to the pharmacy to picker packer medication Januvia and was told pt no longer has [employer] insurance. Asking for something cheaper. Please advise . Mckenna Hopkins LPN documented in this encounter [facility] 01-07-2023 History of Present illness Narrative [...] as needed (nasal dryness). Lancets (FREESTYLE LANCETS) [facility] lancets Use as instructed blood sugar diagnostic (FREESTYLE TEST) [facility] Use as directed. diclofenac (VOLTAREN [...] with the plan. Ean Luu DO [address] [place] [address] documented in this encounter [facility] 01-07-2023 Miscellaneous Notes Patient has been [...] Patrick Leroy LPN documented in this encounter [facility] 01-06-2023 History of Present illness Narrative VIRTUAL VISIT PROGRESS NOTE This is a virtual visit using G2Link video visit. It required patient-provider interaction for the medical decision making as documented below. I have communicated my name and active licensure. The patient's identity and physical location were verified at the time of this visit. Either the patient or their legal contracts representative has been informed of the risks [...] told several month wait for supplies from [employer] controls operator molded goods. The following he has followed up with [...] which included preparing to see the patient, [id number]-ue-[id number] patient care, completing clinical documentation, counseling and educating the patient/family/caregiver, communicating with other HCPs (not separately reported), communicating results to the patient/family/caregiver, and care coordination (not separately reported) Sathish Martínez MD 01/06/2023 9:02 AM documented in this encounter [facility] 12-10-2022 Miscellaneous Notes Called and left patient a voicemail and sent [email or web address] message Patient called regarding his CPAP machine. He spoke to the [facility] and they told him it would take 6-8 months to receive. Patient's insurance is running out at the end of the month. Patient asking if you can please contact the [facility]. documented in this encounter [facility] 12-01-2022 History of Present illness Narrative Sleep Study Check-In Documentation Date: December 01, 2022 Name: Roe Interiano Patient was accompanied by Self. Location: [place] Latex allergy: No Tape allergy: No Current medications were reviewed with the patient:Yes Sleep aid taken by patient for the sleep study: [place] of sleep aid: Not Applicable Procedure was explained to the patient and all questions were answered. PAP treatment discussed and shown to patient: Yes If PAP used enter mask info: Mask Name Ramon Make F&P MaskTypeNasal Mask SizeMedium Chin Sharp Used No Knowledge Program (KP): KP was not completed in epic by patient and accepted Study type: PAP titration Adverse Event: No (If yes create a new abstract) Comments: Patient was advised to follow up with their ordering provider regarding test results Carlota Shabazz documented in this encounter [facility] 11-24-[address] - [...] pre-op liquid diet: Slim Fast Advanced Nutrition, [place] Breakfast Essentials Light Start mixed with fat [...] + 1 iron soft chew www.bariatricfusion.com - [place] [facility]: 1 Bariatric Multivitamin (capsule or chewable) and 3167-9648 mg Calcium Citrate per day www.Tailored - Bariatric Choice: 1 Bariatric Multivitamin capsule and 1484-7488 mg Calcium Citrate per day OR 4 Complete Multivitamin chewables per day www.bariatricchoice.com - Bariatric Advantage: 2 Multivitamin chewables and 3 Calcium Citrate chewables per day www.bariatricadvantage.com - Celebrate: 2 Multivitamin (chewables) OR 3 Multivitamin (capsules) PLUS 3 Calcium Citrate soft chews per day AND Iron (chewable, capsule, or soft chew for a total of 45-60 mg per day) www.Managed ObjectsebrateSmalltowns.FOUNDD - Bariatric Pal: 1 Bariatric Multivitamin capsule and 0025-7980 mg Calcium Citrate per day www.[employer]bariatricpal.FOUNDD/collec tions/bariatric-vitamins Take multivitamin with iron 2 hours apart from calcium citrate, and take each dose of calcium 4 hours apart from each other Pre-op goal weight: 276 pounds Protein needs: 92 gm per day Nutrition Monitoring & Evaluation: 1-2 lbs wt loss/week Need for Follow up: 1 month, scheduling [phone] documented in this encounter [facility] 11-24-2022 Miscellaneous Notes Pt said he needed to think it over and he will discuss it with provider at his December appointment. Please inform patient that I would like him to have a colonoscopy for colon cancer screening Ean Luu DO documented in this encounter [facility] 11-24-2022 History of Present illness Narrative [facility] Nutrition Therapy: Virtual Consult - Initial [...] Your Guide to Surgery by next session [email or web address] [email or web address]?la= en 2. Do not skip meals. 3. Use protein shake 1x per day to replace any skipped meals or for breakfast. Aim for shakes ~150-200 calories, ~15-20 grams of protein, <5 grams of total sugar. Here are a few examples of approved options for the 2 week pre-op liquid diet: Slim Fast Advanced Nutrition, [place] Breakfast Essentials Light Start mixed with fat [...] 1 Bariatric Multivitamin (capsule or chewable) and 6246-3465 mg Calcium Citrate per day www.[email or web address] Backlinks.FOUNDD - Bariatric Choice: 1 Bariatric Multivitamin capsule and 8365-3501 mg Calcium Citrate per day OR 4 Complete Multivitamin chewables per day www.bariatricchoice.com - Bariatric Advantage: 2 Multivitamin chewables and 3 Calcium Citrate chewables per day www.bariatricadvantage.FOUNDD - Celebrate: 2 Multivitamin (chewables) OR 3 Multivitamin (capsules) PLUS 3 Calcium Citrate soft chews per day AND Iron (chewable, capsule, or soft chew for a total of 45-60 mg per day) www.TracelyticsteSnapwire.FOUNDD - Bariatric Pal: 1 Bariatric Multivitamin capsule and 0232-9858 mg Calcium Citrate per day www.[employer]bariatricpal.FOUNDD/lavellc [place]/bariatric-vitamins Take multivitamin with iron 2 hours apart from calcium citrate, and take each dose of calcium 4 hours apart from each other Pre-op goal weight: 276 pounds Protein needs: 92 gm per day Nutrition Monitoring & Evaluation: 1-2 lbs wt loss/week Need for Follow up: 1 month, scheduling [phone] Patient presents for initial nutrition consult in [...] job and not including any routine exercise. [place] body weight: 169 lbs. Excess body weight: 119 lbs. Goal weight pre-op: 276 lbs. Protein needs estimated: 92 gm (1.2 g protein/kg IBW) Patient meets the National Institutes of Health guidelines for weight loss surgery and [facility] [place] [facility] [place] therefore is required to complete 6 months of Nutrition Intervention for clearance for surgery. Today is visit 2 out of 6 (Alexus 10/24/22, Ariana 11/24/22). Patient's symptoms are: Weight [...] TIME: 3:14 PM documented in this encounter [facility] 11-19-2022 Instructions Margaret Fofana APRN.QUALITY CONTROL ASSISTANT - 11/19/2022 2:35 PM EST PLAN: - Will start Auto Bilevel PAP - I will have a prescription sent to a [employer] company - [employer] - who will be calling you in the next 1-2 weeks or so. Please call them directly or us if you do not hear from them in this time frame. - You should be eligible for new supplies approximately every 3-6 months, depending on your insurance coverage. - If your mask doesn't fit well, call the [employer] company before 30 days are up to get a new mask without an additional charge. - Insurance requires regular usage and periodic office follow ups for PAP therapy, to continue to cover supplies. INSURANCE REQUIREMENTS: - Your insurance requires a [id number] follow up visit within a 31-90 day [...] the central scheduling system for the [facility] at [phone]. - If you are a [facility] patient, call [phone] for questions - Any other locations you have seen me at, please call [phone] opt [phone] for questions. - May use Message My Doc through My Chart for questions. - [facility] website: [email or web address].org/sleep About Your PAP Therapy Continuous Positive Airway [...] mask and headgear as instructed by the nuclear cardiology technologist or respiratory therapist. The mask should [...] thoroughly and dry with paper towels. Avoid databases computer consultant that contain fragrance or conditioners, as these [...] machine still fails to operate, please call [phone] or your home care company for assistance. [...] to last 9-12 months. Refer to the owner/photographer s manual for more information. Important Safety [...] follow to watch a PAP education video: [email or web address] e_care/services/home_respiratory_ therapy.aspx http://www.youtube.com/watch?v=pe J_epDGzEw http://my.[facility].org/bere rological_institute/sleep-disorde -center/treatment-services/pap- therapy.aspx documented in this encounter [facility] 11-19-2022 History of Present illness Narrative Images from the original note were not included. [facility] New Patient Evaluation PATIENT NAME: Roe Interiano DATE OF SERVICE: November 19, 2022 CONSULTING PROVIDER: Reba Vaughan [address] [facility] [address] REASON FOR CONSULT: Reba Vaughan sends the [...] He states he was on BiPAP through [employer], but insurance changed and no longer receiving [...] Obesity, Class Iii, Bmi 40-49.9 (Morbid Obesity) (Hcc) Acute Bursitis of Right Shoulder Essential Hypertension Uncontrolled Type 2 Diabetes Mellitus Without Complication, Without Long-Term Current Use of Insulin Mikki (Obstructive Sleep Apnea) Ed (Erectile Dysfunction) of Organic Origin Diabetes Mellitus Type 2 With Ketoacidosis, Uncontrolled (Hcc) Uncontrolled Type 2 Diabetes Mellitus With Hyperglycemia (Hcc) Chronic Insomnia Finger Pain, Left Chronic Pain of Both Shoulders Actinic Keratosis Carpal Tunnel Syndrome, Bilateral Vitamin D Deficiency Gerd Without Esophagitis Diabetes Mellitus Type 2, Controlled, Without Complications (Hcc) Lung Nodules Allergies As of Date: 11/19/2022 [...] Obesity, Class III, BMI 40-49.9 (morbid obesity) ([facility]) Roe Interiano is a 47 year old [...] He states he was on BiPAP through [employer], but insurance changed and no longer receiving supplies. He had a mask that was improper fit and just ultimately stopped use. Discussed with patient: the physiology of OSAS, medical conditions associated with OSAS (DM, HTN, CAD, Depression, Stroke, Headache, FL) and treatment options (UPPP, Dental appliances, CPAP, Inspire). Advised patient to avoid activities that could harm self or others when tired/sleepy, including driving and/or operating heavy machinery. - PAP titration study per insurance requirement and assess need for BiPAP therapy - Will start Auto Bilevel PAP after results of PAP titration - I will have a prescription sent to a [employer] company - [employer] - who will be calling you in the next 1-2 weeks or so. Please call them directly or us if you do not hear from them in this time frame. - You should be eligible for new supplies approximately every 3-6 months, depending on your insurance coverage. - If your mask doesn't fit well, call the [employer] company before 30 days are up to get a new mask without an additional charge. - Insurance requires regular usage and periodic office follow ups for PAP therapy, to continue to cover supplies. INSURANCE REQUIREMENTS: - Your insurance requires a [id number] follow up visit within a 31-90 day [...] which included preparing to see the patient, cslh-xe-lops patient care, completing clinical documentation, obtaining and/or reviewing separately obtained history, performing a medically appropriate examination, counseling and educating the patient/family/caregiver, ordering medications, tests, or procedures, and communicating results to the patient/family/caregiver. documented in this encounter [facility] 11-13-2022 History of Present illness Narrative [...] 2022 10:29 AM documented in this encounter [facility] 11-04-2022 History of Present illness Narrative November 04, 2022 Standing PSG Orders signed in the last 90 days None Future PSG Orders signed in the last 90 days Ordered Auth. provider CONSULT TO SLEEP MEDICINE - ADULT [[id number]] 10/24/22 Reba Vaughan APRN.CNP Assoc. diagnoses: MIKKI (obstructive sleep apnea) [G47.33] Q: Does consulting provider have [facility] Epic access?: A: Yes All Prior Sleep Studies [...] (HSAT) Special instructions: None-follow laboratory protocol [facility] Staff Note: I have read the above protocol, edited as needed, and agree to the plan. Lon Gentile MD 8:58 AM, 11/05/2022 Nomad# [id number] , date shipped out 11/04/22 Tracking mailout: [phone] [id number] Tracking return: [id number] 2021 [id number] November 04, 2022 An order has been received for Home Sleep Apnea Test (HSAT) from [facility] Staff. Visit prep complete. Comments :No The sleep study is scheduled for 11/05/22. Insurance: Payor: [facility] MEDICAID / Plan: [facility] [employer]ICA[facility] / Product Type: Medicaid / Payer/Plan Subscr Sex Relation Sub. Ins. ID Effective Group Num 1. [facility] ME* ROE INTERIANO 1975 Male Self [id number] 10/29/22 [facility] [address] 2. [facility] GEN* ROE INTERIANO 1975 Male Self [phone] 05/19/18 [address], [facility] [address] Macarena Mosley documented in this encounter [facility] 11-04-2022 History and physical note BARIATRIC SURGERY NEW PATIENT EVALUATION Date: November 04, 2022 Time: 8:06 AM Name: Roe Interiano CHIEF COMPLAINT: initial evaluation for metabolic and bariatric surgery This is a virtual visit using G2Link video visit. It required patient-provider interaction for [...] as needed (nasal dryness). Lancets (FREESTYLE LANCETS) [facility] lancets Use as instructed blood sugar diagnostic (FREESTYLE TEST) [facility] test strip Use as directed. No current [...] which included preparing to see the patient, ujvy-qd-sjgc patient care, completing clinical documentation, obtaining and/or reviewing separately obtained history, counseling and educating the patient/family/caregiver, communicating with other HCPs (not separately reported), communicating results to the patient/family/caregiver, and care coordination (not separately reported) Bariatric and Advanced Laparoscopic Surgery SIGNATURE: Sathish Martínez MD PATIENT NAME: Roe Interiano DATE: November 04, 2022 TIME: 8:06 AM documented in this encounter [facility] 10-30-2022 History of Present illness Narrative VIRTUAL VISIT PROGRESS NOTE This is a virtual visit using G2Link video visit. 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 Pets: outside dogs Current Outpatient Medications Medication [...] Shara Upton MD documented in this encounter [facility] 10-27-2022 History of Present illness Narrative Radiology [...] 2022 9:11 AM documented in this encounter [facility] 10-27-2022 History of Present illness Narrative [...] 2022 9:09 AM documented in this encounter [facility] 10-24-2022 History of Present illness Narrative [...] to have the procedure with Dr. Sathish Martínez. Weight History: He reports a family history [...] exercise? None Stress test: yes: when 12/2020 WN Functional Status: Do heavy work around the house, such as scrubbing floors, lifting or moving heavy furniture (8.00 METs) Patient denies any chest pain or undue shortness of breath with the above physical activity. 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 Snoring : [...] Did not tolerate CPAP No history of FL, COPD, asthma, peptic ulcer disease, dyslipidemia, hypothyroidism, [...] -CXR, EKG, RUQ US order placed today -10/03 nutritional counseling completed today -HSAT order and consult to sleep medicine placed today I spent a total of 45 minutes on the date of the service which included preparing to see the patient, mudd-vy-lryi patient care, completing clinical documentation, obtaining and/or reviewing separately obtained history, performing a medically appropriate examination, counseling and educating the patient/family/caregiver, ordering medications, tests, or procedures, and independently interpreting results (not separately reported). Reba Vaughan APRN.ONDINA documented in this encounter [facility] 10-01-2022 History of Present illness Narrative [...] Date Value 12/28/2021 508 06/21/2021 539 Mr. Interaino indicates a history of hypertension and states [...] arise. - Discussed diabetic education issues of nurse monitoring diabetic complications, hyperglycemic symptoms, diet, medications- side [...] agreed with the plan. Ean Luu DO [address] [place] [address] documented in this encounter [facility] 07-14-2022 Miscellaneous Notes Have head no response from insurance. Called the pharmacy and rx was ran through pts insurance with no copay and no issues. It appears PA was able to be completed via covermymeds. LUISA INTERIANO ([place]: [id number]) - [id number] metFORMIN HCl ER 750MG er tablets Status: Sent to Plan Created: July 07, 2022 Sent: July 10, 2022 Open Aniket as not sent Archive [facility] has changed their PA process. This new process isn't going well. Unable to complete PA electronically. Please call insurance company for a PA for his glucophage XR medication. States this is needed due to insurance changes. Ean Luu DO documented in this encounter [facility] 07-09-2022 History of Present illness Narrative [...] as needed (nasal dryness). [facility] Use as instructed blood sugar diagnostic [...] with the plan. Ean Luu DO [address] [place] [address] documented in this encounter [facility] 05-05-2022 Miscellaneous Notes Patient has been identified by name and date of : Yes Pending Prescriptions Disp Refills VITAMIN B COMPLEX TABLET 30 tablet 11 Sig: Take 1 tablet by mouth once daily. TAVIA: No RX INSTRUCTIONS: Patient aware RX will be sent to pharmacy. No need to notify patient. Breann Mora documented in this encounter [facility] 01-29-2022 Miscellaneous Notes Patient has been [...] Barb Duarte RN documented in this encounter [facility] 12-30-2021 Miscellaneous Notes Spoke with patient. [...] Ean Luu DO documented in this encounter [facility] 12-25-2021 History of Present illness Narrative [...] arise. - Discussed diabetic education issues of nurse monitoring diabetic complications, hyperglycemic symptoms, diet, medications- side [...] with the plan. Ean Luu DO [address] [place] [address] documented in this encounter [facility] 01-25-2016 History of Past i llness Narrative Problem Noted Date Resolved Date Sebaceous cyst 01/25/2016 11/27/2016 Skin tag 01/25/2016 11/27/2016 Cutaneous abscess of chest wall 09/17/2015 11/27/2016 Gout 12/19/2009 11/27/2016 Dysmetabolic syndrome X 10/10/2008 11/28/19 17 documented as of this encounter (statuses as of 12/25/2021) [facility] History of Past illness Narrative* Problem Noted Date Resolved Date Sebaceous cyst 01/25/2016 11/27/2016 Skin tag 01/25/2016 11/27/2016 Cutaneous abscess of chest wall 09/17/2015 11/27/2016 Gout 12/19/2009 11/27/2016 Dysmetabolic syndrome X 10/10/2008 11/28/19 17 documented as of this encounter (statuses as of 12/30/2021) [address]2016 History of Past illness Narrative* Problem Noted Date Resolved Date Sebaceous cyst 01/25/2016 11/27/2016 Skin tag 01/25/2016 11/27/2016 Cutaneous abscess of chest wall 09/17/2015 11/27/2016 Gout 12/19/2009 11/27/2016 Dysmetabolic syndrome X 10/10/2008 11/28/19 17 documented as of this encounter (statuses as of 01/29/2022) [address]2016 History of Past illness Narrative* Problem Noted Date Resolved Date Sebaceous cyst 01/25/2016 11/27/2016 Skin tag 01/25/2016 11/27/2016 Cutaneous abscess of chest wall 09/17/2015 11/27/2016 Gout 12/19/2009 11/27/2016 Dysmetabolic syndrome X 10/10/2008 11/28/19 17 documented as of this encounter (statuses as of 05/07/2022) [address]2016 History of Past illness Narrative* Problem Noted Date Resolved Date Sebaceous cyst 01/25/2016 11/27/2016 Skin tag 01/25/2016 11/27/2016 Cutaneous abscess of chest wall 09/17/2015 11/27/2016 Gout 12/19/2009 11/27/2016 Dysmetabolic syndrome X 10/10/2008 11/28/19 17 documented as of this encounter (statuses as of 07/10/2022) [place] [address]29-2016 History of Past illness Narrative* Problem Noted Date Resolved Date Sebaceous cyst 01/25/2016 11/27/2016 Skin tag 01/25/2016 11/27/2016 Cutaneous abscess of chest wall 09/17/2015 11/27/2016 Gout 12/19/2009 11/27/2016 Dysmetabolic syndrome X 10/10/2008 11/28/19 17 documented as of this encounter (statuses as of 07/14/2022) [address]2016 History of Past illness Narrative* Problem Noted Date Resolved Date Sebaceous cyst 01/25/2016 11/27/2016 Skin tag 01/25/2016 11/27/2016 Cutaneous abscess of chest wall 09/17/2015 11/27/2016 Gout 12/19/2009 11/27/2016 Dysmetabolic syndrome X 10/10/2008 11/28/19 17 documented as of this encounter (statuses as of 10/03/2022) [facility] History of Past illness Narrative* Problem Noted Date Resolved Date Sebaceous cyst 01/25/2016 11/27/2016 Skin tag 01/25/2016 11/27/2016 Cutaneous abscess of chest wall 09/17/2015 11/27/2016 Gout 12/19/2009 11/27/2016 Dysmetabolic syndrome X 10/10/2008 11/28/19 17 documented as of this encounter (statuses as of 10/24/2022) [facility] History of Past illness Narrative* Problem Noted Date Resolved Date Sebaceous cyst 01/25/2016 11/27/2016 Skin tag 01/25/2016 11/27/2016 Cutaneous abscess of chest wall 09/17/2015 11/27/2016 Gout 12/19/2009 11/27/2016 Dysmetabolic syndrome X 10/10/2008 11/28/19 17 documented as of this encounter (statuses as of 10/28/2022) [facility] History of Past illness Narrative* Problem Noted Date Resolved Date Sebaceous cyst 01/25/2016 11/27/2016 Skin tag 01/25/2016 11/27/2016 Cutaneous abscess of chest wall 09/17/2015 11/27/2016 Gout 12/19/2009 11/27/2016 Dysmetabolic syndrome X 10/10/2008 11/28/19 17 documented as of this encounter (statuses as of 10/29/2022) [facility] History of Past illness Narrative* Problem Noted Date Resolved Date Sebaceous cyst 01/25/2016 11/27/2016 Skin tag 01/25/2016 11/27/2016 Cutaneous abscess of chest wall 09/17/2015 11/27/2016 Gout 12/19/2009 11/27/2016 Dysmetabolic syndrome X 10/10/2008 11/28/19 17 documented as of this encounter (statuses as of 10/30/2022) [facility] History of Past illness Narrative* Problem Noted Date Resolved Date Sebaceous cyst 01/25/2016 11/27/2016 Skin tag 01/25/2016 11/27/2016 Cutaneous abscess of chest wall 09/17/2015 11/27/2016 Gout 12/19/2009 11/27/2016 Dysmetabolic syndrome X 10/10/2008 11/28/19 17 documented as of this encounter (statuses as of 11/04/2022) [facility] History of Past illness Narrative* Problem Noted Date Resolved Date Sebaceous cyst 01/25/2016 11/27/2016 Skin tag 01/25/2016 11/27/2016 Cutaneous abscess of chest wall 09/17/2015 11/27/2016 Gout 12/19/2009 11/27/2016 Dysmetabolic syndrome X 10/10/2008 11/28/19 17 documented as of this encounter (statuses as of 11/05/2022) [facility] History of Past illness Narrative* Problem Noted Date Resolved Date Sebaceous cyst 01/25/2016 11/27/2016 Skin tag 01/25/2016 11/27/2016 Cutaneous abscess of chest wall 09/17/2015 11/27/2016 Gout 12/19/2009 11/27/2016 Dysmetabolic syndrome X 10/10/2008 11/28/19 17 documented as of this encounter (statuses as of 11/19/2022) [facility] History of Past illness Narrative* Problem Noted Date Resolved Date Sebaceous cyst 01/25/2016 11/27/2016 Skin tag 01/25/2016 11/27/2016 Cutaneous abscess of chest wall 09/17/2015 11/27/2016 Gout 12/19/2009 11/27/2016 Dysmetabolic syndrome X 10/10/2008 11/28/19 17 documented as of this encounter (statuses as of 11/22/2022) [facility] History of Past illness Narrative* Problem Noted Date Resolved Date Sebaceous cyst 01/25/2016 11/27/2016 Skin tag 01/25/2016 11/27/2016 Cutaneous abscess of chest wall 09/17/2015 11/27/2016 Gout 12/19/2009 11/27/2016 Dysmetabolic syndrome X 10/10/2008 11/28/19 17 documented as of this encounter (statuses as of 11/24/2022) [facility] History of Past illness Narrative* Problem Noted Date Resolved Date Sebaceous cyst 01/25/2016 11/27/2016 Skin tag 01/25/2016 11/27/2016 Cutaneous abscess of chest wall 09/17/2015 11/27/2016 Gout 12/19/2009 11/27/2016 Dysmetabolic syndrome X 10/10/2008 11/28/19 17 documented as of this encounter (statuses as of 11/24/2022) [facility] History of Past illness Narrative* Problem Noted Date Resolved Date Sebaceous cyst 01/25/2016 11/27/2016 Skin tag 01/25/2016 11/27/2016 Cutaneous abscess of chest wall 09/17/2015 11/27/2016 Gout 12/19/2009 11/27/2016 Dysmetabolic syndrome X 10/10/2008 11/28/19 17 documented as of this encounter (statuses as of 12/01/2022) [facility] History of Past illness Narrative* Problem Noted Date Resolved Date Sebaceous cyst 01/25/2016 11/27/2016 Skin tag 01/25/2016 11/27/2016 Cutaneous abscess of chest wall 09/17/2015 11/27/2016 Gout 12/19/2009 11/27/2016 Dysmetabolic syndrome X 10/10/2008 11/28/19 17 documented as of this encounter (statuses as of 12/10/2022) [facility] History of Past illness Narrative* Problem Noted Date Resolved Date Sebaceous cyst 01/25/2016 11/27/2016 Skin tag 01/25/2016 11/27/2016 Cutaneous abscess of chest wall 09/17/2015 11/27/2016 Gout 12/19/2009 11/27/2016 Dysmetabolic syndrome X 10/10/2008 11/28/19 17 documented as of this encounter (statuses as of 12/29/2022) [facility] History of Past illness Narrative* Problem Noted Date Resolved Date Sebaceous cyst 01/25/2016 11/27/2016 Skin tag 01/25/2016 11/27/2016 Cutaneous abscess of chest wall 09/17/2015 11/27/2016 Gout 12/19/2009 11/27/2016 Dysmetabolic syndrome X 10/10/2008 11/28/19 17 documented as of this encounter (statuses as of 01/07/2023) [address]2016 History of Past illness Narrative* Problem Noted Date Resolved Date Sebaceous cyst 01/25/2016 11/27/2016 Skin tag 01/25/2016 11/27/2016 Cutaneous abscess of chest wall 09/17/2015 11/27/2016 Gout 12/19/2009 11/27/2016 Dysmetabolic syndrome X 10/10/2008 11/28/19 17 documented as of this encounter (statuses as of 01/08/2023) [facility] History of Past illness Narrative* Problem Noted Date Resolved Date Sebaceous cyst 01/25/2016 11/27/2016 Skin tag 01/25/2016 11/27/2016 Cutaneous abscess of chest wall 09/17/2015 11/27/2016 Gout 12/19/2009 11/27/2016 Dysmetabolic syndrome X 10/10/2008 11/28/19 17 documented as of this encounter (statuses as of 01/08/2023) [facility] History of Past illness Narrative* Problem Noted Date Resolved Date Sebaceous cyst 01/25/2016 11/27/2016 Skin tag 01/25/2016 11/27/2016 Cutaneous abscess of chest wall 09/17/2015 11/27/2016 Gout 12/19/2009 11/27/2016 Dysmetabolic syndrome X 10/10/2008 11/28/19 17 documented as of this encounter (statuses as of 02/10/2023) [facility] History of Past illness Narrative* Problem Noted Date Resolved Date Sebaceous cyst 01/25/2016 11/27/2016 Skin tag 01/25/2016 11/27/2016 Cutaneous abscess of chest wall 09/17/2015 11/27/2016 Gout 12/19/2009 11/27/2016 Dysmetabolic syndrome X 10/10/2008 11/28/19 17 documented as of this encounter (statuses as of 02/24/2023) [facility] History of Past illness Narrative* Problem Noted Date Resolved Date Sebaceous cyst 01/25/2016 11/27/2016 Skin tag 01/25/2016 11/27/2016 Cutaneous abscess of chest wall 09/17/2015 11/27/2016 Gout 12/19/2009 11/27/2016 Dysmetabolic syndrome X 10/10/2008 11/28/19 17 documented as of this encounter (statuses as of 02/25/2023) [address]2016 History of Past illness Narrative* Problem Noted Date Resolved Date Sebaceous cyst 01/25/2016 11/27/2016 Skin tag 01/25/2016 11/27/2016 Cutaneous abscess of chest wall 09/17/2015 11/27/2016 Gout 12/19/2009 11/27/2016 Dysmetabolic syndrome X 10/10/2008 11/28/19 17 documented as of this encounter (statuses as of 04/02/2023) [address]2016 History of Past illness Narrative* Problem Noted Date Diagnosed Date Resolved Date Sebaceous cyst 01/25/2016 11/27/2016 Skin tag 01/25/2016 11/27/2016 Cutaneous abscess of chest wall 09/17/2015 11/27/2016 Gout 12/19/2009 11/27/2016 Dysmetabolic syndrome X 10/10/20080 10/2016 documented as of this encounter (statuses as of 04/24/2023) [address]2016 History of Past illness Narrative* Problem Noted Date Diagnosed Date Resolved Date Sebaceous cyst 01/25/2016 11/27/2016 Skin tag 01/25/2016 11/27/2016 Cutaneous abscess of chest wall 09/17/2015 11/27/2016 Gout 12/19/2009 11/27/2016 Dysmetabolic syndrome X 10/10/200810/2016 documented as of this encounter (statuses as of 05/19/2023) [facility] History of Past illness Narrative* Problem Noted Date Diagnosed Date Resolved Date Sebaceous cyst 01/25/2016 11/27/2016 Skin tag 01/25/2016 11/27/2016 Cutaneous abscess of chest wall 09/17/2015 11/27/2016 Gout 12/19/2009 11/27/2016 Dysmetabolic syndrome X 10/10/20080 10/2016 documented as of this encounter (statuses as of 06/10/2023) [address]2016 History of Past illness Narrative* Problem Noted Date Diagnosed Date Resolved Date Sebaceous cyst 01/25/2016 11/27/2016 Skin tag 01/25/2016 11/27/2016 Cutaneous abscess of chest wall 09/17/2015 11/27/2016 Gout 12/19/2009 11/27/2016 Dysmetabolic syndrome X 10/10/200810/2016 documented as of this encounter (statuses as of 07/04/2023) [facility] History of Past illness Narrative* Problem Noted Date Diagnosed Date Resolved Date Sebaceous cyst 01/25/2016 11/27/2016 Skin tag 01/25/2016 11/27/2016 Cutaneous abscess of chest wall 09/17/2015 11/27/2016 Gout 12/19/2009 11/27/2016 Dysmetabolic syndrome X 10/10/200810/2016 documented as of this encounter (statuses as of 07/16/2023) [facility] History of Past illness Narrative* Problem Noted Date Diagnosed Date Resolved Date Sebaceous cyst 01/25/2016 11/27/2016 Skin tag 01/25/2016 11/27/2016 Cutaneous abscess of chest wall 09/17/2015 11/27/2016 Gout 12/19/2009 11/27/2016 Dysmetabolic syndrome X 10/10/200810/2016 documented as of this encounter (statuses as of 08/02/2023) [facility] History of Past illness Narrative* Problem Noted Date Diagnosed Date Resolved Date Sebaceous cyst 01/25/2016 11/27/2016 Skin tag 01/25/2016 11/27/2016 Cutaneous abscess of chest wall 09/17/2015 11/27/2016 Gout 12/19/2009 11/27/2016 Dysmetabolic syndrome X 10/10/200810/2016 documented as of this encounter (statuses as of 08/02/2023) [facility] History of Past illness Narrative* Problem Noted Date Diagnosed Date Resolved Date Sebaceous cyst 01/25/2016 11/27/2016 Skin tag 01/25/2016 11/27/2016 Cutaneous abscess of chest wall 09/17/2015 11/27/2016 Gout 12/19/2009 11/27/2016 Dysmetabolic syndrome X 10/10/200810/2016 documented as of this encounter (statuses as of 08/02/2023) [place] [address]-29-2016 History of Past illness Narrative* Problem Noted Date Diagnosed Date Resolved Date Sebaceous cyst 01/25/2016 11/27/2016 Skin tag 01/25/2016 11/27/2016 Cutaneous abscess of chest wall 09/17/2015 11/27/2016 Gout 12/19/2009 11/27/2016 Dysmetabolic syndrome X 10/10/200810/2016 documented as of this encounter (statuses as of 08/04/2023) [facility] History of Past illness Narrative* Problem Noted Date Diagnosed Date Resolved Date Sebaceous cyst 01/25/2016 11/27/2016 Skin tag 01/25/2016 11/27/2016 Cutaneous abscess of chest wall 09/17/2015 11/27/2016 Gout 12/19/2009 11/27/2016 Dysmetabolic syndrome X 10/10/200810/2016 documented as of this encounter (statuses as of 01/15/2024) [address]2016 History of Past illness Narrative* Problem Noted Date Diagnosed Date Resolved Date Sebaceous cyst 01/25/2016 11/27/2016 Skin tag 01/25/2016 11/27/2016 Cutaneous abscess of chest wall 09/17/2015 11/27/2016 Gout 12/19/2009 11/27/2016 Dysmetabolic syndrome X 10/10/200810/2016 documented as of this encounter (statuses as of 01/16/2024) [facility] [place] [facility]* Diagnosis Uncontrolled type 2 diabetes mellitus with hyperglycemia (HCC)- Primary Hyperlipidemia with target LDL less than 100 Other and unspecified hyperlipidemia Essential hypertension Unspecified essential hypertension Obesity, Class III, BMI 40-49.9 (morbid obesity) (HCC) Morbid obesity Actinic keratosis [facility] Essential hypertension Unspecified essential hypertension [facility] Diagnosis Fatigue, unspecified type [facility] Diagnosis Uncontrolled type 2 diabetes mellitus with hyperglycemia (HCC)- Primary GERD without esophagitis Esophageal reflux Fatigue, unspecified type Essential hypertension Unspecified essential hypertension Hyperlipidemia with target LDL less than 100 Other and unspecified hyperlipidemia Vitamin D deficiency Unspecified vitamin D deficiency Obesity, Class III, BMI 40-49.9 (morbid obesity) (HCC) Morbid obesity documented [facility]* Diagnosis Uncontrolled type 2 diabetes mellitus with hyperglycemia (HCC)- Primary Hyperlipidemia with target LDL less than 100 Other and unspecified hyperlipidemia Carpal tunnel syndrome, bilateral Carpal tunnel syndrome Fatigue, unspecified type Essential hypertension Unspecified essential hypertension Obesity, Class III, BMI 40-49.9 (morbid obesity) (HCC) Morbid obesity documented [facility]* Diagnosis Class 3 severe obesity with [...] 2 diabetes mellitus without complication, unspecified whether nurse monitoring insulin use (HCC) documented in [facility]* Diagnosis Abnormal chest x-ray- Primary Other nonspecific abnormal finding of lung field documented in this [facility]* Diagnosis Class 3 severe obesity with serious comorbidity and body mass index (BMI) of 40.0 to 44.9 in adult, unspecified obesity type (HCC) documented in this encounter [facility]* Diagnosis Lung nodules- Primary Other nonspecific abnormal finding of lung field Morbid obesity (HCC) Morbid obesity documented in this encounter [facility]* Diagnosis Body mass index 40.0-44.9, adult [...] without long-term current use of insulin (HCC) Class 3 severe obesity with serious comorbidity and body mass index (BMI) of 40.0 to 44.9 in adult, unspecified obesity type (HCC) MIKKI (obstructive sleep apnea) Obstructive sleep apnea (adult) (pediatric) documented in this encounter [facility]* Diagnosis MIKKI (obstructive sleep apnea)- Primary Obstructive sleep apnea (adult) (pediatric) Primary hypertension Unspecified essential hypertension Obesity, Class III, BMI 40-49.9 (morbid obesity) (HCC) Morbid obesity [facility] Diagnosis Lung nodules- Primary Other nonspecific abnormal finding of lung field [facility] Diagnosis Obesity, Class III, BMI 40-49.9 (morbid obesity) (HCC)- Primary Morbid obesity Controlled type 2 diabetes mellitus without complication, without long-term current use of insulin (HCC) Dietary counseling and surveillance Dietary surveillance and counseling [facility] [place] [facility] Diagnosis Lung nodules- Primary Other nonspecific abnormal finding of lung field [facility] Diagnosis Obesity, Class III, BMI 40-49.9 (morbid obesity) (HCC)- Primary Morbid obesity Controlled type 2 diabetes mellitus without complication, without long-term current use of insulin (HCC) MIKKI (obstructive sleep apnea) Obstructive sleep apnea (adult) (pediatric) documented [facility] [place] [facility]* Diagnosis Essential hypertension Unspecified essential hypertension [facility] Diagnosis Uncontrolled type 2 diabetes [...] apnea (adult) (pediatric) [facility] [place] [facility]* Diagnosis Uncontrolled type 2 diabetes mellitus with hyperglycemia (HCC) [facility] Diagnosis Gout, unspecified cause, unspecified chronicity, unspecified site [facility] [place] [facility]* Diagnosis Vitamin B12 deficiency- Primary Other B-complex deficiencies Uncontrolled type 2 diabetes mellitus with hyperglycemia (HCC) Essential hypertension Unspecified essential hypertension Gout, unspecified cause, unspecified chronicity, unspecified site Diabetes mellitus type 2 with ketoacidosis, uncontrolled (HCC) Type II or unspecified type diabetes mellitus with ketoacidosis, uncontrolled Hypercholesteremia Pure hypercholesterolemia [facility] [place] [facility]* Diagnosis Uncontrolled type 2 diabetes mellitus with hyperglycemia (HCC)- Primary Trigeminal neuralgia of left side of face Essential hypertension Unspecified essential hypertension Vitamin B12 deficiency Other B-complex deficiencies [facility]* Diagnosis Class 3 severe obesity with serious comorbidity and body mass index (BMI) of 40.0 to 44.9 in adult, unspecified obesity type (HCC) [facility]* Diagnosis Lung nodules Other nonspecific abnormal finding of lung field [facility]* Diagnosis Class 3 severe obesity with serious comorbidity and body mass index (BMI) of 40.0 to 44.9 in adult, unspecified obesity type (HCC) [facility]* Diagnosis Hyperlipidemia with target LDL less than 100 Other and unspecified hyperlipidemia [facility]* Diagnosis Essential hypertension Unspecified essential hypertension [facility]* Diagnosis Uncontrolled type 2 diabetes [...] neoplasm of prostate [facility]* Diagnosis Low testosterone- Primary Other testicular hypofunction [facility]* Diagnosis Hyperlipidemia with target LDL less than 100 Other and unspecified hyperlipidemia [facility]* Diagnosis Essential hypertension Unspecified essential hypertension Hyperlipidemia with target LDL less than 100 Other and unspecified hyperlipidemia [facility]* Diagnosis Cutaneous abscess of other site- Primary Uncontrolled type 2 diabetes mellitus with hyperglycemia (HCC) Dysuria [facility]* Diagnosis Uncontrolled type 2 diabetes mellitus with hyperglycemia (HCC) [facility]* Diagnosis Infected sebaceous cyst- Primary Sebaceous cyst Cutaneous abscess of other site [facility]* Diagnosis Infected cyst of skin- Primary Sebaceous cyst Infected sebaceous cyst Sebaceous cyst [facility]* Diagnosis Uncontrolled type 2 diabetes mellitus with hyperglycemia (HCC)- Primary [facility]* Diagnosis Uncontrolled type 2 diabetes mellitus with hyperglycemia (HCC) [facility] [place] [facility]* Diagnosis Low testosterone in male- Primary [facility] [place] [facility]* Diagnosis Gout, unspecified cause, unspecified chronicity, unspecified site [facility] [place] [facility]* Diagnosis Hyperlipidemia with target LDL less than 100- Primary Other and unspecified hyperlipidemia Diabetes mellitus type 2 with ketoacidosis, uncontrolled (HCC) Type II or unspecified type diabetes mellitus with ketoacidosis, uncontrolled [facility] [place] [facility]* Diagnosis Uncontrolled [...] ptosis of eyelid [facility] [place] [facility]* Diagnosis Hyperlipidemia with target LDL less than 100 Other and unspecified hyperlipidemia [facility] [place] [facility]* Diagnosis MIKKI (obstructive sleep apnea)- Primary Obstructive sleep apnea (adult) (pediatric) Uncontrolled type 2 diabetes mellitus with hyperglycemia (HCC) Primary hypertension Unspecified essential hypertension Hyperlipidemia with target LDL less than 100 Other and unspecified hyperlipidemia Vitamin B12 deficiency Other B-complex deficiencies Ptosis, left eyelid Unspecified ptosis of eyelid Fatigue, unspecified type [facility]* Diagnosis Uncontrolled type 2 diabetes mellitus with hyperglycemia (HCC)- Primary Hyperlipidemia with target LDL less than 100 Other and unspecified hyperlipidemia Essential hypertension Unspecified essential hypertension Primary hypertension Unspecified essential hypertension Vitamin B12 deficiency Other B-complex deficiencies [facility] [place] [facility]* Diagnosis Uncontrolled type 2 diabetes mellitus with hyperglycemia (HCC) [facility] [place] [facility]* Diagnosis Hypotension, unspecified hypotension type- Primary Tachycardia Tachycardia, unspecified documented in this encounter [facility] for referral (narrative)* Outpatient Procedure (Routine) - Closed Specialty Diagnoses / Procedures Referred By Contgibson t Referred To [facility] Diagnoses Class 3 severe obesity with serious comorbidity and body mass index (BMI) of 40.0 to 44.9 in adult, unspecified obesity type (HCC) Procedures ECG COMPLETE ECG ROUTINE ECG W/LEAST 12 LDS W/I&R Reba Vaughan APRN.QUALITY CONTROL ASSISTANT [address] [place] [id number] [facility] [place] [address] [facility] [place] [id number] Referral ID Status Reason Start Date Expiration Date V isits Requested Visits Authorized [id number] Closed Auto-Generate d Referral 10/24/2022 10/24/2023 1 1 [facility] for referral (narrative)* Diagnostic Procedure Only (Routine) - Closed Specialty Diagnoses / Procedures Referred By Contac t Referred To Contact US IMAGING Diagnoses Class 3 severe obesity with serious comorbidity and body mass index (BMI) of 40.0 to 44.9 in adult, unspecified obesity type (HCC) Procedures US ABD RT UPPER QUADRANT US ABDOMINAL REAL TIME W/IMAGE LIMITED Reba Vaughan APRN.QUALITY CONTROL ASSISTANT [address] [place] [id number] [facility] Referral ID Status Reason Start Date Expiration Date V isits Requested Visits Authorized [id number] Closed Auto-Generate d Referral 10/24/2022 11/23/2023 1 1 [facility] for visit Narrative* Outpatient Procedure (Routine) - Closed Specialty Diagnoses / Procedures Referred By Contac t Referred To Contact [facility] Diagnoses Class 3 severe obesity with serious comorbidity and body mass index (BMI) of 40.0 to 44.9 in adult, unspecified obesity type (HCC) Procedures ECG COMPLETE ECG ROUTINE ECG W/LEAST 12 [facility] W/I&R Reba Vaughan, TORIE.QUALITY CONTROL ASSISTANT [address] [place] [address] [facility] [place] [address] [place], [place] [address]Lucretia [place] [phone] Referral ID Status Reason Start Date Expiration Date V isits Requested Visits Authorized [id number] Closed Auto-Generate d Referral 10/24/2022 10/24/2023 1 1 [facility] Reason for Referral Specialty Diagnoses / Procedures Referred By Contac t Referred To Contact Diagnoses Diabetes mellitus type 2 with ketoacidosis, uncontrolled (HCC) Ean Luu, DO [address] [place] [address] Referral ID Status Reason Start Date Expiration Date Visits Re quested Visits Authorized [id number] Closed 1 1 Referral ID Status Reason Start Date Expiration Date Visits Re quested Visits Authorized [id number] Closed 1 1 Specialty Diagnoses / Procedures Referred By Contac t Referred To Contact Diagnoses MIKKI (obstructive sleep apnea) Procedures CONSULT TO SLEEP MEDICINE - ADULT OFFICE/OUTPATIENT [facility] 60-74 MINUTES Reba Vaughan, GI TECHNICIAN.QUALITY CONTROL ASSISTANT [address] [place] [address] Referral ID Status Reason Start Date Expiration Date Visits Requested Visits Authorized [id number] Authorized PCP Requested Referral 10/24/2022 10/24/2023 1 [...] HRT RATE&O2 SAT EFFORT UNATT Reba Vaughan, GI TECHNICIAN.QUALITY CONTROL ASSISTANT [address] [place] [address] Neurological [place] [id number] [place] [address] Referral ID Status Reason Start Date Expiration Date Visits Requested Visits Authorized [id number] Authorized Auto-Generat ed Referral 10/24/2022 10/24/2023 1 1 Specialty Diagnoses / Procedures Referred By Contac t Referred To Contact US IMAGING Diagnoses Class 3 severe obesity with serious comorbidity and body mass index (BMI) of 40.0 to 44.9 in adult, unspecified obesity type (HCC) Procedures US ABD RT UPPER QUADRANT US ABDOMINAL REAL TIME W/IMAGE LIMITED Reba Vaughan, GI TECHNICIAN.QUALITY CONTROL ASSISTANT [address] [place] [address] Us Imaging Referral ID Status Reason Start Date Expiration Date Visits Requested Visits Authorized [id number] Authorized Auto-Generat ed Referral 10/24/2022 11/23/2023 1 1 Specialty Diagnoses / Procedures Referred By Contac t Referred To Contact [facility] Diagnoses Class 3 severe obesity with serious comorbidity and body mass index (BMI) of 40.0 to 44.9 in adult, unspecified obesity type (HCC) Procedures ECG COMPLETE ECG ROUTINE ECG W/LEAST 12 LDS W/I&R Reba Vaughan, TORIE.QUALITY CONTROL ASSISTANT [address] [place] [address] [facility] [place] [address] [place] [address] Referral ID Status Reason Start Date Expiration Date Visits Requested Visits Authorized [id number] Pending Review Auto-Generat ed Referral 10/24/2022 10/24/2023 1 1 Specialty Diagnoses / Procedures Referred By Contac t Referred To Contact CT IMAGING Diagnoses Lung nodules Procedures CT CHEST WO IVCON DIAGNOSTIC COMPUTED TOMOGRAPHY THORAX W/O Shara Pretty MD [address] [place] [address] Ct Imaging Referral ID Status Reason Start Date Expiration Date Visits Requested Visits Authorized [id number] Pending Review Auto-Generat ed Referral 10/30/2022 11/29/2023 1 1 Referral ID Status Reason Start Date Expiration Date Visits Requested Visits Authorized [id number] Pending Review Auto-Generat ed Referral 02/09/2023 01/28/2024 1 1 Specialty Diagnoses / Procedures Referred By Contac t Referred To Contact CT IMAGING Diagnoses Lung nodules Procedures CT CHEST WO IVCON DIAGNOSTIC COMPUTED TOMOGRAPHY THORAX W/O Shara Pretty MD [address] [facility] [address] [place] [address] Referral ID Status Reason Start Date Expiration Date V isits Requested Visits Authorized [id number] Denied Auto-Generat ed Referral Patient Cleared - Admin/Chairm an/Director advise to proceed or did not respond 10/30/2022 12/29/2022 1 0 Specialty Diagnoses / Procedures Referred By Contac t Referred To Contact General Surgery Diagnoses Cutaneous abscess of other site Procedures CONSULT TO GENERAL SURGERY OFFICE/OUTPATIENT [facility] MDM 60 MINUTES Jenn Sotelo APRN.QUALITY CONTROL ASSISTANT [address] [place] [address] Referral ID Status Reason Start Date Expiration Date Visits Requested Visits Authorized [id number] Authorized PCP Requested Referral 02/10/2024 02/09/2025 1 1 Advance Directives Documents on File Type Date 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(s) Advance Directive(s) 12/25/2020 4:50 PM Advance Directive(s) 02/16/2020 11:03 AM Advance Directive(s) 02/10/2020 10:50 AM Advance Directive(s) 05/19/2018 4:30 PM Documents on File Type Date 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 Directive(s) Advance Directive(s) 12/25/2020 [...] or prosecute any alcohol or drug abuse patient.[facility] the event this information is protected by the Federal Confidentiality of Alcohol and Drug Abuse Patient Records regulations: The Federal rules restrict any use of the information to criminally investigate or prosecute any alcohol or drug abuse patient.[facility] the event this information is protected by the Federal Confidentiality of Alcohol and Drug Abuse Patient Records regulations: The Federal rules restrict any use of the information to criminally investigate or prosecute any alcohol or drug abuse patient.[facility] the event this information is protected by the Federal Confidentiality of Alcohol and Drug Abuse Patient Records regulations: The Federal rules restrict any use of the information to criminally investigate or prosecute any alcohol or drug abuse patient.[facility] the event this information is protected by the Federal Confidentiality of Alcohol and Drug Abuse Patient Records regulations: The Federal rules restrict any use of the information to criminally investigate or prosecute any alcohol or drug abuse patient.[facility] the event this information is protected by the Federal Confidentiality of Alcohol and Drug Abuse Patient Records regulations: The Federal rules restrict any use of the information to criminally investigate or prosecute any alcohol or drug abuse patient.[facility] the event this information is protected by the Federal Confidentiality of Alcohol and Drug Abuse Patient Records regulations: The Federal rules restrict any use of the information to criminally investigate or prosecute any alcohol or drug abuse patient.[facility] the event this information is protected by the Federal Confidentiality of Alcohol and Drug Abuse Patient Records regulations: The Federal rules restrict any use of the information to criminally investigate or prosecute any alcohol or drug abuse patient.[facility] the event this information is protected by the Federal Confidentiality of Alcohol and Drug Abuse Patient Records regulations: The Federal rules restrict any use of the information to criminally investigate or prosecute any alcohol or drug abuse patient.[facility] HospitalIn the event this information is protected by the Federal Confidentiality of Alcohol and Drug Abuse Patient Records regulations: The Federal rules restrict any use of the information to criminally investigate or prosecute any alcohol or drug abuse patient.[facility] HospitalIn the event this information is protected by the Federal Confidentiality of Alcohol and Drug Abuse Patient Records regulations: The Federal rules restrict any use of the information to criminally investigate or prosecute any alcohol or drug abuse patient.[facility] Hospital[facility] the event this information is protected by the Federal Confidentiality of Alcohol and Drug Abuse Patient Records regulations: The Federal rules restrict any use of the information to criminally investigate or prosecute any alcohol or drug abuse patient.[facility] HospitalIn the event this information is protected by the Federal Confidentiality of Alcohol and Drug Abuse Patient Records regulations: The Federal rules restrict any use of the information to criminally investigate or prosecute any alcohol or drug abuse patient.[facility] HospitalIn the event this information is protected by the Federal Confidentiality of Alcohol and Drug Abuse Patient Records regulations: The Federal rules restrict any use of the information to criminally investigate or prosecute any alcohol or drug abuse patient.[facility] HospitalIn the event this information is protected by the Federal Confidentiality of Alcohol and Drug Abuse Patient Records regulations: The Federal rules restrict any use of the information to criminally investigate or prosecute any alcohol or drug abuse patient.[facility] HospitalIn the event this information is protected by the Federal Confidentiality of Alcohol and Drug Abuse Patient Records regulations: The Federal rules restrict any use of the information to criminally investigate or prosecute any alcohol or drug abuse patient.[facility] HospitalIn the event this information is protected by the Federal Confidentiality of Alcohol and Drug Abuse Patient Records regulations: The Federal rules restrict any use of the information to criminally investigate or prosecute any alcohol or drug abuse patient.[facility] HospitalIn the event this information is protected by the Federal Confidentiality of Alcohol and Drug Abuse Patient Records regulations: The Federal rules restrict any use of the information to criminally investigate or prosecute any alcohol or drug abuse patient.[facility] Hospital[facility] the event this information is protected by the Federal Confidentiality of Alcohol and Drug Abuse Patient Records regulations: The Federal rules restrict any use of the information to criminally investigate or prosecute any alcohol or drug abuse patient.[facility] HospitalIn the event this information is protected by the Federal Confidentiality of Alcohol and Drug Abuse Patient Records regulations: The Federal rules restrict any use of the information to criminally investigate or prosecute any alcohol or drug abuse patient.[facility] HospitalIn the event this information is protected by the Federal Confidentiality of Alcohol and Drug Abuse Patient Records regulations: The Federal rules restrict any use of the information to criminally investigate or prosecute any alcohol or drug abuse patient.[facility] HospitalIn the event this information is protected by the Federal Confidentiality of Alcohol and Drug Abuse Patient Records regulations: The Federal rules restrict any use of the information to criminally investigate or prosecute any alcohol or drug abuse patient.[facility] HospitalIn the event this information is protected by the Federal Confidentiality of Alcohol and Drug Abuse Patient Records regulations: The Federal rules restrict any use of the information to criminally investigate or prosecute any alcohol or drug abuse patient.[facility] HospitalIn the event this information is protected by the Federal Confidentiality of Alcohol and Drug Abuse Patient Records regulations: The Federal rules restrict any use of the information to criminally investigate or prosecute any alcohol or drug abuse patient.[facility] HospitalIn the event this information is protected by the Federal Confidentiality of Alcohol and Drug Abuse Patient Records regulations: The Federal rules restrict any use of the information to criminally investigate or prosecute any alcohol or drug abuse patient.[facility] HospitalIn the event this information is protected by the Federal Confidentiality of Alcohol and Drug Abuse Patient Records regulations: The Federal rules restrict any use of the information to criminally investigate or prosecute any alcohol or drug abuse patient.[facility] HospitalIn the event this information is protected by the Federal Confidentiality of Alcohol and Drug Abuse Patient Records regulations: The Federal rules restrict any use of the information to criminally investigate or prosecute any alcohol or drug abuse patient.[facility] HospitalIn the event this information is protected by the Federal Confidentiality of Alcohol and Drug Abuse Patient Records regulations: The Federal rules restrict any use of the information to criminally investigate or prosecute any alcohol or drug abuse patient.[facility] HospitalIn the event this information is protected by the Federal Confidentiality of Alcohol and Drug Abuse Patient Records regulations: The Federal rules restrict any use of the information to criminally investigate or prosecute any alcohol or drug abuse patient.[facility] HospitalIn the event this information is protected by the Federal Confidentiality of Alcohol and Drug Abuse Patient Records regulations: The Federal rules restrict any use of the information to criminally investigate or prosecute any alcohol or drug abuse patient.[facility] HospitalIn the event this information is protected by the Federal Confidentiality of Alcohol and Drug Abuse Patient Records regulations: The Federal rules restrict any use of the information to criminally investigate or prosecute any alcohol or drug abuse patient.[facility] HospitalIn the event this information is protected by the Federal Confidentiality of Alcohol and Drug Abuse Patient Records regulations: The Federal rules restrict any use of the information to criminally investigate or prosecute any alcohol or drug abuse patient.[facility] HospitalIn the event this information is protected by the Federal Confidentiality of Alcohol and Drug Abuse Patient Records regulations: The Federal rules restrict any use of the information to criminally investigate or prosecute any alcohol or drug abuse patient.[facility] HospitalIn the event this information is protected by the Federal Confidentiality of Alcohol and Drug Abuse Patient Records regulations: The Federal rules restrict any use of the information to criminally investigate or prosecute any alcohol or drug abuse patient.[facility] HospitalIn the event this information is protected by the Federal Confidentiality of Alcohol and Drug Abuse Patient Records regulations: The Federal rules restrict any use of the information to criminally investigate or prosecute any alcohol or drug abuse patient.[facility] HospitalIn the event this information is protected by the Federal Confidentiality of Alcohol and Drug Abuse Patient Records regulations: The Federal rules restrict any use of the information to criminally investigate or prosecute any alcohol or drug abuse patient.[facility] HospitalIn the event this information is protected by the Federal Confidentiality of Alcohol and Drug Abuse Patient Records regulations: The Federal rules restrict any use of the information to criminally investigate or prosecute any alcohol or drug abuse patient.[facility] HospitalIn the event this information is protected by the Federal Confidentiality of Alcohol and Drug Abuse Patient Records regulations: The Federal rules restrict any use of the information to criminally investigate or prosecute any alcohol or drug abuse patient.[facility] HospitalIn the event this information is protected by the Federal Confidentiality of Alcohol and Drug Abuse Patient Records regulations: The Federal rules restrict any use of the information to criminally investigate or prosecute any alcohol or drug abuse patient.[facility] HospitalIn the event this information is protected by the Federal Confidentiality of Alcohol and Drug Abuse Patient Records regulations: The Federal rules restrict any use of the information to criminally investigate or prosecute any alcohol or drug abuse patient.[facility] HospitalIn the event this information is protected by the Federal Confidentiality of Alcohol and Drug Abuse Patient Records regulations: The Federal rules restrict any use of the information to criminally investigate or prosecute any alcohol or drug abuse patient.[facility] HospitalIn the event this information is protected by the Federal Confidentiality of Alcohol and Drug Abuse Patient Records regulations: The Federal rules restrict any use of the information to criminally investigate or prosecute any alcohol or drug abuse patient.[facility] HospitalIn the event this information is protected by the Federal Confidentiality of Alcohol and Drug Abuse Patient Records regulations: The Federal rules restrict any use of the information to criminally investigate or prosecute any alcohol or drug abuse patient.[facility] HospitalIn the event this information is protected by the Federal Confidentiality of Alcohol and Drug Abuse Patient Records regulations: The Federal rules restrict any use of the information to criminally investigate or prosecute any alcohol or drug abuse patient.[facility] HospitalIn the event this information is protected by the Federal Confidentiality of Alcohol and Drug Abuse Patient Records regulations: The Federal rules restrict any use of the information to criminally investigate or prosecute any alcohol or drug abuse patient.[facility] HospitalIn the event this information is protected by the Federal Confidentiality of Alcohol and Drug Abuse Patient Records regulations: The Federal rules restrict any use of the information to criminally investigate or prosecute any alcohol or drug abuse patient.[facility] HospitalIn the event this information is protected by the Federal Confidentiality of Alcohol and Drug Abuse Patient Records regulations: The Federal rules restrict any use of the information to criminally investigate or prosecute any alcohol or drug abuse patient.[facility] HospitalIn the event this information is protected by the Federal Confidentiality of Alcohol and Drug Abuse Patient Records regulations: The Federal rules restrict any use of the information to criminally investigate or prosecute any alcohol or drug abuse patient.[facility] HospitalIn the event this information is protected by the Federal Confidentiality of Alcohol and Drug Abuse Patient Records regulations: The Federal rules restrict any use of the information to criminally investigate or prosecute any alcohol or drug abuse patient.[facility] HospitalIn the event this information is protected by the Federal Confidentiality of Alcohol and Drug Abuse Patient Records regulations: The Federal rules restrict any use of the information to criminally investigate or prosecute any alcohol or drug abuse patient.[facility] HospitalIn the event this information is protected by the Federal Confidentiality of Alcohol and Drug Abuse Patient Records regulations: The Federal rules restrict any use of the information to criminally investigate or prosecute any alcohol or drug abuse patient.[facility] HospitalIn the event this information is protected by the Federal Confidentiality of Alcohol and Drug Abuse Patient Records regulations: The Federal rules restrict any use of the information to criminally investigate or prosecute any alcohol or drug abuse patient.[facility] HospitalIn the event this information is protected by the Federal Confidentiality of Alcohol and Drug Abuse Patient Records regulations: The Federal rules restrict any use of the information to criminally investigate or prosecute any alcohol or drug abuse patient.[facility] HospitalIn the event this information is protected by the Federal Confidentiality of Alcohol and Drug Abuse Patient Records regulations: The Federal rules restrict any use of the information to criminally investigate or prosecute any alcohol or drug abuse patient.[facility] HospitalIn the event this information is protected by the Federal Confidentiality of Alcohol and Drug Abuse Patient Records regulations: The Federal rules restrict any use of the information to criminally investigate or prosecute any alcohol or drug abuse patient.[facility] HospitalIn the event this information is protected by the Federal Confidentiality of Alcohol and Drug Abuse Patient Records regulations: The Federal rules restrict any use of the information to criminally investigate or prosecute any alcohol or drug abuse patient.[facility] HospitalIn the event this information is protected by the Federal Confidentiality of Alcohol and Drug Abuse Patient Records regulations: The Federal rules restrict any use of the information to criminally investigate or prosecute any alcohol or drug abuse patient.[facility] HospitalIn the event this information is protected by the Federal Confidentiality of Alcohol and Drug Abuse Patient Records regulations: The Federal rules restrict any use of the information to criminally investigate or prosecute any alcohol or drug abuse patient.[facility] Reason for Visit (unrecogniz ed section [...] Evaluation Specialty Diagnoses / Procedures Referred By Qasim t Referred To Contact Diagnoses MIKKI (obstructive sleep apnea) Procedures CONSULT TO SLEEP MEDICINE - ADULT OFFICE/OUTPATIENT NEW HIGH MDM 60-74 MINUTES Reba Vaughan, TORIE.QUALITY CONTROL ASSISTANT [address] [place] [address] Referral ID Status Reason Start Date Expiration Date V isits Requested Visits Authorized [id number] Closed PCP Requested Referral 10/24/2022 10/24/2023 1 [...] Refill Request 05/18/2023 Reason Comments Insurance Authorization [facility] Reason Comments 6 Month Exam Reason Comments Radiology CT Specialty Diagnoses / Procedures Referred By Contac t Referred To Contact CT IMAGING Diagnoses Lung nodules Procedures CT CHEST WO IVCON DIAGNOSTIC COMPUTED TOMOGRAPHY THORAX W/O Shara Pretty MD [address] [place] [address] [facility] [place] [facility] Referral ID Status Reason Start Date Expiration Date V isits Requested Visits Authorized [id number] Denied Auto-Generat ed Referral Patient Cleared - [...] ABDOMINAL REAL TIME W/IMAGE LIMITED Reba Vaughan, GI TECHNICIAN.QUALITY CONTROL ASSISTANT [address] [id number] [place] [address] Referral ID Status Reason Start Date Expiration Date V isits Requested Visits Authorized [id number] Closed Auto-Generate d Referral 10/24/2022 11/23/2023 1 [...] site Procedures CONSULT TO GENERAL SURGERY OFFICE/OUTPATIENT NEW HIGH MDM 60 MINUTES Jenn Sotelo, GI TECHNICIAN.QUALITY CONTROL ASSISTANT [address] [place] [address] Referral ID Status Reason Start Date Expiration Date V isits Requested Visits Authorized [id number] Closed PCP Requested Referral 02/10/2024 02/09/2025 1 1 Reason Comments Follow Up 10-14 day L groin ab scess Reason Onset Date Comments Refill Request 03/07/2024 Reason Onset Date Comments Refill Request 03/16/2024 Reason Comments Patient Update Reason Comments Low Testosterone Reason Onset Date Comments Refill Request 04/19/2024 Reason Onset Date Comments Refill Request 07/14/2024 Reason Onset Date Comments Refill Request 03/05/2025 Reason Comments Derm Problem Lower legs red and i tchy x2 days, diarrhea x2 days Care Teams (unrecognized sec tion and content) Customer Success Advocate Relationship Specialty Start Date End Date Ean Luu, DO [address] [place] [address] PCP - General Family Practice 05/03/13 Customer Success Advocate Relationship Specialty Start Date End Date Ean Luu DO [address] [facility] [place] [address] PCP - General Family Practice 05/03/13 Customer Success Advocate Relationship Specialty Start Date End Date Ean Luu DO [address] [facility] [address] PCP - General Family Practice 05/03/13 Customer Success Advocate Relationship Specialty Start Date End Date Ean Luu, DO [address] [facility] [place] [address] PCP - General Family Practice 05/03/13 Customer Success Advocate Relationship Specialty Start Date End Date Ean Luu DO [address] [place] [address] PCP - General Family Medicine 05/03/13 Customer Success Advocate Relationship Specialty Start Date End Date Ean Luu DO [address] [place] [address] PCP - General Family Medicine 05/03/13 Customer Success Advocate Relationship Specialty Start Date End Date Ean Luu, DO [address] [place] [address] PCP - General Family Medicine 05/03/13 Customer Success Advocate Relationship Specialty Start Date End Date Ean Luu, DO [address] [place] [address] PCP - General Family Medicine 05/03/13 Customer Success Advocate Relationship Specialty Start Date End Date Ean Luu, DO [address] [place] [address] PCP - General Family Medicine 05/03/13 Customer Success Advocate Relationship Specialty Start Date End Date Ean Luu, DO [address] [place] [address] PCP - General Family Medicine 05/03/13 Customer Success Advocate Relationship Specialty Start Date End Date Ean Luu, DO [address] [place] [address] PCP - General Family Medicine 05/03/13 Customer Success Advocate Relationship Specialty Start Date End Date Ean Luu, DO [address] [place] [address] PCP - General Family Medicine 05/03/13 Customer Success Advocate Relationship Specialty Start Date End Date Ean Luu, DO [address] [place] [address] PCP - General Family Medicine 05/03/13 Customer Success Advocate Relationship Specialty Start Date End Date Ean Luu, DO [address] [place] [address] PCP - General Family Medicine 05/03/13 Customer Success Advocate Relationship Specialty Start Date End Date Ean Luu, DO [address] [place] [address] PCP - General Family Medicine 05/03/13 Customer Success Advocate Relationship Specialty Start Date End Date Ean Luu, DO [address] [facility] [place] [address] PCP - General Family Medicine 05/03/13 Customer Success Advocate Relationship Specialty Start Date End Date Ean Luu, DO [address] [facility] [place] [address] PCP - General Family Medicine 05/03/13 Customer Success Advocate Relationship Specialty Start Date End Date Ean Luu, DO [address] [facility] [place] [address] PCP - General Family Medicine 05/03/13 Customer Success Advocate Relationship Specialty Start Date End Date Ean Luu, DO [address] [facility] [place] [address] PCP - General Family Medicine 05/03/13 Customer Success Advocate Relationship Specialty Start Date End Date Ean Luu DO [address] [facility] [place] [address] PCP - General Family Medicine 05/03/13 Customer Success Advocate Relationship Specialty Start Date End Date Ean Luu DO [address] [facility] [place] [address] PCP - General Family Medicine 05/03/13 Customer Success Advocate Relationship Specialty Start Date End Date Ean Luu DO [address] [facility] [place] [address] PCP - General Family Medicine 05/03/13 Customer Success Advocate Relationship Specialty Start Date End Date Ean Luu DO [address] [facility] [place] [address] PCP - General Family Medicine 05/03/13 Customer Success Advocate Relationship Specialty Start Date End Date Ean Luu, [address] [place] [address] PCP - General Family Medicine 05/03/13 Customer Success Advocate Relationship Specialty Start Date End Date Ean Luu, [address] [place] [address] PCP - General Family Medicine 05/03/13 Customer Success Advocate Relationship Specialty Start Date End Date Ean Luu DO [address] [place] [address] PCP - General Family Medicine 05/03/13 Customer Success Advocate Relationship Specialty Start Date End Date Ean Luu DO [address] [place] [address] PCP - General Family Medicine 05/03/13 Customer Success Advocate Relationship Specialty Start Date End Date Ean Luu DO [address] [place] [address] PCP - General Family Medicine 05/03/13 Customer Success Advocate Relationship Specialty Start Date End Date Ean Luu DO [address] [place] [address] PCP - General Family Medicine 05/03/13 Customer Success Advocate Relationship Specialty Start Date End Date Ean Luu DO [address] [place] [address] PCP - General Family Medicine 05/03/13 Customer Success Advocate Relationship Specialty Start Date End Date Ean Luu DO [address] [place] [address] PCP - General Family Medicine 05/03/13 Customer Success Advocate Relationship Specialty Start Date End Date Ean Luu DO [address] [facility] [place] [address] PCP - General Family Medicine 05/03/13 Customer Success Advocate Relationship Specialty Start Date End Date Ean Luu DO [address] [facility] [place] [address] PCP - General Family Medicine 05/03/13 Customer Success Advocate Relationship Specialty Start Date End Date Ean Luu DO [address] [place] [address] PCP - General Family Medicine 05/03/13 Customer Success Advocate Relationship Specialty Start Date End Date Ean Luu DO [address] [place] [address] PCP - General Family Medicine 05/03/13 Customer Success Advocate Relationship Specialty Start Date End Date Ean Luu DO [address] [place] [address] PCP - General Family Medicine 05/03/13 Customer Success Advocate Relationship Specialty Start Date End Date Ean Luu DO [address] [place] [address] PCP - General Family Medicine 05/03/13 Customer Success Advocate Relationship Specialty Start Date End Date Ean Luu DO [address] [facility] [place] [address] PCP - General Family Medicine 05/03/13 Customer Success Advocate Relationship Specialty Start Date End Date Ean Luu DO [address] [place] [address] PCP - General Family Medicine 05/03/13 Customer Success Advocate Relationship Specialty Start Date End Date Ean Luu DO [address] [place] [address] PCP - General Family Medicine 05/03/13 Jenn Sotelo, GI TECHNICIAN.QUALITY CONTROL ASSISTANT [address] [place] [address] Top Dyeing Machine Tender Family Medicine 09/04/24 Alli Mullen, GI TECHNICIAN.QUALITY CONTROL ASSISTANT [address] [place] [address] Top Dyeing Machine Tender Family Medicine 09/04/24 Customer Success Advocate Relationship Specialty Start Date End Date Ean Luu DO [address] [place] [address] PCP - General Family Medicine 05/03/13 Alli Mullen, GI TECHNICIAN.QUALITY CONTROL ASSISTANT [address] [place] [address] Top Dyeing Machine Tender Family Medicine 09/04/24 Customer Success Advocate Relationship Specialty Start Date End Date Ean Luu DO [address] [place] [address] PCP - General Family Medicine 05/03/13 Alli Mullen, GI TECHNICIAN.QUALITY CONTROL ASSISTANT [address] [place] [address] Top Dyeing Machine Tender Family Medicine 09/04/24 Prerna Vasquez, GI TECHNICIAN.QUALITY CONTROL ASSISTANT [address] [place] [address] Top Dyeing Machine Tender Family Medicine 03/13/25 (unrecognized sect ion and content) No Status Records FoundNo Status Records FoundNo Status Records Found INFORMATION SOURCE (unrecogn ized section and content) DATE CREATED AUTHOR 12/05/2022 [facility] DATE CREATED AUTHOR AUTHOR'S ORGANIZ ATION 12/09/2024 [facility] DATE CREATED AUTHOR AUTHOR'S ORGANIZ ATION 12/13/2024 [facility] FOR RECORDS PERTAINING TO PATIENTS WHO [...] BE BASED ON THE PRIMARY CLINICAL RECORDS. [employer] provides no warranty or guarantee of the accuracy or completeness of information in this document.
[2025-03-25 00:47] LABS: Lactic Acid 1.9 mmol/L (0.0-2.0)
[2025-03-25 01:16] LABS: BETA-HYDROXYBUTYRATE 0.5 mmol/L (0.0-0.3); Magnesium 1.3 mg/dL (1.5-2.2); Phosphorus 2.1 mg/dL (2.7-4.5)
--- OUTSIDE RECORDS SUMMARY | 2025-03-25 01:32 | XMS RPT_ITS | CCD ---
Author Organization [facility] Care Team Providers Care Automotive Assembler Name Role Phone Jus CHISHOLM Ean L Primary Care Provider [phone] MARGARET FOFANA Referring Unavailable LUU, EAN L Primary Care Unavailable LUU, EAN L Primary Care Unavailable REBA VAUGHAN Referring Unavailable Luu DO Ean Francheska Primary Care Provider Jus CHISHOLM Ean Francheska Primary Care Provider Deepak FINANCIAL AID.Jenn [place] Unavailable Otoniel FINANCIAL AID.Alli [place] Unavailable EAN LUU Attending Unavailable LUU, [...] LuuEan Referring Unavailable Pedro STUARTNPrerna LOWRY Unavailable [phone] Allergies Allergy Classification Reported Allergen(s) Allergy Type Date of Onset Reaction(s) Facility (12 sources) Phentermine; Translations: [PHENTERMINE] Drug Allergy 03-25-2024 Other: See Comments [facility] Medications Current Medications Medication Drug Class(es) Dates [...] Start: 06-26-2021 take 1 capsule by mo [facility] once daily Cholecalciferol, Vitamin D3, 125 mcg (5,000 unit) cap Take 1 capsule by mouth once daily. 30 capsule 11 06/26/2021 Active Comment on above: Take 1 capsule by mo [facility] once daily. CPAP/BIPAP/OTHER (20 sources) Start: 02-25-2023 [...] gear, humidity, tubing, lifetime supplies. G47.[address] [facility] [id number] dapagliflozin 10 mg oral tablet (20 sources) [...] Test Name Value Interpretation Reference Range Facility [facility] 12-06-2024 CNOV Office Visit (FAMPWS ) ROE INTERIANO ([id number]) 1975 M Date Time Provider Department 12/06/24 2:40 PM [facility] your visit today, we recorded [...] No famotidi (more content not included)... Normal [facility] Virtual Office Visiton 10-24 Virtual Office Visit [facility] [address] [place] [address] OFFICE VISIT Date of Service: 10/24/24 MR#: [id number] Acct: [id number] Patient: ROE INTERIANO Rep #: [id number] : 1975 Provider: VIDA Vela Age/Sex: 49/M Location: [facility] Status: Signed Intake Vital Signs 10/10/24 09:54 Height 5 ft 9 in Weight: 276 lb 4 oz BMI 40.8 BP 120/78 Position Sitting Pulse 81 Pulse Oximetry (%) 98 Oxygen Delivery Method room air Intake Visit Reasons: 2 W FU/ECHO WELD Chief Complaint: WC new, right rib injury Allergies No Known Allergies Allergy (Verified 10/10/24 09:57) [facility] Medical History (Updated 10/05/24 @ 12:51 by [...] Contusion of right chest wall S20.211A Comment 72890 Assessment and Plan Assessment and Plan (1) Contusion of right chest wall: Status: Acute Plan: Released without restrictions at this time as noted on today's [employer] 14. Follow-up with [facility] clinic on an as-needed basis only. Patient states acknowledging understanding all the above. This note was generated with [employer] dictation software. It may contain incorrect words, spelling, and punctuation that were not noted in checking the note before signing. 10/24/24 0937 Date Raji Han Signature: Date (if applicable) CC: Normal [facility] Urgent Care Visit Reporton 0 10-10-2024 Urgent Care Visit Report [facility] [address], [address] [place] [address] OFFICE VISIT Date of Service: 10/10/24 MR#: [id number] Acct: [id number] Name: ROE INTERIANO Rep #: [id number] : 1975 Provider: VIDA Vela Age/Sex: 49/M Location: [facility] Status: Signed Intake Vital Signs 10/05/24 12:14 [...] PO DAILY 12/28/18 10/10/24 History Nurse's Note: [facility] follow up. [facility] Medical History (Updated 10/05/24 @ 12:51 by [...] including no head or neck complaints. No bzok-orz-qerreyo products taken to assist. No other associated symptoms and no other alleviating/aggravating factors. ROS Const Constitutional: No other (As above) Exam Const General: cooperative, healthy appearing and no acute distress Orientation: alert and awake [facility] Head: normal to inspection Ears: external [...] work without restrictions as noted on today's [employer] 14. Supportive measures including 6 inch Elton [...] acknowledging unders (more content not included)... Normal [facility] Ribs Adilson Min 4V w/PA Cheston 10-05-2024 Ribs Adilson Min 4V w/PA Chest [facility] Imaging Services [address] [place] [address] Ribs Adilson Min 4V w/PA Chest MR#: [id number] Acct: [id number] Name: ROE INTERIANO Rep #: [id number] : 1975 49 From: Osbaldo canela MD PCP: Dr. Ean Luu, DO Status: REG CLI Study: Ribs Adilson Min 4V w/PA Chest Date of Exam: 10/05 Exam# [id number] Ordering Dr: Raji Alvarez PA :[id number] STUDY: X-RAY - BILATERAL RIBS WITH CHEST [...] CC: Dr. Ean Luu, DO; VIDA Vela Civil Engineering Teacher: Signed Normal [facility] Urgent Care Visit Reporton 0 10-05-2024 Urgent Care Visit Report [facility] [address], [address] [place], [place] [address] OFFICE VISIT Date of Service: 10/05/24 MR#: [id number] Acct: [id number] Name: ROE INTERIANO Rep #: [id number] : 1975 Provider: VIDA Vela Age/Sex: 49/M Location: [facility] Status: Signed Intake Vital Signs 10/03/19 08:07 [...] Chief Complaint: WC new, right rib injury Records Analyst Required: No Is patient in pain?: Yes [...] you fallen in the past year?: Yes [facility] Medical History (Updated 10/05/24 @ 12:51 by [...] including no head or neck complaints. No jthm-lsy-fcukhjy products taken to assist. No other associated symptoms and no other alleviating/aggravating factors. ROS Const Constitutional: No other (As above) Exam Const General: cooperative, healthy appearing and no acute distress Orientation: alert and awake [facility] Head: normal to inspection Ears: external [...] restrictions effective 10/06/2024 as noted on today's [employer] 14. Supportive measures including 6 inch Elton wrap to use as swath over chest, and cough/deep breathing exercises as instructed today. Follow-up with the [facility] clinic in approximately 5 days for reassessment and continuation of care, sooner should symptoms only w (more content not included)... 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 Mr. Interiano has past history [...] ONETOUCH ULTRA2 (more content not included)... Normal [facility] CNOVon 05-17-2024 CNOV Office Visit (FAMPWS ) ROE INTERIANO ([id number]) 1975 M Date Time Provider Department 05/17/24 [...] up appt for surgical consideration yet with [employer] [facility] ERECTILE DYSFUNCTION, has been tried on multple different medications without a lot of benefit. Was seen by Ultrasound Coordinator for opinion for testosterone replacement, not interested [...] needed. Ruslan (more content not included)... Normal [facility] ALBUMIN/CREATININE RATIO, UR INEon 05-06-2024 Albumin DL <= 20 mg/L (U) [Mass/Vol] 14.8 mg/L Normal [facility] Comment on above: Order Comment: Speci men Type: URINE SPECIMENOrdering Facility: [facility] Address: [address] [place] [address] Performed By: #### U ACR ####[facility] LABCLIA [id number] [place] [address] [place] Albumin/Creatinine (U) [Mass ratio] 15 mg/g Normal <30 [facility] Comment on above: Order Comment: Speci men Type: URINE SPECIMENOrdering Facility: [facility] Address: [address] [place] [address] Result Comment: Adul t Male and Female Nephrotic Criteria: <30 mg/g is considered normal to mildly increased 30-300 mg/g is considered moderately increased >300 mg/g is considered severely increased KDIGO. (2013). KDIGO 2012 Clinical Practice Guideline for the Evaluation and Management of Chronic Kidney Disease. Official Journal of the International Society of Nephrology, 3(1), 1-150. Performed By: #### U ACR ####[facility] LABCLIA [id number] [place] [id number] [place] Creatinine (U) [Mass/Vol] 100.3 mg/dL Normal 20.0-300.0 [facility] Comment on above: Order Comment: Speci men Type: URINE SPECIMENOrdering Facility: [facility] Address: [address] [place] [address] Performed By: #### U ACR ####[facility] LABCLIA [id number] [place] [address] [place] Comprehensive metabolic 2000 panelon 05-06-2024 Albumin [Mass/Vol] 4.2 g/dL Normal 3.9-4.9 [facility] Comment on above: Order Comment: Speci men Type: BLOOD SPECIMENOrdering Facility: [facility] Address: [address] [place] [address] Performed By: #### 2 4323-8 ####[facility] BETSE[facility] MILLTOWNCLIA [id number] [place] [address] [place] ALP [Catalytic activity/Vol] 73 U/L Normal 38-113 [facility] Comment on above: Order Comment: Speci men Type: BLOOD SPECIMENOrdering Facility: [facility] Address: [address] [place] [address] Performed By: #### 2 4323-8 ####[facility] MILLTOWNCLIA [id number] [place] [address] [place] ALT [Catalytic activity/Vol] 20 U/L Normal 10-54 [facility] Comment on above: Order Comment: Speci men Type: BLOOD SPECIMENOrdering Facility: [facility] Address: [address] [place] [address] Performed By: #### 2 4323-8 ####[facility] MILLTOWNCLIA [id number] [place] [address] [place] Anion gap [Moles/Vol] 12 mmol/L Normal 8-15 [facility] Comment on above: Order Comment: Speci men Type: BLOOD SPECIMENOrdering Facility: [facility] Address: [address] [place] [address] Performed By: #### 2 4323-8 ####[facility] RODERICKLIA [id number] [place] [address] [place] AST [Catalytic activity/Vol] 16 U/L Normal 14-40 [facility] Comment on above: Order Comment: Speci men Type: BLOOD SPECIMENOrdering Facility: [facility] Address: [address] [place] [address] Performed By: #### 2 4323-8 ####[facility] REJIDAYTONFRANKLIA [id number] [place] [address] [place] Bilirubin [Mass/Vol] 0.9 mg/dL Normal 0.2-1.3 [facility] Comment on above: Order Comment: Speci men Type: BLOOD SPECIMENOrdering Facility: [facility] Address: [address] [place] [address] Performed By: #### 2 4323-8 ####[facility] REJIDAYTONFRANKLIA [id number] [place] [address] [place] Calcium [Mass/Vol] 9.8 mg/dL Normal 8.5-10.2 [facility] Comment on above: Order Comment: Speci men Type: BLOOD SPECIMENOrdering Facility: [facility] Address: [address] [place] [address] Performed By: #### 2 4323-8 ####[facility] PEMBROKENCLIA [id number] [place] [address] [place] Chloride [Moles/Vol] 106 mmol/L Normal 98-107 [facility] Comment on above: Order Comment: Speci men Type: BLOOD SPECIMENOrdering Facility: [facility] Address: [address] [place] [address] Performed By: #### 2 4323-8 ####[facility] ERWNCLIA [id number] [place] [address] [place] CO2 [Moles/Vol] 21 mmol/L Low 22-30 [facility] Comment on above: Order Comment: Speci men Type: BLOOD SPECIMENOrdering Facility: [facility] Address: [address] [place] [address] Performed By: #### 2 4323-8 ####[facility] HOSPITALLIA [id number] [place] [address] [place] Creatinine [Mass/Vol] 0.65 mg/dL Low 0.73-1.22 [facility] Comment on above: Order Comment: Speci men Type: BLOOD SPECIMENOrdering Facility: [facility] Address: [address] [place] [address] Performed By: #### 2 4323-8 ####[facility] [id number] [place] [address] [place] Creatinine and Glomerular filtration rate.predicted panel (S/P/Bld) 116 mL/min/1.73m??? Normal >=60 [facility] Comment on above: Order Comment: Speci men Type: BLOOD SPECIMENOrdering Facility: [facility] Address: [address] [place] [address] Result Comment: Celeste mated Glomerular Filtration Rate [...] actual GFR. Performed By: #### 2 4323-8 ####[facility] ERWNCLIA [id number] [place] [address] [place] Glucose [Mass/Vol] 137 mg/dL High 74-99 [facility] Comment on above: Order Comment: Speci men Type: BLOOD SPECIMENOrdering Facility: [facility] Address: [address] [place] [address] Result Comment: The [place] Diabetes Association (ADA) provides guidance for cutoff [...] Standards of Medical Care in Diabetes 2016, [place] Diabetes Association. Diabetes Care. 2016.39(Suppl 1). Performed By: #### 2 4323-8 ####[facility] [id number] [place] [address] [place] Potassium [Moles/Vol] 4.3 mmol/L Normal 3.7-5.1 [facility] Comment on above: Order Comment: Rafiai men Type: BLOOD SPECIMENOrdering Facility: [facility] Address: [address] [place] [address] Performed By: #### 2 4323-8 ####[facility] PEMBROKENCLI [id number] [place] [address] [place] Protein [Mass/Vol] 6.7 g/dL Normal 6.3-8.0 [facility] Comment on above: Order Comment: Rachel mejia Type: BLOOD SPECIMENOrdering Facility: [facility] Address: [address] [place] [address] Performed By: #### 2 4323-8 ####[facility] PEMBROKENCLIA [id number] [place] [address] [place] Sodium [Moles/Vol] 139 mmol/L Normal 136-144 [facility] Comment on above: Order Comment: Speci men Type: BLOOD SPECIMENOrdering Facility: [facility] Address: [address] [place] [address] Performed By: #### 2 4323-8 ####[facility] REJIPARVIZ [id number] [place] [address] [place] Urea nitrogen [Mass/Vol] 14 mg/dL Normal 9-24 [facility] Comment on above: Order Comment: Rafiai men Type: BLOOD SPECIMENOrdering Facility: [facility] Address: [address] [place] [address] Performed By: #### 2 4323-8 ####[facility] PEMBROKENCRELL [id number] [place] [address] [place] HbA1c (Bld)on 05-06-2024 Average glucose Estimated from glycated hemoglobin (Bld) [Mass/Vol] 151 mg/dL Normal [facility] Comment on above: Order Comment: Rachel men Type: BLOOD SPECIMENOrdering Facility: [facility] Address: [address] [place] [address] Result Comment: eAG: (Estimated average glucose) is a calculated value from HgbA1c and is unit support representative of the average blood glucose level in the last 2-3 month period. Performed By: #### 5 5454-3 ####[facility] LABCLIA [id number] [place] [address] [place] HbA1c (Bld) [Mass fraction] 6.9 % High 4.3-5.6 [facility] Comment on above: Order Comment: Rachel [facility] Type: BLOOD SPECIMENOrdering Facility: [facility] Address: [address] [place] [address] Result Comment: Amer ican Diabetes Association guidelines indicate that patients with HgbA1c in the range 5.7-6.4% are at increased risk for development of diabetes, and intervention by lifestyle modification may be beneficial. HgbA1c greater or equal to 6.5% is considered diagnostic of diabetes. Performed By: #### 5 5454-3 ####[facility] LABCLIA [id number] [place] [address] [place] Lipid 1996 panelon 4 Cholesterol [Mass/Vol] 114 mg/dL Normal <200 [facility] Comment on above: Order Comment: Speci men Type: BLOOD SPECIMENOrdering Facility: [facility] Address: [address] [place] [address] Result Comment: <200 mg/dL, Desirable 200-239 mg/dL, Borderline high >239 mg/dL, High Performed By: #### 3 016-3 ####[facility] LABCLIA [id number] [place] [address] [place]#### 50954-7 ####[facility] LABCLIA [id number] [address] STATES OF [facility] [id number] [place] [address] [place] Cholesterol in HDL [Mass/Vol] 28 mg/dL Low >39 [facility] Comment on above: Order Comment: Speci men Type: BLOOD SPECIMENOrdering Facility: [facility] Address: [address] [place] [address] Result Comment: 40-5 9 mg/dL, Acceptable >59 mg/dL, High: Negative risk factor for coronary heart disease <40 mg/dL, Low: Positive risk factor for coronary heart disease Performed By: #### 3 016-3 ####[facility] LABCL[facility] [id number] [place] [address] [place]#### 70048-2 ####[facility] LABCLIA [id number] [address] STATES OF [facility] HOSPITALLIA [id number] [place] [address] [place] Cholesterol in LDL [Mass/Vol] 37 mg/dL Normal <100 [facility] Comment on above: Order Comment: Speci men Type: BLOOD SPECIMENOrdering Facility: [facility] Address: [address] [place] [address] Result Comment: <100 mg/dL, Optimal 100-129 mg/dL, Near optimal/above optimal 130-159 mg/dL, Borderline high 160-189 mg/dL, High >189 mg/dL, Very high Secondary prevention optimal LDL Cholesterol levels are recommended to be < 70 mg/dL Performed By: #### 3 016-3 ####[facility] LABCLIA [id number] [address]#### 15209-6 ####[facility] LABCL[facility] [id number] [address] [id number] [place] [address] STATES OF [facility] Cholesterol in LDL/Cholesterol in HDL [Mass ratio] 1.32 {ratio} Normal <2.54 [facility] Comment on above: Order Comment: Speci men Type: BLOOD SPECIMENOrdering Facility: [facility] Address: [address] [place] [address] Result Comment: Darcy guadarrama: 1. National Cholesterol Education Program ATP III Guideline At-A-Glance Quick Desk Reference: National Heart, Lung, and Blood [place]. National Institutes of Health. 2001: NIH Publication No. 01-3305. 2. An International Atherosclerosis Society position paper: global recommendations for the management of dyslipidemia: executive summary, Atherosclerosis. 2014: 232(2):410-413. Performed By: #### 3 016-3 ####[facility] LABCL[facility] [id number] [address] [place]#### 68721-3 ####[facility] LABCL[facility] [id number] [address] [id number] [address] [place] Cholesterol in VLDL [Mass/Vol] 49 mg/dL High <30 [facility] Comment on above: Order Comment: Speci men Type: BLOOD SPECIMENOrdering Facility: [facility] Address: [address] [place] [address] Performed By: #### 3 016-3 ####[facility] LABCLIA [id number] [place] [address] [place]#### 52683-6 ####[facility] [id number] [address] STATES OF [facility] [id number] [address] [place] Cholesterol non HDL [Mass/Vol] 86 mg/dL Normal <130 [facility] Comment on above: Order Comment: Speci men Type: BLOOD SPECIMENOrdering Facility: [facility] Address: [address] [place] [address] Result Comment: <130 mg/dL, Optimal 130-159 mg/dL, Near optimal/above optimal 160-189 mg/dL, Borderline high 190-219 mg/dL, High >219 mg/dL, Very high Secondary prevention optimal non HDL Cholesterol levels are recommended to be <100 mg/dL Performed By: #### 3 016-3 ####[facility] LABCL[facility] [id number] [address] [place]#### 49403-8 ####[facility] LABCL[facility] [id number] [place] [address] [place] [facility] [id number] [place] [address] [place] Cholesterol.total/ Cholesterol in HDL [Mass ratio] 4.07 {ratio} Normal <5.10 [facility] Comment on above: Order Comment: Speci men Type: BLOOD SPECIMENOrdering Facility: [facility] Address: [address] [place] [address] Performed By: #### 3 016-3 ####[facility] LABCL[facility] [id number] [place] [address] [place]#### 37238-0 ####[facility] LABCL[facility] [id number] [place] [address] [place] [facility] [id number] [place] [address] [place] FASTING TIME 12 hrs Normal [facility] Comment on above: Order Comment: Speci men Type: BLOOD SPECIMENOrdering Facility: [facility] Address: [address] [place] [address] Performed By: #### 3 016-3 ####[facility] LABCL[facility] [id number] [place] [address] [place]#### 24125-9 ####[facility] LAB[facility] [id number] [address] STATES [facility] [id number] [place] [address] [place] Triglyceride [Mass/Vol] 247 mg/dL High <150 [facility] Comment on above: Order Comment: Speci men Type: BLOOD SPECIMENOrdering Facility: [facility] Address: [address] [place] [address] Result Comment: <150 mg/dL, Normal 150-199 mg/dL, Borderline high 200-499 mg/dL, High >499 mg/dL, Very high Performed By: #### 3 016-3 ####[facility] LAB[facility] [id number] [place] [address] [place]#### 13743-5 ####[facility] LABCL[facility] [id number] [place] [address] [facility] [id number] [address] [place] TSH SerPl-aCncon 05-06-2024 TSH Qn 1.620 m[IU]/L Normal 0.270-4.200 [facility] Comment on above: Order Comment: Speci men Type: BLOOD SPECIMENOrdering Facility: [facility] Address: [address] [place] [address] Performed By: #### 3 016-3 ####[facility] LABCL[facility] [id number] [address]#### 05801-4 ####[facility] LAB[facility] [id number] [address] [id number] [address] [place] CNPNon 05-02-2024 CNPN Telephone (FAMPWS) ROE INTERIANO ([id number]) 1975 Date Time Provider Department 05/02/24 EAN [...] with ketoacidosis, uncontrolled (HCC) [E11.10] Order(s):HEMOGLOBIN A1C [EGGZK5C] Order #: [id number] FUTURE LIPID PANEL BASIC [SQLIPB] Order #: [id number] FUTURE COMPREHENSIVE METABOLIC PANEL [SQCMP] Order #: [id number] FUTURE ALBUMIN/CREATININE RATIO, URINE [SQUACR] Order #: [id number] FUTURE THYROID STIMULATING HORMONE [SQTSH] Order #: [id number] FUTURE Prescriptions as of 05/02/2024 - allopurinol [...] diabetes m (more content not included)... Normal [facility] CNOVon 03-25-2024 CNOV Office Visit (ENWSTR ) ROE INTERIANO Lucretia ([id number]) 1975 M Date Time Provider Department 03/25/24 [...] on File Prior to Visit Medication Sig YoQueVosTOUCH ULTRA2 METER 1 Each by VIA DEVICE [...] once da (more content not included)... [facility] JAYDONROE ([id number]) 1975 M Date Time Provider Department 03/25/24 EAN LUU During your visit today, we recorded the following information about you: Mag Chambers, RN 03/25/2024 1:48 PM Signed Patient reports he saw the ethylbenzene oxidizer, and was informed his testosterone numbers are [...] [L72.9, L08.9] (more content not included)... Normal [facility] CNOVon 03-07-2024 CNOV Office Visit (GENSME ) ROE INTERIANO ([id number]) 1975 M Date Time Provider Department 03/07/24 [...] as n (more content not included)... Normal [facility] CNOVon 02-23-2024 CNOV Office Visit (CURTIS ) ROE INTERIANO ([id number]) 1975 M Date Time Provider Department 02/23/24 [...] as needed (nasal dryness). [facility] Use as instructed blood sugar [...] to pro (more content not included)... Normal [facility] CNOVon 02-10-2024 CNOV Office Visit (FAMPWS ) ROE INTERIANO ([id number]) 1975 M Date Time Provider Department 02/10/24 3:20 PM JENN SOTELO [facility] During your visit today, we recorded the following information about you: Pulse Respiration Blood pressure Weight 72/minute 16/minute 124/62 126.9 kg Jenn Sotelo APRN.TONGUE STITCHER 02/10/2024 4:05 PM Signed Chief Complaint Patient [...] bedtime as (more content not included)... Normal [facility] UA DIP, URINE (POC)on 2023 BILIRUBIN UA (POCT) Negative Negative [facility] CLARITY UA (POCT) Clear [facility] COLOR UA (POCT) Yellow [facility] GLUCOSE UA (POCT) 100 mg/dL Abnormal Negative [facility] Hemoglobin Ql (U) Negative Negative [facility] Interpretation and review of laboratory results Abnormal [facility] KETONE UA (POCT) Negative Negative mg/dL [facility] LEUKOCYTES UA (POCT) Negative Negative [facility] NITRITE UA (POCT) Negative Negative [facility] PH UA (POCT) 5.5 4.5 - 8.0 [facility] Protein Ql (U) Negative Negative mg/dL [facility] SPECIFIC GRAVITY UA (POCT) <=1.005 Abnormal 1.005 - 1.030 [facility] UROBILINOGEN UA (POCT) 0.2 Normal E.U./dL [facility] Location:[facility], [address] [facility], [place], [address] [facility] OF CARE [facility] CNPNon 02-03-2024 CNPN Telephone (FAMPWS) ROE INTERIANO ([id number]) 1975 M Date Time Provider Department 02/03/24 [facility] your visit today, we recorded the following information about you: Ean Luu DO 02/03/2024 10:24 PM Signed Please let him know that his testosterone levels are still low normal. Recommend follow up with Urologist or ethylbenzene oxidizer for opinion if interested in taking testosterone [...] Status:Closed by ALLI MULLEN on 03/30/24 Normal [facility] TESTOSTERONE, FREE AND TOTAL on 01-27-2024 TESTOSTERONE, FREE, S 8.50 ng/dL Normal 4.26-16.4 [facility] Comment on above: Order Comment: Speci men Type: BLOOD SPECIMENOrdering Facility: [facility] Address: [address] [place] [id number] Result Comment: ADDITIONAL INFORMATION This test was developed and its performance characteristics determined by [facility] in a manner consistent with CLIA requirements. This test has not been cleared or approved by the U.S. Food and Drug Administration. Performed By: #### T FTEST ####[facility] LABCLIA [id number] [place] [address] TESTOSTERONE, TOTAL, S 200 ng/dL Low 240-950 [facility] Comment on above: Order Comment: Speci men Type: BLOOD SPECIMENOrdering Facility: [facility] Address: [address] [place], [place] [address] [address] Result Comment: ADDITIONAL INFORMATION Testing performed by Liquid Chromatography-Tandem Mass Spectrometry (LC-MS/MS). This test was developed and its performance characteristics determined by [facility] in a manner consistent with CLIA requirements. This test has not been cleared or approved by the U.S. Food and Drug Administration. Test Performed by: [address] [address] Automobile Radiator Mechanic: Ulysses Sher M.D. Ph.D.; CLIA# [id number] Performed By: #### T FTEST ####[facility] LABCLIA [id number] [place] [address] [place] 01-26-2024 CNPN Telephone (FAMPWS) ROE INTERIANO ([id number]) 1975 Date Time Provider Department 01/26/24 EAN [...] Abs Lymph 1.00 - 4.00 k/uL 1.45 Sibley% % 6.3 Abs Sibley <0.87 k/uL 0.56 Eosin% % 3.6 Abs [...] AM Signed Noted. Thank you, Jenn Sotelo APRN.TONGUE STITCHER Allergies As of Date: 01/26/2024 (No Known Allergies) Date Reviewed: 01/15/2024 Reviewed by: Sarah Lua LPN - Fully Assessed Reason for Visit: Results, Lab [1201] Primary Visit Diagnosis:Low testosterone [R79.89] Order(s):TESTOSTERONE, FREE AND TOTAL [SQTFTEST] Order #: [id number] FUTURE Prescriptions as of 01/27/2024 - lisinopril [...] - Cholecalci (more content not included)... Normal [facility] CBC W Auto Differential pane l (Bld)on 01-16-2024 Basophils (Bld) [#/Vol] 0.09 10*3/uL <0.11 k/uL [facility] Basophils/100 WBC (Bld) 1.0 % [facility] Differential cell count method Nom (Bld) Auto [facility] Eosinophils (Bld) [#/Vol] 0.32 10*3/uL <0.46 k/uL [facility] Eosinophils/100 WBC (Bld) 3.6 % [facility] Erythrocyte distribution width (RBC) [Ratio] 14.1 % 11.5 - 15.0 % [facility] Hematocrit (Bld) [Volume fraction] 46.3 % 39.0 - 51.0 % [facility] Hemoglobin (Bld) [Mass/Vol] 15.7 g/dL 13.0 - 17.0 g/dL [facility] Immature granulocytes (Bld) [#/Vol] <0.10 k/uL [facility] Immature granulocytes/100 WBC (Bld) 0.2 % [facility] Lymphocytes (Bld) [#/Vol] 1.45 10*3/uL 1.00 - 4.00 k/uL [facility] Lymphocytes/100 WBC (Bld) 16.2 % [facility] MCH (RBC) [Entitic mass] 27.5 pg 26.0 - 34.0 pg [facility] MCHC (RBC) [Mass/Vol] 33.9 g/dL 30.5 - 36.0 g/dL [facility] MCV (RBC) [Entitic vol] 81.2 fL 80.0 - 100.0 fL [facility] Monocytes (Bld) [#/Vol] 0.56 10*3/uL <0.87 k/uL [facility] Monocytes/100 WBC (Bld) 6.3 % [facility] Neutrophils (Bld) [#/Vol] 6.52 10*3/uL 1.45 - 7.50 k/uL [facility] Neutrophils/100 WBC (Bld) 72.7 % [facility] Nucleated RBC (Bld) [#/Vol] <0.01 k/uL [facility] Nucleated RBC/100 WBC (Bld) [Ratio] 0.0 /100 WBC [facility] Platelet mean volume (Bld) [Entitic vol] 10.4 fL 9.0 - 12.7 fL [facility] Platelets (Bld) [#/Vol] 270 10*3/uL 150 - 400 k/uL [facility] RBC (Bld) [#/Vol] 5.70 10*6/uL 4.20 - 6.0 0 m/uL [facility] WBC (Bld) [#/Vol] 8.96 10*3/uL 3.70 - 11. 00 k/uL [facility] CBC W Auto Differential pane l (Bld)on 01-15-2024 Basophils (Bld) [#/Vol] 0.09 10*3/uL Normal <0.11 [facility] Comment on above: Order Comment: Speci men Type: BLOOD SPECIMENOrdering Facility: [facility] Address: [address] [place] [address] Performed By: #### 5 7021-8 ####[facility] LABCLIA [id number] [place] [address] [place] Basophils/100 WBC (Bld) 1.0 % Normal [facility] Comment on above: Order Comment: Speci men Type: BLOOD SPECIMENOrdering Facility: [facility] Address: [address] [place] [address] Performed By: #### 5 7021-8 ####[facility] LABCLIA [id number] [place] [address] [place] Differential cell count method Nom (Bld) Auto Normal [facility] Comment on above: Order Comment: Speci men Type: BLOOD SPECIMENOrdering Facility: [facility] Address: [address] [place] [address] Performed By: #### 5 7021-8 ####[facility] LABCLIA [id number] [place] [address] [place] Eosinophils (Bld) [#/Vol] 0.32 10*3/uL Normal <0.46 [facility] Comment on above: Order Comment: Speci men Type: BLOOD SPECIMENOrdering Facility: [facility] Address: [address] [place] [address] Performed By: #### 5 7021-8 ####[facility] LABCLIA [id number] [place] [address] [place] Eosinophils/100 WBC (Bld) 3.6 % Normal [facility] Comment on above: Order Comment: Speci men Type: BLOOD SPECIMENOrdering Facility: [facility] Address: [address] [place] [address] Performed By: #### 5 7021-8 ####[facility] LABIA [id number] [place] [address] [place] Erythrocyte distribution width (RBC) [Ratio] 14.1 % Normal 11.5-15.0 [facility] Comment on above: Order Comment: Speci men Type: BLOOD SPECIMENOrdering Facility: [facility] Address: [address] [place] [address] Performed By: #### 5 7021-8 ####[facility] LABIA [id number] [place] [address] [place] Hematocrit (Bld) [Volume fraction] 46.3 % Normal 39.0-51.0 [facility] Comment on above: Order Comment: Speci men Type: BLOOD SPECIMENOrdering Facility: [facility] Address: [address] [place] [address] Performed By: #### 5 7021-8 ####[facility] LABIA [id number] [place] [address] [place] Hemoglobin (Bld) [Mass/Vol] 15.7 g/dL Normal 13.0-17.0 [facility] Comment on above: Order Comment: Speci men Type: BLOOD SPECIMENOrdering Facility: [facility] Address: [address] [place] [address] Performed By: #### 5 7021-8 ####[facility] LABIA [id number] [place] [address] [place] Immature granulocytes (Bld) [#/Vol] 10*3/uL Normal <0.10 [facility] Comment on above: Order Comment: Speci men Type: BLOOD SPECIMENOrdering Facility: [facility] Address: [address] [place] [address] Performed By: #### 5 7021-8 ####[facility] LABCLIA [id number] [place] [address] [place] Immature granulocytes/100 WBC (Bld) 0.2 % Normal [facility] Comment on above: Order Comment: Speci men Type: BLOOD SPECIMENOrdering Facility: [facility] Address: [address] [place] [address] Performed By: #### 5 7021-8 ####[facility] LABCLIA [id number] [place] [address] [place] Lymphocytes (Bld) [#/Vol] 1.45 10*3/uL Normal 1.00-4.00 [facility] Comment on above: Order Comment: Speci men Type: BLOOD SPECIMENOrdering Facility: [facility] Address: [address] [place] [address] Performed By: #### 5 7021-8 ####[facility] LABCLIA [id number] [place] [address] [place] Lymphocytes/100 WBC (Bld) 16.2 % Normal [facility] Comment on above: Order Comment: Speci men Type: BLOOD SPECIMENOrdering Facility: [facility] Address: [address] [place] [address] Performed By: #### 5 7021-8 ####[facility] LABCLIA [id number] [place] [address] [place] MCH (RBC) [Entitic mass] 27.5 pg Normal 26.0-34.0 [facility] Comment on above: Order Comment: Speci men Type: BLOOD SPECIMENOrdering Facility: [facility] Address: [address] [place] [address] Performed By: #### 5 7021-8 ####[facility] LABCLIA [id number] [place] [address] [place] MCHC (RBC) [Mass/Vol] 33.9 g/dL Normal 30.5-36.0 [facility] Comment on above: Order Comment: Speci men Type: BLOOD SPECIMENOrdering Facility: [facility] Address: [address] [place] [address] Performed By: #### 5 7021-8 ####[facility] LABIA [id number] [place] [address] [place] MCV (RBC) [Entitic vol] 81.2 fL Normal 80.0-100.0 [facility] Comment on above: Order Comment: Speci men Type: BLOOD SPECIMENOrdering Facility: [facility] Address: [address] [place] [address] Performed By: #### 5 7021-8 ####[facility] LABIA [id number] [place] [address] [place] Monocytes (Bld) [#/Vol] 0.56 10*3/uL Normal <0.87 [facility] Comment on above: Order Comment: Speci men Type: BLOOD SPECIMENOrdering Facility: [facility] Address: [address] [place] [address] Performed By: #### 5 7021-8 ####[facility] LABIA [id number] [place] [address] [place] Monocytes/100 WBC (Bld) 6.3 % Normal [facility] Comment on above: Order Comment: Speci men Type: BLOOD SPECIMENOrdering Facility: [facility] Address: [address] [place] [address] Performed By: #### 5 7021-8 ####[facility] LABIA [id number] [place] [address] [place] Neutrophils (Bld) [#/Vol] 6.52 10*3/uL Normal 1.45-7.50 [facility] Comment on above: Order Comment: Speci men Type: BLOOD SPECIMENOrdering Facility: [facility] Address: [address] [place] [address] Performed By: #### 5 7021-8 ####[facility] LABCLIA [id number] [place] [address] [place] Neutrophils/100 WBC (Bld) 72.7 % Normal [facility] Comment on above: Order Comment: Speci men Type: BLOOD SPECIMENOrdering Facility: [facility] Address: [address] [place] [address] Performed By: #### 5 7021-8 ####[facility] LABCLIA [id number] [place] [address] [place] Nucleated RBC (Bld) [#/Vol] 10*3/uL Normal <0.01 [facility] Comment on above: Order Comment: Speci men Type: BLOOD SPECIMENOrdering Facility: [facility] Address: [address] [place] [address] Performed By: #### 5 7021-8 ####[facility] LABIA [id number] [place] [address] [place] Nucleated RBC/100 WBC (Bld) [Ratio] 0.0 /100 WBC Normal [facility] Comment on above: Order Comment: Speci men Type: BLOOD SPECIMENOrdering Facility: [facility] Address: [address] [place] [address] Performed By: #### 5 7021-8 ####[facility] LABIA [id number] [place] [address] [place] Platelet mean volume (Bld) [Entitic vol] 10.4 fL Normal 9.0-12.7 [facility] Comment on above: Order Comment: Speci men Type: BLOOD SPECIMENOrdering Facility: [facility] Address: [address] [place] [address] Performed By: #### 5 7021-8 ####[facility] LABIA [id number] [place] [address] [place] Platelets (Bld) [#/Vol] 270 10*3/uL Normal 150-400 [facility] Comment on above: Order Comment: Speci men Type: BLOOD SPECIMENOrdering Facility: [facility] Address: [address] [place] [address] Performed By: #### 5 7021-8 ####[facility] LABCLIA [id number] [place] [address] [place] RBC (Bld) [#/Vol] 5.70 10*6/uL Normal 4.20-6.00 [facility] Comment on above: Order Comment: Speci men Type: BLOOD SPECIMENOrdering Facility: [facility] Address: [address] [place] [address] Performed By: #### 5 7021-8 ####[facility] LABCLIA [id number] [place] [address] [place] WBC (Bld) [#/Vol] 8.96 10*3/uL Normal 3.70-11.00 [facility] Comment on above: Order Comment: Speci men Type: BLOOD SPECIMENOrdering Facility: [facility] Address: [address] [place] [address] Performed By: #### 5 7021-8 ####[facility] LABCLIA [id number] [place] [address] [place] CNOVon 01-15-2024 CNOV Office Visit (FAMPWS ) ROE INTERIANO ([id number]) 1975 M Date Time Provider Department 01/15/24 [...] acid re (more content not included)... Normal [facility] Comprehensive metabolic 2000 panelon 01-15-2024 Albumin [Mass/Vol] 4.4 g/dL Normal 3.9-4.9 [facility] Comment on above: Order Comment: Speci men Type: BLOOD SPECIMENOrdering Facility: [facility] Address: [address] [place] [address] Performed By: #### 2 4323-8, LIPNF ####[facility] LABCLIA [id number] [place] [address] [place] ALP [Catalytic activity/Vol] 117 U/L High 38-113 [facility] Comment on above: Order Comment: Speci men Type: BLOOD SPECIMENOrdering Facility: [facility] Address: [address] [place] [address] Performed By: #### 2 4323-8, LIPNF ####[facility] LABCLIA [id number] [place] [address] [place] ALT [Catalytic activity/Vol] 31 U/L Normal 10-54 [facility] Comment on above: Order Comment: Speci men Type: BLOOD SPECIMENOrdering Facility: [facility] Address: [address] [place] [address] Performed By: #### 2 4323-8, LIPNF ####[facility] LABIA [id number] [place] [address] [place] Anion gap [Moles/Vol] 14 mmol/L Normal 9-18 [facility] Comment on above: Order Comment: Speci men Type: BLOOD SPECIMENOrdering Facility: [facility] Address: [address] [place] [address] Performed By: #### 2 4323-8, LIPNF ####[facility] LABCLIA [id number] [place] [address] [place] AST [Catalytic activity/Vol] 26 U/L Normal 14-40 [facility] Comment on above: Order Comment: Speci men Type: BLOOD SPECIMENOrdering Facility: [facility] Address: [address] [place] [address] Performed By: #### 2 4323-8, LIPNF ####[facility] LABCLIA [id number] [place] [address] [place] Bilirubin [Mass/Vol] 0.8 mg/dL Normal 0.2-1.3 [facility] Comment on above: Order Comment: Speci men Type: BLOOD SPECIMENOrdering Facility: [facility] Address: [address] [place] [address] Performed By: #### 2 4323-8, LIPNF ####[facility] LABCLIA [id number] [place] [address] [place] Calcium [Mass/Vol] 9.9 mg/dL Normal 8.5-10.2 [facility] Comment on above: Order Comment: Speci men Type: BLOOD SPECIMENOrdering Facility: [facility] Address: [address] [place] [address] Performed By: #### 2 4323-8, LIPNF ####[facility] LABCLIA [id number] [place] [address] [place] Chloride [Moles/Vol] 100 mmol/L Normal 97-105 [facility] Comment on above: Order Comment: Speci men Type: BLOOD SPECIMENOrdering Facility: [facility] Address: [address] [place] [address] Performed By: #### 2 4323-8, LIPNF ####[facility] LABCLIA [id number] [place] [address] [place] CO2 [Moles/Vol] 20 mmol/L Low 22-30 [facility] Comment on above: Order Comment: Speci men Type: BLOOD SPECIMENOrdering Facility: [facility] Address: [address] [place] [address] Performed By: #### 2 4323-8, LIPNF ####[facility] LABCLIA [id number] [facility] [place] [address] [place] Creatinine [Mass/Vol] 0.75 mg/dL Normal 0.73-1.22 [facility] Comment on above: Order Comment: Speci men Type: BLOOD SPECIMENOrdering Facility: [facility] Address: [address] [place] [address] Performed By: #### 2 4323-8, LIPNF ####[facility] LABCLIA [id number] [place] [address] [place] Creatinine and Glomerular filtration rate.predicted panel (S/P/Bld) 112 mL/min/1.73m??? Normal >=60 [facility] Comment on above: Order Comment: Speci men Type: BLOOD SPECIMENOrdering Facility: [facility] Address: [address] [place] [address] Result Comment: Celeste mated Glomerular Filtration Rate [...] GFR. Performed By: #### 2 4323-8, LIPNF ####[facility] LABCLIA [id number] [place] [address] [place] Glucose [Mass/Vol] 373 mg/dL High 74-99 [facility] Comment on above: Order Comment: Speci men Type: BLOOD SPECIMENOrdering Facility: [facility] Address: [address] [place] [address] Result Comment: The [place] [employer] (ADA) provides guidance for cutoff [...] Standards of Medical Care in Diabetes 2016, [place] [employer]. Diabetes Care. 2016.39(Suppl 1). Performed By: #### 2 4323-8, LIPNF ####[facility] LABIA [id number] [place] [address] [place] Potassium [Moles/Vol] 4.5 mmol/L Normal 3.7-5.1 [facility] Comment on above: Order Comment: Speci men Type: BLOOD SPECIMENOrdering Facility: [facility] Address: [address] [place] [address] Performed By: #### 2 4323-8, LIPNF ####[facility] [id number] [place] [address] [place] Protein [Mass/Vol] 7.1 g/dL Normal 6.3-8.0 [facility] Comment on above: Order Comment: Speci men Type: BLOOD SPECIMENOrdering Facility: [facility] Address: [address] [place] [address] Performed By: #### 2 4323-8, LIPNF ####[facility] LABIA [id number] [place] [address] [place] Sodium [Moles/Vol] 134 mmol/L Low 136-144 [facility] Comment on above: Order Comment: Speci men Type: BLOOD SPECIMENOrdering Facility: [facility] Address: [address] [place] [address] Performed By: #### 2 4323-8, LIPNF ####[facility] LABCLIA [id number] [place] [address] [place] Urea nitrogen [Mass/Vol] 16 mg/dL Normal 9-24 [facility] Comment on above: Order Comment: Rafiai men Type: BLOOD SPECIMENOrdering Facility: [facility] Address: [address] [place] [address] Performed By: #### 2 4323-8, LIPNF ####[facility] LABCLIA [id number] [place] [address] [place] HbA1c (Bld)on 01-15-2024 Average glucose Estimated from glycated hemoglobin (Bld) [Mass/Vol] 266 mg/dL Normal [facility] Comment on above: Order Comment: Rachel mejia Type: BLOOD SPECIMENOrdering Facility: [facility] Address: [address] [place] [address] Result Comment: eAG: (Estimated average glucose) is a calculated value from HgbA1c and is unit support representative of the average blood glucose level in the last 2-3 month period. Performed By: #### 5 5454-3 ####[facility] LABCL[facility] [id number] [place] [address] [place] HbA1c (Bld) [Mass fraction] 10.9 % High 4.3-5.6 [facility] Comment on above: Order Comment: Rachel mejia Type: BLOOD SPECIMENOrdering Facility: [facility] Address: [address] [place] [address] Result Comment: [place] Diabetes Association guidelines indicate that patients with HgbA1c in the range 5.7-6.4% are at increased risk for development of diabetes, and intervention by lifestyle modification may be beneficial. HgbA1c greater or equal to 6.5% is considered diagnostic of diabetes. Performed By: #### 5 5454-3 ####[facility] LABCLIA [id number] [place] [address] [place] LIPID PANEL, NONFASTINGon 04 -19-2024 Cholesterol [Mass/Vol] 145 mg/dL Normal <200 [facility] Comment on above: Order Comment: Speci men Type: BLOOD SPECIMENOrdering Facility: [facility] Address: [address] [place] [address] Result Comment: <200 mg/dL, Desirable 200-239 mg/dL, Borderline high >239 mg/dL, High Performed By: #### 2 4323-8, LIPNF ####[facility] LABCLIA [id number] [place] [address] [place] HDL CHOLESTEROL, NF 31 mg/dL Low >39 [facility] Comment on above: Order Comment: Speci men Type: BLOOD SPECIMENOrdering Facility: [facility] Address: [address] [place] [address] Result Comment: 40-5 9 mg/dL, Acceptable >59 mg/dL, High: Negative risk factor for coronary heart disease <40 mg/dL, Low: Positive risk factor for coronary heart disease Performed By: #### 2 4323-8, LIPNF ####[facility] LABCL[facility] [id number] [place] [address] [place] LDL CHOLESTEROL, NF Normal [facility] Comment on above: Order Comment: Speci men Type: BLOOD SPECIMENOrdering Facility: [facility] Address: [address] [place] [address] Result Comment: Unab le to calculate due to increased Triglycerides. A Direct LDL Cholesterol measurement will not be performed. If clinically indicated, a fasting Basic Lipid Panel (LIPB) may be ordered. Performed By: #### 2 4323-8, LIPNF ####[facility] LABCL[facility] [id number] [place] [address] [place] LDL/HDL RATIO, NF Normal [facility] [facility] Comment on above: Order Comment: Speci men Type: BLOOD SPECIMENOrdering Facility: [facility] Address: [address] [place] [address] Result Comment: Unab le to calculate due to elevated Triglycerides. Reference: 1. National Cholesterol Education Program ATP III Guideline At-A-Glance Quick Desk Reference: National Heart, Lung, and Blood [place]. National Institutes of Health. 2001: NIH Publication No. 01-3305. 2. An International Atherosclerosis Society position paper: global recommendations for the management of dyslipidemia: executive summary, Atherosclerosis. 2014: 232(2):410-413. Performed By: #### 2 4323-8, LIPNF ####[facility] LABCLIA [id number] [place] [address] [place] NON HDL CHOL, NF 114 mg/dL Normal <130 [facility] Comment on above: Order Comment: Speci men Type: BLOOD SPECIMENOrdering Facility: [facility] Address: [address] [place] [address] Result Comment: <130 mg/dL, Optimal 130-159 mg/dL, Near optimal/above optimal 160-189 mg/dL, Borderline high 190-219 mg/dL, High >219 mg/dL, Very high Secondary prevention optimal non HDL Cholesterol levels are recommended to be <100 mg/dL Performed By: #### 2 4323-8, LIPNF ####[facility] LABCLIA [id number] [address] [place] T CHOL/HDL RATIO NF 4.68 mg/dL Normal <5.10 [facility] Comment on above: Order Comment: Rafiai men Type: BLOOD SPECIMENOrdering Facility: [facility] Address: [address] [place] [address] Performed By: #### 2 4323-8, LIPNF ####[facility] LABCLIA [id number] [address] [place] TRIGLYCERIDES, NF 988 mg/dL High <150 [facility] Comment on above: Order Comment: Rafiai men Type: BLOOD SPECIMENOrdering Facility: [facility] Address: [address] [place] [address] Result Comment: <150 mg/dL, Normal 150-199 mg/dL, Borderline high 200-499 mg/dL, High >499 mg/dL, Very high Performed By: #### 2 4323-8, LIPNF ####[facility] LABCLIA [id number] [place] [address] [place] VLDL CHOLESTEROL, NF Normal [facility] Comment on above: Order Comment: Speci men Type: BLOOD SPECIMENOrdering Facility: [facility] Address: [address] [place] [address] Result Comment: Unab le to calculate due to elevated Triglycerides. Performed By: #### 2 4323-8, LIPNF ####[facility] LABCLIA [id number] [place] [address] [place] PSA/PROSTATE SPECIFIC ANTIGE N SCREENINGon 01-15-2024 Prostate specific Ag [Mass/Vol] 0.49 ng/mL Normal <2.60 [facility] Comment on above: Order Comment: Speci men Type: BLOOD SPECIMENOrdering Facility: [facility] Address: [address] [place] [address] Result Comment: Tota l PSA test methodology used is the Electrochemiluminescence Immunoassay by Bob Terrafugia. Total PSA values by differing methodologies cannot be interchanged. Performed By: #### P SAS1 ####[facility] LABCLIA [id number] [place] [address] [place] TESTOSTERONE, FREE AND TOTAL on 01-15-2024 TESTOSTERONE, FREE, S 4.72 ng/dL Normal 4.26-16.4 [facility] Comment on above: Order Comment: Speci men Type: BLOOD SPECIMENOrdering Facility: [facility] Address: [address] [place] [address] Result Comment: ADDITIONAL INFORMATION This test was developed and its performance characteristics determined by [facility] in a manner consistent with CLIA requirements. This test has not been cleared or approved by the U.S. Food and Drug Administration. Performed By: #### T FTEST ####[facility] LABCLIA [id number] [place] [address] TESTOSTERONE, TOTAL, S 122 ng/dL Low 240-950 [facility] Comment on above: Order Comment: Speci men Type: BLOOD SPECIMENOrdering Facility: [facility] Address: [place] [address] Result Comment: ADDITIONAL INFORMATION Testing performed by Liquid Chromatography-Tandem Mass Spectrometry (LC-MS/MS). This test was developed and its performance characteristics determined by [facility] in a manner consistent with CLIA requirements. This test has not been cleared or approved by the U.S. Food and Drug Administration. Test Performed by: [facility] [address] [place] [address] Automobile Radiator Mechanic: Ulysses Sher M.D. Ph.D.; CLIA# [id number] Performed By: #### T FTEST ####[facility] LABCLIA [id number] [place] [address] CT CHEST WO IVCONon 11-13-19 [facility] ECG COMPLETEon 10-28-2022 Atrial Rate 74 BPM [facility] Calculated P [place] 30 degrees [facility] Calculated R [place] 19 degrees [facility] Calculated T [place] 28 degrees [facility] P-R Interval 146 ms [facility] QRS Duration 118 ms [facility] QT Interval 410 ms [facility] QTC Calculation (Bazett) 455 ms [facility] Ventricular Rate 74 BPM [facility] ECG COMPLETE Ventricular Rate : 7 4 BPM Atrial Rate : 74 BPM P-R Interval : 146 ms QRS Duration : 118 ms Q-T Interval : 410 ms QTC Calculation(Bazett) : 455 ms Calculated P [place] : 30 degrees Calculated R [place] : 19 degrees Calculated T [place] : 28 degrees NORMAL SINUS RHYTHM NON-SPECIFIC INTRA-VENTRICULAR CONDUCTION DELAY BORDERLINE ECG NO PREVIOUS ECGS AVAILABLE Confirmed by ROE AMRIE M.D. ([id number]) on 10/28/2022 4:56:40 PM NAME : JAYDONROE PID : [id number] : 1975 Gender : Male Race : ORD : [id number] Procedure Date : Oct 28 2022 07:57:11 [...] REBA VAUGHAN Acquired by : JENNIFER WARD [facility] ABD RT UPPER QUADRANTon 0 10-27-2022 [facility] XR CHEST 2V FRONTAL/LATon Radiology Result ACTIONABLE Abnormal [facility] HEMOGLOBIN A1C (POC)on 10-01 HbA1c (Bld) [Mass fraction] 9.8 % Abnormal 4.2 - 5.6 % [facility] Vital Signs Date Time Vital Sign Value Performing Clinician Faci lity 03-24-2025 18:28-0400 Body mass index (BMI) [Ratio] 41 kg/m2 Kisha Hill APRN.TONGUE STITCHER Work Phone: [facility] 03-24-2025 18:28-0400 Body temperature 98.4 [degF] Kisha Hill APRN.TONGUE STITCHER Work Phone: [facility] 03-24-2025 18:28-0400 Body weight 122.3 kg Kisha Hill APRN.TONGUE STITCHER Work Phone: [facility] 03-24-2025 18:28-0400 Diastolic blood pressure 60 mm[Hg] Kisha Hill APRN.TONGUE STITCHER Work Phone: [facility] 03-24-2025 18:28-0400 Heart rate 122 /min Kisha Hill APRN.TONGUE STITCHER Work Phone: [facility] 03-24-2025 18:28-0400 Respiratory rate 20 /min Kisha Hill APRN.TONGUE STITCHER Work Phone: [facility] 03-24-2025 18:28-0400 SaO2% (BldA) [Mass fraction] 97 % Kisha Hill APRN.TONGUE STITCHER Work Phone: [facility] 03-24-2025 18:28-0400 Systolic blood pressure 92 mm[Hg] Kisha Hill TONGUE STITCHER Work Phone: [facility] 12-06-2024 14:14-0400 Body mass index (BMI) [Ratio] 41.51 kg/m2 Ean Luu DO Work Phone: [facility] 12-06-2024 14:14-0400 Body temperature 96.4 [degF] Ean Luu DO Work Phone: [facility] 12-06-2024 14:14-0400 Body weight 123.83 kg Ean Luu DO Work Phone: [facility] 12-06-2024 14:14-0400 Diastolic blood pressure 68 mm[Hg] Ean Luu DO Work Phone: [facility] 12-06-2024 14:14-0400 Heart rate 80 /min Ean Luu DO Work Phone: [facility] 12-06-2024 14:14-0400 Respiratory rate 16 /min Ean Luu DO Work Phone: [facility] 12-06-2024 14:14-0400 Systolic blood pressure 126 mm[Hg] Ean Luu DO Work Phone: [facility] 08-30-2024 15:25-0500 Body mass index (BMI) [Ratio] 41.21 kg/m2 Ean Luu DO Work Phone: [facility] 08-30-2024 15:25-0500 Body temperature 97.7 [degF] Ean Luu DO Work Phone: [facility] 08-30-2024 15:25-0500 Body weight 122.92 kg Ean Luu DO Work Phone: [facility] 08-30-2024 15:25-0500 Diastolic blood pressure 80 mm[Hg] Ean Luu DO Work Phone: [facility] 08-30-2024 15:25-0500 Heart rate 64 /min Ean Luu DO Work Phone: [facility] 08-30-2024 15:25-0500 Respiratory rate 16 /min Ean Luu DO Work Phone: [facility] 08-30-2024 15:25-0500 Systolic blood pressure 130 mm[Hg] Ean Luu DO Work Phone: [facility] 05-17-2024 15:18-0400 Diastolic blood pressure 82 mm[Hg] Ean Luu DO Work Phone: [facility] 05-17-2024 15:18-0400 Systolic blood pressure 140 mm[Hg] Ean Luu DO Work Phone: [facility] 05-17-2024 15:13-0400 Body mass index (BMI) [Ratio] 40.9 kg/m2 Ean Luu DO Work Phone: [facility] 05-17-2024 15:13-0400 Body temperature 97.81 [degF] Ean Luu DO Work Phone: [facility] 05-17-2024 15:13-0400 Body weight 122.02 kg Ena Luu DO Work Phone: [facility] 05-17-2024 15:13-0400 Heart rate 80 /min Ean Luu DO Work Phone: [facility] 05-17-2024 15:13-0400 Respiratory rate 20 /min Ean Luu DO Work Phone: [facility] 03-25-2024 13:08-0400 Body height 172.7 cm Catrina Lofton MD Work Phone: [facility] 03-25-2024 13:08-0400 Body mass index (BMI) [Ratio] 40.9 kg/m2 Catrina Lofton MD Work Phone: [facility] 03-25-2024 13:08-0400 Body weight 122.02 kg Cartina Lofton MD Work Phone: [facility] 03-25-2024 13:08-0400 Diastolic blood pressure 72 mm[Hg] Catrina Lofton MD Work Phone: [facility] 03-25-2024 13:08-0400 Heart rate 68 /min Catrina Lofton MD Work Phone: [facility] 03-25-2024 13:08-0400 Respiratory rate 20 /min Catrina Lofton MD Work Phone: [facility] 03-25-2024 13:08-0400 SaO2% (BldA) [Mass fraction] 96 % Catrina Lofton MD Work Phone: [facility] 03-25-2024 13:08-0400 Systolic blood pressure 132 mm[Hg] Catrina Lofton MD Work Phone: [facility] 02-23-2024 08:57-0400 Body height 175.7 cm Patrick Rubin MD Work Phone: [facility] 02-23-2024 08:57-0400 Body mass index (BMI) [Ratio] 39.67 kg/m2 Patrick Rubin MD Work Phone: [facility] 02-23-2024 08:57-0400 Body weight 122.47 kg Patrick Rubin MD Work Phone: [facility] 02-23-2024 08:57-0400 Diastolic blood pressure 71 mm[Hg] Patrick Rubin MD Work Phone: [facility] 02-23-2024 08:57-0400 Heart rate 74 /min Patrick Rubin MD Work Phone: [facility] 02-23-2024 08:57-0400 Systolic blood pressure 119 mm[Hg] Patrick Rubin MD Work Phone: [facility] 02-10-2024 15:28-0400 Body mass index (BMI) [Ratio] 41.11 kg/m2 Jenn Sotelo APRN.CNP Work Phone: [facility] 02-10-2024 15:28-0400 Body weight 126.92 kg Jenn Sotelo FINANCIAL AID.TONGUE STITCHER Work Phone: [facility] 02-10-2024 15:28-0400 Diastolic blood pressure 62 mm[Hg] Jenn Sotelo FINANCIAL AID.TONGUE STITCHER Work Phone: [facility] 02-10-2024 15:28-0400 Heart rate 72 /min Jenn Sotelo FINANCIAL AID.TONGUE STITCHER Work Phone: [facility] 02-10-2024 15:28-0400 Respiratory rate 16 /min Jenn Sotelo FINANCIAL AID.TONGUE STITCHER Work Phone: [facility] 02-10-2024 15:28-0400 Systolic blood pressure 124 mm[Hg] Jenn Sotelo FINANCIAL AID.TONGUE STITCHER Work Phone: [facility] 01-15-2024 16:06-0400 Body weight 128.73 kg Ean Luu DO Work Phone: [facility] 01-15-2024 16:06-0400 Diastolic blood pressure 80 mm[Hg] Ean Luu DO Work Phone: [facility] 01-15-2024 16:06-0400 Heart rate 100 /min Ean Luu DO Work Phone: [facility] 01-15-2024 16:06-0400 Respiratory rate 14 /min Ean Luu DO Work Phone: [facility] 01-15-2024 16:06-0400 Systolic blood pressure 150 mm[Hg] Ean Luu DO Work Phone: [facility] 07-15-2023 15:36-0400 Body temperature 97.3 [degF] Ean Luu DO Work Phone: [facility] 07-15-2023 15:36-0400 Body weight 126.55 kg Ean Luu DO Work Phone: [facility] 07-15-2023 15:36-0400 Diastolic blood pressure 80 mm[Hg] Ean Luu DO Work Phone: [facility] 07-15-2023 15:36-0400 Heart rate 68 /min Ean Luu DO Work Phone: [facility] 07-15-2023 15:36-0400 Respiratory rate 16 /min Ean Luu DO Work Phone: [facility] 07-15-2023 15:36-0400 Systolic blood pressure 130 mm[Hg] Ean Luu DO Work Phone: [facility] 01-07-2023 18:32-0400 Body temperature 97.7 [degF] Ean Luu DO Work Phone: [facility] 01-07-2023 18:32-0400 Body weight 130.64 kg Ean Luu DO Work Phone: [facility] 01-07-2023 18:32-0400 Diastolic blood pressure 70 mm[Hg] Ean Luu DO Work Phone: [facility] 01-07-2023 18:32-0400 Heart rate 80 /min Ean Luu DO Work Phone: [facility] 01-07-2023 18:32-0400 Respiratory rate 20 /min Ean Luu DO Work Phone: [facility] 01-07-2023 18:32-0400 Systolic blood pressure 136 mm[Hg] Ean Luu DO Work Phone: [facility] 12-01-2022 02:35-0500 Body height 175.7 cm Sleep [facility] Work Phone: [facility] 12-01-2022 02:35-0500 Body weight 130 kg Sleep Main Work Phone: [facility] 11-24-2022 08:19-0500 Body height 175.[address] Work Phone: [facility] 11-24-2022 08:19-0500 Body weight 130.[address] Work Phone: [facility] 11-19-2022 13:53-0500 Body height 175.3 cm Margaret Fofana FINANCIAL AID.TONGUE STITCHER Work Phone: [facility] 11-19-2022 13:53-0500 Body weight 132.54 kg Margaret Fofana FINANCIAL AID.TONGUE STITCHER Work Phone: [facility] 11-19-2022 13:53-0500 Diastolic blood pressure 84 mm[Hg] Margaretabiodun Fofana FINANCIAL AID.TONGUE STITCHER Work Phone: [facility] 11-19-2022 13:53-0500 Heart rate 76 /min Margaret Fofana FINANCIAL AID.TONGUE STITCHER Work Phone: [facility] 11-19-2022 13:53-0500 SaO2% (BldA) [Mass fraction] 97 % [facility] Fofana FINANCIAL AID.TONGUE STITCHER Work Phone: [facility] 11-19-2022 13:53-0500 Systolic blood pressure 136 mm[Hg] Margaretabiodun Fofana FINANCIAL AID.TONGUE STITCHER Work Phone: [facility] 10-24-2022 07:59-0500 Body height 175.3 cm Reba Vaughan FINANCIAL AID.TONGUE STITCHER Work Phone: [facility] 10-24-2022 07:59-0500 Body weight 130.64 kg Reba Vaughan FINANCIAL AID.TONGUE STITCHER Work Phone: [facility] 10-01-2022 17:00-0500 Body temperature 97.81 [degF] Ean Luu DO Work Phone: [facility] 10-01-2022 17:00-0500 Body weight 130.64 kg Ean Luu DO Work Phone: [facility] 10-01-2022 17:00-0500 Diastolic blood pressure 80 mm[Hg] Ean Luu DO Work Phone: [facility] 10-01-2022 17:00-0500 Heart rate 80 /min Ean Luu DO Work Phone: [facility] 10-01-2022 17:00-0500 Respiratory rate 16 /min Ean Luu DO Work Phone: [facility] 10-01-2022 17:00-0500 Systolic blood pressure 120 mm[Hg] Ean Luu DO Work Phone: [facility] 07-09-2022 17:32-0400 Body temperature 98.01 [degF] Ean Luu DO Work Phone: [facility] 07-09-2022 17:32-0400 Body weight 132 kg Ean Luu DO Work Phone: [facility] 07-09-2022 17:32-0400 Diastolic blood pressure 80 mm[Hg] Ean Luu DO Work Phone: [facility] 07-09-2022 17:32-0400 Heart rate 88 /min Ean Luu DO Work Phone: [facility] 07-09-2022 17:32-0400 Respiratory rate 16 /min Ean Luu DO Work Phone: [facility] 07-09-2022 17:32-0400 SaO2% (BldA) [Mass fraction] 99 % Ean Luu DO Work Phone: [facility] 07-09-2022 17:32-0400 Systolic blood pressure 138 mm[Hg] Ean Luu DO Work Phone: [facility] 12-25-2021 17:30-0400 Body temperature 96.69 [degF] Ean Luu DO Work Phone: [facility] 12-25-2021 17:30-0400 Body weight 130.64 kg Ean Luu DO Work Phone: [facility] 12-25-2021 17:30-0400 Diastolic blood pressure 70 mm[Hg] Ean Luu DO Work Phone: [facility] 12-25-2021 17:30-0400 Heart rate 88 /min Ean Luu DO Work Phone: [facility] 12-25-2021 17:30-0400 Respiratory rate 20 /min Ean Luu DO Work Phone: [facility] 12-25-2021 17:30-0400 Systolic blood pressure 124 mm[Hg] Ean Luu DO Work Phone: [facility] Encounters Encounter Date Encounter Type Care Provider Facility Start: 03-24-2025 End: 03-24-2025 Patient encounter procedure Kisha Hill TONGUE STITCHER [facility] Comment on above: Hypotension, unspeci fied hypotension type (Primary Dx); Tachycardia Start: 03-05-2025 End: 03-06-2025 Refill Ean L Luu DO Work Phone: [facility] Comment on above: Refill Request Start: 12-06-2024 End: 12-06-2024 ambulatory EAN L LUU Facility:[facility] Start: 12-06-2024 End: 12-06-2024 Patient encounter procedure Ean L Luu DO Work Phone: [facility] Comment on above: Uncontrolled type 2 diabetes mellitus with hyperglycemia (HCC) (Primary Dx); Hyperlipidemia with target LDL less than 100; Essential hypertension; Primary hypertension; Vitamin B12 deficiency Start: 10-24-2024 End: 10-24-2024 ambulatory Ean Luu [facility] Start: 10-10-2024 End: 10-10-2024 ambulatory Ean Luu Facility:[facility] Start: 10-05-2024 End: 10-05-2024 ambulatory Ean Luu Facility:[facility] Start: 10-05-2024 End: 10-05-2024 ambulatory Raji MCPHERSON Facility:[facility] Start: 08-30-2024 End: 08-30-2024 Patient encounter procedure Ean L Luu DO Work Phone: [facility] Comment on above: MIKKI (obstructive sle ep apnea) (Primary Dx); Uncontrolled type 2 diabetes mellitus with hyperglycemia (HCC); Primary hypertension; Hyperlipidemia with target LDL less than 100; Vitamin B12 deficiency; Ptosis, left eyelid; Fatigue, unspecified type Start: 08-30-2024 End: 08-30-2024 ambulatory EAN L LUU Facility:[facility] Start: 07-14-2024 End: 07-18-2024 Refill Jenn Sotelo FINANCIAL AID.TONGUE STITCHER Work Phone: [facility] Comment on above: Refill Request Start: 05-17-2024 End: 05-17-2024 Patient encounter procedure Ean Silverrison DO Work Phone: [facility] Comment on above: Uncontrolled type 2 diabetes mellitus with hyperglycemia (HCC) (Primary Dx); Primary hypertension; Hyperlipidemia with target LDL less than 100; MIKKI (obstructive sleep apnea); Vitamin B12 deficiency; ED (erectile dysfunction) of organic origin; Morbid obesity (HCC); Ptosis, left eyelid Start: 05-17-2024 End: 05-17-2024 ambulatory EAN LUU Facility:[facility] Start: 05-06-2024 End: 05-06-2024 ambulatory TJ BEAN Facility:[facility] Start: 05-02-2024 Telephone encounter Ean chan DO Work Phone: [facility] Comment on above: Patient Question Start: 04-19-2024 Refill Mag Negrete on PA-C Work Phone: [facility] Comment on above: Refill Request Start: 03-25-2024 Telephone encounter Ean chan DO Work Phone: [facility] Comment on above: Patient Update Start: 03-25-2024 End: 03-25-2024 ambulatory CATRINA LOFTON Facility:[facility] Start: 03-25-2024 End: 03-25-2024 Patient encounter procedure Catrina Lofton MD Work Phone: Endocrinology Comment on above: Low testosterone in male (Primary Dx) Start: 03-16-2024 Refill Jenn Sotelo FINANCIAL AID.TONGUE STITCHER Work Phone: [facility] Comment on above: Refill Request Start: 03-07-2024 End: 03-07-2024 Patient encounter procedure Patrick Rubin MD Work Phone: General Surgery Comment on above: Infected cyst of ski n (Primary Dx); Infected sebaceous cyst Refill Request Start: 03-07-2024 End: 03-07-2024 ambulatory PATRICK RUBIN Facility:[facility] Start: 02-23-2024 End: 02-23-2024 ambulatory PATRICK RUBIN Facility:[facility] Start: 02-23-2024 End: 02-23-2024 Patient encounter procedure Patrick Rubin MD Work Phone: General Surgery Comment on above: Infected sebaceous c yst (Primary Dx); Cutaneous abscess of other site Start: 02-19-2024 Refill Jenn Deepak FINANCIAL AID.TONGUE STITCHER Work Phone: [facility] Comment on above: Refill Request Start: 02-10-2024 End: 02-10-2024 ambulatory JENN SOTELO Facility:[facility] Start: 02-10-2024 End: 02-10-2024 Patient encounter procedure Jenn Sotelo FINANCIAL AID.TONGUE STITCHER Work Phone: [facility] Comment on above: Cutaneous abscess of other site (Primary Dx); Uncontrolled type 2 diabetes mellitus with hyperglycemia (HCC); Dysuria Start: 02-03-2024 Telephone encounter Ean chan DO Work Phone: [facility] Start: 01-31-2024 Refill Ean Garcia son DO Work Phone: [facility] Comment on above: Refill Request Start: 01-27-2024 End: 01-27-2024 ambulatory EAN LUU Facility:[facility] Start: 01-26-2024 Telephone encounter Ean chan DO Work Phone: [facility] Comment on above: Results, Lab Start: 01-15-2024 End: 01-15-2024 ambulatory EAN LUU Facility:[facility] Start: 01-15-2024 End: 01-15-2024 Patient encounter procedure Ean Luu DO Work Phone: [facility] Comment on above: Uncontrolled type 2 diabetes mellitus with hyperglycemia (HCC) (Primary Dx); Infected cyst of skin; Hyperlipidemia with target LDL less than 100; Essential hypertension; Vitamin B12 deficiency; ED (erectile dysfunction) of organic origin; Screening for prostate cancer Start: 01-15-2024 End: 01-15-2024 ambulatory EAN LUU Facility:[facility] Start: 01-15-2024 Refill Jenn Sotelo TORIE.TONGUE STITCHER Work Phone: [facility] Comment on above: Refill Request Start: 08-03-2023 Refill Ean mahmood DO Work Phone: [facility] Comment on above: Refill Request Start: 07-15-2023 End: 07-15-2023 Patient encounter procedure Ean Luu DO Work Phone: [facility] Comment on above: Uncontrolled type 2 diabetes mellitus with hyperglycemia (HCC) (Primary Dx); Trigeminal neuralgia of left side of face; Essential hypertension; Vitamin B12 deficiency Start: 06-09-2023 Telephone encounter Ean chan DO Work Phone: [facility] Start: 05-18-2023 Refill Ean mahmood DO Work Phone: [facility] Comment on above: Refill Request Start: 04-16-2023 Telephone encounter Ean chan DO Work Phone: [facility] Comment on above: Patient Question Start: 04-02-2023 Refill Ean mahmood DO Work Phone: [facility] Comment on above: Refill Request Start: 02-26-2023 Telephone encounter Ean chan DO Work Phone: [facility] Comment on above: Insurance Authorizat ion ([employer] ) Start: 02-24-2023 Telephone encounter [facility] Work Phone: Neurology Comment on above: PAP Therapy Follow U p (11/27/22 - 02/24/23 ) Start: 02-17-2023 E-mail encounter toya bull caregiver Margaret Fofana APRN.TONGUE STITCHER Work Phone: [facility] Start: 02-17-2023 Follow-up encounter Margaret Robles APRN.TONGUE STITCHER Work Phone: Neurology Comment on above: BiPAP follow up Start: 02-02-2023 Telephone encounter Ean Francheska chan DO Work Phone: [facility] Comment on above: Medication Problem Start: 01-07-2023 End: 01-07-2023 Patient encounter procedure Ean Luu DO Work Phone: [facility] Comment on above: Uncontrolled type 2 diabetes mellitus with hyperglycemia (HCC) (Primary Dx); Chronic pain of both shoulders; Finger pain, left; Bilateral impacted cerumen; Hyperlipidemia with target LDL less than 100; Obesity, Class III, BMI 40-49.9 (morbid obesity) (HCC); Fatigue, unspecified type; Essential hypertension; MIKKI (obstructive sleep apnea) Start: 01-07-2023 Refill Jenn Sotelo APRN.TONGUE STITCHER Work Phone: [facility] Comment on above: Refill Request Start: 01-06-2023 End: 01-06-2023 ambulatory Sathish Martínez MD Work Phone: General Surgery Comment on above: Obesity, Class III, BMI 40-49.9 (morbid obesity) (HCC) (Primary Dx); Controlled type 2 diabetes mellitus without complication, without long-term current use of insulin (HCC); MIKKI (obstructive sleep apnea) Start: 01-06-2023 End: 01-06-2023 Telemedicine consultation with patient Sathish Martínez MD Work Phone: [facility] Start: 12-29-2022 Orders Only Shara Upton MD Work Phone: Pulmonary Medicine Comment on above: Lung nodules (Primar y Dx) Start: 12-10-2022 Telephone encounter Margaret Robles APRN.TONGUE STITCHER Work Phone: Neurology Comment on above: Patient Question (Hi s new CPAP machine) Start: 12-01-2022 Chart abstracting [facility] Work Phone: Neurology Start: 11-30-2022 End: 12-01-2022 ambulatory MARGARET FOFANA Facility:[facility] Start: 11-24-2022 End: 11-24-[address] Work Phone: General Surgery Comment on above: Obesity, Class III, BMI 40-49.9 (morbid obesity) (HCC) (Primary Dx); Controlled type 2 diabetes mellitus without complication, without long-term current use of insulin (HCC); Dietary counseling and surveillance Start: 11-24-2022 End: 11-24-2022 Telemedicine consultation with patient Carrie Mendozanini OLIVEIRA Work Phone: [facility] Start: 11-22-2022 Orders Only Shara Upton MD Work Phone: Pulmonary Medicine Comment on above: Lung nodules (Primar y Dx) Start: 11-21-2022 Telephone encounter Ean chan DO Work Phone: [facility] Comment on above: Orders Start: 11-19-2022 End: 11-19-2022 Patient encounter procedure Margaret Fofana APRN.CNP Work Phone: Neurology Comment on above: MIKKI (obstructive sle ep apnea) (Primary Dx); Primary hypertension; Obesity, Class III, BMI 40-49.9 (morbid obesity) (HCC) Start: 11-13-2022 End: 11-13-2022 Subsequent hospital visit by physician Ct [facility] (I-Stat) Work Phone: Cat [...] with patient Sathish Martínez MD Work Phone: [facility] Start: 10-30-2022 End: 10-30-2022 ambulatory Shara Upton MD Work Phone: Pulmonary Medicine Comment on above: Lung nodules (Primar y Dx); Morbid obesity (HCC) Start: 10-30-2022 End: 10-30-2022 Telemedicine consultation with patient Shara Upton MD Work Phone: [facility] Start: 10-28-2022 End: 10-28-2022 Orders Only Reba Vaughan APRN.TONGUE STITCHER Work Phone: Endocrinology BMI Comment on above: Abnormal chest x-ray (Primary Dx) Class 3 severe obesi ty with serious comorbidity and body mass index (BMI) of 40.0 to 44.9 in adult, unspecified obesity type (HCC) [E66.01, Z68.41] Start: 10-27-2022 End: 10-27-2022 Subsequent hospital visit by physician Xr [facility] [place] Petar Work Phone: Radiology Comment on above: Class 3 severe obesi ty with serious comorbidity and body mass index (BMI) of 40.0 to 44.9 in adult, unspecified obesity type (HCC) [E66.01, Z68.41] Start: 10-24-2022 End: 10-24-2022 ambulatory Reba Vaughan APRN.TONGUE STITCHER Work Phone: General Surgery Comment on above: Class 3 severe obesi ty with serious comorbidity and body mass index (BMI) of 40.0 to 44.9 in adult, unspecified obesity type (HCC) (Primary Dx); MIKKI (obstructive sleep apnea); Primary hypertension; Hyperlipidemia with target LDL less than 100; GERD without esophagitis; Vitamin D deficiency; Controlled type 2 diabetes mellitus without complication, unspecified whether custodial insulin use (HCC) Start: 10-24-2022 End: 10-24-2022 Telemedicine consultation with patient Reba Alexus VOGT.TONGUE STITCHER Work Phone: [facility] Start: 10-01-2022 End: 10-01-2022 Patient encounter procedure Ean Luu DO Work Phone: [facility] [place] Comment on above: Uncontrolled type 2 diabetes mellitus with hyperglycemia (HCC) (Primary Dx); Hyperlipidemia with target LDL less than 100; Carpal tunnel syndrome, bilateral; Fatigue, unspecified type; Essential hypertension; Obesity, Class III, BMI 40-49.9 (morbid obesity) (HCC) Start: 07-09-2022 End: 07-09-2022 Patient encounter procedure Ean Luu DO Work Phone: [facility] [place] Comment on above: Uncontrolled type 2 diabetes mellitus with hyperglycemia (HCC) (Primary Dx); GERD without esophagitis; Fatigue, unspecified type; Essential hypertension; Hyperlipidemia with target LDL less than 100; Vitamin D deficiency; Obesity, Class III, BMI 40-49.9 (morbid obesity) ([facility]) Start: 07-09-2022 Telephone encounter Ean chan DO Work Phone: [facility] [place] Comment on above: Insurance Authorizat ion Start: 05-05-2022 Refill Ean mahmood DO Work Phone: [facility] [place] Comment on above: Refill Request Start: 01-29-2022 Refill Ean mahmood DO Work Phone: [facility] [place] Comment on above: Refill Request Start: 12-30-2021 Telephone encounter Ean chan DO Work Phone: [facility] Comment on above: Results Start: 12-25-2021 End: 12-25-2021 Patient encounter procedure Ean Luu DO Work Phone: [facility] [place] Comment on above: Uncontrolled type 2 diabetes mellitus with hyperglycemia (HCC) (Primary Dx); Hyperlipidemia with target LDL less than 100; Essential hypertension; Obesity, Class III, BMI 40-49.9 (morbid obesity) ([facility]); Actinic keratosis Procedures Date Procedure Procedure Detail Performing Clinician Start: 02-10-2024 Urnls dip stick/tabl et rgnt auto w/o microscopy Jennkamila Sotelo APRN.TONGUE STITCHER Work Phone: Start: 11-13-2022 Ct thorax w/o contra st material Shara Arielle Brown MD Work Phone: Start: 10-28-2022 Ecg routine ecg w/le ast 12 lds i&r only Reba Vaughan FINANCIAL AID.TONGUE STITCHER Work Phone: Start: 10-27-2022 Radiologic exam ches t 2 views Reba Vaughan APRN.TONGUE STITCHER Work Phone: Start: 10-27-2022 Us abdominal real ti me w/image limited Reba Vaughan APRN.TONGUE STITCHER Work Phone: Start: 10-01-2022 Hemoglobin A1c/Hemoglobin.total in Blood Ean Luu DO Work Phone: Start: 04-02-2022 Adult depression screening assessment Ean Luu DO Work Phone: Start: 03-11-2021 Adult depression screening assessment Ean Luu Work Phone: Plan of Treatment Date Care Activity Detail Author Start: 02-04-2026 Urine microalbumin profile [facility] Start: 12-06-2025 Annual PCP Team Chronic Disease Visit Annual PCP Team Chronic Disease Visit [facility] Start: 12-06-2025 BP Controlled (<130/80) BP Controlled (<130/80) [facility] Start: 08-30-2025 Annual PCP Team Chronic Disease Visit Annual PCP Team Chronic Disease Visit [facility] Start: 08-30-2025 Covid-19 Vaccine () Covid-19 Vaccine () [facility] Comment on above: Postponed from 05/29/2024 (Declined at t his time) Start: 07-14-2025 Glaucoma screening Dilated Retinal Exam [facility] Start: 06-08-2025 End: 09-07-2025 CBC panel - Blood by Automated count COMPLETE BLOOD COUNT Lab Routine Hyperlipidemia with target LDL less than 100 Expected: 06/08/2025, Expires: 09/07/2025 [facility] Comment on above: Expected: 06/08/2025, Expires: Start: 06-08-2025 End: 09-07-2025 Comprehensive metabolic 2000 panel - Serum or Plasma COMPREHENSIVE METABOLIC PANEL Lab Routine Hyperlipidemia with target LDL less than 100 Vitamin B12 deficiency Expected: 06/08/2025, Expires: 09/07/2025 [facility] Comment on above: Expected: 06/08/2025, Expires: Start: 06-08-2025 End: 09-07-2025 Hemoglobin A1c in Blood HEMOGLOBIN A1C Lab Routine Uncontrolled type 2 diabetes mellitus with hyperglycemia (HCC) Expected: 06/08/2025, Expires: 09/07/2025 [facility] Work Phone: Comment on above: Expected: 06/08/2025, Expires: Start: 06-08-2025 End: 09-07-2025 Lipid 1996 panel - Serum or Plasma LIPID PANEL BASIC Lab Routine Hyperlipidemia with target LDL less than 100 Expected: 06/08/2025, Expires: 09/07/2025 [facility] Comment on above: Expected: 06/08/2025, Expires: Start: 06-08-2025 End: 09-07-2025 Microalbumin/Creatinin e [Mass Ratio] in Urine ALBUMIN/CREATININE RATIO, URINE Lab Routine Uncontrolled type 2 diabetes mellitus with hyperglycemia (HCC) Expected: 06/08/2025, Expires: 09/07/2025 [facility] Comment on above: Expected: 06/08/2025, Expires: Start: 06-06-2025 End: 06-06-2025 Patient encounter procedure 06/06/2025 2:40 PM EDT Office Visit [facility] [address] [place], [place] [id number] Ean Luu DO [address] [place] [address] Physical [facility] Comment on above: Physical Start: 05-29-2025 Influenza vaccination Influenza Vaccine (Season Ended) [facility] Start: 05-18-2025 Diabetic foot examination Diabetic Foot Exam [facility] Start: 05-17-2025 Annual PCP Team Chronic Disease Visit Annual PCP Team Chronic Disease Visit [facility] Start: 05-06-2025 Hepatitis B screening Urine Albumin:Creatinine Ratio [facility] Start: 05-06-2025 Hepatitis B surface antibody level LDL Cholesterol [facility] Start: 03-27-2025 Influenza vaccination Influ[facility] Vacc[facility] Comment on above: Postponed from 05/29/2024 (Declined at t his time) Start: 02-22-2025 BP Controlled (<130/80) BP Controlled (<130/80) [facility] Start: 02-09-2025 Annual PCP Team Chronic Disease Visit Annual PCP Team Chronic Disease Visit [facility] Start: 02-09-2025 BP Controlled (<130/80) BP Controlled (<130/80) [facility] Start: 01-14-2025 Annual PCP Team Chronic Disease Visit Annual PCP Team Chronic Disease Visit [facility] Start: 01-14-2025 Covid-19 Vaccine () Covid-19 Vaccine () [facility] Comment on above: Postponed from 05/29/2023 (Declined at t his time) Start: 01-14-2025 Hepatitis B surface antibody level LDL Cholesterol [facility] Start: 01-14-2025 Pneumococcal vaccination Pneumococcal Vaccine (2 of 2 - PCV) [facility] Comment on above: Postponed from 09/15/2013 (Declined at t his time) Start: 12-06-2024 End: 12-06-2024 Patient encounter procedure 12/06/2024 2:40 PM EDT Office Visit Family [facility] [address] [place] [address] Ean Luu, DO [address] [place], [place] [id number] 3 month follow up Family [facility] Comment on above: 3 month follow up Start: 11-06-2024 Hemoglobin A1c measurement HbA1C [facility] Start: 08-30-2024 End: 08-30-2024 Patient encounter procedure 08/30/2024 3:00 PM EST Office Visit Family [facility] [address] [place] [address] Ean Luu, DO [address] [place] [address] 3 month follow up Family [facility] Comment on above: 3 month follow up Start: 08-30-2024 End: 11-29-2024 CBC W Auto Differential panel - Blood COMPLETE BLOOD COUNT AND DIFFERENTIAL Lab Routine Uncontrolled type 2 diabetes mellitus with hyperglycemia (HCC) Expected: 08/30/2024, Expires: 11/29/2024 [facility] Comment on above: Expected: 08/30/2024, Expires: Start: 08-30-2024 End: 11-29-2024 Comprehensive metabolic 2000 panel - Serum or Plasma COMPREHENSIVE METABOLIC PANEL Lab Routine Uncontrolled type 2 diabetes mellitus with hyperglycemia (HCC) Expected: 08/30/2024, Expires: 11/29/2024 [facility] Comment on above: Expected: 08/30/2024, Expires: Start: 08-30-2024 End: 11-29-2024 Hemoglobin A1c in Blood HEMOGLOBIN A1C Lab Routine Uncontrolled type 2 diabetes mellitus with hyperglycemia (HCC) Expected: 08/30/2024, Expires: 11/29/2024 [facility] Work Phone: Comment on above: Expected: 08/30/2024, Expires: Start: 07-15-2024 3 comp foot exam completed Diabetic Foot Exam [facility] Start: 07-15-2024 Annual PCP Team Chronic Disease Visit Annual PCP Team Chronic Disease Visit [facility] Start: 07-15-2024 BP Controlled (<130/80) BP Controlled (<130/80) [facility] Start: 07-15-2024 Diabetic foot examination Diabetic Foot Exam [facility] Start: 06-27-2024 Hepatitis B screening Urine Albumin:Creatinine Ratio [facility] Start: 06-27-2024 Hepatitis B surface antibody level LDL Cholesterol [facility] Start: 05-29-2024 Covid-19 Vaccine ( season) Covid-19 Vaccine ( season) [facility] Start: 05-29-2024 Influenza vaccination [facility] Start: 05-17-2024 End: 05-17-2024 Patient encounter procedure 05/17/2024 3:20 PM EDT Office Visit [facility] [address] [place] [address] Ean Luu DO [address] [facility] [address] 3 month f/up [facility] Comment on above: 3 month f/up Start: 05-06-2024 End: 05-06-2024 ambulatory 05/06/2024 8:15 AM EDT Results Only [facility] [address] [place] [address] [facility] Start: 05-02-2024 End: 08-01-2024 Comprehensive metabolic 2000 panel - Serum or Plasma COMPREHENSIVE METABOLIC PANEL Lab Routine Hyperlipidemia with target LDL less than 100 Diabetes mellitus type 2 with ketoacidosis, uncontrolled (HCC) Expected: 05/02/2024, Expires: 08/01/2024 [facility] Comment on above: Expected: 05/02/2024, Expires: Start: 05-02-2024 End: 08-01-2024 Hemoglobin A1c in Blood HEMOGLOBIN A1C Lab Routine Hyperlipidemia with target LDL less than 100 Diabetes mellitus type 2 with ketoacidosis, uncontrolled (HCC) Expected: 05/02/2024, Expires: 08/01/2024 [facility] Work Phone: Comment on above: Expected: 05/02/2024, Expires: Start: 05-02-2024 End: 08-01-2024 Lipid 1996 panel - Serum or Plasma LIPID PANEL BASIC Lab Routine Hyperlipidemia with target LDL less than 100 Expected: 05/02/2024, Expires: 08/01/2024 [facility] Comment on above: Expected: 05/02/2024, Expires: Start: 05-02-2024 End: 08-01-2024 Microalbumin/Creatinin e [Mass Ratio] in Urine ALBUMIN/CREATININE RATIO, URINE Lab Routine Diabetes mellitus type 2 with ketoacidosis, uncontrolled (HCC) Expected: 05/02/2024, Expires: 08/01/2024 [facility] Comment on above: Expected: 05/02/2024, Expires: Start: 05-02-2024 End: 08-01-2024 Thyrotropin [Units/volume] in Serum or Plasma THYROID STIMULATING HORMONE Lab Routine Hyperlipidemia with target LDL less than 100 Expected: 05/02/2024, Expires: 08/01/2024 [facility] Comment on above: Expected: 05/02/2024, Expires: Start: 04-15-2024 Hemoglobin A1c measurement HbA1C [facility] Start: 03-27-2024 Influenza vaccination Influenza Vaccine (#1) [facility] Comment on above: Postponed from 05/29/2023 (Declined at t his time) Start: 03-25-2024 End: 03-25-2024 Patient encounter procedure 03/25/2024 1:00 PM EDT [facility] [address] [facility] [place] [place], [place] [id number] Catrina Lofton MD [address] [facility] [place] [place], [place] [phone] TESTOSTERONE Endocrinology Comment on above: TESTOSTERONE Start: 03-07-2024 End: 03-07-2024 Patient encounter procedure 03/07/2024 8:00 AM EDT Office Visit General Surgery [address] [facility] [address] [place], [place] [id number] Patrick Rubin MD [address] [facility] [address] [place], [place] [id number] 10-14 day L groin abscess review General [...] Routine Low testosterone Expected: 01/26/2024, Expires: 04/26/2024 [facility] Work Phone: Comment on above: Expected: 01/26/2024, Expires: Start: 01-15-2024 End: 04-15-2024 Comprehensive metabolic 2000 panel - Serum or Plasma [facility] Work Phone: Comment on above: Expected: 01/15/2024, Expires: Start: 01-15-2024 End: 04-15-2024 Hemoglobin A1c in Blood [facility] Work Phone: Comment on above: Expected: 01/15/2024, Expires: Start: 01-15-2024 End: 04-15-2024 LIPID PANEL, NONFASTING [facility] Work Phone: Comment on above: Expected: 01/15/2024, Expires: Start: 01-15-2024 End: 04-15-2024 PSA/PROSTATE SPECIFIC ANTIGEN SCREENING [facility] Work Phone: Comment on above: Expected: 01/15/2024, Expires: Start: 01-15-2024 End: 04-15-2024 TESTOSTERONE, FREE AND TOTAL [facility] Work Phone: Comment on above: Expected: 01/15/2024, Expires: Start: 01-08-2024 ANNUAL PCP TEAM CHRONIC DISEASE VISIT ANNUAL PCP TEAM CHRONIC DISEASE VISIT [facility] Start: 10-27-2023 Hepatitis B surface antibody level LDL CHOLESTEROL [facility] Start: 10-01-2023 ANNUAL PCP TEAM CHRONIC DISEASE VISIT ANNUAL PCP TEAM CHRONIC DISEASE VISIT [facility] Start: 10-01-2023 COVID-19 VACCINE (#1) COVID-19 VACCINE (#1) [facility] Comment on above: Postponed from 1976 (Declined at t his time) Start: 09-26-2023 Hemoglobin A1c measurement HbA1C [facility] Start: 09-26-2023 Hemoglobin A1c/Hemoglobin.total in Blood HbA1C [facility] Start: 07-09-2023 ANNUAL PCP TEAM CHRONIC DISEASE VISIT ANNUAL PCP TEAM CHRONIC DISEASE VISIT [facility] Start: 07-09-2023 PNEUMOCOCCAL (2 - PCV) PNEUMOCOCCAL (2 - PCV) [facility] Comment on above: Postponed from 09/15/2013 (Declined at t his time) Start: 07-09-2023 Pneumococcal vaccination Pneumococcal Vaccine (2 - PCV) [facility] Comment on above: Postponed from 09/15/2013 (Declined at t his time) Start: 06-10-2023 End: 08-10-2023 ALBUMIN/CREAT RATIO RND UR ALBUMIN/CREAT RATIO RND UR Lab Routine Diabetes mellitus type 2 with ketoacidosis, uncontrolled (HCC) Expected: 06/10/2023, Expires: 08/10/2023 [facility] Work Phone: Comment on above: Expected: 06/10/2023, Expires: 3 Start: 06-10-2023 End: 08-10-2023 CBC W Auto Differential panel - Blood CBC + DIFF Lab Routine Hypercholesteremia Expected: 06/10/2023, Expires: 08/10/2023 [facility] Work Phone: Comment on above: Expected: 06/10/2023, Expires: Start: 06-10-2023 End: 08-10-2023 Cobalamin (Vitamin B12) [Mass/volume] in Serum or Plasma VITAMIN B12 BLOOD Lab Routine Vitamin B12 deficiency Expected: 06/10/2023, Expires: 08/10/2023 [facility] Work Phone: Comment on above: Expected: 06/10/2023, Expires: 3 Start: 06-10-2023 End: 08-10-2023 Comprehensive metabolic 2000 panel - Serum or Plasma COMP METABOLIC PANEL Lab Routine Hypercholesteremia Expected: 06/10/2023, Expires: 08/10/2023 [facility] Work Phone: Comment on above: Expected: 06/10/2023, Expires: 3 Start: 06-10-2023 End: 08-10-2023 Hemoglobin A1c in Blood HGB A1C Lab Routine Diabetes mellitus type 2 with ketoacidosis, uncontrolled (HCC) Expected: 06/10/2023, Expires: 08/10/2023 [facility] Work Phone: Comment on above: Expected: 06/10/2023, Expires: 3 Start: 06-10-2023 End: 08-10-2023 Lipid 1996 panel - Serum or Plasma LIPID PANEL BASIC Lab Routine Hypercholesteremia Expected: 06/10/2023, Expires: 08/10/2023 [facility] Work Phone: Comment on above: Expected: 06/10/2023, Expires: 3 Start: 06-10-2023 End: 08-10-2023 Thyrotropin [Units/volume] in Serum or Plasma TSH BLD Lab Routine Diabetes mellitus type 2 with ketoacidosis, uncontrolled (HCC) Expected: 06/10/2023, Expires: 08/10/2023 [facility] Work Phone: Comment on above: Expected: 06/10/2023, Expires: 3 Start: 06-10-2023 End: 08-10-2023 Urate [Mass/volume] in Serum or Plasma URIC ACID BLOOD Lab Routine Gout, unspecified cause, unspecified chronicity, unspecified site Expected: 06/10/2023, Expires: 08/10/2023 [facility] Work Phone: Comment on above: Expected: 06/10/2023, Expires: 3 Start: 05-29-2023 Influenza vaccination [facility] Start: 04-02-2023 3 comp foot exam completed DIABETIC FOOT EXAM [facility] Start: 04-02-2023 Adult depression screening assessment DEPRESSION SCREENING [facility] Start: 04-02-2023 ANNUAL PCP TEAM CHRONIC DISEASE VISIT ANNUAL PCP TEAM CHRONIC DISEASE VISIT [facility] Start: 04-02-2023 BP CONTROLLED (<130/80) BP CONTROLLED (<130/80) [facility] Start: 03-27-2023 Influenza vaccination INFLUENZA (#1) [facility] Comment on above: Postponed from 05/29/2022 (Declined at t his time) Start: 02-09-2023 End: 01-28-2024 Ct thorax w/o contrast material CT CHEST WO IVCON Radiology Routine Lung nodules Expected: 02/09/2023, Expires: 01/28/2024 [facility] Work Phone: Comment on above: Expected: 02/09/2023, Expires: 4 Start: 01-25-2023 Hemoglobin A1c/Hemoglobin.total in Blood HBA1C [facility] Start: 12-30-2022 End: 03-01-2023 CBC panel - Blood by Automated count CBC Lab Routine Uncontrolled type 2 diabetes mellitus with hyperglycemia (HCC) Expected: 12/30/2022, Expires: 03/01/2023 [facility] Work Phone: Comment on above: Expected: 12/30/2022, Expires: 3 Start: 12-30-2022 End: 03-01-2023 Comprehensive metabolic 2000 panel - Serum or Plasma COMP METABOLIC PANEL Lab Routine Uncontrolled type 2 diabetes mellitus with hyperglycemia (HCC) Expected: 12/30/2022, Expires: 03/01/2023 [facility] Work Phone: Comment on above: Expected: 12/30/2022, Expires: 3 Start: 12-30-2022 End: 03-01-2023 Hemoglobin A1c in Blood HGB A1C Lab Routine Uncontrolled type 2 diabetes mellitus with hyperglycemia (HCC) Expected: 12/30/2022, Expires: 03/01/2023 [facility] Work Phone: Comment on above: Expected: 12/30/2022, Expires: 3 Start: 12-30-2022 Hemoglobin A1c/Hemoglobin.total in Blood HBA1C [facility] Start: 12-28-2022 Hepatitis B screening URINE ALBUMIN:CREATININE RATIO [facility] Start: 12-28-2022 Hepatitis B surface antibody level LDL CHOLESTEROL [facility] Start: 12-25-2022 ANNUAL PCP TEAM CHRONIC DISEASE VISIT ANNUAL PCP TEAM CHRONIC DISEASE VISIT [facility] Start: 12-25-2022 BP CONTROLLED (<130/80) BP CONTROLLED (<130/80) [facility] Start: 11-22-2022 End: 01-22-2023 FUNGAL BATTERY CF FUNGAL BATTERY CF Lab Routine Lung nodules Expected: 11/22/2022, Expires: 01/22/2023 [facility] Work Phone: Comment on above: Expected: 11/22/2022, Expires: 3 Start: 11-22-2022 End: 01-22-2023 FUNGAL BATTERY ID FUNGAL BATTERY ID Lab Routine Lung nodules Expected: 11/22/2022, Expires: 01/22/2023 [facility] Work Phone: Comment on above: Expected: 11/22/2022, Expires: 3 Start: 11-22-2022 End: 01-22-2023 HISTOPLASMA AG URINE HISTOPLASMA AG URINE Lab Routine Lung nodules Expected: 11/22/2022, Expires: 01/22/2023 [facility] Work Phone: Comment on above: Expected: 11/22/2022, Expires: 3 Start: 10-30-2022 End: 11-29-2023 Ct thorax w/o contrast material CT CHEST WO IVCON Radiology Routine Lung nodules Expected: 10/30/2022, Expires: 11/29/2023 [facility] Work Phone: Comment on above: Expected: 10/30/2022, Expires: 4 Start: 10-24-2022 End: 12-24-2022 25-hydroxyvitamin D3 [Mass/volume] in Serum or Plasma VITAMIN D 25 HYDROXY Lab Routine Class 3 severe obesity with serious comorbidity and body mass index (BMI) of 40.0 to 44.9 in adult, unspecified obesity type (HCC) Expected: 10/24/2022, Expires: 12/24/2022 [facility] Work Phone: Comment on above: Expected: 10/24/2022, Expires: 3 Start: 10-24-2022 End: 12-24-2022 CBC W Auto Differential panel - Blood CBC + DIFF Lab Routine Class 3 severe obesity with serious comorbidity and body mass index (BMI) of 40.0 to 44.9 in adult, unspecified obesity type (HCC) Expected: 10/24/2022, Expires: 12/24/2022 [facility] Work Phone: Comment on above: Expected: 10/24/2022, Expires: 3 Start: 10-24-2022 End: 12-24-2022 Cobalamin (Vitamin B12) [Mass/volume] in Serum or Plasma VITAMIN B12 BLOOD Lab Routine Class 3 severe obesity with serious comorbidity and body mass index (BMI) of 40.0 to 44.9 in adult, unspecified obesity type (HCC) Expected: 10/24/2022, Expires: 12/24/2022 [facility] Work Phone: Comment on above: Expected: 10/24/2022, Expires: Start: 10-24-2022 End: 12-24-2022 Comprehensive metabolic 2000 panel - Serum or Plasma COMP METABOLIC PANEL Lab Routine Class 3 severe obesity with serious comorbidity and body mass index (BMI) of 40.0 to 44.9 in adult, unspecified obesity type (HCC) Expected: 10/24/2022, Expires: 12/24/2022 [facility] Work Phone: Comment on above: Expected: 10/24/2022, Expires: Start: 10-24-2022 End: 12-24-2022 Ferritin [Mass/volume] in Serum or Plasma FERRITIN BLD Lab Routine Class 3 severe obesity with serious comorbidity and body mass index (BMI) of 40.0 to 44.9 in adult, unspecified obesity type (HCC) Expected: 10/24/2022, Expires: 12/24/2022 [facility] Work Phone: Comment on above: Expected: 10/24/2022, Expires: Start: 10-24-2022 End: 12-24-2022 Folate [Mass/volume] in Serum or Plasma FOLATE SERUM Lab Routine Class 3 severe obesity with serious comorbidity and body mass index (BMI) of 40.0 to 44.9 in adult, unspecified obesity type (HCC) Expected: 10/24/2022, Expires: 12/24/2022 [facility] Work Phone: Comment on above: Expected: 10/24/2022, Expires: Start: 10-24-2022 End: 12-24-2022 Hemoglobin A1c in Blood HGB A1C Lab Routine Class 3 severe obesity with serious comorbidity and body mass index (BMI) of 40.0 to 44.9 in adult, unspecified obesity type (HCC) Expected: 10/24/2022, Expires: 12/24/2022 [facility] Work Phone: Comment on above: Expected: 10/24/2022, Expires: Start: 10-24-2022 End: 12-24-2022 Iron and Iron binding capacity panel - Serum or Plasma IRON + TIBC Lab Routine Class 3 severe obesity with serious comorbidity and body mass index (BMI) of 40.0 to 44.9 in adult, unspecified obesity type (HCC) Expected: 10/24/2022, Expires: 12/24/2022 [facility] Work Phone: Comment on above: Expected: 10/24/2022, Expires: Start: 10-24-2022 End: 12-24-2022 Lipid 1996 panel - Serum or Plasma LIPID PANEL BASIC Lab Routine Class 3 severe obesity with serious comorbidity and body mass index (BMI) of 40.0 to 44.9 in adult, unspecified obesity type (HCC) Expected: 10/24/2022, Expires: 12/24/2022 [facility] Work Phone: Comment on above: Expected: 10/24/2022, Expires: Start: 10-24-2022 End: 12-24-2022 Natriuretic peptide.B prohormone N-Terminal [Mass/volume] in Serum or Plasma NT PRO BNP Lab Routine Class 3 severe obesity with serious comorbidity and body mass index (BMI) of 40.0 to 44.9 in adult, unspecified obesity type (HCC) Expected: 10/24/2022, Expires: 12/24/2022 [facility] Work Phone: Comment on above: Expected: 10/24/2022, Expires: Start: 10-24-2022 End: 12-24-2022 NICOTINE & METAB, UR NICOTINE & METAB, UR Lab Routine Class 3 severe obesity with serious comorbidity and body mass index (BMI) of 40.0 to 44.9 in adult, unspecified obesity type (HCC) Expected: 10/24/2022, Expires: 12/24/2022 [facility] Work Phone: Comment on above: Expected: 10/24/2022, Expires: 3 Start: 10-24-2022 End: 12-24-2022 Thyrotropin [Units/volume] in Serum or Plasma TSH BLD Lab Routine Class 3 severe obesity with serious comorbidity and body mass index (BMI) of 40.0 to 44.9 in adult, unspecified obesity type (HCC) Expected: 10/24/2022, Expires: 12/24/2022 [facility] Work Phone: Comment on above: Expected: 10/24/2022, Expires: 3 Start: 10-24-2022 End: 12-24-2022 TOX SCREEN ROUT UR TOX SCREEN ROUT UR Lab Routine Class 3 severe obesity with serious comorbidity and body mass index (BMI) of 40.0 to 44.9 in adult, unspecified obesity type (HCC) Expected: 10/24/2022, Expires: 12/24/2022 [facility] Work Phone: Comment on above: Expected: 10/24/2022, Expires: 3 Start: 10-24-2022 End: 12-24-2022 VITAMIN B1 (THIAMINE), WHOLE BLOOD VITAMIN B1 (THIAMINE), WHOLE BLOOD Lab Routine Class 3 severe obesity with serious comorbidity and body mass index (BMI) of 40.0 to 44.9 in adult, unspecified obesity type (HCC) Expected: 10/24/2022, Expires: 12/24/2022 [facility] Work Phone: Comment on above: Expected: 10/24/2022, Expires: 3 Start: 09-02-2022 COVID-19 VACCINE (#1) COVID-19 VACCINE (#1) [facility] Comment on above: Postponed from 1976 (Declined at t his time) Start: 09-02-2022 COVID-19 VACCINE (1) COVID-19 VACCINE (1) [facility] Comment on above: Postponed from 1981 (Declined at t his time) Start: 06-21-2022 Hepatitis B surface antibody level LDL CHOLESTEROL [facility] Start: 05-31-2022 Glaucoma screening Dilated Retinal Exam [facility] Start: 05-31-2022 Hepatitis C antibody, confirmatory test DILATED RETINAL EXAM [facility] Start: 05-29-2022 Influenza vaccination [facility] Start: 03-29-2022 Hemoglobin A1c/Hemoglobin.total in Blood HBA1C [facility] Start: 03-27-2022 Influenza vaccination INFLUENZA (#1) [facility] Comment on above: Postponed from 05/29/2021 (Declined at t his time) Start: 03-13-2022 3 comp foot exam completed DIABETIC FOOT EXAM [facility] Start: 03-11-2022 Adult depression screening assessment DEPRESSION SCREENING [facility] Start: 12-25-2021 End: 02-24-2022 ALBUMIN/CREAT RATIO RND UR ALBUMIN/CREAT RATIO RND UR Lab Routine Expected: 12/25/2021, Expires: 02/24/2022 [facility] Work Phone: Comment on above: Expected: 12/25/2021, Expires: 2 Start: 12-25-2021 End: 02-24-2022 CBC panel - Blood by Automated count CBC Lab Routine Expected: 12/25/2021, Expires: 02/24/2022 [facility] Work Phone: Comment on above: Expected: 12/25/2021, Expires: 2 Start: 12-25-2021 End: 02-24-2022 Comprehensive metabolic 2000 panel - Serum or Plasma COMP METABOLIC PANEL Lab Routine Expected: 12/25/2021, Expires: 02/24/2022 [facility] Work Phone: Comment on above: Expected: 12/25/2021, Expires: 2 Start: 12-25-2021 End: 02-24-2022 Hemoglobin A1c/Hemoglobin.total in Blood HGB A1C Lab Routine Expected: 12/25/2021 (Approximate), Expires: 02/24/2022 [facility] Work Phone: Comment on above: Expected: 12/25/2021 (Approximate), Expi res: 02/24/2022 Start: 12-25-2021 End: 02-24-2022 LIPID PANEL BASIC LIPID PANEL BASIC Lab Routine Hyperlipidemia with target LDL less than 100 Expected: 12/25/2021, Expires: 02/24/2022 [facility] Work Phone: Comment on above: Expected: 12/25/2021, Expires: 2 Start: 12-25-2021 End: 02-24-2022 Urinalysis complete panel - Urine URINALYSIS, WITH MICROSCOPIC Lab Routine Expected: 12/25/2021, Expires: 02/24/2022 [facility] Work Phone: Comment on above: Expected: 12/25/2021, Expires: 2 Start: 12-01-2021 Hemoglobin A1c/Hemoglobin.total in Blood HBA1C [facility] Start: 2021 COLOGUARD (FIT-DNA) COLOGUARD (FIT-DNA) [facility] Start: 2021 Colonoscopy COLONOSCOPY [facility] Start: 2021 COLORECTAL CANCER SCREENING COLORECTAL CANCER SCREENING [facility] Start: [address] COLONOGRAPHY [facility] Start: 2021 FECAL OCCULT BLOOD FECAL OCCULT BLOOD [facility] Start: 2021 Screening for malignant neoplasm of colon [facility] Start: 2021 SIGMOIDOSCOPY SIGMOIDOSCOPY [facility] Start: 02-13-2020 Hepatitis B screening URINE ALBUMIN:CREATININE RATIO [facility] Start: 09-15-2013 PNEUMOCOCCAL (2 - PCV) PNEUMOCOCCAL (2 - PCV) [facility] Start: 09-15-2013 Pneumococcal vaccination [facility] Start: 1995 Hepatitis B Vaccine (1 of 3 - 19+ 3-dose series) Hepatitis B Vaccine (1 of 3 - 19+ 3-dose series) [facility] Start: 1994 Depression Screening Depression Screening [facility] Start: 1994 HEPATITIS C SCREENING HEPATITIS C SCREENING [facility] Start: 1994 Hepatitis C screening Hepatitis C Screening [facility] Start: 1994 HIV SCREENING HIV SCREENING [facility] Start: 1994 HIV screening HIV Screening [facility] Start: 1976 HEPATITIS B (1 of 3 - 3-dose series) HEPATITIS B (1 of 3 - 3-dose series) [facility] Start: 1976 Hepatitis B Vaccine (1 of 3 - 3-dose series) Hepatitis B Vaccine (1 of 3 - 3-dose series) [facility] End: 10-24-2023 ECG COMPLETE ECG COMPLETE ECG Routine Class 3 severe obesity with serious comorbidity and body mass index (BMI) of 40.0 to 44.9 in adult, unspecified obesity type (HCC) 1 Occurrences starting 10/24/2022 until 10/24/2023 [facility] Work Phone: Comment on above: 1 Occurrences starting 10/24/2022 until 10/24/2023 End: 10-28-2022 ECG COMPLETE ECG COMPLETE ECG Routine Class 3 severe obesity with serious comorbidity and body mass index (BMI) of 40.0 to 44.9 in adult, unspecified obesity type (HCC) 1 Occurrences starting 10/28/2022 until 10/28/2022 [facility] Work Phone: Comment on above: 1 Occurrences starting 10/28/2022 until 10/28/2022 End: 10-24-2023 HOME SLEEP APNEA TEST (HSAT) HOME SLEEP APNEA TEST (HSAT) Procedures Routine Class 3 severe obesity with serious comorbidity and body mass index (BMI) of 40.0 to 44.9 in adult, unspecified obesity type (HCC) MIKKI (obstructive sleep apnea) 1 Occurrences starting 10/24/2022 until 10/24/2023 [facility] Work Phone: Comment on above: 1 Occurrences starting 10/24/2022 until 10/24/2023 End: 12-19-2023 PAP TITRATION PSG (CPAP, BIPAP, ASV) PAP TITRATION PSG (CPAP, BIPAP, ASV) Procedures Routine MIKKI (obstructive sleep apnea) 1 Occurrences starting 11/19/2022 until 12/19/2023 [facility] Work Phone: Comment on above: 1 Occurrences starting 11/19/2022 until 12/19/2023 End: 11-23-2023 Radiologic exam chest 2 views XR CHEST 2V FRONTAL/LAT Radiology Routine Class 3 severe obesity with serious comorbidity and body mass index (BMI) of 40.0 to 44.9 in adult, unspecified obesity type (HCC) 1 Occurrences starting 10/24/2022 until 11/23/2023 [facility] Work Phone: Comment on above: 1 Occurrences starting 10/24/2022 until 11/23/2023 TESTOSTERONE, FREE A ND TOTAL TESTOSTERONE, FREE AND TOTAL Lab Routine Low testosterone 01/27/2024 7:53 AM EDT [facility] End: 11-23-2023 Us abdominal real time w/image limited US ABD RT UPPER QUADRANT Radiology Routine Class 3 severe obesity with serious comorbidity and body mass index (BMI) of 40.0 to 44.9 in adult, unspecified obesity type (HCC) 1 Occurrences starting 10/24/2022 until 11/23/2023 [facility] Work Phone: Comment on above: 1 Occurrences starting 10/24/2022 until 11/23/2023 [facility] Immunizations Immunization Date Immunization Notes Care Provider Bry kaye 08-11-2018 influenza virus vacc ine, unspecified formulation Ean Luu DO Work Phone: [facility] 02-05-2016 tetanus toxoid, redu ana diphtheria toxoid, and acellular pertussis vaccine, adsorbed Ean Luu DO Work Phone: [facility] Work Phone: 09-15-2012 pneumococcal polysaccharide vaccine, 23 valent Ean Luu DO Work Phone: [facility] Payers Date Payer Category Payer Unknown [id number] 2024 Self-pay 2024 Unknown [id number] 2023 Private Health Insurance [id number] 2023 Unknown [id number] 2020 Medicaid [id number] 2018 Unknown [facility] GENERIC [id number]-Present [phone] [address] [place] [address] WC [id number] 2018 Medicaid [employer] [id number] 2018-Present [phone] [address] [place] [address] Medicaid [id number] 2018 Medicaid [id number] Unknown [id number] Unknown [id number] Unknown [id number] Unknown [id number] Unknown [id number] Social History Date Type Detail Facility Start: 07-09-2022 End: 03-25-2024 Tobacco smoking status NEIS Never smoked tobacco [facility] Work Phone: Start: 12-25-2021 End: 03-24-2025 Alcohol intake Current non-drinker of alcohol (finding) [facility] Start: 06-26-2021 End: 12-31-2022 History SDOH Alcohol Frequency 1 [facility] Start: 06-26-2021 History SDOH Alcohol Std Drinks 98 [facility] Start: 06-26-2021 End: 12-31-2022 History SDOH Social Connections Phone 4 [facility] Start: 06-26-2021 End: 12-31-2022 History SDOH Social Connections [facility] 3 [facility] Start: 06-26-2021 End: 12-31-2022 History SDOH Physical Activity DPW 0 [facility] Start: 06-26-2021 End: 12-31-2022 History SDOH Stress 2 [facility] Start: 02-01-2020 Education 15 [facility] Start: 1975 Sex Assigned At Not on file [facility] Start: 12-15-2021 End: 07-09-2022 Exposure to SARS-CoV-2 (event) Not sure [facility] Work Phone: Start: 07-09-2022 End: 03-25-2024 Tobacco use and exposure Smokeless tobacco non-user [facility] Start: 12-31-2022 End: 02-13-2023 History of Social function [facility] Start: 12-31-2022 End: 02-13-2023 Social connection and isolation panel [facility] Do you belong to any clubs or organizations such as pentecostalism groups, unions, fraternal or athletic groups, or school groups? Yes [facility] Are you now , , , , never or living with a partner? [facility] How often to you hav e a drink containing alcohol? Never [facility] How many standard dr inks containing alcohol do you have on a typical day? Patient does not drink [facility] How hard is it for y ou to pay for the very basics like food, housing, medical care, and heating Not very hard [facility] Do you feel stress - tense, restless, nervous, or anxious, or unable to sleep at night because your mind is troubled all the time - these days [OSQ] Only a little [facility] (I/We) worried bety er (my/our) food would run out before (I/we) got money to buy more. Never true [facility] In the past 12 month s, was there a time when you were not able to pay the mortgage or rent on time? No [facility] How hard is it for y ou to pay for the very basics like food, housing, medical care, and heating Somewhat hard [facility] The food that (I/we) bought just didn't last, and (I/we) didn't have money to get more. DK or Refused [facility] Do you feel stress - tense, restless, nervous, or anxious, or unable to sleep at night because your mind is troubled all the time - these days [OSQ] To some extent [facility] NEGATED: Highlighted rowStart: AGUILARF History of tobacco use Passive smoker [facility] Medical Equipment Procedure Code Equipment Code Equipment Origin al Text Equipment Identifier Dates [id number], [id number], [id number], [id number] Start: 12-09-2010 End: 03-25-2024 Comment on above: Use as directed. Use as instructed Functional Status Date Assessment Result Facility 03-23-2015 Are you deaf, or do you have serious difficulty hearing No 03/23/2015 3:08 PM EDT Sonja Curiel LPN No [facility] 03-23-2015 Are you blind, or do you have serious difficulty seeing, even when wearing glasses No 03/23/2015 3:08 PM EDT Sonja Curiel LPN No [facility] 03-23-2015 Do you have serious difficulty walking or climbing stairs No 03/23/2015 3:08 PM EDT Sonja Curiel LPN No [facility] 03-23-2015 Do you have difficul ty dressing or bathing No 03/23/2015 3:08 PM EDT Sonja Curiel LPN No [facility] 03-23-2015 Because of a physica l, mental, or emotional condition, do you have difficulty doing errands alone such as visiting a physician's office or shopping No 03/23/2015 3:08 PM EDT Sonja Curiel LPN No [facility] Mental Status Date Assessment Result Facility 03-23-2015 Because of a physica l, mental, or emotional condition, do you have serious difficulty concentrating, remembering, or making decisions No 03/23/2015 3:08 PM EDT Sonja Curiel LPN No [facility] Clinical Notes 01-25-2016 to 03-24-2025 Kisha Hill APRN.TONGUE STITCHER - 03/24/2025 6:42 PM EDTTelephone Encounter - [...] up. Patient declined squad, will transport to [facility] Kisha Hill APRN.ONDINA documented in this encounter [facility] 03-06-2025 Telephone encounter Note Prescription Refill Information [...] Lua LPN March 06, 2025 12:40 PM [facility] 03-06-2025 Miscellaneous Notes Prescription Refill Information The [...] 2025 12:40 PM documented in this encounter [facility] 12-06-2024 Note HNO ID: [id number] Author: EAN LUU, DO Service: ? Author [...] negative. PE: 12/06/ (more content not included)... [facility] 12-06-2024 History of Present illness Narrative [...] agreed with the plan. Ean Luu DO [address] [place] [address] documented in this encounter [facility] 09-01-2024 Note HNO ID: [id number] Author: EAN LUU DO Service: ? 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 Mr. Interiano has past history [...] No lisinopril (ZESTRIL) (more content not included)... 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 Mr. Interiano has past history [...] Take 1 tablet by mouth once daily. ONEXfireUCH ULTRA2 METER 1 Each by VIA DEVICE [...] with the plan. Ean Luu DO [address] [place] [address] documented in this encounter [facility] 07-15-2024 Telephone encounter Note Prescription Refill Information [...] Villalobos LPN July 15, 2024 8:00 AM [facility] 07-15-2024 Miscellaneous Notes Prescription Refill Information The [...] 2024 8:00 AM documented in this encounter [facility] 05-17-2024 Instructions Ean Luu DO - 05/17/2024 3:46 PM EDT Decrease dose of glipizide to 1/2 tablet with supper, down from 10 mg to 5 mg. EPSOM salt soaks- for 20 minutes in the evening with 1 cup of epsom salts. documented in this encounter [facility] 05-17-2024 Note HNO ID: [id number] Author: EAN LUU DO Service: ? Author [...] up appt for surgical consideration yet with News Reel Cameraman ERECTILE DYSFUNCTION, has been tried on multple different medications without a lot of benefit. Was seen by Ultrasound Coordinator for opinion for testosterone replacement, not interested [...] Use with blood (more content not included)... [facility] 05-17-2024 History of Present illness Narrative [...] up appt for surgical consideration yet with News Reel Cameraman ERECTILE DYSFUNCTION, has been tried on multple different medications without a lot of benefit. 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 Discussed risks, benefits, alternatives, and potential side effects of medications. Patient expressed understanding and agreed with the plan. Ean Luu DO [address] [place] [address] documented in this encounter [facility] 05-02-2024 Telephone encounter Note Patient returns call and notified that fasting lab orders have been placed. Patient will have completed prior to appointment 05/17. Jaci Silva RN [facility] 05-02-2024 Miscellaneous Notes Patient returns call and [...] [place] RN documented in this encounter [facility] 05-02-2024 Telephone encounter Note Called and left a voicemail for the Patient to call back and ask for a nurse to receive the providers message. Philomena Scott RN [facility] 05-02-2024 Telephone encounter Note Fasting labs ordered. Tj Del Angel PA-C 05/02/2024 [facility] 05-02-2024 Telephone encounter Note Patient calling to ask if he needs any labs prior to 3 month follow up appointment on 05/17? Advised PCP out of office this week. He says he is okay to wait for response. [place], RN [facility] 04-19-2024 Telephone encounter Note Prescription Refill Information [...] Marcum LPN April 19, 2024 10:15 AM [facility] 04-19-2024 Miscellaneous Notes Prescription Refill Information The [...] 2024 10:15 AM documented in this encounter [facility] 03-25-2024 Telephone encounter Note Pt informed Lisa Valles MA [facility] 03-25-2024 Miscellaneous Notes Pt informed Lisa Valles MA Would recommend focusing on weight loss until follow-up appointment with Dr. Luu in April to further discuss. Thank you, Jenn Sotelo APRN.TONGUE STITCHER Patient reports he saw the ethylbenzene oxidizer, and was informed his testosterone numbers are fine and he doesn't need treatment. Reports he is feeling very frustrated right now. Reports he is having energy problems, sexual problems and doesn't know what to do now. Reports he is working on weight. Please advise patient. documented in this encounter [facility] 03-25-2024 Telephone encounter Note Would recommend focusing on weight loss until follow-up appointment with Dr. Luu in April to further discuss. Thank you, Jenn Sotelo APRN.TONGUE STITCHER [facility] 03-25-2024 Telephone encounter Note Patient reports he saw the ethylbenzene oxidizer, and was informed his testosterone numbers are fine and he doesn't need treatment. Reports he is feeling very frustrated right now. Reports he is having energy problems, sexual problems and doesn't know what to do now. Reports he is working on weight. Please advise patient. [facility] 03-25-2024 Note HNO ID: [id number] Author: CATRINA LOFTON MD Service: ? Author [...] For insomnia (Patient (more content not included)... [facility] 03-25-2024 History of Present illness Narrative [...] on File Prior to Visit Medication Sig AlphionUCH ULTRA2 METER 1 Each by VIA DEVICE [...] Abs Lymph 1.00 - 4.00 k/uL 1.45 Sibley% % 6.3 Abs Sibley <0.87 k/uL 0.56 Eosin% % 3.6 Abs [...] which included preparing to see the patient, enuz-sw-glnu patient care, completing clinical documentation, obtaining and/or reviewing separately obtained history, performing a medically appropriate examination, counseling and educating the patient/family/caregiver, ordering medications, tests, or procedures, and independently interpreting results (not separately reported). Catrina Lofton MD Endocrinology Associate Staff [facility] Endocrinology and Metabolism [place] [phone] documented in this encounter [facility] 03-16-2024 Telephone encounter Note JACE-02/10/24 Labs-01/27/24Jul-05/17/24 Suha Villalobos LPN [facility] 03-16-2024 Miscellaneous Notes JACE-02/10/24 Labs-01/27/24Jul-05/17/24 Suha Villalobos LPN documented in this encounter [facility] 03-07-2024 Telephone encounter Note Prescription Refill Information [...] Chambers RN March 07, 2024 9:59 AM [facility] 03-07-2024 Miscellaneous Notes Prescription Refill Information The [...] 2024 9:59 AM documented in this encounter [facility] 03-07-2024 Note HNO ID: [id number] Author: PATRICK RUBIN MD Service: ? Author [...] sugars Patrick Rubin MD 03/07/2024 8:11 AM [facility] 03-07-2024 History of Present illness Narrative [...] as needed (nasal dryness). Lancets (FREESTYLE LANCETS) [facility] lancets Use as instructed blood sugar diagnostic (FREESTYLE TEST) [facility] test strip Use [...] 03/07/2024 8:11 AM documented in this encounter [facility] 02-23-2024 Note HNO ID: [id number] Author: PATRICK RUBIN MD Service: ? Author [...] as needed (nasal dryness). Lancets (FREESTYLE LANCETS) [facility] lancets Use as instructed blood sugar [facility] as [facility]. No [...] Out Discussion: C (more content not included)... [facility] 02-23-2024 History of Present illness Narrative [...] as needed (nasal dryness). Lancets (FREESTYLE LANCETS) [facility] lancets Use as instructed blood sugar diagnostic (FREESTYLE TEST) [facility] test strip Use [...] 02/23/2024 6:39 PM documented in this encounter [facility] 02-10-2024 History of Present illness Narrative Chief [...] agreeable to treatment plan. Jenn Burgos APRN.ONDINA [address] [place] [address] documented in this encounter [facility] 02-10-2024 Note HNO ID: [id number] Author: JENN SOTELO APRN.CNP Service: ? Author [...] as needed (nasal dryness). Lancets (FREESTYLE LANCETS) [facility] lancets Use as instructed blood sugar diagnostic (FREESTYLE TEST) [facility] test strip Use as directed. No current facility-administered medications on file prior to visit. Social History Social History (more content not included)... [facility] 02-04-2024 Telephone encounter Note Pt informed, verbalized understanding. Please assist with scheduling. Lisa Valles MA [facility] 02-04-2024 Miscellaneous Notes Pt informed, verbalized understanding. Please assist with scheduling. Lisa Valles MA Please let him know that his testosterone levels are still low normal. Recommend follow up with Urologist or ethylbenzene oxidizer for opinion if interested in taking testosterone hormone Ean Luu DO documented in this encounter [facility] 02-03-2024 Telephone encounter Note Please let him know that his testosterone levels are still low normal. Recommend follow up with Urologist or ethylbenzene oxidizer for opinion if interested in taking testosterone hormone Ean Luu DO [facility] 02-01-2024 Telephone encounter Note Patient has been [...] Please advise. Thank you. Betzaida Hyman MA. [facility] 02-01-2024 Miscellaneous Notes Patient has been identified [...] Betzaida Hyman MA. documented in this encounter [facility] 01-27-2024 Telephone encounter Note Noted. Thank you, Jenn Sotelo APRN.TONGUE STITCHER [facility] 01-27-2024 Miscellaneous Notes Noted. Thank you, Jenn Sotelo APRN.TONGUE STITCHER Pt called and is notified of providers [...] Abs Lymph 1.00 - 4.00 k/uL 1.45 Sibley% % 6.3 Abs Sibley <0.87 k/uL 0.56 Eosin% % 3.6 Abs [...] High (L) Low documented in this encounter [facility] 01-26-2024 Telephone encounter Note Pt called and is notified of providers results and instructions. Pt voices understanding. Pt scheduled recheck of testosterone levels. Pt states he does not want to start another medication at this time for his uncontrolled diabetes. Philomena Scott RN [facility] 01-26-2024 Telephone encounter Note Please inform patient [...] insulin daily as injection Ean Luu DO [facility] 01-26-2024 Telephone encounter Note Patient calling asking [...] Abs Lymph 1.00 - 4.00 k/uL 1.45 Sibley% % 6.3 Abs Sibley <0.87 k/uL 0.56 Eosin% % 3.6 Abs [...] ng/mL 0.49 Legend: (H) High (L) Low [facility] 01-15-2024 Note HNO ID: [id number] Author: EAN LUU, DO Service: ? Author [...] by mouth once daily. Lancets (FREESTYLE LANCETS) [facility] lancets Use as instructed blood sugar diagnostic (FREESTYLE TEST) Misc test strip Use as directed. mupirocin (BACTROBAN) 2 % ointment Apply to affected area two times (more content not included)... [facility] 01-15-2024 History of Present illness Narrative [...] by mouth once daily. Lancets (FREESTYLE LANCETS) [facility] lancets Use as instructed blood sugar diagnostic (FREESTYLE TEST) [facility] test strip Use [...] agreed with the plan. Ean Luu DO [address] [place] [address] documented in this encounter [facility] 01-15-2024 Miscellaneous Notes Patient has been identified [...] Lisa Valles MA. documented in this encounter [facility] 08-03-2023 Miscellaneous Notes Pharmacy verified in Epic [...] advise. Lilly Patel documented in this encounter [facility] 07-16-2023 History of Present illness Narrative Patient [...] with the plan. Ean Luu DO [address] [place] [address] documented in this encounter [facility] 06-10-2023 Miscellaneous Notes Pt notified of instructions below. Pt verbalizes understanding. Imtiaz Marr LPN Please inform patient that his fasting labs and urine albumin are ordered to have drawn before his upcoming visit in office Ean Luu DO Has appt 07/15/23 & asking if he is due for labs? Please advise pt. Radha Loera LPN documented in this encounter [facility] 05-18-2023 Miscellaneous Notes Patient has been identified by name and date of : Yes Requested Prescriptions Pending Prescriptions Disp Refills allopurinol (ZYLOPRIM) 300 mg tablet 90 tablet 3 Sig: Take 1 tablet by mouth once daily. JACE-01/07/23 Labs-10/27/22 NOV-07/15/23 RX INSTRUCTIONS: Patient aware RX will be sent to pharmacy. No need to notify patient. Breannlane Mora documented in this encounter [facility] 04-24-2023 Miscellaneous Notes Patient calls and notified of provider response. Patient voiced understanding. Barb Duarte RN Left message to return call. This isn't a procedure that can be done without insurance coverage due to would then be out of pocket, unless this is what patient is interested in discussing with financial services manager Ean Luu DO Patient reports he had a change of insurance and insurance denied the Bariatric procedure. Asking pcp if you know of any other options for him to get this procedure? Please advise patient. documented in this encounter [facility] 04-02-2023 Miscellaneous Notes Patient has been identified [...] advise. Deepa Salas documented in this encounter [facility] 02-28-2023 Miscellaneous Notes Noted, will await callback [...] no been updated. Received PA request from [employer] for Farxiga. Patient verified new insurance listed below. [facility] ID [id number] Group [id number] Member services# Farxiga is not covered and [...] Shara Patel Ma documented in this encounter [facility] 02-25-2023 Miscellaneous Notes Order signed for pressure adjust. documented in this encounter [facility] 02-24-2023 Miscellaneous Notes Images from the original note were not included. documented in this encounter [facility] 02-09-2023 Miscellaneous Notes Pt informed, verbalized understanding. [...] called and went to the pharmacy to pickling solution maker medication Januvia and was told pt no longer has [employer] insurance. Asking for something cheaper. Please advise . Mckenna Hopkins LPN documented in this encounter [facility] 01-07-2023 History of Present illness Narrative Patient presents with: F/U 3 Month HPI: Roe nIteriano is a 47 year old male who [...] as needed (nasal dryness). Lancets (FREESTYLE LANCETS) [facility] lancets Use as instructed blood sugar diagnostic (FREESTYLE TEST[facility] Use as directed. diclofenac [...] with the plan. Ean Luu DO [address] [place] [address] documented in this encounter [facility] 01-07-2023 Miscellaneous Notes Patient has been identified [...] Patrick Leroy LPN documented in this encounter [facility] 01-06-2023 History of Present illness Narrative VIRTUAL VISIT PROGRESS NOTE This is a virtual visit using Ariagora video visit. It required patient-provider interaction for the medical decision making as documented below. I have communicated my name and active licensure. The patient's identity and physical location were verified at the time of this visit. Either the patient or their legal unit support representative has been informed of the risks [...] told several month wait for supplies from [employer] geodetic survey director. The following he has followed up with [...] which included preparing to see the patient, isjg-mw-alvh patient care, completing clinical documentation, counseling and educating the patient/family/caregiver, communicating with other HCPs (not separately reported), communicating results to the patient/family/caregiver, and care coordination (not separately reported) Sathish Martínez MD 01/06/2023 9:02 AM documented in this encounter [facility] 12-10-2022 Miscellaneous Notes Called and left patient a voicemail and sent [email or web address] message Patient called regarding his CPAP machine. He spoke to the [employer] and they told him it would take 6-8 months to receive. Patient's insurance is running out at the end of the month. Patient asking if you can please contact the [employer]. documented in this encounter [facility] 12-01-2022 History of Present illness Narrative Sleep Study Check-In Documentation Date: December 01, 2022 Name: Roe Interiano Patient was accompanied by Self. Location: [place] Latex allergy: No Tape allergy: No Current medications were reviewed with the patient:Yes Sleep aid taken by patient for the sleep study: [place] of sleep aid: Not Applicable Procedure was [...] results Carlota Shabazz documented in this encounter [facility] 11-24-[address] - 11/24/2022 [...] pre-op liquid diet: Slim Fast Advanced Nutrition, [place] Breakfast Essentials Light Start mixed with fat [...] + 1 iron soft chew www.bariatricfusion.com - U.[employer]: 1 Bariatric Multivitamin (capsule or chewable) and 4269-0222 mg Calcium Citrate per day www.[employer] - Bariatric Choice: 1 Bariatric Multivitamin capsule and 3932-2095 mg Calcium Citrate per day OR 4 Complete Multivitamin chewables per day www.bariatricchoice.com - Bariatric Advantage: 2 Multivitamin chewables and 3 Calcium Citrate chewables per day www.bariatricadvantage.com - Celebrate: 2 Multivitamin (chewables) OR 3 Multivitamin (capsules) PLUS 3 Calcium Citrate soft chews per day AND Iron (chewable, capsule, or soft chew for a total of 45-60 mg per day) www.[employer] Mobile[employer]brateSaint [place] [employer] - Bariatric Pal: 1 Bariatric Multivitamin capsule and 2892-4770 mg Calcium Citrate per day www.eTelemetrybariatricpal.[employer]/collec tions/bariatric-vitamins Take multivitamin with iron 2 hours apart from calcium citrate, and take each dose of calcium 4 hours apart from each other Pre-op goal weight: 276 pounds Protein needs: 92 gm per day Nutrition Monitoring & Evaluation: 1-2 lbs wt loss/week Need for Follow up: 1 month, scheduling [phone] documented in this encounter [facility] 11-24-2022 Miscellaneous Notes Pt said he needed to think it over and he will discuss it with provider at his December appointment. Please inform patient that I would like him to have a colonoscopy for colon cancer screening Ean Luu DO documented in this encounter [facility] 11-24-2022 History of Present illness Narrative [facility] Nutrition Therapy: Virtual Consult - Initial Assessment [...] Your Guide to Surgery by next session https://my.[facility].org/-/ scassets/files/org/bariatric/guid es/bmiguidebook-february2020.ashx?la= en 2. Do not skip meals. 3. Use protein shake 1x per day to replace any skipped meals or for breakfast. Aim for shakes ~150-200 calories, ~15-20 grams of protein, <5 grams of total sugar. Here are a few examples of approved options for the 2 week pre-op liquid diet: Slim Fast Advanced Nutrition, [place] Breakfast Essentials Light Start mixed with fat [...] 1 Bariatric Multivitamin (capsule or chewable) and 7024-5334 mg Calcium Citrate per day www.[employer]ged.[employer] - Bariatric Choice: 1 Bariatric Multivitamin capsule and 9191-7256 mg Calcium Citrate per day OR 4 Complete Multivitamin chewables per day www.bariatricchoice.com - Bariatric Advantage: 2 Multivitamin chewables and 3 Calcium Citrate chewables per day www.bariatricadvantage.[employer] - Celebrate: 2 Multivitamin (chewables) OR 3 Multivitamin (capsules) PLUS 3 Calcium Citrate soft chews per day AND Iron (chewable, capsule, or soft chew for a total of 45-60 mg per day) www.[employer] - Bariatric Pal: 1 Bariatric Multivitamin capsule and 8493-8291 mg Calcium Citrate per day www.eTelemetrybariatricpal.[employer]/lavellc [place]/bariatric-vitamins Take multivitamin with iron 2 hours apart from calcium citrate, and take each dose of calcium 4 hours apart from each other Pre-op goal weight: 276 pounds Protein needs: 92 gm per day Nutrition Monitoring & Evaluation: 1-2 lbs wt loss/week Need for Follow up: 1 month, scheduling [phone] Patient presents for initial nutrition consult in [...] job and not including any routine exercise. [place] body weight: 169 lbs. Excess body weight: 119 lbs. Goal weight pre-op: 276 lbs. Protein needs estimated: 92 gm (1.2 g protein/kg IBW) Patient meets the National Institutes of Health guidelines for weight loss surgery and has [facility] Insurance therefore is required to complete 6 [...] TIME: 3:14 PM documented in this encounter [facility] 11-19-2022 Instructions Margaret Fofana APRN.TONGUE STITCHER - 11/19/2022 2:35 PM EST PLAN: - Will start Auto Bilevel PAP - I will have a prescription sent to a [employer] ([employer] medical equipment) company - Miya Leggett - who will be calling you in the next 1-2 weeks or so. Please call them directly or us if you do not hear from them in this time frame. - You should be eligible for new supplies approximately every 3-6 months, depending on your insurance coverage. - If your mask doesn't fit well, call the [employer] company before 30 days are up to get a new mask without an additional charge. - Insurance requires regular usage and periodic office follow ups for PAP therapy, to continue to cover supplies. INSURANCE REQUIREMENTS: - Your insurance requires a ighi-xd-uqys follow up visit within a 31-90 day [...] the central scheduling system for the [facility] [place] at [phone]. - If you are a [facility] patient, call [phone] for questions - Any other locations you have seen me at, please call [phone] opt [phone] for questions. - May use Message My Doc through My Chart for questions. - [facility] website: www.[facility].org/sleep About Your PAP Therapy Continuous Positive Airway [...] mask and headgear as instructed by the angio technologist or respiratory therapist. The mask should [...] thoroughly and dry with paper towels. Avoid economics instructor that contain fragrance or conditioners, as these [...] machine still fails to operate, please call [phone] or your home care company for assistance. [...] to last 9-12 months. Refer to the chef & owner s manual for more information. Important Safety [...] follow to watch a PAP education video: http://my.[facility].org/jenny e_care/services/home_respiratory_ therapy.aspx http://www.youtube.com/watch?v=pe J_epDGzEw http://my.[facility].org/bere rological_institute/sleep-disorde -center/treatment-services/pap- therapy.aspx documented in this encounter [facility] 11-19-2022 History of Present illness Narrative Images from the original note were not included. [facility] New Patient Evaluation PATIENT NAME: Roe Interiano DATE OF SERVICE: November 19, 2022 CONSULTING PROVIDER: Reba Vaughan [id number] [facility] [id number] REASON FOR CONSULT: Reba Vaughan sends the [...] He states he was on BiPAP through [employer], but insurance changed and no longer receiving [...] Obesity, Class III, BMI 40-49.9 (morbid obesity) ([facility]) Roe Interiano is a 47 year old [...] He states he was on BiPAP through [employer], but insurance changed and no longer receiving supplies. He had a mask that was improper fit and just ultimately stopped use. Discussed with patient: the physiology of OSAS, medical conditions associated with OSAS (DM, HTN, CAD, Depression, Stroke, Headache, MO) and treatment options (UPPP, Dental appliances, CPAP, Inspire). Advised patient to avoid activities that could harm self or others when tired/sleepy, including driving and/or operating heavy machinery. - PAP titration study per insurance requirement and assess need for BiPAP therapy - Will start Auto Bilevel PAP after results of PAP titration - I will have a prescription sent to a [employer] ([employer] medical equipment) company - Miya Leggett - who will be calling you in the next 1-2 weeks or so. Please call them directly or us if you do not hear from them in this time frame. - You should be eligible for new supplies approximately every 3-6 months, depending on your insurance coverage. - If your mask doesn't fit well, call the [employer] company before 30 days are up to get a new mask without an additional charge. - Insurance requires regular usage and periodic office follow ups for PAP therapy, to continue to cover supplies. INSURANCE REQUIREMENTS: - Your insurance requires a ftzn-ub-bizj follow up visit within a 31-90 day [...] which included preparing to see the patient, pwxb-kh-xhyf patient care, completing clinical documentation, obtaining and/or reviewing separately obtained history, performing a medically appropriate examination, counseling and educating the patient/family/caregiver, ordering medications, tests, or procedures, and communicating results to the patient/family/caregiver. documented in this encounter [facility] 11-13-2022 History of Present illness Narrative Radiology [...] 2022 10:29 AM documented in this encounter [facility] 11-04-2022 History of Present illness Narrative November 04, 2022 Standing PSG Orders signed in the last 90 days None Future PSG Orders signed in the last 90 days Ordered Auth. provider CONSULT TO SLEEP MEDICINE - ADULT [[id number]] 10/24/22 Reba Vaughan APRN.CNP Assoc. diagnoses: MIKKI [...] Lon Gentile MD 8:58 AM, 11/05/2022 [employer]# [id number] , date shipped out 11/04/22 Tracking mailout: [phone] Tracking return: [phone] November 04, 2022 An order has been received for Home Sleep Apnea Test (HSAT) from [facility] Staff. Visit prep complete. Comments :No The sleep study is scheduled for 11/05/22. Insurance: Payor: [facility] MEDICAID / Plan: [facility] MEDICAID / Product Type: Medicaid / Payer/Plan Subscr Sex Relation Sub. Ins. ID Effective Group Num 1. [facility] ME* ROE INTERIANO 1975 Male Self [id number] 10/29/22 [place] [address] 2. [facility] GEN* ROE INTERIANO 1975 Male Self [id number] 05/[birth year]18 [address], [facility] [address] Macarena Mosley documented in this encounter [facility] 11-04-2022 History and physical note BARIATRIC SURGERY NEW PATIENT EVALUATION Date: November 04, 2022 Time: 8:06 AM Name: Roe Interiano CHIEF COMPLAINT: initial evaluation for metabolic and bariatric surgery This is a virtual visit using Ariagora video visit. It required patient-provider interaction for [...] as needed (nasal dryness). Lancets (FREESTYLE LANCETS) [facility] lancets Use as instructed blood sugar diagnostic (FREESTYLE TEST) [facility] test strip Use [...] which included preparing to see the patient, udwu-um-vjnk patient care, completing clinical documentation, obtaining and/or reviewing separately obtained history, counseling and educating the patient/family/caregiver, communicating with other HCPs (not separately reported), communicating results to the patient/family/caregiver, and care coordination (not separately reported) Bariatric and Advanced Laparoscopic Surgery SIGNATURE: Sathish Martínez MD PATIENT NAME: Roe Interiano DATE: November 04, 2022 TIME: 8:06 AM documented in this encounter [facility] 10-30-2022 History of Present illness Narrative VIRTUAL VISIT PROGRESS NOTE This is a virtual visit using Ariagora video visit. It required patient-provider interaction for [...] use: No Drug use: No Purchasing for Yamsafer. Pets: outside dogs Current Outpatient Medications Medication [...] 2022 9:11 AM documented in this encounter [facility] 10-27-2022 History of Present illness Narrative Radiology [...] 2022 9:09 AM documented in this encounter [facility] 10-24-2022 History of Present illness Narrative BMI [...] YES ; CPAP YES Quality:adequate, Few awakenings Lath Hand Work? 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 Snoring : [...] Did not tolerate CPAP No history of MO, COPD, asthma, peptic ulcer disease, dyslipidemia, hypothyroidism, [...] which included preparing to see the patient, gsej-nj-xvft patient care, completing clinical documentation, obtaining and/or reviewing separately obtained history, performing a medically appropriate examination, counseling and educating the patient/family/caregiver, ordering medications, tests, or procedures, and independently interpreting results (not separately reported). Reba Vaughan APRN.ONDINA documented in this encounter [facility] 10-01-2022 History of Present illness Narrative Patient [...] arise. 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 Ean Luu DO [address] [place] [address] documented in this encounter [facility] 07-14-2022 Miscellaneous Notes Have head no response from insurance. Called the pharmacy and rx was ran through pts insurance with no copay and no issues. It appears PA was able to be completed via covermymeds. LUISA INTERIANO ([place]: [id number]) - [id number] metFORMIN HCl ER 750MG er tablets Status: Sent to Plan Created: July 07, 2022 Sent: July 10, 2022 Open Aniket as not sent Archive [facility] has changed their PA process. This new process isn't going well. Unable to complete PA electronically. Please call insurance company for a PA for his glucophage XR medication. States this is needed due to insurance changes. Ean Luu DO documented in this encounter [facility] 07-09-2022 History of Present illness Narrative Patient [...] as needed (nasal dryness). [facility] Use as instructed blood sugar [...] with the plan. Ean Luu DO [address] [place] [address] documented in this encounter [facility] 05-05-2022 Miscellaneous Notes Patient has been identified by name and date of : Yes Pending Prescriptions Disp Refills VITAMIN B COMPLEX TABLET 30 tablet 11 Sig: Take 1 tablet by mouth once daily. TAVIA: No RX INSTRUCTIONS: Patient aware RX will be sent to pharmacy. No need to notify patient. Breann Mora documented in this encounter [facility] 01-29-2022 Miscellaneous Notes Patient has been identified [...] Barb Duarte RN documented in this encounter [facility] 12-30-2021 Miscellaneous Notes Spoke with patient. Given [...] Ean Luu DO documented in this encounter [facility] 12-25-2021 History of Present illness Narrative Patient [...] arise. 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 Ean Luu DO [address] [place] [address] documented in this encounter [facility] 01-25-2016 History of Past i llness Narrative Problem Noted Date Resolved Date Sebaceous cyst 01/25/2016 11/27/2016 Skin tag 01/25/2016 11/27/2016 Cutaneous abscess of chest wall 09/17/2015 11/27/2016 Gout 12/19/2009 11/27/2016 Dysmetabolic syndrome X 10/10/2008 11/28/19 17 documented as of this encounter (statuses as of 12/25/2021) [facility] History of Past illness Narrative* Problem Noted Date Resolved Date Sebaceous cyst 01/25/2016 11/27/2016 Skin tag 01/25/2016 11/27/2016 Cutaneous abscess of chest wall 09/17/2015 11/27/2016 Gout 12/19/2009 11/27/2016 Dysmetabolic syndrome X 10/10/2008 11/28/19 17 documented as of this encounter (statuses as of 12/30/2021) [address]2016 History of Past illness Narrative* Problem Noted Date Resolved Date Sebaceous cyst 01/25/2016 11/27/2016 Skin tag 01/25/2016 11/27/2016 Cutaneous abscess of chest wall 09/17/2015 11/27/2016 Gout 12/19/2009 11/27/2016 Dysmetabolic syndrome X 10/10/2008 11/28/19 17 documented as of this encounter (statuses as of 01/29/2022) [address]2016 History of Past illness Narrative* Problem Noted Date Resolved Date Sebaceous cyst 01/25/2016 11/27/2016 Skin tag 01/25/2016 11/27/2016 Cutaneous abscess of chest wall 09/17/2015 11/27/2016 Gout 12/19/2009 11/27/2016 Dysmetabolic syndrome X 10/10/2008 11/28/19 17 documented as of this encounter (statuses as of 05/07/2022) [address] History of Past illness Narrative* Problem Noted Date Resolved Date Sebaceous cyst 01/25/2016 11/27/2016 Skin tag 01/25/2016 11/27/2016 Cutaneous abscess of chest wall 09/17/2015 11/27/2016 Gout 12/19/2009 11/27/2016 Dysmetabolic syndrome X 10/10/2008 11/28/19 17 documented as of this encounter (statuses as of 07/10/2022) [place] [address]2016 History of Past illness Narrative* Problem Noted Date Resolved Date Sebaceous cyst 01/25/2016 11/27/2016 Skin tag 01/25/2016 11/27/2016 Cutaneous abscess of chest wall 09/17/2015 11/27/2016 Gout 12/19/2009 11/27/2016 Dysmetabolic syndrome X 10/10/2008 11/28/19 17 documented as of this encounter (statuses as of 07/14/2022) [address]29-2016 History of Past illness Narrative* Problem Noted Date Resolved Date Sebaceous cyst 01/25/2016 11/27/2016 Skin tag 01/25/2016 11/27/2016 Cutaneous abscess of chest wall 09/17/2015 11/27/2016 Gout 12/19/2009 11/27/2016 Dysmetabolic syndrome X 10/10/2008 11/28/19 17 documented as of this encounter (statuses as of 10/03/2022) [facility]2016 History of Past illness Narrative* Problem Noted Date Resolved Date Sebaceous cyst 01/25/2016 11/27/2016 Skin tag 01/25/2016 11/27/2016 Cutaneous abscess of chest wall 09/17/2015 11/27/2016 Gout 12/19/2009 11/27/2016 Dysmetabolic syndrome X 10/10/2008 11/28/19 17 documented as of this encounter (statuses as of 10/24/2022) [facility] History of Past illness Narrative* Problem Noted Date Resolved Date Sebaceous cyst 01/25/2016 11/27/2016 Skin tag 01/25/2016 11/27/2016 Cutaneous abscess of chest wall 09/17/2015 11/27/2016 Gout 12/19/2009 11/27/2016 Dysmetabolic syndrome X 10/10/2008 11/28/19 17 documented as of this encounter (statuses as of 10/28/2022) [facility] History of Past illness Narrative* Problem Noted Date Resolved Date Sebaceous cyst 01/25/2016 11/27/2016 Skin tag 01/25/2016 11/27/2016 Cutaneous abscess of chest wall 09/17/2015 11/27/2016 Gout 12/19/2009 11/27/2016 Dysmetabolic syndrome X 10/10/2008 11/28/19 17 documented as of this encounter (statuses as of 10/29/2022) [facility] History of Past illness Narrative* Problem Noted Date Resolved Date Sebaceous cyst 01/25/2016 11/27/2016 Skin tag 01/25/2016 11/27/2016 Cutaneous abscess of chest wall 09/17/2015 11/27/2016 Gout 12/19/2009 11/27/2016 Dysmetabolic syndrome X 10/10/2008 11/28/19 17 documented as of this encounter (statuses as of 10/30/2022) [facility] History of Past illness Narrative* Problem Noted Date Resolved Date Sebaceous cyst 01/25/2016 11/27/2016 Skin tag 01/25/2016 11/27/2016 Cutaneous abscess of chest wall 09/17/2015 11/27/2016 Gout 12/19/2009 11/27/2016 Dysmetabolic syndrome X 10/10/2008 11/28/19 17 documented as of this encounter (statuses as of 11/04/2022) [facility] History of Past illness Narrative* Problem Noted Date Resolved Date Sebaceous cyst 01/25/2016 11/27/2016 Skin tag 01/25/2016 11/27/2016 Cutaneous abscess of chest wall 09/17/2015 11/27/2016 Gout 12/19/2009 11/27/2016 Dysmetabolic syndrome X 10/10/2008 11/28/19 17 documented as of this encounter (statuses as of 11/05/2022) [facility] History of Past illness Narrative* Problem Noted Date Resolved Date Sebaceous cyst 01/25/2016 11/27/2016 Skin tag 01/25/2016 11/27/2016 Cutaneous abscess of chest wall 09/17/2015 11/27/2016 Gout 12/19/2009 11/27/2016 Dysmetabolic syndrome X 10/10/2008 11/28/19 17 documented as of this encounter (statuses as of 11/19/2022) [facility] History of Past illness Narrative* Problem Noted Date Resolved Date Sebaceous cyst 01/25/2016 11/27/2016 Skin tag 01/25/2016 11/27/2016 Cutaneous abscess of chest wall 09/17/2015 11/27/2016 Gout 12/19/2009 11/27/2016 Dysmetabolic syndrome X 10/10/2008 11/28/19 17 documented as of this encounter (statuses as of 11/22/2022) [facility] History of Past illness Narrative* Problem Noted Date Resolved Date Sebaceous cyst 01/25/2016 11/27/2016 Skin tag 01/25/2016 11/27/2016 Cutaneous abscess of chest wall 09/17/2015 11/27/2016 Gout 12/19/2009 11/27/2016 Dysmetabolic syndrome X 10/10/2008 11/28/19 17 documented as of this encounter (statuses as of 11/24/2022) [facility] History of Past illness Narrative* Problem Noted Date Resolved Date Sebaceous cyst 01/25/2016 11/27/2016 Skin tag 01/25/2016 11/27/2016 Cutaneous abscess of chest wall 09/17/2015 11/27/2016 Gout 12/19/2009 11/27/2016 Dysmetabolic syndrome X 10/10/2008 11/28/19 17 documented as of this encounter (statuses as of 11/24/2022) [facility] History of Past illness Narrative* Problem Noted Date Resolved Date Sebaceous cyst 01/25/2016 11/27/2016 Skin tag 01/25/2016 11/27/2016 Cutaneous abscess of chest wall 09/17/2015 11/27/2016 Gout 12/19/2009 11/27/2016 Dysmetabolic syndrome X 10/10/2008 11/28/19 17 documented as of this encounter (statuses as of 12/01/2022) [facility] History of Past illness Narrative* Problem Noted Date Resolved Date Sebaceous cyst 01/25/2016 11/27/2016 Skin tag 01/25/2016 11/27/2016 Cutaneous abscess of chest wall 09/17/2015 11/27/2016 Gout 12/19/2009 11/27/2016 Dysmetabolic syndrome X 10/10/2008 11/28/19 17 documented as of this encounter (statuses as of 12/10/2022) [facility] History of Past illness Narrative* Problem Noted Date Resolved Date Sebaceous cyst 01/25/2016 11/27/2016 Skin tag 01/25/2016 11/27/2016 Cutaneous abscess of chest wall 09/17/2015 11/27/2016 Gout 12/19/2009 11/27/2016 Dysmetabolic syndrome X 10/10/2008 11/28/19 17 documented as of this encounter (statuses as of 12/29/2022) [facility] History of Past illness Narrative* Problem Noted Date Resolved Date Sebaceous cyst 01/25/2016 11/27/2016 Skin tag 01/25/2016 11/27/2016 Cutaneous abscess of chest wall 09/17/2015 11/27/2016 Gout 12/19/2009 11/27/2016 Dysmetabolic syndrome X 10/10/2008 11/28/19 17 documented as of this encounter (statuses as of 01/07/2023) [address]29-2016 History of Past illness Narrative* Problem Noted Date Resolved Date Sebaceous cyst 01/25/2016 11/27/2016 Skin tag 01/25/2016 11/27/2016 Cutaneous abscess of chest wall 09/17/2015 11/27/2016 Gout 12/19/2009 11/27/2016 Dysmetabolic syndrome X 10/10/2008 11/28/19 17 documented as of this encounter (statuses as of 01/08/2023) [facility] History of Past illness Narrative* Problem Noted Date Resolved Date Sebaceous cyst 01/25/2016 11/27/2016 Skin tag 01/25/2016 11/27/2016 Cutaneous abscess of chest wall 09/17/2015 11/27/2016 Gout 12/19/2009 11/27/2016 Dysmetabolic syndrome X 10/10/2008 11/28/19 17 documented as of this encounter (statuses as of 01/08/2023) [facility] History of Past illness Narrative* Problem Noted Date Resolved Date Sebaceous cyst 01/25/2016 11/27/2016 Skin tag 01/25/2016 11/27/2016 Cutaneous abscess of chest wall 09/17/2015 11/27/2016 Gout 12/19/2009 11/27/2016 Dysmetabolic syndrome X 10/10/2008 11/28/19 17 documented as of this encounter (statuses as of 02/10/2023) [facility] History of Past illness Narrative* Problem Noted Date Resolved Date Sebaceous cyst 01/25/2016 11/27/2016 Skin tag 01/25/2016 11/27/2016 Cutaneous abscess of chest wall 09/17/2015 11/27/2016 Gout 12/19/2009 11/27/2016 Dysmetabolic syndrome X 10/10/2008 11/28/19 17 documented as of this encounter (statuses as of 02/24/2023) [facility] History of Past illness Narrative* Problem Noted Date Resolved Date Sebaceous cyst 01/25/2016 11/27/2016 Skin tag 01/25/2016 11/27/2016 Cutaneous abscess of chest wall 09/17/2015 11/27/2016 Gout 12/19/2009 11/27/2016 Dysmetabolic syndrome X 10/10/2008 11/28/19 17 documented as of this encounter (statuses as of 02/25/2023) [address]29-2016 History of Past illness Narrative* Problem Noted Date Resolved Date Sebaceous cyst 01/25/2016 11/27/2016 Skin tag 01/25/2016 11/27/2016 Cutaneous abscess of chest wall 09/17/2015 11/27/2016 Gout 12/19/2009 11/27/2016 Dysmetabolic syndrome X 10/10/2008 11/28/19 17 documented as of this encounter (statuses as of 04/02/2023) [address]29-2016 History of Past illness Narrative* Problem Noted Date Diagnosed Date Resolved Date Sebaceous cyst 01/25/2016 11/27/2016 Skin tag 01/25/2016 11/27/2016 Cutaneous abscess of chest wall 09/17/2015 11/27/2016 Gout 12/19/2009 11/27/2016 Dysmetabolic syndrome X 10/10/20080 10/2016 documented as of this encounter (statuses as of 04/24/2023) [address]29-2016 History of Past illness Narrative* Problem Noted Date Diagnosed Date Resolved Date Sebaceous cyst 01/25/2016 11/27/2016 Skin tag 01/25/2016 11/27/2016 Cutaneous abscess of chest wall 09/17/2015 11/27/2016 Gout 12/19/2009 11/27/2016 Dysmetabolic syndrome X 10/10/200810/2016 documented as of this encounter (statuses as of 05/19/2023) [facility] History of Past illness Narrative* Problem Noted Date Diagnosed Date Resolved Date Sebaceous cyst 01/25/2016 11/27/2016 Skin tag 01/25/2016 11/27/2016 Cutaneous abscess of chest wall 09/17/2015 11/27/2016 Gout 12/19/2009 11/27/2016 Dysmetabolic syndrome X 10/10/20080 10/2016 documented as of this encounter (statuses as of 06/10/2023) [address]29-2016 History of Past illness Narrative* Problem Noted Date Diagnosed Date Resolved Date Sebaceous cyst 01/25/2016 11/27/2016 Skin tag 01/25/2016 11/27/2016 Cutaneous abscess of chest wall 09/17/2015 11/27/2016 Gout 12/19/2009 11/27/2016 Dysmetabolic syndrome X 10/10/200810/2016 documented as of this encounter (statuses as of 07/04/2023) [facility] History of Past illness Narrative* Problem Noted Date Diagnosed Date Resolved Date Sebaceous cyst 01/25/2016 11/27/2016 Skin tag 01/25/2016 11/27/2016 Cutaneous abscess of chest wall 09/17/2015 11/27/2016 Gout 12/19/2009 11/27/2016 Dysmetabolic syndrome X 10/10/200810/2016 documented as of this encounter (statuses as of 07/16/2023) [facility] History of Past illness Narrative* Problem Noted Date Diagnosed Date Resolved Date Sebaceous cyst 01/25/2016 11/27/2016 Skin tag 01/25/2016 11/27/2016 Cutaneous abscess of chest wall 09/17/2015 11/27/2016 Gout 12/19/2009 11/27/2016 Dysmetabolic syndrome X 10/10/200810/2016 documented as of this encounter (statuses as of 08/02/2023) [facility] History of Past illness Narrative* Problem Noted Date Diagnosed Date Resolved Date Sebaceous cyst 01/25/2016 11/27/2016 Skin tag 01/25/2016 11/27/2016 Cutaneous abscess of chest wall 09/17/2015 11/27/2016 Gout 12/19/2009 11/27/2016 Dysmetabolic syndrome X 10/10/200810/2016 documented as of this encounter (statuses as of 08/02/2023) [facility] History of Past illness Narrative* Problem Noted Date Diagnosed Date Resolved Date Sebaceous cyst 01/25/2016 11/27/2016 Skin tag 01/25/2016 11/27/2016 Cutaneous abscess of chest wall 09/17/2015 11/27/2016 Gout 12/19/2009 11/27/2016 Dysmetabolic syndrome X 10/10/200810/2016 documented as of this encounter (statuses as of 08/02/2023) [place] [address] History of Past illness Narrative* Problem Noted Date Diagnosed Date Resolved Date Sebaceous cyst 01/25/2016 11/27/2016 Skin tag 01/25/2016 11/27/2016 Cutaneous abscess of chest wall 09/17/2015 11/27/2016 Gout 12/19/2009 11/27/2016 Dysmetabolic syndrome X 10/10/200810/2016 documented as of this encounter (statuses as of 08/04/2023) [facility] History of Past illness Narrative* Problem Noted Date Diagnosed Date Resolved Date Sebaceous cyst 01/25/2016 11/27/2016 Skin tag 01/25/2016 11/27/2016 Cutaneous abscess of chest wall 09/17/2015 11/27/2016 Gout 12/19/2009 11/27/2016 Dysmetabolic syndrome X 10/10/200810/2016 documented as of this encounter (statuses as of 01/15/2024) [address]29-2016 History of Past illness Narrative* Problem Noted Date Diagnosed Date Resolved Date Sebaceous cyst 01/25/2016 11/27/2016 Skin tag 01/25/2016 11/27/2016 Cutaneous abscess of chest wall 09/17/2015 11/27/2016 Gout 12/19/2009 11/27/2016 Dysmetabolic syndrome X 10/10/200810/2016 documented as of this encounter (statuses as of 01/16/2024) [facility] Diagnosis Uncontrolled type 2 diabetes mellitus with hyperglycemia (HCC)- Primary Hyperlipidemia with target LDL less than 100 Other and unspecified hyperlipidemia Essential hypertension Unspecified essential hypertension Obesity, Class III, BMI 40-49.9 (morbid obesity) (HCC) Morbid obesity Actinic keratosis [facility] Essential hypertension Unspecified essential [...] (HCC) Morbid obesity documented in this encounter [facility] note* Diagnosis Uncontrolled type 2 diabetes mellitus with hyperglycemia (HCC)- Primary Hyperlipidemia with target LDL less than 100 Other and unspecified hyperlipidemia Carpal tunnel syndrome, bilateral Carpal tunnel syndrome Fatigue, unspecified type Essential hypertension Unspecified essential hypertension Obesity, Class III, BMI 40-49.9 (morbid obesity) (HCC) Morbid obesity documented in this encounter [facility] note* Diagnosis Class 3 severe obesity with [...] 2 diabetes mellitus without complication, unspecified whether 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 use (HCC) documented in this encounter [facility] note* Diagnosis Abnormal chest x-ray- Primary Other nonspecific abnormal finding of lung field documented in this encounter [facility] note* Diagnosis Class 3 severe obesity with serious comorbidity and body mass index (BMI) of 40.0 to 44.9 in adult, unspecified obesity type (HCC) documented in this encounter [facility] note* Diagnosis Lung nodules- Primary Other nonspecific abnormal finding of lung field Morbid obesity (HCC) Morbid obesity documented in this encounter [facility] note* Diagnosis Body mass index 40.0-44.9, adult [...] apnea (adult) (pediatric) documented in this encounter [facility] note* Diagnosis MIKKI (obstructive sleep apnea)- Primary Obstructive sleep apnea (adult) (pediatric) Primary hypertension Unspecified essential hypertension Obesity, Class III, BMI 40-49.9 (morbid obesity) (HCC) Morbid obesity [facility] Diagnosis Lung nodules- Primary Other nonspecific abnormal finding of lung field [facility] Diagnosis Obesity, Class III, BMI 40-49.9 (morbid obesity) (HCC)- Primary Morbid obesity Controlled type 2 diabetes mellitus without complication, without long-term current use of insulin (HCC) Dietary counseling and surveillance Dietary surveillance and counseling [facility] Diagnosis Lung nodules- Primary Other nonspecific abnormal finding of lung field [facility] Diagnosis Obesity, Class III, BMI 40-49.9 (morbid obesity) (HCC)- Primary Morbid obesity Controlled type 2 diabetes mellitus without complication, without long-term current use of insulin (HCC) MIKKI (obstructive sleep apnea) Obstructive sleep apnea (adult) (pediatric) documented [facility] Diagnosis Essential hypertension Unspecified essential hypertension [facility] Diagnosis Uncontrolled type 2 diabetes [...] apnea (adult) (pediatric) [facility] Diagnosis Uncontrolled type 2 diabetes mellitus with hyperglycemia (HCC) [facility] Diagnosis Gout, unspecified cause, unspecified chronicity, unspecified site [facility] Diagnosis Vitamin B12 deficiency- Primary Other B-complex deficiencies Uncontrolled type 2 diabetes mellitus with hyperglycemia (HCC) Essential hypertension Unspecified essential hypertension Gout, unspecified cause, unspecified chronicity, unspecified site Diabetes mellitus type 2 with ketoacidosis, uncontrolled (HCC) Type II or unspecified type diabetes mellitus with ketoacidosis, uncontrolled Hypercholesteremia Pure hypercholesterolemia [facility] Diagnosis Uncontrolled type 2 diabetes mellitus [...] with hyperglycemia (HCC) [facility] Diagnosis Infected sebaceous cyst- Primary [...] with hyperglycemia (HCC) [facility] Diagnosis Low testosterone in male- Primary [facility] Diagnosis Gout, unspecified cause, unspecified chronicity, unspecified site [facility] Diagnosis Hyperlipidemia with target LDL less than 100- Primary Other and unspecified hyperlipidemia Diabetes mellitus type 2 with ketoacidosis, uncontrolled (HCC) Type II or unspecified type diabetes mellitus with ketoacidosis, uncontrolled [facility] Diagnosis Uncontrolled type 2 diabetes mellitus [...] ptosis of eyelid [facility] Diagnosis Hyperlipidemia with target LDL less than 100 Other and unspecified hyperlipidemia [facility] Diagnosis MIKKI (obstructive sleep apnea)- Primary Obstructive sleep apnea (adult) (pediatric) Uncontrolled type 2 diabetes mellitus with hyperglycemia (HCC) Primary hypertension Unspecified essential hypertension Hyperlipidemia with target LDL less than 100 Other and unspecified hyperlipidemia Vitamin B12 deficiency Other B-complex deficiencies Ptosis, left eyelid Unspecified ptosis of eyelid Fatigue, unspecified type [facility] Diagnosis Uncontrolled type 2 diabetes mellitus with hyperglycemia (HCC)- Primary Hyperlipidemia with target LDL less than 100 Other and unspecified hyperlipidemia Essential hypertension Unspecified essential hypertension Primary hypertension Unspecified essential hypertension Vitamin B12 deficiency Other B-complex deficiencies [facility] Diagnosis Uncontrolled type 2 diabetes mellitus with hyperglycemia (HCC) [facility] Diagnosis Hypotension, unspecified hypotension type- Primary Tachycardia Tachycardia, unspecified documented in this encounter [facility] for referral (narrative)* Outpatient Procedure (Routine) - Closed Specialty Diagnoses / Procedures Referred By Contgibson t Referred To [facility] Diagnoses Class 3 severe obesity with serious comorbidity and body mass index (BMI) of 40.0 to 44.9 in adult, unspecified obesity type (HCC) Procedures ECG COMPLETE ECG ROUTINE ECG W/LEAST 12 [facility] W/I&R Reba Vaughan APRN.TONGUE STITCHER [address] [place] [id number] [facility] [place] [address] [facility] [place] [id number] Referral ID Status Reason Start Date Expiration Date V isits Requested Visits Authorized [id number] Closed Auto-Generate d Referral 10/24/2022 10/24/2023 1 1 [facility] for referral (narrative)* Diagnostic Procedure Only (Routine) - Closed Specialty Diagnoses / Procedures Referred By Contac t Referred To Contact US IMAGING Diagnoses Class 3 severe obesity with serious comorbidity and body mass index (BMI) of 40.0 to 44.9 in adult, unspecified obesity type (HCC) Procedures US ABD RT UPPER QUADRANT US ABDOMINAL REAL TIME W/IMAGE LIMITED Reba Vaughan APRN.TONGUE STITCHER [address] [place] [id number] Us Imaging [facility]95 Referral ID Status Reason Start Date Expiration Date V isits Requested Visits Authorized [id number] Closed Auto-Generate d Referral 10/24/2022 11/23/2023 1 1 [facility] for visit Narrative* Outpatient Procedure (Routine) - Closed Specialty Diagnoses / Procedures Referred By Contac t Referred To Contact [facility] Diagnoses Class 3 severe obesity with serious comorbidity and body mass index (BMI) of 40.0 to 44.9 in adult, unspecified obesity type (HCC) Procedures ECG COMPLETE ECG ROUTINE ECG W/LEAST 12 [facility] W/I&R Reba Vaughan, TOREI.TONGUE STITCHER [address] [place] [address] [facility] [place] [address] [place], [place] [address]Lucretia [place] [phone] Referral ID Status Reason Start Date Expiration Date V isits Requested Visits Authorized [id number] Closed Auto-Generate d Referral 10/24/2022 10/24/2023 1 1 [facility] Reason for Referral Specialty Diagnoses / Procedures Referred By Contac t Referred To Contact Diagnoses Diabetes mellitus type 2 with ketoacidosis, uncontrolled (HCC) Ean Luu, DO [address] [place] [address] Referral ID Status Reason Start Date Expiration Date Visits Re quested Visits Authorized [id number] Closed 1 1 Referral ID Status Reason Start Date Expiration Date Visits Re quested Visits Authorized [id number] Closed 1 1 Specialty Diagnoses / Procedures Referred By Contac t Referred To Contact Diagnoses MIKKI (obstructive sleep apnea) Procedures CONSULT TO SLEEP MEDICINE - ADULT OFFICE/OUTPATIENT [facility] 60-74 MINUTES Reba Vaughan, FINANCIAL AID.TONGUE STITCHER [address] [place] [address] Referral ID Status Reason Start Date Expiration Date Visits Requested Visits Authorized [id number] Authorized PCP Requested Referral 10/24/2022 10/24/2023 1 [...] HRT RATE&O2 SAT EFFORT UNATT Reba Vaughan, FINANCIAL AID.TONGUE STITCHER [address] [place] [address] Neurological [place] [id number] [place] [address] Referral ID Status Reason Start Date Expiration Date Visits Requested Visits Authorized [id number] Authorized Auto-Generat ed Referral 10/24/2022 10/24/2023 1 1 Specialty Diagnoses / Procedures Referred By Contac t Referred To Contact US IMAGING Diagnoses Class 3 severe obesity with serious comorbidity and body mass index (BMI) of 40.0 to 44.9 in adult, unspecified obesity type (HCC) Procedures US ABD RT UPPER QUADRANT US ABDOMINAL REAL TIME W/IMAGE LIMITED Reba Vaughan, FINANCIAL AID.TONGUE STITCHER [address] [place] [address] Us Imaging Referral ID Status Reason Start Date Expiration Date Visits Requested Visits Authorized [id number] Authorized Auto-Generat ed Referral 10/24/2022 11/23/2023 1 1 Specialty Diagnoses / Procedures Referred By Contac t Referred To Contact [facility] Diagnoses Class 3 severe obesity with serious comorbidity and body mass index (BMI) of 40.0 to 44.9 in adult, unspecified obesity type (HCC) Procedures ECG COMPLETE ECG ROUTINE ECG W/LEAST 12 [facility] W/I&R Reba Vaughan, TORIE.TONGUE STITCHER [address] [place] [address] [facility] [place] [address] [place] [address] Referral ID Status Reason Start Date Expiration Date Visits Requested Visits Authorized [id number] Pending Review Auto-Generat ed Referral 10/24/2022 10/24/2023 1 1 Specialty Diagnoses / Procedures Referred By Contac t Referred To Contact CT IMAGING Diagnoses Lung nodules Procedures CT CHEST WO IVCON DIAGNOSTIC COMPUTED TOMOGRAPHY THORAX W/O Shara Pretty MD [address] [place] [address] Ct Imaging Referral ID Status Reason Start Date Expiration Date Visits Requested Visits Authorized [id number] Pending Review Auto-Generat ed Referral 10/30/2022 11/29/2023 1 1 Referral ID Status Reason Start Date Expiration Date Visits Requested Visits Authorized [id number] Pending Review Auto-Generat ed Referral 02/09/2023 01/28/2024 1 1 Specialty Diagnoses / Procedures Referred By Contac t Referred To Contact CT IMAGING Diagnoses Lung nodules Procedures CT CHEST WO IVCON DIAGNOSTIC COMPUTED TOMOGRAPHY THORAX W/O Shara Pretty MD [address] [facility] [address] [place] [address] Referral ID Status Reason Start Date Expiration Date V isits Requested Visits Authorized [id number] Denied Auto-Generat ed Referral Patient Cleared - Admin/Chairm an/Director advise to proceed or did not respond 10/30/2022 12/29/2022 1 0 Specialty Diagnoses / Procedures Referred By Contac t Referred To Contact General Surgery Diagnoses Cutaneous abscess of other site Procedures CONSULT TO GENERAL SURGERY OFFICE/OUTPATIENT [facility] MDM 60 MINUTES Jenn Sotelo APRN.TONGUE STITCHER [address] [place] [address] Referral ID Status Reason Start Date Expiration Date Visits Requested Visits Authorized [id number] Authorized PCP Requested Referral 02/10/2024 02/09/2025 1 1 Advance Directives Documents on File Type Date Recorded Patient Parking Supervisor Expl anation Advance Directive(s) Advance Directive(s) 12/25/2020 4:50 PM Advance Directive(s) 02/16/2020 11:03 AM Advance Directive(s) 02/10/2020 10:50 AM Advance Directive(s) 05/19/2018 4:30 PM Documents on File Type Date Recorded Patient Parking Supervisor Expl anation Advance Directive(s) Advance Directive(s) 12/25/2020 [...] or prosecute any alcohol or drug abuse patient.[facility] SystemIn the event this information is protected by the Federal Confidentiality of Alcohol and Drug Abuse Patient Records regulations: The Federal rules restrict any use of the information to criminally investigate or prosecute any alcohol or drug abuse patient.[facility] SystemIn the event this information is protected by the Federal Confidentiality of Alcohol and Drug Abuse Patient Records regulations: The Federal rules restrict any use of the information to criminally investigate or prosecute any alcohol or drug abuse patient.[facility] SystemIn the event this information is protected by the Federal Confidentiality of Alcohol and Drug Abuse Patient Records regulations: The Federal rules restrict any use of the information to criminally investigate or prosecute any alcohol or drug abuse patient.[facility] SystemIn the event this information is protected by the Federal Confidentiality of Alcohol and Drug Abuse Patient Records regulations: The Federal rules restrict any use of the information to criminally investigate or prosecute any alcohol or drug abuse patient.[facility] SystemIn the event this information is protected by the Federal Confidentiality of Alcohol and Drug Abuse Patient Records regulations: The Federal rules restrict any use of the information to criminally investigate or prosecute any alcohol or drug abuse patient.[facility] SystemIn the event this information is protected by the Federal Confidentiality of Alcohol and Drug Abuse Patient Records regulations: The Federal rules restrict any use of the information to criminally investigate or prosecute any alcohol or drug abuse patient.[facility] SystemIn the event this information is protected by the Federal Confidentiality of Alcohol and Drug Abuse Patient Records regulations: The Federal rules restrict any use of the information to criminally investigate or prosecute any alcohol or drug abuse patient.[facility] SystemIn the event this information is protected by the Federal Confidentiality of Alcohol and Drug Abuse Patient Records regulations: The Federal rules restrict any use of the information to criminally investigate or prosecute any alcohol or drug abuse patient.[facility] SystemIn the event this information is protected by the Federal Confidentiality of Alcohol and Drug Abuse Patient Records regulations: The Federal rules restrict any use of the information to criminally investigate or prosecute any alcohol or drug abuse patient.[facility] SystemIn the event this information is protected by the Federal Confidentiality of Alcohol and Drug Abuse Patient Records regulations: The Federal rules restrict any use of the information to criminally investigate or prosecute any alcohol or drug abuse patient.[facility] SystemIn the event this information is protected by the Federal Confidentiality of Alcohol and Drug Abuse Patient Records regulations: The Federal rules restrict any use of the information to criminally investigate or prosecute any alcohol or drug abuse patient.[facility] SystemIn the event this information is protected by the Federal Confidentiality of Alcohol and Drug Abuse Patient Records regulations: The Federal rules restrict any use of the information to criminally investigate or prosecute any alcohol or drug abuse patient.[facility] SystemIn the event this information is protected by the Federal Confidentiality of Alcohol and Drug Abuse Patient Records regulations: The Federal rules restrict any use of the information to criminally investigate or prosecute any alcohol or drug abuse patient.[facility] SystemIn the event this information is protected by the Federal Confidentiality of Alcohol and Drug Abuse Patient Records regulations: The Federal rules restrict any use of the information to criminally investigate or prosecute any alcohol or drug abuse patient.[facility] SystemIn the event this information is protected by the Federal Confidentiality of Alcohol and Drug Abuse Patient Records regulations: The Federal rules restrict any use of the information to criminally investigate or prosecute any alcohol or drug abuse patient.[facility] SystemIn the event this information is protected by the Federal Confidentiality of Alcohol and Drug Abuse Patient Records regulations: The Federal rules restrict any use of the information to criminally investigate or prosecute any alcohol or drug abuse patient.[facility] SystemIn the event this information is protected by the Federal Confidentiality of Alcohol and Drug Abuse Patient Records regulations: The Federal rules restrict any use of the information to criminally investigate or prosecute any alcohol or drug abuse patient.[facility] SystemIn the event this information is protected by the Federal Confidentiality of Alcohol and Drug Abuse Patient Records regulations: The Federal rules restrict any use of the information to criminally investigate or prosecute any alcohol or drug abuse patient.[facility] SystemIn the event this information is protected by the Federal Confidentiality of Alcohol and Drug Abuse Patient Records regulations: The Federal rules restrict any use of the information to criminally investigate or prosecute any alcohol or drug abuse patient.[facility] SystemIn the event this information is protected by the Federal Confidentiality of Alcohol and Drug Abuse Patient Records regulations: The Federal rules restrict any use of the information to criminally investigate or prosecute any alcohol or drug abuse patient.[facility] SystemIn the event this information is protected by the Federal Confidentiality of Alcohol and Drug Abuse Patient Records regulations: The Federal rules restrict any use of the information to criminally investigate or prosecute any alcohol or drug abuse patient.[facility] SystemIn the event this information is protected by the Federal Confidentiality of Alcohol and Drug Abuse Patient Records regulations: The Federal rules restrict any use of the information to criminally investigate or prosecute any alcohol or drug abuse patient.[facility] SystemIn the event this information is protected by the Federal Confidentiality of Alcohol and Drug Abuse Patient Records regulations: The Federal rules restrict any use of the information to criminally investigate or prosecute any alcohol or drug abuse patient.[facility] SystemIn the event this information is protected by the Federal Confidentiality of Alcohol and Drug Abuse Patient Records regulations: The Federal rules restrict any use of the information to criminally investigate or prosecute any alcohol or drug abuse patient.[facility] SystemIn the event this information is protected by the Federal Confidentiality of Alcohol and Drug Abuse Patient Records regulations: The Federal rules restrict any use of the information to criminally investigate or prosecute any alcohol or drug abuse patient.[facility] SystemIn the event this information is protected by the Federal Confidentiality of Alcohol and Drug Abuse Patient Records regulations: The Federal rules restrict any use of the information to criminally investigate or prosecute any alcohol or drug abuse patient.[facility] SystemIn the event this information is protected by the Federal Confidentiality of Alcohol and Drug Abuse Patient Records regulations: The Federal rules restrict any use of the information to criminally investigate or prosecute any alcohol or drug abuse patient.[facility] SystemIn the event this information is protected by the Federal Confidentiality of Alcohol and Drug Abuse Patient Records regulations: The Federal rules restrict any use of the information to criminally investigate or prosecute any alcohol or drug abuse patient.[facility] SystemIn the event this information is protected by the Federal Confidentiality of Alcohol and Drug Abuse Patient Records regulations: The Federal rules restrict any use of the information to criminally investigate or prosecute any alcohol or drug abuse patient.[facility] SystemIn the event this information is protected by the Federal Confidentiality of Alcohol and Drug Abuse Patient Records regulations: The Federal rules restrict any use of the information to criminally investigate or prosecute any alcohol or drug abuse patient.[facility] SystemIn the event this information is protected by the Federal Confidentiality of Alcohol and Drug Abuse Patient Records regulations: The Federal rules restrict any use of the information to criminally investigate or prosecute any alcohol or drug abuse patient.[facility] SystemIn the event this information is protected by the Federal Confidentiality of Alcohol and Drug Abuse Patient Records regulations: The Federal rules restrict any use of the information to criminally investigate or prosecute any alcohol or drug abuse patient.[facility] SystemIn the event this information is protected by the Federal Confidentiality of Alcohol and Drug Abuse Patient Records regulations: The Federal rules restrict any use of the information to criminally investigate or prosecute any alcohol or drug abuse patient.[facility] SystemIn the event this information is protected by the Federal Confidentiality of Alcohol and Drug Abuse Patient Records regulations: The Federal rules restrict any use of the information to criminally investigate or prosecute any alcohol or drug abuse patient.[facility] SystemIn the event this information is protected by the Federal Confidentiality of Alcohol and Drug Abuse Patient Records regulations: The Federal rules restrict any use of the information to criminally investigate or prosecute any alcohol or drug abuse patient.[facility] SystemIn the event this information is protected by the Federal Confidentiality of Alcohol and Drug Abuse Patient Records regulations: The Federal rules restrict any use of the information to criminally investigate or prosecute any alcohol or drug abuse patient.[facility] SystemIn the event this information is protected by the Federal Confidentiality of Alcohol and Drug Abuse Patient Records regulations: The Federal rules restrict any use of the information to criminally investigate or prosecute any alcohol or drug abuse patient.[facility] SystemIn the event this information is protected by the Federal Confidentiality of Alcohol and Drug Abuse Patient Records regulations: The Federal rules restrict any use of the information to criminally investigate or prosecute any alcohol or drug abuse patient.[facility] SystemIn the event this information is protected by the Federal Confidentiality of Alcohol and Drug Abuse Patient Records regulations: The Federal rules restrict any use of the information to criminally investigate or prosecute any alcohol or drug abuse patient.[facility] SystemIn the event this information is protected by the Federal Confidentiality of Alcohol and Drug Abuse Patient Records regulations: The Federal rules restrict any use of the information to criminally investigate or prosecute any alcohol or drug abuse patient.[facility] SystemIn the event this information is protected by the Federal Confidentiality of Alcohol and Drug Abuse Patient Records regulations: The Federal rules restrict any use of the information to criminally investigate or prosecute any alcohol or drug abuse patient.[facility] SystemIn the event this information is protected by the Federal Confidentiality of Alcohol and Drug Abuse Patient Records regulations: The Federal rules restrict any use of the information to criminally investigate or prosecute any alcohol or drug abuse patient.[facility] SystemIn the event this information is protected by the Federal Confidentiality of Alcohol and Drug Abuse Patient Records regulations: The Federal rules restrict any use of the information to criminally investigate or prosecute any alcohol or drug abuse patient.[facility] SystemIn the event this information is protected by the Federal Confidentiality of Alcohol and Drug Abuse Patient Records regulations: The Federal rules restrict any use of the information to criminally investigate or prosecute any alcohol or drug abuse patient.[facility] SystemIn the event this information is protected by the Federal Confidentiality of Alcohol and Drug Abuse Patient Records regulations: The Federal rules restrict any use of the information to criminally investigate or prosecute any alcohol or drug abuse patient.[facility] SystemIn the event this information is protected by the Federal Confidentiality of Alcohol and Drug Abuse Patient Records regulations: The Federal rules restrict any use of the information to criminally investigate or prosecute any alcohol or drug abuse patient.[facility] SystemIn the event this information is protected by the Federal Confidentiality of Alcohol and Drug Abuse Patient Records regulations: The Federal rules restrict any use of the information to criminally investigate or prosecute any alcohol or drug abuse patient.[facility] SystemIn the event this information is protected by the Federal Confidentiality of Alcohol and Drug Abuse Patient Records regulations: The Federal rules restrict any use of the information to criminally investigate or prosecute any alcohol or drug abuse patient.[facility] SystemIn the event this information is protected by the Federal Confidentiality of Alcohol and Drug Abuse Patient Records regulations: The Federal rules restrict any use of the information to criminally investigate or prosecute any alcohol or drug abuse patient.[facility] SystemIn the event this information is protected by the Federal Confidentiality of Alcohol and Drug Abuse Patient Records regulations: The Federal rules restrict any use of the information to criminally investigate or prosecute any alcohol or drug abuse patient.[facility] SystemIn the event this information is protected by the Federal Confidentiality of Alcohol and Drug Abuse Patient Records regulations: The Federal rules restrict any use of the information to criminally investigate or prosecute any alcohol or drug abuse patient.[facility] SystemIn the event this information is protected by the Federal Confidentiality of Alcohol and Drug Abuse Patient Records regulations: The Federal rules restrict any use of the information to criminally investigate or prosecute any alcohol or drug abuse patient.[facility] SystemIn the event this information is protected by the Federal Confidentiality of Alcohol and Drug Abuse Patient Records regulations: The Federal rules restrict any use of the information to criminally investigate or prosecute any alcohol or drug abuse patient.[facility] SystemIn the event this information is protected by the Federal Confidentiality of Alcohol and Drug Abuse Patient Records regulations: The Federal rules restrict any use of the information to criminally investigate or prosecute any alcohol or drug abuse patient.[facility] SystemIn the event this information is protected by the Federal Confidentiality of Alcohol and Drug Abuse Patient Records regulations: The Federal rules restrict any use of the information to criminally investigate or prosecute any alcohol or drug abuse patient.[facility] SystemIn the event this information is protected by the Federal Confidentiality of Alcohol and Drug Abuse Patient Records regulations: The Federal rules restrict any use of the information to criminally investigate or prosecute any alcohol or drug abuse patient.[facility] SystemIn the event this information is protected by the Federal Confidentiality of Alcohol and Drug Abuse Patient Records regulations: The Federal rules restrict any use of the information to criminally investigate or prosecute any alcohol or drug abuse patient.[facility] Reason for Visit (unrecogniz ed section and [...] NEW HIGH MDM 60-74 MINUTES Reba Vaughan, TORIE.TONGUE STITCHER [address] [place] [address] Referral ID Status Reason Start Date Expiration Date V isits Requested Visits Authorized [id number] Closed PCP Requested Referral 10/24/2022 10/24/2023 1 [...] Refill Request 05/18/2023 Reason Comments Insurance Authorization [facility] Reason Comments 6 Month Exam Reason Comments Radiology CT Specialty Diagnoses / Procedures Referred By Contac t Referred To Contact CT IMAGING Diagnoses Lung nodules Procedures CT CHEST WO IVCON DIAGNOSTIC COMPUTED TOMOGRAPHY THORAX W/O Shara Pretty MD [address] [place] [address] [place] [facility] Referral ID Status Reason Start Date Expiration Date V isits Requested Visits Authorized [id number] Denied Auto-Generat ed Referral Patient Cleared - [...] ABDOMINAL REAL TIME W/IMAGE LIMITED Reba Vaughan, FINANCIAL AID.TONGUE STITCHER [address] [place] [id number] [place] [address] Referral ID Status Reason Start Date Expiration Date V isits Requested Visits Authorized [id number] Closed Auto-Generate d Referral 10/24/2022 11/23/2023 1 [...] NEW HIGH MDM 60 MINUTES Jenn Sotelo, FINANCIAL AID.TONGUE STITCHER [address] [place] [address] Referral ID Status Reason Start Date Expiration Date V isits Requested Visits Authorized [id number] Closed PCP Requested Referral 02/10/2024 02/09/2025 1 [...] Care Teams (unrecognized sec tion and content) Automotive Assembler Relationship Specialty Start Date End Date Ean Luu, DO [address] [place] [address] PCP - General Family Practice 05/03/13 Automotive Assembler Relationship Specialty Start Date End Date Ean Luu DO [address] [place] [address] PCP - General Family Practice 05/03/13 Automotive Assembler Relationship Specialty Start Date End Date Ean Luu DO [address] [place] [address] PCP - General Family Practice 05/03/13 Automotive Assembler Relationship Specialty Start Date End Date Ean Luu, DO [address] [place] [address] PCP - General Family Practice 05/03/13 Automotive Assembler Relationship Specialty Start Date End Date Ean Luu DO [address] [place] [address] PCP - General Family Medicine 05/03/13 Automotive Assembler Relationship Specialty Start Date End Date Ean Luu DO [address] [place] [address] PCP - General Family Medicine 05/03/13 Automotive Assembler Relationship Specialty Start Date End Date Ean Luu, DO [address] [place] [address] PCP - General Family Medicine 05/03/13 Automotive Assembler Relationship Specialty Start Date End Date Ean Luu, DO [address] [place] [address] PCP - General Family Medicine 05/03/13 Automotive Assembler Relationship Specialty Start Date End Date Ean Luu, DO [address] [place] [address] PCP - General Family Medicine 05/03/13 Automotive Assembler Relationship Specialty Start Date End Date Ean Luu, DO [address] [place] [address] PCP - General Family Medicine 05/03/13 Automotive Assembler Relationship Specialty Start Date End Date Ean Luu, DO [address] [place] [address] PCP - General Family Medicine 05/03/13 Automotive Assembler Relationship Specialty Start Date End Date Ean Luu, DO [address] [place] [address] PCP - General Family Medicine 05/03/13 Automotive Assembler Relationship Specialty Start Date End Date Ean Luu, DO [address] [place] [address] PCP - General Family Medicine 05/03/13 Automotive Assembler Relationship Specialty Start Date End Date Ean Luu, DO [address] [place] [address] PCP - General Family Medicine 05/03/13 Automotive Assembler Relationship Specialty Start Date End Date Ean Luu, DO [address] [place] [address] PCP - General Family Medicine 05/03/13 Automotive Assembler Relationship Specialty Start Date End Date Ean Luu, DO [address] [facility] [place] [address] PCP - General Family Medicine 05/03/13 Automotive Assembler Relationship Specialty Start Date End Date Ean Luu, DO [address] [facility] [place] [address] PCP - General Family Medicine 05/03/13 Automotive Assembler Relationship Specialty Start Date End Date Ean Luu, DO [address] [facility] [place] [address] PCP - General Family Medicine 05/03/13 Automotive Assembler Relationship Specialty Start Date End Date Ean Luu, DO [address] [facility] [place] [address] PCP - General Family Medicine 05/03/13 Automotive Assembler Relationship Specialty Start Date End Date Ean Luu DO [address] [facility] [place] [address] PCP - General Family Medicine 05/03/13 Automotive Assembler Relationship Specialty Start Date End Date Ean Luu DO [address] [facility] [place] [address] PCP - General Family Medicine 05/03/13 Automotive Assembler Relationship Specialty Start Date End Date Ean Luu DO [address] [facility] [place] [address] PCP - General Family Medicine 05/03/13 Automotive Assembler Relationship Specialty Start Date End Date Ean Luu DO [address] [facility] [place] [address] PCP - General Family Medicine 05/03/13 Automotive Assembler Relationship Specialty Start Date End Date Ean Luu, [address] [place] [address] PCP - General Family Medicine 05/03/13 Automotive Assembler Relationship Specialty Start Date End Date Ean Luu, [address] [place] [address] PCP - General Family Medicine 05/03/13 Automotive Assembler Relationship Specialty Start Date End Date Ean Luu DO [address] [place] [address] PCP - General Family Medicine 05/03/13 Automotive Assembler Relationship Specialty Start Date End Date Ean Luu DO [address] [place] [address] PCP - General Family Medicine 05/03/13 Automotive Assembler Relationship Specialty Start Date End Date Ean Luu DO [address] [place] [address] PCP - General Family Medicine 05/03/13 Automotive Assembler Relationship Specialty Start Date End Date Ean Luu DO [address] [place] [address] PCP - General Family Medicine 05/03/13 Automotive Assembler Relationship Specialty Start Date End Date Ean Luu DO [address] [place] [address] PCP - General Family Medicine 05/03/13 Automotive Assembler Relationship Specialty Start Date End Date Ean Luu DO [address] [place] [address] PCP - General Family Medicine 05/03/13 Automotive Assembler Relationship Specialty Start Date End Date Ean Luu DO [address] [facility] [place] [address] PCP - General Family Medicine 05/03/13 Automotive Assembler Relationship Specialty Start Date End Date Ean Luu DO [address] [facility] [address] PCP - General Family Medicine 05/03/13 Automotive Assembler Relationship Specialty Start Date End Date Ean Luu DO [address] [place] [address] PCP - General Family Medicine 05/03/13 Automotive Assembler Relationship Specialty Start Date End Date Ean Luu DO [address] [place] [address] PCP - General Family Medicine 05/03/13 Automotive Assembler Relationship Specialty Start Date End Date Ean Luu DO [address] [facility] [place] [address] PCP - General Family Medicine 05/03/13 Automotive Assembler Relationship Specialty Start Date End Date Ean Luu DO [address] [place] [address] PCP - General Family Medicine 05/03/13 Automotive Assembler Relationship Specialty Start Date End Date Ean Luu DO [address] [place] [address] PCP - General Family Medicine 05/03/13 Automotive Assembler Relationship Specialty Start Date End Date Ean Luu DO [address] [place] [address] PCP - General Family Medicine 05/03/13 Automotive Assembler Relationship Specialty Start Date End Date Ean Luu DO [address] [place] [address] PCP - General Family Medicine 05/03/13 Jenn Sotelo, FINANCIAL AID.TONGUE STITCHER [address] [place] [address] Book Repairer Family Medicine 09/04/24 Alli Mullen, FINANCIAL AID.TONGUE STITCHER [address] [place] [address] Book Repairer Family Medicine 09/04/24 Automotive Assembler Relationship Specialty Start Date End Date Ean Luu DO [address] [place] [address] PCP - General Family Medicine 05/03/13 Alli Mullen, FINANCIAL AID.TONGUE STITCHER [address] [place] [address] Book Repairer Family Medicine 09/04/24 Automotive Assembler Relationship Specialty Start Date End Date Ean Luu DO [address] [place] [address] PCP - General Family Medicine 05/03/13 Alli Mullen, FINANCIAL AID.TONGUE STITCHER [address] [place] [address] Book Repairer Family Medicine 09/04/24 Prerna Vasquez, FINANCIAL AID.TONGUE STITCHER [address] [place] [address] Book Repairer Family Medicine 03/13/25 (unrecognized sect ion and content) No Status Records FoundNo Status Records FoundNo Status Records Found INFORMATION SOURCE (unrecogn ized section and content) DATE CREATED AUTHOR 12/05/2022 [facility] DATE CREATED AUTHOR AUTHOR'S ORGANIZ ATION 12/09/2024 [facility] DATE CREATED AUTHOR AUTHOR'S ORGANIZ ATION 12/13/2024 [facility] FOR RECORDS PERTAINING TO PATIENTS WHO ARE [...] BE BASED ON THE PRIMARY CLINICAL RECORDS. [employer] provides no warranty or guarantee of the accuracy or completeness of information in this document.
[2025-03-25] MEDS: 0.9% Normal Saline (1000mL) 1,000 ML 999 ML IV (03:20)
[2025-03-25] MEDS: 0.9% Saline Lock 10 ML Syringe IV ×4 (03:36→22:46)
[2025-03-25] MEDS: Pantoprazole Sodium 40 MG in 0.9% Normal Saline (100mL MB+) 100 ML 330 MG IV ×3 (03:37→22:42)
[2025-03-25] MEDS: Insulin Lispro 100 UNIT in 0.9% Normal Saline (100mL Bag) 99 ML 12.2 UNIT CONT INF ×2 (03:40→10:52)
[2025-03-25 03:41] LABS: Absolute Lymphocyte Count 1.11 X10^3/uL (0.83-4.51); Absolute Neutrophil Count 16.8 X10^3/uL (2.0-7.7); Basophil# 0.11 X10^3/uL; Basophil% 0.6 % (0-1); Eosinophil# 0.03 X10^3/uL; Eosinophils% 0.2 % (0-5); Hematocrit 48.9 % (40-54); Hemoglobin 16.8 g/dL (13.0-16.5); Lymphocyte # 1.11 X10^3/ul (0.83-4.51); Lymphocyte % 5.9 % (19-41); Mean Corp Hgb Conc 34.4 g/dL (32-36); Mean Corpuscular Hgb 28.3 pg (27.0-32.0); Mean Corpuscular Volume 82.3 fL (80-94); Monocyte# 0.45 X10^3/uL; Monocyte% 2.4 % (0-10); NRBC Flagged by Analyzer 0 % (0-5); Neutrophil # 16.84 X10^3/uL (2.7-7.7); Neutrophil % 89.4 % (47-70); Platelet Count 329 K/mm3 (150-450); RBC Distribution Width CV 13.8 % (11.6-14.6); RBC Distribution Width SD 40.4 fl (35.1-43.9); Red Blood Count 5.94 M/mm3 (4.6-6.2); White Blood Count 18.8 K/mm3 (4.4-11.0)
[2025-03-25] MEDS: Sodium Phosphate/Na Biphos 21 MMOL in 0.9% Normal Saline (250mL Bag) 250 ML 84 MMOL IV (03:41)
[2025-03-25] MEDS: Magnesium Sulfate 4gm/100mL 4 GM/100 ML IV.SOLN. IV (03:42)
[2025-03-25] MEDS: Atorvastatin Calcium 40 MG Tablet PO ×2 (03:47→22:42)
[2025-03-25] MEDS: Topiramate 50 MG Tablet PO ×2 (03:47→22:53)
[2025-03-25] MEDS: 0.9% Normal Saline (1000mL) 1,000 ML 125 ML IV (04:10)
[2025-03-25 04:32] LABS: Magnesium 1.3 mg/dL (1.5-2.2); Phosphorus 1.8 mg/dL (2.7-4.5); Procalcitonin 0.26 ng/mL (<=0.10)
[2025-03-25 04:34] LABS: ALB/GLOB Ratio 1.7 RATIO (0.9-2.4); AST(SGOT) 21 U/L (<=37); Alanine Aminotransfer ALT/SGPT 20 U/L (<=46); Albumin, Serum 4.2 g/dL (3.5-5.0); Alkaline Phosphatase 92 U/L (40-129); Anion Gap 16 (5-15); BUN 27 mg/dL (4-19); BUN/Creat Ratio 22.5 RATIO (10-20); Calcium,Total 8.7 mg/dL (7.6-11.0); Carbon Dioxide 13.2 mmol/L (21.0-32.0); Chloride 101 mmol/L (98-108); Creatinine, Serum 1.18 mg/dL (0.70-1.20); EST Glomerular Filtration Rate 76 (>60); Estimated Creatinine Clearance 97.62 ml/min (50-250); Globulin 2.4 g/dL (2.2-4.2); Glucose 422 mg/dL (70-99); Potassium 4.9 mmol/L (3.3-5.1); Protein, Total 6.6 g/dL (5.9-8.4); Sodium Level 130 mmol/L (133-145); Total Bilirubin 1.47 mg/dL (0.00-1.30)
[2025-03-25 06:00] LABS: Bedside Glucose 348 mg/dL (74-106)
[2025-03-25 06:00] LABS: Bedside Glucose 304 mg/dL (74-106)
[2025-03-25 06:00] LABS: Bedside Glucose 341 mg/dL (74-106)
[2025-03-25] MEDS: Dext 5%-0.45% NS 1,000 ML 150 ML IV ×2 (06:50→13:54)
[2025-03-25 06:55] LABS: Bedside Glucose 242 mg/dL (74-106)
--- NOTE | 2025-03-25 07:33 | PCM.PN.HOSP ---
Reason for Visit Reason for Visit: Diagnoses Acute kidney failure, unspecified (03/25/25) Diarrhea, unspecified (03/25/25) Objective Data Objective Data Vital Signs: Vital Signs Temp Pulse Resp BP Pulse Ox O2 Del Method 97.0 F L 90 16 121/69 H 90 Room Air 03/25/25 03:10 03/25/25 07:00 03/25/25 07:00 03/25/25 07:00 03/25/25 07:00 03/25/25 07:00 Oxygen Delivery Method Room Air Weight: 121.8 kg Body Mass Index (BMI) 39.6 Intake & Output: Intake and Output for Last 24 Hours 03/23/25 03/24/25 03/25/25 23:59 23:59 23:59 Intake Total 1999 1788.31 / 1788.31 Balance 1999 178.31 / 178.31 Lab / Micro Data 03/25/25 03:20 03/25/25 03:20 Labs: Laboratory Results - last 24 hr 03/24/25 19:53: WBC 21.2 H, RBC 6.67 H, Hgb 18.7 H*, Hct 56.3 H, MCV 84.4, MCH 28.0, MCHC 33.2, RDW Std Deviation 42.7, RDW Coeff of Hero 14.6, Plt Count 454 H, MPV 10.0, Immature Gran % (Auto) 1.400 H, Neut % (Auto) 70.6 H, Lymph % (Auto) 19.5, [place] % (Auto) 5.6, Eos % (Auto) 2.0, Baso % (Auto) 0.9, Absolute Neuts (auto) 15.0 H, Absolute Lymphs (auto) 4.14, Nucleated RBC % 0, Sodium 130 L, Potassium 3.7, Chloride 97 L, Carbon Dioxide 13.4 L, Anion Gap 19 H, BUN 26 H, Creatinine 1.56 H, Estim Creat Clear Calc 74.06, Est GFR (MDRD) Non-Af 54 L, BUN/Creatinine Ratio 16.3, Glucose 391 H, Lactic Acid 5.9 H*, Calcium 9.4, Phosphorus 2.1 L, Magnesium 1.3 L, Total Bilirubin 1.02, Direct Bilirubin 0.31 H, AST 23, ALT 27, Alkaline Phosphatase 110, Total Protein 7.6, Albumin 4.5, Globulin 3.0, Lipase 140 H, b-Hydroxybutyric mmol/L 0.5 H 03/24/25 23:10: Urine Color Yellow, Urine Clarity Clear, Urine pH 5.0, Ur Specific [place] 1.010, Urine Protein 100 H, Urine Glucose (UA) 1000 H, Urine Ketones 5 H, Urine Occult Blood Negative, Urine Nitrite Negative, Urine Bilirubin Negative, Urine Urobilinogen Normal, Ur Leukocyte Esterase Negative, Urine RBC 0 SEEN, Urine WBC 0 SEEN, Ur Squamous Epith Cells 0 SEEN, Calcium Oxalate Crystal 2+, Urine Bacteria RARE, Hyaline Casts 0-5 SEEN, Urine Mucus 0 SEEN 03/25/25 00:20: Lactic Acid 1.9 03/25/25 03:20: WBC 18.8 H, RBC 5.94, Hgb 16.8 H, Hct 48.9, MCV 82.3, MCH 28.3, MCHC 34.4, RDW Std Deviation 40.4, RDW Coeff of Hero 13.8, Plt Count 329, MPV 10.0, Immature Gran % (Auto) 1.500 H, Neut % (Auto) 89.4 H, Lymph % (Auto) 5.9 L, [place] % (Auto) 2.4, Eos % (Auto) 0.2, Baso % (Auto) 0.6, Absolute Neuts (auto) 16.8 H, Absolute Lymphs (auto) 1.11, Nucleated RBC % 0, Sodium 130 L, Potassium 4.9, Chloride 101, Carbon Dioxide 13.2 L, Anion Gap 16 H, BUN 27 H, Creatinine 1.18, Estim Creat Clear Calc 97.62, Est GFR (MDRD) Non-Af 76, BUN/Creatinine Ratio 22.5 H, Glucose 422 H, Hemoglobin A1c 11.0 H, Calcium 8.7, Phosphorus 1.8 L, Magnesium 1.3 L, Total Bilirubin 1.47 H, AST 21, ALT 20, Alkaline Phosphatase 92, Total Protein 6.6, Albumin 4.2, Globulin 2.4, Albumin/Globulin Ratio 1.7, Procalcitonin 0.26 H 03/25/25 03:36: POC Glucose 341 H 03/25/25 04:37: POC Glucose 348 H 03/25/25 05:42: POC Glucose 304 H 03/25/25 06:37: POC Glucose 242 H Radiography Diagnostic Testing: Radiology Impression Abdomen/Pelvis CT 03/24/25 22:25 IMPRESSION: 1. Small esophageal hiatal hernia. 2. Hepatomegaly with fatty infiltration. 3. Fecal retention in the colon consistent with constipation. 4. Umbilical hernia containing fat. 5. No obstructive uropathy. 6. Degenerative changes lumbar spine as described. Reading Location: [facility] Rhythm Strip Rhythm Strip: Sinus Rhythm Rate: 88 Ectopy: None
[2025-03-25 07:39] LABS: Anion Gap 13 (5-15); BUN 24 mg/dL (4-19); BUN/Creat Ratio 22.7 RATIO (10-20); Calcium,Total 8.2 mg/dL (7.6-11.0); Carbon Dioxide 15.4 mmol/L (21.0-32.0); Chloride 106 mmol/L (98-108); Creatinine, Serum 1.04 mg/dL (0.70-1.20); EST Glomerular Filtration Rate 88 (>60); Estimated Creatinine Clearance 110.76 ml/min (50-250); Glucose 271 mg/dL (70-99); Potassium 3.9 mmol/L (3.3-5.1); Sodium Level 134 mmol/L (133-145)
[2025-03-25 07:48] LABS: Bedside Glucose 239 mg/dL (74-106)
[2025-03-25 09:45] LABS: Bedside Glucose 236 mg/dL (74-106)
[2025-03-25 09:45] LABS: Bedside Glucose 223 mg/dL (74-106)
[2025-03-25] MEDS: Lactated Ringers 1,000 ML 999 ML IV (10:51)
[2025-03-25] MEDS: Enoxaparin 40 MG/0.4 ML Syringe SC (10:53)
[2025-03-25] MEDS: Allopurinol 300 MG Tablet PO (10:53)
[2025-03-25 11:50] LABS: Bedside Glucose 223 mg/dL (74-106)
[2025-03-25 11:52] LABS: Bedside Glucose 213 mg/dL (74-106)
[2025-03-25 13:13] LABS: Bedside Glucose 198 mg/dL (74-106)
[2025-03-25 13:48] LABS: Anion Gap 12 (5-15); BETA-HYDROXYBUTYRATE 0.1 mmol/L (0.0-0.3); BUN 20 mg/dL (4-19); BUN/Creat Ratio 20.8 RATIO (10-20); Calcium,Total 8.4 mg/dL (7.6-11.0); Carbon Dioxide 17.7 mmol/L (21.0-32.0); Chloride 106 mmol/L (98-108); Creatinine, Serum 0.96 mg/dL (0.70-1.20); EST Glomerular Filtration Rate 98 (>60); Estimated Creatinine Clearance 119.99 ml/min (50-250); Glucose 215 mg/dL (70-99); Sodium Level 135 mmol/L (133-145)
[2025-03-25 14:12] LABS: Bedside Glucose 172 mg/dL (74-106)
[2025-03-25] MEDS: Insulin NPH Human 100 UNITS/ML PEN 15 UNITS SC (15:25)
--- NOTE | 2025-03-25 15:38 | PN.HOSP_ITS ---
Hospitalist Note Mr. De La Rosa is a 50-year-old white male who presented to the emergency department due to intractable nausea vomiting and diarrhea. Patient reported he had multiple episodes starting on Thursday night and lightheadedness. Vital signs on presentation showed tachycardia and borderline blood pressures with systolic at 93. CBC showed a leukocytosis and elevated hemoglobin and was consistent with severe hemoconcentration. CMP showed hyponatremia with sodium of 130 however this is likely pseudohyponatremia as his blood glucose was 391. Anion gap was 19 with a serum bicarb of 13.4 and a lactic acid of 5.9 with a BUN of 26 and a serum creatinine 1.56. Patient is a diabetic at baseline and takes only metformin and glipizide. CT of his abdomen pelvis was performed and showed no acute findings which would be suggestive of why he was having symptoms. He looked markedly dehydrated on his UA but did not look infected. There was initial concern about sepsis however after reviewing the labs beta- hydroxybutyrate was performed and found to be positive and the patient was therefore diagnosed with DKA. Given the elevated beta hydroxybutyrate he was admitted to the ICU and placed on insulin drip. His hemoglobin A1c was found to be 11.0. The patient is indifferent with regards to his diet and his exercise. He states previously he exercise more and did not have as many problems with his diabetes. We discussed that is possible for him to pursue again however at this point given his A1c of 11 on oral agents already we will go ahead and start subcu insulin at least basal insulin at this time and have him follow-up with endocrinology after discharge. I do anticipate we should be able to transition him off the drip this afternoon to subcu insulin with instruction on pen usage and probable discharge home tomorrow as long as he continues to improve. With his diarrhea I suspect this is probably osmotic from his hyperglycemia however we did obtain a C. difficile and enteric panel both of which were negative. His diarrhea does seem to be improving. His nausea vomiting has resolved and we will let him start to intake some water with transition to regular diet once DKA has resolved. Anticipate discharge tomorrow as patient clinically remained stable.
--- NOTE | 2025-03-25 16:04 | CASEMGMT ---
INO ASH Assessment Face to Face with patient for initial transition planning/care coordination assessment. INO ASH introduced self and role at [facility], pt voices understanding. Pt is A&Ox4 and is resting comfortably in the chair and is calm. Pt's at bedside. Care providers, pharmacy, and demographics verified. Admitting dx: NVD, CELIA, DKA PCP: Ean Luu Specialists: Denies. Dr Douglas recommends f/u with Endocrinology. Pt provided with Dr Bean's (Local Ethylbenzene Converter Operator) information at this time. Pt thanks this INO ASH and plans to call to get established. Preferred Pharmacy:[facility] [place] Insurance: [facility] Prescription Benefit: Yes LNOK: Lilly (W) Living Arrangements: Pt lives with his and 21 y/o daughter in a single story home with 2 steps to enter ADLs/IADLs: Indep. 6-Click score is 20, no PT ordered. Pt denies concerns or needs Transportation: Self, DME: Pt states that he does not have any DM supplies currently. Pt states that he has an active order from his PCP for a glucometer and supplies and states that he plans to get this filled at his pharmacy after DC to help better manage his DM. Pt denies further needs. HHC/SNF: Denies hx or needs Pt?s goal: Home Plan: Home with DM supplies and follow up with Endocrinology to better help manage his DM. Pt states that he feels safe with this plan and denies the need for OP Tx or CCN. Pt agrees. Pt denies further concerns at this time and states that he will be ready for DC as early as tomorrow (per Dr Douglas's note). Lupe Espinosa RN, CM
[2025-03-25] MEDS: Insulin Lispro 100 UNIT/ML INSULN.PEN SC ×2 (16:54→22:57)
[2025-03-25 17:24] LABS: Bedside Glucose 155 mg/dL (74-106)
[2025-03-25] MEDS: 0.9% Normal Saline (500mL Bag) 500 ML 15 ML IV (22:44)
[2025-03-25] MEDS: Insulin Glargine-YFGN 100 UNIT/ML Pen 40 UNIT SC (23:00)
[2025-03-26 03:40] LABS: Bedside Glucose 217 mg/dL (74-106)
[2025-03-26 05:45] VITALS: BMI 39.7
[2025-03-26 05:53] LABS: Absolute Lymphocyte Count 1.76 X10^3/uL (0.83-4.51); Basophil# 0.08 X10^3/uL; Basophil% 0.7 % (0-1); Eosinophil# 0.42 X10^3/uL; Eosinophils% 3.4 % (0-5); Hemoglobin 14.5 g/dL (13.0-16.5); Lymphocyte # 1.76 X10^3/ul (0.83-4.51); Lymphocyte % 14.4 % (19-41); Mean Corp Hgb Conc 33.7 g/dL (32-36); Mean Corpuscular Hgb 28.2 pg (27.0-32.0); Mean Corpuscular Volume 83.7 fL (80-94); Mean Platelet Vol. 9.8 fl (6.2-12.0); Monocyte# 0.82 X10^3/uL; Monocyte% 6.7 % (0-10); NRBC Flagged by Analyzer 0 % (0-5); Neutrophil # 9.01 X10^3/uL (2.7-7.7); Neutrophil % 74.1 % (47-70); Platelet Count 225 K/mm3 (150-450); RBC Distribution Width CV 13.9 % (11.6-14.6); RBC Distribution Width SD 42.5 fl (35.1-43.9); Red Blood Count 5.14 M/mm3 (4.6-6.2); White Blood Count 12.2 K/mm3 (4.4-11.0)
[2025-03-26 06:21] VITALS: BP 123/64; PULSE 64; RESP 15; TEMP 36.6; O2SAT 94
[2025-03-26] MEDS: Insulin Lispro 100 UNIT/ML INSULN.PEN SC ×3 (06:26→15:42)
[2025-03-26 06:27] LABS: ALB/GLOB Ratio 1.7 RATIO (0.9-2.4); AST(SGOT) 16 U/L (<=37); Alanine Aminotransfer ALT/SGPT 17 U/L (<=46); Albumin, Serum 3.9 g/dL (3.5-5.0); Alkaline Phosphatase 85 U/L (40-129); Anion Gap 10 (5-15); BUN 17 mg/dL (4-19); BUN/Creat Ratio 20.2 RATIO (10-20); Calcium,Total 8.5 mg/dL (7.6-11.0); Carbon Dioxide 17.2 mmol/L (21.0-32.0); Chloride 109 mmol/L (98-108); Creatinine, Serum 0.84 mg/dL (0.70-1.20); EST Glomerular Filtration Rate 107 (>60); Estimated Creatinine Clearance 137.07 ml/min (50-250); Globulin 2.3 g/dL (2.2-4.2); Glucose 246 mg/dL (70-99); Magnesium 1.8 mg/dL (1.5-2.2); Phosphorus 1.5 mg/dL (2.7-4.5); Potassium 3.8 mmol/L (3.3-5.1); Protein, Total 6.2 g/dL (5.9-8.4); Sodium Level 136 mmol/L (133-145); Thyroid Stim Hormone (TSH) 0.339 uIU/mL (0.300-4.200); Total Bilirubin 0.71 mg/dL (0.00-1.30)
[2025-03-26 06:50] LABS: Bedside Glucose 235 mg/dL (74-106)
[2025-03-26 07:30] VITALS: O2SAT 94
[2025-03-26] MEDS: Pantoprazole Sodium 40 MG in 0.9% Normal Saline (100mL MB+) 100 ML 330 MG IV (08:24)
[2025-03-26] MEDS: Allopurinol 300 MG Tablet PO (08:25)
[2025-03-26] MEDS: Sodium Phosphate/Na Biphos 40 MMOL in 0.9% Normal Saline (500mL Bag) 500 ML 62.5 MMOL IV (09:08)
[2025-03-26 09:42] VITALS: BP 144/75; PULSE 82; RESP 16; TEMP 35.8; O2SAT 96
--- NOTE | 2025-03-26 11:31 | DS.PCM_ITS ---
Providers Date of Admission: 03/25/25 Date of Discharge: 03/26/25 Primary Care Physician: Dr. Ean Luu, Reason For Visit: N/V/D, CELIA, DKA Diagnosis Discharge Diagnosis (1) Acute kidney injury: Status: Acute Code(s): N17.9 - Acute kidney failure, unspecified (2) Diarrhea: Status: Acute Code(s): R19.7 - Diarrhea, unspecified Medications at Discharge Home Medications allopurinol 300 mg tablet 300 mg PO DAILY 12/28/18 atorvastatin 40 mg tablet 40 mg PO QHS 12/28/18 lisinopril 20 mg tablet 20 mg PO QHS 12/28/18 phentermine 37.5 mg tablet 37.5 mg PO DAILY 03/24/25 topiramate 50 mg tablet 50 mg PO QHS 03/24/25 insulin glargine-yfgn 100 unit/mL (3 mL) subcutaneous pen 50 unit (0.5 mL) subcut QHS #15 mL 03/26/25 loperamide 2 mg capsule (Anti-Diarrheal (loperamide)) 2 mg PO Q6H PRN loose stool #30 caps 03/26/25 metformin 1,000 mg tablet 1,000 mg PO BID #60 tabs 03/26/25 pen needle, diabetic 29 gauge x 3/16 (Easy Comfort Pen Hitchita) #100 ea 03/26/25 Hospital Course Summary of Care Provided Minutes Spent on Discharge: 38 Hospital Course: Mr. De La Rosa is a 50-year-old white male who presented to the emergency department due to intractable nausea vomiting and diarrhea. Patient reported he had multiple episodes starting on Thursday night and lightheadedness. Vital signs on presentation showed tachycardia and borderline blood pressures with systolic at 93. CBC showed a leukocytosis and elevated hemoglobin and was consistent with severe hemoconcentration. CMP showed hyponatremia with sodium of 130 however this is likely pseudohyponatremia as his blood glucose was 391. Anion gap was 19 with a serum bicarb of 13.4 and a lactic acid of 5.9 with a BUN of 26 and a serum creatinine 1.56. Patient is a diabetic at baseline and takes only metformin and glipizide. CT of his abdomen pelvis was performed and showed no acute findings which would be suggestive of why he was having symptoms. He looked markedly dehydrated on his UA but did not look infected. There was initial concern about sepsis however after reviewing the labs beta- hydroxybutyrate was performed and found to be positive and the patient was therefore diagnosed with DKA. Given the elevated beta hydroxybutyrate he was admitted to the ICU and placed on insulin drip. His hemoglobin A1c was found to be 11.0. The patient is indifferent with regards to his diet and his exercise. He states previously he exercise more and did not have as many problems with his diabetes. We discussed that is possible for him to pursue again however at this point given his A1c of 11 on oral agents already we will go ahead and start subcu insulin at least basal insulin at this time and have him follow-up with endocrinology after discharge. We will able to discontinue his insulin drip on the afternoon of 03/25/2025 and transition to subcu insulin. His initial bridge was with NPH and then he was started on Lantus 30 units at at bedtime. His blood sugar on the a.m. of 03/26/2025 was still in the 250 range so we did increase his Lantus to 50 units. He was very reluctant to use more injections at this time so what we did was discontinue his glipizide to avoid hypoglycemic events increase his Lantus to 50 units at at bedtime and increase his metformin from 750 mg daily to 1000 g p.o. twice daily. I have asked that he follow-up with endocrinology and see Dr. Bean at her first availability for assistance with his diabetes. With his diarrhea I suspect this is probably osmotic from his hyperglycemia however we did obtain a C. difficile and enteric panel both of which were negative. His diarrhea did improve and his nausea vomiting resolved. He was instructed to discharge that if he has ongoing issues with diarrhea he can use Imodium and I do recommend outpatient follow-up with gastroenterology for at the very least a screening colonoscopy even if his diarrhea resolves and if not would be a good opportunity to be further assessed with regards to this. He was instructed in proper injection of his insulin and was able to do so independently prior to discharge. He was also seen by the dietitian with regards to his diet and we did discuss the importance of exercise and insulin sensitivity and peripheral cells. His CELIA resolved with IV fluids. We were able to restart his lisinopril at the time of discharge for renal protection. Again, he is to follow-up with his primary care physician within the next week, endocrinology at endocrinology's first availability and gastroenterology for at the very least a screening colonoscopy. He was discharged in stable condition with prescriptions as noted above sent to local pharmacy prior to discharge on 03/26/2025. Discharge diagnoses: DKA-resolved DM-2 uncontrolled with A1c of 11 Metabolic acidosis CELIA Hypophosphatemia Leukocytosis Hypomagnesemia Essential hypertension Obesity Physical Exam Const alert, oriented x3, no apparent distress and no limitations; Negative for average body habitus or healthy appearing Constitutional Narrative: Morbidly obese, middle-aged, white male, sitting up in bed, appears comfortable, nontoxic, significant other at the bedside General Appearance: cooperative, comfortable, well kempt and well developed Exam Limitations: no limitations Nutritional Appearance: obese HEENT normocephalic, head/scalp atraumatic, hearing grossly normal bilaterally and moist oral mucous membranes HEENT Narrative: Mallampati 3, no thrush Eyes EOMs intact bilaterally and conjunctivae normal Eyes Narrative: No scleral icterus Neck supple Neck Narrative: Trachea midline Resp normal respiratory effort, no retractions, no use of accessory muscles and clear to auscultation bilaterally Auscultation: Negative for crackles, rhonchi or wheezes Cardio regular rate, regular rhythm, S1 normal heart sound, S2 normal heart sound, no murmurs, no rub, no gallops and no clicks GI normal to inspection, nondistended, normoactive bowel sounds, soft to palpation and non-tender GI Narrative: Protuberant abdomen Extremity no clubbing, cyanosis or edema Extremity Narrative: Pedal radial pulses are 2+ Skin no wounds, skin turgor normal and no jaundice Neuro oriented x3, moves all extremities and no focal motor deficits Speech: speech normal Psych Psych Narrative: Affect is flat but patient does interact and answer questions appropriately Weight / BMI Weight Weight: 121.7 kg Body Mass Index (BMI) 39.7 ABG / Lab / Microbiology Data 03/26/25 05:30 03/26/25 05:30 Laboratory: Laboratory Results - last 24 hr 03/25/25 10:47: POC Glucose 213 H 03/25/25 11:29: POC Glucose 223 H 03/25/25 12:45: Sodium 135, Potassium 4.0, Chloride 106, Carbon Dioxide 17.7 L, Anion Gap 12, BUN 20 H, Creatinine 0.96, Estim Creat Clear Calc 119.99, Est GFR (MDRD) Non-Af 98, BUN/Creatinine Ratio 20.8 H, Glucose 215 H, Calcium 8.4, b- Hydroxybutyric mmol/L 0.1 03/25/25 12:52: POC Glucose 198 H 03/25/25 13:52: POC Glucose 172 H 03/25/25 16:48: POC Glucose 155 H 03/25/25 22:56: POC Glucose 217 H 03/26/25 05:30: WBC 12.2 H, RBC 5.14, Hgb 14.5, Hct 43.0, MCV 83.7, MCH 28.2, MCHC 33.7, RDW Std Deviation 42.5, RDW Coeff of Hero 13.9, Plt Count 225, MPV 9.8, Immature Gran % (Auto) 0.700, Neut % (Auto) 74.1 H, Lymph % (Auto) 14.4 L, [place] % (Auto) 6.7, Eos % (Auto) 3.4, Baso % (Auto) 0.7, Absolute Neuts (auto) 9.0 H, Absolute Lymphs (auto) 1.76, Nucleated RBC % 0, Sodium 136, Potassium 3.8, Chloride 109 H, Carbon Dioxide 17.2 L, Anion Gap 10, BUN 17, Creatinine 0.84, Estim Creat Clear Calc 137.07, Est GFR (MDRD) Non-Af 107, BUN/Creatinine Ratio 20.2 H, Glucose 246 H, Calcium 8.5, Phosphorus 1.5 L, Magnesium 1.8, Total Bilirubin 0.71, AST 16, ALT 17, Alkaline Phosphatase 85, Total Protein 6.2, Albumin 3.9, Globulin 2.3, Albumin/Globulin Ratio 1.7, TSH 0.339 03/26/25 06:25: POC Glucose 235 H Microbiology: Microbiology 03/25/25 09:15 Stool Clostridioides difficile (PCR) - Final 03/25/25 09:15 Stool Enteric Bacteriology - Final D/C Instructions Discharge Diet: Low fat / Low cholesterol Discharge Activity: Return to Normal Activity Return to work on: 03/26/25 DC O2, CPAP, BIPAP Needs Home O2 Discharge instructions: No Meaningful Use Info Meaningful Use Meaningful Use Diagnoses (Choose all that apply): None applicable Ischemic Stroke Statin Dosing Therapy Reference: STATIN DOSE THERAPY REFERENCE: * Patients > 75 years receive moderate or high dose statin therapy. * Patients 75 years or YOUNGER should receive HIGH intensity statin dose unless contraindicated. You will be required to document reason for non-treatment if statin daily dose does not meet guidelines. HIGH DOSE STATIN THERAPY DAILY Atorvastatin > than or = to 40 mg Rosuvastatin > than or = to 20 mg Amlodipine + Atorvastatin > than or = to 2.5/40 mg Ezetimibe + Simvastatin 10/80 mg Simvastatin 80mg Discharge Plan Admission Admit Date/Time: 03/25/25 00:16 Primary Reason for Your Visit: Abdominal pain/nausea/vomiting Attending Provider: Vickie Douglas Primary Care Provider: Ean Luu Consulting Providers: Sridevi Dillon Instructions Additional Instructions / Restrictions: 1. Take your insulin as directed. If you get sick to the point where you are not able to eat and having nausea and vomiting, please reduce your insulin dose from 50 units to 25 units and call the coding analyst or your primary care physician 2. Please check your blood sugars fasting in the morning before you eat and before lunch and dinner and write them down and take them to your doctors appointments 3. Stop your glipizide as this in combination with your insulin could drop your blood sugars to an unsafe level. See increase in metformin dose 4. Use as needed Imodium for diarrhea and if this is persistent please call number below to follow-up with gastroenterology-Dr. Travis Discharge Orders/Prescriptions Prescriptions: New insulin glargine-yfgn 100 unit/mL (3 mL) Insulin Pen 50 unit subcut QHS Qty: 15 2RF metformin 1,000 mg tablet 1,000 mg PO BID Qty: 60 2RF loperamide [Anti-Diarrheal (loperamide)] 2 mg capsule 2 mg PO Q6H PRN (Reason: loose stool) Qty: 30 0RF (DME) Easy Comfort Pen Hitchita 29 gauge x 3/16 needle See Rx Instructions .Route Qty: 100 1RF Rx Instructions: As directed Continued atorvastatin 40 MG tablet 40 mg PO QHS lisinopril 20 MG tablet 20 mg PO QHS allopurinol 300 MG tablet 300 mg PO DAILY phentermine 37.5 mg tablet 37.5 mg PO DAILY Rx Instructions: must administer 30 minutes before or 1-2 hours after breakfast topiramate 50 mg tablet 50 mg PO QHS Discontinued metformin 500 MG tablet 750 mg PO DAILY glipizide 10 mg tablet extended release 24hr 10 mg PO QPM Other Ambulatory Orders: Glucometer (Routine) Timeframe: 1 Day Location: Determined by Patient Ordered By: Dr. Vickie Douglas Referrals / Follow Up: Ean Luu DO [Primary Care Provider] - Within 1 Week Sandeep Travis DO [Med Staff - Active Staff] - See Referral Note (As needed for diarrhea. I do recommend you follow-up to get a colonoscopy.) Armin Bean MD [Med Staff - Courtesy Staff] - See Referral Note (Call tomorrow to be seen seen at Dr. Bean's first availability) Disposition Disposition (needs filled in before D/C Order can be placed): Home, Self Care Charges/Coding Visit Charges Inpatient E&M: 47583 Disch Hosp >30min
[2025-03-26 11:33] LABS: Bedside Glucose 176 mg/dL (74-106)
[2025-03-26 14:56] VITALS: BP 136/82; PULSE 74; RESP 18; TEMP 36.6; O2SAT 98
[2025-03-26 16:04] LABS: Bedside Glucose 177 mg/dL (74-106)
== END 2025-03-26 16:02 | disposition home or self-care (01) | DRG 639 ==
LOC: ED 23:53 → ICU 03-25 01:29 → MS3 03-25 17:56
PROVIDERS: Admitting Provider Family Medicine; Emergency Provider Emergency Medicine; PCP Student in an Organized Health Care Education/Training Program; Visit Provider Internal Medicine
DX: E11.10 Type 2 diabetes mellitus with ketoacidosis without coma (principal); E83.39 Other disorders of phosphorus metabolism; E66.01 Morbid (severe) obesity due to excess calories; E11.65 Type 2 diabetes mellitus with hyperglycemia; D72.829 Elevated white blood cell count, unspecified; E78.5 Hyperlipidemia, unspecified; I10 Essential (primary) hypertension; E86.0 Dehydration; I95.9 Hypotension, unspecified; R19.7 Diarrhea, unspecified; M10.9 Gout, unspecified; G47.33 Obstructive sleep apnea (adult) (pediatric); E87.8 Other disorders of electrolyte and fluid balance, not elsewhere classified; E86.1 Hypovolemia; E83.42 Hypomagnesemia; R21 Rash and other nonspecific skin eruption; Z79.84 Long term (current) use of oral hypoglycemic drugs; Z68.39 Body mass index [BMI] 39.0-39.9, adult; Z79.899 Other long term (current) drug therapy
CPT/HCPCS: 36415; 74177; 80048; 80053; 80076; 81001; 82010; 82962; 83036; 83605; 83690; 83735; 84100; 84145; 84443; 85025; 87493; 87506; 94668; 99284; Q9967; A4216; J2405